=== PATIENT | male | born 1995 | race Two or more races ===

== ENCOUNTER 2023-12-25 21:32 | Emergency (ER) | payer MEDICAID, SELFPAY ==
[2023-12-25 22:05] VITALS: BP 124/81; PULSE 62; RESP 16; TEMP 36.6; O2SAT 99
[2023-12-25] MEDS: LORazepam 0.5 MG TABLET 2 MG PO (22:20)
[2023-12-25 22:42] LABS: Basophils # (Auto) 0.1 Thou/mm3 (0.0-0.2); Basophils % (Auto) 2 % (0-2.5); Eosinophils # (Auto) 0.1 Thou/mm3 (0.0-0.5); Eosinophils % (Auto) 3 % (0-10); Hemoglobin 14.3 g/dL (13.5-16.0); Immature Granulocytes % (Auto) 0 % (0-0); Immature Granulocytes Auto 0.01 Thou/mm3 (0.00-0.00); Lymphocytes # (Auto) 2.9 Thou/mm3 (1.0-4.8); Lymphocytes % (Auto) 65 % (10-50); Mean Corpuscular HGB Conc 35.8 g/dl (31.0-37.0); Mean Corpuscular Hemoglobin 35.6 pg (25.0-35.0); Mean Corpuscular Volume 100 fL (80-100); Monocytes # (Auto) 0.4 Thou/mm3 (0.0-0.8); Monocytes % (Auto) 8 % (0-12); Neutrophils % (Auto) 22 % (37-80); Nucleated Red Blood Cell % 0 /100 WBC (0); Platelet Count 366 Thou/mm3 (140-440); RDW Standard Deviation 49.8 fL (35.1-43.9); Red Blood Count 4.02 Miln/mm3 (4.50-5.90); White Blood Count 4.5 Thou/mm3 (3.8-10.6)
[2023-12-25 23:00] LABS: Alanine Aminotransferase 47 U/L (10-49); Albumin, Serum 5.2 gm/dL (3.5-5.0); Albumin/Globulin Ratio 1.6 (1.2-2.2); Alkaline Phosphatase 152 U/L (46-116); Anion Gap 11 (7-16); Aspartate Amino Transferase 91 U/L (0-34); BUN/Creatinine Ratio 6 Ratio (12-20); Bilirubin,Total 0.5 mg/dL (0.3-1.2); Blood Urea Nitrogen 5 mg/dL (9-23); Calcium 9.3 mg/dL (8.3-10.6); Calcium (Corrected) 9.3 mg/dL (8.5-10.1); Chloride 103 mMol/L (98-107); Creatinine (Component) 0.8 mg/dL (0.6-1.3); Globulin 3.2 gm/dL (2.3-3.5); Glucose 92 mg/dL (74-106); Magnesium 2.3 mg/dL (1.6-2.6); Osmolality,Calculated 274 (275-295); Phosphorous 4.1 mg/dL (2.4-5.1); Potassium 3.6 mMol/L (3.4-5.1); Sodium 139 mMol/L (136-145); Total Protein 8.4 gm/dL (5.7-8.2); eGFR > 60 See Note
--- NOTE | 2023-12-25 23:48 | XR_ITS ---
Examination: PA lateral chest 2 views Technique: Upright PA lateral chest 2 views Exam date and time: December 25, 2023 11:56 PM Indications: Onset chest pain today Findings: Normal heart size Lungs are clear. The osseous structures are intact Impression: No active disease
--- NOTE | 2023-12-25 23:49 | PD.EDRME ---
Rapid Medical Screening Exam RME Arrival date/time: 12/25/23 21:32 Chief Complaint: Seizure Time Seen by Provider: 12/25/23 22:04 Vital signs: Vital Signs Temperature 97.8 F 12/25/23 22:05 Pulse Rate 62 12/25/23 22:05 Respiratory Rate 16 12/25/23 22:05 Blood Pressure 124/81 12/25/23 22:05 Pulse Oximetry (%) 99 12/25/23 22:05 Oxygen Delivery Method Room Air 12/25/23 22:05 Vital signs reviewed by provider: Yes RME Narrative: 28-year-old male with history of alcohol withdrawal and alcohol withdrawal seizures, currently still drinking, cirrhosis, coming in because he is not feeling well. He states that he is feeling shaky. He last had beers today. This is similar to his previous presentations. Today it is not as worse. No syncope, or hallucinations.
[2023-12-26 00:25] VITALS: BP 116/76; PULSE 65; RESP 16; TEMP 36.4; O2SAT 97
--- NOTE | 2023-12-26 03:46 | PC.NURSE ---
PT SLEEPING IN ER LOBBY ON CHAIRS, PT IN ACUTE DISTRESS. PT WALKED TO TRIAGE DESK ASKING FOR WATER AND WATER WAS GIVEN.
--- NOTE | 2023-12-26 05:05 | PC.NURSE ---
PT AWAKE AND WALKING AROUND ED LOBBY. PT WALKING WITH A STEADY GAIT. PT STATES HE IS READY TO GO HOME. PT A/OX3 GCS 15. ALL DISCHARGE INSTRUCTIONS REVIEWED WITH PT. ALL QUESTIONS ANSWERED. PT VERBALLY STATES HE UNDERSTANDS.
[2023-12-26 05:29] VITALS: BP 142/67; PULSE 87; RESP 19; TEMP 36.7; O2SAT 99
--- NOTE | 2024-01-14 05:31 | PD.EDADULT ---
ED General RME/HPI General Chief complaint: Seizure Stated complaint: Seizures/Hx ETOH Time Seen by Provider: 12/25/23 22:04 Arrival date/time: 12/25/23 21:32 Limitations: no limitations RME / HPI RME / HPI narrative: 28-year-old male with history of alcohol withdrawal and alcohol withdrawal seizures, currently still drinking, cirrhosis, coming in because he is not feeling well. He states that he is feeling shaky. He last had beers today. This is similar to his previous presentations. Today it is not as worse. No syncope, or hallucinations. Related Data Previous Rx's ?Medication ?Instructions ?Recorded pantoprazole 40 mg tablet,delayed 40 mg PO QDAY 40 days #40 tabs 12/12/23 release thiamine mononitrate (vit B1) 100 100 mg PO QDAY #30 tabs 12/12/23 mg tablet (Vitamin B-1 (mononitrate)) ondansetron 4 mg disintegrating 4 mg PO Q8H PRN nausea and 01/04/24 tablet vomiting #10 tabs Allergies Allergy/AdvReac Type Severity Reaction Status Date / Time No Known Allergies Allergy Verified 01/03/24 17:13 Review of Systems Review of Systems Systems Reviewed: All systems reviewed, normal except as documented Past Medical History Past Medical History NEUROLOGIC: Positive Neurological Disorders and Seizures CARDIAC: Negative Cardiac Disorders or Congestive Heart Failure RESPIRATORY: Negative Chronic Obstructive Pulmonary Disease (COPD) or Asthma GASTROINTESTINAL: Positive Gastrointestinal Disorders and Cirrhosis GENITOURINARY: Negative Genitourinary Disorders or Renal Disease MUSCULOSKELETAL: Negative Musculoskeletal Disorders ENDOCRINE: Negative Diabetes Mellitus Type 1 or Diabetes Mellitus Type 2 HEMATOLOGIC: Negative Sickle Cell Disease PSYCHO/SOCIAL: Positive Depression and Anxiety OTHER HISTORY: Negative Autoimmune Disease, Blood Transfusions, Blood Transfusion Reaction, Anesthesia Reactions, MRSA or Cancer Family History FAMILY HISTORY: Positive Family Psychiatric Problems; Negative Family Respiratory Disorders, Family Cardiac Disorders, Family Gastrointestinal Problems, Family Cancer, Family Surgery or Family Anesthesia Reaction Surgical History SURGICAL: Negative Abdominal Surgery Social History SMOKING STATUS: Never smoker SECOND HAND EXPOSURE: No ED Exam General Limitations: Present no limitations General appearance: Present alert and in no apparent distress Head Head exam: Present atraumatic and other (Facial muscle wasting) Eye Eye exam: Present normal appearance, PERRL and EOMI ENT ENT exam: Present normal exam, normal oropharynx and mucous membranes moist Neck Neck exam: Present normal inspection, full ROM and trachea midline Chest Chest inspection: Present normal inspection and symmetric chest wall rise Respiratory Respiratory exam: Present normal lung sounds bilaterally Cardiovascular Cardiovascular exam: Present regular rate, normal rhythm and normal heart sounds Abdominal Exam Abdominal exam: Present soft, normal bowel sounds and other (No ascites) Extremities Exam Extremities exam: Present normal inspection and full ROM Back Exam Back exam: Present normal inspection and full ROM Neurological Exam Neurological exam: Present alert, oriented X3 and CN II-XII intact Psychiatric Psychiatric exam: Present normal affect and normal mood Skin Skin exam: Present warm, dry, intact and normal color Course Course Course Narrative: Patient given IV fluid Quality Measures none Orders Category Date Time Status EKG (ED ONLY) *Do not use* NOW Care 12/25/23 23:46 Completed IV [Insert IV] STAT Care 12/25/23 22:06 Completed Seizure precautions ONCE Care 12/25/23 22:06 Completed CXR2 [XR chest 2V] Stat Exams 12/25/23 23:48 Completed EKG (ED Only) Stat Exams 12/25/23 23:46 Ordered CBC Stat Lab 12/25/23 22:34 Completed CMP [Comprehensive Metabolic Panel] Stat Lab 12/25/23 22:34 Completed Mag [Magnesium] Stat Lab 12/25/23 22:34 Completed Phosphorous Stat Lab 12/25/23 22:34 Completed LORazepam [Ativan] Med 12/25/23 22:05 Discontinued 2 mg PO X1 ONE Vital Signs Vital signs: Vital Signs Temperature 97.8 F 12/25/23 22:05 Pulse Rate 62 12/25/23 22:05 Respiratory Rate 16 12/25/23 22:05 Blood Pressure 124/81 12/25/23 22:05 Pulse Oximetry (%) 99 12/25/23 22:05 Oxygen Delivery Method Room Air 12/25/23 22:05 [facility] Patient data External records reviewed:: Other (specify) (Seen in ED for alcohol withdrawals) Clinical information provided by:: patient Social determinants that could affect healthcare access:: alcohol use Patient has the following chronic illnesses:: Alcohol use How is presenting disease/condition affected by chronic disease/condition?: exacerbated by Evaluation data The following diagnostics were reviewed and interpreted by me:: lab results Lab and/or radiology exams considered but not ordered:: None Interpretation Summary: No hyponatremia Medications Medications considered but not ordered:: None Medication administrations:: Medication Administration History Discontinued Medications Lorazepam (Lorazepam 0.5 Mg Tablet) 2 mg PO X1 ONE Stop: 12/25/23 22:06 Last Admin: 12/25/23 22:20 Dose: 2 mg Documented By: As above Consultations Consultation(s) initiated? (list below): No Diagnosis Differential Diagnosis ED Complaint MDM: See above Most likely diagnosis given after review of the tests above:: Alcohol use Admission Indicated Admission indicated?: not indicated Explain why admission is indicated or not indicated:: Patient tolerating p.o. Not having alcohol withdrawal seizures Admission Request Was there a request for admission?: No Disposition Plan Disposition Plan: Discharge Discharge Attestation Discharge Attestation: The patient and all family members were given an opportunity to ask questions and understood the discharge instructions. Discharge instructions specifically effects, indications for sooner follow up or return to the emergency department, and the expected course of current diagnosis. Patient condition: Stable Medical Decision Making MDM Narrative MDM Narrative: Differential diagnosis includes dehydration, early withdrawals, electrolyte abnormality, intoxication Differential Diagnosis Differential Diagnosis: See above Medical Records Medical records reviewed: Yes I reviewed the patient's medical records. Medical records narrative: Patient history of alcohol withdrawals Lab Data 12/25/23 22:34 12/25/23 22:34 Labs: Lab Results 12/25/23 Range/Units 22:34 WBC 4.5 (3.8-10.6) Thou/mm3 RBC 4.02 L (4.50-5.90) Miln/mm3 Hgb 14.3 (13.5-16.0) g/dL Hct 40.0 L (41.0-53.0) % MCV 100 (80-100) fL MCH 35.6 H (25.0-35.0) pg MCHC 35.8 (31.0-37.0) g/dl RDW Std Deviation 49.8 H (35.1-43.9) fL Plt Count 366 D (140-440) Thou/mm3 Neut % (Auto) 22 L (37-80) % Lymph % (Auto) 65 H (10-50) % Eddy % (Auto) 8 (0-12) % Eos % (Auto) 3 (0-10) % Baso % (Auto) 2 (0-2.5) % Neut # (Auto) 1.0 L (1.8-7.7) Thou/mm3 Lymph # (Auto) 2.9 (1.0-4.8) Thou/mm3 Eddy # (Auto) 0.4 (0.0-0.8) Thou/mm3 Eos # (Auto) 0.1 (0.0-0.5) Thou/mm3 Baso # (Auto) 0.1 (0.0-0.2) Thou/mm3 Immature Gran # (Auto) 0.01 H (0.00-0.00) Thou/mm3 Absolute Nucleated RBC 0.00 (0.00-0.00) Thou/mm3 Immature Gran % 0 (0-0) % Nucleated RBC % 0 (0) /100 WBC Sodium 139 (136-145) mMol/L Potassium 3.6 (3.4-5.1) mMol/L Chloride 103 (98-107) mMol/L Carbon Dioxide 25.0 (20.0-31.0) mMol/L Anion Gap 11 (7-16) BUN 5 L (9-23) mg/dL Creatinine 0.8 (0.6-1.3) mg/dL Estim Creat Clear Calc Not Performed. eGFR > 60 (60 - ) See Note BUN/Creatinine Ratio 6 L (12-20) Ratio Glucose 92 (74-106) mg/dL Calculated Osmolality 274 L (275-295) Calcium 9.3 (8.3-10.6) mg/dL Corrected Calcium 9.3 (8.5-10.1) mg/dL Phosphorus 4.1 (2.4-5.1) mg/dL Magnesium 2.3 (1.6-2.6) mg/dL Total Bilirubin 0.5 (0.3-1.2) mg/dL AST 91 H (0-34) U/L ALT 47 (10-49) U/L Alkaline Phosphatase 152 H (46-116) U/L Total Protein 8.4 H (5.7-8.2) gm/dL Albumin 5.2 H (3.5-5.0) gm/dL Globulin 3.2 (2.3-3.5) gm/dL Albumin/Globulin Ratio 1.6 (1.2-2.2) Discharge Plan Plan Patient Disposition: HOME (Self Care) Patient condition on transfer: Stable Prescriptions/Referrals Prescriptions/Med Rec: No Action pantoprazole 40 mg Tablet,Delayed Release (Dr/Ec) 40 mg PO QDAY 40 Days Qty: 40 0RF thiamine mononitrate (vit B1) [Vitamin B-1 (mononitrate)] 100 mg Tablet 100 mg PO QDAY Qty: 30 0RF ondansetron 4 mg tablet,disintegrating 4 mg PO Q8H PRN (Reason: nausea and vomiting) Qty: 10 0RF Referrals: Balwinder Humphrey MD [Primary Care Provider] - In 1 week Problem List Clinical Impression: History of alcohol use Patient/Caregiver Discharge Instructions Diet Instructions: Stay hydrated with Pedialyte and Gatorade please see your primary care physician in the next few days. If you do not have a primary care physician you can call [phone] to make an appointment at the [facility]. Return to the emergency department for worsening symptoms, new concerns. Education Materials: Addiction Ask These Questions Print Language: [place] Rican Stand Alone Forms: Claire Award Info., Patient Portal Info Letter
== END 2023-12-26 05:34 | disposition home or self-care (01) ==
PROVIDERS: Emergency Provider Emergency Medicine; PCP Family Medicine
DX: F10.90 Alcohol use, unspecified, uncomplicated (principal); R56.9 Unspecified convulsions; R07.9 Chest pain, unspecified
CPT/HCPCS: 36415; 71046; 80053; 83735; 84100; 85025; 93005; 99283; A9270

== ENCOUNTER 2024-01-03 17:09 | Emergency (ER) | payer MEDICAID, SELFPAY ==
[2024-01-03 17:18] VITALS: BP 151/96; PULSE 95; RESP 18; TEMP 36.6; O2SAT 97; BMI 23.1
--- NOTE | 2024-01-03 17:38 | XR_ITS ---
Examination: Hand, right 3 views Technique: Hand AP, oblique, lateral 3 views Date and time of exam: January 03, 2024 1819 hrs. Indications: Work injury to the hand today, hand pain Findings: No acute fracture There is no true lateral view No opaque foreign body Impression: No acute fracture
--- NOTE | 2024-01-03 17:38 | XR_ITS ---
Examination: CT cervical spine without contrast 2-D sagittal reconstructions 2-D coronal reconstructions 3-D reconstructions. Exam date and time:January 03, 2024 1750 hrs. Indications: Seizure yesterday, patient fell with injury to the neck, neck pain Comparison: August 11, 2023 CTDI:vol (mGy) 8.16 DLP: (mGycm) 180 Technique: Multiple 2 mm axial sections of the cervical spine have been obtained. The coronal and sagittal reconstructions have been obtained. 3-D reconstructions have been obtained. Low dose protocols were performed. One or more of the following dose reduction techniques were used; automated exposure control, adjustment of the mA and/or KV according to patient size, use of iterative reconstruction technique. Findings: Axial sections demonstrate intact base of the skull. C1 exhibit satisfactory relationship to the odontoid. No acute cervical vertebral body fracture seen. Alignment posterior spinous processes satisfactory. Impression: No acute cervical fracture.
--- NOTE | 2024-01-03 17:38 | XR_ITS ---
Examination: Shoulder,right, 3 views Technique: Shoulder AP internal rotation, AP external rotation, Y view shoulder, 3 views Exam date and time :January 03, 2024 1619 hrs. Indications: Work injury to the shoulder today, shoulder pain. Findings: No acute fracture No shoulder dislocation Impression: No acute fracture
--- NOTE | 2024-01-03 17:38 | XR_ITS ---
Examination: CT brain head without contrast. 2-D sagittal coronal reconstructions Date and time of exam:January 03, 2024 1750 hrs. Comparison December 08, 2023 Indications: Seizure yesterday with injury to the head, head pain after falling CTDI: vol (mGy):46.2 DLP: (mGycm):965 Technique: Multiple CT axial sections of the brain have been obtained, 5 mm slice thickness. Contrast has not been administered. 2-D sagittal, coronal reconstructions have been obtained Low dose protocols were performed. One or more of the following dose reduction techniques were used; automated exposure control, adjustment of the mA and/or KV according to patient size, use of iterative reconstruction technique. Findings: Streak artifacts significantly limit this study No significant ventricular enlargement. Intra-axial or extra-axial hemorrhage density is not seen. No mass effect or midline shift Basal cisterns are not remarkable. Fourth ventricle is midline. Cranial vault intact. Impression: Streak artifacts limit this study No gross hemorrhage mass effect or midline shift
--- NOTE | 2024-01-03 17:38 | XR_ITS ---
Examination: CT chest, without intravenous contrast. CT abdomen, without intravenous contrast. CT pelvis, without intravenous contrast. 2-D sagittal and coronal reconstructions. 3-D reconstructions. Date and time of exam:January 03, 2024 1753 hrs. Indications: Seizure yesterday, patient fell with injury to the chest and abdomen, chest pain abdomen pain CTDI vol (mgy) 5.98 DLP (MGycm)435 Technique: Multiple CT images, 3.0 mm slice thickness, obtained chest, abdomen, pelvis, with the high-resolution 64 slice scanner.. Sagittal and coronal 2-D reconstructions are obtained. 3-D reconstructions Low dose protocols were performed. One or more of the following dose reduction techniques were used; automated exposure control, adjustment of the mA and/or KV according to patient size, use of iterative reconstruction technique. Findings: Lack of the intravenous contrast significantly limits assessment of body trauma Tiny air droplets adjacent to the rib sternal junctions Thoracic aorta pulmonary arteries intact No hemopericardium No pneumothorax pulmonary contusion or hemothorax Sternum thoracic vertebral bodies, ribs appear intact No liver splenic or renal laceration, no perinephric hematoma Liver is mildly irregular in contour Tiny gallstone Abdominal aorta intact No free blood in the abdomen Tiny fat-containing umbilical hernia Negative for pneumoperitoneum Urinary bladder intact Lumbar vertebral bodies bones of the pelvis and hips appear intact Impression: Thoracic aorta pulmonary arteries intact No hemopericardium pneumothorax pulmonary contusion or hemothorax No abdominal parenchymal laceration Abdominal aorta intact No free blood in the abdomen or pelvis Suspect primary hepatocellular disease
--- NOTE | 2024-01-03 17:39 | PD.EDRME ---
Rapid Medical Screening Exam RME Arrival date/time: 01/03/24 17:09 28-year-old male everyday drinker presents emergency department stating that he fell from a ladder yesterday Chief Complaint: Fall Time Seen by Provider: 01/03/24 17:31 Vital signs: Vital Signs Temperature 98 F 01/03/24 17:18 Pulse Rate 95 01/03/24 17:18 Respiratory Rate 18 01/03/24 17:18 Blood Pressure 151/96 H 01/03/24 17:18 Pulse Oximetry (%) 97 01/03/24 17:18 Oxygen Delivery Method Room Air 01/03/24 17:18
[2024-01-03 18:40] LABS: Basophils % (Auto) 1 % (0-2.5); Eosinophils % (Auto) 1 % (0-10); Hematocrit 41.6 % (41.0-53.0); Hemoglobin 14.8 g/dL (13.5-16.0); Immature Granulocytes % (Auto) 0 % (0-0); Immature Granulocytes Auto 0.01 Thou/mm3 (0.00-0.00); Lymphocytes % (Auto) 64 % (10-50); Mean Corpuscular HGB Conc 35.6 g/dl (31.0-37.0); Mean Corpuscular Hemoglobin 35.5 pg (25.0-35.0); Mean Corpuscular Volume 100 fL (80-100); Monocytes # (Auto) 0.4 Thou/mm3 (0.0-0.8); Monocytes % (Auto) 10 % (0-12); Neutrophils # (Auto) 1.2 Thou/mm3 (1.8-7.7); Neutrophils % (Auto) 25 % (37-80); Nucleated Red Blood Cell % 0 /100 WBC (0); Platelet Count 210 Thou/mm3 (140-440); RDW Standard Deviation 49.4 fL (35.1-43.9); Red Blood Count 4.17 Miln/mm3 (4.50-5.90); White Blood Count 4.7 Thou/mm3 (3.8-10.6)
[2024-01-03 18:54] LABS: Partial Thromboplastin Time 31.6 Seconds (22.0-36.0); Prothrombin Time 10.9 Seconds (9.0-12.2)
[2024-01-03 19:08] LABS: Alanine Aminotransferase 61 U/L (10-49); Albumin, Serum 5.2 gm/dL (3.5-5.0); Albumin/Globulin Ratio 1.7 (1.2-2.2); Alkaline Phosphatase 181 U/L (46-116); Anion Gap 12 (7-16); Aspartate Amino Transferase 174 U/L (0-34); BUN/Creatinine Ratio 5 Ratio (12-20); Bilirubin,Total 0.5 mg/dL (0.3-1.2); Blood Urea Nitrogen < 5 mg/dL (9-23); Calcium 9.3 mg/dL (8.3-10.6); Calcium (Corrected) 9.3 mg/dL (8.5-10.1); Carbon Dioxide 27.4 mMol/L (20.0-31.0); Chloride 99 mMol/L (98-107); Estimated Creatinine Clearance 93.7 mL/min (>60); Globulin 3.1 gm/dL (2.3-3.5); Glucose 94 mg/dL (74-106); Osmolality,Calculated 272 (275-295); Potassium 3.8 mMol/L (3.4-5.1); Sodium 138 mMol/L (136-145); Total Protein 8.3 gm/dL (5.7-8.2); eGFR > 60 See Note
[2024-01-03 19:10] LABS: Alcohol, Blood Medical 503.1 mg/dL (0-10.0)
--- NOTE | 2024-01-03 23:46 | EDNOTE_ITS ---
ED General RME/HPI General Chief complaint: Fall Stated complaint: BODY PAIN POST FALL TREE YESTERDAY; HX SEIZURE/CVA Time Seen by Provider: 01/03/24 17:31 Arrival date/time: 01/03/24 17:09 RME / HPI RME / HPI narrative: 01/03/24 17:09 28-year-old male everyday drinker presents emergency department stating that he fell from a ladder yesterday ----- Dr. Rascon?s Main ED Evaluation: 28yo male with a history of cirrhosis, alcohol abuse presents to the ED for a fall. Patient states he fell yesterday (does not specify how) and had generalized body pain, so he came in today for evaluation. Patient states he's been depressed since his left him and has not been able to work due to drinking excessively, and now states he wants to get sober. He denies any SI, HI or hallucinations. He denies any other associated symptoms. No known allergies. Related Data Previous Rx's ?Medication ?Instructions ?Recorded pantoprazole 40 mg tablet,delayed 40 mg PO QDAY 40 days #40 tabs 12/12/23 release thiamine mononitrate (vit B1) 100 100 mg PO QDAY #30 tabs 12/12/23 mg tablet (Vitamin B-1 (mononitrate)) Allergies Allergy/AdvReac Type Severity Reaction Status Date / Time No Known Allergies Allergy Verified 01/03/24 17:13 Review of Systems Review of Systems Systems Reviewed: All systems reviewed, normal except as documented Past Medical History Past Medical History NEUROLOGIC: Positive Seizures CARDIAC: Negative Cardiac Disorders or Congestive Heart Failure RESPIRATORY: Negative Chronic Obstructive Pulmonary Disease (COPD) or Asthma GASTROINTESTINAL: Positive Gastrointestinal Disorders and Cirrhosis GENITOURINARY: Negative Renal Disease ENDOCRINE: Negative Diabetes Mellitus Type 1 or Diabetes Mellitus Type 2 HEMATOLOGIC: Negative Sickle Cell Disease PSYCHO/SOCIAL: Positive Depression and Anxiety OTHER HISTORY: Negative Autoimmune Disease, Blood Transfusions, Blood Transfusion Reaction, Anesthesia Reactions, MRSA or Cancer Family History FAMILY HISTORY: Positive Family Psychiatric Problems; Negative Family Respiratory Disorders, Family Cardiac Disorders, Family Gastrointestinal Problems, Family Cancer, Family Surgery or Family Anesthesia Reaction Surgical History SURGICAL: Negative Abdominal Surgery Social History SMOKING STATUS: Never smoker SECOND HAND EXPOSURE: No ED Exam Narrative Physical exam: GENERAL APPEARANCE: alert and oriented x 4, well-developed, well-nourished, appears intoxicated, no acute distress VITALS: All vitals were reviewed and the pulse ox is 97% on room air, which is normal according to my interpretation. HEENT: Normocephalic, atraumatic; pupils equal, round, reactive to light; EOMI; mucous membranes pink, moist; oropharynx clear NECK: Supple LUNGS: CTABL; no wheezes, no rales, no rhonchi HEART: Regular rate, regular rhythm; normal S1, S2; no murmurs ABDOMEN: non distended; normal BS; soft, no tenderness, no guarding, no rebound; no masses, no organomegaly, no hernia BACK: no CVA tenderness EXTREMITIES: atraumatic; no edema NEUROLOGIC: awake; alert and oriented x4; cranial nerves II-XII grossly intact; no focal sensory or motor deficits PSYCHIATRIC: appropriate mood and affect SKIN: warm, dry, normal color; no rashes Course Quality Measures none Orders Category Date Time Status CT cervical spine wo con Stat Exams 01/03/24 17:[address] chest abdomen pelvis wo Stat Exams 01/03/24 17:[address] head/brain wo con Stat Exams 01/03/24 17:38 Completed XR hand comp RT min 3V Stat Exams 01/03/24 17:38 Completed XR shoulder RT min 2V Stat Exams 01/03/24 17:38 Completed Alcohol, Blood Medical Stat Lab 01/03/24 18:08 Completed CBC Stat Lab 01/03/24 18:08 Completed Comprehensive Metabolic Panel Stat Lab 01/03/24 18:08 Completed Partial Thromboplastin Time Stat Lab 01/03/24 18:08 Completed Prothrombin Time with INR Stat Lab 01/03/24 18:08 Completed Vital Signs Vital signs: Vital Signs Temperature 98 F 01/03/24 17:18 Pulse Rate 95 01/03/24 17:18 Respiratory Rate 18 01/03/24 17:18 Blood Pressure 151/96 H 01/03/24 17:18 Pulse Oximetry (%) 97 01/03/24 17:18 Oxygen Delivery Method Room Air 01/03/24 17:18 [facility] Patient data External records reviewed:: [facility] previous records (Per chart review, patient was admitted here on 12/08/23 for alcohol withdrawal seizures.) Clinical information provided by:: patient Social determinants that could affect healthcare access:: alcohol use Patient has the following chronic illnesses:: cirrhosis How is presenting disease/condition affected by chronic disease/condition?: u neffected by Evaluation data The following diagnostics were reviewed and interpreted by me:: lab results and radiology exam(s) Lab and/or radiology exams considered but not ordered:: none Interpretation Summary: CBC is normal, LFTs are elevated, Blood alcohol is elevated at 503.1, according to my interpretation. ---- [facility] Report Signed Patient: CASA DENTON. Record#: [id number] Birthdate: 1995 Age/Sex: 28 / M Location: [facility] Attending Dr: Ordering Physician: Luther HESS),Bonilla CLEMENT Date of Service: 01/03/24 Procedure(s): CT cervical spine wo con Accession Number(s): [id number] cc: Luther HESS),Bonilla CLEMENT; Devika Meyers MD; Saúl Barrett MD~ Examination: CT cervical spine without contrast 2-D sagittal reconstructions 2-D coronal reconstructions 3-D reconstructions. Exam date and time:January 03, 2024 1750 hrs. Indications: Seizure yesterday, patient fell with injury to the neck, neck pain Comparison: August 11, 2023 CTDI:vol (mGy) 8.16 DLP: (mGycm) 180 Technique: Multiple 2 mm axial sections of the cervical spine have been obtained. The coronal and sagittal reconstructions have been obtained. 3-D reconstructions have been obtained. Low dose protocols were performed. One or more of the following dose reduction techniques were used; automated exposure control, adjustment of the mA and/or KV according to patient size, use of iterative reconstruction technique. Findings: Axial sections demonstrate intact base of the skull. C1 exhibit satisfactory relationship to the odontoid. No acute cervical vertebral body fracture seen. Alignment posterior spinous processes satisfactory. Impression: No acute cervical fracture. Dictated By: Saúl Barrett MD Signed By: <Electronically signed by Saúl Barrett MD in OV> 01/03/241906 [facility] Report Signed Patient: CASA DENTON. Record#: [id number] Birthdate: 1995 Age/Sex: 28 / M Location: [facility] Attending Dr: Ordering Physician: Luther HESS)Bonilla NP Date of Service: 01/03/24 Procedure(s): CT chest abdomen pelvis wo Accession Number(s): [id number] cc: Luther HESS),Bonilla CLEMENT; Devika Meyers MD; Saúl Barrett MD~ Examination: CT chest, without intravenous contrast. CT abdomen, without intravenous contrast. CT pelvis, without intravenous contrast. 2-D sagittal and coronal reconstructions. 3-D reconstructions. Date and time of exam:January 03, 2024 1753 hrs. Indications: Seizure yesterday, patient fell with injury to the chest and abdomen, chest pain abdomen pain CTDI vol (mgy) 5.98 DLP (MGycm)435 Technique: Multiple CT images, 3.0 mm slice thickness, obtained chest, abdomen, pelvis, with the high-resolution 64 slice scanner.. Sagittal and coronal 2-D reconstructions are obtained. 3-D reconstructions Low dose protocols were performed. One or more of the following dose reduction techniques were used; automated exposure control, adjustment of the mA and/or KV according to patient size, use of iterative reconstruction technique. Findings: Lack of the intravenous contrast significantly limits assessment of body trauma Tiny air droplets adjacent to the rib sternal junctions Thoracic aorta pulmonary arteries intact No hemopericardium No pneumothorax pulmonary contusion or hemothorax Sternum thoracic vertebral bodies, ribs appear intact No liver splenic or renal laceration, no perinephric hematoma Liver is mildly irregular in contour Tiny gallstone Abdominal aorta intact No free blood in the abdomen Tiny fat-containing umbilical hernia Negative for pneumoperitoneum Urinary bladder intact Lumbar vertebral bodies bones of the pelvis and hips appear intact Impression: Thoracic aorta pulmonary arteries intact No hemopericardium pneumothorax pulmonary contusion or hemothorax No abdominal parenchymal laceration Abdominal aorta intact No free blood in the abdomen or pelvis Suspect primary hepatocellular disease Dictated By: Saúl Barrett MD Signed By: <Electronically signed by Saúl Barrett MD in OV> 01/03/241917 -------- [facility] Report Signed Patient: CASA DENTON. Record#: [id number] Birthdate: 1995 Age/Sex: 28 / M Location: [facility] Attending Dr: Ordering Physician: Bonilla Sloan NP, NP Date of Service: 01/03/24 Procedure(s): XR hand comp RT min 3V Accession Number(s): [id number] cc: Luther HESS)Bonilla NP; Devika Meyers MD; Saúl Barrett MD~ Examination: Hand, right 3 views Technique: Hand AP, oblique, lateral 3 views Date and time of exam: January 03, 2024 1819 hrs. Indications: Work injury to the hand today, hand pain Findings: No acute fracture There is no true lateral view No opaque foreign body Impression: No acute fracture Dictated By: Saúl Barrett MD Signed By: <Electronically signed by Saúl Barrett MD in OV> 01/03/241932 [facility] Report Signed Patient: CASA DENTON Record#: [id number] Birthdate: 1995 Age/Sex: 28 / M Location: [facility] Attending Dr: Ordering Physician: Bonilla Sloan NP, NP Date of Service: 01/03/24 Procedure(s): CT head/brain wo con Accession Number(s): [id number] cc: Luther HESS)Bonilla NP; Devika Meyers MD; Saúl Barrett MD~ Examination: CT brain head without contrast. 2-D sagittal coronal reconstructions Date and time of exam:January 03, 2024 1750 hrs. Comparison December 08, 2023 Indications: Seizure yesterday with injury to the head, head pain after falling CTDI: vol (mGy):46.2 DLP: (mGycm):965 Technique: Multiple CT axial sections of the brain have been obtained, 5 mm slice thickness. Contrast has not been administered. 2-D sagittal, coronal reconstructions have been obtained Low dose protocols were performed. One or more of the following dose reduction techniques were used; automated exposure control, adjustment of the mA and/or KV according to patient size, use of iterative reconstruction technique. Findings: Streak artifacts significantly limit this study No significant ventricular enlargement. Intra-axial or extra-axial hemorrhage density is not seen. No mass effect or midline shift Basal cisterns are not remarkable. Fourth ventricle is midline. Cranial vault intact. Impression: Streak artifacts limit this study No gross hemorrhage mass effect or midline shift Dictated By: Saúl Barrett MD Signed By: <Electronically signed by Saúl Barrett MD in OV> 01/03/240 ------ [facility] Report Signed Patient: CASA DENTON Record#: [id number] Birthdate: 1995 Age/Sex: 28 / M [facility] Dr: Ordering Physician: Luther HESS)Bonilla NP Date of Service: 01/03/24 Procedure(s): XR shoulder RT min 2V Accession Number(s): [id number] cc: Luther HESS),Bonilla CLEMENT; Devika Meyers MD; Saúl Barrett MD~ Examination: Shoulder,right, 3 views Technique: Shoulder AP internal rotation, AP external rotation, Y view shoulder, 3 views Exam date and time :January 03, 2024 1619 hrs. Indications: Work injury to the shoulder today, shoulder pain. Findings: No acute fracture No shoulder dislocation Impression: No acute fracture Dictated By: Saúl Barrett MD Signed By: <Electronically signed by Saúl Barrett MD in OV> 01/03/241933 Medications Medications considered but not ordered:: none Medication administrations:: see above, if any Consultations Consultation(s) initiated? (list below): No Diagnosis Differential Diagnosis ED Complaint MDM: alcohol intoxication, fall, fracture, dislocation, contusion, ICH Most likely diagnosis given after review of the tests above:: Patient eloped prior to final disposition. Admission Indicated Admission indicated?: not indicated Explain why admission is indicated or not indicated:: Patient eloped prior to final disposition. Admission Request Was there a request for admission?: No Disposition Plan Disposition Plan: Discharge Discharge Attestation Discharge Attestation: The patient and all family members were given an opportunity to ask questions and understood the discharge instructions. Discharge instructions specifically effects, indications for sooner follow up or return to the emergency department, and the expected course of current diagnosis. Patient condition: Stable Medical Decision Making Differential Diagnosis Differential Diagnosis: alcohol intoxication, fall, fracture, dislocation, contusion, ICH Lab Data 01/03/24 18:08 01/03/24 18:08 Labs: Lab Results 01/03/24 Range/Units 18:08 WBC 4.7 (3.8-10.6) Thou/mm3 RBC 4.17 L (4.50-5.90) Miln/mm3 Hgb 14.8 (13.5-16.0) g/dL Hct 41.6 (41.0-53.0) % MCV 100 (80-100) fL MCH 35.5 H (25.0-35.0) pg MCHC 35.6 (31.0-37.0) g/dl RDW Std Deviation 49.4 H (35.1-43.9) fL Plt Count 210 D (140-440) Thou/mm3 Neut % (Auto) 25 L (37-80) % Lymph % (Auto) 64 H (10-50) % Levy % (Auto) 10 (0-12) % Eos % (Auto) 1 (0-10) % Baso % (Auto) 1 (0-2.5) % Neut # (Auto) 1.2 L (1.8-7.7) Thou/mm3 Lymph # (Auto) 3.0 (1.0-4.8) Thou/mm3 Levy # (Auto) 0.4 (0.0-0.8) Thou/mm3 Eos # (Auto) 0.0 (0.0-0.5) Thou/mm3 Baso # (Auto) 0.0 (0.0-0.2) Thou/mm3 Immature Gran # (Auto) 0.01 H (0.00-0.00) Thou/mm3 Absolute Nucleated RBC 0.00 (0.00-0.00) Thou/mm3 Immature Gran % 0 (0-0) % Nucleated RBC % 0 (0) /100 WBC PT 10.9 (9.0-12.2) Seconds INR 1.0 (0.9-1.3) APTT 31.6 (22.0-36.0) Seconds Sodium 138 (136-145) mMol/L Potassium 3.8 (3.4-5.1) mMol/L Chloride 99 (98-107) mMol/L Carbon Dioxide 27.4 (20.0-31.0) mMol/L Anion Gap 12 (7-16) BUN < 5 L (9-23) mg/dL Creatinine 1.0 (0.6-1.3) mg/dL Estim Creat Clear Calc 93.7 (>60) mL/min eGFR > 60 (60 - ) See Note BUN/Creatinine Ratio 5 L (12-20) Ratio Glucose 94 (74-106) mg/dL Calculated Osmolality 272 L (275-295) Calcium 9.3 (8.3-10.6) mg/dL Corrected Calcium 9.3 (8.5-10.1) mg/dL Total Bilirubin 0.5 (0.3-1.2) mg/dL AST 174 H (0-34) U/L ALT 61 H (10-49) U/L Alkaline Phosphatase 181 H (46-116) U/L Total Protein 8.3 H (5.7-8.2) gm/dL Albumin 5.2 H (3.5-5.0) gm/dL Globulin 3.1 (2.3-3.5) gm/dL Albumin/Globulin Ratio 1.7 (1.2-2.2) Ethyl Alcohol 503.1 H* (0-10.0) mg/dL Discharge Plan Plan Patient Disposition: Elopement Prescriptions/Referrals Prescriptions/Med Rec: No Action pantoprazole 40 mg Tablet,Delayed Release (Dr/Ec) 40 mg PO QDAY 40 Days Qty: 40 0RF thiamine mononitrate (vit B1) [Vitamin B-1 (mononitrate)] 100 mg Tablet 100 mg PO QDAY Qty: 30 0RF Referrals: Devika Meyers MD [Primary Care Provider] - In 1 week Problem List Clinical Impression: Alcohol intoxication Patient/Caregiver Discharge Instructions Print Language: [place]an
--- NOTE | 2024-01-04 01:00 | PC.NURSE ---
NO ANSWER FOR CALL BACK TO MAIN ED
--- NOTE | 2024-01-04 01:30 | PC.NURSE ---
NO ANSWER FOR CALL BACK TO MAIN ED
== END 2024-01-04 02:52 | disposition left against medical advice (07) ==
LOC: SERX 18:19
PROVIDERS: Nurse Practitioner Primary Care; Emergency Provider Emergency Medicine
DX: F10.229 Alcohol dependence with intoxication, unspecified (principal); S69.91XA Unspecified injury of right wrist, hand and finger(s), initial encounter; S19.9XXA Unspecified injury of neck, initial encounter; S09.90XA Unspecified injury of head, initial encounter; S29.9XXA Unspecified injury of thorax, initial encounter; S39.91XA Unspecified injury of abdomen, initial encounter; S49.91XA Unspecified injury of right shoulder and upper arm, initial encounter; W11.XXXA Fall on and from ladder, initial encounter; Y90.8 Blood alcohol level of 240 mg/100 ml or more; Z53.29 Procedure and treatment not carried out because of patient's decision for other reasons
CPT/HCPCS: 36415; 70450; 71250; 72125; 73030; 73130; 74176; 80053; 80320; 85025; 85610; 85730; 99284; G0480

== ENCOUNTER 2024-01-04 05:43 | Emergency (ER) | payer MEDICAID, SELFPAY ==
[2024-01-04 05:44] VITALS: BMI 23.1
--- NOTE | 2024-01-04 05:51 | XR_ITS ---
Examination: AP chest single view TECHNIQUE: AP portable upright chest single view Exam date and time: April 05, 2023 0603 hours INDICATIONS: Coughing today. FINDINGS: Normal heart size Lungs are clear. The osseous structures are intact IMPRESSION: No active disease
[2024-01-04 05:57] VITALS: BP 125/82; PULSE 94; RESP 20; TEMP 37.3; O2SAT 96
[2024-01-04 06:11] LABS: Basophils % (Auto) 1 % (0-2.5); Eosinophils # (Auto) 0.1 Thou/mm3 (0.0-0.5); Eosinophils % (Auto) 1 % (0-10); Hematocrit 40.4 % (41.0-53.0); Hemoglobin 14.4 g/dL (13.5-16.0); Immature Granulocytes % (Auto) 0 % (0-0); Immature Granulocytes Auto 0.01 Thou/mm3 (0.00-0.00); Lymphocytes # (Auto) 3.2 Thou/mm3 (1.0-4.8); Lymphocytes % (Auto) 52 % (10-50); Mean Corpuscular HGB Conc 35.6 g/dl (31.0-37.0); Mean Corpuscular Hemoglobin 35.8 pg (25.0-35.0); Mean Corpuscular Volume 101 fL (80-100); Monocytes # (Auto) 0.5 Thou/mm3 (0.0-0.8); Monocytes % (Auto) 8 % (0-12); Neutrophils # (Auto) 2.3 Thou/mm3 (1.8-7.7); Neutrophils % (Auto) 38 % (37-80); Nucleated Red Blood Cell % 0 /100 WBC (0); Platelet Count 179 Thou/mm3 (140-440); RDW Standard Deviation 49.3 fL (35.1-43.9); Red Blood Count 4.02 Miln/mm3 (4.50-5.90); White Blood Count 6.1 Thou/mm3 (3.8-10.6)
[2024-01-04] MEDS: SODIUM CHLORIDE 0.9% 1000 ML 1,000 ML 999 ML IV (06:14)
[2024-01-04 06:23] LABS: Partial Thromboplastin Time 26.3 Seconds (22.0-36.0); Prothrombin Time 11.4 Seconds (9.0-12.2)
[2024-01-04 06:27] LABS: Anion Gap 14 (7-16); BUN/Creatinine Ratio 10 Ratio (12-20); Blood Urea Nitrogen 9 mg/dL (9-23); Carbon Dioxide 22.7 mMol/L (20.0-31.0); Chloride 103 mMol/L (98-107); Creatinine (Component) 0.9 mg/dL (0.6-1.3); Potassium 3.8 mMol/L (3.4-5.1); Sodium 140 mMol/L (136-145)
[2024-01-04 06:28] LABS: Alanine Aminotransferase 62 U/L (10-49); Albumin, Serum 5.1 gm/dL (3.5-5.0); Albumin/Globulin Ratio 1.6 (1.2-2.2); Alcohol, Blood Medical 196.7 mg/dL (0-10.0); Alkaline Phosphatase 176 U/L (46-116); Aspartate Amino Transferase 176 U/L (0-34); Bilirubin,Total 0.8 mg/dL (0.3-1.2); Calcium 9.4 mg/dL (8.3-10.6); Calcium (Corrected) 9.4 mg/dL (8.5-10.1); Estimated Creatinine Clearance 104.1 mL/min (>60); Globulin 3.2 gm/dL (2.3-3.5); Glucose 77 mg/dL (74-106); Lipase 54 U/L (12-53); Magnesium 2.4 mg/dL (1.6-2.6); Osmolality,Calculated 277 (275-295); Total Protein 8.3 gm/dL (5.7-8.2); Troponin I < 0.020 ng/mL (0.0-0.045); eGFR > 60 See Note
[2024-01-04] MEDS: LORazepam 2 MG/ML VIAL IVP (06:38)
[2024-01-04] MEDS: DiphenhydrAMINE INJ 50 MG/ML VIAL IV (06:38)
--- NOTE | 2024-01-04 06:40 | EDNOTE_ITS ---
ED Alcohol RME/HPI General Chief Complaint: Abdominal Pain Stated Complaint: ABDOMINAL PAIN, VOMITING BLOOD Time Seen by Provider: 01/04/24 05:47 Arrival date/time: 01/04/24 05:43 RME / HPI RME / HPI narrative: 28 year old male with history of alcohol withdrawal seizures, multiple admissions for alcohol withdrawals, and continued alcohol use presents to the ED for complaint of everything hurts today. Accompanied by nausea, retching, multiple episodes of vomiting, and diffuse abdominal pain. Patient evidently was evaluated here last night/early this morning for evaluation of body pain after fall occurring yesterday. Patient eloped from the ED and states he went home to sleep it off. States while trying to sleep he began to feel like I couldn't breathe and returned to the ED. Patient admits to drinking 6-7 shots of whiskey and two 40oz bottles of beer daily. States he last drank 2 days ago. Related Data Previous Rx's ?Medication ?Instructions ?Recorded pantoprazole 40 mg tablet,delayed 40 mg PO QDAY 40 days #40 tabs 12/12/23 release thiamine mononitrate (vit B1) 100 100 mg PO QDAY #30 tabs 12/12/23 mg tablet (Vitamin B-1 (mononitrate)) ondansetron 4 mg disintegrating 4 mg PO Q8H PRN nausea and 01/04/24 tablet vomiting #10 tabs Allergies Allergy/AdvReac Type Severity Reaction Status Date / Time No Known Allergies Allergy Verified 01/03/24 17:13 Review of Systems Review of Systems Narrative Review of Systems: Gen: No fever, no chills, no weight loss EYES: No discharge, no visual changes, no pain HEENT: No ear pain, no congestion, no sore throat PULM: no shortness of breath, no cough, no congestion CV: No chest pain, no dyspnea on exertion, no palpitations, no chest tightness GI: +nausea, +retching, + vomiting, no diarrhea, no pain, no constipation : No frequency, no urgency,? no dysuria Musc/skel: + everything hurts Skin: No rash, no ecchymosis, no lesions Psyc: +alcohol use. No hallucinations, no depression Heme/Lymph: No easy bleeding or bruising tendencies Neuro: No weakness, no headache Past Medical History Past Medical History NEUROLOGIC: Positive Neurological Disorders and Seizures GASTROINTESTINAL: Positive Gastrointestinal Disorders and Cirrhosis PSYCHO/SOCIAL: Positive Depression and Anxiety Family History FAMILY HISTORY: Positive Family Psychiatric Problems Surgical History SURGICAL: Negative Abdominal Surgery Social History SMOKING STATUS: Never smoker SECOND HAND EXPOSURE: No ED Exam Narrative Physical exam: GENERAL APPEARANCE: AxOx4, no obvious distress, smells of alcohol and appears intoxicated, slurred speech, mild-moderate fine full body tremors HEENT: NC, AT. MMM. EOMI, clear conjunctiva, oropharynx clear. NECK: Supple without lymphadenopathy. No stiffness or restricted ROM. HEART: Normal rate and regular rhythm, normal S1/S1, no m/r/g LUNGS: CTAB, moving air well. No crackles or wheezes are heard. ABDOMEN: Soft, nontender, nondistended with good bowel sounds heard. BACK: No midline C/T/L spine pain or deformity, No CVAT, no obvious deformity. EXTREMITIES: Without cyanosis, clubbing or edema. MUSCULOSKELETAL: FROM of all major joints, no chest tenderness NEUROLOGICAL: Mild to moderate fine full body tremors, slurred speech. Alert and oriented, moving all 4 extremities. Skin: Warm and dry without any rash. 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 STAT Care 01/04/24 05:47 Completed Continuous Pulse Oximetry STAT Care 01/04/24 05:47 Completed EKG (ED ONLY) *Do not use* NOW Care 01/04/24 05:51 Completed In and Out Catheter X1 Care 01/04/24 05:47 Completed Insert IV STAT Care 01/04/24 05:47 Completed NPO STAT Care 01/04/24 05:47 Completed Occult Blood,Stool (Nursing) NEEDED Care 01/04/24 05:47 Completed Orthostatic Vitals NOW Care 01/04/24 05:47 Completed EKG (ED Only) Stat Exams 01/04/24 05:51 Ordered XR chest 1V portable Stat Exams 01/04/24 05:51 Completed Alcohol, Blood Medical Stat Lab 01/04/24 05:56 Completed CBC Stat Lab 01/04/24 05:56 Completed Comprehensive Metabolic Panel Stat Lab 01/04/24 05:56 Completed Lipase Stat Lab 01/04/24 05:56 Completed Magnesium Stat Lab 01/04/24 05:56 Completed Partial Thromboplastin Time Stat Lab 01/04/24 05:56 Completed Prothrombin Time with INR Stat Lab 01/04/24 05:56 Completed Troponin I Stat Lab 01/04/24 05:56 Completed Type and Screen Stat Lab 01/04/24 05:56 Completed Diazepam [Valium] Med 01/04/24 06:29 Discontinued 20 mg PO X1 ONE DiphenhydrAMINE INJ [Benadryl Inj] Med 01/04/24 06:27 Discontinued 50 mg IV X1 ONE LORazepam [Ativan Inj] Med 01/04/24 06:27 Discontinued 2 mg IVP X1 ONE Ondansetron Inj [Zofran Inj] Med 01/04/24 06:27 Discontinued 4 mg IV X1 ONE Sodium Chloride 0.9% 1000 ml [Ns] 1,000 ml Med 01/04/24 05:47 Discontinued IV 999 mls/hr Reevaluation(s) Reevaluation #1: We reviewed all the results, analysis, and treatment plans. Patient is amenable to discharge. Strict return precautions were outlined. Patient was discharged in stable condition. Time: 09:00 Vital Signs Vital signs: Vital Signs Temperature 99.2 F 01/04/24 05:57 Pulse Rate 94 01/04/24 05:57 Respiratory Rate 20 01/04/24 05:57 Blood Pressure 125/82 01/04/24 05:57 Pulse Oximetry (%) 96 01/04/24 05:57 Oxygen Delivery Method Room Air 01/04/24 05:57 Pulse ox is 96% on room air which is adequate. Discharge Plan Plan Patient Disposition: HOME (Self Care) Prescriptions/Referrals Prescriptions/Med Rec: New ondansetron 4 mg tablet,disintegrating 4 mg PO Q8H PRN (Reason: nausea and vomiting) Qty: 10 0RF No Action pantoprazole 40 mg Tablet,Delayed Release (Dr/Ec) 40 mg PO QDAY 40 Days Qty: 40 0RF thiamine mononitrate (vit B1) [Vitamin B-1 (mononitrate)] 100 mg Tablet 100 mg PO QDAY Qty: 30 0RF Referrals: Balwinder Humphrey MD [Primary Care Provider] - In 1 week Problem List Clinical Impression: Alcohol abuse, Alcohol intoxication, Tata-Glynn tear Patient/Caregiver Discharge Instructions Education Materials: Tata-Glynn Tear, ED Alcohol Intoxication, ED Alcohol Abuse Print Language: Kiswahili Stand Alone Forms: Claire Award Info., Patient Portal Info Letter Alcohol MDM Narrative MDM Narrative: I Hazel Pastrana, am scribing for and in the presence of Dr. Tamayo. Patient data External records reviewed:: [facility] previous records (I reviewed ED visit from yesterday 01/03/2024 ) Clinical information provided by:: patient Social determinants that could affect healthcare access:: alcohol use Patient has the following chronic illnesses:: alcohol withdrawal seizures, multiple admissions for alcohol withdrawals, and continued alcohol use How is presenting disease/condition affected by chronic disease/condition?: exacerbated by Evaluation data The following diagnostics were reviewed and interpreted by me:: lab results, radiology exam(s) and EKG tracing(s) (Normal sinus rhythm, HR 88, normal axis, normal interval, no acute ST or T-wave changes, no STEMI. ) Lab and/or radiology exams considered but not ordered:: None Interpretation Summary: Ordering Physician: Kurtis Rascon MD Date of Service: 01/04/24 Procedure(s): XR chest 1V portable Accession Number(s): [id number] cc: Balwinder Humphrey MD; Saúl Barrett MD; Kurtis Rascon MD~ Examination: AP chest single view TECHNIQUE: AP portable upright chest single view Exam date and time: April 05, 2023 0603 hours INDICATIONS: Coughing today. FINDINGS: Normal heart size Lungs are clear. The osseous structures are intact IMPRESSION: No active disease Dictated By:Saúl Barrett MD Signed By:<Electronically signed by Saúl Barrett MD in OV>01/04/24 0904 Medications / Prescriptions Medications or Prescriptions considered but not ordered:: None Medication administrations:: Medication Administration History Discontinued Medications Diazepam (Diazepam 5 Mg Tablet) 20 mg PO X1 ONE Stop: 01/04/24 06:30 Last Admin: 01/04/24 06:41 Dose: 20 mg Documented By: TC Diphenhydramine HCl (Diphenhydramine Inj 50 Mg/Ml Vial) 50 mg IV X1 ONE Stop: 01/04/24 06:28 Last Admin: 01/04/24 06:38 Dose: 50 mg Documented By: TC Sodium Chloride (Ns) 1,000 mls @ 999 mls/hr IV .Q1H1M ONE Stop: 01/04/24 06:47 Last Infusion: 01/04/24 06:35 Dose: Infused Documented By: Admin: 01/04/24 06:14 Dose: 999 mls/hr Documented By: TC Lorazepam (Lorazepam 2 Mg/Ml Vial) 2 mg IVP X1 ONE Stop: 01/04/24 06:28 Last Admin: 01/04/24 06:38 Dose: 2 mg Documented By: TC Ondansetron HCl (Ondansetron Inj 2 Mg/Ml Inj 2 Ml) 4 mg IV X1 ONE; Protocol Stop: 01/04/24 06:28 Last Admin: 01/04/24 06:44 Dose: 4 mg Documented By: TC See above Consultations Consultation(s) initiated? (list below): No Diagnosis Differential diagnosis alcohol: alcohol withdrawal delirium, alcohol intoxication, alcohol ketoacidosis and alcohol withdrawal syndrome Most likely diagnosis given after review of the tests above:: Alcohol abuse Alcohol intoxication Tata-glynn tear Admission Indicated Admission indicated?: not indicated Admission Request Was there a request for admission?: No Disposition Plan Disposition Plan: Discharge Discharge Attestation Discharge Attestation: The patient and all family members were given an opportunity to ask questions and understood the discharge instructions. Discharge instructions specifically effects, indications for sooner follow up or return to the emergency department, and the expected course of current diagnosis. Patient condition: Stable
[2024-01-04] MEDS: DIAZEPAM 5 MG TABLET 20 MG PO (06:41)
[2024-01-04] MEDS: ONDANSETRON INJ 2 MG/ML INJ 2 ML 4 MG IV (06:44)
[2024-01-04 06:47] VITALS: BP 120/60; PULSE 75; RESP 19; O2SAT 95
[2024-01-04 08:00] VITALS: BP 108/60; PULSE 80; RESP 20; O2SAT 96
--- NOTE | 2024-01-04 10:00 | PC.NURSE ---
Pt resting w/eyes closed. Does not appear to be in pain or distress, no obvious sweating noted, VSS on tele.
--- NOTE | 2024-01-04 10:57 | PC.NURSE ---
Spoke w/pts father at this time, brother will be coming to pick pt up, as pt is drowsy from meds.
[2024-01-04 11:40] VITALS: BP 110/59; PULSE 88; RESP 20; TEMP 36.6; O2SAT 96
--- NOTE | 2024-01-04 12:02 | PC.NURSE ---
family here to pick pt up.
== END 2024-01-04 11:41 | disposition home or self-care (01) ==
PROVIDERS: Emergency Medicine; Emergency Provider Emergency Medicine; PCP Family Medicine
DX: F10.129 Alcohol abuse with intoxication, unspecified (principal); K22.6 Gastro-esophageal laceration-hemorrhage syndrome; R05.9 Cough, unspecified; Y90.6 Blood alcohol level of 120-199 mg/100 ml
CPT/HCPCS: 36415; 71045; 80053; 80320; 83690; 83735; 84484; 85025; 85610; 85730; 86850; 86900; 86901; 93005; 96374; 99284; J1200; J2060; J2405; J7030; A9270; G0480

== ENCOUNTER 2024-01-16 17:31 | Inpatient (IN) | payer MEDICAID, SELFPAY ==
[2024-01-16 17:44] VITALS: BP 124/74; PULSE 73; RESP 16; TEMP 37.2; O2SAT 93
[2024-01-16 18:00] VITALS: PULSE 70; RESP 19; O2SAT 99
[2024-01-16 18:05] VITALS: BMI 25.7
[2024-01-16 18:16] VITALS: BP 130/87; PULSE 95; RESP 23; TEMP 36.8; O2SAT 95
--- NOTE | 2024-01-16 19:11 | PD.EDSOB ---
ED SOB =RME/HPI General Chief Complaint: Shortness of Breath/Dyspnea Stated Complaint: SOB Time Seen by Provider: 01/16/24 18:32 Arrival date/time: 01/16/24 17:31 Limitations: no limitations RME / HPI RME / HPI Narrative: Dr. Avalos's Main ED Evaluation: 28yo male with a history of seizures, cirrhosis, anxiety, depression VIRGEN presents to the ED for a chief complaint of generalized body pain x 1 week. Patient states he stopped drinking for 1 month up until yesterday. He endorses not staying hydrated. He denies any illicit drug use. He denies any falls or trauma. He endorses having shortness of breath, 3 episodes of hematemesis, and the inability to sleep for the last 2 days. He denies any other associated symptoms. No known allergies. Patient states he wants to stop drinking. Related Data Previous Rx's ?Medication ?Instructions ?Recorded pantoprazole 40 mg tablet,delayed 40 mg PO QDAY 40 days #40 tabs 12/12/23 release thiamine mononitrate (vit B1) 100 100 mg PO QDAY #30 tabs 12/12/23 mg tablet (Vitamin B-1 (mononitrate)) ondansetron 4 mg disintegrating 4 mg PO Q8H PRN nausea and 01/04/24 tablet vomiting #10 tabs Allergies Allergy/AdvReac Type Severity Reaction Status Date / Time No Known Allergies Allergy Verified 01/03/24 17:13 Review of Systems Review of Systems Systems Reviewed: All systems reviewed, normal except as documented Past Medical History Past Medical History NEUROLOGIC: Positive Neurological Disorders and Seizures CARDIAC: Negative Cardiac Disorders or Congestive Heart Failure RESPIRATORY: Negative Chronic Obstructive Pulmonary Disease (COPD) or Asthma GASTROINTESTINAL: Positive Gastrointestinal Disorders and Cirrhosis GENITOURINARY: Negative Genitourinary Disorders or Renal Disease MUSCULOSKELETAL: Negative Musculoskeletal Disorders ENDOCRINE: Negative Diabetes Mellitus Type 1 or Diabetes Mellitus Type 2 HEMATOLOGIC: Negative Sickle Cell Disease PSYCHO/SOCIAL: Positive Depression and Anxiety OTHER HISTORY: Negative Autoimmune Disease, Blood Transfusions, Blood Transfusion Reaction, Anesthesia Reactions, MRSA or Cancer Family History FAMILY HISTORY: Positive Family Psychiatric Problems; Negative Family Respiratory Disorders, Family Cardiac Disorders, Family Gastrointestinal Problems, Family Cancer, Family Surgery or Family Anesthesia Reaction Surgical History SURGICAL: Negative Abdominal Surgery Social History SMOKING STATUS: Never smoker SECOND HAND EXPOSURE: No ED Exam General Limitations: Present no limitations General appearance: Present alert, in no apparent distress and other (baseline tremoring) Head Head exam: Present atraumatic Eye Eye exam: Present normal appearance, PERRL and EOMI ENT ENT exam: Present normal exam, normal oropharynx and mucous membranes moist Neck Neck exam: Present normal inspection, full ROM and trachea midline Chest Chest inspection: Present normal inspection and symmetric chest wall rise Respiratory Respiratory exam: Present normal lung sounds bilaterally Cardiovascular Cardiovascular exam: Present regular rate, normal rhythm and normal heart sounds Abdominal Exam Abdominal exam: Present soft and normal bowel sounds Extremities Exam Extremities exam: Present normal inspection and full ROM Back Exam Back exam: Present normal inspection and full ROM Neurological Exam Neurological exam: Present alert, oriented X3 and CN II-XII intact Psychiatric Psychiatric exam: Present normal affect and normal mood Skin Skin exam: Present warm, dry, intact and normal color; Absent other (ecchymosis) Course Quality Measures none Orders Category Date Time Status CT head/brain wo con Stat Exams 01/16/24 20:50 Completed XR chest 1V portable Stat Exams 01/16/24 20:53 Completed Alcohol, Blood Medical Stat Lab 01/16/24 19:26 Completed Alcohol, Urine Stat Lab 01/16/24 19:50 Completed CBC [CBC] Stat Lab 01/16/24 19:26 Completed CK [Creatine Kinase] Stat Lab 01/16/24 19:26 Completed CMP [Comprehensive Metabolic Panel] Stat Lab 01/16/24 19:26 Completed Drug Screen,Urine Stat Lab 01/16/24 19:50 Completed Mag [Magnesium] Stat Lab 01/16/24 19:26 Completed Phosphorous Stat Lab 01/16/24 19:26 Completed Urinalysis Stat Lab 01/16/24 19:50 Completed Dextrose 5%-Ns [D5-Ns] 1,000 ml Med 01/16/24 21:00 Active IV 100 mls/hr Folic Acid Med 01/16/24 21:00 Active 1 mg PO BID Folic Acid Inj Med 01/16/24 19:19 Discontinued 1 mg IVP X1 ONE LORazepam [Ativan Inj] Med 01/16/24 20:56 Active 1 mg IV X1 PRN LORazepam [Ativan Inj] Med 01/16/24 19:16 Discontinued 2 mg IVP X1 ONE LORazepam [Ativan] Med 01/16/24 20:56 Active 0.5 mg PO Q4HR PRN LORazepam [Ativan] Med 01/16/24 20:56 Active 1 mg PO Q4HR PRN LORazepam [Ativan] Med 01/16/24 20:56 Active 2 mg PO Q4HR PRN Pantoprazole Inj [Protonix Inj] Med 01/17/24 09:00 Active 40 mg IVP QDAY Sodium Chloride 0.9% 1000 ml [Ns] 1,000 ml Med 01/16/24 19:45 Discontinued Multivitamin Inj [Infuvite Inj] 10 ml IV 999 mls/hr Thiamine Inj [Vitamin B-1 Inj] Med 01/16/24 20:56 Discontinued 100 mg IM STAT STA Thiamine [Vitamin B-1] Med 01/16/24 21:00 Active 100 mg PO BID Vital Signs Vital signs: Vital Signs Temperature 98.9 F 01/16/24 17:44 Pulse Rate 73 01/16/24 17:44 Respiratory Rate 16 01/16/24 17:44 Blood Pressure 124/74 01/16/24 17:44 Pulse Oximetry (%) 93 L 01/16/24 17:44 Oxygen Delivery Method Room Air 01/16/24 17:44 Shortness of Breath / Dyspnea Patient data External records reviewed:: [facility] previous records (Per chart review, patient was seen here on 01/03/24 for alcohol abuse.) Clinical information provided by:: patient Social determinants that could affect healthcare access:: alcohol use (history of) Patient has the following chronic illnesses:: seizures, cirrhosis, anxiety, depression How is presenting disease/condition affected by chronic disease/condition?: uneffected by Evaluation data The following diagnostics were reviewed and interpreted by me:: lab results Lab and/or radiology exams considered but not ordered:: none Interpretation Summary: CBC is normal, LFTs are elevated, CK is normal, UA is unremarkable, UDS is negative, urine alcohol is positive, according to my interpretation. Medications / Prescriptions Medications or Prescriptions considered but not ordered:: none Medication administrations:: Medication Administration History Folic Acid (Folic Acid 1 Mg Tablet) 1 mg PO BID [facility] Stop: 01/21/24 20:59 Last Admin: 01/16/24 22:08 Dose: Not Given Documented By: DB Non-Admin Reason: Cancelled by Provider Heparin Sodium (Porcine) (Heparin Sod Inj 5000 Unit/Ml Vial) 5,000 unit SC Q8HR [facility] Stop: 01/30/24 21:59 Last Admin: 12/10/24 05:33 Dose: 5,000 unit Documented By: JILLIAN Co-signed By: ROMELIA Admin: 01/16/24 22:04 Dose: 5,000 unit Documented By: DIEGO Co-signed By: KAHLIL Dextrose/Sodium Chloride (D5-Ns) 1,000 mls @ 100 mls/hr IV .Q10H ONE Stop: 01/17/24 06:59 Last Admin: 01/16/24 22:56 Dose: 100 mls/hr Documented By: KAHLIL Lorazepam (Lorazepam 0.5 Mg Tablet) 0.5 mg PO Q4HR PRN PRN Reason: CIWA Score 2-6 Stop: 01/21/24 20:55 Last Admin: 01/17/24 00:29 Dose: 0.5 mg Documented By: JILLIAN Comments: Ciwa score 5 Lorazepam (Lorazepam 0.5 Mg Tablet) 1 mg PO Q4HR PRN PRN Reason: CIWA SCORE 7-11 Stop: 01/21/24 20:55 Lorazepam (Lorazepam 0.5 Mg Tablet) 2 mg PO Q4HR PRN PRN Reason: CIWA SCORE 12-15 Stop: 01/21/24 20:55 Lorazepam (Lorazepam 2 Mg/Ml Vial) 1 mg IV X1 PRN PRN Reason: Breakthrough Agitation Ondansetron HCl (Ondansetron Inj 2 Mg/Ml Inj 2 Ml) 4 mg IV Q6H PRN; Protocol PRN Reason: NAUSEA OR VOMITING Stop: 02/15/24 21:14 Pantoprazole Sodium (Pantoprazole Inj 40 Mg Vial) 40 mg IVP QDAY [facility] Stop: 02/16/24 08:59 Thiamine HCl (Thiamine 100 Mg Tablet) 100 mg PO BID [facility] Stop: 01/21/24 20:59 Last Admin: 01/16/24 22:08 Dose: Not Given Documented By: DIEGO Non-Admin Reason: Cancelled by Provider Discontinued Medications Folic Acid (Folic Acid Inj 1 Mg/0.2 Ml) 1 mg IVP X1 ONE Stop: 01/16/24 19:20 Last Admin: 01/16/24 19:57 Dose: 1 mg Documented By: KAHLIL Multivitamins/Minerals 10 ml/ (Sodium Chloride) 1,010 mls @ 999 mls/hr IV .Q1H1M ONE Stop: 01/16/24 20:45 Last Infusion: 01/16/24 22:31 Dose: Infused Documented By: Admin: 01/16/24 19:58 Dose: 999 mls/hr Documented By: CCT Lorazepam (Lorazepam 2 Mg/Ml Vial) 2 mg IVP X1 ONE Stop: 01/16/24 19:17 Last Admin: 01/16/24 19:39 Dose: 2 mg Documented By: CCT Thiamine HCl (Thiamine Inj 100 Mg/Ml Vial 2 Ml) 100 mg IM STAT STA Stop: 01/16/24 20:57 Last Admin: 01/16/24 22:04 Dose: 100 mg Documented By: DB see above, if any Consultations Consultation(s) initiated? (list below): Yes Consultation #1 (Physician, Specialty, Details): Discussed case with [Dr. Stallings] from Hospitalist service regarding admission. Discussed patients ED course, exam findings, labs, and radiology results. The Hospitalist [agrees] to accept the patient for admission. Requests a CT scan of the head. Time: 20:50 Diagnosis Shortness of Breath Differential Diagnosis: other (alcohol withdrawal, seizure, electrolyte abnormality, seizure disorder, infection) Most likely diagnosis given after review of the tests above:: see below Admission Indicated Admission indicated?: indicated Admission Request Was there a request for admission?: Yes Admission Attestation Admission request attestation: Discussed case with [] from Hospitalist service regarding admission. Discussed patients ED course, exam findings, labs, and radiology results. The Hospitalist [agrees,declines] to accept the patient for admission. Disposition Plan Disposition Plan: Admit Critical Care Time Critical Care Time Critical Care Time: Yes Total Critical Care Time (min.): 35 Attestation: The high probability of sudden, clinically significant deterioration in the patient?s condition required the highest level of my preparedness to intervene urgently. The services I provided to this patient were to treat and/or prevent clinically significant deterioration. Services included the following: chart data review, reviewing nursing notes and/or old charts, documentation time, network relations consultant collaboration regarding findings and treatment options, medication orders and management, direct patient care, vital sign assessments and ordering, interpreting and reviewing diagnostic studies and lab tests. Aggregate critical care time includes only time during which I was engaged in work directly related to the patient?s care, as described above, whether at bedside or elsewhere in the Emergency Department. It did not include time spent performing other reported procedures or the services of residents, students, nurses or physician assistants. Discharge Plan Plan Patient Disposition: Admit Acute Care w/in Hospital Patient condition on transfer: Stable Problem List Clinical Impression: Alcohol withdrawal, Alcohol abuse, Alcohol withdrawal seizure
[2024-01-16 19:38] LABS: Basophils # (Auto) 0.1 Thou/mm3 (0.0-0.2); Basophils % (Auto) 2 % (0-2.5); Eosinophils # (Auto) 0.1 Thou/mm3 (0.0-0.5); Eosinophils % (Auto) 1 % (0-10); Hematocrit 41.1 % (41.0-53.0); Hemoglobin 14.4 g/dL (13.5-16.0); Immature Granulocytes % (Auto) 0 % (0-0); Immature Granulocytes Auto 0.01 Thou/mm3 (0.00-0.00); Lymphocytes # (Auto) 1.7 Thou/mm3 (1.0-4.8); Lymphocytes % (Auto) 33 % (10-50); Mean Corpuscular Hemoglobin 35.3 pg (25.0-35.0); Mean Corpuscular Volume 101 fL (80-100); Monocytes # (Auto) 0.4 Thou/mm3 (0.0-0.8); Monocytes % (Auto) 7 % (0-12); Neutrophils # (Auto) 2.9 Thou/mm3 (1.8-7.7); Neutrophils % (Auto) 56 % (37-80); Nucleated Red Blood Cell % 0 /100 WBC (0); Platelet Count 196 Thou/mm3 (140-440); RDW Standard Deviation 49.7 fL (35.1-43.9); Red Blood Count 4.08 Miln/mm3 (4.50-5.90); White Blood Count 5.2 Thou/mm3 (3.8-10.6)
[2024-01-16] MEDS: LORazepam 2 MG/ML VIAL IVP (19:39)
[2024-01-16 19:57] LABS: Alanine Aminotransferase 78 U/L (10-49); Albumin, Serum 5.2 gm/dL (3.5-5.0); Albumin/Globulin Ratio 1.6 (1.2-2.2); Alkaline Phosphatase 220 U/L (46-116); Anion Gap 14 (7-16); Aspartate Amino Transferase 201 U/L (0-34); BUN/Creatinine Ratio 9 Ratio (12-20); Bilirubin,Total 0.4 mg/dL (0.3-1.2); Blood Urea Nitrogen 7 mg/dL (9-23); Carbon Dioxide 25.3 mMol/L (20.0-31.0); Chloride 102 mMol/L (98-107); Creatine Kinase 144 U/L (34-171); Creatinine (Component) 0.8 mg/dL (0.6-1.3); Estimated Creatinine Clearance 112.6 mL/min (>60); Globulin 3.3 gm/dL (2.3-3.5); Glucose 89 mg/dL (74-106); Osmolality,Calculated 278 (275-295); Potassium 3.8 mMol/L (3.4-5.1); Sodium 141 mMol/L (136-145); Total Protein 8.5 gm/dL (5.7-8.2); eGFR > 60 See Note
[2024-01-16] MEDS: FOLIC ACID INJ 1 MG/0.2 ML IVP (19:57)
[2024-01-16] MEDS: MULTIVITAMIN INJ 10 ML in SODIUM CHLORIDE 0.9% 1000 ML 1,000 ML 999 ML IV (19:58)
[2024-01-16 19:59] LABS: Collection Type, Urine Voided; Squamous Epithelial Cell,Urine 0 /hpf (0-5)
[2024-01-16 20:00] VITALS: BP 130/91; PULSE 72; RESP 20; TEMP 36.8; O2SAT 95
[2024-01-16 20:11] LABS: Bilirubin,Urine Negative (Negative); Blood,Urine Negative (Negative); Clarity,Urine Clear (Clear/Hazy); Color,Urine Colorless (Lt Yel-Yel); Glucose, Urine Negative (Negative); Ketones,Urine Negative (Negative); Leukocyte Esterase,Urine Negative (Negative); Nitrite,Urine Negative (Negative); PH,Urine 6.5 (5.0-7.0); Protein,Urine Negative (Neg - Trace); RBC,Urine 1 /hpf (0-3); Specific Gravity,Urine 1.004 (1.001-1.035); Urobilinogen,Urine Negative mg/dL (0.0-1.0); WBC,Urine < 1 /hpf (0-5)
[2024-01-16 20:16] LABS: Amphetamine/Methamp Scrn,U Negative (Negative); Barbiturate Screen,Urine Negative (Negative); Benzodiazepines Screen,Urine Negative (Negative); Benzoylecgonine Screen, Ur Negative (Negative); Fentanyl Screen,Urine Negative (Negative); Opiate Screen,Urine Negative (Negative); THC Screen,Urine Negative (Negative)
[2024-01-16 20:31] LABS: Alcohol, Urine Positive (Negative)
--- NOTE | 2024-01-16 20:50 | XR_ITS ---
Examination: CT brain head without contrast. 2-D sagittal coronal reconstructions Date and time of exam:January 16, 2024 at 2103 hrs. Indications: Onset seizure today, alcohol withdrawal Comparison: January 03, 2024 CTDI: vol (mGy):48.3 DLP: (mGycm):1026 Technique: Multiple CT axial sections of the brain have been obtained, 5 mm slice thickness. Contrast has not been administered. 2-D sagittal, coronal reconstructions have been obtained Low dose protocols were performed. One or more of the following dose reduction techniques were used; automated exposure control, adjustment of the mA and/or KV according to patient size, use of iterative reconstruction technique. Findings: No significant ventricular enlargement. Intra-axial or extra-axial hemorrhage density is not seen. No mass effect or midline shift Basal cisterns are not remarkable. Fourth ventricle is midline. Cranial vault intact. Impression: Negative for acute hemorrhage, mass effect or midline shift Advise clinical correlation follow-up accordingly
--- NOTE | 2024-01-16 20:53 | XR_ITS ---
Examination: AP chest single view Technique: AP portable upright chest single view Exam date and time: January 16, 2024 2115 hrs. Indications: Admission chest x-ray Findings: Normal heart size No pneumonia or pulmonary edema Intact osseous structures Impression: No pneumonia or pulmonary edema
--- NOTE | 2024-01-16 20:57 | PC.NURSE ---
Pt taken to CT via [facility]
[2024-01-16 21:17] LABS: Magnesium 2.2 mg/dL (1.6-2.6); Phosphorous 4.1 mg/dL (2.4-5.1)
[2024-01-16 21:24] LABS: Alcohol, Blood Medical 367.1 mg/dL (0-10.0)
[2024-01-16] MEDS: HEPARIN SOD INJ 5000 UNIT/ML VIAL SC (22:04)
[2024-01-16] MEDS: THIAMINE INJ 100 MG/ML VIAL 2 ML IM (22:04)
--- NOTE | 2024-01-16 22:08 | ESHP_ITS ---
Documentation for date of: 01/16/24 HPI History of Present Illness History of present illness: The patient is a 28-year-old male with a significant past medical history of alcohol use disorder and withdrawal seizures, recently diagnosed with liver cirrhosis who was Biba to the ED on 01/16/2024 with generalized body pain of 1 week duration and alcohol withdrawals. Per patient, he symptoms started about a week ago, associated with generalized weakness. He states that he stopped drinking for about a month until yesterday when he had 3 beers and hard liquor at a [employer]. Per chart review, patient was discharged a month ago after being admitted for alcohol withdrawal, he also presented to the ED 2 weeks ago and at that time admitted to drinking whiskey and beer, was drinking at the time. He states his last drink was yesterday morning. Patient endorses abdominal pain and 2 episodes of vomiting, with a second containing some amount of blood. He has been having regular bowel movements, no constipation or diarrhea, denies fever but endorses chills. He also endorses shakiness, auditory and visual hallucinations that started about a day ago. He does not currently state he wants to stop drinking and needs help. Patient was scheduled to [facility] in [facility] but has been unable to assess as he could not arrange transport to get him over there. ED course: In the ED, patient was afebrile and normotensive, saturating 95% on room air. Labs showed WBC 5.2 Hgb 14.4 PLT 196 BUN 7 CR 0.8 glucose 89 T. bili was normal AST 211 ALT 78 ALP 220 UA was negative and U tox was positive for alcohol level of 367. Head CT was negative. Patient received IV Ativan 2 mg, folic acid, thiamine, and has been admitted for management of alcohol withdrawals. Review of Systems Review of Systems Narrative Review of Systems: GENERAL: Admits fevers, denies diaphoresis HEENT: Denies headache or visual/hearing changes. Denies nasal discharge. NEURO: Denies unusual weakness or difficulty speaking. CARDIO: Denies chest pain or palpitations. PULM: Denies SOB, coughing, or wheezing. GI: Admits abdominal pain, nausea and vomiting, hematemesis. Reports having bowel movements URO: Denies burning/itching/pain/urinary changes. MSK/EXT/SKIN: Admits generalized body pain PSYCH: Endorses auditory and visual hallucinations admits to generalized body pain Exam Vital Signs Temp Pulse Resp BP Pulse Ox O2 Del Method 98.3 F 72 20 130/91 H 95 Room Air 01/16/24 20:00 01/16/24 20:00 01/16/24 20:00 01/16/24 20:00 01/16/24 20:00 01/16/24 20:00 Narrative Exam GENERAL: AAOX3. NEURO: GEOCHEMICAL LABORATORY TECHNICIAN grossly intact, moves extremities x4. HEENT: Dry mucosa, tongue fasciculations. Eyes open, symmetrical, & clear. CARDIO: No chest pain on palpation. Heart RRR, no obvious murmurs. PULM: No noted coughing/dyspnea. Lungs CTA B/L. GI: Abdomen soft, nondistended, no pain on palpation. BSx4. URO/RECLAMATION WORKER:: No further abnormalities noted. SKIN/MSK/EXT: Slight tremors on extension of bilateral upper extremities. Results: Labs 01/17/24 04:47 01/17/24 04:47 Labs: Short CBC 01/16/24 Range/Units 19:26 WBC 5.2 (3.8-10.6) Thou/mm3 Hgb 14.4 (13.5-16.0) g/dL Hct 41.1 (41.0-53.0) % Plt Count 196 (140-440) Thou/mm3 BMP 01/16/24 19:26 Sodium 141 Potassium 3.8 Chloride 102 Carbon Dioxide 25.3 BUN 7 L Creatinine 0.8 Glucose 89 Calcium 9.0 Cardiac Enzymes 01/16/24 Range/Units 19:26 Total Creatine Kinase 144 (34-171) U/L Liver Function 01/16/24 Range/Units 19:26 Total Bilirubin 0.4 (0.3-1.2) mg/dL AST 201 H (0-34) U/L ALT 78 H (10-49) U/L Alkaline Phosphatase 220 H (46-116) U/L Albumin 5.2 H (3.5-5.0) gm/dL Urine 01/16/24 Range/Units 19:50 Urine Color Colorless A (Lt Yel-Yel) Urine Clarity Clear (Clear/Hazy) Urine pH 6.5 (5.0-7.0) Ur Specific [place] 1.004 (1.001-1.035) Urine Protein Negative (Neg - Trace) Urine Glucose (UA) Negative (Negative) Quality Measures Quality Measures none Medications Home Medications and Allergies Allergies Allergy/AdvReac Type Severity Reaction Status Date / Time No Known Allergies Allergy Verified 01/03/24 17:13 Visit Medications Folic Acid (Folic Acid 1 Mg Tablet) 1 mg PO BID [facility] Stop: 01/21/24 20:59 Last Admin: 01/16/24 22:08 Dose: Not Given Heparin Sodium (Porcine) (Heparin Sod Inj 5000 Unit/Ml Vial) 5,000 unit SC Q8HR [facility] Stop: 01/30/24 21:59 Last Admin: 01/16/24 22:04 Dose: 5,000 unit Dextrose/Sodium Chloride (D5-Ns) 1,000 mls @ 100 mls/hr IV .Q10H ONE Stop: 01/17/24 06:59 Lorazepam (Lorazepam 0.5 Mg Tablet) 0.5 mg PO Q4HR PRN PRN Reason: CIWA Score 2-6 Stop: 01/21/24 20:55 Lorazepam (Lorazepam 0.5 Mg Tablet) 1 mg PO Q4HR PRN PRN Reason: CIWA SCORE 7-11 Stop: 01/21/24 20:55 Lorazepam (Lorazepam 0.5 Mg Tablet) 2 mg PO Q4HR PRN PRN Reason: CIWA SCORE 12-15 Stop: 01/21/24 20:55 Lorazepam (Lorazepam 2 Mg/Ml Vial) 1 mg IV X1 PRN PRN Reason: Breakthrough Agitation Ondansetron HCl (Ondansetron Inj 2 Mg/Ml Inj 2 Ml) 4 mg IV Q6H PRN; Protocol PRN Reason: NAUSEA OR VOMITING Stop: 02/15/24 21:14 Pantoprazole Sodium (Pantoprazole Inj 40 Mg Vial) 40 mg IVP QDAY [facility] Stop: 02/16/24 08:59 Thiamine HCl (Thiamine 100 Mg Tablet) 100 mg PO BID [facility] Stop: 01/21/24 20:59 Last Admin: 01/16/24 22:08 Dose: Not Given Discontinued Medications Folic Acid (Folic Acid Inj 1 Mg/0.2 Ml) 1 mg IVP X1 ONE Stop: 01/16/24 19:20 Last Admin: 01/16/24 19:57 Dose: 1 mg Multivitamins/Minerals 10 ml/ (Sodium Chloride) 1,010 mls @ 999 mls/hr IV .Q1H1M ONE Stop: 01/16/24 20:45 Last Admin: 01/16/24 19:58 Dose: 999 mls/hr Lorazepam (Lorazepam 2 Mg/Ml Vial) 2 mg IVP X1 ONE Stop: 01/16/24 19:17 Last Admin: 01/16/24 19:39 Dose: 2 mg Thiamine HCl (Thiamine Inj 100 Mg/Ml Vial 2 Ml) 100 mg IM STAT [facility] Stop: 01/16/24 20:57 Last Admin: 01/16/24 22:04 Dose: 100 mg Assessment & Plan Assessment Summary: The patient is a 28-year-old male with significant past medical history of alcohol use disorder and withdrawal seizures, recently diagnosed with liver cirrhosis was Biba to the ED on 01/27/2024 with generalized body pain of 1 week duration and alcohol withdrawals. #Alcohol withdrawal #Recently diagnosed cirrhosis and hepatomegaly #Hyperbilirubinemia #Transaminitis The patient has a history of chronic alcohol use and withdrawal seizures. He reports that he stopped drinking for about a month until yesterday when he had 3 beers and hard liquor at a [employer]. Note that per chart review, patient was in the ED about 2 weeks ago and at the time reported that he was still drinking but try to stop. He endorsed abdominal pain, nausea and vomiting with some bloody emesis. Patient endorsed visual and auditory hallucinations. Labs are significant for hyperbilirubinemia, transaminitis. Previous CT abdomen pelvis done 2 weeks ago showed mildly irregular liver, suspect primary hepatocellular disease. CIWA on admission-5 The patient received IV Ativan, thiamine and folic acid in the ED. Plan: -Admit to med telemetry -CIWA protocol -Thiamine 100 mg twice daily -Folic acid -Seizure precautions -Zofran for nausea and vomiting as needed -Referral to director of social work #Hematemesis #Macrocytic hyperchromic anemia CBC showed MCV of 101 and MCH 35.3. However, Hgb is normal Probably secondary to chronic alcohol consumption. Patient reported that he had some blood in his vomit. Plan: -B12 levels Health maintenance: Dispo: MedTele Diet: Regular diet GI: Pantoprazole DVT: SC Heparin Hirsch: None Lines: Peripheral Med Rec: Pending, f/u PT: Not ordered Code:Full Case was discussed with attending physician, Dr Chandrakant Moore MD PGY-1 Plan Pt was evaluated and plan formulated together with the housestaff team. I have reviewed the residents note above and agree with most of its content. Please refer to the residents note for additional details. Watch for DT.
[2024-01-16] MEDS: DEXTROSE 5%-NS 1,000 ML 100 ML IV (22:56)
[2024-01-16 22:57] VITALS: BP 107/59; PULSE 83; RESP 16; TEMP 37; O2SAT 94
[2024-01-17] VITALS (10 sets, daily range): BP systolic 93–122; BP diastolic 54–74; PULSE 62–94; RESP 16–18; TEMP 36.1–37.6; O2SAT 93–96; BMI 23.1
[2024-01-17] MEDS: LORazepam 0.5 MG TABLET PO ×3 (00:29→22:45)
[2024-01-17 00:41] LABS: Hematocrit 36.1 % (41.0-53.0); Hemoglobin 12.5 g/dL (13.5-16.0); Lactate (Lactic Acid) 2.1 mMol/L (0.4-2.0)
[2024-01-17 01:29] LABS: Vitamin B12 586 pg/mL (211-911)
[2024-01-17 03:38] LABS: Reflex Lactate? Y
--- NOTE | 2024-01-17 03:55 | PC.NURSE ---
lab will come right now to draw pt for lactic acid and send blood to lab.
[2024-01-17 05:02] LABS: Lactic Acid, 3 HR 1.2 mMol/L (0.4-2.0)
[2024-01-17 05:07] LABS: Basophils % (Auto) 1 % (0-2.5); Eosinophils # (Auto) 0.1 Thou/mm3 (0.0-0.5); Eosinophils % (Auto) 2 % (0-10); Hematocrit 34.5 % (41.0-53.0); Immature Granulocytes % (Auto) 0 % (0-0); Immature Granulocytes Auto 0.01 Thou/mm3 (0.00-0.00); Lymphocytes # (Auto) 0.9 Thou/mm3 (1.0-4.8); Lymphocytes % (Auto) 22 % (10-50); Mean Corpuscular HGB Conc 34.8 g/dl (31.0-37.0); Mean Corpuscular Hemoglobin 35.5 pg (25.0-35.0); Mean Corpuscular Volume 102 fL (80-100); Monocytes # (Auto) 0.4 Thou/mm3 (0.0-0.8); Monocytes % (Auto) 11 % (0-12); Neutrophils # (Auto) 2.7 Thou/mm3 (1.8-7.7); Neutrophils % (Auto) 64 % (37-80); Nucleated Red Blood Cell % 0 /100 WBC (0); Platelet Count 123 Thou/mm3 (140-440); RDW Standard Deviation 50.4 fL (35.1-43.9); Red Blood Count 3.38 Miln/mm3 (4.50-5.90); White Blood Count 4.2 Thou/mm3 (3.8-10.6)
[2024-01-17 05:28] LABS: Anion Gap 9 (7-16); BUN/Creatinine Ratio 7 Ratio (12-20); Blood Urea Nitrogen < 5 mg/dL (9-23); Calcium 8.4 mg/dL (8.3-10.6); Chloride 103 mMol/L (98-107); Creatinine (Component) 0.7 mg/dL (0.6-1.3); Estimated Creatinine Clearance 128.7 mL/min (>60); Glucose 84 mg/dL (74-106); Magnesium 1.8 mg/dL (1.6-2.6); Osmolality,Calculated 271 (275-295); Potassium 3.7 mMol/L (3.4-5.1); Sodium 138 mMol/L (136-145); eGFR > 60 See Note
--- NOTE | 2024-01-17 05:31 | PC.NURSE ---
PLT 126, okay to give heparin per DR. Montez.
[2024-01-17] MEDS: HEPARIN SOD INJ 5000 UNIT/ML VIAL SC ×2 (05:33→13:18)
[2024-01-17] MEDS: LORazepam 0.5 MG TABLET 2 MG PO (07:39)
[2024-01-17] MEDS: ONDANSETRON INJ 2 MG/ML INJ 2 ML 4 MG IV (07:40)
[2024-01-17] MEDS: LORazepam 2 MG/ML VIAL IVP (08:41)
[2024-01-17] MEDS: FOLIC ACID 1 MG TABLET PO ×2 (08:59→20:53)
[2024-01-17] MEDS: THIAMINE 100 MG TABLET PO ×2 (08:59→20:53)
[2024-01-17] MEDS: PANTOPRAZOLE INJ 40 MG VIAL IVP (08:59)
[2024-01-17] MEDS: LORazepam 0.5 MG TABLET 1 MG PO ×2 (12:46→16:29)
[2024-01-17] MEDS: chlordiazePOXIDE HCl 25 MG CAPSULE PO ×2 (13:18→21:00)
--- NOTE | 2024-01-17 16:43 | ESPR_ITS ---
<Statement entered by Eun Rivera MD - 01/18/24 07:55> Patient was seen and examined by me personally. I agree with most of the assessment and plan as discussed with the internet marketing intern physician, and my attending, Dr. Reza. Remains on CIWA protocol, required additional dose of ativan. CIWA score 11-12. Will add scheduled librium in addition to symptom triggered management. Eun Rivera MD, PGY-3 Documentation for date of: 01/17/24 Subjective Subjective Interval history: Patient was seen and examined bedside. This morning around 8 AM, got a call from the nurse saying the patient is agitated despite giving oral lorazepam so a single dose of IV lorazepam 2 Mg is given. When reevaluated later, patient is lying comfortably in the bed and sleeping. After waking up, claimed that all of his body is aching. Otherwise, no other complaints. When asked about the last alcohol drink, patient stated that he does not remember. Exam Vital Signs Temp Pulse Resp BP Pulse Ox O2 Del Method 98.2 F 79 18 122/69 95 Room Air 01/17/24 15:50 01/17/24 15:50 01/17/24 15:50 01/17/24 15:50 01/17/24 15:50 01/17/24 15:50 Narrative Exam General: Awake. HEENT: Normocephalic, atraumatic, mucous membranes moist. Heart: Regular rate and rhythm, no murmurs. Lungs: Clear to auscultation with no wheezing or crackles. Abdomen: Soft, nondistended, nontender, positive bowel sounds. ?No guarding or rebound tenderness. Neurologic: Alert and oriented x3, no gross neurological deficit, and patient able to move all 4 extremities. Extremities: No edema. Skin: No rash or ecchymoses. Objective Labs 01/18/24 04:25 01/18/24 04:25 Labs: Laboratory Results - last 24 hr 01/16/24 01/16/24 01/17/24 19:26 19:50 00:06 WBC 5.2 RBC 4.08 L Hgb 14.4 12.5 L Hct 41.1 36.1 L MCV 101 H MCH 35.3 H MCHC 35.0 RDW Std Deviation 49.7 H Plt Count 196 Neut % (Auto) 56 Lymph % (Auto) 33 [place] % (Auto) 7 Eos % (Auto) 1 Baso % (Auto) 2 Neut # (Auto) 2.9 Lymph # (Auto) 1.7 [place] # (Auto) 0.4 Eos # (Auto) 0.1 Baso # (Auto) 0.1 Immature Gran # (Auto) 0.01 H Absolute Nucleated RBC 0.00 Immature Gran % 0 Nucleated RBC % 0 Sodium 141 Potassium 3.8 Chloride 102 Carbon Dioxide 25.3 Anion Gap 14 BUN 7 L Creatinine 0.8 Estim Creat Clear Calc 112.6 eGFR > 60 BUN/Creatinine Ratio 9 L Glucose 89 Calculated Osmolality 278 Lactic Acid 2.1 H Calcium 9.0 Corrected Calcium 9.0 Phosphorus 4.1 Magnesium 2.2 Total Bilirubin 0.4 AST 201 H ALT 78 H Alkaline Phosphatase 220 H Total Creatine Kinase 144 Total Protein 8.5 H Albumin 5.2 H Globulin 3.3 Albumin/Globulin Ratio 1.6 Vitamin B12 586 Ur Collection Type Voided Urine Color Colorless A Urine Clarity Clear Urine pH 6.5 Ur Specific [place] 1.004 Urine Protein Negative Urine Glucose (UA) Negative Urine Ketones Negative Urine Blood Negative Urine Nitrite Negative Urine Bilirubin Negative Urine Urobilinogen (Auto) Negative Ur Leukocyte Esterase Negative Urine RBC 1 Urine WBC < 1 Ur Squamous Epith Cells 0 Urine Bacteria None Urine Opiates Screen Negative Urine Fentanyl Screen Negative Ur Barbiturates Screen Negative U Amphetamin/Meth Scrn Negative U Benzodiazepines Scrn Negative U Cocaine Metab Screen Negative U Marijuana (THC) Screen Negative Urine Alcohol Positive A Ethyl Alcohol 367.1 H 01/17/24 04:47 WBC 4.2 RBC 3.38 L Hgb 12.0 L Hct 34.5 L MCV 102 H MCH 35.5 H MCHC 34.8 RDW Std Deviation 50.4 H Plt Count 123 L D Neut % (Auto) 64 Lymph % (Auto) 22 [place] % (Auto) 11 Eos % (Auto) 2 Baso % (Auto) 1 Neut # (Auto) 2.7 Lymph # (Auto) 0.9 L [place] # (Auto) 0.4 Eos # (Auto) 0.1 Baso # (Auto) 0.0 Immature Gran # (Auto) 0.01 H Absolute Nucleated RBC 0.00 Immature Gran % 0 Nucleated RBC % 0 Sodium 138 Potassium 3.7 Chloride 103 Carbon Dioxide 26.0 Anion Gap 9 BUN < 5 L Creatinine 0.7 Estim Creat Clear Calc 128.7 eGFR > 60 BUN/Creatinine Ratio 7 L Glucose 84 Calculated Osmolality 271 L Lactic Acid 1.2 Calcium 8.4 Corrected Calcium Phosphorus 4.0 Magnesium 1.8 Total Bilirubin AST ALT Alkaline Phosphatase Total Creatine Kinase Total Protein Albumin Globulin Albumin/Globulin Ratio Vitamin B12 Ur Collection Type Urine Color Urine Clarity Urine pH Ur Specific [place] Urine Protein Urine Glucose (UA) Urine Ketones Urine Blood Urine Nitrite Urine Bilirubin Urine Urobilinogen (Auto) Ur Leukocyte Esterase Urine RBC Urine WBC Ur Squamous Epith Cells Urine Bacteria Urine Opiates Screen Urine Fentanyl Screen Ur Barbiturates Screen U Amphetamin/Meth Scrn U Benzodiazepines Scrn U Cocaine Metab Screen U Marijuana (THC) Screen Urine Alcohol Ethyl Alcohol Quality Measures Quality Measures none Assessment & Plan Assessment Current Active Medications: Generic Name Dose Route Start Last Admin Trade Name Freq PRN Reason Stop Dose Admin Chlordiazepoxide HCl 25 mg 01/17/24 14:00 01/17/24 13:18 Chlordiazepoxide Hcl 25 Mg Capsule PO 01/22/24 13:59 25 mg Q8HR APOORVA Administration Folic Acid 1 mg 01/16/24 21:00 01/17/24 08:59 Folic Acid 1 Mg Tablet PO 01/21/24 20:59 1 mg BID APOORVA Administration Heparin Sodium (Porcine) 5,000 unit 01/16/24 22:00 01/17/24 13:18 Heparin Sod Inj 5000 Unit/Ml Vial SC 01/30/24 21:59 5,000 unit Q8HR APOORVA Administration Lorazepam 0.5 mg 01/16/24 20:56 01/17/24 00:29 Lorazepam 0.5 Mg Tablet PO 01/21/24 20:55 0.5 mg Q4HR PRN Administration CIWA Score 2-6 Lorazepam 1 mg 01/16/24 20:56 01/17/24 16:29 Lorazepam 0.5 Mg Tablet PO 01/21/24 20:55 1 mg Q4HR PRN Administration CIWA SCORE 7-11 Lorazepam 2 mg 01/16/24 20:56 01/17/24 07:39 Lorazepam 0.5 Mg Tablet PO 01/21/24 20:55 2 mg Q4HR PRN Administration CIWA SCORE 12-15 Lorazepam 1 mg 01/16/24 20:56 Lorazepam 2 Mg/Ml Vial IV X1 PRN Breakthrough Agitation Ondansetron HCl 4 mg 01/16/24 21:15 01/17/24 07:40 Ondansetron Inj 2 Mg/Ml Inj 2 Ml IV 02/15/24 21:14 4 mg Q6H PRN Administration NAUSEA OR VOMITING Protocol Pantoprazole Sodium 40 mg 01/17/24 09:00 01/17/24 08:59 Pantoprazole Inj 40 Mg Vial IVP 02/16/24 08:59 40 mg QDAY APOORVA Administration Thiamine HCl 100 mg 01/16/24 21:00 01/17/24 08:59 Thiamine 100 Mg Tablet PO 01/21/24 20:59 100 mg BID APOORVA Administration Plan The patient is a 28-year-old male with significant past medical history of alcohol use disorder and withdrawal seizures, recently diagnosed with liver cirrhosis was Biba to the ED on 01/27/2024 with generalized body pain of 1 week duration and alcohol withdrawals. # Alcohol intoxication # Alcohol withdrawal # Recently diagnosed with alcoholic liver disease # Transaminitis -Patient was recently admitted in hospital for chronic alcohol abuse and withdrawal seizures. -Admitted with abdominal pain, nausea, vomiting -Also complained of visual and auditory hallucination in the ED -Labs are significant for elevated AST and ALT with ratio > 2: 1 suggesting alcohol liver disease -Urine toxicology is positive for alcohol. Ethyl alcohol level is 367.1 Mg/dl -CIWA score at the time of admission is 5, as of 01/17/2024 is 17 -Patient received at 1, thiamine and folate in the ED. Plan -Admitted to [facility] telemetry -Started on CIWA protocol and continuously monitoring CIWA score -Started on chlordiazepoxide 25 Mg 3 times daily. -Counseled on alcohol cessation -Seizure precautions. -Zofran as needed for nausea and vomitings # Macrocytic anemia Likely due to alcohol -Hemoglobin is 12.5 at the time of admission -MCV is 102, B12 levels as of 01/17/2024 is within normal limits -Folate is within normal limits as of 10/31/2023 Plan -Will continue to monitor CBC # Mild thrombocytopenia Likely due to alcoholic liver disease -Platelet count is normal at the time of admission -As of 01/17/2024, platelet count is 123 Plan Will continue to monitor CBC and look for any bleeding tendencies Health maintenance: Dispo: MedTele Diet: Regular diet GI: Pantoprazole DVT: SC Heparin Hirsch: None Lines: Peripheral Code:Full Patient plan of care was discussed with the attending physician, Dr. Reza and senior resident Dr. Nicole Varner, PGY1 Attending Provider Attestation/Addendum I reviewed labs, imaging, EKG, home medications and prior available records. Face to face evaluation was performed by me. I have personally examined the patient and discussed assessment and plan with the IM team. I reviewed the resident note and agree with the plan with exceptions as below. Alcohol withdrawal: Complicated with seizure-like activity. Started the patient on Librium. Continue CIWA protocol. Continue thiamine and folic acid. Transaminitis: With AST more than ALT. In the setting of alcohol abuse. Management as above. Trend LFTs. Thrombocytopenia: In the setting of liver disease. No signs of bleeding. Monitor platelet level.
--- NOTE | 2024-01-17 17:26 | PC.NURSE ---
Addendum entered by Cecile Izaguirre RN 01/17/24 17:40: wrong patient Original Note: I have been answering questions and assisting patient continuosly through my shift. 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 I explained to her their is a referral with wound care and she will receive all information during her discharge. I gave her all results on her labs from today. I also had to explain to her I have 4 other patients under my care. Will continue to monitor patient.
[2024-01-17] MEDS: hydrOXYzine HCL 25 MG TABLET PO (22:45)
[2024-01-18] VITALS (11 sets, daily range): BP systolic 105–130; BP diastolic 73–87; PULSE 74–111; RESP 16–20; TEMP 36.1–37.9; O2SAT 94–96
[2024-01-18] MEDS: LORazepam 0.5 MG TABLET 1 MG PO ×4 (04:25→20:38)
[2024-01-18 05:47] LABS: Basophils % (Auto) 1 % (0-2.5); Eosinophils # (Auto) 0.1 Thou/mm3 (0.0-0.5); Eosinophils % (Auto) 1 % (0-10); Hemoglobin 13.1 g/dL (13.5-16.0); Immature Granulocytes % (Auto) 0 % (0-0); Immature Granulocytes Auto 0.03 Thou/mm3 (0.00-0.00); Lymphocytes # (Auto) 0.9 Thou/mm3 (1.0-4.8); Lymphocytes % (Auto) 12 % (10-50); Mean Corpuscular HGB Conc 35.4 g/dl (31.0-37.0); Mean Corpuscular Volume 102 fL (80-100); Monocytes # (Auto) 0.6 Thou/mm3 (0.0-0.8); Monocytes % (Auto) 8 % (0-12); Neutrophils # (Auto) 5.4 Thou/mm3 (1.8-7.7); Neutrophils % (Auto) 78 % (37-80); Nucleated Red Blood Cell % 0 /100 WBC (0); Platelet Count 143 Thou/mm3 (140-440); RDW Standard Deviation 48.5 fL (35.1-43.9); Red Blood Count 3.64 Miln/mm3 (4.50-5.90); White Blood Count 6.9 Thou/mm3 (3.8-10.6)
[2024-01-18] MEDS: hydrOXYzine HCL 25 MG TABLET PO ×2 (06:00→14:52)
[2024-01-18] MEDS: chlordiazePOXIDE HCl 25 MG CAPSULE PO ×3 (06:00→21:07)
[2024-01-18 06:21] LABS: Alanine Aminotransferase 62 U/L (10-49); Albumin, Serum 4.6 gm/dL (3.5-5.0); Alkaline Phosphatase 209 U/L (46-116); Anion Gap 10 (7-16); Aspartate Amino Transferase 150 U/L (0-34); BUN/Creatinine Ratio 6 Ratio (12-20); Bilirubin,Direct 0.5 mg/dL (0.0-0.3); Bilirubin,Total 1.4 mg/dL (0.3-1.2); Blood Urea Nitrogen < 5 mg/dL (9-23); Calcium 9.6 mg/dL (8.3-10.6); Carbon Dioxide 26.4 mMol/L (20.0-31.0); Chloride 98 mMol/L (98-107); Creatinine (Component) 0.8 mg/dL (0.6-1.3); Estimated Creatinine Clearance 112.6 mL/min (>60); Glucose 95 mg/dL (74-106); Magnesium 1.7 mg/dL (1.6-2.6); Osmolality,Calculated 265 (275-295); Phosphorous 2.8 mg/dL (2.4-5.1); Potassium 3.4 mMol/L (3.4-5.1); Sodium 134 mMol/L (136-145); Total Protein 7.7 gm/dL (5.7-8.2); eGFR > 60 See Note
[2024-01-18] MEDS: FOLIC ACID 1 MG TABLET PO ×2 (08:09→20:38)
[2024-01-18] MEDS: THIAMINE 100 MG TABLET PO ×2 (08:09→20:39)
[2024-01-18] MEDS: PANTOPRAZOLE INJ 40 MG VIAL IVP (08:09)
[2024-01-18] MEDS: POTASSIUM CHLORIDE 20 mEq TABCR 40 MEQ PO (11:37)
[2024-01-18] MEDS: LORazepam 0.5 MG TABLET PO (12:24)
[2024-01-18] MEDS: HEPARIN SOD INJ 5000 UNIT/ML VIAL SC ×2 (13:44→21:07)
--- NOTE | 2024-01-18 16:34 | ESPR_ITS ---
Documentation for date of: 01/18/24 Subjective Subjective Interval history: Patient was seen and examined bedside. Still complaining of itchiness and pins and needle sensation. CIWA score assessed at bedside is 15. Will continue chlordiazepoxide and as needed lorazepam. Exam Vital Signs Temp Pulse Resp BP Pulse Ox O2 Del Method 97.9 F 93 20 115/74 96 Room Air 01/18/24 15:51 01/18/24 15:54 01/18/24 15:51 01/18/24 15:51 01/18/24 15:51 01/18/24 15:51 Narrative Exam General: Awake.lying comfortably on the bed HEENT: Normocephalic, atraumatic, mucous membranes moist. Heart: Regular rate and rhythm, no murmurs. Lungs: Clear to auscultation with no wheezing or crackles. Abdomen: Soft, nondistended, nontender, positive bowel sounds. ?No guarding or rebound tenderness. Neurologic: Alert and oriented x3, no gross neurological deficit, and patient able to move all 4 extremities. Extremities: No edema. Skin: No rash or ecchymoses. Objective Labs 01/19/24 04:38 01/19/24 04:38 Labs: Laboratory Results - last 24 hr 01/18/24 04:25 WBC 6.9 D RBC 3.64 L Hgb 13.1 L Hct 37.0 L MCV 102 H MCH 36.0 H MCHC 35.4 RDW Std Deviation 48.5 H Plt Count 143 Neut % (Auto) 78 Lymph % (Auto) 12 [place] % (Auto) 8 Eos % (Auto) 1 Baso % (Auto) 1 Neut # (Auto) 5.4 Lymph # (Auto) 0.9 L [place] # (Auto) 0.6 Eos # (Auto) 0.1 Baso # (Auto) 0.0 Immature Gran # (Auto) 0.03 H Absolute Nucleated RBC 0.00 Immature Gran % 0 Nucleated RBC % 0 Sodium 134 L Potassium 3.4 Chloride 98 Carbon Dioxide 26.4 Anion Gap 10 BUN < 5 L Creatinine 0.8 Estim Creat Clear Calc 112.6 eGFR > 60 BUN/Creatinine Ratio 6 L Glucose 95 Calculated Osmolality 265 L Calcium 9.6 Phosphorus 2.8 Magnesium 1.7 Total Bilirubin 1.4 H D Direct Bilirubin 0.5 H AST 150 H ALT 62 H Alkaline Phosphatase 209 H Total Protein 7.7 Albumin 4.6 D Quality Measures Quality Measures none Assessment & Plan Assessment Current Active Medications: Generic Name Dose Route Start Last Admin Trade Name Freq PRN Reason Stop Dose Admin Chlordiazepoxide HCl 25 mg 01/17/24 14:00 01/18/24 13:44 Chlordiazepoxide Hcl 25 Mg Capsule PO 01/22/24 13:59 25 mg Q8HR APOORVA Administration Folic Acid 1 mg 01/16/24 21:00 01/18/24 08:09 Folic Acid 1 Mg Tablet PO 01/21/24 20:59 1 mg BID APOORVA Administration Heparin Sodium (Porcine) 5,000 unit 01/16/24 22:00 01/18/24 13:44 Heparin Sod Inj 5000 Unit/Ml Vial SC 01/30/24 21:59 5,000 unit Q8HR APOORVA Administration Hydroxyzine HCl 25 mg 01/17/24 21:02 01/18/24 14:52 Hydroxyzine Hcl 25 Mg Tablet PO 02/16/24 21:01 25 mg Q6HR PRN Administration ITCHING Lorazepam 0.5 mg 01/16/24 20:56 01/18/24 12:24 Lorazepam 0.5 Mg Tablet PO 01/21/24 20:55 0.5 mg Q4HR PRN Administration CIWA Score 2-6 Lorazepam 1 mg 01/16/24 20:56 01/18/24 16:13 Lorazepam 0.5 Mg Tablet PO 01/21/24 20:55 1 mg Q4HR PRN Administration CIWA SCORE 7-11 Lorazepam 2 mg 01/16/24 20:56 01/17/24 07:39 Lorazepam 0.5 Mg Tablet PO 01/21/24 20:55 2 mg Q4HR PRN Administration CIWA SCORE 12-15 Lorazepam 1 mg 01/16/24 20:56 Lorazepam 2 Mg/Ml Vial IV X1 PRN Breakthrough Agitation Ondansetron HCl 4 mg 01/16/24 21:15 01/17/24 07:40 Ondansetron Inj 2 Mg/Ml Inj 2 Ml IV 02/15/24 21:14 4 mg Q6H PRN Administration NAUSEA OR VOMITING Protocol Pantoprazole Sodium 40 mg 01/17/24 09:00 01/18/24 08:09 Pantoprazole Inj 40 Mg Vial IVP 02/16/24 08:59 40 mg QDAY APOORVA Administration Thiamine HCl 100 mg 01/16/24 21:00 01/18/24 08:09 Thiamine 100 Mg Tablet PO 01/21/24 20:59 100 mg BID APOORVA Administration Plan The patient is a 28-year-old male with significant past medical history of alcohol use disorder and withdrawal seizures, recently diagnosed with liver cirrhosis was Biba to the ED on 01/27/2024 with generalized body pain of 1 week duration and alcohol withdrawals. # Alcohol intoxication # Alcohol withdrawal # Recently diagnosed with alcoholic liver disease # Transaminitis, resolving -Patient was recently admitted in hospital for chronic alcohol abuse and withdrawal seizures. -Admitted with abdominal pain, nausea, vomiting -Also complained of visual and auditory hallucination in the ED -Labs are significant for elevated AST and ALT with ratio > 2: 1 suggesting alcohol liver disease - downtrending -Urine toxicology is positive for alcohol. Ethyl alcohol level is 367.1 Mg/dl -CIWA score at the time of admission is 5, as of 01/17/2024 is 17 -Patient received at 1, thiamine and folate in the ED. Plan -Admitted to [facility] telemetry -Started on CIWA protocol and continuously monitoring CIWA score, 01/17 - 15 -Started on chlordiazepoxide 25 Mg 3 times daily. -Counseled on alcohol cessation -Seizure precautions. -Zofran as needed for nausea and vomitings # Macrocytic anemia Likely due to alcohol -Hemoglobin is 12.5 at the time of admission -MCV is 102, B12 levels as of 01/17/2024 is within normal limits -Folate is within normal limits as of 10/31/2023 Plan -Will continue to monitor CBC # Mild thrombocytopenia, resolved Likely due to alcoholic liver disease -Platelet count is normal at the time of admission -As of 01/17/2024, platelet count is 123 >12/11 , 143 Plan Will continue to monitor CBC and look for any bleeding tendencies Health maintenance: Dispo: MedTele Diet: Regular diet GI: Pantoprazole DVT: SC Heparin Hirsch: None Lines: Peripheral Code:Full Patient plan of care was discussed with the attending physician, Dr. Reza and senior resident Dr. Nicole Varner, PGY1 Attending Provider Attestation/Addendum I reviewed labs, imaging, EKG, home medications and prior available records. Face to face evaluation was performed by me. I have personally examined the patient and discussed assessment and plan with the IM team. I reviewed the resident note and agree with the plan with exceptions as below. Alcohol withdrawal: Complicated with seizure-like activity. Started the patient on Librium. Continue CIWA protocol. Continue thiamine and folic acid. Transaminitis: With AST more than ALT. In the setting of alcohol abuse. Management as above. Trend LFTs. Thrombocytopenia: In the setting of liver disease. No signs of bleeding. Monitor platelet level.
--- NOTE | 2024-01-18 19:27 | PC.NURSE ---
Addendum entered by Ryne Means RN 01/18/24 19:31: Dr. Jang aware of patients temp and heart rate. Dr. Jang will put an order in. Addendum entered by Ryne Means RN 01/18/24 19:29: Hospitalists did not answer. Will try again later. Original Note: Patient running an oral temp of 100.3 and a HR of 111. RN will notify hospitalists.
[2024-01-18] MEDS: ACETAMINOPHEN 325 MG TABLET 650 MG PO (19:39)
[2024-01-19] VITALS (8 sets, daily range): BP systolic 106–123; BP diastolic 61–78; PULSE 58–78; RESP 14–18; TEMP 36.2–36.9; O2SAT 95–98; BMI 23.1
[2024-01-19] MEDS: chlordiazePOXIDE HCl 25 MG CAPSULE PO ×3 (05:10→21:00)
[2024-01-19] MEDS: HEPARIN SOD INJ 5000 UNIT/ML VIAL SC ×3 (05:11→21:00)
[2024-01-19 05:33] LABS: Basophils # (Auto) 0.1 Thou/mm3 (0.0-0.2); Basophils % (Auto) 1 % (0-2.5); Eosinophils # (Auto) 0.1 Thou/mm3 (0.0-0.5); Eosinophils % (Auto) 2 % (0-10); Hemoglobin 13.9 g/dL (13.5-16.0); Immature Granulocytes % (Auto) 0 % (0-0); Immature Granulocytes Auto 0.02 Thou/mm3 (0.00-0.00); Lymphocytes # (Auto) 1.1 Thou/mm3 (1.0-4.8); Lymphocytes % (Auto) 18 % (10-50); Mean Corpuscular HGB Conc 34.8 g/dl (31.0-37.0); Mean Corpuscular Hemoglobin 35.5 pg (25.0-35.0); Mean Corpuscular Volume 102 fL (80-100); Monocytes # (Auto) 0.7 Thou/mm3 (0.0-0.8); Monocytes % (Auto) 11 % (0-12); Neutrophils # (Auto) 4.1 Thou/mm3 (1.8-7.7); Neutrophils % (Auto) 68 % (37-80); Nucleated Red Blood Cell % 0 /100 WBC (0); Platelet Count 157 Thou/mm3 (140-440); RDW Standard Deviation 48.2 fL (35.1-43.9); Red Blood Count 3.91 Miln/mm3 (4.50-5.90)
[2024-01-19 06:27] LABS: Anion Gap 9 (7-16); BUN/Creatinine Ratio 8 Ratio (12-20); Blood Urea Nitrogen 7 mg/dL (9-23); Calcium 9.9 mg/dL (8.3-10.6); Chloride 101 mMol/L (98-107); Creatinine (Component) 0.9 mg/dL (0.6-1.3); Estimated Creatinine Clearance 100.1 mL/min (>60); Glucose 94 mg/dL (74-106); Magnesium 1.9 mg/dL (1.6-2.6); Osmolality,Calculated 271 (275-295); Phosphorous 3.2 mg/dL (2.4-5.1); Potassium 3.6 mMol/L (3.4-5.1); Sodium 137 mMol/L (136-145); eGFR > 60 See Note
[2024-01-19] MEDS: FOLIC ACID 1 MG TABLET PO ×2 (09:27→20:53)
[2024-01-19] MEDS: PANTOPRAZOLE INJ 40 MG VIAL IVP (09:28)
[2024-01-19] MEDS: THIAMINE 100 MG TABLET PO ×2 (09:28→20:53)
--- NOTE | 2024-01-19 11:39 | PC.SS ---
Initial assessment: This is 28 year old male admitted for alcohol withdrawal seizure. Patient appeared alert and oriented. Patient informs he lives at home with parents. Patient confirmed demographic information. Patient's father, Abad was identified as the patient's alternate medical surrogate decision maker. Patient describes to be independent with ADL's. Patient denies use of DME at home. Patient's sees [facility] in [facility] for primary care. Pharmacy of choice is [facility]. in [place]. The discharge plan was discussed, and the patient would like to return home once medically cleared. Patient's family to assist with transportation home. Community resources provided to the patient due to substance use. Provided the patient with information to [place] [facility] to connect for services following hospital discharge as patient informed he experienced symptoms related to depression. Patient verbalized understanding referral process with services. No further questions. D/c plan: home Next of kin: Abad tena
--- NOTE | 2024-01-19 14:04 | ESPR_ITS ---
Documentation for date of: 01/19/24 Subjective Subjective Interval history: Patient is seen and examined bedside. still complaining of head and itchiness. CIWA score is 9. no acute overnight events. will continue librium TID and will continue CIWA protocol for today. planning to taper librium and discharge tomorrow. Exam Vital Signs Temp Pulse Resp BP Pulse Ox O2 Del Method 97.9 F 77 16 123/76 96 Room Air 01/19/24 12:00 01/19/24 12:00 01/19/24 12:00 01/19/24 12:00 01/19/24 12:00 01/19/24 12:00 Narrative Exam General: Awake. HEENT: Normocephalic, atraumatic, mucous membranes moist. Heart: Regular rate and rhythm, no murmurs. Lungs: Clear to auscultation with no wheezing or crackles. Abdomen: Soft, nondistended, nontender, positive bowel sounds. ?No guarding or rebound tenderness. Neurologic: Alert and oriented x3, no gross neurological deficit, and patient able to move all 4 extremities. Extremities: No edema. Tremors present. Skin: No rash or ecchymoses. Objective Labs 01/19/24 04:38 01/19/24 04:38 Labs: Laboratory Results - last 24 hr 01/19/24 04:38 WBC 6.0 RBC 3.91 L Hgb 13.9 Hct 40.0 L MCV 102 H MCH 35.5 H MCHC 34.8 RDW Std Deviation 48.2 H Plt Count 157 Neut % (Auto) 68 Lymph % (Auto) 18 [place] % (Auto) 11 Eos % (Auto) 2 Baso % (Auto) 1 Neut # (Auto) 4.1 Lymph # (Auto) 1.1 [place] # (Auto) 0.7 Eos # (Auto) 0.1 Baso # (Auto) 0.1 Immature Gran # (Auto) 0.02 H Absolute Nucleated RBC 0.00 Immature Gran % 0 Nucleated RBC % 0 Sodium 137 Potassium 3.6 Chloride 101 Carbon Dioxide 27.0 Anion Gap 9 BUN 7 L Creatinine 0.9 Estim Creat Clear Calc 100.1 eGFR > 60 BUN/Creatinine Ratio 8 L Glucose 94 Calculated Osmolality 271 L Calcium 9.9 Phosphorus 3.2 Magnesium 1.9 Quality Measures Quality Measures none Assessment & Plan Assessment Current Active Medications: Generic Name Dose Route Start Last Admin Trade Name Freq PRN Reason Stop Dose Admin Acetaminophen 650 mg 01/18/24 19:31 01/18/24 19:39 Acetaminophen 325 Mg Tablet PO 02/17/24 19:30 650 mg Q6HR PRN Administration Fever >100.1 Chlordiazepoxide HCl 25 mg 01/17/24 14:00 01/19/24 13:50 Chlordiazepoxide Hcl 25 Mg Capsule PO 01/22/24 13:59 25 mg Q8HR APOORVA Administration Folic Acid 1 mg 01/16/24 21:00 01/19/24 09:27 Folic Acid 1 Mg Tablet PO 01/21/24 20:59 1 mg BID APOORVA Administration Heparin Sodium (Porcine) 5,000 unit 01/16/24 22:00 01/19/24 13:50 Heparin Sod Inj 5000 Unit/Ml Vial SC 01/30/24 21:59 5,000 unit Q8HR APOORVA Administration Hydroxyzine HCl 25 mg 01/17/24 21:02 01/18/24 14:52 Hydroxyzine Hcl 25 Mg Tablet PO 02/16/24 21:01 25 mg Q6HR PRN Administration ITCHING Lorazepam 0.5 mg 01/16/24 20:56 01/18/24 12:24 Lorazepam 0.5 Mg Tablet PO 01/21/24 20:55 0.5 mg Q4HR PRN Administration CIWA Score 2-6 Lorazepam 1 mg 01/16/24 20:56 01/18/24 20:38 Lorazepam 0.5 Mg Tablet PO 01/21/24 20:55 1 mg Q4HR PRN Administration CIWA SCORE 7-11 Lorazepam 2 mg 01/16/24 20:56 01/17/24 07:39 Lorazepam 0.5 Mg Tablet PO 01/21/24 20:55 2 mg Q4HR PRN Administration CIWA SCORE 12-15 Lorazepam 1 mg 01/16/24 20:56 Lorazepam 2 Mg/Ml Vial IV X1 PRN Breakthrough Agitation Ondansetron HCl 4 mg 01/16/24 21:15 01/17/24 07:40 Ondansetron Inj 2 Mg/Ml Inj 2 Ml IV 02/15/24 21:14 4 mg Q6H PRN Administration NAUSEA OR VOMITING Protocol Pantoprazole Sodium 40 mg 01/17/24 09:00 12/12/24 09:28 Pantoprazole Inj 40 Mg Vial IVP 02/16/24 08:59 40 mg QDAY APOORVA Administration Thiamine HCl 100 mg 01/16/24 21:00 01/19/24 09:28 Thiamine 100 Mg Tablet PO 01/21/24 20:59 100 mg BID APOORVA Administration Plan The patient is a 28-year-old male with significant past medical history of alcohol use disorder and withdrawal seizures, recently diagnosed with liver cirrhosis was Biba to the ED on 01/27/2024 with generalized body pain of 1 week duration and alcohol withdrawals. # Alcohol intoxication # Alcohol withdrawal # Recently diagnosed with alcoholic liver disease # Transaminitis, resolving -Patient was recently admitted in hospital for chronic alcohol abuse and withdrawal seizures. -Admitted with abdominal pain, nausea, vomiting -Also complained of visual and auditory hallucination in the ED -Labs are significant for elevated AST and ALT with ratio > 2: 1 suggesting alcohol liver disease - downtrending -Urine toxicology is positive for alcohol. Ethyl alcohol level is 367.1 Mg/dl -CIWA score at the time of admission is 5, as of 01/17/2024 is 17 -Patient received at 1, thiamine and folate in the ED. Plan -Admitted to med telemetry -Started on CIWA protocol and continuously monitoring CIWA score, 01/17 - 15 > 01/18 - -Started on chlordiazepoxide 25 Mg 3 times daily. will change to BID tomorrow. -Counseled on alcohol cessation -Seizure precautions. -Zofran as needed for nausea and vomitings # Macrocytic anemia Likely due to alcohol -Hemoglobin is 12.5 at the time of admission -MCV is 102, B12 levels as of 01/17/2024 is within normal limits -Folate is within normal limits as of 10/31/2023 Plan -Will continue to monitor CBC # Mild thrombocytopenia, resolved Likely due to alcoholic liver disease -Platelet count is normal at the time of admission -As of 01/17/2024, platelet count is 123 >01/17, 143 Plan Will continue to monitor CBC and look for any bleeding tendencies Health maintenance: Dispo: MedTele Diet: Regular diet GI: Pantoprazole DVT: SC Heparin Hirsch: None Lines: Peripheral Code:Full Patient plan of care was discussed with the attending physician, Dr. Reza and senior resident Dr. Debra Varner, PGY1 L Mr Aden is a 28 year old male admitted for alcohol withdrawal, with seizure- like activity. Patient on APOORVA p.o. Librium. Continue CIWA protocol. Continue thiamine and folic acid. For the transaminitis and thrombpcytopenia, likely in the setting of alcohol abuse, also ordered hepatitis panel and HIV for completion given young age as well. Will continue to monitor labs closely. Anticipate discharge in 24 hours once CIWA maintains <5. Patient examined and case discussed with the team including attending physician. Note reviewed, I agree with the care plan as documented. - Timothy Richardson MD, PGY 2 Attending Provider Attestation/Addendum I reviewed labs, imaging, EKG, home medications and prior available records. Face to face evaluation was performed by me. I have personally examined the patient and discussed assessment and plan with the IM team. I reviewed the resident note and agree with the plan with exceptions as below. Alcohol withdrawal: Complicated with seizure-like activity. Started the patient on Librium. Continue CIWA protocol. Continue thiamine and folic acid. Librium taper upon discharge. Transaminitis: With AST more than ALT. In the setting of alcohol abuse. Management as above. Trend LFTs. Thrombocytopenia: In the setting of liver disease. No signs of bleeding. Monitor platelet level.
[2024-01-19 17:18] LABS: HIV (1&2) Antibody Rapid Non-Reactive
[2024-01-19 17:53] LABS: Hepatitis A Antibody IgM Non Reactive (Non React); Hepatitis B Core Antibody IgM Non Reactive (Non React); Hepatitis B Surface Antigen Non Reactive (Non React); Hepatitis C Antibody Non Reactive (Non React)
[2024-01-19] MEDS: LORazepam 0.5 MG TABLET PO (20:53)
[2024-01-20] VITALS: BP 118/76; PULSE 64; RESP 18; TEMP 36.4; O2SAT 97
[2024-01-20 04:00] VITALS: BP 118/79; PULSE 63; PULSE 66; RESP 16; TEMP 36.3; O2SAT 97
[2024-01-20] MEDS: chlordiazePOXIDE HCl 25 MG CAPSULE PO (05:25)
[2024-01-20] MEDS: HEPARIN SOD INJ 5000 UNIT/ML VIAL SC (05:25)
[2024-01-20 08:00] VITALS: BP 108/65; PULSE 64; RESP 16; TEMP 36.6; O2SAT 96
[2024-01-20] MEDS: FOLIC ACID 1 MG TABLET PO (08:34)
[2024-01-20] MEDS: THIAMINE 100 MG TABLET PO (08:34)
[2024-01-20] MEDS: PANTOPRAZOLE INJ 40 MG VIAL IVP (08:34)
[2024-01-20 12:00] VITALS: BP 117/71; PULSE 75; RESP 17; TEMP 36.8; O2SAT 96
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
== END 2024-01-20 13:40 | disposition home or self-care (01) | DRG 775 ==
LOC: SERX 20:03 → SERHOLD 21:40 → S3NX 23:26
PROVIDERS: Admitting Provider Internal Medicine; Emergency Provider Emergency Medicine; Visit Provider Student in an Organized Health Care Education/Training Program
DX: F10.132 Alcohol abuse with withdrawal with perceptual disturbance (principal); Y90.8 Blood alcohol level of 240 mg/100 ml or more; K70.30 Alcoholic cirrhosis of liver without ascites; K92.0 Hematemesis; D53.9 Nutritional anemia, unspecified; D69.59 Other secondary thrombocytopenia; F10.129 Alcohol abuse with intoxication, unspecified
CPT/HCPCS: 36415; 70450; 71045; 80048; 80053; 80074; 80076; 80307; 80320; 81001; 82550; 82607; 83605; 83735; 84100; 85014; 85018; 85025; 86703; 93225; 96365; 96366; 96372; 96375; 99291; J1643; J2060; J2405; J2470; J3411; J3490; J7030; J7042; A9270; G0480; J1644

== ENCOUNTER 2024-01-31 22:34 | Emergency (ER) | payer MEDICAID, SELFPAY ==
[2024-01-31 22:36] VITALS: PULSE 64; RESP 20; O2SAT 99
[2024-01-31 23:24] VITALS: BP 111/72; PULSE 92; RESP 18; TEMP 36.6; O2SAT 97
[2024-01-31] MEDS: LORazepam 0.5 MG TABLET 2 MG PO (23:51)
[2024-01-31] MEDS: THIAMINE 100 MG TABLET PO (23:52)
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
--- NOTE | 2024-02-01 00:52 | PC.NURSE ---
Pt in lobby and is noted to be awake, alert, talking. Pt tolerating PO fluids.
[2024-02-01] MEDS: NAPROXEN 250 MG TABLET 500 MG PO (01:11)
== END 2024-02-01 01:13 | disposition home or self-care (01) ==
PROVIDERS: Emergency Provider Emergency Medicine
DX: F10.939 Alcohol use, unspecified with withdrawal, unspecified (principal); K70.30 Alcoholic cirrhosis of liver without ascites; S60.512A Abrasion of left hand, initial encounter; S60.511A Abrasion of right hand, initial encounter; Y04.0XXA Assault by unarmed brawl or fight, initial encounter
CPT/HCPCS: 99283; A9270

== ENCOUNTER 2024-02-18 19:34 | Emergency (ER) | payer MEDICAID, SELFPAY ==
[2024-02-18 19:39] VITALS: PULSE 71; RESP 17; O2SAT 95; BMI 24.7
[2024-02-18 19:42] VITALS: BP 117/77; PULSE 86; RESP 16; TEMP 36.8; O2SAT 98
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
[2024-02-18 23:21] VITALS: BP 123/83; PULSE 69; RESP 16; TEMP 36.8; O2SAT 98
[2024-02-19 00:42] VITALS: RESP 18
== END 2024-02-19 00:44 | disposition home or self-care (01) ==
PROVIDERS: Emergency Provider Emergency Medicine; PCP Family Medicine
DX: F10.129 Alcohol abuse with intoxication, unspecified (principal)
CPT/HCPCS: 99282

== ENCOUNTER 2024-05-05 21:09 | Emergency (ER) | payer MEDICAID, SELFPAY ==
[2024-05-05 21:12] VITALS: BMI 24.7
--- NOTE | 2024-05-05 21:18 | EKG_ITS ---
[facility] Test Date: 2024-05-05 Pat Name: CASA DENTON Department: Room: - Gender: Male [employer]: : 1995 Requested By: Joshua Bonner Order Number: [id number] Reading MD: Joshua Bonner Measurements Intervals Watson Rate: 78 P: 48 ND: 122 QRS: 42 QRSD: 89 T: 59 QT: 358 QTc: 409 Interpretive Statements SINUS RHYTHM WITH SINUS ARRHYTHMIA POSSIBLE RIGHT VENTRICULAR CONDUCTION DELAY [RSR (QR) IN V1/V2] Compared to ECG 12/26/2023 00:19:44 Sinus bradycardia no longer present Early repolarization no longer present /store/S0/[id number]/ecg/[id number].pdf
--- NOTE | 2024-05-05 21:18 | PD.EDRME ---
Rapid Medical Screening Exam RME Arrival date/time: 05/05/24 21:09 28 yo m present to ED for c/o abd pain, hx of alcohol withdrawals I have greeted and performed a focused initial assessment of this patient. A comprehensive ED assessment and evaluation of the patient, analysis of all test results, and completion of the medical decision making process will be conducted by additional ED providers. Chief Complaint: Abdominal Pain
[2024-05-05 21:21] VITALS: BP 143/92; PULSE 97; RESP 20; TEMP 37.2; O2SAT 98
[2024-05-05 22:06] LABS: Basophils % (Auto) 0 % (0-2.5); Eosinophils % (Auto) 0 % (0-10); Hematocrit 39.3 % (41.0-53.0); Hemoglobin 13.5 g/dL (13.5-16.0); Immature Granulocytes % (Auto) 0 % (0-0); Immature Granulocytes Auto 0.01 Thou/mm3 (0.00-0.00); Lymphocytes # (Auto) 1.3 Thou/mm3 (1.0-4.8); Lymphocytes % (Auto) 28 % (10-50); Mean Corpuscular HGB Conc 34.4 g/dl (31.0-37.0); Mean Corpuscular Hemoglobin 33.5 pg (25.0-35.0); Mean Corpuscular Volume 98 fL (80-100); Monocytes # (Auto) 0.6 Thou/mm3 (0.0-0.8); Monocytes % (Auto) 12 % (0-12); Neutrophils # (Auto) 2.6 Thou/mm3 (1.8-7.7); Neutrophils % (Auto) 59 % (37-80); Nucleated Red Blood Cell % 0 /100 WBC (0); Platelet Count 237 Thou/mm3 (140-440); RDW Standard Deviation 58.5 fL (35.1-43.9); Red Blood Count 4.03 Miln/mm3 (4.50-5.90); White Blood Count 4.5 Thou/mm3 (3.8-10.6)
--- NOTE | 2024-05-05 22:15 | PD.EDABDPN ---
ED Abdominal Pain RME/HPI General Chief Complaint: Abdominal Pain Stated complaint: ABDOMINAL PAIN Time seen by provider: 05/05/24 22:12 Arrival date/time: 05/05/24 21:09 Source: patient Mode of arrival: ambulatory Limitations: no limitations RME / HPI RME / HPI narrative: 05/05/24 21:09 28 yo m present to ED for c/o abd pain, hx of alcohol withdrawals I have greeted and performed a focused initial assessment of this patient. A comprehensive ED assessment and evaluation of the patient, analysis of all test results, and completion of the medical decision making process will be conducted by additional ED providers. Dr. Walker?s Main ED Evaluation: 28-year-old male with a known history of alcohol dependence, cirrhosis, end-stage liver disease, alcohol withdrawal seizures, presents to the ED by car secondary to epigastric pain that started earlier today, rated 10/10, associated with nausea and episodes of vomiting. He reports ongoing alcohol use and a history of alcohol withdrawal symptoms. His last alcoholic intake was on 05/04/24. Related Data Previous Rx's ?Medication ?Instructions ?Recorded thiamine mononitrate (vit B1) 100 100 mg PO QDAY #30 tabs 12/12/23 mg tablet (Vitamin B-1 (mononitrate)) ondansetron 4 mg disintegrating 4 mg PO Q8H PRN nausea and 01/04/24 tablet vomiting #10 tabs chlordiazepoxide HCl 25 mg capsule 25 mg PO BID PRN agitation #6 caps 01/20/24 ondansetron 4 mg disintegrating 4 mg PO Q8H PRN nausea and 05/06/24 tablet vomiting #20 tabs Allergies Allergy/AdvReac Type Severity Reaction Status Date / Time No Known Allergies Allergy Verified 01/03/24 17:13 Review of Systems Review of Systems Systems Reviewed: All systems reviewed, normal except as documented Past Medical History Past Medical History NEUROLOGIC: Positive Neurological Disorders and Seizures CARDIAC: Negative Cardiac Disorders or Congestive Heart Failure RESPIRATORY: Negative Chronic Obstructive Pulmonary Disease (COPD) or Asthma GASTROINTESTINAL: Positive Gastrointestinal Disorders and Cirrhosis GENITOURINARY: Negative Genitourinary Disorders or Renal Disease MUSCULOSKELETAL: Negative Musculoskeletal Disorders ENDOCRINE: Negative Diabetes Mellitus Type 1 or Diabetes Mellitus Type 2 HEMATOLOGIC: Negative Sickle Cell Disease PSYCHO/SOCIAL: Positive Depression and Anxiety OTHER HISTORY: Negative Autoimmune Disease, Blood Transfusions, Blood Transfusion Reaction, Anesthesia Reactions, MRSA or Cancer Family History FAMILY HISTORY: Positive Family Psychiatric Problems; Negative Family Respiratory Disorders, Family Cardiac Disorders, Family Gastrointestinal Problems, Family Cancer, Family Surgery or Family Anesthesia Reaction Surgical History SURGICAL: Negative Abdominal Surgery Social History SMOKING STATUS: Never smoker SECOND HAND EXPOSURE: No ED Exam General Limitations: Present no limitations General appearance: Present alert and in no apparent distress Head Head exam: Present atraumatic Eye Eye exam: Present normal appearance, PERRL and EOMI ENT ENT exam: Present normal exam, normal oropharynx and mucous membranes moist Neck Neck exam: Present normal inspection, full ROM and trachea midline Chest Chest inspection: Present normal inspection and symmetric chest wall rise Respiratory Respiratory exam: Present normal lung sounds bilaterally Cardiovascular Cardiovascular exam: Present regular rate, normal rhythm and normal heart sounds Abdominal Exam Abdominal exam: Present soft and normal bowel sounds Extremities Exam Extremities exam: Present normal inspection and full ROM Back Exam Back exam: Present normal inspection and full ROM Neurological Exam Neurological exam: Present alert, oriented X3 and CN II-XII intact Psychiatric Psychiatric exam: Present normal affect and normal mood Skin Skin exam: Present warm, dry, intact and normal color Course Quality Measures none Orders Category Date Time Status CT Screening NOW Care 05/05/24 22:47 Active EKG (ED ONLY) *Do not use* NOW Care 05/05/24 21:19 Completed IV [Insert IV] STAT Care 05/05/24 21:[address] abdomen pelvis w con Stat Exams 05/05/24 22:47 Completed EKG (ED Only) Stat Exams 05/05/24 21:18 Draft US gall bladder Stat Exams 05/06/24 01:30 Taken Alcohol, Blood Medical Stat Lab 05/05/24 21:50 Completed Amylase Stat Lab 05/05/24 21:50 Completed CBC Stat Lab 05/05/24 21:50 Completed CMP [Comprehensive Metabolic Panel] Stat Lab 05/05/24 21:50 Completed Drug Screen,Urine Stat Lab 05/05/24 21:19 Completed Lipase Stat Lab 05/05/24 21:50 Completed Troponin I Stat Lab 05/05/24 21:50 Completed Folic Acid Inj Med 05/05/24 21:20 Discontinued 1 mg IVP X1 ONE Ketorolac Inj [Toradol Inj] Med 05/06/24 02:55 Discontinued 30 mg IVP X1 ONE LORazepam [Ativan Inj] Med 05/05/24 21:18 Discontinued 2 mg IVP X1 ONE Ondansetron Inj [Zofran Inj] Med 05/05/24 21:18 Discontinued 4 mg IV X1 ONE Pantoprazole Inj [Protonix Inj] Med 05/05/24 22:47 Discontinued 40 mg IVP X1 ONE Sodium Chloride 0.9% 1000 ml [Ns] 1,000 ml Med 05/05/24 21:19 Discontinued IV 999 mls/hr Thiamine [Vitamin B-1] Med 05/05/24 21:20 Discontinued 100 mg PO X1 ONE Vital Signs Vital signs: Vital Signs Temperature 98.9 F 05/05/24 21:21 Pulse Rate 97 05/05/24 21:21 Respiratory Rate 20 05/05/24 21:21 Blood Pressure 143/92 H 05/05/24 21:21 Pulse Oximetry (%) 98 05/05/24 21:21 Oxygen Delivery Method Room Air 05/05/24 21:21 Abdominal Pain MDM MDM Narrative MDM Narrative:: EKG, according to my interpretation, sinus rhythm with sinus arrhythmia, heart rate 78 bpm, QTc: 409 ms, no acute ischemic changes noted. 28-year-old male coming in with chronic elevated LFTs and some epigastric pain here to emergency department. The gallbladder ultrasound does not show gallbladder stones or pericholecystic fluid. Common bile duct is normal at 3.5 mm. No pericholecystic fluid. Patient is amphetamine positive although otherwise alcohol less than 3.0. CT scan shows no evidence of diverticulitis or appendicitis. Patient is not in alcohol withdrawal at this time. I have spoken with the patient and discussed today?s findings, in addition to providing specific details for the plan of care. Questions are answered and there is an agreement with the plan. Re-assessment at the time of disposition demonstrates that the patient is in no acute distress. The patient has remained stable throughout the entire ED visit and is without objective evidence for acute process requiring urgent intervention or hospitalization. The patient is stable for discharge; counseling is provided and documented as above, discussed symptomatic treatment and specific conditions for return. Scribe Attestation: I, Ariela Baig, am scribing for and in the presence of Dr. Walker. Provider Notation: Although this document has been carefully reviewed, there may still be some phonetic and other typographical errors. These errors are purely grammatical due to imperfections in the software program and should not be construed in any way to compromise the substance of the patient's medical care during this visit. Patient data External records reviewed:: [facility] previous records Clinical information provided by:: patient Social determinants that could affect healthcare access:: alcohol use Patient has the following chronic illnesses:: seizures, anxiety, depression, cirrhosis How is presenting disease/condition affected by chronic disease/condition?: uneffected by Evaluation data The following diagnostics were reviewed and interpreted by me:: lab results, radiology exam(s) and EKG tracing(s) Lab and/or radiology exams considered but not ordered:: na Interpretation Summary: Examination: CT abdomen with intravenous contrast CT pelvis with intravenous contrast Date and time of exam:May 05, 2024 1112 hours INDICATIONS: Nausea and epigastric pain today Findings: Small esophageal hernia Liver is mildly irregular in contour, no focal liver lesions Gallbladder wall appears mildly thickened No pancreatic or adrenal mass No renal or ureteral calculi, no hydronephrosis Aorta normal size No pericecal inflammatory change No bowel obstruction No diverticulitis Distended urinary bladder No significant prostatomegaly Tiny fat-containing right inguinal hernia IMPRESSION: Recommend hepatobiliary sonography to exclude gallbladder wall thickening No renal or ureteral calculi, no hydronephrosis No CT findings of appendicitis bowel obstruction or diverticulitis Distended urinary bladder Dictated By: Saúl Barrett MD Medications / Prescriptions Medications or Prescriptions considered but not ordered:: n/a Medication administrations:: Medication Administration History Discontinued Medications Folic Acid (Folic Acid Inj 1 Mg/0.2 Ml) 1 mg IVP X1 ONE Stop: 05/05/24 21:21 Last Admin: 05/05/24 22:22 Dose: 1 mg Documented By: BALJIT Sodium Chloride (Ns) 1,000 mls @ 999 mls/hr IV .Q1H1M ONE Stop: 05/05/24 22:19 Last Infusion: 05/05/24 23:31 Dose: Infused Documented By: Admin: 05/05/24 22:26 Dose: 999 mls/hr Documented By: ZORAN Ketorolac Tromethamine (Ketorolac Inj 30 Mg/Ml Vial) 30 mg IVP X1 ONE Stop: 05/06/24 02:56 Last Admin: 05/06/24 03:29 Dose: 30 mg Documented By: JE Lorazepam (Lorazepam 2 Mg/Ml Vial) 2 mg IVP X1 ONE Stop: 05/05/24 21:19 Last Admin: 05/05/24 22:19 Dose: 2 mg Documented By: BALJIT Ondansetron HCl (Ondansetron Inj 2 Mg/Ml Inj 2 Ml) 4 mg IV X1 ONE; Protocol Stop: 05/05/24 21:19 Last Admin: 05/05/24 22:20 Dose: 4 mg Documented By: BALJIT Pantoprazole Sodium (Pantoprazole Inj 40 Mg Vial) 40 mg IVP X1 ONE Stop: 05/05/24 22:48 Last Admin: 05/05/24 23:12 Dose: 40 mg Documented By: ZORAN Thiamine HCl (Thiamine 100 Mg Tablet) 100 mg PO X1 ONE Stop: 05/05/24 21:21 Last Admin: 05/05/24 22:31 Dose: 100 mg Documented By: ZORAN as above, if any Consultations Consultation(s) initiated? (list below): No Diagnosis Differential diagnosis abdominal pain: abdominal pain and other (liver cirrhosis, ascites) Most likely diagnosis given after review of the tests above:: see clinical impression Admission Indicated Admission indicated?: not indicated Admission Request Was there a request for admission?: No Disposition Plan Disposition Plan: Discharge Discharge Attestation Discharge Attestation: The patient and all family members were given an opportunity to ask questions and understood the discharge instructions. Discharge instructions specifically effects, indications for sooner follow up or return to the emergency department, and the expected course of current diagnosis. Patient condition: Stable Discharge Plan Plan Patient Disposition: HOME (Self Care) Patient condition on transfer: Stable Prescriptions/Referrals Prescriptions/Med Rec: New ondansetron 4 mg tablet,disintegrating 4 mg PO Q8H PRN (Reason: nausea and vomiting) Qty: 20 0RF No Action chlordiazepoxide HCl 25 mg capsule 25 mg PO BID MDD 2 PRN (Reason: agitation) Qty: 6 0RF Rx Instructions: Take 1 tab every 12 hrs for first 2 days, followed by one tablet daily for following two days thiamine mononitrate (vit B1) [Vitamin B-1 (mononitrate)] 100 mg Tablet 100 mg PO QDAY Qty: 30 0RF ondansetron 4 mg tablet,disintegrating 4 mg PO Q8H PRN (Reason: nausea and vomiting) Qty: 10 0RF Referrals: Balwinder Humphrey MD [Primary Care Provider] - In 1 week Problem List Clinical Impression: Epigastric abdominal pain Patient/Caregiver Discharge Instructions Diet Instructions: Stay hydrated Pedialyte and Gatorade. Education Materials: ED Epigastric Pain (Uncertain Cause) Additional Instructions: Return to the emergency department for worsening symptoms, or any other concerns. Print Language: Kazakh Stand Alone Forms: Claire Award Info., Patient Portal Info Letter
[2024-05-05] MEDS: LORazepam 2 MG/ML VIAL IVP (22:19)
[2024-05-05] MEDS: ONDANSETRON INJ 2 MG/ML INJ 2 ML 4 MG IV (22:20)
[2024-05-05] MEDS: FOLIC ACID INJ 1 MG/0.2 ML IVP (22:22)
[2024-05-05] MEDS: SODIUM CHLORIDE 0.9% 1000 ML 1,000 ML 999 ML IV (22:26)
[2024-05-05] MEDS: THIAMINE 100 MG TABLET PO (22:31)
[2024-05-05 22:40] LABS: Alanine Aminotransferase 35 U/L (10-49); Albumin, Serum 4.7 gm/dL (3.5-5.0); Albumin/Globulin Ratio 1.5 (1.2-2.2); Alcohol, Blood Medical < 3.0 mg/dL (0-10.0); Alkaline Phosphatase 158 U/L (46-116); Amylase 74 U/L (30-118); Anion Gap 10 (7-16); Aspartate Amino Transferase 66 U/L (0-34); BUN/Creatinine Ratio 9 Ratio (12-20); Bilirubin,Total 0.9 mg/dL (0.3-1.2); Blood Urea Nitrogen 8 mg/dL (9-23); Calcium 9.6 mg/dL (8.3-10.6); Calcium (Corrected) 9.6 mg/dL (8.5-10.1); Carbon Dioxide 26.8 mMol/L (20.0-31.0); Chloride 98 mMol/L (98-107); Creatinine (Component) 0.9 mg/dL (0.6-1.3); Estimated Creatinine Clearance 100.1 mL/min (>60); Globulin 3.1 gm/dL (2.3-3.5); Glucose 101 mg/dL (74-106); Lipase 41 U/L (12-53); Osmolality,Calculated 268 (275-295); Potassium 3.5 mMol/L (3.4-5.1); Sodium 135 mMol/L (136-145); Total Protein 7.8 gm/dL (5.7-8.2); Troponin I < 0.002 ng/mL (0.0-0.045); eGFR > 60 See Note
[2024-05-05 22:42] VITALS: PULSE 57; RESP 15; O2SAT 99
--- NOTE | 2024-05-05 22:47 | XR_ITS ---
Examination: CT abdomen with intravenous contrast CT pelvis with intravenous contrast 2-D coronal reconstructions 2-D sagittal reconstructions Date and time of exam:May 05, 2024 1112 hours INDICATIONS: Nausea and epigastric pain today COMPARISON: January 03, 2024. CTDI: vol (mGy) 6.1 DLP: (mGycm) 332 Technique: Multiple axial sections of the abdomen and pelvis have been obtained. 64 slice high-resolution scanner used. 3 mm axial sections have been obtained, post intravenous injection 60 cc [id number] 2-D sagittal, coronal reconstructions obtained. Low dose protocols were performed. One or more of the following dose reduction techniques were used; automated exposure control, adjustment of the mA and/or KV according to patient size, use of iterative reconstruction technique. Findings: Small esophageal hernia Liver is mildly irregular in contour, no focal liver lesions Gallbladder wall appears mildly thickened No pancreatic or adrenal mass No renal or ureteral calculi, no hydronephrosis Aorta normal size No pericecal inflammatory change No bowel obstruction No diverticulitis Distended urinary bladder No significant prostatomegaly Tiny fat-containing right inguinal hernia IMPRESSION: Recommend hepatobiliary sonography to exclude gallbladder wall thickening No renal or ureteral calculi, no hydronephrosis No CT findings of appendicitis bowel obstruction or diverticulitis Distended urinary bladder
[2024-05-05 23:00] VITALS: PULSE 65; RESP 14; O2SAT 98
[2024-05-05] MEDS: PANTOPRAZOLE INJ 40 MG VIAL IVP (23:12)
[2024-05-06] VITALS (10 sets, daily range): BP systolic 104–128; BP diastolic 55–80; PULSE 55–72; RESP 13–21; TEMP 36.6–36.8; O2SAT 93–98
[2024-05-06 00:23] LABS: Amphetamine/Methamp Scrn,U Positive (Negative); Barbiturate Screen,Urine Negative (Negative); Benzodiazepines Screen,Urine Negative (Negative); Benzoylecgonine Screen, Ur Negative (Negative); Fentanyl Screen,Urine Negative (Negative); Opiate Screen,Urine Negative (Negative); THC Screen,Urine Negative (Negative)
--- NOTE | 2024-05-06 01:30 | XR_ITS ---
Examination: Abdomen sonogram, Limited Date and time of exam: May 06, 2024, 1344 hours INDICATIONS: Epigastric pain beginning today Technique: Real-time hearn scale transabdominal sonographic images of the upper abdomen obtained. Findings: Negative for gallstones Gallbladder is contracted Gallbladder wall 0.52 cm no edema Common bile ducts are 0.3 cm Pancreatic head 3.0 cm Liver 15.1 cm fatty infiltration Normal hepatopedal portal venous flow Patent IVC IMPRESSION: Gallbladder wall is thickened which may relate to contracted gallbladder, recommend repeating the gallbladder portion of the study with fasting and consider MRCP follow-up as clinically warranted
[2024-05-06] MEDS: KETOROLAC INJ 30 MG/ML VIAL IVP (03:29)
== END 2024-05-06 06:53 | disposition home or self-care (01) ==
PROVIDERS: Physician Assistant; Emergency Provider Emergency Medicine; PCP Family Medicine
DX: R10.13 Epigastric pain (principal); K70.30 Alcoholic cirrhosis of liver without ascites
CPT/HCPCS: 36415; 74177; 76705; 80053; 80307; 80320; 82150; 83690; 84484; 85025; 93005; 96374; 96375; 96376; 99285; A4649; J1885; J2060; J2405; J2470; J3490; J7030; Q9967; A9270; G0480

== ENCOUNTER 2024-05-07 14:20 | Emergency (ER) | payer MEDICAID, SELFPAY ==
[2024-05-07 14:22] VITALS: BMI 23.9
[2024-05-07 14:27] VITALS: BP 125/90; PULSE 108; RESP 20; TEMP 36.8; O2SAT 98
--- NOTE | 2024-05-07 14:29 | PD.EDRME ---
Rapid Medical Screening Exam E Arrival date/time: 05/07/24 14:20 28-year-old male with medical history significant for methamphetamine abuse as well as alcohol abuse presents for complaint of left lower abdominal pain patient was seen 2 days ago for the same Chief Complaint: Back Pain/Injury Time Seen by Provider: 05/07/24 14:24 Vital signs: Vital Signs Temperature 98.2 F 05/07/24 14:27 Pulse Rate 108 H 05/07/24 14:27 Respiratory Rate 20 05/07/24 14:27 Blood Pressure 125/90 H 05/07/24 14:27 Pulse Oximetry (%) 98 05/07/24 14:27 Oxygen Delivery Method Room Air 05/07/24 14:27
[2024-05-07] MEDS: MG HYD/AL HYD/SIME (Maalox Reg) SUSP 30 ML UDC PO (14:48)
[2024-05-07] MEDS: FAMOTIDINE 20 MG TABLET PO (14:48)
[2024-05-07] MEDS: LIDOCAINE VISCOUS 2% 15 ML UDC PO (14:48)
[2024-05-07 15:10] LABS: Basophils % (Auto) 0 % (0-2.5); Eosinophils # (Auto) 0.1 Thou/mm3 (0.0-0.5); Eosinophils % (Auto) 1 % (0-10); Hematocrit 41.6 % (41.0-53.0); Hemoglobin 14.4 g/dL (13.5-16.0); Immature Granulocytes % (Auto) 0 % (0-0); Immature Granulocytes Auto 0.01 Thou/mm3 (0.00-0.00); Lymphocytes # (Auto) 1.4 Thou/mm3 (1.0-4.8); Lymphocytes % (Auto) 32 % (10-50); Mean Corpuscular HGB Conc 34.6 g/dl (31.0-37.0); Mean Corpuscular Hemoglobin 33.7 pg (25.0-35.0); Mean Corpuscular Volume 97 fL (80-100); Monocytes # (Auto) 0.6 Thou/mm3 (0.0-0.8); Monocytes % (Auto) 13 % (0-12); Neutrophils # (Auto) 2.4 Thou/mm3 (1.8-7.7); Neutrophils % (Auto) 54 % (37-80); Nucleated Red Blood Cell % 0 /100 WBC (0); Platelet Count 223 Thou/mm3 (140-440); RDW Standard Deviation 55.8 fL (35.1-43.9); Red Blood Count 4.27 Miln/mm3 (4.50-5.90); White Blood Count 4.5 Thou/mm3 (3.8-10.6)
[2024-05-07 15:28] LABS: Alanine Aminotransferase 37 U/L (10-49); Albumin, Serum 4.7 gm/dL (3.5-5.0); Albumin/Globulin Ratio 1.5 (1.2-2.2); Alcohol, Blood Medical < 3.0 mg/dL (0-10.0); Alkaline Phosphatase 145 U/L (46-116); Anion Gap 9 (7-16); Aspartate Amino Transferase 65 U/L (0-34); BUN/Creatinine Ratio 5 Ratio (12-20); Bilirubin,Total 1.5 mg/dL (0.3-1.2); Blood Urea Nitrogen 5 mg/dL (9-23); Calcium 9.6 mg/dL (8.3-10.6); Calcium (Corrected) 9.6 mg/dL (8.5-10.1); Carbon Dioxide 28.7 mMol/L (20.0-31.0); Chloride 98 mMol/L (98-107); Estimated Creatinine Clearance 90.1 mL/min (>60); Globulin 3.2 gm/dL (2.3-3.5); Glucose 109 mg/dL (74-106); Lipase 43 U/L (12-53); Osmolality,Calculated 270 (275-295); Potassium 3.8 mMol/L (3.4-5.1); Sodium 136 mMol/L (136-145); Total Protein 7.9 gm/dL (5.7-8.2); eGFR > 60 See Note
[2024-05-07 16:14] VITALS: BP 158/79; PULSE 84; RESP 18; TEMP 36.9; O2SAT 98
[2024-05-07 20:29] LABS: Collection Type, Urine Clean Catch; Squamous Epithelial Cell,Urine 0 /hpf (0-5)
[2024-05-07 20:35] VITALS: BP 128/86; PULSE 60; RESP 16; TEMP 36.9; O2SAT 99
--- NOTE | 2024-05-07 20:40 | PD.EDADULT ---
ED General RME/HPI General Chief complaint: Back Pain/Injury Stated complaint: BACK/NECK PAIN WORSENED THIS AM X 2D Time Seen by Provider: 05/07/24 14:24 Arrival date/time: 05/07/24 14:20 CC: Left upper quadrant abdominal pain HPI progressive increase in severity, was seen here 2 days ago for the same thing was discharged. Per patient last alcohol intake was , 4 days ago. Patient states pain is now 8 on a 10 scale radiating to the back. Patient denies nausea or vomiting. Patient states he does shaking. Patient is known to us for multiple visits for alcohol intoxication. RME / HPI RME / HPI narrative: 05/07/24 14:20 28-year-old male with medical history significant for methamphetamine abuse as well as alcohol abuse presents for complaint of left lower abdominal pain patient was seen 2 days ago for the same Related Data Previous Rx's ?Medication ?Instructions ?Recorded thiamine mononitrate (vit B1) 100 100 mg PO QDAY #30 tabs 12/12/23 mg tablet (Vitamin B-1 (mononitrate)) ondansetron 4 mg disintegrating 4 mg PO Q8H PRN nausea and 01/04/24 tablet vomiting #10 tabs chlordiazepoxide HCl 25 mg capsule 25 mg PO BID PRN agitation #6 caps 01/20/24 ondansetron 4 mg disintegrating 4 mg PO Q8H PRN nausea and 05/06/24 tablet vomiting #20 tabs Allergies Allergy/AdvReac Type Severity Reaction Status Date / Time No Known Allergies Allergy Verified 05/07/24 14:24 Review of Systems Review of Systems Narrative Review of Systems: GEN: No fever, no chills, no weight loss EYES: No discharge, no visual changes, no pain HEENT: No ear pain, no congestion, no sore throat PULM: No shortness of breath, no cough, no congestion CV: No chest pain, no dyspnea on exertion, no palpitations GI: No nausea, no vomiting, no diarrhea, + pain, no constipation : No frequency, no urgency, no dysuria MUSC/SKEL: No joint pain, no back pain SKIN: No rash PSYCH: No hallucinations, no depression HEME/LYMPH: No easy bleeding or bruising tendencies NEURO: No weakness, no headache Past Medical History Past Medical History NEUROLOGIC: Positive Neurological Disorders and Seizures CARDIAC: Negative Cardiac Disorders or Congestive Heart Failure RESPIRATORY: Negative Chronic Obstructive Pulmonary Disease (COPD) or Asthma GASTROINTESTINAL: Positive Gastrointestinal Disorders and Cirrhosis GENITOURINARY: Negative Genitourinary Disorders or Renal Disease MUSCULOSKELETAL: Negative Musculoskeletal Disorders ENDOCRINE: Negative Diabetes Mellitus Type 1 or Diabetes Mellitus Type 2 HEMATOLOGIC: Negative Sickle Cell Disease PSYCHO/SOCIAL: Positive Depression and Anxiety OTHER HISTORY: Negative Autoimmune Disease, Blood Transfusions, Blood Transfusion Reaction, Anesthesia Reactions, MRSA or Cancer Family History FAMILY HISTORY: Positive Family Psychiatric Problems; Negative Family Respiratory Disorders, Family Cardiac Disorders, Family Gastrointestinal Problems, Family Cancer, Family Surgery or Family Anesthesia Reaction Surgical History SURGICAL: Negative Abdominal Surgery Social History SMOKING STATUS: Never smoker SECOND HAND EXPOSURE: No ED Exam Narrative Physical exam: [General: Moderate discomfort but not in any acute distress Head normocephalic HEENT: Within acceptable limits Neck is supple nontender Chest equal chest rise nontender to palpation Respiratory: Clear to auscultation no wheezes crackles or rubs CV: Rate rhythm is regular no murmurs rubs or clicks Abdomen epigastric and left upper quadrant abdominal pain with reflexive guarding no rebound tenderness no right upper quadrant abdominal pain no lower abdomen pain. Back: No CVA tenderness no spinous process tenderness from cervical spine thoracic and lumbar spine Skin: Intact no petechiae rash induration ulceration or crepitus Extremities: Moving all extremity against resistance cap refill less than 2 seconds neurosensory intact patient is noted to have fine hand tremens. Neuro: Awake alert oriented x3 Glascow coma 15 no focal deficits] Course Quality Measures none Orders Category Date Time Status MRI Screening NOW Care 05/07/24 20:45 Completed Miscellaneous Nursing Order NOW Care 05/08/24 08:50 Completed Saline [Insert IV] NOW Care 05/07/24 20:39 Completed MR MRCP Stat Exams 05/08/24 Completed Alcohol, Blood Medical Stat Lab 05/07/24 14:55 Completed CBC Stat Lab 05/07/24 14:55 Completed Comprehensive Metabolic Panel Stat Lab 05/07/24 14:55 Completed Lipase Stat Lab 05/07/24 14:55 Completed UA, C/S IF [Urinalysis, C/S if Indicated] Stat Lab 05/07/24 20:13 Completed Acetaminophen Tab [Tylenol ES Tab] Med 05/08/24 11:08 Discontinued 1,000 mg PO X1 ONE Famotidine [Pepcid] Med 05/07/24 14:29 Discontinued 20 mg PO X1 ONE Folic Acid Med 05/08/24 08:50 Discontinued 2 mg PO X1 ONE LORazepam [Ativan Inj] Med 05/07/24 20:39 Discontinued 2 mg IVP X1 ONE Lidocaine 2% Viscous [Xylocaine 2% Viscous] Med 05/07/24 14:29 Discontinued 15 ml PO X1 ONE Morphine Inj Med 05/07/24 20:39 Discontinued 4 mg IVP X1 ONE Morphine Inj Med 05/08/24 08:33 Discontinued 4 mg IVP X1 ONE Multivitamin. Med 05/08/24 08:50 Discontinued 1 tab PO X1 ONE Ondansetron Inj [Zofran Inj] Med 05/07/24 20:39 Discontinued 4 mg IV X1 ONE Ondansetron Inj [Zofran Inj] Med 05/08/24 08:33 Discontinued 4 mg IV X1 ONE Sodium Chloride 0.9% 1000 ml [Ns] 1,000 ml Med 05/07/24 20:39 Discontinued IV 125 mls/hr Sodium Chloride 0.9% 1000 ml [Ns] 1,000 ml Med 05/07/24 20:39 Discontinued IV 999 mls/hr Sodium Chloride 0.9% 1000 ml [Ns] 1,000 ml Med 05/08/24 08:50 Discontinued IV 999 mls/hr Thiamine Inj [Vitamin B-1 Inj] Med 05/08/24 09:00 Discontinued 100 mg IVP X1 ONE Thiamine Inj [Vitamin B-1 Inj] 100 mg Med 05/08/24 08:51 Discontinued Sodium Chloride 0.9% [Ns] 100 ml IV X1 mg Hyd/Al Hyd/Julian Susp [Maalox Susp] Med 05/07/24 14:29 Discontinued 30 ml PO X1 ONE Vital Signs Vital signs: Vital Signs Temperature 98.2 F 05/07/24 14:27 Pulse Rate 108 H 05/07/24 14:27 Respiratory Rate 20 05/07/24 14:27 Blood Pressure 125/90 H 05/07/24 14:27 Pulse Oximetry (%) 98 05/07/24 14:27 Oxygen Delivery Method Room Air 05/07/24 14:27 [facility] Patient data External records reviewed:: [facility] [place] previous records Clinical information provided by:: patient Social determinants that could affect healthcare access:: alcohol use Patient has the following chronic illnesses:: Back pain How is presenting disease/condition affected by chronic disease/condition?: exacerbated by Evaluation data The following diagnostics were reviewed and interpreted by me:: lab results and radiology exam(s) Lab and/or radiology exams considered but not ordered:: CBC shows no leukocytosis anemia thrombocytopenia CMP shows no significant electrolyte imbalances no renal impairment T. bili of 1.5 AST of 65 alk phos of 145 ALT of 37. Lipase is within acceptable limits at 43. Alcohol level is less than 3. Interpretation Summary: Based on the 2-day old gallbladder ultrasound and the rapid rise in the T. bili from normal to 1.5 patient is getting need an MRCP. Will hold the patient throughout the night until tomorrow morning for MRCP. Patient is in agreement with this plan. Medications Medications considered but not ordered:: None Medication administrations:: Medication Administration History Discontinued Medications Acetaminophen (Acetaminophen 500 Mg Tablet) 1,000 mg PO X1 ONE Stop: 05/08/24 11:09 Last Admin: 05/08/24 11:12 Dose: 1,000 mg Documented By: RICKIE Al Hydrox/Mg Hydrox/Simethicone (Mg Hyd/Al Hyd/Julian (Maalox Reg) Susp 30 Ml Udc) 30 ml PO X1 ONE Stop: 05/07/24 14:30 Last Admin: 05/07/24 14:48 Dose: 30 ml Documented By: SOLITARIO Famotidine (Famotidine 20 Mg Tablet) 20 mg PO X1 ONE Stop: 05/07/24 14:30 Last Admin: 05/07/24 14:48 Dose: 20 mg Documented By: SOLITARIO Folic Acid (Folic Acid 1 Mg Tablet) 2 mg PO X1 ONE Stop: 05/08/24 08:51 Last Admin: 05/08/24 09:32 Dose: 2 mg Documented By: RICKIE Sodium Chloride (Ns) 1,000 mls @ 999 mls/hr IV .Q1H1M ONE Stop: 05/07/24 21:39 Last Infusion: 05/07/24 22:03 Dose: Infused Documented By: Admin: 05/07/24 21:03 Dose: 999 mls/hr Documented By: AMARILYS Sodium Chloride (Ns) 1,000 mls @ 125 mls/hr IV .Q8H APOORVA Stop: 06/06/24 20:38 Last Infusion: 05/08/24 07:15 Dose: Infused Documented By: Admin: 05/07/24 22:04 Dose: 125 mls/hr Documented By: AMARILYS Sodium Chloride (Ns) 1,000 mls @ 999 mls/hr IV .Q1H1M ONE Stop: 05/08/24 09:50 Last Infusion: 05/08/24 10:40 Dose: Infused Documented By: Admin: 05/08/24 09:31 Dose: 999 mls/hr Documented By: RICKIE Thiamine HCl 100 mg/ Sodium (Chloride) 101 mls @ 202 mls/hr IV X1 ONE Stop: 05/08/24 09:20 Last Admin: 05/08/24 09:37 Dose: Not Given Documented By: RICKIE Non-Admin Reason: Cancelled by Provider Lidocaine HCl (Lidocaine Viscous 2% 15 Ml Udc) 15 ml PO X1 ONE Stop: 05/07/24 14:30 Last Admin: 05/07/24 14:48 Dose: 15 ml Documented By: SOLITARIO Lorazepam (Lorazepam 2 Mg/Ml Vial) 2 mg IVP X1 ONE Stop: 05/07/24 20:40 Last Admin: 05/07/24 21:03 Dose: 2 mg Documented By: BD Morphine Sulfate (Morphine Sulf Inj 10 Mg/Ml Vial) 4 mg IVP X1 ONE Stop: 05/07/24 20:40 Last Admin: 05/07/24 21:04 Dose: 4 mg Documented By: BD Morphine Sulfate (Morphine Sulf Inj 10 Mg/Ml Vial) 4 mg IVP X1 ONE Stop: 05/08/24 08:34 Last Admin: 05/08/24 08:40 Dose: Not Given Documented By: RICKIE Non-Admin Reason: Cancelled by Provider Multivitamins (Multivitamins Tablet) 1 tab PO X1 ONE Stop: 05/08/24 08:51 Last Admin: 05/08/24 09:37 Dose: 1 tab Documented By: RICKIE Ondansetron HCl (Ondansetron Inj 2 Mg/Ml Inj 2 Ml) 4 mg IV X1 ONE; Protocol Stop: 05/07/24 20:40 Last Admin: 05/07/24 21:03 Dose: 4 mg Documented By: BD Ondansetron HCl (Ondansetron Inj 2 Mg/Ml Inj 2 Ml) 4 mg IV X1 ONE; Protocol Stop: 05/08/24 08:34 Last Admin: 05/08/24 08:40 Dose: Not Given Documented By: RICKIE Non-Admin Reason: Cancelled by Provider Thiamine HCl (Thiamine Inj 100 Mg/Ml Vial 2 Ml) 100 mg IVP X1 ONE Stop: 05/08/24 09:01 Last Admin: 05/08/24 09:31 Dose: 100 mg Documented By: RICKIE None Consultations Consultation(s) initiated? (list below): No Diagnosis Differential Diagnosis ED Complaint MDM: Alcohol withdrawal, choledocholithiasis cholelithiasis pancreatitis Most likely diagnosis given after review of the tests above:: Choledocholithiasis Admission Indicated Admission indicated?: not indicated Explain why admission is indicated or not indicated:: Stable for outpatient follow-up Admission Request Was there a request for admission?: No Disposition Plan Disposition Plan: Discharge Discharge Attestation Discharge Attestation: The patient and all family members were given an opportunity to ask questions and understood the discharge instructions. Discharge instructions specifically effects, indications for sooner follow up or return to the emergency department, and the expected course of current diagnosis. Patient condition: Stable Medical Decision Making Differential Diagnosis Differential Diagnosis: Alcohol withdrawal, choledocholithiasis cholelithiasis pancreatitis Lab Data 05/07/24 14:55 05/07/24 14:55 Labs: Lab Results 05/07/24 05/07/24 Range/Units 14:55 20:13 WBC 4.5 (3.8-10.6) Thou/mm3 RBC 4.27 L (4.50-5.90) Miln/mm3 Hgb 14.4 (13.5-16.0) g/dL Hct 41.6 (41.0-53.0) % MCV 97 (80-100) fL MCH 33.7 (25.0-35.0) pg MCHC 34.6 (31.0-37.0) g/dl RDW Std Deviation 55.8 H (35.1-43.9) fL Plt Count 223 (140-440) Thou/mm3 Neut % (Auto) 54 (37-80) % Lymph % (Auto) 32 (10-50) % [place] % (Auto) 13 H (0-12) % Eos % (Auto) 1 (0-10) % Baso % (Auto) 0 (0-2.5) % Neut # (Auto) 2.4 (1.8-7.7) Thou/mm3 Lymph # (Auto) 1.4 (1.0-4.8) Thou/mm3 [place] # (Auto) 0.6 (0.0-0.8) Thou/mm3 Eos # (Auto) 0.1 (0.0-0.5) Thou/mm3 Baso # (Auto) 0.0 (0.0-0.2) Thou/mm3 Immature Gran # (Auto) 0.01 H (0.00-0.00) Thou/mm3 Absolute Nucleated RBC 0.00 (0.00-0.00) Thou/mm3 Immature Gran % 0 (0-0) % Nucleated RBC % 0 (0) /100 WBC Sodium 136 (136-145) mMol/L Potassium 3.8 (3.4-5.1) mMol/L Chloride 98 (98-107) mMol/L Carbon Dioxide 28.7 (20.0-31.0) mMol/L Anion Gap 9 (7-16) BUN 5 L (9-23) mg/dL Creatinine 1.0 (0.6-1.3) mg/dL Estim Creat Clear Calc 90.1 (>60) mL/min eGFR > 60 (60 - ) See Note BUN/Creatinine Ratio 5 L (12-20) Ratio Glucose 109 H (74-106) mg/dL Calculated Osmolality 270 L (275-295) Calcium 9.6 (8.3-10.6) mg/dL Corrected Calcium 9.6 (8.5-10.1) mg/dL Total Bilirubin 1.5 H D (0.3-1.2) mg/dL AST 65 H (0-34) U/L ALT 37 (10-49) U/L Alkaline Phosphatase 145 H (46-116) U/L Total Protein 7.9 (5.7-8.2) gm/dL Albumin 4.7 (3.5-5.0) gm/dL Globulin 3.2 (2.3-3.5) gm/dL Albumin/Globulin Ratio 1.5 (1.2-2.2) Lipase 43 (12-53) U/L Ur Collection Type Clean Catch Urine Color Yellow (Lt Yel-Yel) Urine Clarity Clear (Clear/Hazy) Urine pH 7.0 (5.0-7.0) Ur Specific [place] 1.016 (1.001-1.035) Urine Protein Negative (Neg - Trace) Urine Glucose (UA) Negative (Negative) Urine Ketones 2+ A (Negative) Urine Blood Negative (Negative) Urine Nitrite Negative (Negative) Urine Bilirubin Negative (Negative) Urine Urobilinogen (Auto) 2.0 (0.0-1.0) mg/dL Ur Leukocyte Esterase Negative (Negative) Urine RBC < 1 (0-3) /hpf Urine WBC 1 (0-5) /hpf Ur Squamous Epith Cells 0 (0-5) /hpf Amorphous Crystals Present A (Absent) Urine Bacteria Rare (None) Ur Culture Indicated? Not Indicated Ethyl Alcohol < 3.0 (0-10.0) mg/dL Discharge Plan Plan Patient Disposition: HOME (Self Care) Patient condition on transfer: Stable Prescriptions/Referrals Prescriptions/Med Rec: No Action chlordiazepoxide HCl 25 mg capsule 25 mg PO BID MDD 2 PRN (Reason: agitation) Qty: 6 0RF Rx Instructions: Take 1 tab every 12 hrs for first 2 days, followed by one tablet daily for following two days thiamine mononitrate (vit B1) [Vitamin B-1 (mononitrate)] 100 mg Tablet 100 mg PO QDAY Qty: 30 0RF ondansetron 4 mg tablet,disintegrating 4 mg PO Q8H PRN (Reason: nausea and vomiting) Qty: 10 0RF ondansetron 4 mg tablet,disintegrating 4 mg PO Q8H PRN (Reason: nausea and vomiting) Qty: 20 0RF Referrals: No Primary/Family,Physician [Primary Care Provider] - In 1 week Problem List Clinical Impression: Alcohol abuse, Alcohol withdrawal, Abdominal cramps Patient/Caregiver Discharge Instructions Education Materials: Abdominal Pain, Alcohol Withdrawal: What to Expect, ED Alcohol Abuse Additional Instructions: As we discussed your shakiness appear to be alcohol withdrawal related. Your medical workup has not negative MRCP and do not think there is anything more serious going on we do not believe there is a surgical problem at this time. Please drink plenty of fluids and a balanced diet. Because is always difficult to diagnose early surgical problem we asked that she return in 6 to 8 hours if you are still hurting or if in the next 6 to 8 hours you are getting worse with increased pain vomiting or sicker please return for reevaluation to exclude any other etiology of your symptoms. Print Language: [place] Stand Alone Forms: Patient Portal Info Letter
[2024-05-07 20:49] LABS: Amorphous Crystals,Urine Present (Absent); Bacteria,Urine Rare; Bilirubin,Urine Negative (Negative); Blood,Urine Negative (Negative); Clarity,Urine Clear (Clear/Hazy); Color,Urine Yellow (Lt Yel-Yel); Culture Indicated,Urine Not Indicated; Glucose, Urine Negative (Negative); Ketones,Urine 2+ (Negative); Leukocyte Esterase,Urine Negative (Negative); Nitrite,Urine Negative (Negative); Protein,Urine Negative (Neg - Trace); RBC,Urine < 1 /hpf (0-3); Specific Gravity,Urine 1.016 (1.001-1.035); WBC,Urine 1 /hpf (0-5)
--- NOTE | 2024-05-07 20:51 | PC.NURSE ---
PT HERE FOR ABD PAIN STATES HE WAS HERE 05/05/24 FOR SAME PAIN BUT HAS NOT RESOLVED HE STATED HE WENT TO PRIMARY TODAY BUT ADVISED TO COME BACK TO ER. PT STATES PAIN 1010 ALL OVER ABD THAT RADIATES TO BACK.
[2024-05-07] MEDS: LORazepam 2 MG/ML VIAL IVP (21:03)
[2024-05-07] MEDS: SODIUM CHLORIDE 0.9% 1000 ML 1,000 ML 999 ML IV (21:03)
[2024-05-07] MEDS: ONDANSETRON INJ 2 MG/ML INJ 2 ML 4 MG IV (21:03)
[2024-05-07] MEDS: MORPHINE SULF INJ 10 MG/ML VIAL 4 MG IVP (21:04)
[2024-05-07] MEDS: SODIUM CHLORIDE 0.9% 1000 ML 1,000 ML 125 ML IV (22:04)
--- NOTE | 2024-05-07 23:04 | PD.EDADDENDU ---
Emergency Room Addendum Addendum Narrative: 2300: Care assumed from Alan Altamirano NP. Past medical, surgical, social and family history reviewed. Vitals and home medications reviewed. Results and treatment plan discussed. I will assume the care of the patient at this time and will follow the patient, pending MRCP Please refer to the emergency department record for history and examination from initial visit. The patient was placed in ED observation care at 05/07/24 at 2300 hours. The patient was placed in ED observation care because of pending MRCP. The patients past medical history, social history, and family history were reviewed. Patient remained stable while under my observation. 0600: Care signed out to Dr. Hays (emergency physician). Past medical, surgical, social and family history reviewed. Vitals and home medications reviewed. Results and treatment plan discussed. They will assume the care of the patient at this time and will follow the patient, pending MRCP. At this time, observation has ended.
[2024-05-07 23:32] VITALS: BP 113/81; PULSE 51; RESP 16; TEMP 36.6; O2SAT 96
--- NOTE | 2024-05-08 | XR_ITS ---
MRI abdomen, without contrast. MRCP Date and time of exam: May 08, 2024, 0651 hours INDICATIONS: Abdominal pain beginning 2 days ago, alcohol abuse history, elevated total bilirubin on laboratory examination yesterday Technique: Multiple axial and coronal images of the abdomen have been obtained with the Siemens 1.5T MRI scanner. Images obtained included T1 weighted transverse images, T2-weighted transverse images, T2-weighted transverse images fat-suppressed, T2 weighted haste fat suppressed transverse images, T1 weighted images, in and out of phase images, T2-weighted coronal images, breath hold, T2 weighted haze coronal images as well as T2 weighted coronal thick slab images, MRCP. Findings: Liver is mildly irregular in contour No focal liver lesions No intrahepatic biliary tract dilatation No gallstones Normal gallbladder wall Normal common hepatic common bile duct 2 to 3 mm in dimension, no common hepatic or common bile duct stones Negative for pancreatitis Spleen not enlarged No ascites Aorta normal size No hydronephrosis IMPRESSION: Normal gallbladder Normal common hepatic common bile duct
[2024-05-08 01:00] VITALS: BP 119/87; PULSE 48; RESP 13; O2SAT 96
[2024-05-08 03:00] VITALS: BP 117/83; PULSE 48; RESP 14; O2SAT 97
[2024-05-08 05:00] VITALS: BP 124/91; PULSE 49; RESP 10; O2SAT 97
--- NOTE | 2024-05-08 06:20 | EDNOTE_ITS ---
Emergency Room Addendum <Hazel Pastrana - Last Filed: 05/08/24 08:28> Addendum Narrative: 0600: Care assumed from Dr. Rascon, the previous shift emergency physician. Past medical, surgical, social and family history reviewed. Vitals and home medications reviewed. I will assume the care of the patient at this time pending MRCP and final disposition. Please refer to the emergency department record for history and examination from initial visit.?The following addendum documentation note is intended to reflect any pending information, findings, or radiology results not included in the patient?s initial chart. RADIOLOGY Ordering Physician: Alan Altamirano NP Date of Service: 05/08/24 Procedure(s): MR MRCP Accession Number(s): [id number] cc: Alan Altamirano NP; Saúl Barrett MD; NO PRIMARY/FAMILY,PHYSICIAN~ MRI abdomen, without contrast. MRCP Date and time of exam: May 08, 2024, 0651 hours INDICATIONS: Abdominal pain beginning 2 days ago, alcohol abuse history, elevated total bilirubin on laboratory examination yesterday Technique: Multiple axial and coronal images of the abdomen have been obtained with the Siemens 1.5T MRI scanner. Images obtained included T1 weighted transverse images, T2-weighted transverse images, T2-weighted transverse images fat-suppressed, T2 weighted haste fat suppressed transverse images, T1 weighted images, in and out of phase images, T2-weighted coronal images, breath hold, T2 weighted haze coronal images as well as T2 weighted coronal thick slab images, MRCP. Findings: Liver is mildly irregular in contour No focal liver lesions No intrahepatic biliary tract dilatation No gallstones Normal gallbladder wall Normal common hepatic common bile duct 2 to 3 mm in dimension, no common hepatic or common bile duct stones Negative for pancreatitis Spleen not enlarged No ascites Aorta normal size No hydronephrosis IMPRESSION: Normal gallbladder Normal common hepatic common bile duct Dictated By: Saúl Barrett MD Signed By: <Electronically signed by Saúl Barrett MD in [place]>05/08/24 0816 <Asael Hays MD - Last Filed: 05/08/24 17:25> Addendum Narrative: 0600: Care assumed from Dr. Rascon, the previous shift emergency physician. Past medical, surgical, social and family history reviewed. Vitals and home medications reviewed. I will assume the care of the patient at this time pending MRCP and final disposition. Please refer to the emergency department record for history and examination from initial visit.?The following addendum documentation note is intended to reflect any pending information, findings, or radiology results not included in the p atient?s initial chart. Patient was signed out 0600 hrs. because he is having back pain abdominal pain evidently drinks regularly and the initial medical workup revealed an elevated bilirubin relative to baseline of normal but further review of the chart by myself reveals he is has several bilirubins that are above the normal range with normal is intermittently. Because of this that MRCP was done and the result came back entirely negative. I went back in the room at 0830 hrs. and did a full reevaluation patient reports to me that he drinks at least 3 40 ounce beers in the last couple weeks daily and previous to this he is drank heavily for many years. He evidently states he went to his sikh and made a decision to stop drinking 4 days ago. Today he is jittery bilaterally complains of his whole body feels horrible specifically his back of his abdomen with intermittent cramps and some nausea and vomiting. There was no blood. Nurse approached me about an hour ago stating he was complaining more pain but I think in reality he is actually having withdrawals. Note he is not tachycardic he is not hallucinating he does have tremors. This time give another liter of fluid given some vitamins see if he can hold down fluids and reevaluate him clinically and make a decision whether he can go home or be admitted. Reevaluation at patient sleeping at 1240 hrs. heart rates in the 60s blood pressure is good he gets up and stands and jumps up and down has no obvious peritoneal signs. He still feels he is got some generalized malaise body aches and maybe some cramping. At this point I believe this is most likely alcohol withdrawal as does not drink for 4 days. He is tremulous but not hallucinating not tachycardic and I think he will be fine as an outpatient. He was given very clear instructions to return if getting worse in any way that 6 or 8 hours. However he is uncertain he returns for reevaluation of his belly and 8 hours. MRCP came back negative. He does have a significant alcohol history white count was 4.5 hemoglobin 14.4 platelet count is 223,000. Osmolality is little low at 270. Total bilirubin is slightly elevated 1.5. AST was 65 ALT was 37 lipase came back negative. Urinalysis came back with 2+ ketones got some amorphous crystals present alcohol level was negative. MRCP came back negative we can review the report. I believe the patient safe to go home at 1245 hrs. he is able to ambulate. His vital signs are adequate. He is probably having alcohol withdrawal with the tremulousness and he knows and not start drinking again he is getting help with your discharge. RADIOLOGY Ordering Physician: Alan Altamirano NP Date of Service: 05/08/24 Procedure(s): MR MRCP Accession Number(s): [id number] cc: Alan Altamirano HISTOTECHNOLOGIST SUPERVISOR; Saúl Barrett MD; NO PRIMARY/FAMILY,PHYSICIAN~ MRI abdomen, without contrast. MRCP Date and time of exam: May 08, 2024, 0651 hours INDICATIONS: Abdominal pain beginning 2 days ago, alcohol abuse history, elevated total bilirubin on laboratory examination yesterday Technique: Multiple axial and coronal images of the abdomen have been obtained with the Siemens 1.5T MRI scanner. Images obtained included T1 weighted transverse images, T2-weighted transverse images, T2-weighted transverse images fat-suppressed, T2 weighted haste fat suppressed transverse images, T1 weighted images, in and out of phase images, T2-weighted coronal images, breath hold, T2 weighted haze coronal images as well as T2 weighted coronal thick slab images, MRCP. Findings: Liver is mildly irregular in contour No focal liver lesions No intrahepatic biliary tract dilatation No gallstones Normal gallbladder wall Normal common hepatic common bile duct 2 to 3 mm in dimension, no common hepatic or common bile duct stones Negative for pancreatitis Spleen not enlarged No ascites Aorta normal size No hydronephrosis
--- NOTE | 2024-05-08 07:12 | PC.NURSE ---
Received report and assumed care of patient.
--- NOTE | 2024-05-08 07:48 | PC.NURSE ---
PATIENT RETURNED FROM [facility]. PATIENT REQUESTED PAIN MEDICATION AND RECEIVED VERBAL ORDER FOR ER PROVIDER FOR 4MG MORPHINE IV AND 4MG ZOFRAN IV.
[2024-05-08] MEDS: THIAMINE INJ 100 MG/ML VIAL 2 ML IVP (09:31)
[2024-05-08] MEDS: SODIUM CHLORIDE 0.9% 1000 ML 1,000 ML 999 ML IV (09:31)
[2024-05-08] MEDS: FOLIC ACID 1 MG TABLET 2 MG PO (09:32)
[2024-05-08] MEDS: MULTIVITAMINS TABLET 1 TAB PO (09:37)
[2024-05-08] MEDS: ACETAMINOPHEN 500 MG TABLET 1000 MG PO (11:12)
[2024-05-08 11:13] VITALS: BP 139/92; PULSE 60; RESP 15; TEMP 37.1; O2SAT 96
[2024-05-08 11:15] VITALS: BP 138/91; PULSE 58; RESP 17; TEMP 37.2; O2SAT 95
[2024-05-08 13:24] VITALS: BP 126/79; PULSE 79; RESP 18; TEMP 36.9; O2SAT 98
== END 2024-05-08 13:55 | disposition home or self-care (01) ==
PROVIDERS: Nurse Practitioner Primary Care; Emergency Provider Emergency Medicine
DX: F10.139 Alcohol abuse with withdrawal, unspecified (principal); Y90.0 Blood alcohol level of less than 20 mg/100 ml; R10.12 Left upper quadrant pain; R10.32 Left lower quadrant pain
CPT/HCPCS: 36415; 80053; 80307; 80320; 81001; 83690; 85025; 96361; 96374; 96375; 99285; J2060; J2270; J2405; J3411; J3490; J7030; S8037; 74181; A9270; G0480

== ENCOUNTER 2024-06-15 21:46 | Emergency (ER) | payer MEDICAID, SELFPAY ==
[2024-06-15 21:48] VITALS: BMI 24.7
[2024-06-15 21:54] VITALS: BP 109/34; PULSE 109; RESP 15; TEMP 36.4; O2SAT 99
--- NOTE | 2024-06-15 22:17 | XR_ITS ---
Examination: CT abdomen and pelvis without contrast. Coronal 3-D reconstructions. Sagittal 2-D reconstructions. Date and time of exam:June 15, 2024 1057 hours Comparison May 05, 2024 INDICATIONS: Abdominal pain beginning 2 days ago CTDI: vol (mGy): 12 DLP: (mGycm): 636 Technique: Axial images of the abdomen have been obtained, 3 mm slice thickness Intravenous contrast material has not been administered. Low dose protocols were performed. One or more of the following dose reduction techniques were used; automated exposure control, adjustment of the mA and/or KV according to patient size, use of iterative reconstruction technique. Findings: Fatty infiltration throughout the liver with irregular contour Cholelithiasis Spleen not enlarged No pancreatic or adrenal mass No renal or ureteral calculi Aorta normal size No bowel obstruction No pericecal inflammatory change No prostatomegaly Bilateral intact Osseous structures intact IMPRESSION: Primary hepatocellular disease with fatty infiltration throughout the liver Cholelithiasis No renal or ureteral calculi, no hydronephrosis No CT findings of bowel obstruction or diverticulitis
--- NOTE | 2024-06-15 22:17 | PD.EDRME ---
Rapid Medical Screening Exam RME Arrival date/time: 06/15/24 21:46 This is a case of 28-year-old male who came into the emergency room due to generalized abdominal pain cramping and doctor with nausea vomiting patient states that the pain makes him feeling to pass out denies any constipation diarrhea or blood in stool denies any fever or chills Chief Complaint: Abdominal Pain Time Seen by Provider: 06/15/24 22:15 Vital signs: Vital Signs Temperature 97.6 F 06/15/24 21:54 Pulse Rate 109 H 06/15/24 21:54 Respiratory Rate 15 06/15/24 21:54 Blood Pressure 109/34 L 06/15/24 21:54 Pulse Oximetry (%) 99 06/15/24 21:54 Oxygen Delivery Method Room Air 06/15/24 21:54
[2024-06-15 22:45] LABS: Basophils % (Auto) 1 % (0-2.5); Eosinophils % (Auto) 1 % (0-10); Hematocrit 40.3 % (41.0-53.0); Hemoglobin 14.3 g/dL (13.5-16.0); Immature Granulocytes % (Auto) 0 % (0-0); Immature Granulocytes Auto 0.01 Thou/mm3 (0.00-0.00); Lymphocytes % (Auto) 27 % (10-50); Mean Corpuscular HGB Conc 35.5 g/dl (31.0-37.0); Mean Corpuscular Hemoglobin 34.9 pg (25.0-35.0); Mean Corpuscular Volume 98 fL (80-100); Monocytes # (Auto) 0.6 Thou/mm3 (0.0-0.8); Monocytes % (Auto) 17 % (0-12); Neutrophils # (Auto) 1.9 Thou/mm3 (1.8-7.7); Neutrophils % (Auto) 54 % (37-80); Nucleated Red Blood Cell % 0 /100 WBC (0); Platelet Count 103 Thou/mm3 (140-440); RDW Standard Deviation 55.1 fL (35.1-43.9); White Blood Count 3.5 Thou/mm3 (3.8-10.6)
[2024-06-15 22:54] LABS: Alanine Aminotransferase 118 U/L (10-49); Albumin, Serum 5.2 gm/dL (3.5-5.0); Albumin/Globulin Ratio 1.5 (1.2-2.2); Alkaline Phosphatase 274 U/L (46-116); Anion Gap 12 (7-16); Aspartate Amino Transferase 274 U/L (0-34); BUN/Creatinine Ratio 6 Ratio (12-20); Bilirubin,Total 1.6 mg/dL (0.3-1.2); Blood Urea Nitrogen 5 mg/dL (9-23); Calcium 9.9 mg/dL (8.3-10.6); Calcium (Corrected) 9.9 mg/dL (8.5-10.1); Carbon Dioxide 22.9 mMol/L (20.0-31.0); Chloride 95 mMol/L (98-107); Creatinine (Component) 0.8 mg/dL (0.6-1.3); Estimated Creatinine Clearance 112.6 mL/min (>60); Globulin 3.5 gm/dL (2.3-3.5); Glucose 87 mg/dL (74-106); Lipase 43 U/L (12-53); Osmolality,Calculated 257 (275-295); Potassium 3.9 mMol/L (3.4-5.1); Sodium 130 mMol/L (136-145); Total Protein 8.7 gm/dL (5.7-8.2); eGFR > 60 See Note
[2024-06-15 23:09] LABS: Collection Type, Urine Clean Catch; Squamous Epithelial Cell,Urine 0 /hpf (0-5)
[2024-06-15 23:25] LABS: Bilirubin,Urine Negative (Negative); Blood,Urine Negative (Negative); Clarity,Urine Clear (Clear/Hazy); Color,Urine Yellow (Lt Yel-Yel); Glucose, Urine Negative (Negative); Ketones,Urine 3+ (Negative); Leukocyte Esterase,Urine Negative (Negative); Nitrite,Urine Negative (Negative); Protein,Urine 1+ (Neg - Trace); RBC,Urine 1 /hpf (0-3); Urobilinogen,Urine Negative mg/dL (0.0-1.0); WBC,Urine 1 /hpf (0-5)
[2024-06-16 03:49] VITALS: BP 126/73; PULSE 87; RESP 18; TEMP 36.9; O2SAT 96
--- NOTE | 2024-06-16 03:53 | PD.EDABDPN ---
ED Abdominal Pain RME/HPI General Chief Complaint: Abdominal Pain Stated complaint: ABD PAIN RADIATING TO CHEST Time seen by provider: 06/15/24 22:15 Arrival date/time: 06/15/24 21:46 RME / HPI RME / HPI narrative: 06/15/24 21:46 This is a case of 28-year-old male who came into the emergency room due to generalized abdominal pain cramping and doctor with nausea vomiting patient states that the pain makes him feeling to pass out denies any constipation diarrhea or blood in stool denies any fever or chills ------- Dr. Tamayo?s Main ED Evaluation: 28yo male presents to the ED for complaints of generalized abdominal and back pain. Patient states he drinks a lot of alcohol every day and I have for a long time . Patient states he stopped drinking 2 days ago due to having abdominal and back pain. Patient reports associated nausea and vomiting. He denies any diarrhea, fever, chills or any other associated symptoms. NKA. Related Data Previous Rx's ?Medication ?Instructions ?Recorded thiamine mononitrate (vit B1) 100 100 mg PO QDAY #30 tabs 12/12/23 mg tablet (Vitamin B-1 (mononitrate)) ondansetron 4 mg disintegrating 4 mg PO Q8H PRN nausea and 01/04/24 tablet vomiting #10 tabs chlordiazepoxide HCl 25 mg capsule 25 mg PO BID PRN agitation #6 caps 01/20/24 ondansetron 4 mg disintegrating 4 mg PO Q8H PRN nausea and 05/06/24 tablet vomiting #20 tabs Allergies Allergy/AdvReac Type Severity Reaction Status Date / Time No Known Allergies Allergy Verified 05/07/24 14:24 Review of Systems Review of Systems Systems Reviewed: All systems reviewed, normal except as documented Past Medical History Past Medical History NEUROLOGIC: Positive Neurological Disorders and Seizures CARDIAC: Negative Cardiac Disorders or Congestive Heart Failure RESPIRATORY: Negative Chronic Obstructive Pulmonary Disease (COPD) or Asthma GASTROINTESTINAL: Positive Gastrointestinal Disorders and Cirrhosis GENITOURINARY: Negative Genitourinary Disorders or Renal Disease MUSCULOSKELETAL: Negative Musculoskeletal Disorders ENDOCRINE: Negative Diabetes Mellitus Type 1 or Diabetes Mellitus Type 2 HEMATOLOGIC: Negative Sickle Cell Disease PSYCHO/SOCIAL: Positive Depression and Anxiety OTHER HISTORY: Negative Autoimmune Disease, Blood Transfusions, Blood Transfusion Reaction, Anesthesia Reactions, MRSA or Cancer Family History FAMILY HISTORY: Positive Family Psychiatric Problems; Negative Family Respiratory Disorders, Family Cardiac Disorders, Family Gastrointestinal Problems, Family Cancer, Family Surgery or Family Anesthesia Reaction Surgical History SURGICAL: Negative Abdominal Surgery Social History SMOKING STATUS: Never smoker SECOND HAND EXPOSURE: No ED Exam Narrative Physical exam: GENERAL APPEARANCE: AxOx4, generally well-appearing, tremulous, hyperactive, no acute distress. HEENT: NC, AT. MMM. EOMI, clear conjunctiva, oropharynx clear. NECK: Supple without lymphadenopathy. No stiffness or restricted ROM. HEART: Normal rate and regular rhythm, normal S1/S1, no m/r/g LUNGS: CTAB, moving air well. No crackles or wheezes are heard. ABDOMEN: Soft, nontender, nondistended with good bowel sounds heard. BACK: No midline C/T/L spine pain or deformity, No CVAT, no obvious deformity. EXTREMITIES: Without cyanosis, clubbing or edema. MUSCULOSKELETAL: FROM of all major joints, no chest tenderness NEUROLOGICAL: Grossly nonfocal. Alert and oriented, moving all 4 extremities. CN not formally tested but appear grossly intact. Observed to ambulate with normal gait. Skin: Warm and dry without any rash. Course Quality Measures none Orders Category Date Time Status CT abdomen pelvis wo con Stat Exams 06/15/24 22:17 Completed CBC Stat Lab 06/15/24 22:24 Completed Comprehensive Metabolic Panel Stat Lab 06/15/24 22:24 Completed Lipase Stat Lab 06/15/24 22:24 Completed Urinalysis Stat Lab 06/15/24 22:58 Completed Diazepam [Valium] Med 06/16/24 05:53 Once 10 mg PO X1 ONE Diazepam [Valium] Med 06/16/24 03:58 Discontinued 20 mg PO X1 ONE Diazepam [Valium] Med 06/16/24 05:32 Discontinued 20 mg PO X1 ONE Reevaluation(s) Reevaluation #1: Patient continues to have tremors. Additional Valium 20mg. Time: 05:32 Vital Signs Vital signs: Vital Signs Temperature 97.6 F 06/15/24 21:54 Pulse Rate 109 H 06/15/24 21:54 Respiratory Rate 15 06/15/24 21:54 Blood Pressure 109/34 L 06/15/24 21:54 Pulse Oximetry (%) 99 06/15/24 21:54 Oxygen Delivery Method Room Air 06/15/24 21:54 Abdominal Pain MDM MDM Narrative MDM Narrative:: Scribe Attestation: 06/16/24 Celina Emery am scribing for and in the presence of Dr. Tamayo. Patient data External records reviewed:: [facility] previous records (Per chart review, patient was seen here on 05/07/24 for abdominal cramps.) Clinical information provided by:: patient Social determinants that could affect healthcare access:: alcohol use Patient has the following chronic illnesses:: none How is presenting disease/condition affected by chronic disease/condition?: no chronic disease Evaluation data The following diagnostics were reviewed and interpreted by me:: lab results and radiology exam(s) Lab and/or radiology exams considered but not ordered:: none Interpretation Summary: CBC is normal, Total Bilirubin is 1.6, LFTs are elevated, Lipase is normal, UA is unremarkable. --------- [place] [facility] Report Signed Patient: CASA DENTON Record#: [id number] Birthdate: 1995 Age/Sex: 28 / M Location: [facility] Attending Dr: Ordering Physician: Elena Ross Date of Service: 06/15/24 Procedure(s): CT abdomen pelvis wo con Accession Number(s): [id number] cc: Saúl Barrett MD; NO PRIMARY/FAMILY,PHYSICIAN; Elena Ross~ Examination: CT abdomen and pelvis without contrast. Coronal 3-D reconstructions. Sagittal 2-D reconstructions. Date and time of exam:June 15, 2024 1057 hours Comparison May 05, 2024 INDICATIONS: Abdominal pain beginning 2 days ago CTDI: vol (mGy): 12 DLP: (mGycm): 636 Technique: Axial images of the abdomen have been obtained, 3 mm slice thickness Intravenous contrast material has not been administered. Low dose protocols were performed. One or more of the following dose reduction techniques were used; automated exposure control, adjustment of the mA and/or KV according to patient size, use of iterative reconstruction technique. Findings: Fatty infiltration throughout the liver with irregular contour Cholelithiasis Spleen not enlarged No pancreatic or adrenal mass No renal or ureteral calculi Aorta normal size No bowel obstruction No pericecal inflammatory change No prostatomegaly Bilateral intact Osseous structures intact IMPRESSION: Primary hepatocellular disease with fatty infiltration throughout the liver Cholelithiasis No renal or ureteral calculi, no hydronephrosis No CT findings of bowel obstruction or diverticulitis Dictated By: Saúl Barrett MD Signed By: <Electronically signed by Saúl Barrett MD in OV> 06/15/24 2221 Medications / Prescriptions Medications or Prescriptions considered but not ordered:: none Medication administrations:: Medication Administration History Diazepam (Diazepam 5 Mg Tablet) 10 mg PO X1 ONE Stop: 06/16/24 05:54 Discontinued Medications Diazepam (Diazepam 5 Mg Tablet) 20 mg PO X1 ONE Stop: 06/16/24 03:59 Last Admin: 06/16/24 04:32 Dose: 20 mg Documented By: ТАТЬЯНА Diazepam (Diazepam 5 Mg Tablet) 20 mg PO X1 ONE Stop: 06/16/24 05:33 Last Admin: 06/16/24 05:52 Dose: 20 mg Documented By: ТАТЬЯНА see above Consultations Consultation(s) initiated? (list below): No Diagnosis Differential diagnosis abdominal pain: other (alcohol withdrawal, alcohol ketoacidosis, dehydration, electrolyte abnormality, cirrhosis) Most likely diagnosis given after review of the tests above:: see clinical impression below Admission Indicated Admission indicated?: not indicated Admission Request Was there a request for admission?: No Disposition Plan Disposition Plan: Discharge Discharge Attestation Discharge Attestation: The patient and all family members were given an opportunity to ask questions and understood the discharge instructions. Discharge instructions specifically effects, indications for sooner follow up or return to the emergency department, and the expected course of current diagnosis. Patient condition: Stable Discharge Plan Plan Patient Disposition: HOME (Self Care) Prescriptions/Referrals Prescriptions/Med Rec: No Action chlordiazepoxide HCl 25 mg capsule 25 mg PO BID MDD 2 PRN (Reason: agitation) Qty: 6 0RF Rx Instructions: Take 1 tab every 12 hrs for first 2 days, followed by one tablet daily for following two days thiamine mononitrate (vit B1) [Vitamin B-1 (mononitrate)] 100 mg Tablet 100 mg PO QDAY Qty: 30 0RF ondansetron 4 mg tablet,disintegrating 4 mg PO Q8H PRN (Reason: nausea and vomiting) Qty: 10 0RF ondansetron 4 mg tablet,disintegrating 4 mg PO Q8H PRN (Reason: nausea and vomiting) Qty: 20 0RF Referrals: No Primary/Family,Physician [Primary Care Provider] - In 1 week Problem List Clinical Impression: Alcohol withdrawal, Alcohol abuse, Transaminitis Patient/Caregiver Discharge Instructions Education Materials: Alcohol Addiction, Alcohol Withdrawal: What to Expect, ED Alcohol Abuse Additional Instructions: Stop drinking alcohol, you are already beginning to show signs of permanent damage to your liver. Follow-up with your primary care doctor and or [facility] if you feel ready for alcohol rehabilitation/support. Print Language: Greenlandic Stand Alone Forms: Claire Award Info., Patient Portal Info Letter
[2024-06-16] MEDS: DIAZEPAM 5 MG TABLET 20 MG PO ×2 (04:32→05:52)
[2024-06-16] MEDS: DIAZEPAM 5 MG TABLET 10 MG PO (06:39)
[2024-06-16 06:40] VITALS: BP 123/83; PULSE 67; RESP 18; TEMP 36.8; O2SAT 96
== END 2024-06-16 06:41 | disposition home or self-care (01) ==
PROVIDERS: Nurse Practitioner Family; Emergency Provider Emergency Medicine
DX: F10.139 Alcohol abuse with withdrawal, unspecified (principal); Y90.9 Presence of alcohol in blood, level not specified
CPT/HCPCS: 36415; 74176; 80053; 81001; 83690; 85025; 99284; A9270

== ENCOUNTER 2024-08-10 22:18 | Inpatient (IN) | payer MEDICAID, SELFPAY ==
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
[2024-08-10 22:25] VITALS: BMI 25.0
[2024-08-10 22:26] VITALS: BP 125/88; PULSE 90; RESP 19; TEMP 36.6; O2SAT 96
[2024-08-10] MEDS: ONDANSETRON INJ 2 MG/ML INJ 2 ML 4 MG IVP (22:39)
[2024-08-10] MEDS: SODIUM CHLORIDE 0.9% 250 ML 250 ML 999 ML IV (22:40)
[2024-08-10 22:49] LABS: Basophils # (Auto) 0.0 Thou/mm3 (0.0-0.2); Basophils % (Auto) 1 % (0-2.5); Eosinophils # (Auto) 0.0 Thou/mm3 (0.0-0.5); Eosinophils % (Auto) 1 % (0-10); Hematocrit 43.9 % (41.0-53.0); Hemoglobin 16.1 g/dL (13.5-16.0); Immature Granulocytes Auto 0.00 Thou/mm3 (0.00-0.00); Lymphocytes # (Auto) 4.7 Thou/mm3 (1.0-4.8); Lymphocytes % (Auto) 79 % (10-50); Mean Corpuscular HGB Conc 36.7 g/dl (31.0-37.0); Mean Corpuscular Hemoglobin 34.2 pg (25.0-35.0); Mean Corpuscular Volume 93 fL (80-100); Monocytes # (Auto) 0.3 Thou/mm3 (0.0-0.8); Monocytes % (Auto) 5 % (0-12); Neutrophils # (Auto) 0.9 Thou/mm3 (1.8-7.7); Neutrophils % (Auto) 14 % (37-80); Nucleated Red Blood Cell # 0.00 Thou/mm3 (0.00-0.00); Nucleated Red Blood Cell % 0 /100 WBC (0); Platelet Count 239 Thou/mm3 (140-440); RDW Standard Deviation 43.3 fL (35.1-43.9); Red Blood Count 4.71 Miln/mm3 (4.50-5.90); White Blood Count 6.0 Thou/mm3 (3.8-10.6)
[2024-08-10 23:00] VITALS: BP 127/81; PULSE 88; RESP 16; TEMP 36.8; O2SAT 98
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
[2024-08-10] MEDS: LORazepam 2 MG/ML VIAL IVP (23:26)
[2024-08-10 23:51] LABS: Alanine Aminotransferase 43 U/L (10-49); Albumin, Serum 5.1 gm/dL (3.5-5.0); Albumin/Globulin Ratio 1.5 (1.2-2.2); Alkaline Phosphatase 189 U/L (46-116); Anion Gap 21 (7-16); Aspartate Amino Transferase 106 U/L (0-34); BUN/Creatinine Ratio 6 Ratio (12-20); Bilirubin,Total 0.5 mg/dL (0.3-1.2); Blood Urea Nitrogen < 5 mg/dL (9-23); Calcium 9.0 mg/dL (8.3-10.6); Calcium (Corrected) 9.0 mg/dL (8.5-10.1); Carbon Dioxide 20.7 mMol/L (20.0-31.0); Chloride 103 mMol/L (98-107); Creatinine (Component) 0.9 mg/dL (0.6-1.3); Estimated Creatinine Clearance 111.3 mL/min (>60); Globulin 3.3 gm/dL (2.3-3.5); Glucose 125 mg/dL (74-106); Lipase 42 U/L (12-53); Osmolality,Calculated 286 (275-295); Potassium 3.7 mMol/L (3.4-5.1); Sodium 145 mMol/L (136-145); Total Protein 8.4 gm/dL (5.7-8.2); eGFR > 60 See Note
[2024-08-10 23:58] LABS: Alcohol, Blood Medical 512.9 mg/dL (0-10.0)
[2024-08-11] VITALS (20 sets, daily range): BP systolic 95–134; BP diastolic 62–91; PULSE 39–75; RESP 9–22; TEMP 35.9–36.8; O2SAT 88–100
[2024-08-11] MEDS: LORazepam 2 MG/ML VIAL IVP ×2 (00:11→01:30)
[2024-08-11] MEDS: OCTREOTIDE ACET INJ 1,000 MCG in SODIUM CHLORIDE 0.9% 100 ML 5.1 MCG IV (01:43)
--- NOTE | 2024-08-11 02:10 | PC.NURSE ---
Dispite multiple doses of ativan, Pt continues to try and get out of bed, ask for somthing to eat. pt had small BM that was light brown loose. no obvious blood in stool.
[2024-08-11] MEDS: HALOPERIDOL LACT INJ 5 MG/ML VIAL IV (02:51)
--- NOTE | 2024-08-11 03:36 | ESHP_ITS ---
<Statement entered by Priscila Prasad MD - 08/11/24 06:45> I Priscila Prasad MD reviewed the note and agree with the resident's assessment & plan with exceptions as below. I have personally reviewed labs, imaging, home meds/prior records, examined the patient, formulated and discussed management plan with the IM team. A 29-year-old male with heavy EtOH use presented to ED and noted to have alcohol intoxication with severely elevated EtOH levels. He also reported having episodes of hematemesis and black tarry stools. Admitted for alcohol intoxication with impending withdrawal along with dehydration. Started on IV fluid resuscitation with NS at 125 mL an hour, placed on CIWA protocol with lorazepam. Started on octreotide drip and continue Protonix IV twice daily. GI consult and plan for EGD once withdrawal symptoms improve. Documentation for date of: 08/11/24 HPI History of Present Illness History of present illness: Garcia Liu is a 29-year-old male with no PMH being admitted from the ED after EMS found him lying on the sidewalk with apparent alcohol intoxication. He has been admitted with a similar presentation multiple times prior with the most recent being on 06/16/24. Patient complains that he is puking and pooping blood beginning 2 days ago and says that the last time he vomited was yesterday. Patient was difficult to communicate with at the time of interview due to being seemingly confused and only somewhat understanding of questions posed to him. In the ED, patient had similar complaints of vomiting blood and having bloody diarrhea as well as having generalized pain all over his body. He stated that he drinks alcohol every day and that he had drank today. Per ED note, patient reported hearing and seeing things that were not there as well as feeling that things were crawling around his skin. A CTAP was ordered but due to patient's altered state and agitation it was unable to be taken. GI was consulted and admission of the patient was recommended with octreotide drip and PPI twice daily and for the patient to be placed on NPO. He received 6 mg Ativan to manage his alcohol withdrawal symptoms as well as to pacify him but ended up also receiving 5 mg Haldol due to continued belligerence and agitation s/p Ativan administration per nursing. Patient was admitted for management of his alcohol withdrawal symptoms and possible management and workup for hematemesis and hematochezia. Review of Systems Review of Systems Narrative Review of Systems: General: Denies fevers or chills HEENT: Denies congestion or sore throat Heart: Endorses chest pain. Denies palpitations Lungs: Endorses shortness of breath. Denies cough Abdomen: Endorses abdominal pain and N/V/D. Denies constipation. Genitourinary: Denies frequency, urgency, dysuria, or hematuria Neurology: Denies any changes in vision, weakness or difficulty speaking Review of systems otherwise negative except what is mentioned above. Past Medical History Past Medical History Comments PMH COMMENT: PMH: none PSH: none Medications: none Allergies: none Family Hx: none Social Hx: lives at home with mom, dad, and siblings, works in [employer], does not use any drugs recreationally, drinks everyday but could not say how much Exam Vital Signs Temp Pulse Resp BP Pulse Ox O2 Del Method 97.8 F 90 19 125/88 H 96 Room Air 08/10/24 22:26 08/10/24 22:26 08/10/24 22:26 08/10/24 22:26 08/10/24 22:26 08/10/24 22:26 Narrative Exam Physical Exam: General: Slightly somnolent, in no acute distress. Skin: Warm, dry, intact, no obvious rash. Head: Normocephalic, atraumatic. Eye: Normal conjunctiva, PERRL. Throat: Oral mucosa moist. No obvious lesions in oropharynx. Cardiovascular: Regular rate and rhythm, no murmur, +S1/S2. Respiratory: Lungs are clear to auscultation, respirations unlabored, no crackles, no wheezing. Gastrointestinal: LUQ tenderness to palpation. Soft and non-distended. No guarding or rebound tenderness. Extremities: No edema, no cyanosis, no clubbing. 2+ radial pulse bilaterally, 2+ posterior tibial pulse bilaterally. Neuro: No focal deficits observed. Conversant, moving all extremities. No overt cerebellar signs/incoordination. Psychiatric: Confused, rambling, at times uncooperative. Results: Labs 08/10/24 22:20 08/10/24 22:20 Labs: Short CBC 08/10/24 Range/Units 22:20 WBC 6.0 (3.8-10.6) Thou/mm3 Hgb 16.1 H (13.5-16.0) g/dL Hct 43.9 (41.0-53.0) % Plt Count 239 (140-440) Thou/mm3 [facility] 08/10/24 22:20 Sodium 145 Potassium 3.7 Chloride 103 Carbon Dioxide 20.7 BUN < 5 L Creatinine 0.9 Glucose 125 H Calcium 9.0 Liver Function 08/10/24 Range/Units 22:20 Total Bilirubin 0.5 (0.3-1.2) mg/dL AST 106 H (0-34) U/L ALT 43 (10-49) U/L Alkaline Phosphatase 189 H (46-116) U/L Albumin 5.1 H (3.5-5.0) gm/dL Quality Measures Quality Measures none Medications Home Medications and Allergies Allergies Allergy/AdvReac Type Severity Reaction Status Date / Time No Known Allergies Allergy Verified 08/10/24 22:50 Visit Medications Acetaminophen (Acetaminophen 325 Mg Tablet) 650 mg PO Q6H PRN PRN Reason: PAIN SCALE 1-3 (mild Stop: 09/10/24 02:43 Hydrocodone Bitart/Acetaminophen (Hydrocodone/Apap 5/325 Tablet) 1 tab PO Q6HR PRN PRN Reason: PAIN SCALE 4-10(Mod-Sev Stop: 08/16/24 02:48 Chlordiazepoxide HCl (Chlordiazepoxide Hcl 25 Mg Capsule) 25 mg PO Q6HR APOORVA Stop: 08/12/24 05:59 Folic Acid (Folic Acid 1 Mg Tablet) 1 mg PO BID APOORVA Stop: 08/16/24 08:59 Octreotide Acetate 1,000 mcg/ (Sodium Chloride) 102 mls @ 5.1 mls/hr IV .Q20H ONE; Protocol Stop: 08/11/24 19:52 Last Admin: 08/11/24 01:43 Dose: 50 mcg/hr, 5.1 mls/hr Lactated Ringer's (Lactated Ringers) 1,000 mls @ 75 mls/hr IV .[id number] APOORVA Stop: 09/10/24 02:44 Lorazepam (Lorazepam 2 Mg/Ml Vial) 0.5 mg IV Q2HR PRN PRN Reason: CIWA SCORE 8-13 Stop: 08/16/24 03:16 Lorazepam (Lorazepam 2 Mg/Ml Vial) 1 mg IV Q2HR PRN PRN Reason: CIWA SCORE 14-19 Stop: 08/16/24 03:16 Lorazepam (Lorazepam 2 Mg/Ml Vial) 2 mg IV Q2HR PRN PRN Reason: CIWA SCORE 20-25 Stop: 08/16/24 03:16 Lorazepam (Lorazepam 2 Mg/Ml Vial) 2 mg IVP X1 PRN PRN Reason: Breakthrough Agitation Ondansetron HCl (Ondansetron Inj 2 Mg/Ml Inj 2 Ml) 4 mg IVP Q6H PRN; Protocol PRN Reason: NAUSEA OR VOMITING Stop: 09/10/24 02:43 Pantoprazole Sodium (Pantoprazole Inj 40 Mg Vial) 40 mg IVP BID APOORVA Stop: 09/09/24 23:44 Last Admin: 08/11/24 01:32 Dose: 40 mg Sennosides (Senna Tablet) 1 tab PO QDAY PRN; Protocol PRN Reason: constipation Stop: 09/10/24 02:43 Thiamine HCl (Thiamine 100 Mg Tablet) 100 mg PO BID APOORVA Stop: 08/16/24 08:59 Discontinued Medications Haloperidol Lactate (Haloperidol Lact Inj 5 Mg/Ml Vial) 5 mg IV X1 ONE Stop: 08/11/24 02:18 Last Admin: 08/11/24 02:51 Dose: 5 mg Sodium Chloride (Ns) 250 mls @ 999 mls/hr IV .Q16M ONE Stop: 08/10/24 22:38 Last Infusion: 08/10/24 23:00 Dose: Infused Lorazepam (Lorazepam 2 Mg/Ml Vial) 2 mg IVP X1 ONE Stop: 08/10/24 23:20 Last Admin: 08/10/24 23:26 Dose: 2 mg Lorazepam (Lorazepam 2 Mg/Ml Vial) 2 mg IVP X1 ONE Stop: 08/10/24 23:29 Last Admin: 08/11/24 00:11 Dose: 2 mg Lorazepam (Lorazepam 2 Mg/Ml Vial) 2 mg IVP X1 ONE Stop: 08/11/24 01:11 Last Admin: 08/11/24 01:30 Dose: 2 mg Ondansetron HCl (Ondansetron Inj 2 Mg/Ml Inj 2 Ml) 4 mg IVP X1 ONE; Protocol Stop: 08/10/24 22:22 Last Admin: 08/10/24 22:39 Dose: 4 mg Assessment & Plan Assessment Garcia Liu is a 29-year-old male with no PMH being admitted from the ED after EMS found him lying on the sidewalk with apparent alcohol intoxication. Patient was admitted for management of his alcohol withdrawal symptoms and possible management and workup for hematemesis and hematochezia. #Alcohol withdrawal symptoms and acute alcohol intoxication Upon admission to the ED, patient's blood alcohol level was found to be significantly elevated at 512.9 with symptoms of agitation and possible delirium Lab results reveal an elevated anion gap of 21 (possibly 2/2 lactic acidosis from excessive alcohol consumption) as well as a mixed pattern of liver injury with elevated AST (106), normal ALT (43), and elevated alkaline phosphatase (189) characteristic of alcohol-induced transaminitis Patient has previously been admitted repeatedly with a similar presentation, further strengthening the idea that this presentation is likely to be the major concern during this current visit -Patient has been placed on CIWA protocol for management of alcohol withdrawal symptoms should they arise -Follow up on urine drug screen to check for other substances that may be contributing to patient's altered mental status #Upper GI and lower GI bleed Self-reported by patient but not formally confirmed from observation by any hospital staff Hemoglobin was actually slightly elevated at 16.1, suggesting that patient's possible bleeding, if indeed present, may not be a major concern -Per GI recommendations, patient has been started on octreotide drip as well as PPI BID -Per GI recommendations, patient has been made NPO #Low neutrophil % Lab results showed neutrophil % to be low at 14 (normal: 37-80) while lymphocyte % was high at 79 (normal: 10-50) but overall WBC was normal at 6.0 Currently not an issue of major concern but it is not known at this time why the neutrophil % is low -Continue to monitor lab values #Nausea -Patient is currently NPO -Zofran prn is in place Hospital Management: Disposition: management of alcohol withdrawal symptoms and possible hematemesis and hematochezia Fluids: NS 100 mL/hr Diet: NPO DVT Prophylaxis: SCD CODE STATUS: Full Code I have examined the patient and conferred with my attending, Dr. Prasad, and my senior resident, Dr. Giacomo Juarez, regarding them. -Jose L Yun, PGY-1
[2024-08-11] MEDS: SODIUM CHLORIDE 0.9% 1000 ML 1,000 ML 100 ML IV ×2 (04:45→14:52)
[2024-08-11 04:57] LABS: Basophils # (Auto) 0.0 Thou/mm3 (0.0-0.2); Basophils % (Auto) 1 % (0-2.5); Eosinophils # (Auto) 0.0 Thou/mm3 (0.0-0.5); Eosinophils % (Auto) 1 % (0-10); Hematocrit 41.8 % (41.0-53.0); Hemoglobin 15.0 g/dL (13.5-16.0); Immature Granulocytes Auto 0.00 Thou/mm3 (0.00-0.00); Lymphocytes # (Auto) 1.8 Thou/mm3 (1.0-4.8); Lymphocytes % (Auto) 59 % (10-50); Mean Corpuscular HGB Conc 35.9 g/dl (31.0-37.0); Mean Corpuscular Hemoglobin 34.5 pg (25.0-35.0); Mean Corpuscular Volume 96 fL (80-100); Monocytes # (Auto) 0.3 Thou/mm3 (0.0-0.8); Monocytes % (Auto) 8 % (0-12); Neutrophils # (Auto) 1.0 Thou/mm3 (1.8-7.7); Neutrophils % (Auto) 31 % (37-80); Nucleated Red Blood Cell # 0.00 Thou/mm3 (0.00-0.00); Nucleated Red Blood Cell % 0 /100 WBC (0); Platelet Count 156 Thou/mm3 (140-440); RDW Standard Deviation 45.8 fL (35.1-43.9); Red Blood Count 4.35 Miln/mm3 (4.50-5.90); White Blood Count 3.1 Thou/mm3 (3.8-10.6)
--- NOTE | 2024-08-11 05:08 | PC.NURSE ---
pt is asleep. VS WNL.
--- NOTE | 2024-08-11 05:27 | PC.NURSE ---
since haldol given, pt has been asleep. VS WNL.
[2024-08-11 05:31] LABS: Alanine Aminotransferase 39 U/L (10-49); Albumin, Serum 4.6 gm/dL (3.5-5.0); Albumin/Globulin Ratio 1.5 (1.2-2.2); Alkaline Phosphatase 169 U/L (46-116); Anion Gap 15 (7-16); Aspartate Amino Transferase 101 U/L (0-34); BUN/Creatinine Ratio 6 Ratio (12-20); Bilirubin,Total 0.5 mg/dL (0.3-1.2); Blood Urea Nitrogen < 5 mg/dL (9-23); Calcium 8.3 mg/dL (8.3-10.6); Calcium (Corrected) 8.3 mg/dL (8.5-10.1); Carbon Dioxide 25.7 mMol/L (20.0-31.0); Chloride 107 mMol/L (98-107); Creatinine (Component) 0.8 mg/dL (0.6-1.3); Estimated Creatinine Clearance 125.2 mL/min (>60); Globulin 3.1 gm/dL (2.3-3.5); Glucose 107 mg/dL (74-106); Magnesium 2.1 mg/dL (1.6-2.6); Osmolality,Calculated 291 (275-295); Phosphorous 5.6 mg/dL (2.4-5.1); Potassium 4.1 mMol/L (3.4-5.1); Sodium 148 mMol/L (136-145); Total Protein 7.7 gm/dL (5.7-8.2); eGFR > 60 See Note
--- NOTE | 2024-08-11 08:07 | PC.NURSE ---
report given to Lucero in Tele floor. pt to go to room 278
--- NOTE | 2024-08-11 09:00 | PC.NURSE ---
Patient came to his room, Lethargic, arousable to sternal rub, unable to communicate with staff. [employer] called at 0900 due to bradycardia in the low 40's and failure to awaken. Md at bedside.
--- NOTE | 2024-08-11 09:07 | EKG_ITS ---
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
--- NOTE | 2024-08-11 09:19 | PD.RESEVENT ---
Documentation for date of: 08/11/24 Event Note Event Note: 9:05AM This is a 29-year-old male with pmh pf alcohol abuse admitted from the ED after EMS found him lying on the sidewalk with apparent alcohol intoxication. A rapid response was called for this patient at 9:05am as patient was found to have sinus bradycardia with HR of 38 bpm. Patient was found to be very lethargic and minimally responsive responding to sternal rub only with a GCS of 8. An EKG was done showing sinus bradycardia with HR of 42. Additionally, Troponin, CMP and an ABG were ordered. The ABG and troponin were WNL while the CMP showed hypernatremia (147), elevated AST (116)and hypocalcemia (8.4). A decision was made to hold the patients octreotide drip and he has since stablized. This event note was discussed and revised by my attending Dr. Allen
[2024-08-11 09:43] LABS: Basophils # (Auto) 0.0 Thou/mm3 (0.0-0.2); Basophils % (Auto) 1 % (0-2.5); Eosinophils # (Auto) 0.0 Thou/mm3 (0.0-0.5); Eosinophils % (Auto) 1 % (0-10); Hematocrit 42.7 % (41.0-53.0); Hemoglobin 15.3 g/dL (13.5-16.0); Immature Granulocytes Auto 0.00 Thou/mm3 (0.00-0.00); Lymphocytes # (Auto) 1.7 Thou/mm3 (1.0-4.8); Lymphocytes % (Auto) 57 % (10-50); Mean Corpuscular HGB Conc 35.8 g/dl (31.0-37.0); Mean Corpuscular Hemoglobin 34.7 pg (25.0-35.0); Mean Corpuscular Volume 97 fL (80-100); Monocytes # (Auto) 0.3 Thou/mm3 (0.0-0.8); Monocytes % (Auto) 10 % (0-12); Neutrophils # (Auto) 1.0 Thou/mm3 (1.8-7.7); Neutrophils % (Auto) 32 % (37-80); Nucleated Red Blood Cell # 0.00 Thou/mm3 (0.00-0.00); Nucleated Red Blood Cell % 0 /100 WBC (0); Platelet Count 188 Thou/mm3 (140-440); RDW Standard Deviation 46.5 fL (35.1-43.9); Red Blood Count 4.41 Miln/mm3 (4.50-5.90); White Blood Count 3.0 Thou/mm3 (3.8-10.6)
[2024-08-11 10:12] LABS: Alanine Aminotransferase 42 U/L (10-49); Albumin, Serum 4.6 gm/dL (3.5-5.0); Albumin/Globulin Ratio 1.5 (1.2-2.2); Alkaline Phosphatase 166 U/L (46-116); Anion Gap 14 (7-16); Aspartate Amino Transferase 116 U/L (0-34); BUN/Creatinine Ratio 6 Ratio (12-20); Bilirubin,Total 0.5 mg/dL (0.3-1.2); Blood Urea Nitrogen < 5 mg/dL (9-23); Calcium 8.4 mg/dL (8.3-10.6); Calcium (Corrected) 8.4 mg/dL (8.5-10.1); Carbon Dioxide 26.7 mMol/L (20.0-31.0); Chloride 106 mMol/L (98-107); Creatinine (Component) 0.9 mg/dL (0.6-1.3); Estimated Creatinine Clearance 111.3 mL/min (>60); Globulin 3.1 gm/dL (2.3-3.5); Glucose 130 mg/dL (74-106); Osmolality,Calculated 291 (275-295); Potassium 4.4 mMol/L (3.4-5.1); Sodium 147 mMol/L (136-145); Total Protein 7.7 gm/dL (5.7-8.2); Troponin I < 0.020 ng/mL (0.0-0.045); eGFR > 60 See Note
--- NOTE | 2024-08-11 11:18 | PC.NURSE ---
Admission is limited, pt is not communication at this time, I am unable to verify if patient wants next of kin notified of his admission. Willl continue to monitor patient and speak to him when he is able.
[2024-08-11 13:12] LABS: Base Excess 0 (-3-3); HCO3 26 mEq/L (20-26); Inspired Oxygen, FIO2 21 %; PCO2 45 mmHg (32.0-48.0); PO2 86 mmHg (83-108); pH, Arterial 7.36 (7.35-7.45)
[2024-08-11 13:13] LABS: Allen Test Performed/OK; O2 Saturation 98 % (91-98); Puncture Site Left Radial
--- NOTE | 2024-08-11 14:29 | PD.RESPRO ---
Documentation for date of: 08/11/24 Subjective Subjective Interval history: CC: Alcohol intoxication/withdrawal symptoms Patient is a poor historian Impression:29-year-old male with no PMH being admitted from the ED after EMS found him lying on the sidewalk with apparent alcohol intoxication. He has been admitted with a similar presentation multiple times prior with the most recent being on 06/16/24. Patient complains that he is puking and pooping blood beginning 2 days ago and says that the last time he vomited was yesterday. Patient was difficult to communicate with at the time of interview due to being seemingly confused and only somewhat understanding of questions posed to him. Overnight events: patient had multiple readings of bradycardia with lowest reading being 40 bpm. He also had episodes of bradypnea. Exam Vital Signs Temp Pulse Resp BP Pulse Ox O2 Del Method O2 Flow Rate 98.2 F 40 L 12 114/67 98 Room Air 2 08/11/24 13:18 08/11/24 13:18 08/11/24 13:18 08/11/24 13:18 08/11/24 13:18 08/11/24 12:15 08/11/24 06:58 Narrative Exam General: Patient is extremely lethargic, and only arousable to sternal rub. HEENT: normocephalic atraumatic, sclera are anicteric Cardio: normal S1, and S2 with no abnormal rubs murmurs or gallops. Bradycardia is noted on exam. Peripheral pulses are 2+ with no edema. Pulm: Lungs are clear to auscultation bilaterally with no wheezing, or crackles Abdominal: Bowel sounds auscultated, abdomen is soft with no rigidity or guarding MSK: Unable to assess due to patients lethargy Neuro: Unable to assess due to patients lethargy Objective Labs 08/12/24 05:15 08/12/24 05:15 Labs: Laboratory Results - last 24 hr 08/10/24 08/11/24 08/11/24 22:20 04:36 09:20 WBC 6.0 3.1 L D 3.0 L RBC 4.71 4.35 L 4.41 L Hgb 16.1 H 15.0 15.3 Hct 43.9 41.8 42.7 MCV 93 96 97 MCH 34.2 34.5 34.7 MCHC 36.7 35.9 35.8 RDW Std Deviation 43.3 45.8 H 46.5 H Plt Count 239 156 D 188 D Neut % (Auto) 14 L 31 L 32 L Lymph % (Auto) 79 H 59 H 57 H [place] % (Auto) 5 8 10 Eos % (Auto) 1 1 1 Baso % (Auto) 1 1 1 Neut # (Auto) 0.9 L 1.0 L 1.0 L Lymph # (Auto) 4.7 1.8 1.7 [place] # (Auto) 0.3 0.3 0.3 Eos # (Auto) 0.0 0.0 0.0 Baso # (Auto) 0.0 0.0 0.0 Immature Gran # (Auto) 0.00 0.00 0.00 Absolute Nucleated RBC 0.00 0.00 0.00 Immature Gran % 0 0 0 Nucleated RBC % 0 0 0 Puncture Site ABG pH ABG pCO2 ABG pO2 ABG HCO3 ABG O2 Saturation ABG Base Excess FiO2 Sodium 145 148 H 147 H Potassium 3.7 4.1 4.4 Chloride 103 107 106 Carbon Dioxide 20.7 25.7 26.7 Anion Gap 21 H 15 14 BUN < 5 L < 5 L < 5 L Creatinine 0.9 0.8 0.9 Estim Creat Clear Calc 111.3 125.2 111.3 eGFR > 60 > 60 > 60 BUN/Creatinine Ratio 6 L 6 L 6 L Glucose 125 H 107 H 130 H Calculated Osmolality 286 291 291 Calcium 9.0 8.3 8.4 Corrected Calcium 9.0 8.3 L 8.4 L Phosphorus 5.6 H Magnesium 2.1 Total Bilirubin 0.5 0.5 0.5 AST 106 H 101 H 116 H ALT 43 39 42 Alkaline Phosphatase 189 H 169 H D 166 H Troponin I < 0.020 Total Protein 8.4 H 7.7 7.7 Albumin 5.1 H 4.6 D 4.6 Globulin 3.3 3.1 3.1 Albumin/Globulin Ratio 1.5 1.5 1.5 Lipase 42 Ethyl Alcohol 512.9 H* 08/11/24 11:26 WBC RBC Hgb Hct MCV MCH MCHC RDW Std Deviation Plt Count Neut % (Auto) Lymph % (Auto) [place] % (Auto) Eos % (Auto) Baso % (Auto) Neut # (Auto) Lymph # (Auto) [place] # (Auto) Eos # (Auto) Baso # (Auto) Immature Gran # (Auto) Absolute Nucleated RBC Immature Gran % Nucleated RBC % Puncture Site Left Radial ABG pH 7.36 ABG pCO2 45 ABG pO2 86 ABG HCO3 26 ABG O2 Saturation 98 ABG Base Excess 0 FiO2 21 Sodium Potassium Chloride Carbon Dioxide Anion Gap BUN Creatinine Estim Creat Clear Calc eGFR BUN/Creatinine Ratio Glucose Calculated Osmolality Calcium Corrected Calcium Phosphorus Magnesium Total Bilirubin AST ALT Alkaline Phosphatase Troponin I Total Protein Albumin Globulin Albumin/Globulin Ratio Lipase Ethyl Alcohol ABG Interpretation ABG results: 08/11/24 11:26 ABG pH 7.36 ABG pCO2 45 ABG pO2 86 ABG HCO3 26 ABG O2 Saturation 98 ABG Base Excess 0 Quality Measures Quality Measures none Assessment & Plan Assessment Current Active Medications: Generic Name Dose Route Start Last Admin Trade Name Freq PRN Reason Stop Dose Admin Acetaminophen 650 mg 08/11/24 02:44 Acetaminophen 325 Mg Tablet PO 09/10/24 02:43 Q6H PRN PAIN SCALE 1-3 (mild Hydrocodone Bitart/Acetaminophen 1 tab 08/11/24 02:49 Hydrocodone/Apap 5/325 Tablet PO 08/16/24 02:48 Q6HR PRN PAIN SCALE 4-10(Mod-Sev Folic Acid 1 mg 08/11/24 09:00 08/11/24 11:23 Folic Acid 1 Mg Tablet PO 08/16/24 08:59 Not Given BID APOORVA Sodium Chloride 1,000 mls @ 100 mls/hr 08/11/24 04:19 08/11/24 04:45 Ns IV 09/10/24 04:18 100 mls/hr .Q10H APOORVA Administration Octreotide Acetate 1,000 mcg/ 102 mls @ 5.1 mls/hr 08/11/24 09:30 Sodium Chloride IV 08/12/24 05:29 .Q20H ONE Protocol 50 MCG/HR Lorazepam 0.5 mg 08/11/24 03:17 Lorazepam 2 Mg/Ml Vial IV 08/16/24 03:16 Q2HR PRN CIWA SCORE 8-13 Lorazepam 1 mg 08/11/24 03:17 Lorazepam 2 Mg/Ml Vial IV 08/16/24 03:16 Q2HR PRN CIWA SCORE 14-19 Lorazepam 2 mg 08/11/24 03:17 Lorazepam 2 Mg/Ml Vial IV 08/16/24 03:16 Q2HR PRN CIWA SCORE 20-25 Lorazepam 2 mg 08/11/24 03:17 Lorazepam 2 Mg/Ml Vial IVP X1 PRN Breakthrough Agitation Ondansetron HCl 4 mg 08/11/24 02:44 Ondansetron Inj 2 Mg/Ml Inj 2 Ml IVP 09/10/24 02:43 Q6H PRN NAUSEA OR VOMITING Protocol Pantoprazole Sodium 40 mg 08/10/24 23:45 08/11/24 11:25 Pantoprazole Inj 40 Mg Vial IVP 09/09/24 23:44 40 mg BID APOORVA Administration Sennosides 1 tab 08/11/24 02:44 Senna Tablet PO 09/10/24 02:43 QDAY PRN constipation Protocol Thiamine HCl 100 mg 08/11/24 09:00 08/11/24 11:23 Thiamine 100 Mg Tablet PO 08/16/24 08:59 Not Given BID APOORVA Plan Assessment Garcia Liu is a 29-year-old male with no PMH being admitted from the ED after EMS found him lying on the sidewalk with apparent alcohol intoxication. Patient was admitted for management of his alcohol withdrawal symptoms and possible management and workup for hematemesis and hematochezia. Since admission he has had multiple episodes of bradycardia, and was found to have mild neutropenia, hypernatremia, hypocalcemia, alcoholic transaminitis. #Alcohol withdrawal symptoms and acute alcohol intoxication Upon admission to the ED, patient's blood alcohol level was found to be significantly elevated at 512.9 with symptoms of agitation and possible delirium Lab results reveal an elevated anion gap of 21 (possibly due to lactic acidosis from excessive alcohol consumption) as well as an elevated AST (106), normal ALT (43), and elevated alkaline phosphatase (189) characteristic of alcohol-induced transaminitis AST/ALT > 2 (2.4) Patient has previously been admitted repeatedly with a similar presentation, further strengthening the idea that this presentation is likely to be the major concern during this current visit -CIWA score per my assessment was 13, but limited due to lack of patient engagement. plan: -Patient has been placed on CIWA protocol for management of alcohol withdrawal symptoms should they arise -Patient is being treated with Ativan 0.5mg prn with a symptom driven therapy utilizing ciwa asessment -D5 NS 75ml/hr IV -Folic acid 1mg PO BID, Thiamine 100mg PO BID -Follow up on urine drug screen to check for other substances that may be contributing to patient's altered mental status as patient has hx of positive substances on urine tox #Bradycardia -Patient was lethargic and arousable to sternal rub only this morning -patient had multiple readings of bradycardia overnight -Patient was found to have HR 38 this morning inciting a rapid response team to be called. Plan: -hold Octreotide drip -patient has been stable since discontinuing -continue to monitor patients heart rate and respiratory rates closely #Upper GI and lower GI bleed #Primary hepatocellular disease with fatty infiltration -Self-reported by patient but not formally confirmed from observation by any hospital staff -Hemoglobin was actually slightly elevated at 16.1, suggesting that patient's possible bleeding, if indeed present, may not be a major concern -CT abdomen pelvis 06/15/2024: Primary hepatocellular disease with fatty infiltration throughout the liver Plan: -Per GI recommendations, patient had been started on octreotide drip as well as PPI BID -We are currently holding octreotide drip as patient has had multiple episodes of bradycardia with tele readings showing a low of 38bpm. -Per GI recommendations, patient can have clear liquid diet till 12 midnight Serial CBC -Per GI Consent obtained for fiberoptic esophagogastroduodenoscopy with possible biopsy possible therapeutic intervention under intravenous moderate sedation for tomorrow morning #Mild Neutropenia Patient has WBC count of 3.0, Neutrophil count of 1.0 L indicating mild neutropenia Patient is afebrile Plan: -Continue to monitor lab values #Nausea -Patient is currently NPO Plan: -Zofran prn is in place Health Maintenance: Disposition: Telemetry Unit DVT Prophylaxis: Sequential compression Device GI Prophylaxis: Pantoprazole 40mg BID Diet:Clear liquid diet till midnight CODE STATUS: DNR Case and Plan discussed with my attending physician, Dr Allen. Zach Verdin, OMS-IV Attending Provider Attestation/Addendum Patient seen and examined. He was admitted for alcohol intoxication. Patient developed bradycardia. Octreotide drip stopped, will continue to monitor. Patient's hemoglobin and hematocrit are stable. The patient is normotensive. He has no hypoxia. I discussed with and supervised the resident physician who took care of this patient. I agree with the assessment and plan as above.
[2024-08-11] MEDS: DEXTROSE 5%-0.45% NS 1,000 ML 75 ML IV (17:59)
--- NOTE | 2024-08-11 18:15 | PD.IMCONS ---
HPI Data of Consult Requesting Physician: Priscila Prasad MD Primary Care Provider: Balwinder Humphrey MD Consult Narrative Reason for consult: Hematemesis History of present illness: 29-year-old male who has a history of EtOH abuse admitted with hematemesis after call from the emergency room team He had also few symptoms of alcohol withdrawal as seeing things which were not there Presenting hemoglobin hematocrit was excellent at 16.0 and 43.9 which has gone down to 15.3 and 42.7 I am not sure how much she is really bleeding He also complained of hematochezia Total bilirubin 0.5 AST ALT 116 and 42 and alk phos 166 05/08/2024 patient had an MRCP which showed normal gallbladder normal common hepatic duct and common bile duct 06/15/[address] scan of the abdomen pelvis without contrast which showed fatty liver versus hepatocellular disease Cholelithiasis cc:: cc: Priscila Prasad MD Review of Systems Review of Systems Narrative Review of Systems: Patient is a poor historian review of system is not reliable Past Medical History Surgical History OTHER SURGICAL HX: As in the history of present illness Meds Home Medications and Allergies Allergies Allergy/AdvReac Type Severity Reaction Status Date / Time No Known Allergies Allergy Verified 08/10/24 22:50 Exam Vital Signs Temp Pulse Resp BP Pulse Ox O2 Del Method O2 Flow Rate 97.7 F 55 L 13 111/65 99 Room Air 2 08/11/24 16:00 08/11/24 16:00 08/11/24 16:00 08/11/24 16:00 08/11/24 16:00 08/11/24 16:00 08/11/24 06:58 Routine Respiratory Exam Comments: Normal to auscultation Routine Abdominal Exam Comments: Soft nontender Results Labs 08/11/24 09:20 08/11/24 09:20 Labs: Short CBC 08/10/24 08/11/24 08/11/24 Range/Units 22:20 04:36 09:20 WBC 6.0 3.1 L D 3.0 L (3.8-10.6) Thou/mm3 Hgb 16.1 H 15.0 15.3 (13.5-16.0) g/dL Hct 43.9 41.8 42.7 (41.0-53.0) % Plt Count 239 156 D 188 D (140-440) Thou/mm3 BMP 08/10/24 08/11/24 08/11/24 22:20 04:36 09:20 Sodium 145 148 H 147 H Potassium 3.7 4.1 4.4 Chloride 103 107 106 Carbon Dioxide 20.7 25.7 26.7 BUN < 5 L < 5 L < 5 L Creatinine 0.9 0.8 0.9 Glucose 125 H 107 H 130 H Calcium 9.0 8.3 8.4 Cardiac Enzymes 08/11/24 Range/Units 09:20 Troponin I < 0.020 (0.0-0.045) ng/mL Liver Function 08/10/24 08/11/24 08/11/24 Range/Units 22:20 04:36 09:20 Total Bilirubin 0.5 0.5 0.5 (0.3-1.2) mg/dL AST 106 H 101 H 116 H (0-34) U/L ALT 43 39 42 (10-49) U/L Alkaline Phosphatase 189 H 169 H D 166 H (46-116) U/L Albumin 5.1 H 4.6 D 4.6 (3.5-5.0) gm/dL ABG Interpretation ABG results: 08/11/24 11:26 ABG pH 7.36 ABG pCO2 45 ABG pO2 86 ABG HCO3 26 ABG O2 Saturation 98 ABG Base Excess 0 Assessment and Plan Additional Assessment & Plan Additional Plan: # Hematemesis in the setting of alcohol abuse and alcoholic liver disease Plan Continue octreotide infusion and IV Protonix Serial CBC Consent obtained for fiberoptic esophagogastroduodenoscopy with possible biopsy possible therapeutic intervention under intravenous moderate sedation for tomorrow morning Patient can have clear liquid diet till 12 midnight Advised complete abstinence from alcohol Monitor alcohol withdrawal Thank you once again for the opportunity to participate in care of this patient
[2024-08-11 20:57] LABS: Collection Type, Urine Voided; Squamous Epithelial Cell,Urine 0 /hpf (0-5)
[2024-08-11 21:01] LABS: Bilirubin,Urine Negative (Negative); Blood,Urine Negative (Negative); Clarity,Urine Clear (Clear/Hazy); Color,Urine Lt-Yellow (Lt Yel-Yel); Glucose, Urine Negative (Negative); Hyaline Casts,Urine < 1 /hpf (0-1); Ketones,Urine Negative (Negative); Leukocyte Esterase,Urine Negative (Negative); Nitrite,Urine Negative (Negative); PH,Urine 5.0 (5.0-7.0); Protein,Urine Negative (Neg - Trace); RBC,Urine < 1 /hpf (0-3); Specific Gravity,Urine 1.013 (1.001-1.035); Urobilinogen,Urine Negative mg/dL (0.0-1.0); WBC,Urine 1 /hpf (0-5)
[2024-08-11] MEDS: THIAMINE 100 MG TABLET PO (21:22)
[2024-08-11] MEDS: FOLIC ACID 1 MG TABLET PO (21:22)
[2024-08-12] VITALS (13 sets, daily range): BP systolic 114–149; BP diastolic 67–95; PULSE 43–67; RESP 12–28; TEMP 35.9–36.4; O2SAT 95–100
[2024-08-12] MEDS: ONDANSETRON INJ 2 MG/ML INJ 2 ML 4 MG IVP (04:47)
[2024-08-12 06:12] LABS: Basophils # (Auto) 0.0 Thou/mm3 (0.0-0.2); Basophils % (Auto) 1 % (0-2.5); Eosinophils # (Auto) 0.0 Thou/mm3 (0.0-0.5); Eosinophils % (Auto) 1 % (0-10); Hematocrit 41.4 % (41.0-53.0); Hemoglobin 14.6 g/dL (13.5-16.0); Immature Granulocytes Auto 0.01 Thou/mm3 (0.00-0.00); Lymphocytes # (Auto) 1.1 Thou/mm3 (1.0-4.8); Lymphocytes % (Auto) 24 % (10-50); Mean Corpuscular HGB Conc 35.3 g/dl (31.0-37.0); Mean Corpuscular Hemoglobin 35.0 pg (25.0-35.0); Mean Corpuscular Volume 99 fL (80-100); Monocytes # (Auto) 0.5 Thou/mm3 (0.0-0.8); Monocytes % (Auto) 10 % (0-12); Neutrophils # (Auto) 2.9 Thou/mm3 (1.8-7.7); Neutrophils % (Auto) 65 % (37-80); Nucleated Red Blood Cell # 0.00 Thou/mm3 (0.00-0.00); Nucleated Red Blood Cell % 0 /100 WBC (0); Platelet Count 124 Thou/mm3 (140-440); RDW Standard Deviation 46.1 fL (35.1-43.9); Red Blood Count 4.17 Miln/mm3 (4.50-5.90); White Blood Count 4.5 Thou/mm3 (3.8-10.6)
[2024-08-12 06:36] LABS: INR 1.0 (0.9-1.3); Partial Thromboplastin Time 32.5 Seconds (22.0-36.0); Prothrombin Time 11.4 Seconds (9.0-12.2)
[2024-08-12 07:29] LABS: Alanine Aminotransferase 34 U/L (10-49); Albumin, Serum 4.0 gm/dL (3.5-5.0); Albumin/Globulin Ratio 1.4 (1.2-2.2); Alkaline Phosphatase 148 U/L (46-116); Anion Gap 15 (7-16); Aspartate Amino Transferase 74 U/L (0-34); BUN/Creatinine Ratio 6 Ratio (12-20); Bilirubin,Total 1.6 mg/dL (0.3-1.2); Blood Urea Nitrogen < 5 mg/dL (9-23); Calcium 8.8 mg/dL (8.3-10.6); Calcium (Corrected) 8.8 mg/dL (8.5-10.1); Carbon Dioxide 22.3 mMol/L (20.0-31.0); Chloride 103 mMol/L (98-107); Creatinine (Component) 0.8 mg/dL (0.6-1.3); Estimated Creatinine Clearance 110.3 mL/min (>60); Globulin 2.9 gm/dL (2.3-3.5); Glucose 112 mg/dL (74-106); Magnesium 1.8 mg/dL (1.6-2.6); Osmolality,Calculated 277 (275-295); Phosphorous 3.3 mg/dL (2.4-5.1); Potassium 3.9 mMol/L (3.4-5.1); Sodium 140 mMol/L (136-145); Total Protein 6.9 gm/dL (5.7-8.2); eGFR > 60 See Note
--- NOTE | 2024-08-12 07:38 | ESPR_ITS ---
<Statement entered by Diana Mendoza MD - 08/13/24 20:41> Summary, 29-year-old male with PMHx alcohol use disorder, admitted for alcohol withdrawal, abdominal pain, hemoptysis and hematochezia. Hemoglobin remained within normal limits. PPI and OCTREOTIDE were initiated. EGD showed grade 1 esophageal varices, and significant hemorrhagic gastritis. GI recommended continuing endocrine chart, which was discontinued overnight secondary to bradycardia, which appears sinus on EKG. His symptoms, including abdominal pain overall improved. Labs significant for TB 1.6, mild transaminitis. The abdomen showed primary hepatocellular disease with fatty infiltrate of the liver, cholelithiasis, no findings of obstruction or diverticulitis. CIWA remain elevated, around 12. Will discharge one CIWA improved. Case was discussed with attending physician. Diana Mendoza DO PGY II This document was transcribed using voice recognition technology. Minor inaccuracies may be present. Documentation for date of: 08/13/24 Subjective Subjective Interval history: Interval history: CC: Alcohol intoxication/withdrawal symptoms Patient seen and examined at bedside today. Patient is a poor historian. No acute events overnight. Pt feels mildly anxious. Admits to mild nausea, denies vomiting. Admits to moderate agitation, difficulty sitting still or going to sleep as well as presence of moderate headache. Denies blood in stool or vomitus. Admits to itching all over his body. Denies paroxysmal sweats. Denies tactile, auditory, or visual disturbance. Does admit to noises sounding harsh to his ears. Verbalizes self, the month, and place he is at. Relative to yesterday, pt is more aware of his surroundings and can maintain a focused conversation with the provider in the room. Overnight events: patient had multiple readings of bradycardia with lowest reading being 47 bpm and his octreotide was held for known side effect of low HR. CIWA =11. Exam Vital Signs Temp Pulse Resp BP Pulse Ox O2 Del Method O2 Flow Rate 96.7 F L 53 L 12 114/76 98 Room Air 2 08/12/24 04:00 08/12/24 04:00 08/12/24 04:00 08/12/24 04:00 08/12/24 04:00 08/12/24 04:00 08/11/24 06:58 Narrative Exam General: Patient is somnolent, yet arousable to verbal command. HEENT: normocephalic atraumatic, sclera are anicteric Cardio: RRR. normal S1, and S2 with no abnormal rubs murmurs or gallops. Peripheral pulses are 2+ with no edema. Pulm: Lungs are clear to auscultation bilaterally with no wheezing, or crackles Abdominal: Bowel sounds auscultated, abdomen is soft with no rigidity or guarding MSK: Unable to assess due to patients lethargy Neuro: Unable to assess due to patients lethargy Objective Labs 08/13/24 05:19 08/13/24 05:19 Labs: Laboratory Results - last 24 hr 08/10/24 08/11/24 08/11/24 20:25 09:20 11:26 WBC 3.0 L RBC 4.41 L Hgb 15.3 Hct 42.7 MCV 97 MCH 34.7 MCHC 35.8 RDW Std Deviation 46.5 H Plt Count 188 D Neut % (Auto) 32 L Lymph % (Auto) 57 H [place] % (Auto) 10 Eos % (Auto) 1 Baso % (Auto) 1 Neut # (Auto) 1.0 L Lymph # (Auto) 1.7 [place] # (Auto) 0.3 Eos # (Auto) 0.0 Baso # (Auto) 0.0 Immature Gran # (Auto) 0.00 Absolute Nucleated RBC 0.00 Immature Gran % 0 Nucleated RBC % 0 PT INR APTT Puncture Site Left Radial ABG pH 7.36 ABG pCO2 45 ABG pO2 86 ABG HCO3 26 ABG O2 Saturation 98 ABG Base Excess 0 FiO2 21 Sodium 147 H Potassium 4.4 Chloride 106 Carbon Dioxide 26.7 Anion Gap 14 BUN < 5 L Creatinine 0.9 Estim Creat Clear Calc 111.3 eGFR > 60 BUN/Creatinine Ratio 6 L Glucose 130 H Calculated Osmolality 291 Calcium 8.4 Corrected Calcium 8.4 L Phosphorus Magnesium Total Bilirubin 0.5 AST 116 H ALT 42 Alkaline Phosphatase 166 H Troponin I < 0.020 Total Protein 7.7 Albumin 4.6 Globulin 3.1 Albumin/Globulin Ratio 1.5 Ur Collection Type Voided Urine Color Lt-Yellow Urine Clarity Clear Urine pH 5.0 Ur Specific [place] 1.013 Urine Protein Negative Urine Glucose (UA) Negative Urine Ketones Negative Urine Blood Negative Urine Nitrite Negative Urine Bilirubin Negative Urine Urobilinogen (Auto) Negative Ur Leukocyte Esterase Negative Urine RBC < 1 Urine WBC 1 Ur Squamous Epith Cells 0 Urine Bacteria None Hyaline Casts < 1 08/12/24 05:15 WBC 4.5 D RBC 4.17 L Hgb 14.6 Hct 41.4 MCV 99 MCH 35.0 MCHC 35.3 RDW Std Deviation 46.1 H Plt Count 124 L D Neut % (Auto) 65 Lymph % (Auto) 24 [place] % (Auto) 10 Eos % (Auto) 1 Baso % (Auto) 1 Neut # (Auto) 2.9 Lymph # (Auto) 1.1 [place] # (Auto) 0.5 Eos # (Auto) 0.0 Baso # (Auto) 0.0 Immature Gran # (Auto) 0.01 H Absolute Nucleated RBC 0.00 Immature Gran % 0 Nucleated RBC % 0 PT 11.4 INR 1.0 APTT 32.5 Puncture Site ABG pH ABG pCO2 ABG pO2 ABG HCO3 ABG O2 Saturation ABG Base Excess FiO2 Sodium 140 Potassium 3.9 D Chloride 103 Carbon Dioxide 22.3 Anion Gap 15 BUN < 5 L Creatinine 0.8 Estim Creat Clear Calc 110.3 eGFR > 60 BUN/Creatinine Ratio 6 L Glucose 112 H Calculated Osmolality 277 Calcium 8.8 Corrected Calcium 8.8 Phosphorus 3.3 Magnesium 1.8 Total Bilirubin 1.6 H D AST 74 H ALT 34 Alkaline Phosphatase 148 H Troponin I Total Protein 6.9 Albumin 4.0 D Globulin 2.9 Albumin/Globulin Ratio 1.4 Ur Collection Type Urine Color Urine Clarity Urine pH Ur Specific [place] Urine Protein Urine Glucose (UA) Urine Ketones Urine Blood Urine Nitrite Urine Bilirubin Urine Urobilinogen (Auto) Ur Leukocyte Esterase Urine RBC Urine WBC Ur Squamous Epith Cells Urine Bacteria Hyaline Casts ABG Interpretation ABG results: 08/11/24 11:26 ABG pH 7.36 ABG pCO2 45 ABG pO2 86 ABG HCO3 26 ABG O2 Saturation 98 ABG Base Excess 0 Quality Measures Quality Measures none Assessment & Plan Assessment Current Active Medications: Generic Name Dose Route Start Last Admin Trade Name Freq PRN Reason Stop Dose Admin Acetaminophen 650 mg 08/11/24 02:44 Acetaminophen 325 Mg Tablet PO 09/10/24 02:43 Q6H PRN PAIN SCALE 1-3 (mild Hydrocodone Bitart/Acetaminophen 1 tab 08/11/24 02:49 Hydrocodone/Apap 5/325 Tablet PO 08/16/24 02:48 Q6HR PRN PAIN SCALE 4-10(Mod-Sev Al Hydrox/Mg Hydrox/Simethicone 30 ml 08/11/24 17:30 Mg Hyd/Al Hyd/Julian (Maalox Reg) Susp 30 Ml Udc PO 09/10/24 17:29 Q4HR PRN UPSET STOMACH/INDIGESTION Folic Acid 1 mg 08/11/24 09:00 08/11/24 21:22 Folic Acid 1 Mg Tablet PO 08/16/24 08:59 1 mg BID APOORVA Administration Dextrose/Sodium Chloride 1,000 mls @ 75 mls/hr 08/11/24 18:00 08/11/24 17:59 D5-1/2ns IV 09/10/24 17:59 75 mls/hr .[id number] APOORVA Administration Lorazepam 0.5 mg 08/11/24 03:17 Lorazepam 2 Mg/Ml Vial IV 08/16/24 03:16 Q2HR PRN CIWA SCORE 8-13 Lorazepam 1 mg 08/11/24 03:17 Lorazepam 2 Mg/Ml Vial IV 08/16/24 03:16 Q2HR PRN CIWA SCORE 14-19 Lorazepam 2 mg 08/11/24 03:17 Lorazepam 2 Mg/Ml Vial IV 08/16/24 03:16 Q2HR PRN CIWA SCORE 20-25 Lorazepam 2 mg 08/11/24 03:17 Lorazepam 2 Mg/Ml Vial IVP X1 PRN Breakthrough Agitation Ondansetron HCl 4 mg 08/11/24 02:44 08/12/24 04:47 Ondansetron Inj 2 Mg/Ml Inj 2 Ml IVP 09/10/24 02:43 4 mg Q6H PRN Administration NAUSEA OR VOMITING Protocol Pantoprazole Sodium 40 mg 08/10/24 23:45 08/11/24 21:23 Pantoprazole Inj 40 Mg Vial IVP 09/09/24 23:44 40 mg BID APOORVA Administration Sennosides 1 tab 08/11/24 02:44 Senna Tablet PO 09/10/24 02:43 QDAY PRN constipation Protocol Thiamine HCl 100 mg 08/11/24 09:00 08/11/24 21:22 Thiamine 100 Mg Tablet PO 08/16/24 08:59 100 mg BID APOORVA Administration Plan Plan Assessment Garcia Adenalfonzo Liu is a 29-year-old male with no PMH being admitted from the ED after EMS found him lying on the sidewalk with apparent alcohol intoxication. Patient was admitted for management of his alcohol withdrawal symptoms and possible management and workup for hematemesis and hematochezia. Since admission he has had multiple episodes of bradycardia, and was found to have mild neutropenia, hypernatremia, hypocalcemia, alcoholic transaminitis. #Alcohol withdrawal symptoms and acute alcohol intoxication Upon admission to the ED, patient's blood alcohol level was found to be significantly elevated at 512.9 with symptoms of agitation and possible delirium (08/10 Admission). Initial Lab results reveal an elevated anion gap of 21 (possibly due to lactic acidosis from excessive alcohol consumption) as well as an elevated AST (106), normal ALT (43), and elevated alkaline phosphatase (189) characteristic of alcohol-induced transaminitis. AST 101, 74, 93, ALT 42, 34, 35, ALP 166, 148, 142, TB 1.5 downtrending. AST/ALT > 2 (2.4) Patient has previously been admitted repeatedly with a similar presentation, further strengthening the idea that this presentation is likely to be the major concern during this current visit -CIWA score per my assessment was 13, but limited due to lack of patient engagement (08/11). CIWA score 12 on 08/12, 11 on 08/13 -Patient received lorazepam 1mg in AM 08/12 for control of agitation. -Patient continues to experience agitation, headaches, nausea, and auditory heightening. plan: -Patient has been placed on CIWA protocol for management of alcohol withdrawal symptoms should they arise -Patient is being treated with Ativan 0.5mg prn with a symptom driven therapy utilizing ciwa asessment. -D5 NS 75ml/hr IV -Folic acid 1mg PO BID, Thiamine 100mg PO BID -Follow up on urine drug screen to check for other substances that may be contributing to patient's altered mental status as patient has hx of positive substances on urine tox. -start PO gabapentin 100mg for control of withdrawal symptom -PO Tylenol 650mg PRN headache -PO Percoset 5/325 PRN headache -PO Dania 10/325 PRN headache #Bradycardia -patient had multiple readings of bradycardia overnight with a low of 42 -EKG showed sinus rhythem. Plan: -hold Octreotide drip -patient has been stable since discontinuing -continue to monitor patients heart rate and respiratory rates closely #Upper GI and lower GI bleed #Primary hepatocellular disease with fatty infiltration -Self-reported by patient but not formally confirmed from observation by any hospital staff -Hemoglobin was actually slightly elevated at 16.1, suggesting that patient's possible bleeding, if indeed present, may not be a major concern -CT abdomen pelvis 06/15/2024: Primary hepatocellular disease with fatty infiltration throughout the liver -GI Dr Tello was consulted for evaluation of previous complaint of hematemesis 2/2 alcohol abuse and alcholic liver disease. Planned to undergo EGD with possible biopsy and therapeutic intervention under moderate sedation. Pt on clear liquid diet in preparation for the procedure. -EGD (08/12) revealed: Grade 1 esophageal varices. Gastritis, characterized by erythema. Normal examined duodenum. No specimens collected. Plan: -Per GI recommendations, patient had been started on octreotide drip as well as PPI BID -We are currently holding octreotide drip as patient has had multiple episodes of bradycardia with tele readings showing a low of 38bpm. -Serial CBC #Mild Neutropenia (resolved) Patient had neutrophil count of 1.0 and WBC 3.9 on 08/11 which normalized on subsequent labs. Patient afebrile Plan: -Zofran prn is in place Health Maintanance: PPx GI: IVP Protonix 40mg bid PPx DVT: Diet: Low Sodium code status: Full Case was discussed with attending physician, Dr. Allen, and senior resident Dr Mendoza. Zak Abebe, PGY I Attending Provider Attestation/Addendum 29-year-old male patient with alcoholism admitted for EtOH intoxication patient had EGD showing grade 1 esophageal varices and gastritis.. Continue to monitor hemoglobin and hematocrit. Discussed with housestaff
[2024-08-12] MEDS: MG HYD/AL HYD/SIME (Maalox Reg) SUSP 30 ML UDC PO (08:10)
[2024-08-12] MEDS: THIAMINE 100 MG TABLET PO ×2 (08:11→20:18)
[2024-08-12] MEDS: HYDROcodone/APAP 5/325 TABLET 1 TAB PO ×2 (08:11→22:08)
[2024-08-12] MEDS: DEXTROSE 5%-0.45% NS 1,000 ML 75 ML IV ×2 (08:11→21:20)
[2024-08-12] MEDS: FOLIC ACID 1 MG TABLET PO ×2 (08:11→20:18)
[2024-08-12] MEDS: LORazepam 2 MG/ML VIAL 1 MG IV (08:23)
--- NOTE | 2024-08-12 11:21 | PC.SS ---
Outbound Sales Advisor (ANJUM) Karen attempted to complete assessment. Patient was deeply asleep.
[2024-08-12] MEDS: OCTREOTIDE ACET INJ 1,000 MCG in SODIUM CHLORIDE 0.9% 100 ML 5.1 MCG IV (19:45)
--- NOTE | 2024-08-12 20:00 | PC.NURSE ---
Called hospitalist, spoke to Resident Dr Beasley. Made aware CIWA 10 and HR in the 30s, current HR 35 fluctuates between 35-40s; BP 125/76. Also informed , sandostatin drip was restarted [address] Beasley stop sandostatin IV infusion due to low rate and may administer Ativan as ordered per CIWA protocol. Per Dr. Beasley Ativan should not affect HR.
[2024-08-12] MEDS: LORazepam 2 MG/ML VIAL 0.5 MG IV (20:18)
[2024-08-13] VITALS (7 sets, daily range): BP systolic 114–121; BP diastolic 69–78; PULSE 42–83; RESP 15–20; TEMP 36.1–36.7; O2SAT 96–99
[2024-08-13] MEDS: LORazepam 2 MG/ML VIAL 0.5 MG IV ×2 (01:03→20:43)
[2024-08-13] MEDS: HYDROcodone/APAP 5/325 TABLET 1 TAB PO ×2 (05:23→15:30)
[2024-08-13 06:15] LABS: Basophils # (Auto) 0.0 Thou/mm3 (0.0-0.2); Basophils % (Auto) 1 % (0-2.5); Eosinophils # (Auto) 0.1 Thou/mm3 (0.0-0.5); Eosinophils % (Auto) 2 % (0-10); Hematocrit 41.5 % (41.0-53.0); Hemoglobin 14.2 g/dL (13.5-16.0); Immature Granulocytes Auto 0.01 Thou/mm3 (0.00-0.00); Lymphocytes # (Auto) 1.2 Thou/mm3 (1.0-4.8); Lymphocytes % (Auto) 32 % (10-50); Mean Corpuscular HGB Conc 34.2 g/dl (31.0-37.0); Mean Corpuscular Hemoglobin 34.1 pg (25.0-35.0); Mean Corpuscular Volume 100 fL (80-100); Monocytes # (Auto) 0.4 Thou/mm3 (0.0-0.8); Monocytes % (Auto) 9 % (0-12); Neutrophils # (Auto) 2.2 Thou/mm3 (1.8-7.7); Neutrophils % (Auto) 56 % (37-80); Nucleated Red Blood Cell # 0.00 Thou/mm3 (0.00-0.00); Nucleated Red Blood Cell % 0 /100 WBC (0); Platelet Count 117 Thou/mm3 (140-440); RDW Standard Deviation 45.0 fL (35.1-43.9); Red Blood Count 4.16 Miln/mm3 (4.50-5.90); White Blood Count 3.9 Thou/mm3 (3.8-10.6)
[2024-08-13 06:31] LABS: INR 1.0 (0.9-1.3); Prothrombin Time 11.3 Seconds (9.0-12.2)
[2024-08-13 06:54] LABS: Alanine Aminotransferase 35 U/L (10-49); Albumin, Serum 4.1 gm/dL (3.5-5.0); Albumin/Globulin Ratio 1.5 (1.2-2.2); Alkaline Phosphatase 142 U/L (46-116); Anion Gap 11 (7-16); Aspartate Amino Transferase 93 U/L (0-34); BUN/Creatinine Ratio 6 Ratio (12-20); Bilirubin,Total 1.5 mg/dL (0.3-1.2); Blood Urea Nitrogen < 5 mg/dL (9-23); Calcium 8.9 mg/dL (8.3-10.6); Calcium (Corrected) 8.9 mg/dL (8.5-10.1); Carbon Dioxide 26.9 mMol/L (20.0-31.0); Chloride 104 mMol/L (98-107); Creatinine (Component) 0.9 mg/dL (0.6-1.3); Estimated Creatinine Clearance 98.1 mL/min (>60); Globulin 2.8 gm/dL (2.3-3.5); Glucose 103 mg/dL (74-106); Magnesium 1.8 mg/dL (1.6-2.6); Osmolality,Calculated 280 (275-295); Phosphorous 3.7 mg/dL (2.4-5.1); Potassium 3.7 mMol/L (3.4-5.1); Sodium 142 mMol/L (136-145); Total Protein 6.9 gm/dL (5.7-8.2); eGFR > 60 See Note
[2024-08-13] MEDS: THIAMINE 100 MG TABLET PO ×2 (09:29→20:44)
[2024-08-13] MEDS: LORazepam 2 MG/ML VIAL IVP (09:29)
[2024-08-13] MEDS: FOLIC ACID 1 MG TABLET PO ×2 (09:29→20:44)
[2024-08-13] MEDS: GABAPENTIN 100 MG CAPSULE PO (11:52)
[2024-08-13] MEDS: DEXTROSE 5%-0.45% NS 1,000 ML 75 ML IV (11:52)
--- NOTE | 2024-08-13 15:44 | PC.SS ---
Rounding: Pt receiving Octreriotide, poss DC 08/14 Home
--- NOTE | 2024-08-13 19:04 | ESPR_ITS ---
Documentation for date of: 08/13/24 Subjective Subjective Interval history: Hemoglobin hematocrit 14.2 and 41.5 Exam Vital Signs Temp Pulse Resp BP Pulse Ox O2 Del Method O2 Flow Rate 97.6 F 76 20 115/77 98 Room Air 3 08/13/24 16:00 08/13/24 16:00 08/13/24 16:00 08/13/24 16:00 08/13/24 16:00 08/13/24 16:00 08/12/24 16:55 Objective Labs 08/13/24 05:19 08/13/24 05:19 Labs: Laboratory Results - last 24 hr 08/13/24 05:19 WBC 3.9 RBC 4.16 L Hgb 14.2 Hct 41.5 MCV 100 MCH 34.1 MCHC 34.2 RDW Std Deviation 45.0 H Plt Count 117 L Neut % (Auto) 56 Lymph % (Auto) 32 Wallace % (Auto) 9 Eos % (Auto) 2 Baso % (Auto) 1 Neut # (Auto) 2.2 Lymph # (Auto) 1.2 Wallace # (Auto) 0.4 Eos # (Auto) 0.1 Baso # (Auto) 0.0 Immature Gran # (Auto) 0.01 H Absolute Nucleated RBC 0.00 Immature Gran % 0 Nucleated RBC % 0 PT 11.3 INR 1.0 Sodium 142 Potassium 3.7 Chloride 104 Carbon Dioxide 26.9 Anion Gap 11 BUN < 5 L Creatinine 0.9 Estim Creat Clear Calc 98.1 eGFR > 60 BUN/Creatinine Ratio 6 L Glucose 103 Calculated Osmolality 280 Calcium 8.9 Corrected Calcium 8.9 Phosphorus 3.7 Magnesium 1.8 Total Bilirubin 1.5 H AST 93 H ALT 35 Alkaline Phosphatase 142 H Total Protein 6.9 Albumin 4.1 Globulin 2.8 Albumin/Globulin Ratio 1.5 Impressions Impression: Gastritis 1+ esophageal varices continue current management ABG Interpretation ABG results: 08/11/24 11:26 ABG pH 7.36 ABG pCO2 45 ABG pO2 86 ABG HCO3 26 ABG O2 Saturation 98 ABG Base Excess 0 Assessment & Plan A&P Narrative # Hematemesis in the setting of alcohol abuse and alcoholic liver disease Plan Continue octreotide infusion and IV Protonix Serial CBC Consent obtained for fiberoptic esophagogastroduodenoscopy with possible biopsy possible therapeutic intervention under intravenous moderate sedation for tomorrow morning Patient can have clear liquid diet till 12 midnight Advised complete abstinence from alcohol Monitor alcohol withdrawal Thank you once again for the opportunity to participate in care of this patient Time Spent With Patient Time: Total time spent is greater than 50% in coordination of care (as documented) at patient's floor/unit and/or counseling patient:
[2024-08-14] VITALS: PULSE 61
[2024-08-14] MEDS: LORazepam 2 MG/ML VIAL 1 MG IV ×3 (00:21→13:22)
[2024-08-14 04:00] VITALS: BP 121/75; PULSE 57; PULSE 63; RESP 16; TEMP 36.4; O2SAT 98
[2024-08-14] MEDS: DEXTROSE 5%-0.45% NS 1,000 ML 75 ML IV (05:18)
[2024-08-14 06:18] LABS: Basophils # (Auto) 0.0 Thou/mm3 (0.0-0.2); Basophils % (Auto) 1 % (0-2.5); Eosinophils # (Auto) 0.1 Thou/mm3 (0.0-0.5); Eosinophils % (Auto) 1 % (0-10); Hematocrit 40.1 % (41.0-53.0); Hemoglobin 14.3 g/dL (13.5-16.0); Immature Granulocytes Auto 0.00 Thou/mm3 (0.00-0.00); Lymphocytes # (Auto) 1.1 Thou/mm3 (1.0-4.8); Lymphocytes % (Auto) 25 % (10-50); Mean Corpuscular HGB Conc 35.7 g/dl (31.0-37.0); Mean Corpuscular Hemoglobin 35.0 pg (25.0-35.0); Mean Corpuscular Volume 98 fL (80-100); Monocytes # (Auto) 0.4 Thou/mm3 (0.0-0.8); Monocytes % (Auto) 9 % (0-12); Neutrophils # (Auto) 2.8 Thou/mm3 (1.8-7.7); Neutrophils % (Auto) 64 % (37-80); Nucleated Red Blood Cell # 0.00 Thou/mm3 (0.00-0.00); Nucleated Red Blood Cell % 0 /100 WBC (0); Platelet Count 124 Thou/mm3 (140-440); RDW Standard Deviation 43.8 fL (35.1-43.9); Red Blood Count 4.09 Miln/mm3 (4.50-5.90); White Blood Count 4.4 Thou/mm3 (3.8-10.6)
[2024-08-14 06:29] LABS: INR 1.0 (0.9-1.3); Prothrombin Time 11.3 Seconds (9.0-12.2)
[2024-08-14 06:52] LABS: Alanine Aminotransferase 51 U/L (10-49); Albumin, Serum 4.3 gm/dL (3.5-5.0); Albumin/Globulin Ratio 1.5 (1.2-2.2); Alkaline Phosphatase 149 U/L (46-116); Anion Gap 12 (7-16); Aspartate Amino Transferase 111 U/L (0-34); BUN/Creatinine Ratio 6 Ratio (12-20); Bilirubin,Total 1.0 mg/dL (0.3-1.2); Blood Urea Nitrogen < 5 mg/dL (9-23); Calcium 9.1 mg/dL (8.3-10.6); Calcium (Corrected) 9.1 mg/dL (8.5-10.1); Carbon Dioxide 26.8 mMol/L (20.0-31.0); Chloride 101 mMol/L (98-107); Creatinine (Component) 0.8 mg/dL (0.6-1.3); Estimated Creatinine Clearance 110.3 mL/min (>60); Globulin 2.9 gm/dL (2.3-3.5); Glucose 101 mg/dL (74-106); Magnesium 1.5 mg/dL (1.6-2.6); Osmolality,Calculated 276 (275-295); Phosphorous 4.5 mg/dL (2.4-5.1); Potassium 3.4 mMol/L (3.4-5.1); Sodium 140 mMol/L (136-145); Total Protein 7.2 gm/dL (5.7-8.2); eGFR > 60 See Note
[2024-08-14 08:00] VITALS: BP 132/95; PULSE 49; PULSE 54; RESP 12; TEMP 36.3; O2SAT 98
[2024-08-14] MEDS: GABAPENTIN 100 MG CAPSULE PO (08:03)
[2024-08-14] MEDS: THIAMINE 100 MG TABLET PO (08:03)
[2024-08-14] MEDS: FOLIC ACID 1 MG TABLET PO (08:03)
[2024-08-14] MEDS: Magnesium Sulfate 4 GM Ivpb 4 GM/50 ML BAG IV (09:13)
[2024-08-14 12:00] VITALS: BP 122/83; PULSE 57; RESP 14; TEMP 36.2; O2SAT 99
[2024-08-14 13:11] LABS: Lipase 44 U/L (12-53)
--- NOTE | 2024-08-14 14:48 | PC.NURSE ---
Cierra Rollins called by [facility] due to patient wanting to leave hospital and becoming verbally aggressive towards staff regarding going home. Dr. Meyers at bedside, speaking with pt about risk and consequences that may happen if pt chooses to leave AMA. Pt is alert and oriented verbalized understanding risks and rrelease of liability from [facility] if he chose to leave. Pt agreed that he will sign AMA form and go home. AMA form signed and pt ambulated with staff downstairs.
--- NOTE | 2024-08-14 21:30 | ESDS_ITS ---
Planned Discharge Date 08/14/24 DS: Providers Provider Date of admission: 08/11/24 02:35 Primary care physician: Balwinder Humphrey MD Admitting Provider: Priscila Prasad MD Attending Provider on Admission: No Shea MD Consults: 08/10/24 23:28 Consult to Gastroenterology Stat Comment: Consulting Provider: Virgilio Tello Attending Provider on DC: No Shea MD Discharging Provider: Zak Abebe DO PGY 1 DS: Diagnosis Problem List Completed Was Problem List Reviewed/Reconciled?: Yes Hospital Course Hospital Course Hospital course: Garcia Liu is a 29-year-old male with no PMH being admitted from the ED after EMS found him lying on the sidewalk with apparent alcohol intoxication. Patient was admitted for management of his alcohol withdrawal symptoms and possible management and workup for hematemesis and hematochezia. Since admission he has had multiple episodes of bradycardia, and was found to have mild neutropenia, electrolyte abnormalities, and alcoholic transaminitis. During his stay at the hospital, patient's original tremers improved, he regained much of his cognitive ability and awareness, yet at the time of discharge the patient was still experiencing headaches, nausea, heightened tactile/visual sense. His CIWA score had been improving day by day and was down to 14 on the day of his leave, yet not low enough for him to be safely discharged from hospital. We provided the patient with several treatment options, including continued management for alcohol withdrawal and possible transfer to a facility for more intensive alcohol use disorder treatment. We also discussed the risks of leaving AMA, which include but are not limited to: Recurrent alcohol withdrawal symptoms, potentially leading to delirium tremens (DTs), seizures, or even , electrolyte imbalances that could lead to arrhythmias or other life- threatening complications, increased risk of further alcohol-related health complications in the absence of continued treatment.or even . The patient was fully informed of these risks and the potential consequences of discontinuing care, ANOX4. However, after discussing his options, he chose to leave the hospital AMA, declining further treatment. Instructions: The patient was discharged AMA with instructions for follow-up care, including outpatient alcohol treatment, monitoring for withdrawal symptoms, and seeking immediate medical attention should his symptoms worsen. We emphasized the importance of seeking help for alcohol use disorder and managing his medical condition appropriately. Imaging: CT abdomen pelvis 06/15/2024: Primary hepatocellular disease with fatty infiltration throughout the liver -EGD (08/12) revealed: Grade 1 esophageal varices. Gastritis, characterized by erythema. Normal examined duodenum. No specimens collected. Admission Diagnoses: #Alcohol withdrawal symptoms and acute alcohol intoxication #Bradycardia #Upper GI and lower GI bleed #Primary hepatocellular disease with fatty infiltration #Mild Neutropenia Case was discussed with attending physician, Dr. Shea, and senior resident Dr Mendoza. Zak Abebe DO PGY I Time Spent with Patient Time attestation: Total time spent providing and/or coordinating discharge services: Time spent: Less than 30 minutes Exam Vital Signs Temp Pulse Resp BP Pulse Ox O2 Del Method O2 Flow Rate 97.2 F 57 L 14 122/83 99 Room Air 3 08/14/24 12:00 08/14/24 12:00 08/14/24 12:00 08/14/24 12:00 08/14/24 12:00 08/14/24 12:00 08/12/24 16:55 Narrative Exam General: WDWN male. A&Ox4 HEENT: normocephalic atraumatic, sclera are anicteric Cardio: RRR. normal S1, and S2 with no abnormal rubs murmurs or gallops. Peripheral pulses are 2+ with no edema. Pulm: Lungs are clear to auscultation bilaterally with no wheezing, or crackles Abdominal: Bowel sounds auscultated, abdomen is soft with no rigidity or guarding Musculoskeletal: No swelling, moving all 4 extremities with FROM Discharge Plan Plan Patient Disposition: Left Against Medical Advice Prescriptions/Referrals Prescriptions/Med Rec: No Action No Known Home Medications Referrals: Balwinder Humphrey MD [Primary Care Provider] - Patient/Caregiver Discharge Instructions Education Materials: Addiction Ask These Questions, Addiction: Getting Help, Addiction: Your Treatment Options, Addiction Recovery Counseling Print Language: Citizen Of [place] Quality Discharge Quality Measures VTE prophylaxis MD Attestestation MD Attestation I attest that I was physically present for the evaluation, physical examination, lab and imaging review of the patient with the residents. I discussed the case with the residents and agree with the findings and plans of care as documented above. No Shea MD
--- NOTE | 2024-08-15 00:01 | ESPR_ITS ---
Documentation for date of: 08/15/24 Subjective Subjective Interval history: Late entry for the note Case discussed with internal medicine team okay to discharge patient home Hemoglobin hematocrit stable upper endoscopy has shown 1+ esophageal varices and gastritis Exam Vital Signs Temp Pulse Resp BP Pulse Ox O2 Del Method O2 Flow Rate 97.2 F 57 L 14 122/83 99 Room Air 3 08/14/24 12:00 08/14/24 12:00 08/14/24 12:00 08/14/24 12:00 08/14/24 12:00 08/14/24 12:00 08/12/24 16:55 Objective Labs 08/14/24 05:06 08/14/24 05:06 Labs: Laboratory Results - last 24 hr 08/14/24 05:06 WBC 4.4 RBC 4.09 L Hgb 14.3 Hct 40.1 L MCV 98 MCH 35.0 MCHC 35.7 RDW Std Deviation 43.8 Plt Count 124 L Neut % (Auto) 64 Lymph % (Auto) 25 [place] % (Auto) 9 Eos % (Auto) 1 Baso % (Auto) 1 Neut # (Auto) 2.8 Lymph # (Auto) 1.1 [place] # (Auto) 0.4 Eos # (Auto) 0.1 Baso # (Auto) 0.0 Immature Gran # (Auto) 0.00 Absolute Nucleated RBC 0.00 Immature Gran % 0 Nucleated RBC % 0 PT 11.3 INR 1.0 Sodium 140 Potassium 3.4 Chloride 101 Carbon Dioxide 26.8 Anion Gap 12 BUN < 5 L Creatinine 0.8 Estim Creat Clear Calc 110.3 eGFR > 60 BUN/Creatinine Ratio 6 L Glucose 101 Calculated Osmolality 276 Calcium 9.1 Corrected Calcium 9.1 Phosphorus 4.5 Magnesium 1.5 L Total Bilirubin 1.0 D AST 111 H ALT 51 H Alkaline Phosphatase 149 H Total Protein 7.2 Albumin 4.3 Globulin 2.9 Albumin/Globulin Ratio 1.5 Lipase 44 Impressions Impression: Gastritis 1+ esophageal varices Okay to discharge patient home with with PPI for 30 days ABG Interpretation ABG results: 08/11/24 11:26 ABG pH 7.36 ABG pCO2 45 ABG pO2 86 ABG HCO3 26 ABG O2 Saturation 98 ABG Base Excess 0 Assessment & Plan A&P Narrative # Hematemesis in the setting of alcohol abuse and alcoholic liver disease Plan Continue octreotide infusion and IV Protonix Serial CBC Consent obtained for fiberoptic esophagogastroduodenoscopy with possible biopsy possible therapeutic intervention under intravenous moderate sedation for tomorrow morning Patient can have clear liquid diet till 12 midnight Advised complete abstinence from alcohol Monitor alcohol withdrawal Thank you once again for the opportunity to participate in care of this patient Time Spent With Patient Time: Total time spent is greater than 50% in coordination of care (as documented) at patient's floor/unit and/or counseling patient:
--- NOTE | 2024-08-20 18:31 | PD.RESPRO ---
Documentation for date of: 08/20/24 Subjective Subjective Interval history: Patient seen and examined at bedside today. Patient is a poor historian. No acute events overnight. Pt feels mildly anxious. Admits to mild nausea, denies vomiting. Admits to moderate agitation, difficulty sitting still or going to sleep as well as presence of moderate headache. Denies blood in stool or vomitus. Admits to itching all over his body. Denies paroxysmal sweats. Denies tactile, auditory, or visual disturbance. Does admit to noises sounding harsh to his ears. Verbalizes self, the month, and place he is at. Relative to yesterday, pt is more aware of his surroundings and can maintain a focused conversation with the provider in the room. Exam Vital Signs Temp Pulse Resp BP Pulse Ox O2 Del Method O2 Flow Rate 97.2 F 57 L 14 122/83 99 Room Air 3 08/14/24 12:00 08/14/24 12:00 08/14/24 12:00 08/14/24 12:00 08/14/24 12:00 08/14/24 12:00 08/12/24 16:55 Narrative Exam General: Patient is somnolent, yet arousable to verbal command. HEENT: normocephalic atraumatic, sclera are anicteric Cardio: RRR. normal S1, and S2 with no abnormal rubs murmurs or gallops. Peripheral pulses are 2+ with no edema. Pulm: Lungs are clear to auscultation bilaterally with no wheezing, or crackles Abdominal: Bowel sounds auscultated, abdomen is soft with no rigidity or guarding MSK: Unable to assess due to patients lethargy Neuro: Unable to assess due to patients lethargy Objective Labs 08/14/24 05:06 08/14/24 05:06 ABG Interpretation ABG results: 08/11/24 11:26 ABG pH 7.36 ABG pCO2 45 ABG pO2 86 ABG HCO3 26 ABG O2 Saturation 98 ABG Base Excess 0 Quality Measures Quality Measures VTE prophylaxis Assessment & Plan Assessment Current Active Medications: Generic Name Dose Route Start Last Admin Trade Name Freq PRN Reason Stop Dose Admin Acetaminophen 650 mg 08/11/24 02:44 Acetaminophen 325 Mg Tablet PO 09/10/24 02:43 Q6H PRN PAIN SCALE 1-3 (mild Hydrocodone Bitart/Acetaminophen 1 tab 08/11/24 02:49 Hydrocodone/Apap 5/325 Tablet PO 08/16/24 02:48 Q6HR PRN PAIN SCALE 4-10(Mod-Sev Al Hydrox/Mg Hydrox/Simethicone 30 ml 08/11/24 17:30 Mg Hyd/Al Hyd/Julian (Maalox Reg) Susp 30 Ml Udc PO 09/10/24 17:29 Q4HR PRN UPSET STOMACH/INDIGESTION Folic Acid 1 mg 08/11/24 09:00 08/11/24 21:22 Folic Acid 1 Mg Tablet PO 08/16/24 08:59 1 mg BID APOORVA Administration Dextrose/Sodium Chloride 1,000 mls @ 75 mls/hr 08/11/24 18:00 08/11/24 17:59 D5-1/2ns IV 09/10/24 17:59 75 mls/hr .[id number] APOORVA Administration Lorazepam 0.5 mg 08/11/24 03:17 Lorazepam 2 Mg/Ml Vial IV 08/16/24 03:16 Q2HR PRN CIWA SCORE 8-13 Lorazepam 1 mg 08/11/24 03:17 Lorazepam 2 Mg/Ml Vial IV 08/16/24 03:16 Q2HR PRN CIWA SCORE 14-19 Lorazepam 2 mg 08/11/24 03:17 Lorazepam 2 Mg/Ml Vial IV 08/16/24 03:16 Q2HR PRN CIWA SCORE 20-25 Lorazepam 2 mg 08/11/24 03:17 Lorazepam 2 Mg/Ml Vial IVP X1 PRN Breakthrough Agitation Ondansetron HCl 4 mg 08/11/24 02:44 08/12/24 04:47 Ondansetron Inj 2 Mg/Ml Inj 2 Ml IVP 09/10/24 02:43 4 mg Q6H PRN Administration NAUSEA OR VOMITING Protocol Pantoprazole Sodium 40 mg 08/10/24 23:45 08/11/24 21:23 Pantoprazole Inj 40 Mg Vial IVP 09/09/24 23:44 40 mg BID APOORVA Administration Sennosides 1 tab 08/11/24 02:44 Senna Tablet PO 09/10/24 02:43 QDAY PRN constipation Protocol Thiamine HCl 100 mg 08/11/24 09:00 08/11/24 21:22 Thiamine 100 Mg Tablet PO 08/16/24 08:59 100 mg BID APOORVA Administration Plan Plan Assessment Garcia Liu is a 29-year-old male with no PMH being admitted from the ED after EMS found him lying on the sidewalk with apparent alcohol intoxication. Patient was admitted for management of his alcohol withdrawal symptoms and possible management and workup for hematemesis and hematochezia. Since admission he has had multiple episodes of bradycardia, and was found to have mild neutropenia, hypernatremia, hypocalcemia, alcoholic transaminitis. #Alcohol withdrawal symptoms and acute alcohol intoxication Upon admission to the ED, patient's blood alcohol level was found to be significantly elevated at 512.9 with symptoms of agitation and possible delirium (08/10 Admission). Initial Lab results reveal an elevated anion gap of 21 (possibly due to lactic acidosis from excessive alcohol consumption) as well as an elevated AST (106), normal ALT (43), and elevated alkaline phosphatase (189) characteristic of alcohol-induced transaminitis. AST 101, 74, 93, ALT 42, 34, 35, ALP 166, 148, 142, TB 1.5 downtrending. AST/ALT > 2 (2.4) Patient has previously been admitted repeatedly with a similar presentation, further strengthening the idea that this presentation is likely to be the major concern during this current visit -CIWA score per my assessment was 13, but limited due to lack of patient engagement (08/11). CIWA score 12 on 08/12, 11 on 08/13 -Patient received lorazepam 1mg in AM 08/12 for control of agitation. -Patient continues to experience agitation, headaches, nausea, and auditory heightening. plan: -Patient has been placed on CIWA protocol for management of alcohol withdrawal symptoms should they arise -Patient is being treated with Ativan 0.5mg prn with a symptom driven therapy utilizing ciwa asessment. -D5 NS 75ml/hr IV -Folic acid 1mg PO BID, Thiamine 100mg PO BID -Follow up on urine drug screen to check for other substances that may be contributing to patient's altered mental status as patient has hx of positive substances on urine tox. -start PO gabapentin 100mg for control of withdrawal symptom -PO Tylenol 650mg PRN headache -PO Percoset 5/325 PRN headache -PO [place] 10/325 PRN headache #Bradycardia -patient had multiple readings of bradycardia overnight with a low of 42 -EKG showed sinus rhythem. Plan: -hold Octreotide drip -patient has been stable since discontinuing -continue to monitor patients heart rate and respiratory rates closely #Upper GI and lower GI bleed #Primary hepatocellular disease with fatty infiltration -Self-reported by patient but not formally confirmed from observation by any hospital staff -Hemoglobin was actually slightly elevated at 16.1, suggesting that patient's possible bleeding, if indeed present, may not be a major concern -CT abdomen pelvis 06/15/2024: Primary hepatocellular disease with fatty infiltration throughout the liver -GI Dr Tello was consulted for evaluation of previous complaint of hematemesis 2/2 alcohol abuse and alcholic liver disease. Planned to undergo EGD with possible biopsy and therapeutic intervention under moderate sedation. Pt on clear liquid diet in preparation for the procedure. -EGD (08/12) revealed: Grade 1 esophageal varices. Gastritis, characterized by erythema. Normal examined duodenum. No specimens collected. Plan: -Per GI recommendations, patient had been started on octreotide drip as well as PPI BID -We are currently holding octreotide drip as patient has had multiple episodes of bradycardia with tele readings showing a low of 38bpm. -Serial CBC #Mild Neutropenia (resolved) Patient had neutrophil count of 1.0 and WBC 3.9 on 08/11 which normalized on subsequent labs. Patient afebrile Plan: -Zofran prn is in place Health Maintanance: PPx GI: IVP Protonix 40mg bid PPx DVT: Diet: Low Sodium code status: Full Case was discussed with attending physician, Dr. Allen, and senior resident Dr Mendoza. Zak Abebe, PGY I Attending Provider Attestation/Addendum 29-year-old male patient with alcoholism admitted for EtOH intoxication patient had EGD showing grade 1 esophageal varices and gastritis.. Continue to monitor hemoglobin and hematocrit. Discussed with housestaff
== END 2024-08-14 14:00 | disposition left against medical advice (07) | DRG 770 ==
LOC: SERX 08-11 01:38 → SERHOLD 08-11 05:56 → S2NX 08-12 09:17 → SERHOLD 08-12 19:26
PROVIDERS: Physician Assistant Medical; Specialist; Admitting Provider Student in an Organized Health Care Education/Training Program; Emergency Provider Emergency Medicine; PCP Family Medicine; Visit Provider Student in an Organized Health Care Education/Training Program
PROC: 0DJ08ZZ Inspection of Upper Intestinal Tract, Via Natural or Artificial Opening Endoscopic (ICD-10-PCS; CPT 43239; principal; 2024-08-12 16:15)
DX: F10.139 Alcohol abuse with withdrawal, unspecified (principal); F10.129 Alcohol abuse with intoxication, unspecified; K92.0 Hematemesis; E86.0 Dehydration; D70.9 Neutropenia, unspecified; E83.51 Hypocalcemia; I85.10 Secondary esophageal varices without bleeding; K29.71 Gastritis, unspecified, with bleeding; K70.9 Alcoholic liver disease, unspecified; K80.20 Calculus of gallbladder without cholecystitis without obstruction; E87.0 Hyperosmolality and hypernatremia; K76.0 Fatty (change of) liver, not elsewhere classified; Z53.29 Procedure and treatment not carried out because of patient's decision for other reasons; Z66 Do not resuscitate
CPT/HCPCS: 36415; 36600; 80053; 80307; 80320; 81001; 82803; 83690; 83735; 84100; 84484; 85025; 85610; 85730; 87081; 93005; 96374; 96375; 96376; 99285; J1200; J1630; J2060; J2250; J2354; J2405; J2470; J3010; J3475; J7030; J7042; J7050; A9270; G0480

== ENCOUNTER 2024-08-15 00:49 | Inpatient (IN) | payer MEDICAID, SELFPAY ==
[2024-08-15 00:57] VITALS: BP 112/64; PULSE 108; RESP 20; TEMP 37; O2SAT 96
--- NOTE | 2024-08-15 01:12 | EDNOTE_ITS ---
ED Alcohol RME/HPI General Chief Complaint: Abdominal Pain Stated Complaint: ALCOHOL WITHDRAWAL Time Seen by Provider: 08/15/24 01:12 Arrival date/time: 08/15/24 00:49 RME / HPI RME / HPI narrative: This section includes all my notes and documentations, including HPI, PE, and ED course. Jonathan Blackmon MD HPI: 29-year-old male here with possible alcohol withdrawal. History of heavy alcohol daily for years. For about 5 days when he was admitted here on 08/10/24 with possible GI bleeding and alcohol withdrawal. Upper endoscopy showed grade 1 esophageal varices and gastritis. He left AGAINST MEDICAL ADVICE yesterday. Currently, he reports severe shaking and tactile and visual hallucinations. With severe nausea and abdominal pain. No other complaints. ROS: All negative except as documented in HPI. Physical Exam: General: No acute distress. Tremors noted. Eyes: Conjunctivae and lids clear. EOMI. PERRL. ENT: No nasal congestion. Neck: Supple. Heart: Sinus tachycardia noted. Lungs: No respiratory distress. Good air movement. No rhonchi, wheezing, rales. Abdomen: Soft , obvious tenderness. Normal bowel sounds. No distension. No rebound or guarding. Back: No CVA tenderness. Legs: No clubbing, cyanosis, edema. Skin: Warm and dry. Neuro: Cranial Nerves II-XII grossly intact. No peripheral motor deficits. I reviewed EMS notes. I reviewed all diagnostic test results: Blood tests and urine tests remarkable for AST 125, ALT 64, ammonia 41. Covid/Influenza: Negative. At this point, diagnoses include: Alcohol withdrawal. Treatment here included: IVF, Ativan 2 mg, Zofran 4 mg, Pepcid 20 mg, Protonix 80 mg. Slow improvement noted. 0237: I discussed the case with our hospitalist. About the presentation and exam and diagnostics and treatments here. And need of further care in the hospital. Will accept the patient. Jonathan Blackmon MD Last drink: Unknown Chronic alcohol use: Yes Previous visits for alcohol intoxication: Yes Related Data Home Medications ?Medication ?Instructions ?Recorded ?Confirmed No Known Home Medications 08/12/24 0708/01 Allergies Allergy/AdvReac Type Severity Reaction Status Date / Time No Known Allergies Allergy Verified 08/10/24 22:50 Review of Systems Review of Systems ROS Unobtainable: unobtainable due to mental status Past Medical History Social History ALCOHOL: Current ALCOHOL FREQUENCY: 3 or More Drinks per Day ALCOHOL LAST INTAKE: Unknown ED Exam Narrative Physical exam: Refer to HPI Course Quality Measures none Orders Category Date Time Status Admit to Inpatient Status Routine Admission 08/15/24 02:53 Active Patient Condition Routine Admission 08/15/24 02:53 Ordered Activity as Tolerated Routine Care 08/15/24 02:55 Ordered Bedside COVID-19 Antigen Test NOW Care 08/15/24 01:15 Active Bedside Influenza A&B Antigen Test NOW Care 08/15/24 01:15 Completed COVID-19 Screening Questionnaire NOW Care 08/15/24 02:49 Active Continuous Pulse Oximetry NOW Care 08/15/24 02:53 Active Decision to Admit X1 Care 08/15/24 02:49 Active Neuro Check Q4H Care 08/15/24 02:53 Active Notify provider NEEDED Care 08/15/24 02:53 Active Obtain weight daily Care 08/15/24 02:55 Active Saline [Insert IV] NOW Care 08/15/24 01:15 Active Sequential Compression Device QSHIFT Care 08/15/24 02:53 Active Consult to Gastroenterology Stat Cons 08/15/24 02:57 Ordered Diet Clear Liquid Diet 08/15/24 Breakfast Active Acetaminophen Stat Lab 08/15/24 01:25 Completed Alcohol, Blood Medical Stat Lab 08/15/24 01:25 Completed Ammonia Stat Lab 08/15/24 01:25 Completed Amylase Stat Lab 08/15/24 01:25 Completed Bilirubin,Direct Stat Lab 08/15/24 01:25 Completed Blood Culture (Lab) Stat Lab 08/15/24 01:33 Received CBC AM DRAW Lab 08/15/24 05:00 Ordered CBC AM DRAW Lab 08/16/24 05:00 Ordered CBC AM DRAW Lab 08/17/24 05:00 Ordered CBC Stat Lab 08/15/24 01:25 Completed CMP [Comprehensive Metabolic Panel] Stat Lab 08/15/24 01:25 Completed CRP [C-Reactive Protein] Stat Lab 08/15/24 01:25 Completed Comprehensive Metabolic Panel AM DRAW Lab 08/15/24 05:00 Ordered Comprehensive Metabolic Panel AM DRAW Lab 08/16/24 05:00 Ordered Comprehensive Metabolic Panel AM DRAW Lab 08/17/24 05:00 Ordered Drug Screen,Urine Stat Lab 08/15/24 02:14 Completed ESR [Sed Rate (ESR)] Stat Lab 08/15/24 01:25 Completed Free T4 (Free Thyroxine) Stat Lab 08/15/24 01:25 Completed Lactate (Lactic Acid) Stat Lab 08/15/24 01:25 Completed Lipase Stat Lab 08/15/24 01:25 Completed Magnesium Stat Lab 08/15/24 01:25 Completed PT [Prothrombin Time with INR] Stat Lab 08/15/24 01:25 Completed PTT [Partial Thromboplastin Time] Stat Lab 08/15/24 01:25 Completed Procalcitonin Stat Lab 08/15/24 01:25 Completed Salicylate Stat Lab 08/15/24 01:25 Completed TSH [Thyroid Stimulating Hormone] Stat Lab 08/15/24 01:25 Completed Acetaminophen Tab [Tylenol Tab] Med 08/15/24 02:53 Active 650 mg PO Q6H PRN Famotidine Inj [Pepcid Inj] Med 08/15/24 01:15 Discontinued 20 mg IVP X1 ONE Folic Acid Med 08/15/24 09:00 Active 1 mg PO BID LORazepam [Ativan Inj] Med 08/15/24 02:53 Active 1 mg IV Q2HR PRN LORazepam [Ativan Inj] Med 08/15/24 02:53 Active 2 mg IV Q2HR PRN LORazepam [Ativan Inj] Med 08/15/24 01:15 Discontinued 2 mg IVP X1 ONE LORazepam [Ativan] Med 08/15/24 02:53 Active 0.5 mg PO Q4HR PRN LORazepam [Ativan] Med 08/15/24 02:53 Active 1 mg PO Q4HR PRN LORazepam [Ativan] Med 08/15/24 02:53 Active 2 mg PO Q4HR PRN Ondansetron Inj [Zofran Inj] Med 08/15/24 02:53 Active 4 mg IVP Q6H PRN Ondansetron Inj [Zofran Inj] Med 08/15/24 01:15 Discontinued 4 mg IVP X1 ONE Pantoprazole Inj [Protonix Inj] Med 08/15/24 09:00 Active 40 mg IVP Q12HR Pantoprazole Inj [Protonix Inj] Med 08/15/24 01:15 Discontinued 80 mg IVP X1 ONE Sodium Chloride 0.9% 1000 ml [Ns] 1,000 ml Med 08/15/24 01:15 Discontinued IV 999 mls/hr Thiamine [Vitamin B-1] Med 08/15/24 09:00 Active 100 mg PO BID Code Status Routine Oth 08/15/24 02:53 Ordered Referral Linen Manager NOW SS 08/15/24 03:16 Active Vital Signs Vital signs: Vital Signs Temperature 98.6 F 08/15/24 00:57 Pulse Rate 108 H 08/15/24 00:57 Respiratory Rate 20 08/15/24 00:57 Blood Pressure 112/64 08/15/24 00:57 Pulse Oximetry (%) 96 08/15/24 00:57 Oxygen Delivery Method Room Air 08/15/24 00:57 Discharge Plan Plan Patient Disposition: Admit Acute Care w/in Hospital Prescriptions/Referrals Prescriptions/Med Rec: No Action No Known Home Medications Referrals: Balwinder Humphrey MD [Primary Care Provider] - In 1 week Problem List Clinical Impression: Alcohol withdrawal Patient/Caregiver Discharge Instructions Print Language: Turkmen Stand Alone Forms: Claire Award Info., Patient Portal Info Letter Alcohol MDM Narrative MDM Narrative: Scribe Attestation: Marialuisa Bowen, kathy scribing for and in the presence of Dr. Blackmon. Provider Notation: Although this document has been carefully reviewed, there may still be some phonetic and other typographical errors.? These errors are purely grammatical due to imperfections in the software program and should not be construed in any way to? compromise the substance of the patient's medical care during this visit. 29-year-old male here with possible alcohol withdrawal. History of heavy alcohol daily for years. For about 5 days when he was admitted here on 08/10/24 with possible GI bleeding and alcohol withdrawal. Upper endoscopy showed grade 1 esophageal varices and gastritis. He left AGAINST MEDICAL ADVICE yesterday. Currently, he reports severe shaking and tactile and visual hallucinations. With severe nausea and abdominal pain. No other complaints. Patient data External records reviewed:: [facility] previous records (Reviewed prior ED records from 06/16/24. Patient was seen for Alcohol abuse.) and EMS form Clinical information provided by:: EMS Social determinants that could affect healthcare access:: alcohol use Patient has the following chronic illnesses:: Alcohol abuse How is presenting disease/condition affected by chronic disease/condition?: exacerbated by Evaluation data The following diagnostics were reviewed and interpreted by me:: lab results Lab and/or radiology exams considered but not ordered:: None Interpretation Summary: I reviewed all diagnostic test results: Blood tests and urine tests remarkable for AST 125, ALT 64, ammonia 41. Covid/Influenza: Negative. Medications / Prescriptions Medications or Prescriptions considered but not ordered:: None Medication administrations:: Medication Administration History Acetaminophen (Acetaminophen 325 Mg Tablet) 650 mg PO Q6H PRN PRN Reason: Pain 1-3 and/or Fever >100.1 Stop: 09/14/24 02:52 Folic Acid (Folic Acid 1 Mg Tablet) 1 mg PO BID REPLACED BY [facility] Stop: 08/20/24 08:59 Lorazepam (Lorazepam 0.5 Mg Tablet) 0.5 mg PO Q4HR PRN PRN Reason: CIWA Score 2-6 Stop: 08/20/24 02:52 Lorazepam (Lorazepam 0.5 Mg Tablet) 1 mg PO Q4HR PRN PRN Reason: CIWA SCORE 7-11 Stop: 08/20/24 02:52 Lorazepam (Lorazepam 0.5 Mg Tablet) 2 mg PO Q4HR PRN PRN Reason: CIWA SCORE 12-15 Stop: 08/20/24 02:52 Lorazepam (Lorazepam 2 Mg/Ml Vial) 1 mg IV Q2HR PRN PRN Reason: CIWA SCORE 16-19 Stop: 08/20/24 02:52 Lorazepam (Lorazepam 2 Mg/Ml Vial) 2 mg IV Q2HR PRN PRN Reason: CIWA SCORE 20-25 Stop: 08/20/24 02:52 Ondansetron HCl (Ondansetron Inj 2 Mg/Ml Inj 2 Ml) 4 mg IVP Q6H PRN; Protocol PRN Reason: NAUSEA OR VOMITING Stop: 09/14/24 02:52 Pantoprazole Sodium (Pantoprazole Inj 40 Mg Vial) 40 mg IVP Q12HR APOORVA Stop: 09/14/24 08:59 Thiamine HCl (Thiamine 100 Mg Tablet) 100 mg PO BID REPLACED BY [facility] Stop: 08/20/24 08:59 Discontinued Medications Famotidine (Famotidine Inj 10 Mg/Ml Vial 2 Ml) 20 mg IVP X1 ONE Stop: 08/15/24 01:16 Last Admin: 08/15/24 02:06 Dose: 20 mg Documented By: DT Sodium Chloride (Ns) 1,000 mls @ 999 mls/hr IV .Q1H1M ONE Stop: 08/15/24 02:15 Last Admin: 08/15/24 02:04 Dose: 999 mls/hr Documented By: DT Lorazepam (Lorazepam 2 Mg/Ml Vial) 2 mg IVP X1 ONE Stop: 08/15/24 01:16 Last Admin: 08/15/24 02:05 Dose: 2 mg Documented By: DT Ondansetron HCl (Ondansetron Inj 2 Mg/Ml Inj 2 Ml) 4 mg IVP X1 ONE; Protocol Stop: 08/15/24 01:16 Last Admin: 08/15/24 02:04 Dose: 4 mg Documented By: DT Pantoprazole Sodium (Pantoprazole Inj 40 Mg Vial) 80 mg IVP X1 ONE Stop: 08/15/24 01:16 Last Admin: 08/15/24 02:07 Dose: 80 mg Documented By: DT From ut, patient received IVF, Ativan 2 mg, Zofran 4 mg, Pepcid 20 mg, Protonix 80 mg. Consultations Consultation(s) initiated? (list below): Yes Consultation #1 (Physician, Specialty, Details): I discussed the case with our hospitalist.? About the presentation and exam and diagnostics and treatments here.? And need of further care in the hospital.? W ill accept the patient. Diagnosis Differential diagnosis alcohol: alcohol withdrawal delirium, hypomagnesemia, alcohol intoxication, alcohol ketoacidosis, alcohol withdrawal syndrome and alcohol withdrawal seizure Most likely diagnosis given after review of the tests above:: Alcohol withdrawal Admission Indicated Admission indicated?: indicated Explain why admission is indicated or not indicated:: Alcohol withdrawal Admission Request Was there a request for admission?: Yes Admission Attestation Admission request attestation: Discussed case with [] from Hospitalist service regarding admission. Discussed patients ED course, exam findings, labs, and radiology results. The Hospitalist [agrees,declines] to accept the patient for admission. Disposition Plan Disposition Plan: Admit
[2024-08-15 01:18] VITALS: BP 128/80; PULSE 89; RESP 14; TEMP 37.4; O2SAT 96
[2024-08-15 01:20] VITALS: PULSE 88; RESP 14; O2SAT 95
[2024-08-15 01:41] LABS: Lactate (Lactic Acid) 2.0 mMol/L (0.4-2.0)
[2024-08-15 01:44] LABS: Basophils # (Auto) 0.0 Thou/mm3 (0.0-0.2); Basophils % (Auto) 0 % (0-2.5); Eosinophils # (Auto) 0.0 Thou/mm3 (0.0-0.5); Eosinophils % (Auto) 0 % (0-10); Hematocrit 39.4 % (41.0-53.0); Hemoglobin 13.9 g/dL (13.5-16.0); Immature Granulocytes Auto 0.03 Thou/mm3 (0.00-0.00); Lymphocytes # (Auto) 0.9 Thou/mm3 (1.0-4.8); Lymphocytes % (Auto) 10 % (10-50); Mean Corpuscular HGB Conc 35.3 g/dl (31.0-37.0); Mean Corpuscular Hemoglobin 34.3 pg (25.0-35.0); Mean Corpuscular Volume 97 fL (80-100); Monocytes # (Auto) 0.7 Thou/mm3 (0.0-0.8); Monocytes % (Auto) 8 % (0-12); Neutrophils # (Auto) 7.1 Thou/mm3 (1.8-7.7); Neutrophils % (Auto) 81 % (37-80); Nucleated Red Blood Cell # 0.00 Thou/mm3 (0.00-0.00); Nucleated Red Blood Cell % 0 /100 WBC (0); Platelet Count 132 Thou/mm3 (140-440); RDW Standard Deviation 43.6 fL (35.1-43.9); Red Blood Count 4.05 Miln/mm3 (4.50-5.90); White Blood Count 8.8 Thou/mm3 (3.8-10.6)
[2024-08-15 01:50] LABS: Sed Rate (ESR) 20 mm/hr (0-15)
[2024-08-15 01:55] LABS: INR 1.0 (0.9-1.3); Partial Thromboplastin Time 29.1 Seconds (22.0-36.0); Prothrombin Time 11.2 Seconds (9.0-12.2)
[2024-08-15 01:57] LABS: Ammonia 41 uMol/L (11-32)
[2024-08-15] MEDS: SODIUM CHLORIDE 0.9% 1000 ML 1,000 ML 999 ML IV (02:04)
[2024-08-15] MEDS: ONDANSETRON INJ 2 MG/ML INJ 2 ML 4 MG IVP (02:04)
[2024-08-15] MEDS: LORazepam 2 MG/ML VIAL IVP (02:05)
[2024-08-15] MEDS: FAMOTIDINE INJ 10 MG/ML VIAL 2 ML 20 MG IVP (02:06)
[2024-08-15 02:14] LABS: Acetaminophen < 2.0 mcg/mL (10.0-20.0); Alanine Aminotransferase 64 U/L (10-49); Albumin, Serum 5.0 gm/dL (3.5-5.0); Albumin/Globulin Ratio 1.8 (1.2-2.2); Alcohol, Blood Medical < 3.0 mg/dL (0-10.0); Alkaline Phosphatase 164 U/L (46-116); Amylase 145 U/L (30-118); Anion Gap 11 (7-16); Aspartate Amino Transferase 125 U/L (0-34); BUN/Creatinine Ratio 6 Ratio (12-20); Bilirubin,Direct 0.4 mg/dL (0.0-0.3); Bilirubin,Total 1.1 mg/dL (0.3-1.2); Blood Urea Nitrogen < 5 mg/dL (9-23); C-Reactive Protein < 0.5 mg/dL (0.0-0.9); Calcium 9.6 mg/dL (8.3-10.6); Calcium (Corrected) 9.6 mg/dL (8.5-10.1); Carbon Dioxide 25.4 mMol/L (20.0-31.0); Chloride 101 mMol/L (98-107); Creatinine (Component) 0.9 mg/dL (0.6-1.3); Free T4 (Free Thyroxine) 1.39 ng/dL (0.89-1.76); Globulin 2.8 gm/dL (2.3-3.5); Glucose 112 mg/dL (74-106); Lipase 46 U/L (12-53); Magnesium 1.8 mg/dL (1.6-2.6); Osmolality,Calculated 272 (275-295); Potassium 4.0 mMol/L (3.4-5.1); Procalcitonin 0.10 ng/ml (0.0-0.49); Salicylate < 3.0 mg/dL; Sodium 137 mMol/L (136-145); Thyroid Stimulating Hormone 1.86 uIU/mL (0.55-4.78); Total Protein 7.8 gm/dL (5.7-8.2); eGFR > 60 See Note
--- NOTE | 2024-08-15 02:58 | ESHP_ITS ---
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 Of note, patient left AMA on 08/14 after he was admitted for alcohol intoxication and hematemesis. Patient had an EGD completed on 08/12 which showed grade 1 varices in the lower third of the esophagus and some gastritis. Patient states that he left AMA because he felt anxious while in the hospital. Patient returns and states that he did not have any alcoholic drinks but did have an episode of bright red bloody vomiting. Patient also feels more anxious currently and would like to be readmitted. He states that he is seeing scary figures and feels jittery at this time. Medical history: As stated above Surgical history: Denies Allergies: NKDA Medications: Pending med rec Family history: Noncontributory Social history: Patient has significant alcohol use disorder, drinks multiple beers and mixed drinks daily, denies any tobacco or illicit drug use ROS: All 12 systems assessed and the patient denies unless otherwise stated in HPI In the ED, Patient presented with some foaming in the mouth but was awake and alert, normotensive with tachycardia heart rate 108, respiratory of 20, afebrile satting 96 on room air. Pertinent lab findings included WBC 8.8, hemoglobin 13.9, platelet 132, ammonia 41, lipase 46. Urine tox showed ethyl alcohol less than 3.0. CIWA score was not calculated in ED, he was given IV lorazepam 2 mg along with IV fluids and antiemetics. Patient will be admitted for upper GI bleed with GI consultation and CISD protocol for alcohol withdrawal symptoms Exam Vital Signs Temp Pulse Resp BP Pulse Ox O2 Del Method 99.3 F 89 14 128/80 96 Room Air 08/15/24 01:18 08/15/24 01:18 08/15/24 01:18 08/15/24 01:18 08/15/24 01:18 08/15/24 01:18 Narrative Exam Physical Exam: GENERAL: Awake, answering questions appropriately, appears listless HEENT: NC/AT. Moist mucosa. PERRLA/EOMI. CARDIO: Heart RRR, no obvious murmurs, no JVD. PULM: No coughing or visible SOB. Lungs CTA B/L. GI: Abdomen soft, tender to palpation diffusely, guarding noted but no rebound tenderness or rigidity. [place] apparent SKIN/MSK/EXT: No wounds/discoloration/rashes/edema/amputations. +Pedal pulses present B/L. NEURO: Oriented x3, Moves extremities x4, no focal neurologic deficits noted Results: Labs 08/15/24 01:25 08/15/24 01:25 Labs: Short CBC 08/15/24 Range/Units 01:25 WBC 8.8 D (3.8-10.6) Thou/mm3 Hgb 13.9 (13.5-16.0) g/dL Hct 39.4 L (41.0-53.0) % Plt Count 132 L (140-440) Thou/mm3 BMP 08/15/24 01:25 Sodium 137 Potassium 4.0 D Chloride 101 Carbon Dioxide 25.4 BUN < 5 L Creatinine 0.9 Glucose 112 H Calcium 9.6 Liver Function 08/15/24 Range/Units 01:25 Total Bilirubin 1.1 (0.3-1.2) mg/dL Direct Bilirubin 0.4 H (0.0-0.3) mg/dL AST 125 H (0-34) U/L ALT 64 H (10-49) U/L Alkaline Phosphatase 164 H (46-116) U/L Albumin 5.0 D (3.5-5.0) gm/dL Quality Measures Quality Measures none Medications Home Medications and Allergies Home Medications ?Medication ?Instructions ?Recorded ?Confirmed ?Type No Known Home Medications 08/12/24 0708/01 History Allergies Allergy/AdvReac Type Severity Reaction Status Date / Time No Known Allergies Allergy Verified 08/10/24 22:50 Visit Medications Discontinued Medications Famotidine (Famotidine Inj 10 Mg/Ml Vial 2 Ml) 20 mg IVP X1 ONE Stop: 08/15/24 01:16 Last Admin: 08/15/24 02:06 Dose: 20 mg Sodium Chloride (Ns) 1,000 mls @ 999 mls/hr IV .Q1H1M ONE Stop: 08/15/24 02:15 Last Admin: 08/15/24 02:04 Dose: 999 mls/hr Lorazepam (Lorazepam 2 Mg/Ml Vial) 2 mg IVP X1 ONE Stop: 08/15/24 01:16 Last Admin: 08/15/24 02:05 Dose: 2 mg Ondansetron HCl (Ondansetron Inj 2 Mg/Ml Inj 2 Ml) 4 mg IVP X1 ONE; Protocol Stop: 08/15/24 01:16 Last Admin: 08/15/24 02:04 Dose: 4 mg Pantoprazole Sodium (Pantoprazole Inj 40 Mg Vial) 80 mg IVP X1 ONE Stop: 08/15/24 01:16 Last Admin: 08/15/24 02:07 Dose: 80 mg Assessment & Plan Plan 29-year-old male with past medical history of alcohol use disorder, 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, gastritis presenting to the ED on 08/15 with episode of hematemesis and anxiety will be admitted for upper GI bleed with GI consultation and CISD protocol for alcohol withdrawal symptoms #Likely upper GI bleed #Alcohol induced liver injury #Decompensated liver disease with esophageal varices #Gastritis Was recently admitted for similar presentation, found to have grade 1 esophageal varices and gastritis on EGD As stated above, patient has severe alcohol use disorder which is most likely cause of upper GI bleed 5?points Child Class A Life Expectancy : 15-20 years Maddrey's Discriminant Function for Alcoholic Hepatitis: 2.0?points Good prognosis Current hemoglobin of 13.9 Plan: Clear liquid diet GI consultation, appreciate recommendations IV Protonix 40 twice daily Trend hemoglobin If hemoglobin less than 7 or dropping drastically, transfuse #Alcohol withdrawal #Alcohol use disorder Patient states that he did not have any drink since leaving [place] On examination, patient has listlessness and audiovisual hallucinations; no asterixis Plan: CISD protocol Zofran as needed Thiamine and folate supplementation Social service consultation Cyber Systems Administrator on complete alcohol cessation Health Maintenance: Lines: PIV Diet: Clear liquid diet Bowel: Not needed GI prophylaxis: IV Protonix 40 twice daily DVT prophylaxis: SCD Dispo: GI consultation for hematemesis and CIWA protocol for alcohol withdrawal Code: Full Patient seen and assessed with attending Dr. Jeff Beasley, DO PGY-2 Internal Medicine - [facility] Attending Provider Attestation/Addendum After examination of the patient and review of the clinical data I feel that this patient needs admission to the hospital for further treatment/evaluation. I have discussed and was present for the essential components of the history, physical examination, diagnosis, and treatment plan with the resident. I agree with the patient's care as documented by the resident and amended herein by me. Deni Aguilar DO. Although this document has been carefully reviewed, there may still be some phonetic and other typographical errors. These errors are purely grammatical due to imperfections in the software program and should not be construed in any way to compromise the substance of the patient's medical care during this visit. Patient seen and evaluated in the ED. Patient is a 29-year-old male with significant past medical history of alcohol withdrawal and seizure, alcohol abuse and liver cirrhosis, grade 1 esophageal varices, and gastritis, presented to the ED for acute alcohol withdrawal. Patient was initially admitted on 08/11 for alcohol intoxication and hematemesis however left AMA on 08/14. He did have an EGD on last admission demonstrated grade 1 esophageal varices, and gastritis. It was recommended at that time the patient adhere to a 2 g sodium diet, complete abstinence from alcohol. Patient denied having any drinks since he left AMA yesterday however he feels very anxious, he also appears to be hallucinating and states he has the jitters of note, on his last admission, patient was noted to be bradycardic however pulse has been fine here fact he was tachycardic on arrival. In the ED, vital signs stable, patient afebrile, significant labs include a platelet count of 132, ESR 20, alcohol level less than 3. Liver enzymes elevated, AST 125, ALT 64, alk phos 164 and T. bili 1.1. Ammonia level 41. No imaging performed in ED. Patient admitted to telemetry for acute GI bleed in setting of acute decompensated liver cirrhosis and acute alcohol withdrawal. At this time CIWA protocol will be ordered, patient will be started on Librium, will start Protonix 40 mg IV twice daily in setting of hematemesis and grade 1 esophageal varices. Gastroenterology will also be consulted, will start the patient on prophylactic ceftriaxone for SBP prophylaxis. Due to bradycardia on last admission, will hold propranolol for now as well as octreotide drip. Discussed with the patient importance of alcohol cessation and expectations moving forward.
[2024-08-15 03:13] LABS: Amphetamine/Methamp Scrn,U Negative (Negative); Barbiturate Screen,Urine Negative (Negative); Benzodiazepines Screen,Urine Negative (Negative); Benzoylecgonine Screen, Ur Negative (Negative); Fentanyl Screen,Urine Negative (Negative); Opiate Screen,Urine Positive (Negative); THC Screen,Urine Negative (Negative)
[2024-08-15 04:10] VITALS: BP 122/82; PULSE 74; RESP 17; TEMP 36.6; O2SAT 97
--- NOTE | 2024-08-15 04:30 | PC.NURSE ---
Pt reports intermittent abd pain, pt states pain is sharp but comes and goes
--- NOTE | 2024-08-15 04:40 | PC.NURSE ---
Pt reported bleeding from IV Right AC, pt noted to accidently pulled out IV while turning over in bed, site cleaned, 2 x 2 gauze applied to site and secured with tape, pressure applied to site for 5 minutes
[2024-08-15 04:53] LABS: Basophils # (Auto) 0.0 Thou/mm3 (0.0-0.2); Basophils % (Auto) 0 % (0-2.5); Eosinophils # (Auto) 0.0 Thou/mm3 (0.0-0.5); Eosinophils % (Auto) 0 % (0-10); Hematocrit 37.4 % (41.0-53.0); Hemoglobin 13.5 g/dL (13.5-16.0); Immature Granulocytes Auto 0.02 Thou/mm3 (0.00-0.00); Lymphocytes # (Auto) 1.3 Thou/mm3 (1.0-4.8); Lymphocytes % (Auto) 17 % (10-50); Mean Corpuscular HGB Conc 36.1 g/dl (31.0-37.0); Mean Corpuscular Hemoglobin 34.6 pg (25.0-35.0); Mean Corpuscular Volume 96 fL (80-100); Monocytes # (Auto) 0.6 Thou/mm3 (0.0-0.8); Monocytes % (Auto) 8 % (0-12); Neutrophils # (Auto) 5.7 Thou/mm3 (1.8-7.7); Neutrophils % (Auto) 75 % (37-80); Nucleated Red Blood Cell # 0.00 Thou/mm3 (0.00-0.00); Nucleated Red Blood Cell % 0 /100 WBC (0); Platelet Count 104 Thou/mm3 (140-440); RDW Standard Deviation 43.7 fL (35.1-43.9); Red Blood Count 3.90 Miln/mm3 (4.50-5.90); White Blood Count 7.7 Thou/mm3 (3.8-10.6)
[2024-08-15 04:55] VITALS: BMI 23.9
[2024-08-15 05:03] LABS: Alanine Aminotransferase 63 U/L (10-49); Albumin, Serum 4.8 gm/dL (3.5-5.0); Albumin/Globulin Ratio 1.7 (1.2-2.2); Alkaline Phosphatase 160 U/L (46-116); Anion Gap 10 (7-16); Aspartate Amino Transferase 121 U/L (0-34); BUN/Creatinine Ratio 6 Ratio (12-20); Bilirubin,Total 1.2 mg/dL (0.3-1.2); Blood Urea Nitrogen 5 mg/dL (9-23); Calcium 9.8 mg/dL (8.3-10.6); Calcium (Corrected) 9.8 mg/dL (8.5-10.1); Carbon Dioxide 26.3 mMol/L (20.0-31.0); Chloride 107 mMol/L (98-107); Creatinine (Component) 0.8 mg/dL (0.6-1.3); Estimated Creatinine Clearance 111.6 mL/min (>60); Globulin 2.8 gm/dL (2.3-3.5); Glucose 103 mg/dL (74-106); Osmolality,Calculated 282 (275-295); Potassium 4.0 mMol/L (3.4-5.1); Sodium 143 mMol/L (136-145); Total Protein 7.6 gm/dL (5.7-8.2); eGFR > 60 See Note
--- NOTE | 2024-08-15 05:30 | PC.NURSE ---
Teodora Og notified that patient eloped from ER while awaiting for room into hospital
--- NOTE | 2024-08-15 05:30 | PC.NURSE ---
Pt eloped at this time, pt allowed science writer to remove IV, cath of IV noted to be intact, site cover with gauze and secured with tape, no bleeding noted from site. Pt noted to be A/O x 3 with steady gait and no s/s of breathing distress or pain reported. animal treatment investigator notified at this time as well as security.
--- NOTE | 2024-08-15 05:44 | PD.RESEVENT ---
Documentation for date of: 08/15/24 Event Note Event Note: 08/15/2024: Recieved a call around 5:36AM from ED that the patient had eloped. The nurses attempted to stop him from leaving but were unsuccessful. I was notified after the fact that the patient had eloped. Attending made aware. Wilber Beasley, DO PGY-2 Internal Medicine - [facility]
== END 2024-08-15 05:30 | disposition left against medical advice (07) | DRG 253 ==
LOC: SERX 02:49 → SERHOLD 03:19
PROVIDERS: Admitting Provider Student in an Organized Health Care Education/Training Program; Emergency Provider Emergency Medicine; PCP Family Medicine; Visit Provider Student in an Organized Health Care Education/Training Program
DX: K92.0 Hematemesis (principal); F10.939 Alcohol use, unspecified with withdrawal, unspecified; Y90.0 Blood alcohol level of less than 20 mg/100 ml; K70.10 Alcoholic hepatitis without ascites; I85.10 Secondary esophageal varices without bleeding; K29.70 Gastritis, unspecified, without bleeding; K74.60 Unspecified cirrhosis of liver
CPT/HCPCS: 36415; 80053; 80307; 80320; 80329; 82140; 82150; 82248; 83605; 83690; 83735; 84145; 84439; 84443; 85025; 85610; 85652; 85730; 86140; 87040; 87400; 87811; 96361; 96372; 96374; 96375; 99285; J2060; J2405; J2470; J3490; J7030; G0480

== ENCOUNTER 2024-08-20 14:28 | Outpatient (AMB) | payer MEDICAID, SELFPAY ==
[2024-08-20 14:38] VITALS: BP 117/66; PULSE 127; RESP 22; TEMP 36.7; O2SAT 95; BMI 25.0
--- NOTE | 2024-08-20 14:38 | ACNOTE_ITS ---
Vital Signs 08/20/24 14:38 Height 1.6 m Height Method Stated Weight 64.013 kg Weight Measurement Method Standing Scale BMI 25.0 BP 117/66 Blood Pressure Source Automatic Cuff Blood Pressure Location Right Upper Arm Position Sitting Respiration 22 H Pulse 127 H Pulse Source Monitor Temp 98.1 F Temp Source Temporal Artery Scan Pulse Oximetry (%) 95 Oxygen Delivery Method Room Air Allergies/Meds Allergies & Medications Allergies No Known Allergies Allergy (Verified 08/10/24 22:50) MA Intake Visit Data Collection New Patient or Established: Established Patient (seen at [facility] within 3 years) Seen by Clinical Staff ONLY (RN/MA): No Reason for Visit:: HOSPITAL FOLLOW UP Mangle Press Catcher Required: No PCP or OBGYN visit in last 3 months: No Do You Feel Safe at Home: Yes Authorities Contacted: N/A Smoking Status Smoking Status: Never smoker Immunization / Flu Flu Vaccine in the Last 12 Months: No Flu Vaccine Exclusion Criteria: No Exclusion Criteria Past Medical History Past Medical History NEUROLOGIC: Positive Neurological Disorders; Negative Seizures (Alcohol withdrawal precautions implemented) CARDIAC: Negative Cardiac Disorders or Congestive Heart Failure RESPIRATORY: Negative Chronic Obstructive Pulmonary Disease (COPD) or Asthma GASTROINTESTINAL: Positive Gastrointestinal Disorders and Cirrhosis GENITOURINARY: Negative Genitourinary Disorders or Renal Disease ENDOCRINE: Negative Diabetes Mellitus Type 1 or Diabetes Mellitus Type 2 HEMATOLOGIC: Negative Sickle Cell Disease PSYCHO/SOCIAL: Positive Depression and Anxiety OTHER HISTORY: Negative Autoimmune Disease, Blood Transfusions, Blood Transfusion Reaction (NA), Anesthesia Reactions, MRSA or Cancer Family History FAMILY HISTORY: Positive Family Psychiatric Problems; Negative Family Respiratory Disorders, Family Cardiac Disorders, Family Gastrointestinal Problems, Family Cancer, Family Surgery or Family Anesthesia Reaction Surgical History SURGICAL: Negative Abdominal Surgery Social History SMOKING STATUS: Smoking status: Never smoker SECOND HAND EXPOSURE: second hand exposure: No ALCOHOL: Alcohol Intake: Current ALCOHOL FREQUENCY: Alcohol Intake Frequency: 3 or More Drinks per Day HOUSING: Housing: House LIVES WITH: Lives With: Family Patient [employer] Social History Living Situation History Housing: House Housing Other:: Lives with father Abad Aden Tobacco History Smoking Status: Never smoker Packs per Day: 0.5 Second Hand Smoke Exposure: No Alcohol History Alcohol Intake: Current Alcohol Intake Frequency: 3 or More Drinks per Day Alcohol Intake Frequency Other:: beer and whisky daily Domestic Abuse History Do You Feel Safe at Home: Yes Review of Systems Report any current symptoms Only answer those that you have currently: Past Medical History Past Medical History Have you ever been diagnosed with any of the following: Neurological Problems Seizures: No (Alcohol withdrawal precautions implemented) Cardiology Problems Congestive Heart Failure: No Respiratory Problems Chronic Obstructive Pulmonary Disease (COPD): No Asthma: No Stomache/Intestinal Problems Cirrhosis: Yes Genital/Urinary Problems Renal Disease: No Endocrine Problems Diabetes Mellitus Type 1: No Diabetes Mellitus Type 2: No Blood Problems Sickle Cell Disease: No Psychologic Problems Depression: Yes Anxiety: Yes Other Problems Autoimmune Disease: No Blood Transfusions: No Blood Transfusion Reaction: No (NA) Anesthesia Reactions: No MRSA: No Cancer: No History of Present Illness HPI Narrative Patient examined at bedside today. Patient reports that he wants to quit alcohol. 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 He is requesting a work note. He says that he wants to quit alcohol and get back on track. He says that he has been noticing dark stools as well ever since he left the hospital. He says he will take a medicine to help them. He also has abdominal pain. He has no other complaints this time Review of Systems Review of Systems Narrative Review of Systems: Constitutional: No fever, chills, fatigue, weakness, weight loss, +hands shaking HEENT: No eye pain, vision loss, ear pain, hearing loss, dysphagia, Cardiovascular: No chest pain, palpitations, edema, pain with walking Respiratory: No cough, shortness of breath, wheezing GI: No NVD, + abdominal pain, no constipation, blood in stool, loss of appetite, heartburn, +Melena Extremities: No presence of pitting edema MSK: No back pain, joint pain, joint swelling Neuro: No dizziness, numbness, weakness, headaches, seizures, tremors Psych: No anxiety, depression Objective/Exam Narrative Physical exam: General: AAOx3, in mild distress, actively withdrawing from alcohol HEENT: Moist mucous membranes, conjunctiva clear, EOMI, PERRLA, Cardiovascular: S1, S2, radial pulses +2 bilat, tachycardic Pulmonary: CTAB bilat no cough, no wheezing GI: Tenderness to palpitation of abdomen, no guarding, rigidity, rebound tenderness or distension Extremities: No presence of trace or pitting edema in lower extremities bilaterally, dorsalis pedis pulses +2 bilaterally Neuro: AAOx3, no focal motor or sensory deficits in the UE or LE bilat Psych: Cooperative, no visual or auditory hallucinations, shaking hands at baseline as patient is withdrawing currently Assessment & Plan Diagnosis / Problem List (1) Melena: Status: Acute Assessment & Plan: Patient was admitted into the hospital about a week ago, showed esophageal varices that were not actively bleeding and did not get banded Patient does not want to go to the ER at this time, however is having active dark stools Patient wants to take medicine at this time before going to the ER Plan: Protonix 40 mg by mouth twice daily Repeat CBC in a week ER precautions (2) Gastritis: Status: Acute Assessment & Plan: Patient will need to complete urea breath test before starting Protonix Plan: Urea breath test Protonix 40 mg by mouth twice daily Dicyclomine 10 mg 3 times daily as needed (3) Cirrhosis: Status: Acute Qualifiers: Hepatic cirrhosis type: alcoholic cirrhosis Plan: Librium 25 mg 4 times daily Strict follow-up within a week CBC in a week (4) Alcohol withdrawal: Status: Acute Qualifiers: Complication of substance-induced condition: with perceptual disturbance Qualified Code(s): F10.932 - Alcohol use, unspecified with withdrawal with perceptual disturbance Assessment & Plan: Patient is tachycardic at this time Patient is having abdominal pain, however no auditory or visual hallucinations Plan: Librium 25 mg 4 times daily Strict follow-up within a week Orders: Orders Urea Breath Test Today K29.70 - Gastritis, unspecified, without bleeding CBC Today K74.60 - Unspecified cirrhosis of liver Office Procedures [facility] Level of Care Nursing/Assessment Patient Status: Established Patient Nursing Assessment/Reassessment: BP Monitoring, Medication Reconciliation, Update PMH in EMR and Vital Signs Coordination of Care: Complex Care and Chronic Disease 1-5, Consent,records obtained, informed consent, Lab and Imaging orders and Results/Orders obtained Established Patient Charge Established Patient Point Assignment: 95 Established Patient Point Charge: Level 3 (80-115)
== END 2024-08-20 15:53 | disposition home or self-care (01) ==
LOC: HODAHC 14:28
PROVIDERS: PCP Family Medicine; Referring Provider Family Medicine
DX: K29.70 Gastritis, unspecified, without bleeding (principal); K70.30 Alcoholic cirrhosis of liver without ascites; I85.00 Esophageal varices without bleeding; F10.139 Alcohol abuse with withdrawal, unspecified
CPT/HCPCS: 99213; G0463

== ENCOUNTER 2024-08-27 14:18 | Outpatient (AMB) | payer MEDICAID, SELFPAY ==
--- NOTE | 2024-08-27 14:18 | PD.RESCLINIC ---
Vital Signs 08/27/24 14:19 Height 1.6 m Height Method Stated BP 106/70 Blood Pressure Source Automatic Cuff Blood Pressure Location Right Upper Arm Position Sitting Respiration 18 Pulse 102 H Pulse Source Monitor Temp 97.6 F Temp Source Temporal Artery Scan Pulse Oximetry (%) 95 Oxygen Delivery Method Room Air Allergies/Meds Allergies & Medications Allergies No Known Allergies Allergy (Verified 08/31/24 10:12) Medication Reconciliation dicyclomine 10 mg capsule 10 mg PO QID PRN abdominal pain 1 month #90 caps 08/20/24 [Rx Confirmed 08/28/24] pantoprazole 40 mg tablet,delayed release (Protonix) 40 mg PO BID 1 month #60 tabs 08/20/24 [Rx Confirmed 08/28/24] MA Intake Visit Data Collection New Patient or Established: Established Patient (seen at [facility] within 3 years) Seen by Clinical Staff ONLY (RN/JILLIAN): No Pain Present Currently: No Pain scale:: 0 Pain Scale Used: [place]/Numerical Geospatial Technician Required: No PCP or OBGYN visit in last 3 months: No Hx Now: No Do You Feel Safe at Home: Yes Authorities Contacted: N/A Smoking Status Smoking Status: Never smoker Immunization / Flu Flu Vaccine in the Last 12 Months: No Flu Vaccine Exclusion Criteria: No Exclusion Criteria Past Medical History Past Medical History NEUROLOGIC: Positive Neurological Disorders; Negative Seizures (Alcohol withdrawal precautions implemented) CARDIAC: Negative Cardiac Disorders or Congestive Heart Failure RESPIRATORY: Negative Chronic Obstructive Pulmonary Disease (COPD) or Asthma GASTROINTESTINAL: Positive Gastrointestinal Disorders and Cirrhosis GENITOURINARY: Negative Genitourinary Disorders or Renal Disease ENDOCRINE: Negative Diabetes Mellitus Type 1 or Diabetes Mellitus Type 2 HEMATOLOGIC: Negative Sickle Cell Disease PSYCHO/SOCIAL: Positive Depression and Anxiety OTHER HISTORY: Negative Autoimmune Disease, Blood Transfusions, Blood Transfusion Reaction (NA), Anesthesia Reactions, MRSA or Cancer Family History FAMILY HISTORY: Positive Family Psychiatric Problems; Negative Family Respiratory Disorders, Family Cardiac Disorders, Family Gastrointestinal Problems, Family Cancer, Family Surgery or Family Anesthesia Reaction Surgical History SURGICAL: Negative Abdominal Surgery Social History SMOKING STATUS: Smoking status: Never smoker SECOND HAND EXPOSURE: second hand exposure: No ALCOHOL: Alcohol Intake: Current ALCOHOL FREQUENCY: Alcohol Intake Frequency: 3 or More Drinks per Day HOUSING: Housing: House LIVES WITH: Lives With: Family Patient Pepe Ceja Social History Living Situation History Housing: House Housing Other:: Lives with father Abad Aden Tobacco History Smoking Status: Never smoker Packs per Day: 0.5 Second Hand Smoke Exposure: No Alcohol History Alcohol Intake: Current Alcohol Intake Frequency: 3 or More Drinks per Day Alcohol Intake Frequency Other:: beer and whisky daily Domestic Abuse History Do You Feel Safe at Home: Yes Review of Systems Report any current symptoms Only answer those that you have currently: Past Medical History Past Medical History Have you ever been diagnosed with any of the following: Neurological Problems Seizures: No (Alcohol withdrawal precautions implemented) Cardiology Problems Congestive Heart Failure: No Respiratory Problems Chronic Obstructive Pulmonary Disease (COPD): No Asthma: No Stomache/Intestinal Problems Cirrhosis: Yes Genital/Urinary Problems Renal Disease: No Endocrine Problems Diabetes Mellitus Type 1: No Diabetes Mellitus Type 2: No Blood Problems Sickle Cell Disease: No Psychologic Problems Depression: Yes Anxiety: Yes Other Problems Autoimmune Disease: No Blood Transfusions: No Blood Transfusion Reaction: No (NA) Anesthesia Reactions: No MRSA: No Cancer: No History of Present Illness HPI Narrative Garcia is a 29 y/o male here for a follow up. Pt seen by bedside today and is actively withdrawing from EtOH. When asked about if he has been taking his medicines, pt says that he does not know where they are at this time. He said his last drink was yesterday. Pt is not able to full communicate at this time as he is actively withdrawing. Review of Systems Review of Systems Narrative Review of Systems: Limited ROS at this time as pt is unable to fully communicate at this time as he is actively withdrawing from EtOH Objective/Exam Narrative Physical exam: Limited Physical exam at this time General: In acute distress, Cardiovascular: Tachycardic GI: Actively vomiting, diffuse abdominal pain at rest Psych: Actively withdrawing from EtOH with tremors Assessment & Plan Diagnosis / Problem List (1) Alcohol withdrawal: Status: Acute Qualifiers: Complication of substance-induced condition: with perceptual disturbance Qualified Code(s): F10.932 - Alcohol use, unspecified with withdrawal with perceptual disturbance Assessment & Plan: Pt is actively withdrawing from EtOH with pain in abdomen at rest, tachycardia, and actively vomiting. He denies having any hallunications at this point Pt will need to go to ER for further management of EtOH He will likely need further medical stabilization in the ER with benzodiazepines, antiemetics and IV fluid hydration Plan: Strict NPO Strict instructions to go to ER at this time Office Procedures [facility] Level of Care Nursing/Assessment Patient Status: Established Patient Nursing Assessment/Reassessment: Medication Reconciliation, Update PMH in EMR and Vital Signs Coordination of Care: Complex Care and Chronic Disease 1-5, Consent,records obtained, informed consent, Education Simp Pt/Fam and Staff clarify orders Established Patient Charge Established Patient Point Assignment: 85 Established Patient Point Charge: EP Level 3 (80-115)
[2024-08-27 14:19] VITALS: BP 106/70; PULSE 102; RESP 18; TEMP 36.4; O2SAT 95
== END 2024-08-27 15:46 | disposition home or self-care (01) ==
LOC: HODAHC 14:18
PROVIDERS: PCP Family Medicine; Referring Provider Family Medicine
DX: F10.232 Alcohol dependence with withdrawal with perceptual disturbance (principal)
CPT/HCPCS: 99213; G0463

== ENCOUNTER 2024-08-27 16:00 | Inpatient (IN) | payer MEDICAID, SELFPAY ==
[2024-08-27] VITALS (25 sets, daily range): BP systolic 89–129; BP diastolic 53–84; PULSE 39–106; RESP 8–24; TEMP 36.6–36.9; O2SAT 95–100; BMI 20.8
--- NOTE | 2024-08-27 16:09 | EKG_ITS ---
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
[2024-08-27 16:41] LABS: Lactate (Lactic Acid) 1.7 mMol/L (0.4-2.0)
[2024-08-27] MEDS: DIAZEPAM INJ 5 MG/ML VIAL 2 ML 10 MG IVP ×2 (16:49→22:08)
[2024-08-27] MEDS: ONDANSETRON INJ 2 MG/ML INJ 2 ML 4 MG IVP (16:50)
--- NOTE | 2024-08-27 17:05 | PD.EDALCOH ---
ED Alcohol RME/HPI General Chief Complaint: Alcohol Stated Complaint: WITHDRAW Time Seen by Provider: 08/27/24 16:06 Arrival date/time: 08/27/24 16:00 RME / HPI RME / HPI narrative: 29-year-old male who arrived by EMS. He was at his doctor's office, was suspected to be in alcohol withdrawal, and sent here. He is having active tremors without seizures. He states he is having hallucinations. When asked to describe this, he states he is seeing scary things . He does not elaborate further. He denies any falls or injuries. He does endorse nausea and vomiting. Denies any chronic medical condition. Denies any substance abuse other than alcohol. He states he drinks daily. I was unable to qualify this further. Related Data Previous Rx's ?Medication ?Instructions ?Recorded dicyclomine 10 mg capsule 10 mg PO QID PRN abdominal pain 1 08/20/24 month #90 caps pantoprazole 40 mg tablet,delayed 40 mg PO BID 1 month #60 tabs 08/20/24 release (Protonix) Allergies Allergy/AdvReac Type Severity Reaction Status Date / Time No Known Allergies Allergy Verified 08/27/24 16:19 Review of Systems Review of Systems Systems Reviewed: All systems reviewed, normal except as documented ED Exam General General appearance: Present alert, anxious and in distress Head Head exam: Present atraumatic Eye Eye exam: Present normal appearance, PERRL and EOMI ENT ENT exam: Present normal exam, normal oropharynx and mucous membranes moist Neck Neck exam: Present normal inspection, full ROM and trachea midline Chest Chest inspection: Present normal inspection and symmetric chest wall rise Respiratory Respiratory exam: Present normal lung sounds bilaterally Cardiovascular Cardiovascular exam: Present regular rate, normal rhythm and normal heart sounds Abdominal Exam Abdominal exam: Present soft and normal bowel sounds Extremities Exam Extremities exam: Present normal inspection and full ROM Back Exam Back exam: Present normal inspection and full ROM Neurological Exam Neurological exam: Present alert, oriented X3 and other (He has resting tremors) Psychiatric Psychiatric exam: Present anxious Skin Skin exam: Present warm, dry, intact and normal color Course Quality Measures none Orders Category Date Time Status Bedside COVID-19 Antigen Test NOW Care 08/27/24 19:43 Active COVID-19 Screening Questionnaire NOW Care 08/27/24 19:26 Active COVID-19 Screening Questionnaire NOW Care 08/27/24 19:[address] Screening NOW Care 08/27/24 20:33 Active Decision to Admit X1 Care 08/27/24 19:26 Completed Decision to Admit X1 Care 08/27/24 19:46 Completed EKG (ED ONLY) *Do not use* NOW Care 08/27/24 16:09 Completed Occult Blood,Stool (Nursing) ONCE Care 08/27/24 20:34 Active Consult to Gastroenterology Stat Cons 08/27/24 20:[address] abdomen pelvis w con Stat Exams 08/27/24 20:[address] head/brain wo con Stat Exams 08/27/24 17:09 Completed EKG (ED Only) Stat Exams 08/27/24 16:09 Draft Alcohol, Blood Medical Stat Lab 08/27/24 16:20 Completed CBC Stat Lab 08/27/24 16:20 Completed CMP [Comprehensive Metabolic Panel] Stat Lab 08/27/24 16:20 Completed Drug Screen,Urine Stat Lab 08/27/24 16:09 Ordered Lactic Acid [Lactate (Lactic Acid)] Stat Lab 08/27/24 16:20 Completed Lipase Stat Lab 08/27/24 16:20 Completed Magnesium Stat Lab 08/27/24 16:20 Completed UA, C/S IF [Urinalysis, C/S if Indicated] Stat Lab 08/27/24 16:07 Ordered Diazepam Inj [Valium Inj] Med 08/27/24 16:41 Discontinued 10 mg IVP X1 ONE Diazepam Inj [Valium Inj] Med 08/27/24 20:36 Discontinued 10 mg IVP X1 ONE Diazepam Inj [Valium Inj] Med 08/27/24 16:07 Discontinued 5 mg IVP X1 ONE Diazepam Inj [Valium Inj] Med 08/27/24 19:28 Discontinued 5 mg IVP X1 ONE Magnesium Sulfate 1 gm Ivpb [Magnesium Sulfate Ivpb] Med 08/27/24 17:22 Discontinued 1 gm in 100 ml IV X1 Morphine Inj Med 08/27/24 17:36 Discontinued 4 mg IVP X1 ONE Octreotide Acet Inj [SandoSTATIN Inj] Med 08/27/24 20:47 Discontinued 50 mcg IV X1 ONE Ondansetron Inj [Zofran Inj] Med 08/27/24 16:42 Discontinued 4 mg IVP X1 ONE PHENobarbital Inj 260 mg Med 08/27/24 20:43 Discontinued Sodium Chloride 0.9% Flush [NS Flush] 24 ml IVP X1 Pantoprazole Inj [Protonix Inj] Med 08/27/24 19:28 Discontinued 40 mg IVP X1 ONE Sodium Chloride 0.9% 1000 ml [Ns] 1,000 ml Med 08/27/24 17:23 Discontinued IV 120 mls/hr Sodium Chloride 0.9% [Ns] 100 ml Med 08/27/24 20:49 Active Octreotide Acet Inj [SandoSTATIN Inj] 1,000 mcg IV 50 mcg/hr Vital Signs Vital signs: Vital Signs Temperature 98.4 F 08/27/24 16:02 Pulse Rate 99 08/27/24 16:02 Respiratory Rate 24 H 08/27/24 16:02 Blood Pressure 123/68 08/27/24 16:02 Pulse Oximetry (%) 96 08/27/24 16:02 Oxygen Delivery Method Room Air 08/27/24 16:02 Critical Care Time Critical Care Time Total Critical Care Time (min.): 45 Attestation: The high probability of sudden, clinically significant deterioration in the patient's condition required the highest level of my preparedness to intervene urgently. The services I provided to this patient were to treat and/or prevent clinically significant deterioration. Services included the following: chart data review, reviewing nursing notes and/or old charts, documentation time, ada accommodation consultant collaboration regarding findings and treatment options, medication orders and management, direct patient care, vital sign assessments and ordering, interpreting and reviewing diagnostic studies and lab tests. Aggregate critical care time includes only time during which I was engaged in work directly related to the patient's care, as described above, whether at bedside or elsewhere in the Emergency Department. It did not include time spent performing other reported procedures or the services of residents, students, nurses or physician assistants. Discharge Plan Plan Patient Disposition: Admit Acute Care w/in Hospital Patient condition on transfer: Stable Problem List Clinical Impression: Alcohol withdrawal Alcohol MDM Narrative MDM Narrative: 29-year-old male who arrived by EMS. He was at his doctor's office, was suspected to be in alcohol withdrawal, and sent here. He is having active tremors without seizures. He states he is having hallucinations. When asked to describe this, he states he is seeing scary things . He does not elaborate further. He denies any falls or injuries. He does endorse nausea and vomiting. Denies any chronic medical condition. Denies any substance abuse other than alcohol. He states he drinks daily. I was unable to qualify this further. On exam, patient is anxious appearing. Vital signs are stable. He has resting tremors. He is endorsing visual hallucinations but is not responding to internal stimuli. His CBC reveals no leukocytosis. He has a very mild anemia with a hemoglobin 11.1 hematocrit of 31.4. Glucose is 65. Our hospitalist team and ICU team was contacted regarding patient's status. Dr. Serrano, our school guidance counselor will evaluate the patient. He did request more Valium to be used in the interim initially. We later opted to discontinue this and provide phenobarbital to [address] Serrano requested GI consult and CT of the abdomen pelvis as the patient reported dark stools to him. Dr. Tello with gastroenterology was contacted and sees the patient in the ER. Patient data External records reviewed:: EMS form Clinical information provided by:: patient and EMS Social determinants that could affect healthcare access:: alcohol use Patient has the following chronic illnesses:: Alcohol abuse How is presenting disease/condition affected by chronic disease/condition?: exacerbated by Evaluation data The following diagnostics were reviewed and interpreted by me:: lab results (No leukocytosis. Mild anemia is present. No significant metabolic derangement. Magnesium is 1.4.), radiology exam(s) (CT of the head is unremarked for any acute intercranial pathology) and EKG tracing(s) (EKG reveals normal sinus rhythm at [address] changes or dynamic T waves.) Lab and/or radiology exams considered but not ordered:: n/a Interpretation Summary: Mild hypomagnesia Medications / Prescriptions Medications or Prescriptions considered but not ordered:: n/a Medication administrations:: Medication Administration History Phenobarbital Sodium 130 mg/ (Sodium Chloride 12 ml) 0 mg IVP Q30MIN PRN PRN Reason: ALCOHOL WITHDRAWAL CIWA >25 Stop: 09/10/24 21:05 Octreotide Acetate 1,000 mcg/ (Sodium Chloride) 102 mls @ 5.1 mls/hr IV .Q20H [facility]; Protocol Stop: 08/28/24 16:48 Last Admin: 08/27/24 22:18 Dose: 50 mcg/hr, 5.1 mls/hr Documented By: Ceftriaxone Sodium/Dextrose (Rocephin/D5w 1gm Iv Premix) 1 gm in 50 mls @ 100 mls/hr IV QDAY [facility] Stop: 09/03/24 21:00 Morphine Sulfate (Morphine Sulf Inj 10 Mg/Ml Vial) 2 mg IVP Q2H PRN PRN Reason: PAIN SCALE 7-10 (Severe Stop: 09/01/24 20:56 Pantoprazole Sodium (Pantoprazole 40 Mg Tablet) 80 mg PO Q12HR [facility] Stop: 09/27/24 08:59 Discontinued Medications Phenobarbital Sodium 260 mg/ (Sodium Chloride 24 ml) 0 mg IVP X1 ONE Stop: 08/27/24 20:44 Last Admin: 08/27/24 22:00 Dose: 260 mg Documented By: BALJIT Comments: double verified dose with Margie ferreira Diazepam (Diazepam Inj 5 Mg/Ml Vial 2 Ml) 5 mg IVP X1 ONE Stop: 08/27/24 16:08 Last Admin: 08/27/24 16:50 Dose: Not Given Documented By: BALJIT Non-Admin Reason: Cancelled by Provider Diazepam (Diazepam Inj 5 Mg/Ml Vial 2 Ml) 10 mg IVP X1 ONE Stop: 08/27/24 16:42 Last Admin: 08/27/24 16:49 Dose: 10 mg Documented By: BALJIT Diazepam (Diazepam Inj 5 Mg/Ml Vial 2 Ml) 5 mg IVP X1 ONE Stop: 08/27/24 19:29 Last Admin: 08/27/24 19:52 Dose: 5 mg Documented By: BALJIT Diazepam (Diazepam Inj 5 Mg/Ml Vial 2 Ml) 10 mg IVP X1 ONE Stop: 08/27/24 20:37 Last Admin: 08/27/24 22:08 Dose: 10 mg Documented By: BALJIT Magnesium Sulfate/Dextrose (Magnesium Sulfate Ivpb) 1 gm in 100 mls @ 100 mls/hr IV X1 ONE Stop: 08/27/24 18:21 Last Infusion: 08/27/24 18:47 Dose: Infused Documented By: Admin: 08/27/24 17:31 Dose: 100 mls/hr Documented By: BALJIT Sodium Chloride (Ns) 1,000 mls @ 120 mls/hr IV .Q8H20M [facility] Stop: 09/26/24 17:22 Last Admin: 08/27/24 17:31 Dose: 120 mls/hr Documented By: BALJIT Ceftriaxone Sodium/Dextrose (Rocephin/D5w 1gm Iv Premix) 1 gm in 50 mls @ 100 mls/hr IV X1 ONE Stop: 08/27/24 21:44 Last Admin: 08/27/24 22:36 Dose: 100 mls/hr Documented By: BALJIT Morphine Sulfate (Morphine Sulf Inj 10 Mg/Ml Vial) 4 mg IVP X1 ONE Stop: 08/27/24 17:37 Last Admin: 08/27/24 17:41 Dose: 4 mg Documented By: BALJIT Octreotide Acetate (Octreotide Acet Inj 50 Mcg/Ml Vial) 50 mcg IV X1 ONE Stop: 08/27/24 20:48 Last Admin: 08/27/24 22:18 Dose: 50 mcg Documented By: BALJIT Ondansetron HCl (Ondansetron Inj 2 Mg/Ml Inj 2 Ml) 4 mg IVP X1 ONE; Protocol Stop: 08/27/24 16:43 Last Admin: 08/27/24 16:50 Dose: 4 mg Documented By: BALJIT Pantoprazole Sodium (Pantoprazole Inj 40 Mg Vial) 40 mg IVP X1 ONE Stop: 08/27/24 19:29 Last Admin: 08/27/24 19:52 Dose: 40 mg Documented By: BALJIT Pantoprazole Sodium (Pantoprazole Inj 40 Mg Vial) 40 mg IVP X1 ONE Stop: 08/27/24 21:00 Last Admin: 08/27/24 22:12 Dose: 40 mg Documented By: BALJIT See above Consultations Consultation(s) initiated? (list below): No Diagnosis Differential diagnosis alcohol: hypomagnesemia, alcohol intoxication, alcohol withdrawal syndrome and alcohol withdrawal seizure Most likely diagnosis given after review of the tests above:: Alcohol withdrawal Admission Indicated Admission indicated?: indicated Admission Request Was there a request for admission?: Yes Admission Attestation Admission request attestation: Discussed case with [] from Hospitalist service regarding admission. Discussed patients ED course, exam findings, labs, and radiology results. The Hospitalist [agrees,declines] to accept the patient for admission. Disposition Plan Disposition Plan: Admit
[2024-08-27 17:08] LABS: Alanine Aminotransferase 46 U/L (10-49); Albumin, Serum 4.7 gm/dL (3.5-5.0); Albumin/Globulin Ratio 1.6 (1.2-2.2); Alcohol, Blood Medical < 10.0 mg/dL (0-10.0); Alkaline Phosphatase 176 U/L (46-116); Anion Gap 18 (7-16); Aspartate Amino Transferase 80 U/L (0-34); BUN/Creatinine Ratio 9 Ratio (12-20); Bilirubin,Total 1.0 mg/dL (0.3-1.2); Blood Urea Nitrogen 8 mg/dL (9-23); Calcium 9.0 mg/dL (8.3-10.6); Calcium (Corrected) 9.0 mg/dL (8.5-10.1); Carbon Dioxide 21.8 mMol/L (20.0-31.0); Chloride 102 mMol/L (98-107); Creatinine (Component) 0.9 mg/dL (0.6-1.3); Globulin 3.0 gm/dL (2.3-3.5); Glucose 65 mg/dL (74-106); Lipase 31 U/L (12-53); Magnesium 1.4 mg/dL (1.6-2.6); Osmolality,Calculated 279 (275-295); Potassium 3.6 mMol/L (3.4-5.1); Sodium 142 mMol/L (136-145); Total Protein 7.7 gm/dL (5.7-8.2); eGFR > 60 See Note
--- NOTE | 2024-08-27 17:09 | XR_ITS ---
Examination: CT brain head without contrast. 2-D sagittal coronal reconstructions Date and time of exam:August 27, 2024, 1911 hours CTDI: vol (mGy):48.3 DLP: (mGycm):960 INDICATIONS: Altered mental status after falling today Technique: Multiple CT axial sections of the brain have been obtained, 5 mm slice thickness. Contrast has not been administered. 2-D sagittal, coronal reconstructions have been obtained Low dose protocols were performed. One or more of the following dose reduction techniques were used; automated exposure control, adjustment of the mA and/or KV according to patient size, use of iterative reconstruction technique. Findings: No significant ventricular enlargement. Intra-axial or extra-axial hemorrhage density is not seen. No mass effect or midline shift Basal cisterns are not remarkable. Fourth ventricle is midline. Cranial vault intact. Impression: Negative for acute hemorrhage, mass effect or midline shift
[2024-08-27 17:16] LABS: Basophils # (Auto) 0.1 Thou/mm3 (0.0-0.2); Basophils % (Auto) 1 % (0-2.5); Eosinophils # (Auto) 0.0 Thou/mm3 (0.0-0.5); Eosinophils % (Auto) 0 % (0-10); Hematocrit 31.4 % (41.0-53.0); Hemoglobin 11.1 g/dL (13.5-16.0); Immature Granulocytes Auto 0.02 Thou/mm3 (0.00-0.00); Lymphocytes # (Auto) 0.4 Thou/mm3 (1.0-4.8); Lymphocytes % (Auto) 4 % (10-50); Mean Corpuscular HGB Conc 35.4 g/dl (31.0-37.0); Mean Corpuscular Hemoglobin 34.3 pg (25.0-35.0); Mean Corpuscular Volume 97 fL (80-100); Monocytes # (Auto) 0.5 Thou/mm3 (0.0-0.8); Monocytes % (Auto) 5 % (0-12); Neutrophils # (Auto) 9.5 Thou/mm3 (1.8-7.7); Neutrophils % (Auto) 91 % (37-80); Nucleated Red Blood Cell # 0.00 Thou/mm3 (0.00-0.00); Nucleated Red Blood Cell % 0 /100 WBC (0); Platelet Count 321 Thou/mm3 (140-440); RDW Standard Deviation 48.1 fL (35.1-43.9); Red Blood Count 3.24 Miln/mm3 (4.50-5.90); White Blood Count 10.4 Thou/mm3 (3.8-10.6)
[2024-08-27] MEDS: SODIUM CHLORIDE 0.9% 1000 ML 1,000 ML 120 ML IV (17:31)
[2024-08-27] MEDS: MORPHINE SULF INJ 10 MG/ML VIAL 4 MG IVP (17:41)
[2024-08-27] MEDS: DIAZEPAM INJ 5 MG/ML VIAL 2 ML IVP (19:52)
--- NOTE | 2024-08-27 20:33 | XR_ITS ---
Examination: CT abdomen with intravenous contrast CT pelvis with intravenous contrast 2-D coronal reconstructions 2-D sagittal reconstructions Date and time of exam:August 27, 2024 2258 hours Comparison June 15, 2024 INDICATIONS: Alcohol withdrawal today with abdominal pain. CTDI: vol (mGy) 5.67 DLP: (mGycm) 300 Technique: Multiple axial sections of the abdomen and pelvis have been obtained. 64 slice high-resolution scanner used. 3 mm axial sections have been obtained, post intravenous injection ECC Isovue 370 2-D sagittal, coronal reconstructions obtained. Low dose protocols were performed. One or more of the following dose reduction techniques were used; automated exposure control, adjustment of the mA and/or KV according to patient size, use of iterative reconstruction technique. Findings: Spleen is not enlarged Cholelithiasis No pancreatic mass No renal or ureteral calculi, no hydronephrosis Aorta normal size No bowel obstruction No pericecal inflammatory change Scattered colonic diverticulosis No diverticulitis Bladder intact No prostatomegaly. IMPRESSION: Cirrhosis, no focal liver lesions Cholelithiasis, negative for cholecystitis No renal or ureteral calculi, no hydronephrosis No CT findings of appendicitis, bowel obstruction or diverticulitis
--- NOTE | 2024-08-27 21:00 | XR_ITS ---
Examination: AP chest single view TECHNIQUE: AP portable semiupright chest single view. Date and time: August 27, 2024, 2118 hours INDICATIONS: Shortness of breath weakness today. FINDINGS: The film is rotated LPO. Normal heart size. The lungs are clear. Intact osseous structures. IMPRESSION: No active disease.
--- NOTE | 2024-08-27 21:09 | ESHP_ITS ---
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 Earlier today he was seen by resident physician and [facility] and was urgently referred to the emergency room due to severe alcohol withdrawal. Patient reports he is having visual and auditory hallucinations, and severe anxiety and tremor. He also complains of severe abdominal pain mostly localized in his right upper quadrant and black tarry stool for the last several days. He reports that he drank 3 bottles of beer yesterday and 2 bottles of beer the day before yesterday. He is trying to cut down on alcohol and was in rehab 1 months ago. Patient was admitted twice within the last months for alcohol withdrawal symptoms however left AMA both times. He denies any fever, chills, chest pain, shortness of breath, bloody stool. In the ED on admission his blood pressure 123/68, pulse 99, respirations 24, temperature 98.4 ?F, oxygen saturation 96% on room air. Labs showed hemoglobin 11.1, hematocrit 31.4%, magnesium 1.4, AST 80, alk phos 176. EKG showed sinus rhythm. Head CT was negative for mass effect or hemorrhage. Chest x-ray was negative. CTAP showed cirrhosis, no focal liver lesions, cholelithiasis, negative for cholecystitis. Patient was given total 15 mg of Valium in the ED, CIWA score at the bedside 35. Patient was given loading dose of phenobarbital to 60 mg and was admitted to ICU for further management. 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 PSH: none. SH: Denies smoking tobacco or using illicit drugs. FH: unknown. Allergies: NKA. Medications: pantoprazole. Review of Systems Review of Systems Systems Reviewed: All systems reviewed, normal except as documented Exam Vital Signs Temp Pulse Resp BP Pulse Ox O2 Del Method 98.1 F 73 18 114/66 98 Room Air 08/27/24 16:58 08/27/24 19:42 08/27/24 19:42 08/27/24 19:42 08/27/24 19:42 08/27/24 19:42 Narrative Exam Gen: Well-developed and well-nourished male in severe distress. HEENT: NCAT, PERRLA, EOMI, MMM, anicteric conjunctivae. CVS: normal S1 and S2. RRR. No M/R/G. Resp: CTA B/L. No rhonchi, rales, crackles or wheezing. Abd: tender throughout, most pronounced in RUQ, voluntary guarding noted, non- distended. BS+ in all 4 quadrants. MSK: Good ROM in BUE & BLE. No edema or rash. Neuro: CN II-XII grossly intact. Strength 5/5 in BUE & BLE. Alert and oriented x3. Results: Labs 08/28/24 04:35 08/28/24 04:35 Labs: Short CBC 08/27/24 Range/Units 16:20 WBC 10.4 (3.8-10.6) Thou/mm3 Hgb 11.1 L (13.5-16.0) g/dL Hct 31.4 L (41.0-53.0) % Plt Count 321 D (140-440) Thou/mm3 BMP 08/27/24 16:20 Sodium 142 Potassium 3.6 Chloride 102 Carbon Dioxide 21.8 BUN 8 L Creatinine 0.9 Glucose 65 L Calcium 9.0 Liver Function 08/27/24 Range/Units 16:20 Total Bilirubin 1.0 (0.3-1.2) mg/dL AST 80 H (0-34) U/L ALT 46 (10-49) U/L Alkaline Phosphatase 176 H (46-116) U/L Albumin 4.7 (3.5-5.0) gm/dL Quality Measures Quality Measures VTE prophylaxis Medications Home Medications and Allergies Allergies Allergy/AdvReac Type Severity Reaction Status Date / Time No Known Allergies Allergy Verified 08/27/24 16:19 Visit Medications Phenobarbital Sodium 130 mg/ (Sodium Chloride 12 ml) 0 mg IVP Q30MIN PRN PRN Reason: ALCOHOL WITHDRAWAL CIWA >25 Stop: 09/10/24 21:05 Octreotide Acetate 1,000 mcg/ (Sodium Chloride) 102 mls @ 5.1 mls/hr IV .Q20H [facility]; Protocol Stop: 08/28/24 16:48 Ceftriaxone Sodium/Dextrose (Rocephin/D5w 1gm Iv Premix) 1 gm in 50 mls @ 100 mls/hr IV QDAY [facility] Stop: 09/03/24 21:00 Ceftriaxone Sodium/Dextrose (Rocephin/D5w 1gm Iv Premix) 1 gm in 50 mls @ 100 mls/hr IV X1 ONE Stop: 08/27/24 21:44 Morphine Sulfate (Morphine Sulf Inj 10 Mg/Ml Vial) 2 mg IVP Q2H PRN PRN Reason: PAIN SCALE 7-10 (Severe Stop: 09/01/24 20:56 Pantoprazole Sodium (Pantoprazole 40 Mg Tablet) 80 mg PO Q12HR [facility] Stop: 09/27/24 08:59 Discontinued Medications Phenobarbital Sodium 260 mg/ (Sodium Chloride 24 ml) 0 mg IVP X1 ONE Stop: 08/27/24 20:44 Diazepam (Diazepam Inj 5 Mg/Ml Vial 2 Ml) 5 mg IVP X1 ONE Stop: 08/27/24 16:08 Last Admin: 08/27/24 16:50 Dose: Not Given Diazepam (Diazepam Inj 5 Mg/Ml Vial 2 Ml) 10 mg IVP X1 ONE Stop: 08/27/24 16:42 Last Admin: 08/27/24 16:49 Dose: 10 mg Diazepam (Diazepam Inj 5 Mg/Ml Vial 2 Ml) 5 mg IVP X1 ONE Stop: 08/27/24 19:29 Last Admin: 08/27/24 19:52 Dose: 5 mg Diazepam (Diazepam Inj 5 Mg/Ml Vial 2 Ml) 10 mg IVP X1 ONE Stop: 08/27/24 20:37 Magnesium Sulfate/Dextrose (Magnesium Sulfate Ivpb) 1 gm in 100 mls @ 100 mls/hr IV X1 ONE Stop: 08/27/24 18:21 Last Infusion: 08/27/24 18:47 Dose: Infused Sodium Chloride (Ns) 1,000 mls @ 120 mls/hr IV .Q8H20M [facility] Stop: 09/26/24 17:22 Last Admin: 08/27/24 17:31 Dose: 120 mls/hr Morphine Sulfate (Morphine Sulf Inj 10 Mg/Ml Vial) 4 mg IVP X1 ONE Stop: 08/27/24 17:37 Last Admin: 08/27/24 17:41 Dose: 4 mg Octreotide Acetate (Octreotide Acet Inj 50 Mcg/Ml Vial) 50 mcg IV X1 ONE Stop: 08/27/24 20:48 Ondansetron HCl (Ondansetron Inj 2 Mg/Ml Inj 2 Ml) 4 mg IVP X1 ONE; Protocol Stop: 08/27/24 16:43 Last Admin: 08/27/24 16:50 Dose: 4 mg Pantoprazole Sodium (Pantoprazole Inj 40 Mg Vial) 40 mg IVP X1 ONE Stop: 08/27/24 19:29 Last Admin: 08/27/24 19:52 Dose: 40 mg Pantoprazole Sodium (Pantoprazole Inj 40 Mg Vial) 40 mg IVP X1 ONE Stop: 08/27/24 21:00 Assessment & Plan Plan Patient is a 29 years old male with past medical history of alcohol use disorder, 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 Neuro: #Alcohol withdrawal. #Alcohol use disorder. Patient's CIWA score was 35 after 15 mg of Valium in the ED. He was given loading dose of phenobarbital 260 mg IV. Plan: - continue ICU monitoring with frequent CIWA assessments. - phenobarbital 130 mg IV Q30MIN for CIWA > 20. Cardiovascular: No active problem. Respiratory: No active problem. Gastrointestinal: #Acute alcoholic hepatitis. #Cirrhosis with esophageal varices. #Upper GI bleeding. Patient reported black tarry stool over the last several days, hgb dropped from 13.5 10 days ago to 11.1 today. Patient reports severe abdominal pain mostly localized in RUQ. CTAP showed cirrhosis, no focal liver lesions, cholelithiasis, negative for cholecystitis. Labs showed AST 80, ALT 46, ALP 176. Initial glucose was 65, improved to 101. Child-Jacobson class A, MELD 3.0 8 points. Plan: - GI consulted. - continue octreotide drip. - protonix 80 mg BID IV. - NPO. Renal: No active problem. Endocrine: No active problem. Infectious Disease: No active problem. Hematology/Oncology: #Acute blood loss anemia. Patient presented complaining of black tarry stools, labs showed hemoglobin 11.1, RBCs 3.24, hematocrit 31.4%. 10 days ago his hemoglobin was 13.5. Plan: - Repeat CBC, type and screen. - Transfuse if hemoglobin < 7. - GI is on board, pending EGD. Diet: NPO. DVT prophylaxis: SCDs. GI prophylaxis: Protonix. Code status: FULL CODE. Disposition: ICU. Plan of care discussed with ICU attending Dr. Allen. Chris Serrano MD, PGY 3. Disclaimer: This note was dictated by speech recognition. Minor errors in household worker may be present due to voice recognition software. Attending Provider Attestation/Addendum Patient is being admitted for alcohol withdrawal. The patient is awake and alert follows commands. He has tremulousness. He denies seizure. I discussed with and supervised the resident physician who took care of this patient. I agree with the assessment and plan as above. Critical care time 30 minutes
[2024-08-27] MEDS: PHENOBARBITAL IVP (22:00)
[2024-08-27] MEDS: SODIUM CHLORIDE 0.9% IVP (22:00)
[2024-08-27] MEDS: [UNRECOGNIZED DRUG - OTHER] IVP (22:00)
--- NOTE | 2024-08-27 22:00 | PD.IMCONS ---
HPI Data of Consult Requesting Physician: Jony Allen MD Primary Care Provider: Daren Lockwood MD Consult Narrative Reason for consult: ALOC, melena History of present illness: 29 years old male being evaluated the request of the emergency room physician therapist's assistant for altered mental status as well as melanotic stools with a dropping hemoglobin hematocrit to 11.1 and 31.4 No history obtained from the patient as patient is in alcohol withdrawal cc:: cc: Jony Allen MD Review of Systems Review of Systems ROS Unobtainable: unobtainable due to medical condition Meds Home Medications and Allergies Allergies Allergy/AdvReac Type Severity Reaction Status Date / Time No Known Allergies Allergy Verified 08/27/24 16:19 Exam Vital Signs Temp Pulse Resp BP Pulse Ox O2 Del Method 98.1 F 73 18 114/66 98 Room Air 08/27/24 16:58 08/27/24 19:42 08/27/24 19:42 08/27/24 19:42 08/27/24 19:42 08/27/24 19:42 Constitutional Comments: Chronically ill-appearing and and in alcohol withdrawal Routine Respiratory Exam Comments: Normal to auscultation Routine Abdominal Exam Comments: Tender positive bowel sounds Results Labs 08/27/24 16:20 08/27/24 16:20 Labs: Short CBC 08/27/24 Range/Units 16:20 WBC 10.4 (3.8-10.6) Thou/mm3 Hgb 11.1 L (13.5-16.0) g/dL Hct 31.4 L (41.0-53.0) % Plt Count 321 D (140-440) Thou/mm3 BMP 08/27/24 16:20 Sodium 142 Potassium 3.6 Chloride 102 Carbon Dioxide 21.8 BUN 8 L Creatinine 0.9 Glucose 65 L Calcium 9.0 Liver Function 08/27/24 Range/Units 16:20 Total Bilirubin 1.0 (0.3-1.2) mg/dL AST 80 H (0-34) U/L ALT 46 (10-49) U/L Alkaline Phosphatase 176 H (46-116) U/L Albumin 4.7 (3.5-5.0) gm/dL Assessment and Plan Additional Assessment & Plan Additional Plan: # Altered mental status due to acute alcohol withdrawal # Acute GI bleed most likely upper either due to mucosal oozing of blood due to chronic liver disease or esophageal variceal bleeding Plan Aggressive treatment for alcohol withdrawal Serial CBC IV Protonix 80 mg IV push every 12 Octreotide 50 mics IV push and then 50 mcg/h infusion N.p.o. Consent will be obtained from the family members for fiberoptic esophagogastroduodenoscopy with possible biopsy possible therapeutic intervention under intravenous moderate sedation Prognosis guarded Thank you very much for the opportunity to participate in the care of this patient
[2024-08-27 22:02] LABS: Beta Hydroxybutyrate 0.4 mmol/L (<0.6)
[2024-08-27] MEDS: OCTREOTIDE ACET INJ 1,000 MCG in SODIUM CHLORIDE 0.9% 100 ML 5.1 MCG IV (22:18)
[2024-08-27] MEDS: OCTREOTIDE ACET INJ 50 mCg/ML VIAL IV (22:18)
[2024-08-27] MEDS: cefTRIAXone/D5w 1gm IV premix 1 GM/50 ML BAG IV (22:36)
[2024-08-27] MEDS: MORPHINE SULF INJ 10 MG/ML VIAL 2 MG IVP (23:40)
[2024-08-28] VITALS (114 sets, daily range): BP systolic 104–128; BP diastolic 64–90; PULSE 30–71; RESP 6–99; TEMP 36.2–36.6; O2SAT 85–100; BMI 20.8
[2024-08-28] MEDS: PHENobarbital Inj 130 MG, SODIUM CHLORIDE 0.9% FLUSH 12 ML IVP (00:02)
[2024-08-28 00:03] LABS: Collection Type, Urine Voided; Squamous Epithelial Cell,Urine 0 /hpf (0-5)
[2024-08-28 00:06] LABS: Basophils # (Auto) 0.0 Thou/mm3 (0.0-0.2); Basophils % (Auto) 1 % (0-2.5); Eosinophils # (Auto) 0.0 Thou/mm3 (0.0-0.5); Eosinophils % (Auto) 0 % (0-10); Hematocrit 29.2 % (41.0-53.0); Hemoglobin 10.4 g/dL (13.5-16.0); Immature Granulocytes Auto 0.01 Thou/mm3 (0.00-0.00); Lymphocytes # (Auto) 1.5 Thou/mm3 (1.0-4.8); Lymphocytes % (Auto) 22 % (10-50); Mean Corpuscular HGB Conc 35.6 g/dl (31.0-37.0); Mean Corpuscular Hemoglobin 34.7 pg (25.0-35.0); Mean Corpuscular Volume 97 fL (80-100); Monocytes # (Auto) 0.5 Thou/mm3 (0.0-0.8); Monocytes % (Auto) 7 % (0-12); Neutrophils # (Auto) 4.8 Thou/mm3 (1.8-7.7); Neutrophils % (Auto) 70 % (37-80); Nucleated Red Blood Cell # 0.00 Thou/mm3 (0.00-0.00); Nucleated Red Blood Cell % 0 /100 WBC (0); Platelet Count 272 Thou/mm3 (140-440); RDW Standard Deviation 49.6 fL (35.1-43.9); Red Blood Count 3.00 Miln/mm3 (4.50-5.90); White Blood Count 6.8 Thou/mm3 (3.8-10.6)
[2024-08-28 00:13] LABS: INR 1.0 (0.9-1.3); Partial Thromboplastin Time 28.4 Seconds (22.0-36.0); Prothrombin Time 11.4 Seconds (9.0-12.2)
[2024-08-28 00:20] LABS: Amorphous Crystals,Urine Present (Absent); Bilirubin,Urine Negative (Negative); Blood,Urine Negative (Negative); Clarity,Urine Clear (Clear/Hazy); Color,Urine Yellow (Lt Yel-Yel); Culture Indicated,Urine Not Indicated; Glucose, Urine Negative (Negative); Ketones,Urine 3+ (Negative); Leukocyte Esterase,Urine Negative (Negative); Nitrite,Urine Negative (Negative); PH,Urine 6.0 (5.0-7.0); Protein,Urine Negative (Neg - Trace); RBC,Urine 1 /hpf (0-3); Specific Gravity,Urine 1.038 (1.001-1.035); Urobilinogen,Urine Negative mg/dL (0.0-1.0); WBC,Urine < 1 /hpf (0-5)
[2024-08-28 00:33] LABS: Amphetamine/Methamp Scrn,U Negative (Negative); Barbiturate Screen,Urine Positive (Negative); Benzodiazepines Screen,Urine Positive (Negative); Benzoylecgonine Screen, Ur Negative (Negative); Fentanyl Screen,Urine Negative (Negative); Opiate Screen,Urine Positive (Negative); THC Screen,Urine Negative (Negative)
[2024-08-28 00:59] LABS: Ammonia 38 uMol/L (11-32)
[2024-08-28] MEDS: DEXTROSE 5%-NS 500 ML 125 ML IV (01:00)
[2024-08-28] MEDS: SODIUM CHLORIDE 0.9% 1000 ML 1,000 ML 100 ML IV ×2 (02:45→12:08)
[2024-08-28] MEDS: Magnesium Sulfate 2 GM Ivpb 2 GM/50 ML BAG IV (02:51)
[2024-08-28] MEDS: MORPHINE SULF INJ 10 MG/ML VIAL 2 MG IVP (04:41)
[2024-08-28 05:59] LABS: Basophils # (Auto) 0.0 Thou/mm3 (0.0-0.2); Basophils % (Auto) 1 % (0-2.5); Eosinophils # (Auto) 0.1 Thou/mm3 (0.0-0.5); Eosinophils % (Auto) 2 % (0-10); Hematocrit 29.9 % (41.0-53.0); Hemoglobin 10.4 g/dL (13.5-16.0); Immature Granulocytes Auto 0.01 Thou/mm3 (0.00-0.00); Lymphocytes # (Auto) 1.5 Thou/mm3 (1.0-4.8); Lymphocytes % (Auto) 37 % (10-50); Mean Corpuscular HGB Conc 34.8 g/dl (31.0-37.0); Mean Corpuscular Hemoglobin 34.8 pg (25.0-35.0); Mean Corpuscular Volume 100 fL (80-100); Monocytes # (Auto) 0.4 Thou/mm3 (0.0-0.8); Monocytes % (Auto) 9 % (0-12); Neutrophils # (Auto) 2.0 Thou/mm3 (1.8-7.7); Neutrophils % (Auto) 51 % (37-80); Nucleated Red Blood Cell # 0.00 Thou/mm3 (0.00-0.00); Nucleated Red Blood Cell % 0 /100 WBC (0); Platelet Count 292 Thou/mm3 (140-440); RDW Standard Deviation 50.4 fL (35.1-43.9); Red Blood Count 2.99 Miln/mm3 (4.50-5.90); White Blood Count 4.0 Thou/mm3 (3.8-10.6)
[2024-08-28 06:11] LABS: INR 1.0 (0.9-1.3); Partial Thromboplastin Time 29.6 Seconds (22.0-36.0); Prothrombin Time 11.4 Seconds (9.0-12.2)
[2024-08-28 06:27] LABS: Alanine Aminotransferase 33 U/L (10-49); Albumin, Serum 3.8 gm/dL (3.5-5.0); Albumin/Globulin Ratio 1.5 (1.2-2.2); Alkaline Phosphatase 145 U/L (46-116); Anion Gap 11 (7-16); Aspartate Amino Transferase 47 U/L (0-34); BUN/Creatinine Ratio 6 Ratio (12-20); Bilirubin,Total 1.4 mg/dL (0.3-1.2); Blood Urea Nitrogen < 5 mg/dL (9-23); Calcium 8.2 mg/dL (8.3-10.6); Calcium (Corrected) 8.4 mg/dL (8.5-10.1); Carbon Dioxide 25.5 mMol/L (20.0-31.0); Cardiac Risk Estimate 1.8 RATIO (4.0-6.7); Chloride 102 mMol/L (98-107); Cholesterol 162 mg/dL (132-200); Creatinine (Component) 0.8 mg/dL (0.6-1.3); Estimated Creatinine Clearance 104.6 mL/min (>60); Globulin 2.6 gm/dL (2.3-3.5); Glucose 165 mg/dL (74-106); HDL Cholesterol 89 mg/dL (40-60); LDL Cholesterol,Calculated 51 mg/dL (0-130); Magnesium 2.4 mg/dL (1.6-2.6); Osmolality,Calculated 276 (275-295); Phosphorous 2.7 mg/dL (2.4-5.1); Potassium 4.0 mMol/L (3.4-5.1); Sodium 138 mMol/L (136-145); Total Protein 6.4 gm/dL (5.7-8.2); Triglycerides 109 mg/dL (30-150); eGFR > 60 See Note
[2024-08-28] MEDS: DIAZEPAM INJ 5 MG/ML VIAL 2 ML IVP ×2 (08:15→12:07)
[2024-08-28] MEDS: FOLIC ACID INJ 1 MG/0.2 ML IVP (08:15)
[2024-08-28] MEDS: THIAMINE INJ 100 MG/ML VIAL 2 ML IVP ×2 (08:16→20:46)
[2024-08-28 09:35] LABS: Glucose Estimated Average 105 mg/dL (80-131); Hemoglobin A1C 5.3 % Hgb (4.8-6.0)
[2024-08-28 09:44] LABS: Ferritin 54 ng/mL (10.5-307.3); Iron 276 mcg/dL (65-175); Percent Iron Saturation 82 % (20-55); Total Iron Binding Capacity 336 mcg/dL (250-425); Unsaturated Iron Binding 60 (225-295)
--- NOTE | 2024-08-28 10:05 | EKG_ITS ---
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
[2024-08-28] MEDS: MORPHINE SULF INJ 10 MG/ML VIAL IVP ×3 (11:03→23:20)
--- NOTE | 2024-08-28 11:15 | PD.RESPRO ---
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 Earlier today he was seen by resident physician and [facility] and was urgently referred to the emergency room due to severe alcohol withdrawal. Patient reports he is having visual and auditory hallucinations, and severe anxiety and tremor. He also complains of severe abdominal pain mostly localized in his right upper quadrant and black tarry stool for the last several days. He reports that he drank 3 bottles of beer yesterday and 2 bottles of beer the day before yesterday. He is trying to cut down on alcohol and was in rehab 1 months ago. Patient was admitted twice within the last months for alcohol withdrawal symptoms however left AMA both times. He denies any fever, chills, chest pain, shortness of breath, bloody stool. In the ED on admission his blood pressure 123/68, pulse 99, respirations 24, temperature 98.4 ?F, oxygen saturation 96% on room air. Labs showed hemoglobin 11.1, hematocrit 31.4%, magnesium 1.4, AST 80, alk phos 176. EKG showed sinus rhythm. Head CT was negative for mass effect or hemorrhage. Chest x-ray was negative. CTAP showed cirrhosis, no focal liver lesions, cholelithiasis, negative for cholecystitis. Patient was given total 15 mg of Valium in the ED, CIWA score at the bedside 35. Patient was given loading dose of phenobarbital to 60 mg and was admitted to ICU for further management. 08/28/2024: Patient seen and examined at bedside, CIWA has improved remarkably, patient did receive phenobarbital 260 x1 and 130 x 1 overnight since admission, this morning we started patient on CIWA protocol with IV diazepam and started patient on Librium 50 mg twice daily. Patient otherwise complains of abdominal epigastric pain for which patient is receiving morphine as needed, will give Tylenol x 1, increase standing dose 200 twice daily for Wernicke's encephalopathy prevention IV daily 2 doses drug abuse social worker. Repeat EKG shows sinus bradycardia, per chart review patient has been bradycardic at times during previous admissions will benefit from outpatient cardiology workup. Patient does not seem to have acute alcoholic hepatitis, has minimal transaminitis bilirubin less than 2 INR within normal limits, otherwise patient cirrhosis child Jacobson class A, MELD sodium score of 9, has good prognosis educated on bedside on discontinuing alcohol use outpatient. Does have underlying cholelithiasis, no active acute cholecystitis, ammonia is mildly elevated, low suspicion of hepatic encephalopathy. Mild hypocalcemia noted on labs, will monitor. Discussed with table operator, considering patient's alcohol withdrawal and bradycardia patient's EGD postponed to tomorrow, increase Protonix dose to 80 mg IV twice daily. Will continue to monitor today in ICU with CIWA protocol and phenobarbital/management of alcohol withdrawal as needed. Exam Vital Signs Temp Pulse Resp BP Pulse Ox O2 Del Method O2 Flow Rate 97.1 F 41 L 12 107/71 98 Room Air 2 08/28/24 08:01 08/28/24 09:30 08/28/24 09:30 08/28/24 09:30 08/28/24 09:30 08/28/24 08:01 08/27/24 21:30 Narrative Exam Gen: Well-developed and well-nourished male in moderate distress. HEENT: NCAT, PERRLA, EOMI, MMM, anicteric conjunctivae. CVS: normal S1 and S2. RRR. No M/R/G. Resp: CTA B/L. No rhonchi, rales, crackles or wheezing. Abd: tender throughout, most pronounced in RUQ and epigastrium, voluntary guarding noted, non-distended. BS+ in all 4 quadrants. MSK: Good ROM in BUE & BLE. No edema or rash. Neuro: CN II-XII grossly intact. Strength 5/5 in BUE & BLE. Alert and oriented x3. CIWA 16. Objective Labs 08/31/24 05:49 08/31/24 05:49 Labs: Laboratory Results - last 24 hr 08/27/24 08/27/24 08/27/24 16:09 16:20 21:35 WBC 10.4 RBC 3.24 L Hgb 11.1 L Hct 31.4 L MCV 97 MCH 34.3 MCHC 35.4 RDW Std Deviation 48.1 H Plt Count 321 D Neut % (Auto) 91 H Lymph % (Auto) 4 L [place] % (Auto) 5 Eos % (Auto) 0 Baso % (Auto) 1 Neut # (Auto) 9.5 H Lymph # (Auto) 0.4 L [place] # (Auto) 0.5 Eos # (Auto) 0.0 Baso # (Auto) 0.1 Immature Gran # (Auto) 0.02 H Absolute Nucleated RBC 0.00 Immature Gran % 0 Nucleated RBC % 0 PT 11.4 INR 1.0 APTT 28.4 Sodium 142 Potassium 3.6 Chloride 102 Carbon Dioxide 21.8 Anion Gap 18 H BUN 8 L Creatinine 0.9 Estim Creat Clear Calc Not Performed. eGFR > 60 BUN/Creatinine Ratio 9 L Glucose [address] Glu mg/dL Hemoglobin A1c Calculated Osmolality 279 Lactic Acid 1.7 Calcium 9.0 Corrected Calcium 9.0 Phosphorus Magnesium 1.4 L Iron TIBC Iron Saturation Unsat Iron Binding Ferritin Total Bilirubin 1.0 AST 80 H ALT 46 Alkaline Phosphatase 176 H Ammonia Total Protein 7.7 Albumin 4.7 Globulin 3.0 Albumin/Globulin Ratio 1.6 Triglycerides Cholesterol LDL Cholesterol, Calc HDL Cholesterol Cholesterol/HDL Ratio Lipase 31 Beta-Hydroxybutyrate/Acetoacetate 0.4 Ur Collection Type Urine Color Urine Clarity Urine pH Ur Specific [place] Urine Protein Urine Glucose (UA) Urine Ketones Urine Blood Urine Nitrite Urine Bilirubin Urine Urobilinogen (Auto) Ur Leukocyte Esterase Urine RBC Urine WBC Ur Squamous Epith Cells Amorphous Crystals Urine Bacteria Ur Culture Indicated? Urine Opiates Screen Positive A Urine Fentanyl Screen Negative Ur Barbiturates Screen Positive A U Amphetamin/Meth Scrn Negative U Benzodiazepines Scrn Positive A U Cocaine Metab Screen Negative U Marijuana (THC) Screen Negative Ethyl Alcohol < 10.0 Blood Type Antibody Screen Blood Bank Wristband ID 08/27/24 08/27/24 08/28/24 23:10 23:55 00:28 WBC 6.8 RBC 3.00 L Hgb 10.4 L Hct 29.2 L MCV 97 MCH 34.7 MCHC 35.6 RDW Std Deviation 49.6 H Plt Count 272 D Neut % (Auto) 70 Lymph % (Auto) 22 [place] % (Auto) 7 Eos % (Auto) 0 Baso % (Auto) 1 Neut # (Auto) 4.8 Lymph # (Auto) 1.5 [place] # (Auto) 0.5 Eos # (Auto) 0.0 Baso # (Auto) 0.0 Immature Gran # (Auto) 0.01 H Absolute Nucleated RBC 0.00 Immature Gran % 0 Nucleated RBC % 0 PT INR APTT Sodium Potassium Chloride Carbon Dioxide Anion Gap BUN Creatinine Estim Creat Clear Calc eGFR BUN/Creatinine Ratio Glucose Estimated Ave Glu mg/dL Hemoglobin A1c Calculated Osmolality Lactic Acid Calcium Corrected Calcium Phosphorus Magnesium Iron TIBC Iron Saturation Unsat Iron Binding Ferritin Total Bilirubin AST ALT Alkaline Phosphatase Ammonia 38 H Total Protein Albumin Globulin Albumin/Globulin Ratio Triglycerides Cholesterol LDL Cholesterol, Calc HDL Cholesterol Cholesterol/HDL Ratio Lipase Beta-Hydroxybutyrate/Acetoacetate Ur Collection Type Voided Urine Color Yellow Urine Clarity Clear Urine pH 6.0 Ur Specific [place] 1.038 H Urine Protein Negative Urine Glucose (UA) Negative Urine Ketones 3+ A Urine Blood Negative Urine Nitrite Negative Urine Bilirubin Negative Urine Urobilinogen (Auto) Negative Ur Leukocyte Esterase Negative Urine RBC 1 Urine WBC < 1 Ur Squamous Epith Cells 0 Amorphous Crystals Present A Urine Bacteria None Ur Culture Indicated? Not Indicated Urine Opiates Screen Urine Fentanyl Screen Ur Barbiturates Screen U Amphetamin/Meth Scrn U Benzodiazepines Scrn U Cocaine Metab Screen U Marijuana (THC) Screen Ethyl Alcohol Blood Type O Positive Antibody Screen NEGATIVE Blood Bank Wristband ID Yes 08/28/24 04:35 WBC 4.0 D RBC 2.99 L Hgb 10.4 L Hct 29.9 L MCV 100 MCH 34.8 MCHC 34.8 RDW Std Deviation 50.4 H Plt Count 292 Neut % (Auto) 51 Lymph % (Auto) 37 [place] % (Auto) 9 Eos % (Auto) 2 Baso % (Auto) 1 Neut # (Auto) 2.0 Lymph # (Auto) 1.5 [place] # (Auto) 0.4 Eos # (Auto) 0.1 Baso # (Auto) 0.0 Immature Gran # (Auto) 0.01 H Absolute Nucleated RBC 0.00 Immature Gran % 0 Nucleated RBC % 0 PT 11.4 INR 1.0 APTT 29.6 Sodium 138 Potassium 4.0 Chloride 102 Carbon Dioxide 25.5 Anion Gap 11 BUN < 5 L Creatinine 0.8 Estim Creat Clear Calc 104.6 eGFR > 60 BUN/Creatinine Ratio 6 L Glucose [address] Glu mg/dL 105 Hemoglobin A1c 5.3 Calculated Osmolality 276 Lactic Acid Calcium 8.2 L Corrected Calcium 8.4 L Phosphorus 2.7 Magnesium 2.4 Iron 276 H TIBC 336 Iron Saturation 82 H Unsat Iron Binding 60 L Ferritin 54 Total Bilirubin 1.4 H AST 47 H ALT 33 Alkaline Phosphatase 145 H D Ammonia Total Protein 6.4 Albumin 3.8 D Globulin 2.6 Albumin/Globulin Ratio 1.5 Triglycerides 109 Cholesterol 162 LDL Cholesterol, Calc 51 HDL Cholesterol 89 H Cholesterol/HDL Ratio 1.8 L Lipase Beta-Hydroxybutyrate/Acetoacetate Ur Collection Type Urine Color Urine Clarity Urine pH Ur Specific [place] Urine Protein Urine Glucose (UA) Urine Ketones Urine Blood Urine Nitrite Urine Bilirubin Urine Urobilinogen (Auto) Ur Leukocyte Esterase Urine RBC Urine WBC Ur Squamous Epith Cells Amorphous Crystals Urine Bacteria Ur Culture Indicated? Urine Opiates Screen Urine Fentanyl Screen Ur Barbiturates Screen U Amphetamin/Meth Scrn U Benzodiazepines Scrn U Cocaine Metab Screen U Marijuana (THC) Screen Ethyl Alcohol Blood Type Antibody Screen Blood Bank Wristband ID Quality Measures Quality Measures VTE prophylaxis Assessment & Plan Assessment Current Active Medications: Generic Name Dose Route Start Last Admin Trade Name Freq PRN Reason Stop Dose Admin Chlordiazepoxide HCl 50 mg 08/28/24 21:00 Chlordiazepoxide Hcl 25 Mg Capsule PO 09/02/24 20:59 BID APOORVA Phenobarbital Sodium 130 mg/ 0 mg 08/27/24 23:09 08/28/24 00:02 Sodium Chloride 12 ml IVP 09/10/24 21:05 130 mg Q30MIN PRN Administration ALCOHOL WITHDRAWAL CIWA >20 Diazepam 2.5 mg 08/28/24 06:58 Diazepam Inj 5 Mg/Ml Vial 2 Ml IVP 09/02/24 06:57 Q2HR PRN CIWA SCORE 8-13 Diazepam 5 mg 08/28/24 06:58 Diazepam Inj 5 Mg/Ml Vial 2 Ml IVP 09/02/24 06:57 Q2HR PRN CIWA SCORE 14-19 Diazepam 10 mg 08/28/24 06:58 Diazepam Inj 5 Mg/Ml Vial 2 Ml IVP 09/02/24 06:57 Q2HR PRN CIWA SCORE 20-25 Diazepam 10 mg 08/28/24 06:58 Diazepam Inj 5 Mg/Ml Vial 2 Ml IVP X1 PRN Breakthrough Agitation Folic Acid 1 mg 08/28/24 09:00 08/28/24 08:15 Folic Acid Inj 1 Mg/0.2 Ml IVP 08/30/24 08:59 1 mg QDAY APOORVA Administration Octreotide Acetate 1,000 mcg/ 102 mls @ 5.1 mls/hr 08/27/24 20:49 08/27/24 22:18 Sodium Chloride IV 07/22/25 16:48 50 mcg/hr .Q20H APOORVA 5.1 mls/hr Administration Protocol 50 MCG/HR Ceftriaxone Sodium/Dextrose 1 gm in 50 mls @ 100 mls/hr 08/28/24 21:00 Rocephin/D5w 1gm Iv Premix IV 09/04/24 20:59 QDAY APOORVA Sodium Chloride 1,000 mls @ 100 mls/hr 08/28/24 06:33 08/28/24 02:45 Ns IV 08/28/24 12:44 100 mls/hr .Q10H ONE Administration Morphine Sulfate 1 mg 08/28/24 08:04 08/28/24 11:03 Morphine Sulf Inj 10 Mg/Ml Vial IVP 09/01/24 20:56 1 mg Q6HR PRN Administration PAIN SCALE 7-10 (Severe Pantoprazole Sodium 40 mg 08/28/24 21:00 Pantoprazole Inj 40 Mg Vial IVP 09/27/24 20:59 BID APOORVA Thiamine HCl 100 mg 08/28/24 09:00 08/28/24 08:16 Thiamine Inj 100 Mg/Ml Vial 2 Ml IVP 09/27/24 08:59 100 mg BID APOORVA Administration Plan Patient is a 29 years old male with past medical history of alcohol use disorder, 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 Neuro: #Alcohol dependence with withdrawal. #Alcohol use disorder Patient's CIWA score was 35 after 15 mg of Valium in the ED. He was given loading dose of phenobarbital 260 mg IV. Patient has history of multiple admissions to the facility for alcohol withdrawal, was seen outpatient at [facility] for severe alcohol withdrawal, presented to ED for evaluation. Patient was prescribed Librium outpatient for management of alcohol withdrawal, patient denies taking any medication, reports that it got lost. Plan: - continue ICU monitoring with frequent CIWA assessments. - CIWA monitoring with Valium per CIWA protocol - Chlordiazepoxide 50mg twice daily - Will consider phenobarbital pushes as needed - IV thiamine twice daily, IV folate daily Cardiovascular: #Sinus bradycardia Patient has asymptomatic sinus bradycardia, repeat EKG today shows sinus bradycardia as well. Patient is significantly bradycardic when sleeping. No history of any cardiac disease, has never seen a publications manager outpatient. - Consider cardiac workup outpatient Respiratory: No active problem. Gastrointestinal: #Alcohol-related liver disease #Cirrhosis with esophageal varices. #Upper GI bleeding. #Cholelithiasis Patient reported black tarry stool over the last several days, hgb dropped from 13.5 10 days ago to 11.1 today. Patient reports severe abdominal pain mostly localized in RUQ/epigastrium. CTAP showed cirrhosis, no focal liver lesions, cholelithiasis, negative for cholecystitis. Labs showed AST 80, ALT 46, ALP 176. Initial glucose was 65, improved to 101. Child-Jacobson class A, MELD Na 9 points EGD 08/12: Grade 1 EV Minimally elevated Ammonia, no concern of hepatic encephalopathy Per review of records patient's alpha-1 antitrypsin negative, copper low/normal, LENA negative Patient had elevation of iron levels in the past. Iron levels elevated noted again, ferritin within normal limits. Plan: - GI consulted, EGD scheduled for a.m. - Continue octreotide drip. - Protonix 80 mg BID IV. - NPO. - Ordered HFE gene mutation testing, follow-up out-patient Renal: #Mild hypocalcemia Corrected calcium 8.4 - Follow calcium in a.m. Endocrine: No active problem. Infectious Disease: No active problem. Hematology/Oncology: #Acute blood loss anemia. Patient presented complaining of black tarry stools, labs showed hemoglobin 11.1, RBCs 3.24, hematocrit 31.4%. 10 days ago his hemoglobin was 13.5. Plan: - Repeat CBC, type and screen. - Transfuse if hemoglobin < 7. - GI is on board, pending EGD. Diet: NPO. DVT prophylaxis: SCDs. GI prophylaxis: Protonix. Code status: FULL CODE. Disposition: ICU. Case discussed with Attending pad extractor tender Dr. Enrico Farah MD. Landen Fernandez MD Internal medicine PGY 2 Disclaimer: This note was dictated by speech recognition. Minor errors in bereavement counselor may be present due to voice recognition software. Attending Provider Attestation/Addendum Patient seen and examined with the above resident, Landen Fernandez MD. I agree with the findings, assessment, and plan of care as documented except for any differences below. Patient admitted with recurrent alcohol withdrawal syndrome, course complicated by presence of delirium tremens. Patient was at appropriately loaded with phenobarbital and now placed on Librium taper with breakthrough diazepam as needed. Patient's respiratory status remained stable. He continues to have hallucinations at this point warranting close monitoring care only available in the ICU in case requirement for escalation. Patient counseled on importance of cessation of alcohol/abstinence in the long run though this will be due to be recounseled on multiple occasions during this hospital course to optimize his status in the future. Patient also having significant abdominal pain and though he does not have evidence of significant severe alcoholic hepatitis, capsular irritation may be the presentation versus biliary source given imaging findings. No intervention at this point for lithiasis. Adequate pain control cautiously with use of opiates in the setting of combined benzodiazepine use. Patient remains NPO. No evidence of significant pancreatitis at this point. Patient also with significant GI bleed placed on octreotide and PPI. Once he has been optimized from alcohol withdrawal syndrome, EGD should be performed by GI is amenable to this. Patient remains on telemetry with evidence of bradycardia. EKG confirms that this is sinus bradycardia and is may be related to sedation effect or medications. No plan for intervention at this point. Total critical care time: I personally spent 35 minutes for review of physiologic parameters, directing plan of care throughout the day, coordination of care with other subspecialists, and counseling patient at bedside. This is exclusive of time spent teaching of staff performing separate billable procedures. Patient required critical care services for alcohol withdrawal syndrome/delirium tremens, upper GI bleeding, sinus bradycardia, and acute blood loss anemia.
[2024-08-28] MEDS: ACETAMINOPHEN IVPB 1,000 MG/100 ML VIAL 250 MG IV (13:58)
[2024-08-28] MEDS: OCTREOTIDE ACET INJ 1,000 MCG in SODIUM CHLORIDE 0.9% 100 ML 5.1 MCG IV (16:19)
--- NOTE | 2024-08-28 17:00 | PC.NURSE ---
1600 CIWA score 17, I reported to Dr. Fernandez that I am going to give diazepam IV as indicated for CIWA, Per Dr. Fernandez to hold off on the diazepam since patient;s heart rate is 37 and respirations are 10. I notified him that patient is c/o feeling very anxious and hallucinating, he is fully awake, but DR. fernandez wants to hold diazepam at this time.
--- NOTE | 2024-08-28 17:04 | PC.SS ---
Update: Patient on room air. NPO. Patient receiving IV antibiotics. Dr. Tello consulting. Patient on CIWA protocal.
[2024-08-28] MEDS: DIAZEPAM INJ 5 MG/ML VIAL 2 ML 2.5 MG IVP ×2 (18:15→23:14)
[2024-08-28] MEDS: cefTRIAXone/D5w 1gm IV premix 1 GM/50 ML BAG IV (20:49)
--- NOTE | 2024-08-28 21:33 | PD.IMPROG ---
Documentation for date of: 08/28/24 Subjective Subjective Interval history: the patient evaluated . EGD canceled for today because of bradycardia possibly tomorrow we will reevaluate before scheduling it Exam Vital Signs Temp Pulse Resp BP Pulse Ox O2 Del Method O2 Flow Rate 97.8 F 55 L 14 110/65 99 Room Air 2 08/28/24 16:00 08/28/24 19:15 08/28/24 19:15 08/28/24 19:15 08/28/24 19:15 08/28/24 16:00 08/27/24 21:30 Objective Labs 08/28/24 04:35 08/28/24 04:35 Labs: Laboratory Results - last 24 hr 08/27/24 08/27/24 08/27/24 16:09 21:35 23:10 WBC RBC Hgb Hct MCV MCH MCHC RDW Std Deviation Plt Count Neut % (Auto) Lymph % (Auto) [place] % (Auto) Eos % (Auto) Baso % (Auto) Neut # (Auto) Lymph # (Auto) [place] # (Auto) Eos # (Auto) Baso # (Auto) Immature Gran # (Auto) Absolute Nucleated RBC Immature Gran % Nucleated RBC % PT 11.4 INR 1.0 APTT 28.4 Sodium Potassium Chloride Carbon Dioxide Anion Gap BUN Creatinine Estim Creat Clear Calc eGFR BUN/Creatinine Ratio Glucose Estimated Ave Glu mg/dL Hemoglobin A1c Calculated Osmolality Calcium Corrected Calcium Phosphorus Magnesium Iron TIBC Iron Saturation Unsat Iron Binding Ferritin Total Bilirubin AST ALT Alkaline Phosphatase Ammonia Total Protein Albumin Globulin Albumin/Globulin Ratio Triglycerides Cholesterol LDL Cholesterol, Calc HDL Cholesterol Cholesterol/HDL Ratio Beta-Hydroxybutyrate/Acetoacetate 0.4 Ur Collection Type Voided Urine Color Yellow Urine Clarity Clear Urine pH 6.0 Ur Specific [place] 1.038 H Urine Protein Negative Urine Glucose (UA) Negative Urine Ketones 3+ A Urine Blood Negative Urine Nitrite Negative Urine Bilirubin Negative Urine Urobilinogen (Auto) Negative Ur Leukocyte Esterase Negative Urine RBC 1 Urine WBC < 1 Ur Squamous Epith Cells 0 Amorphous Crystals Present A Urine Bacteria None Ur Culture Indicated? Not Indicated Urine Opiates Screen Positive A Urine Fentanyl Screen Negative Ur Barbiturates Screen Positive A U Amphetamin/Meth Scrn Negative U Benzodiazepines Scrn Positive A U Cocaine Metab Screen Negative U Marijuana (THC) Screen Negative Blood Type Antibody Screen Blood Bank Wristband ID 08/27/24 08/28/2408/28/25 23:55 00:28 04:35 WBC 6.8 4.0 D RBC 3.00 L 2.99 L Hgb 10.4 L 10.4 L Hct 29.2 L 29.9 L MCV 97 100 MCH 34.7 34.8 MCHC 35.6 34.8 RDW Std Deviation 49.6 H 50.4 H Plt Count 272 D 292 Neut % (Auto) 70 51 Lymph % (Auto) 22 37 [place] % (Auto) 7 9 Eos % (Auto) 0 2 Baso % (Auto) 1 1 Neut # (Auto) 4.8 2.0 Lymph # (Auto) 1.5 1.5 [place] # (Auto) 0.5 0.4 Eos # (Auto) 0.0 0.1 Baso # (Auto) 0.0 0.0 Immature Gran # (Auto) 0.01 H 0.01 H Absolute Nucleated RBC 0.00 0.00 Immature Gran % 0 0 Nucleated RBC % 0 0 PT 11.4 INR 1.0 APTT 29.6 Sodium 138 Potassium 4.0 Chloride 102 Carbon Dioxide 25.5 Anion Gap 11 BUN < 5 L Creatinine 0.8 Estim Creat Clear Calc 104.6 eGFR > 60 BUN/Creatinine Ratio 6 L Glucose [address] Glu mg/dL 105 Hemoglobin A1c 5.3 Calculated Osmolality 276 Calcium 8.2 L Corrected Calcium 8.4 L Phosphorus 2.7 Magnesium 2.4 Iron 276 H TIBC 336 Iron Saturation 82 H Unsat Iron Binding 60 L Ferritin 54 Total Bilirubin 1.4 H AST 47 H ALT 33 Alkaline Phosphatase 145 H D Ammonia 38 H Total Protein 6.4 Albumin 3.8 D Globulin 2.6 Albumin/Globulin Ratio 1.5 Triglycerides 109 Cholesterol 162 LDL Cholesterol, Calc 51 HDL Cholesterol 89 H Cholesterol/HDL Ratio 1.8 L Beta-Hydroxybutyrate/Acetoacetate Ur Collection Type Urine Color Urine Clarity Urine pH Ur Specific [place] Urine Protein Urine Glucose (UA) Urine Ketones Urine Blood Urine Nitrite Urine Bilirubin Urine Urobilinogen (Auto) Ur Leukocyte Esterase Urine RBC Urine WBC Ur Squamous Epith Cells Amorphous Crystals Urine Bacteria Ur Culture Indicated? 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 Consent will be obtained from the family members for fiberoptic esophagogastroduodenoscopy with possible biopsy possible therapeutic intervention under intravenous moderate sedation Prognosis guarded Thank you very much for the opportunity to participate in the care of this patient Time Spent With Patient Time: Total time spent is greater than 50% in coordination of care (as documented) at patient's floor/unit and/or counseling patient:
[2024-08-29] VITALS (109 sets, daily range): BP systolic 96–142; BP diastolic 62–98; PULSE 36–82; RESP 9–99; TEMP 36.6–36.9; O2SAT 92–100; BMI 21.2
[2024-08-29] MEDS: DIAZEPAM INJ 5 MG/ML VIAL 2 ML IVP (03:07)
[2024-08-29 05:30] LABS: Misc Send Out* See Sep Rpt
[2024-08-29 05:32] LABS: Basophils # (Auto) 0.0 Thou/mm3 (0.0-0.2); Basophils % (Auto) 1 % (0-2.5); Eosinophils # (Auto) 0.1 Thou/mm3 (0.0-0.5); Eosinophils % (Auto) 4 % (0-10); Hematocrit 34.0 % (41.0-53.0); Hemoglobin 11.7 g/dL (13.5-16.0); Immature Granulocytes Auto 0.00 Thou/mm3 (0.00-0.00); Lymphocytes # (Auto) 1.3 Thou/mm3 (1.0-4.8); Lymphocytes % (Auto) 38 % (10-50); Mean Corpuscular HGB Conc 34.4 g/dl (31.0-37.0); Mean Corpuscular Hemoglobin 34.6 pg (25.0-35.0); Mean Corpuscular Volume 101 fL (80-100); Monocytes # (Auto) 0.3 Thou/mm3 (0.0-0.8); Monocytes % (Auto) 10 % (0-12); Neutrophils # (Auto) 1.5 Thou/mm3 (1.8-7.7); Neutrophils % (Auto) 46 % (37-80); Nucleated Red Blood Cell # 0.00 Thou/mm3 (0.00-0.00); Nucleated Red Blood Cell % 0 /100 WBC (0); Platelet Count 301 Thou/mm3 (140-440); RDW Standard Deviation 50.0 fL (35.1-43.9); Red Blood Count 3.38 Miln/mm3 (4.50-5.90); White Blood Count 3.3 Thou/mm3 (3.8-10.6)
[2024-08-29] MEDS: MORPHINE SULF INJ 10 MG/ML VIAL IVP ×2 (06:21→14:42)
[2024-08-29 06:32] LABS: Alanine Aminotransferase 27 U/L (10-49); Albumin, Serum 3.9 gm/dL (3.5-5.0); Albumin/Globulin Ratio 1.5 (1.2-2.2); Alkaline Phosphatase 151 U/L (46-116); Anion Gap 12 (7-16); Aspartate Amino Transferase 40 U/L (0-34); BUN/Creatinine Ratio 6 Ratio (12-20); Bilirubin,Total 0.6 mg/dL (0.3-1.2); Blood Urea Nitrogen < 5 mg/dL (9-23); Calcium 8.6 mg/dL (8.3-10.6); Calcium (Corrected) 8.7 mg/dL (8.5-10.1); Carbon Dioxide 26.5 mMol/L (20.0-31.0); Chloride 101 mMol/L (98-107); Creatinine (Component) 0.8 mg/dL (0.6-1.3); Estimated Creatinine Clearance 104.6 mL/min (>60); Globulin 2.6 gm/dL (2.3-3.5); Glucose 121 mg/dL (74-106); Magnesium 1.3 mg/dL (1.6-2.6); Osmolality,Calculated 275 (275-295); Phosphorous 3.0 mg/dL (2.4-5.1); Potassium 4.1 mMol/L (3.4-5.1); Sodium 139 mMol/L (136-145); Total Protein 6.5 gm/dL (5.7-8.2); eGFR > 60 See Note
[2024-08-29] MEDS: Magnesium Sulfate 4 GM Ivpb 4 GM/50 ML BAG IV (08:02)
[2024-08-29] MEDS: DIAZEPAM INJ 5 MG/ML VIAL 2 ML 2.5 MG IVP ×2 (08:02→16:46)
[2024-08-29] MEDS: FOLIC ACID INJ 1 MG/0.2 ML IVP (08:38)
[2024-08-29] MEDS: THIAMINE INJ 100 MG/ML VIAL 2 ML IVP ×2 (08:40→20:21)
--- NOTE | 2024-08-29 10:18 | PD.RESPRO ---
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 Earlier today he was seen by resident physician and [facility] and was urgently referred to the emergency room due to severe alcohol withdrawal. Patient reports he is having visual and auditory hallucinations, and severe anxiety and tremor. He also complains of severe abdominal pain mostly localized in his right upper quadrant and black tarry stool for the last several days. He reports that he drank 3 bottles of beer yesterday and 2 bottles of beer the day before yesterday. He is trying to cut down on alcohol and was in rehab 1 months ago. Patient was admitted twice within the last months for alcohol withdrawal symptoms however left AMA both times. He denies any fever, chills, chest pain, shortness of breath, bloody stool. In the ED on admission his blood pressure 123/68, pulse 99, respirations 24, temperature 98.4 ?F, oxygen saturation 96% on room air. Labs showed hemoglobin 11.1, hematocrit 31.4%, magnesium 1.4, AST 80, alk phos 176. EKG showed sinus rhythm. Head CT was negative for mass effect or hemorrhage. Chest x-ray was negative. CTAP showed cirrhosis, no focal liver lesions, cholelithiasis, negative for cholecystitis. Patient was given total 15 mg of Valium in the ED, CIWA score at the bedside 35. Patient was given loading dose of phenobarbital to 60 mg and was admitted to ICU for further management. 08/28/2024: Patient seen and examined at bedside, CIWA has improved remarkably, patient did receive phenobarbital 260 x1 and 130 x 1 overnight since admission, this morning we started patient on CIWA protocol with IV diazepam and started patient on Librium 50 mg twice daily. Patient otherwise complains of abdominal epigastric pain for which patient is receiving morphine as needed, will give Tylenol x 1, increase standing dose 200 twice daily for Wernicke's encephalopathy prevention IV daily 2 doses licensed clinical social worker. Repeat EKG shows sinus bradycardia, per chart review patient has been bradycardic at times during previous admissions will benefit from outpatient cardiology workup. Patient does not seem to have acute alcoholic hepatitis, has minimal transaminitis bilirubin less than 2 INR within normal limits, otherwise patient cirrhosis child Jacobson class A, MELD sodium score of 9, has good prognosis educated on bedside on discontinuing alcohol use outpatient. Does have underlying cholelithiasis, no active acute cholecystitis, ammonia is mildly elevated, low suspicion of hepatic encephalopathy. Mild hypocalcemia noted on labs, will monitor. Discussed with digital print operator, considering patient's alcohol withdrawal and bradycardia patient's EGD postponed to tomorrow, increase Protonix dose to 80 mg IV twice daily. Will continue to monitor today in ICU with CIWA protocol and phenobarbital/management of alcohol withdrawal as needed. 08/29/2024: Patient seen examined at bedside, on Librium 50 mg twice daily along with CIWA protocol. Patient symptoms of alcohol withdrawal have improved significantly, scheduled for EGD today, n.p.o. after 11 AM. Patient was given [place] x 1, continues to have abdominal pain, we will discontinue morphine, consider Tylenol as needed for pain, keep daily Tylenol dose less than 2 g otherwise patient's bilirubin has improved, we will continue octreotide GGT and Protonix 80 mg IV twice daily per GI recommendations. Magnesium repleted today. Plan will be to taper Librium off over the course of hospitalization, patient should undergo depression screening, licensed clinical social worker referral, referral to Alcoholics Anonymous. Consider discharging patient on acamprosate or naltrexone with close outpatient follow-up. For underlying bradycardia, patient will need outpatient workup. Patient otherwise stable to be downgraded to telemetry, hospitalist team C to resume care of the patient. Exam Vital Signs Temp Pulse Resp BP Pulse Ox O2 Del Method O2 Flow Rate 97.8 F 43 L 13 104/73 98 Room Air 2 08/29/24 04:00 08/29/24 06:30 08/29/24 06:30 08/29/24 06:30 08/29/24 06:30 08/28/24 16:00 08/27/24 21:30 Narrative Exam Gen: Well-developed and well-nourished male in moderate distress. HEENT: NCAT, PERRLA, EOMI, MMM, anicteric conjunctivae. CVS: normal S1 and S2. RRR. No M/R/G. Resp: CTA B/L. No rhonchi, rales, crackles or wheezing. Abd: tender throughout, most pronounced in RUQ and epigastrium, voluntary guarding noted, non-distended. BS+ in all 4 quadrants. MSK: Good ROM in BUE & BLE. No edema or rash. Neuro: CN II-XII grossly intact. Strength 5/5 in BUE & BLE. Alert and oriented x3. CIWA 14. Objective Labs 08/31/24 05:49 08/31/24 05:49 Labs: Laboratory Results - last 24 hr 08/29/24 04:37 WBC 3.3 L RBC 3.38 L Hgb 11.7 L Hct 34.0 L MCV 101 H MCH 34.6 MCHC 34.4 RDW Std Deviation 50.0 H Plt Count 301 Neut % (Auto) 46 Lymph % (Auto) 38 [place] % (Auto) 10 Eos % (Auto) 4 Baso % (Auto) 1 Neut # (Auto) 1.5 L Lymph # (Auto) 1.3 [place] # (Auto) 0.3 Eos # (Auto) 0.1 Baso # (Auto) 0.0 Immature Gran # (Auto) 0.00 Absolute Nucleated RBC 0.00 Immature Gran % 0 Nucleated RBC % 0 Sodium 139 Potassium 4.1 Chloride 101 Carbon Dioxide 26.5 Anion Gap 12 BUN < 5 L Creatinine 0.8 Estim Creat Clear Calc 104.6 eGFR > 60 BUN/Creatinine Ratio 6 L Glucose 121 H Calculated Osmolality 275 Calcium 8.6 Corrected Calcium 8.7 Phosphorus 3.0 Magnesium 1.3 L Total Bilirubin 0.6 D AST 40 H ALT 27 Alkaline Phosphatase 151 H Total Protein 6.5 Albumin 3.9 Globulin 2.6 Albumin/Globulin Ratio 1.5 Quality Measures Quality Measures VTE prophylaxis Assessment & Plan Assessment Current Active Medications: Generic Name Dose Route Start Last Admin Trade Name Freq PRN Reason Stop Dose Admin Hydrocodone Bitart/Acetaminophen 1 tab 08/29/24 10:55 Hydrocodone/Apap 5/325 Tablet PO 08/29/24 10:56 X1 ONE Chlordiazepoxide HCl 50 mg 08/28/24 21:00 08/29/24 08:39 Chlordiazepoxide Hcl 25 Mg Capsule PO 09/02/24 20:59 50 mg BID APOORVA Administration Phenobarbital Sodium 130 mg/ 0 mg 08/27/24 23:09 08/28/24 00:02 Sodium Chloride 12 ml IVP 09/10/24 21:05 130 mg Q30MIN PRN Administration ALCOHOL WITHDRAWAL CIWA >20 Diazepam 5 mg 07/22/25 15:28 08/29/24 03:07 Diazepam Inj 5 Mg/Ml Vial 2 Ml IVP 09/02/24 06:57 5 mg Q4H PRN Administration CIWA SCORE 20-25 Diazepam 1 mg 08/28/24 15:27 Diazepam Inj 5 Mg/Ml Vial 2 Ml IVP 09/02/24 06:57 Q4H PRN CIWA SCORE 8-13 Diazepam 2.5 mg 08/28/24 15:28 08/29/24 08:02 Diazepam Inj 5 Mg/Ml Vial 2 Ml IVP 09/02/24 06:57 2.5 mg Q4H PRN Administration CIWA SCORE 14-19 Folic Acid 1 mg 08/28/24 09:00 08/29/24 08:38 Folic Acid Inj 1 Mg/0.2 Ml IVP 08/30/24 08:59 1 mg QDAY APOORVA Administration Octreotide Acetate 1,000 mcg/ 102 mls @ 5.1 mls/hr 08/27/24 20:49 08/28/24 16:19 Sodium Chloride IV 09/01/24 20:48 50 mcg/hr .Q20H APOORVA 5.1 mls/hr Administration Protocol 50 MCG/HR Ceftriaxone Sodium/Dextrose 1 gm in 50 mls @ 100 mls/hr 08/28/24 21:00 08/28/24 20:49 Rocephin/D5w 1gm Iv Premix IV 09/04/24 20:59 100 mls/hr QDAY APOORVA Administration Magnesium Sulfate 4 gm in 50 mls @ 12.5 mls/hr 08/29/24 07:32 08/29/24 08:02 Magnesium Sulfate Ivpb IV 08/29/24 11:31 12.5 mls/hr X1 ONE Administration Acetaminophen 1,000 mg in 100 mls @ 250 mls/hr 08/29/24 10:12 Ofirmev Inj IV 08/30/24 10:11 Q6HR PRN Pain (4-10) Pantoprazole Sodium 80 mg 08/28/24 21:00 08/29/24 08:39 Pantoprazole Inj 40 Mg Vial IVP 09/27/24 20:59 80 mg BID APOORVA Administration Thiamine HCl 100 mg 08/28/24 09:00 08/29/24 08:40 Thiamine Inj 100 Mg/Ml Vial 2 Ml IVP 09/27/24 08:59 100 mg BID APOORVA Administration Plan Patient is a 29 years old male with past medical history of alcohol use disorder, 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 Neuro: #Alcohol dependence with withdrawal. #Alcohol use disorder Patient's CIWA score was 35 after 15 mg of Valium in the ED. He was given loading dose of phenobarbital 260 mg IV. Patient has history of multiple admissions to the facility for alcohol withdrawal, was seen outpatient at [facility] for severe alcohol withdrawal, presented to ED for evaluation. Patient was prescribed Librium outpatient for management of alcohol withdrawal, patient denies taking any medication, reports that it got lost. Plan: - CIWA monitoring with Valium per CIFL protocol - Chlordiazepoxide 50mg twice daily -> taper in a.m. - IV thiamine twice daily, IV folate daily -> transition to p.o. post EGD Cardiovascular: #Sinus bradycardia Patient has asymptomatic sinus bradycardia, repeat EKG today shows sinus bradycardia as well. Patient is significantly bradycardic when sleeping. No history of any cardiac disease, has never seen a dumpster operator outpatient. - Consider cardiac workup outpatient Respiratory: No active problem. Gastrointestinal: #Alcohol-related liver disease #Cirrhosis with esophageal varices. #Upper GI bleeding. #Cholelithiasis Patient reported black tarry stool over the last several days, hgb dropped from 13.5 10 days ago to 11.1 today. Patient reports severe abdominal pain mostly localized in RUQ/epigastrium. CTAP showed cirrhosis, no focal liver lesions, cholelithiasis, negative for cholecystitis. Labs showed AST 80, ALT 46, ALP 176. Initial glucose was 65, improved to 101. Child-Jacobson class A, MELD Na 9 points EGD 08/12: Grade 1 EV Minimally elevated Ammonia, no concern of hepatic encephalopathy Per review of records patient's alpha-1 antitrypsin negative, copper low/normal, LENA negative Patient had elevation of iron levels in the past. Iron levels elevated noted again, ferritin within normal limits. Plan: - GI consulted, EGD scheduled for today - Continue octreotide drip. - Protonix 80 mg BID IV. - NPO. -> Low-sodium diet post EGD. - Ordered HFE gene mutation testing, follow-up out-patient Renal: #Mild hypocalcemia, resolved #Hypomagnesemia - Correct and replace electrolytes as needed Endocrine: No active problem. Infectious Disease: No active problem. Hematology/Oncology: #Acute blood loss anemia. Patient presented complaining of black tarry stools, labs showed hemoglobin 11.1, RBCs 3.24, hematocrit 31.4%. 10 days ago his hemoglobin was 13.5. Plan: - Repeat CBC, type and screen. - Transfuse if hemoglobin < 7. - GI is on board, pending EGD. Diet: NPO. DVT prophylaxis: SCDs. GI prophylaxis: Protonix. Code status: FULL CODE. Disposition: Downgraded to telemetry, hospitalist team to resume care. Case discussed with Attending mechanical tech Dr. Enrico Farah MD. Landen Fernandez MD Internal Medicine PGY 2 Disclaimer: This note was dictated by speech recognition. Minor errors in merchandise carrier may be present due to voice recognition software. Attending Provider Attestation/Addendum Patient seen and examined with the above resident, Landen Fernandez MD. I agree with the findings, assessment, and plan of care as documented except for any differences below. Patient significantly improved the last 24 hours with ongoing management of his alcohol withdrawal syndrome/delirium tremens. Patient without report of ongoing hallucinations at this point. Hemodynamics also improved with reduction in agitation. Patient with improvement in abdominal pain as well and suspected this is likely due to capsular irritation in setting of his alcohol use no significant hepatocellular injury as evidenced biochemically. Advance diet as tolerated throughout the day today. Patient will continue to finish course of Librium taper given benefit. Would likely benefit from medical side psychiatric treatment for abstinence from alcohol given that this is recurrent admission and without intervention is likely to bounce back with similar scenario given return to the environment/situation that predisposes his resumption of alcohol abuse. In regards to potential upper GI bleeding, plan for EGD today and will leave on octreotide and Protonix until cleared by gastroenterology. Hemoglobin remained stable and tarry stools seem to have resolved now. In interim, patient can be transferred to medicine for ongoing monitoring and management prior to discharge in coming days. Total critical care time: I personally spent 35 minutes for review of physiologic parameters, directing plan of care throughout the day, coordination of care with her subspecialist, and counseling patient at bedside. This is exclusive of time spent teaching on staff or performing any separate billable procedures. Patient remains at significant risk for further morbidity and mortality warranting close monitoring of care and available in the ICU. Critical care services required for her alcohol withdrawal syndrome, upper GI bleed, sinus bradycardia.
[2024-08-29] MEDS: HYDROcodone/APAP 5/325 TABLET 1 TAB PO (10:41)
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
[2024-08-29] MEDS: DIAZEPAM INJ 5 MG/ML VIAL 2 ML 1 MG IVP (11:59)
[2024-08-29] MEDS: ACETAMINOPHEN IVPB 1,000 MG/100 ML VIAL 250 MG IV (12:57)
[2024-08-29] MEDS: OCTREOTIDE ACET INJ 1,000 MCG in SODIUM CHLORIDE 0.9% 100 ML 5.1 MCG IV (12:58)
--- NOTE | 2024-08-29 13:26 | ESPR_ITS ---
<Statement entered by Devika Meyers MD - 08/30/24 06:56> I have reviewed the note and agree with the resident's assessment & plan with exceptions as below. I have personally reviewed labs, imaging, home meds/prior records, examined the patient, formulated and discussed management plan with the IM team. Pt examined at bedside today. Patient being downgraded from the ICU today for severe alcohol withdrawal in which she was managed with benzodiazepines including diazepam and Librium. He had repeat EGD with Dr. Tello while in the ICU and showed grade 1 varices and gastritis. Will continue with Reglan 5 mg IV scheduled, additional pain control with as needed morphine. Will continue with CIWA protocol for alcohol withdrawal. Repeat hematology and chemistry in the a.m. Devika Meyers, PGY-2 Internal Medicine Documentation for date of: 08/29/24 Subjective Subjective Interval history: 29-year-old patient was admitted to the ICU due to severe alcohol withdrawal, presenting with a high CIWA score, hallucinations, and tremors, which necessitated aggressive phenobarbital and Valium administration to prevent serious complications. His admission was further supported by concerns for gastrointestinal bleeding from his esophageal varices, given his severe abdominal pain and black tarry stools, alongside a complex history of alcohol- induced liver injury and repeated AMA discharges. He has now been downgraded to telemetry as his alcohol withdrawal symptoms have significantly improved with treatment. He still needs ongoing management for residual pain, cholelithiasis, and a scheduled EGD on medical floor. Exam Vital Signs Temp Pulse Resp BP Pulse Ox O2 Del Method O2 Flow Rate 97.8 F 45 L 12 128/87 H 97 Room Air 2 08/29/24 12:00 08/29/24 13:11 08/29/24 13:11 08/29/24 12:00 08/29/24 12:00 08/29/24 12:00 08/27/24 21:30 Narrative Exam Gen: Well-developed and well-nourished male in moderate distress. HEENT: NCAT, PERRLA, EOMI, MMM, anicteric conjunctivae. CVS: normal S1 and S2. RRR. No M/R/G. Resp: CTA B/L. No rhonchi, rales, crackles or wheezing. Abd: tender throughout, most pronounced in RUQ and epigastrium, voluntary guarding noted, non-distended. BS+ in all 4 quadrants. MSK: Good ROM in BUE & BLE. No edema or rash. Neuro: CN II-XII grossly intact. Strength 5/5 in BUE & BLE. Alert and oriented x3. CIWA 18 Objective Labs 08/30/24 04:25 08/30/24 04:25 Labs: Laboratory Results - last 24 hr 08/29/24 04:37 WBC 3.3 L RBC 3.38 L Hgb 11.7 L Hct 34.0 L MCV 101 H MCH 34.6 MCHC 34.4 RDW Std Deviation 50.0 H Plt Count 301 Neut % (Auto) 46 Lymph % (Auto) 38 [place] % (Auto) 10 Eos % (Auto) 4 Baso % (Auto) 1 Neut # (Auto) 1.5 L Lymph # (Auto) 1.3 [place] # (Auto) 0.3 Eos # (Auto) 0.1 Baso # (Auto) 0.0 Immature Gran # (Auto) 0.00 Absolute Nucleated RBC 0.00 Immature Gran % 0 Nucleated RBC % 0 Sodium 139 Potassium 4.1 Chloride 101 Carbon Dioxide 26.5 Anion Gap 12 BUN < 5 L Creatinine 0.8 Estim Creat Clear Calc 104.6 eGFR > 60 BUN/Creatinine Ratio 6 L Glucose 121 H Calculated Osmolality 275 Calcium 8.6 Corrected Calcium 8.7 Phosphorus 3.0 Magnesium 1.3 L Total Bilirubin 0.6 D AST 40 H ALT 27 Alkaline Phosphatase 151 H Total Protein 6.5 Albumin 3.9 Globulin 2.6 Albumin/Globulin Ratio 1.5 Quality Measures Quality Measures VTE prophylaxis Assessment & Plan Assessment Current Active Medications: Generic Name Dose Route Start Last Admin Trade Name Freq PRN Reason Stop Dose Admin Chlordiazepoxide HCl 50 mg 08/28/24 21:00 08/29/24 08:39 Chlordiazepoxide Hcl 25 Mg Capsule PO 09/02/24 20:59 50 mg BID APOORVA Administration Cholestyramine Resin 1 pkt 08/29/24 21:00 Cholestyramine/Sucrose 1 Pkt Ea PO 09/28/24 20:59 BID APOORVA Diazepam 5 mg 08/28/24 15:28 08/29/24 03:07 Diazepam Inj 5 Mg/Ml Vial 2 Ml IVP 09/02/24 06:57 5 mg Q4H PRN Administration CIWA SCORE 20-25 Diazepam 1 mg 08/28/24 15:27 08/29/24 11:59 Diazepam Inj 5 Mg/Ml Vial 2 Ml IVP 09/02/24 06:57 1 mg Q4H PRN Administration CIWA SCORE 8-13 Diazepam 2.5 mg 08/28/24 15:28 08/29/24 08:02 Diazepam Inj 5 Mg/Ml Vial 2 Ml IVP 09/02/24 06:57 2.5 mg Q4H PRN Administration CIWA SCORE 14-19 Folic Acid 1 mg 08/28/24 09:00 08/29/24 08:38 Folic Acid Inj 1 Mg/0.2 Ml IVP 08/30/24 08:59 1 mg QDAY APOORVA Administration Ceftriaxone Sodium/Dextrose 1 gm in 50 mls @ 100 mls/hr 08/28/24 21:00 08/28/24 20:49 Rocephin/D5w 1gm Iv Premix IV 09/04/24 20:59 100 mls/hr QDAY APOORVA Administration Acetaminophen 1,000 mg in 100 mls @ 250 mls/hr 08/29/24 10:12 08/29/24 12:57 Ofirmev Inj IV 08/30/24 10:11 250 mls/hr Q6HR PRN Administration Pain (4-10) Octreotide Acetate 1,000 mcg/ 102 mls @ 5.1 mls/hr 08/29/24 11:30 08/29/24 12:58 Sodium Chloride IV 09/01/24 20:48 50 mcg/hr .Q20H APOORVA 5.1 mls/hr Administration Protocol 50 MCG/HR Pantoprazole Sodium 80 mg 08/28/24 21:00 08/29/24 08:39 Pantoprazole Inj 40 Mg Vial IVP 09/27/24 20:59 80 mg BID APOORVA Administration Thiamine HCl 100 mg 08/28/24 09:00 08/29/24 08:40 Thiamine Inj 100 Mg/Ml Vial 2 Ml IVP 09/27/24 08:59 100 mg BID APOORVA Administration Plan Assessment: 29 years old male with past medical history of alcohol use disorder, 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, gastritis presented to the ED from [facility] due to alcohol withdrawal and was admitted to ICU for further management. #Alcohol-related liver disease #Cirrhosis with esophageal varices. #Upper GI bleeding. #Cholelithiasis Patient reported black tarry stool over the last several days, hgb dropped from 13.5 10 days ago to 11.1 today. Patient reports severe abdominal pain mostly localized in RUQ/epigastrium. CTAP showed cirrhosis, no focal liver lesions, cholelithiasis, negative for cholecystitis. Labs showed AST 80, ALT 46, ALP 176. Initial glucose was 65, improved to 101. Child-Jacobson class A, MELD Na 9 points EGD 08/12: Grade 1 EV Minimally elevated Ammonia, no concern of hepatic encephalopathy Per review of records patient's alpha-1 antitrypsin negative, copper low/normal, LENA negative Patient had elevation of iron levels in the past. Iron levels elevated noted again, ferritin within normal limits. Plan: - GI consulted, EGD scheduled for today - Continue octreotide drip. - Protonix 80 mg BID IV. - NPO. -> Low-sodium diet post EGD. - Ordered HFE gene mutation testing, follow-up out-patient #Acute blood loss anemia. Patient presented complaining of black tarry stools, labs showed hemoglobin 11.1, RBCs 3.24, hematocrit 31.4%. 10 days ago his hemoglobin was 13.5. Plan: - Repeat CBC, type and screen. - Transfuse if hemoglobin < 7. - GI is on board, pending EGD. #Alcohol dependence with withdrawal. #Alcohol use disorder Patient's CIWA score was 35 after 15 mg of Valium in the ED. He was given loading dose of phenobarbital 260 mg IV. Patient has history of multiple admissions to the facility for alcohol withdrawal, was seen outpatient at [facility] for severe alcohol withdrawal, presented to ED for evaluation. Patient was prescribed Librium outpatient for management of alcohol withdrawal, patient denies taking any medication, reports that it got lost. Plan: - CIWA monitoring with Valium per CIWA protocol - Chlordiazepoxide 50mg twice daily -> taper in a.m. - IV thiamine twice daily, IV folate daily -> transition to p.o. post EGD #Sinus bradycardia Patient has asymptomatic sinus bradycardia, repeat EKG today shows sinus bradycardia as well. Patient is significantly bradycardic when sleeping. 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 - Consider cardiac workup outpatient #Hypomagnesemia - Correct and replace electrolytes as needed Health Maintenance: Diet: NPO. DVT prophylaxis: SCDs. GI prophylaxis: Protonix. Code status: FULL CODE. Disposition: Telemetry Case discussed with my attending Dr. Aguilar, and senior resident, Dr. Haris Purdy MD PGY-1 Attending Provider Attestation/Addendum I have discussed and was present for the essential components of the history, physical examination, diagnosis, and treatment plan with the resident. I agree with the patient's care as documented by the resident and amended herein by me. Deni Aguilar DO. Although this document has been carefully reviewed, there may still be some phonetic and other typographical errors. These errors are purely grammatical due to imperfections in the software program and should not be construed in any way to compromise the substance of the patient's medical care during this visit.
--- NOTE | 2024-08-29 19:19 | PC.NURSE ---
Hand off report given to Maeve RAMIREZ. All belongings gathered and sent with patient. VSS.
[2024-08-29] MEDS: MORPHINE SULF INJ 10 MG/ML VIAL 2 MG IVP (19:50)
[2024-08-29] MEDS: cefTRIAXone/D5w 1gm IV premix 1 GM/50 ML BAG IV (20:22)
--- NOTE | 2024-08-29 22:30 | SUR.PHASEI ---
received pt and report from ASHLEY Liu. Pt is sedated, vss, no distress noted. Removed IV to left AC w/ cath intact, no s/s infiltration or redness noted to site. IV intact to rt wrist, no s/s of infltration or redness to site.
--- NOTE | 2024-08-29 23:03 | SUR.PHASEI ---
pt awake, A&ox3, no distress noted. i offer him ice chips, he stated he's tire of ice chips. Pt ready to transfer back to his room
--- NOTE | 2024-08-29 23:10 | SUR.PHASEI ---
report given to RN Maeve, pt awake but drowsy, vss, no distress noted.
[2024-08-30] VITALS (9 sets, daily range): BP systolic 101–146; BP diastolic 64–84; PULSE 40–99; RESP 12–97; TEMP 36.1–36.2; O2SAT 95–100
[2024-08-30] MEDS: METOCLOPRAMIDE INJ 5 MG/ML VIAL 2 ML IVP ×5 (00:27→23:35)
[2024-08-30] MEDS: HYDROcodone/APAP 5/325 TABLET 1 TAB PO (00:41)
[2024-08-30] MEDS: MORPHINE SULF INJ 10 MG/ML VIAL 2 MG IVP ×4 (05:20→21:33)
[2024-08-30 06:28] LABS: Basophils # (Auto) 0.0 Thou/mm3 (0.0-0.2); Basophils % (Auto) 1 % (0-2.5); Eosinophils # (Auto) 0.1 Thou/mm3 (0.0-0.5); Eosinophils % (Auto) 4 % (0-10); Hematocrit 36.1 % (41.0-53.0); Hemoglobin 12.4 g/dL (13.5-16.0); Immature Granulocytes Auto 0.00 Thou/mm3 (0.00-0.00); Lymphocytes # (Auto) 1.1 Thou/mm3 (1.0-4.8); Lymphocytes % (Auto) 28 % (10-50); Mean Corpuscular HGB Conc 34.3 g/dl (31.0-37.0); Mean Corpuscular Hemoglobin 35.1 pg (25.0-35.0); Mean Corpuscular Volume 102 fL (80-100); Monocytes # (Auto) 0.3 Thou/mm3 (0.0-0.8); Monocytes % (Auto) 8 % (0-12); Neutrophils # (Auto) 2.4 Thou/mm3 (1.8-7.7); Neutrophils % (Auto) 60 % (37-80); Nucleated Red Blood Cell # 0.00 Thou/mm3 (0.00-0.00); Nucleated Red Blood Cell % 0 /100 WBC (0); Platelet Count 327 Thou/mm3 (140-440); RDW Standard Deviation 51.1 fL (35.1-43.9); Red Blood Count 3.53 Miln/mm3 (4.50-5.90); White Blood Count 4.0 Thou/mm3 (3.8-10.6)
[2024-08-30 06:49] LABS: Alanine Aminotransferase 23 U/L (10-49); Albumin, Serum 4.3 gm/dL (3.5-5.0); Albumin/Globulin Ratio 1.6 (1.2-2.2); Alkaline Phosphatase 144 U/L (46-116); Anion Gap 13 (7-16); Aspartate Amino Transferase 35 U/L (0-34); BUN/Creatinine Ratio 6 Ratio (12-20); Bilirubin,Total 0.4 mg/dL (0.3-1.2); Blood Urea Nitrogen < 5 mg/dL (9-23); Calcium 9.1 mg/dL (8.3-10.6); Calcium (Corrected) 9.1 mg/dL (8.5-10.1); Carbon Dioxide 27.2 mMol/L (20.0-31.0); Chloride 100 mMol/L (98-107); Creatinine (Component) 0.9 mg/dL (0.6-1.3); Estimated Creatinine Clearance 95.2 mL/min (>60); Globulin 2.7 gm/dL (2.3-3.5); Glucose 92 mg/dL (74-106); Magnesium 1.4 mg/dL (1.6-2.6); Osmolality,Calculated 276 (275-295); Phosphorous 4.0 mg/dL (2.4-5.1); Potassium 3.4 mMol/L (3.4-5.1); Sodium 140 mMol/L (136-145); Total Protein 7.0 gm/dL (5.7-8.2); eGFR > 60 See Note
[2024-08-30] MEDS: THIAMINE INJ 100 MG/ML VIAL 2 ML IVP ×2 (09:15→20:53)
[2024-08-30] MEDS: CHOLESTYRAMINE/SUCROSE 1 PKT EA PO ×2 (09:16→12:00)
[2024-08-30] MEDS: cefTRIAXone/D5w 1gm IV premix 1 GM/50 ML BAG IV (09:17)
[2024-08-30] MEDS: Magnesium Sulfate 4 GM Ivpb 4 GM/50 ML BAG IV (10:06)
--- NOTE | 2024-08-30 10:33 | XR_ITS ---
Examination: Abdomen sonogram, complete Date and time of exam: August 30, 2024 1219 hours INDICATIONS: Abdominal pain over 3 days, alcohol withdrawal. Technique: Multiple real-time grayscale transabdominal sonographic images of the abdomen have been obtained. Findings: Negative for gallstones Gallbladder wall 0.5 cm with edema Common bile duct 0.3 cm Pancreatic head 2.7 cm Aorta obscured by bowel gas Liver 15.6 cm fatty infiltration Normal hepatopedal portal venous flow Patent IVC Right kidney 9.3 cm cortex 1.0 cm Left kidney 9.8 cm cortex 1.4 cm Spleen 9.6 cm IMPRESSION: Suspicious for acute acalculous cholecystitis, recommend HIDA scan or repeat MRCP follow-up
--- NOTE | 2024-08-30 11:41 | PC.NURSE ---
Dr. Meyers made aware pt. complaining of pain to esophagus that radiates to right chest and around the back. Dr. Meyers coming to bedside.
--- NOTE | 2024-08-30 11:42 | EKG_ITS ---
[facility] Test Date: 2024-08-30 Pat Name: CASA DENTON [facility] Gender: Male [employer]ush [employer] Machine: XENIA : 1995 Requested By: Devika Meyers Order Number: [id number] Reading MD: Devika Meyers Measurements Intervals Christine Rate: 66 P: 23 MO: 134 QRS: 12 QRSD: 91 T: 17 QT: 380 QTc: 401 Interpretive Statements SINUS RHYTHM MODERATE VOLTAGE CRITERIA FOR LVH, CONSIDER NORMAL VARIANT Compared to ECG 08/28/2024 10:30:07 Sinus bradycardia no longer present ST (T wave) deviation no longer present Early repolarization no longer present /store/S0/[id number]/ecg/[id number].pdf
--- NOTE | 2024-08-30 11:46 | PC.NURSE ---
RT Harden aware of Stat EKG order
--- NOTE | 2024-08-30 11:56 | ESPR_ITS ---
<Statement entered by Devika Meyers MD - 08/30/24 17:30> I have reviewed the note and agree with the resident's assessment & plan with exceptions as below. I have personally reviewed labs, imaging, home meds/prior records, examined the patient, formulated and discussed management plan with the IM team. Patient examined at bedside today. Patient reports he still experiencing some abdominal pain and also chest pain. Ordered lipase, EKG and troponin which were all unremarkable. Will add Maalox for patient, give additional morphine. Will also order HIDA scan due to concern for acalculous cholecystitis seen on abdominal ultrasound. Will consider surgical consult after HIDA scan. Will continue with CIWA protocol at this time in addition to scheduled benzodiazepines. Also increase dose of cholestyramine to 2 packets twice a day due to pruritus. Patient continues to have bradycardia that is asymptomatic at this time, and this has been a chronic problem for him. Will continue to monitor with telemetry. N.p.o. midnight, repeat electrolytes, hematology and chemistry in AM. Devika Meyers, PGY-2 Internal Medicine Documentation for date of: 08/30/24 Subjective Subjective Interval history: Patient seen at bedside. No acute overnight events. Heart rate was in the low 40s overnight. Patient's abdominal pain unchanged from yesterday, still rated at 10 out of 10 throughout the whole abdomen. Patient has ongoing itchiness. Patient felt nauseous, but no vomiting. Exam Vital Signs Temp Pulse Resp BP Pulse Ox O2 Del Method O2 Flow Rate 97.2 F 54 L 14 121/64 95 Nasal Cannula 1 08/30/24 08:00 08/30/24 08:00 08/30/24 08:00 08/30/24 08:00 08/30/24 08:00 08/30/24 08:00 08/30/24 08:00 Narrative Exam Gen: Well-developed and well-nourished male in moderate distress. HEENT: NCAT, PERRLA, EOMI, MMM, anicteric conjunctivae. CVS: normal S1 and S2. RRR. No M/R/G. Resp: CTA B/L. No rhonchi, rales, crackles or wheezing. Abd: tender throughout, most pronounced in RUQ and epigastrium, voluntary guarding noted, non-distended. BS+ in all 4 quadrants. MSK: Good ROM in BUE & BLE. No edema or rash. Neuro: CN II-XII grossly intact. Strength 5/5 in BUE & BLE. Alert and oriented x3. CIWA 18 Objective Labs 08/30/24 04:25 08/30/24 04:25 Labs: Laboratory Results - last 24 hr 08/30/24 04:25 WBC 4.0 RBC 3.53 L Hgb 12.4 L Hct 36.1 L MCV 102 H MCH 35.1 H MCHC 34.3 RDW Std Deviation 51.1 H Plt Count 327 Neut % (Auto) 60 Lymph % (Auto) 28 [place] % (Auto) 8 Eos % (Auto) 4 Baso % (Auto) 1 Neut # (Auto) 2.4 Lymph # (Auto) 1.1 [place] # (Auto) 0.3 Eos # (Auto) 0.1 Baso # (Auto) 0.0 Immature Gran # (Auto) 0.00 Absolute Nucleated RBC 0.00 Immature Gran % 0 Nucleated RBC % 0 Sodium 140 Potassium 3.4 D Chloride 100 Carbon Dioxide 27.2 Anion Gap 13 BUN < 5 L Creatinine 0.9 Estim Creat Clear Calc 95.2 eGFR > 60 BUN/Creatinine Ratio 6 L Glucose 92 Calculated Osmolality 276 Calcium 9.1 Corrected Calcium 9.1 Phosphorus 4.0 Magnesium 1.4 L Total Bilirubin 0.4 AST 35 H ALT 23 Alkaline Phosphatase 144 H Total Protein 7.0 Albumin 4.3 Globulin 2.7 Albumin/Globulin Ratio 1.6 Quality Measures Quality Measures VTE prophylaxis Assessment & Plan Assessment Current Active Medications: Generic Name Dose Route Start Last Admin Trade Name Freq PRN Reason Stop Dose Admin Hydrocodone Bitart/Acetaminophen 1 tab 08/29/24 19:12 08/30/24 00:41 Hydrocodone/Apap 5/325 Tablet PO 09/03/24 19:11 1 tab Q6HR PRN Administration Pain 4-6 Al Hydrox/Mg Hydrox/Simethicone 30 ml 08/30/24 11:48 Mg Hyd/Al Hyd/Julian (Maalox Reg) Susp 30 Ml Udc PO 09/29/24 11:47 Q4HR PRN UPSET STOMACH/INDIGESTION Chlordiazepoxide HCl 50 mg 08/28/24 21:00 08/30/24 09:16 Chlordiazepoxide Hcl 25 Mg Capsule PO 09/02/24 20:59 50 mg BID APOORVA Administration Cholestyramine Resin 2 pkt 08/30/24 21:00 Cholestyramine/Sucrose 1 Pkt Ea PO 09/29/24 20:59 BID APOORVA Protocol Diazepam 5 mg 08/28/24 15:28 08/29/24 03:07 Diazepam Inj 5 Mg/Ml Vial 2 Ml IVP 09/02/24 06:57 5 mg Q4H PRN Administration CIWA SCORE 20-25 Diazepam 1 mg 08/28/24 15:27 08/29/24 11:59 Diazepam Inj 5 Mg/Ml Vial 2 Ml IVP 09/02/24 06:57 1 mg Q4H PRN Administration CIWA SCORE 8-13 Diazepam 2.5 mg 08/28/24 15:28 08/29/24 16:46 Diazepam Inj 5 Mg/Ml Vial 2 Ml IVP 09/02/24 06:57 2.5 mg Q4H PRN Administration CIWA SCORE 14-19 Ceftriaxone Sodium/Dextrose 1 gm in 50 mls @ 100 mls/hr 08/28/24 21:00 08/30/24 09:17 Rocephin/D5w 1gm Iv Premix IV 09/04/24 20:59 100 mls/hr QDAY APOORVA Administration Metoclopramide HCl 5 mg 08/30/24 00:00 08/30/24 05:08 Metoclopramide Inj 5 Mg/Ml Vial 2 Ml IVP 09/29/24 00:00 5 mg Q6HR APOORVA Administration Protocol Morphine Sulfate 2 mg 08/29/24 19:12 08/30/24 09:17 Morphine Sulf Inj 10 Mg/Ml Vial IVP 09/03/24 19:11 2 mg Q4HR PRN Administration Pain 7-10 or breakthrough Pantoprazole Sodium 40 mg 08/30/24 09:00 08/30/24 09:15 Pantoprazole Inj 40 Mg Vial IVP 09/29/24 08:59 40 mg BID APOORVA Administration Thiamine HCl 100 mg 08/28/24 09:00 08/30/24 09:15 Thiamine Inj 100 Mg/Ml Vial 2 Ml IVP 09/27/24 08:59 100 mg BID APOORVA Administration Plan Assessment: 29 years old male with past medical history of alcohol use disorder, 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, gastritis presented to the ED from [facility] due to alcohol withdrawal and was admitted to ICU for further management. #Alcohol-related liver disease #Cirrhosis with esophageal varices. #Upper GI bleeding. #Acute acalculous cholecystitis Patient reported black tarry stool over the last several days, hgb dropped from 13.5 10 days ago to 11.1 today. Patient reports severe abdominal pain mostly localized in RUQ/epigastrium. CTAP showed cirrhosis, no focal liver lesions, cholelithiasis, negative for cholecystitis. Labs showed AST 80, ALT 46, ALP 176. Initial glucose was 65, improved to 101. Child-Jacobson class A, MELD Na 9 points EGD 08/12: Grade 1 EV Minimally elevated Ammonia, no concern of hepatic encephalopathy Per review of records patient's alpha-1 antitrypsin negative, copper low/normal, LENA negative Patient had elevation of iron levels in the past. Iron levels elevated noted again, ferritin within normal limits. EGD 08/29/24: Showed grade 1 esophageal varices. Gastritis, characterized by erythema. Gastric motility disorder. Abdo US 08/30/24: showed acute acalculous cholecystititis Plan: - NPO from midnight - HIDA scan ordered for tomorrow AM - Changed Protonix to 40 mg IV twice daily - Increased Cholestyramine to 2 pkt BID for puritis - Reglan 5mg IV push - 2 g sodium diet - Ordered HFE gene mutation testing, follow-up out-patient #Acute blood loss anemia. Patient presented complaining of black tarry stools, labs showed hemoglobin 11.1, RBCs 3.24, hematocrit 31.4%. 10 days ago his hemoglobin was 13.5. Plan: - Transfuse if hemoglobin < 7 #Alcohol dependence with withdrawal. #Alcohol use disorder Patient's CIWA score was 35 after 15 mg of Valium in the ED. He was given loading dose of phenobarbital 260 mg IV. Patient has history of multiple admissions to the facility for alcohol withdrawal, was seen outpatient at [facility] for severe alcohol withdrawal, presented to ED for evaluation. Patient was prescribed Librium outpatient for management of alcohol withdrawal, patient denies taking any medication, reports that it got lost. Plan: - CIWA monitoring with Valium per CIWA protocol - Chlordiazepoxide 50mg twice daily -> taper in a.m. - IV thiamine twice daily, IV folate daily need to transition to p.o. #Sinus bradycardia Patient has asymptomatic sinus bradycardia, repeat EKG today shows sinus bradycardia as well. Patient is significantly bradycardic when sleeping. No history of any cardiac disease, has never seen a carpenter repair outpatient. - Consider cardiac workup outpatient #Hypomagnesemia - Correct and replace electrolytes as needed Health Maintenance: Diet: NPO. DVT prophylaxis: SCDs. GI prophylaxis: Protonix. Code status: FULL CODE. Disposition: Telemetry Case discussed with my attending Dr. Aguilar, and senior resident, Dr. Haris Purdy MD PGY-1 Attending Provider Attestation/Addendum I have discussed and was present for the essential components of the history, physical examination, diagnosis, and treatment plan with the resident. I agree with the patient's care as documented by the resident and amended herein by me. Deni Aguilar, DO. Although this document has been carefully reviewed, there may still be some phonetic and other typographical errors. These errors are purely grammatical due to imperfections in the software program and should not be construed in any way to compromise the substance of the patient's medical care during this visit. Patient seen and evaluated this AM. No acute events overnight, vital signs stable, patient afebrile, I/O8 11/1999 150. Labs largely unremarkable today. Endoscopy significant for grade 1 varices and gastritis. Considering the patient is having continued severe abdominal pain, an abdominal ultrasound was ordered which was suspicious for acute acalculous cholecystitis, we did order a HIDA scan and is pending. In the meantime, patient was started on ceftriaxone and Flagyl. We will consider consulting general surgery once results of HIDA scan are back. Will continue CIWA protocol and Librium for now and continue to monitor closely. Protonix also on board as well as Reglan and low-sodium diet.
[2024-08-30] MEDS: MORPHINE SULF INJ 10 MG/ML VIAL IVP (11:58)
[2024-08-30] MEDS: MG HYD/AL HYD/SIME (Maalox Reg) SUSP 30 ML UDC PO ×2 (11:59→23:35)
[2024-08-30] MEDS: DIAZEPAM INJ 5 MG/ML VIAL 2 ML 1 MG IVP ×2 (12:29→16:59)
[2024-08-30 13:17] LABS: Lipase 40 U/L (12-53); Troponin I < 0.002 ng/mL (0.0-0.045)
[2024-08-30] MEDS: HYDROmorphone INJ 2 MG/ML VIAL 0.5 MG IVP ×2 (18:40→23:35)
[2024-08-30] MEDS: CHOLESTYRAMINE/SUCROSE 1 PKT EA 2 PKT PO (20:55)
--- NOTE | 2024-08-30 22:49 | PD.IMPROG ---
Documentation for date of: 08/30/24 Subjective Subjective Interval history: Patient evaluated Hemoglobin hematocrit 12.4 and 36.1 Upper endoscopy showed gastric motility disorder as evidenced by the presence of food gastritis and 1 per esophageal varices Exam Vital Signs Temp Pulse Resp BP Pulse Ox O2 Del Method O2 Flow Rate 97.1 F 96 17 120/84 98 Room Air 1 08/30/24 20:00 08/30/24 20:00 08/30/24 20:00 08/30/24 20:00 08/30/24 20:00 08/30/24 20:00 08/30/24 12:00 Objective Labs 08/30/24 04:25 08/30/24 04:25 Labs: Laboratory Results - last 24 hr 08/30/24 08/30/24 04:25 12:29 WBC 4.0 RBC 3.53 L Hgb 12.4 L Hct 36.1 L MCV 102 H MCH 35.1 H MCHC 34.3 RDW Std Deviation 51.1 H Plt Count 327 Neut % (Auto) 60 Lymph % (Auto) 28 [place] % (Auto) 8 Eos % (Auto) 4 Baso % (Auto) 1 Neut # (Auto) 2.4 Lymph # (Auto) 1.1 [place] # (Auto) 0.3 Eos # (Auto) 0.1 Baso # (Auto) 0.0 Immature Gran # (Auto) 0.00 Absolute Nucleated RBC 0.00 Immature Gran % 0 Nucleated RBC % 0 Sodium 140 Potassium 3.4 D Chloride 100 Carbon Dioxide 27.2 Anion Gap 13 BUN < 5 L Creatinine 0.9 Estim Creat Clear Calc 95.2 eGFR > 60 BUN/Creatinine Ratio 6 L Glucose 92 Calculated Osmolality 276 Calcium 9.1 Corrected Calcium 9.1 Phosphorus 4.0 Magnesium 1.4 L Total Bilirubin 0.4 AST 35 H ALT 23 Alkaline Phosphatase 144 H Troponin I < 0.002 Total Protein 7.0 Albumin 4.3 Globulin 2.7 Albumin/Globulin Ratio 1.6 Lipase 40 D Impressions Impression: Gastric motility disorder patient on IV Reglan Gastritis 1+ esophageal varices not large enough for band ligation Advance diet to 2 g sodium diet Assessment & Plan A&P Narrative # Altered mental status due to acute alcohol withdrawal # Acute GI bleed most likely upper either due to mucosal oozing of blood due to chronic liver disease or esophageal variceal bleeding Plan Aggressive treatment for alcohol withdrawal Serial CBC IV Protonix 80 mg IV push every 12 Octreotide 50 mics IV push and then 50 mcg/h infusion N.p.o. Consent will be obtained from the family members for fiberoptic esophagogastroduodenoscopy with possible biopsy possible therapeutic intervention under intravenous moderate sedation Prognosis guarded Thank you very much for the opportunity to participate in the care of this patient Time Spent With Patient Time: Total time spent is greater than 50% in coordination of care (as documented) at patient's floor/unit and/or counseling patient:
[2024-08-31] VITALS (7 sets, daily range): BP systolic 106–138; BP diastolic 62–90; PULSE 50–81; RESP 9–16; TEMP 36.2–36.6; O2SAT 95–100; BMI 24.4
[2024-08-31] MEDS: MORPHINE SULF INJ 10 MG/ML VIAL 2 MG IVP ×4 (03:04→23:07)
[2024-08-31] MEDS: METOCLOPRAMIDE INJ 5 MG/ML VIAL 2 ML IVP ×3 (06:01→23:07)
[2024-08-31] MEDS: HYDROmorphone INJ 2 MG/ML VIAL 0.5 MG IVP ×3 (06:02→20:42)
[2024-08-31 06:30] LABS: Basophils # (Auto) 0.0 Thou/mm3 (0.0-0.2); Basophils % (Auto) 1 % (0-2.5); Eosinophils # (Auto) 0.2 Thou/mm3 (0.0-0.5); Eosinophils % (Auto) 4 % (0-10); Hematocrit 33.2 % (41.0-53.0); Hemoglobin 11.1 g/dL (13.5-16.0); Immature Granulocytes Auto 0.01 Thou/mm3 (0.00-0.00); Lymphocytes # (Auto) 1.3 Thou/mm3 (1.0-4.8); Lymphocytes % (Auto) 36 % (10-50); Mean Corpuscular HGB Conc 33.4 g/dl (31.0-37.0); Mean Corpuscular Hemoglobin 35.1 pg (25.0-35.0); Mean Corpuscular Volume 105 fL (80-100); Monocytes # (Auto) 0.4 Thou/mm3 (0.0-0.8); Monocytes % (Auto) 11 % (0-12); Neutrophils # (Auto) 1.8 Thou/mm3 (1.8-7.7); Neutrophils % (Auto) 48 % (37-80); Nucleated Red Blood Cell # 0.00 Thou/mm3 (0.00-0.00); Nucleated Red Blood Cell % 0 /100 WBC (0); Platelet Count 233 Thou/mm3 (140-440); RDW Standard Deviation 51.2 fL (35.1-43.9); Red Blood Count 3.16 Miln/mm3 (4.50-5.90); White Blood Count 3.8 Thou/mm3 (3.8-10.6)
[2024-08-31 07:03] LABS: INR 1.0 (0.9-1.3); Partial Thromboplastin Time 23.9 Seconds (22.0-36.0); Prothrombin Time 10.9 Seconds (9.0-12.2)
[2024-08-31 07:28] LABS: Alanine Aminotransferase 22 U/L (10-49); Albumin, Serum 3.7 gm/dL (3.5-5.0); Albumin/Globulin Ratio 1.5 (1.2-2.2); Alkaline Phosphatase 150 U/L (46-116); Anion Gap 12 (7-16); Aspartate Amino Transferase 44 U/L (0-34); BUN/Creatinine Ratio 6 Ratio (12-20); Bilirubin,Total 0.2 mg/dL (0.3-1.2); Blood Urea Nitrogen 6 mg/dL (9-23); Calcium 8.5 mg/dL (8.3-10.6); Calcium (Corrected) 8.7 mg/dL (8.5-10.1); Carbon Dioxide 23.7 mMol/L (20.0-31.0); Chloride 104 mMol/L (98-107); Creatinine (Component) 1.0 mg/dL (0.6-1.3); Estimated Creatinine Clearance 85.7 mL/min (>60); Globulin 2.5 gm/dL (2.3-3.5); Glucose 87 mg/dL (74-106); Magnesium 1.5 mg/dL (1.6-2.6); Osmolality,Calculated 276 (275-295); Phosphorous 4.3 mg/dL (2.4-5.1); Potassium 4.3 mMol/L (3.4-5.1); Sodium 140 mMol/L (136-145); Total Protein 6.2 gm/dL (5.7-8.2); eGFR > 60 See Note
--- NOTE | 2024-08-31 08:00 | XR_ITS ---
Examination: HIDA, hepatobiliary radioisotope scan . Date and time of exam: August 31, 2024 1421 hours INDICATIONS: Alcohol withdrawal, ultrasound August 30, 2024 thickened gallbladder wall Technique: 6.0 mCi of 99M Hepatolite administered. Serial imaging then obtained from immediate through 60 minutes. Findings: Radioisotope activity within the liver is reasonably homogenous. Gallbladder, no significant isotope accumulation in the common bile duct or small bowel Impression: Gallbladder activity is present, negative for cystic duct obstruction No significant common bile duct or small bowel activity, as clinically warranted, consider MRCP follow-up to assess the extrahepatic biliary system
[2024-08-31] MEDS: SODIUM CHLORIDE 0.9% 1000 ML 1,000 ML 75 ML IV (09:24)
[2024-08-31] MEDS: Magnesium Sulfate 2 GM Ivpb 2 GM/50 ML BAG IV (09:24)
[2024-08-31] MEDS: THIAMINE INJ 100 MG/ML VIAL 2 ML IVP ×2 (09:25→20:38)
[2024-08-31] MEDS: HYDROcodone/APAP 5/325 TABLET 1 TAB PO ×2 (10:50→19:46)
--- NOTE | 2024-08-31 10:50 | ESPR_ITS ---
Documentation for date of: 08/31/24 Subjective Subjective Interval history: Pt examined at bedside today. No acute overnight events. Pt is wondering if he is going to be able to drink something right now before his HIDA scan. He also says his abdominal pain is slightly there at this time. No other complaints at this time. Exam Vital Signs Temp Pulse Resp BP Pulse Ox O2 Del Method O2 Flow Rate 97.5 F 68 12 121/78 100 Room Air 1 08/31/24 08:00 08/31/24 08:00 08/31/24 08:00 08/31/24 08:00 08/31/24 08:00 08/31/24 08:00 08/31/24 08:00 Narrative Exam Gen: Well-developed and well-nourished male in moderate distress. HEENT: NCAT, PERRLA, EOMI, MMM, anicteric conjunctivae. CVS: normal S1 and S2. RRR. No M/R/G. Resp: CTA B/L. No rhonchi, rales, crackles or wheezing. Abd: Some tenderness to palpitation in abdomen, non-distended. BS+ in all 4 quadrants. MSK: Good ROM in BUE & BLE. No edema or rash. Neuro: CN II-XII grossly intact. Strength 5/5 in BUE & BLE. Alert and oriented x3. CIWA 18 Objective Labs 08/31/24 05:49 08/31/24 05:49 Labs: Laboratory Results - last 24 hr 08/30/24 08/31/24 12:29 05:49 WBC 3.8 RBC 3.16 L Hgb 11.1 L Hct 33.2 L MCV 105 H MCH 35.1 H MCHC 33.4 RDW Std Deviation 51.2 H Plt Count 233 D Neut % (Auto) 48 Lymph % (Auto) 36 [place] % (Auto) 11 Eos % (Auto) 4 Baso % (Auto) 1 Neut # (Auto) 1.8 Lymph # (Auto) 1.3 [place] # (Auto) 0.4 Eos # (Auto) 0.2 Baso # (Auto) 0.0 Immature Gran # (Auto) 0.01 H Absolute Nucleated RBC 0.00 Immature Gran % 0 Nucleated RBC % 0 PT 10.9 INR 1.0 APTT 23.9 Sodium 140 Potassium 4.3 D Chloride 104 Carbon Dioxide 23.7 Anion Gap 12 BUN 6 L Creatinine 1.0 Estim Creat Clear Calc 85.7 eGFR > 60 BUN/Creatinine Ratio 6 L Glucose 87 Calculated Osmolality 276 Calcium 8.5 Corrected Calcium 8.7 Phosphorus 4.3 Magnesium 1.5 L Total Bilirubin 0.2 L AST 44 H ALT 22 Alkaline Phosphatase 150 H Troponin I < 0.002 Total Protein 6.2 Albumin 3.7 D Globulin 2.5 Albumin/Globulin Ratio 1.5 Lipase 40 D Quality Measures Quality Measures VTE prophylaxis Assessment & Plan Assessment Current Active Medications: Generic Name Dose Route Start Last Admin Trade Name Freq PRN Reason Stop Dose Admin Hydrocodone Bitart/Acetaminophen 1 tab 08/29/24 19:12 08/30/24 00:41 Hydrocodone/Apap 5/325 Tablet PO 09/03/24 19:11 1 tab Q6HR PRN Administration Pain 4-6 Al Hydrox/Mg Hydrox/Simethicone 30 ml 08/30/24 11:48 08/30/24 23:35 Mg Hyd/Al Hyd/Julian (Maalox Reg) Susp 30 Ml Udc PO 09/29/24 11:47 30 ml Q4HR PRN Administration UPSET STOMACH/INDIGESTION Chlordiazepoxide HCl 50 mg 08/28/24 21:00 08/30/24 20:53 Chlordiazepoxide Hcl 25 Mg Capsule PO 09/02/24 20:59 50 mg BID APOORVA Administration Cholestyramine Resin 2 pkt 08/30/24 21:00 08/30/24 20:55 Cholestyramine/Sucrose 1 Pkt Ea PO 09/29/24 20:59 2 pkt BID APOORVA Administration Protocol Diazepam 5 mg 08/28/24 15:28 08/29/24 03:07 Diazepam Inj 5 Mg/Ml Vial 2 Ml IVP 09/02/24 06:57 5 mg Q4H PRN Administration CIWA SCORE 20-25 Diazepam 1 mg 08/28/24 15:27 08/30/24 16:59 Diazepam Inj 5 Mg/Ml Vial 2 Ml IVP 09/02/24 06:57 1 mg Q4H PRN Administration CIWA SCORE 8-13 Diazepam 2.5 mg 08/28/24 15:28 08/29/24 16:46 Diazepam Inj 5 Mg/Ml Vial 2 Ml IVP 09/02/24 06:57 2.5 mg Q4H PRN Administration CIWA SCORE 14-19 Hydromorphone HCl 0.5 mg 08/31/24 08:01 Hydromorphone Inj 2 Mg/Ml Vial IVP 09/04/24 18:30 Q4HR PRN BREAKTHROUGH PAIN 7-10 Ceftriaxone Sodium/Dextrose 1 gm in 50 mls @ 100 mls/hr 08/28/24 21:00 08/30/24 09:17 Rocephin/D5w 1gm Iv Premix IV 09/04/24 20:59 100 mls/hr QDAY APOORVA Administration Sodium Chloride 1,000 mls @ 75 mls/hr 08/31/24 07:58 08/31/24 09:24 Ns IV 08/31/24 21:17 75 mls/hr .[id number] APOORVA Administration Metronidazole 500 mg in 100 mls @ 200 mls/hr 08/31/24 08:12 Flagyl 500 Mg Iv IV 09/07/24 08:11 Q8HR APOORVA Melatonin 3 mg 08/31/24 21:00 Melatonin 3 Mg Tablet PO 09/30/24 20:59 HS APOORVA Metoclopramide HCl 5 mg 08/30/24 00:00 08/31/24 06:01 Metoclopramide Inj 5 Mg/Ml Vial 2 Ml IVP 09/29/24 00:00 5 mg Q6HR APOORVA Administration Protocol Morphine Sulfate 2 mg 08/31/24 07:59 08/31/24 08:04 Morphine Sulf Inj 10 Mg/Ml Vial IVP 09/03/24 19:11 2 mg Q4HR PRN Administration Pain 7-10 or breakthrough Protocol Pantoprazole Sodium 40 mg 08/30/24 09:00 08/31/24 09:24 Pantoprazole Inj 40 Mg Vial IVP 09/29/24 08:59 40 mg BID APOORVA Administration Thiamine HCl 100 mg 08/28/24 09:00 08/31/24 09:25 Thiamine Inj 100 Mg/Ml Vial 2 Ml IVP 09/27/24 08:59 100 mg BID APOORVA Administration Plan Assessment: 29 years old male with past medical history of alcohol use disorder, 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, gastritis presented to the ED from [facility] due to alcohol withdrawal and was admitted to ICU for further management. #Alcohol-related liver disease #Cirrhosis with esophageal varices. #Upper GI bleeding. #Acute acalculous cholecystitis Patient reported black tarry stool over the last several days, hgb dropped from 13.5 10 days ago to 11.1 today. Patient reports severe abdominal pain mostly localized in RUQ/epigastrium. CTAP showed cirrhosis, no focal liver lesions, cholelithiasis, negative for cholecystitis. Labs showed AST 80, ALT 46, ALP 176. Initial glucose was 65, improved to 101. Child-Jacobson class A, MELD Na 9 points EGD 08/12: Grade 1 EV Minimally elevated Ammonia, no concern of hepatic encephalopathy Per review of records patient's alpha-1 antitrypsin negative, copper low/normal, LENA negative Patient had elevation of iron levels in the past. Iron levels elevated noted again, ferritin within normal limits. EGD 08/29/24: Showed grade 1 esophageal varices. Gastritis, characterized by erythema. Gastric motility disorder. Abdo US 08/30/24: showed acute acalculous cholecystititis Plan: - HIDA scan today - Continuing Rocephin and Flagyl IV - Protonix to 40 mg IV twice daily - Continue Cholestyramine to 2 pkt BID - Reglan 5mg IV push - 2 g sodium diet - Ordered HFE gene mutation testing, follow-up out-patient #Acute blood loss anemia. Patient presented complaining of black tarry stools, labs showed hemoglobin 11.1, RBCs 3.24, hematocrit 31.4%. 10 days ago his hemoglobin was 13.5. Plan: - Transfuse if hemoglobin < 7 #Alcohol dependence with withdrawal. #Alcohol use disorder Patient's CIWA score was 35 after 15 mg of Valium in the ED. He was given loading dose of phenobarbital 260 mg IV. Patient has history of multiple admissions to the facility for alcohol withdrawal, was seen outpatient at [facility] for severe alcohol withdrawal, presented to ED for evaluation. Patient was prescribed Librium outpatient for management of alcohol withdrawal, patient denies taking any medication, reports that it got lost. Plan: - CIWA monitoring with Valium per CIWA protocol - Chlordiazepoxide 50mg twice daily -> taper in a.m. - IV thiamine twice daily, IV folate daily need to transition to p.o. #Sinus asymptomatic bradycardia Patient has asymptomatic sinus bradycardia, repeat EKG today shows sinus bradycardia as well. Patient is significantly bradycardic when sleeping. No history of any cardiac disease, has never seen a nurse informatics educator outpatient Plan: - Consider cardiac workup outpatient #Hypomagnesemia, resolved #Health Maintenance Disposition: Telemetry DVT prophylaxis: SCDs GI prophylaxis: Protonix Diet: NPO, will resume diet after HIDA CODE STATUS: Full code Patient seen and care discussed with my attending physician, Dr. Jeff Meyers, PGY-2 Attending Provider Attestation/Addendum I have discussed and was present for the essential components of the history, physical examination, diagnosis, and treatment plan with the resident. I agree with the patient's care as documented by the resident and amended herein by me. Deni Aguilar, DO. Although this document has been carefully reviewed, there may still be some phonetic and other typographical errors. These errors are purely grammatical due to imperfections in the software program and should not be construed in any way to compromise the substance of the patient's medical care during this visit. Patient seen and evaluated this AM. No acute events overnight, vital signs stable, patient afebrile. Labs largely unremarkable, HIDA scan pending in the afternoon today, urine culture still pending, will follow-up with results, may need surgical consult for cholecystectomy depending on HIDA scan results. Will continue to monitor closely, patient is doing well otherwise.
[2024-08-31] MEDS: metroNIDAZOLE/NS 500 MG IVPB 500 MG/100 ML BAG 200 MG IV ×3 (11:13→21:26)
[2024-08-31] MEDS: cefTRIAXone/D5w 1gm IV premix 1 GM/50 ML BAG IV (11:13)
[2024-08-31] MEDS: DIAZEPAM INJ 5 MG/ML VIAL 2 ML 1 MG IVP ×2 (12:23→22:07)
--- NOTE | 2024-08-31 18:29 | PD.IMPROG ---
Documentation for date of: 08/31/24 Subjective Subjective Interval history: Patient evaluated hemoglobin hematocrit to 11.1 and 33.2 Upper endoscopy showed 1 per esophageal varices gastric motility disorder as well as gastritis Exam Vital Signs Temp Pulse Resp BP Pulse Ox O2 Del Method O2 Flow Rate 97.6 F 54 L 12 116/74 95 Room Air 1 08/31/24 16:00 08/31/24 16:00 08/31/24 16:00 08/31/24 16:00 08/31/24 16:00 08/31/24 16:00 08/31/24 12:00 Objective Labs 08/31/24 05:49 08/31/24 05:49 Labs: Laboratory Results - last 24 hr 08/31/24 05:49 WBC 3.8 RBC 3.16 L Hgb 11.1 L Hct 33.2 L MCV 105 H MCH 35.1 H MCHC 33.4 RDW Std Deviation 51.2 H Plt Count 233 D Neut % (Auto) 48 Lymph % (Auto) 36 [place] % (Auto) 11 Eos % (Auto) 4 Baso % (Auto) 1 Neut # (Auto) 1.8 Lymph # (Auto) 1.3 [place] # (Auto) 0.4 Eos # (Auto) 0.2 Baso # (Auto) 0.0 Immature Gran # (Auto) 0.01 H Absolute Nucleated RBC 0.00 Immature Gran % 0 Nucleated RBC % 0 PT 10.9 INR 1.0 APTT 23.9 Sodium 140 Potassium 4.3 D Chloride 104 Carbon Dioxide 23.7 Anion Gap 12 BUN 6 L Creatinine 1.0 Estim Creat Clear Calc 85.7 eGFR > 60 BUN/Creatinine Ratio 6 L Glucose 87 Calculated Osmolality 276 Calcium 8.5 Corrected Calcium 8.7 Phosphorus 4.3 Magnesium 1.5 L Total Bilirubin 0.2 L AST 44 H ALT 22 Alkaline Phosphatase 150 H Total Protein 6.2 Albumin 3.7 D Globulin 2.5 Albumin/Globulin Ratio 1.5 Impressions Impression: Gastric motility disorder Multiple esophageal varices Gastritis advance diet Assessment & Plan A&P Narrative # Altered mental status due to acute alcohol withdrawal # Acute GI bleed most likely upper either due to mucosal oozing of blood due to chronic liver disease or esophageal variceal bleeding Plan Aggressive treatment for alcohol withdrawal Serial CBC IV Protonix 80 mg IV push every 12 Octreotide 50 mics IV push and then 50 mcg/h infusion N.p.o. Consent will be obtained from the family members for fiberoptic esophagogastroduodenoscopy with possible biopsy possible therapeutic intervention under intravenous moderate sedation Prognosis guarded Thank you very much for the opportunity to participate in the care of this patient Time Spent With Patient Time: Total time spent is greater than 50% in coordination of care (as documented) at patient's floor/unit and/or counseling patient:
[2024-08-31] MEDS: CHOLESTYRAMINE/SUCROSE 1 PKT EA 2 PKT PO (20:38)
[2024-08-31] MEDS: MELATONIN 3 MG TABLET PO (21:26)
[2024-09-01] VITALS (8 sets, daily range): BP systolic 100–133; BP diastolic 60–95; PULSE 51–75; RESP 15–18; TEMP 36–36.4; O2SAT 95–99; BMI 21.9
[2024-09-01] MEDS: MORPHINE SULF INJ 10 MG/ML VIAL 2 MG IVP (04:09)
[2024-09-01] MEDS: DIAZEPAM INJ 5 MG/ML VIAL 2 ML 1 MG IVP ×3 (04:34→19:59)
[2024-09-01] MEDS: METOCLOPRAMIDE INJ 5 MG/ML VIAL 2 ML IVP ×4 (05:17→23:29)
[2024-09-01] MEDS: metroNIDAZOLE/NS 500 MG IVPB 500 MG/100 ML BAG 200 MG IV ×3 (05:18→22:01)
[2024-09-01] MEDS: HYDROcodone/APAP 5/325 TABLET 1 TAB PO ×2 (05:33→16:48)
[2024-09-01 05:38] LABS: Basophils # (Auto) 0.0 Thou/mm3 (0.0-0.2); Basophils % (Auto) 1 % (0-2.5); Eosinophils # (Auto) 0.1 Thou/mm3 (0.0-0.5); Eosinophils % (Auto) 4 % (0-10); Hematocrit 34.3 % (41.0-53.0); Hemoglobin 11.3 g/dL (13.5-16.0); Immature Granulocytes Auto 0.01 Thou/mm3 (0.00-0.00); Lymphocytes # (Auto) 1.1 Thou/mm3 (1.0-4.8); Lymphocytes % (Auto) 39 % (10-50); Mean Corpuscular HGB Conc 32.9 g/dl (31.0-37.0); Mean Corpuscular Hemoglobin 34.6 pg (25.0-35.0); Mean Corpuscular Volume 105 fL (80-100); Monocytes # (Auto) 0.3 Thou/mm3 (0.0-0.8); Monocytes % (Auto) 11 % (0-12); Neutrophils # (Auto) 1.3 Thou/mm3 (1.8-7.7); Neutrophils % (Auto) 46 % (37-80); Nucleated Red Blood Cell # 0.00 Thou/mm3 (0.00-0.00); Nucleated Red Blood Cell % 0 /100 WBC (0); Platelet Count 276 Thou/mm3 (140-440); RDW Standard Deviation 52.0 fL (35.1-43.9); Red Blood Count 3.27 Miln/mm3 (4.50-5.90); White Blood Count 3.0 Thou/mm3 (3.8-10.6)
[2024-09-01 06:16] LABS: Alanine Aminotransferase 29 U/L (10-49); Albumin, Serum 4.0 gm/dL (3.5-5.0); Albumin/Globulin Ratio 1.6 (1.2-2.2); Alkaline Phosphatase 176 U/L (46-116); Anion Gap 11 (7-16); Aspartate Amino Transferase 52 U/L (0-34); BUN/Creatinine Ratio 6 Ratio (12-20); Bilirubin,Total 0.3 mg/dL (0.3-1.2); Blood Urea Nitrogen 6 mg/dL (9-23); Calcium 8.9 mg/dL (8.3-10.6); Calcium (Corrected) 8.9 mg/dL (8.5-10.1); Carbon Dioxide 28.4 mMol/L (20.0-31.0); Chloride 104 mMol/L (98-107); Creatinine (Component) 1.0 mg/dL (0.6-1.3); Estimated Creatinine Clearance 99.8 mL/min (>60); Globulin 2.5 gm/dL (2.3-3.5); Glucose 83 mg/dL (74-106); Magnesium 1.7 mg/dL (1.6-2.6); Osmolality,Calculated 281 (275-295); Phosphorous 4.8 mg/dL (2.4-5.1); Potassium 4.1 mMol/L (3.4-5.1); Sodium 143 mMol/L (136-145); Total Protein 6.5 gm/dL (5.7-8.2); eGFR > 60 See Note
[2024-09-01] MEDS: HYDROmorphone INJ 2 MG/ML VIAL 0.5 MG IVP (07:54)
[2024-09-01] MEDS: THIAMINE INJ 100 MG/ML VIAL 2 ML IVP ×2 (08:31→20:15)
[2024-09-01] MEDS: CHOLESTYRAMINE/SUCROSE 1 PKT EA 2 PKT PO ×2 (08:33→20:16)
[2024-09-01] MEDS: cefTRIAXone/D5w 1gm IV premix 1 GM/50 ML BAG IV (08:34)
[2024-09-01] MEDS: HYDROmorphone INJ 2 MG/ML VIAL 1 MG IVP ×4 (09:09→22:03)
--- NOTE | 2024-09-01 11:15 | ESPR_ITS ---
Documentation for date of: 09/01/24 Subjective Subjective Interval history: Patient seen at bedside. No acute overnight events. Patient still having abdominal pain rated at 10 out of 10, generalized to the whole abdomen. Pain settles with Dilaudid and morphine but comes back again. Ongoing itchiness. Patient mentions not being able to sleep at night. Last bowel movement 2 days ago. Exam Vital Signs Temp Pulse Resp BP Pulse Ox O2 Del Method O2 Flow Rate 97.1 F 53 L 15 113/78 99 Room Air 1 09/01/24 08:00 09/01/24 08:00 09/01/24 08:00 09/01/24 08:00 09/01/24 08:00 09/01/24 08:00 08/31/24 12:00 Narrative Exam Gen: Well-developed and well-nourished male in moderate distress. HEENT: NCAT, PERRLA, EOMI, MMM, anicteric conjunctivae. CVS: normal S1 and S2. RRR. No M/R/G. Resp: CTA B/L. No rhonchi, rales, crackles or wheezing. Abd: Some tenderness to palpitation in abdomen, non-distended. BS+ in all 4 quadrants. MSK: Good ROM in BUE & BLE. No edema or rash. Neuro: CN II-XII grossly intact. Strength 5/5 in BUE & BLE. Alert and oriented x3. Latest CIWA 10. Objective Labs 09/01/24 04:25 09/01/24 04:25 Labs: Laboratory Results - last 24 hr 09/01/24 04:25 WBC 3.0 L RBC 3.27 L Hgb 11.3 L Hct 34.3 L MCV 105 H MCH 34.6 MCHC 32.9 RDW Std Deviation 52.0 H Plt Count 276 D Neut % (Auto) 46 Lymph % (Auto) 39 [place] % (Auto) 11 Eos % (Auto) 4 Baso % (Auto) 1 Neut # (Auto) 1.3 L Lymph # (Auto) 1.1 [place] # (Auto) 0.3 Eos # (Auto) 0.1 Baso # (Auto) 0.0 Immature Gran # (Auto) 0.01 H Absolute Nucleated RBC 0.00 Immature Gran % 0 Nucleated RBC % 0 Sodium 143 Potassium 4.1 Chloride 104 Carbon Dioxide 28.4 Anion Gap 11 BUN 6 L Creatinine 1.0 Estim Creat Clear Calc 99.8 eGFR > 60 BUN/Creatinine Ratio 6 L Glucose 83 Calculated Osmolality 281 Calcium 8.9 Corrected Calcium 8.9 Phosphorus 4.8 Magnesium 1.7 Total Bilirubin 0.3 AST 52 H ALT 29 Alkaline Phosphatase 176 H D Total Protein 6.5 Albumin 4.0 Globulin 2.5 Albumin/Globulin Ratio 1.6 Quality Measures Quality Measures VTE prophylaxis Assessment & Plan Assessment Current Active Medications: Generic Name Dose Route Start Last Admin Trade Name Freq PRN Reason Stop Dose Admin Acetaminophen 325 mg 09/01/24 08:25 Acetaminophen 325 Mg Tablet PO 10/01/24 08:24 Q6HR PRN Fever >100.4 OR pain 1-3 Hydrocodone Bitart/Acetaminophen 1 tab 08/29/24 19:12 09/01/24 05:33 Hydrocodone/Apap 5/325 Tablet PO 09/03/24 19:11 1 tab Q6HR PRN Administration Pain 4-6 Al Hydrox/Mg Hydrox/Simethicone 30 ml 08/30/24 11:48 08/30/24 23:35 Mg Hyd/Al Hyd/Julian (Maalox Reg) Susp 30 Ml Udc PO 09/29/24 11:47 30 ml Q4HR PRN Administration UPSET STOMACH/INDIGESTION Bisacodyl 5 mg 09/01/24 09:30 Bisacodyl 5 Mg Tabec PO 10/01/24 09:29 QDAY APOORVA Protocol Chlordiazepoxide HCl 50 mg 08/28/24 21:00 09/01/24 08:32 Chlordiazepoxide Hcl 25 Mg Capsule PO 09/02/24 20:59 50 mg BID APOORVA Administration Cholestyramine Resin 2 pkt 08/30/24 21:00 09/01/24 08:33 Cholestyramine/Sucrose 1 Pkt Ea PO 09/29/24 20:59 2 pkt BID APOORVA Administration Protocol Diazepam 5 mg 08/28/24 15:28 08/29/24 03:07 Diazepam Inj 5 Mg/Ml Vial 2 Ml IVP 09/02/24 06:57 5 mg Q4H PRN Administration CIWA SCORE 20-25 Diazepam 1 mg 08/28/24 15:27 09/01/24 04:34 Diazepam Inj 5 Mg/Ml Vial 2 Ml IVP 09/02/24 06:57 1 mg Q4H PRN Administration CIWA SCORE 8-13 Diazepam 2.5 mg 08/28/24 15:28 08/29/24 16:46 Diazepam Inj 5 Mg/Ml Vial 2 Ml IVP 09/02/24 06:57 2.5 mg Q4H PRN Administration CIWA SCORE 14-19 Hydromorphone HCl 1 mg 09/01/24 08:25 09/01/24 09:09 Hydromorphone Inj 2 Mg/Ml Vial IVP 09/04/24 18:30 1 mg Q4HR PRN Administration BREAKTHROUGH PAIN 7-10 Ceftriaxone Sodium/Dextrose 1 gm in 50 mls @ 100 mls/hr 08/28/24 21:00 09/01/24 08:34 Rocephin/D5w 1gm Iv Premix IV 09/04/24 20:59 100 mls/hr QDAY APOORVA Administration Metronidazole 500 mg in 100 mls @ 200 mls/hr 08/31/24 08:12 09/01/24 05:18 Flagyl 500 Mg Iv IV 09/07/24 08:11 200 mls/hr Q8HR APOORVA Administration Melatonin 6 mg 09/01/24 21:00 Melatonin 3 Mg Tablet PO 10/01/24 20:59 HS APOORVA Metoclopramide HCl 5 mg 08/30/24 00:00 09/01/24 05:17 Metoclopramide Inj 5 Mg/Ml Vial 2 Ml IVP 09/29/24 00:00 5 mg Q6HR APOORVA Administration Protocol Pantoprazole Sodium 40 mg 08/30/24 09:00 09/01/24 08:30 Pantoprazole Inj 40 Mg Vial IVP 09/29/24 08:59 40 mg BID APOORVA Administration Polyethylene Glycol 17 gm 09/01/24 09:30 Polyethylene Glycol 17 Gm Packet PO 10/01/24 09:29 QDAY APOORVA Thiamine HCl 100 mg 08/28/24 09:00 09/01/24 08:31 Thiamine Inj 100 Mg/Ml Vial 2 Ml IVP 09/27/24 08:59 100 mg BID APOORVA Administration Plan Assessment: 29 years old male with past medical history of alcohol use disorder, 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, gastritis presented to the ED from [facility] due to alcohol withdrawal and was admitted to ICU for further management. N ow downgraded to medical floor to manage ongoing issues. #Alcohol-related liver disease #Cirrhosis with esophageal varices. #Upper GI bleeding. #Acute acalculous cholecystitis Patient reported black tarry stool over the last several days, hgb dropped from 13.5 10 days ago to 11.1 today. Patient reports severe abdominal pain mostly localized in RUQ/epigastrium. CTAP showed cirrhosis, no focal liver lesions, cholelithiasis, negative for cholecystitis. Labs showed AST 80, ALT 46, ALP 176. Initial glucose was 65, improved to 101. Child-Jacobson class A, MELD Na 9 points EGD 08/12: Grade 1 EV Minimally elevated Ammonia, no concern of hepatic encephalopathy Per review of records patient's alpha-1 antitrypsin negative, copper low/normal, LENA negative Patient had elevation of iron levels in the past. Iron levels elevated noted again, ferritin within normal limits. EGD 08/29/24: Showed grade 1 esophageal varices. Gastritis, characterized by erythema. Gastric motility disorder. Abdo US 08/30/24: showed acute acalculous cholecystititis HIDA scan 08/31/2024: Showed gallbladder working, no cystic duct obstruction, recommended MRCP to assess x-ray of biliary system Plan: ?Dr. Tello was made aware that patient's abdominal pain is still not improving, he will see patient later this afternoon ?Repeating lipase?follow result ? Procalcitonin?follow result ? CRP?follow results ? Increased Dilaudid to 1 mg IV as needed - Continuing Rocephin and Flagyl IV - Protonix to 40 mg IV twice daily - Continue Cholestyramine to 2 pkt BID - Reglan 5mg IV push - 2 g sodium diet - Ordered HFE gene mutation testing, follow-up out-patient #Alcohol dependence with withdrawal?CIWA currently 10 #Alcohol use disorder Patient's CIWA score was 35 after 15 mg of Valium in the ED. He was given loading dose of phenobarbital 260 mg IV. Patient has history of multiple admissions to the facility for alcohol withdrawal, was seen outpatient at [facility] for severe alcohol withdrawal, presented to ED for evaluation. Patient was prescribed Librium outpatient for management of alcohol withdrawal, patient denies taking any medication, reports that it got lost. Plan: - CIWA monitoring with Valium per CIWA protocol - Chlordiazepoxide 50mg twice daily -> taper in a.m. - IV thiamine twice daily, IV folate daily need to transition to p.o. #Insomnia - Increased melatonin to 6mg qHS - Added Trazadone 50mg qHS #Acute blood loss anemia. Patient presented complaining of black tarry stools, labs showed hemoglobin 11.1, RBCs 3.24, hematocrit 31.4%. 10 days ago his hemoglobin was 13.5. Plan: - Transfuse if hemoglobin < 7 #Sinus asymptomatic bradycardia Patient has asymptomatic sinus bradycardia, repeat EKG today shows sinus bradycardia as well. Patient is significantly bradycardic when sleeping. No history of any cardiac disease, has never seen a semiconductor testing group leader outpatient Plan: - Consider cardiac workup outpatient #Hypomagnesemia, resolved #Health Maintenance DVT prophylaxis: SCDs GI prophylaxis: Protonix Diet: PUD diet CODE STATUS: Full code Case discussed with my attending Dr. Jeff Purdy MD PGY-1 Attending Provider Attestation/Addendum I have discussed and was present for the essential components of the history, physical examination, diagnosis, and treatment plan with the resident. I agree with the patient's care as documented by the resident and amended herein by me. Deni Aguilar DO. Although this document has been carefully reviewed, there may still be some phonetic and other typographical errors. These errors are purely grammatical due to imperfections in the software program and should not be construed in any way to compromise the substance of the patient's medical care during this visit. Patient seen and evaluated this AM. No acute events overnight, vital signs stable, patient afebrile. Patient still has complaints of severe right upper quadrant and epigastric pain which radiates to his bilateral flanks. HIDA scan does demonstrate normal gallbladder function, cause of pain may just be the distended liver capsule however will wait for further GI recommendations. Hepatitis panel pending. Will add on trazodone for sleep and continue with Dilaudid for pain management.
[2024-09-01 12:29] LABS: C-Reactive Protein < 0.5 mg/dL (0.0-0.9); Lipase 30 U/L (12-53); Procalcitonin 0.07 ng/ml (0.0-0.49)
--- NOTE | 2024-09-01 18:23 | PD.IMPROG ---
Documentation for date of: 09/01/24 Subjective Subjective Interval history: Patient evaluated hemoglobin hematocrit 11.3 and 34.3 Exam Vital Signs Temp Pulse Resp BP Pulse Ox O2 Del Method O2 Flow Rate 97.6 F 75 18 131/68 H 95 Room Air 1 09/01/24 16:00 09/01/24 16:08 09/01/24 16:00 09/01/24 16:00 09/01/24 16:00 09/01/24 16:00 09/01/24 16:00 Objective Labs 09/01/24 04:25 09/01/24 04:25 Labs: Laboratory Results - last 24 hr 09/01/24 09/01/24 04:25 11:32 WBC 3.0 L RBC 3.27 L Hgb 11.3 L Hct 34.3 L MCV 105 H MCH 34.6 MCHC 32.9 RDW Std Deviation 52.0 H Plt Count 276 D Neut % (Auto) 46 Lymph % (Auto) 39 [place] % (Auto) 11 Eos % (Auto) 4 Baso % (Auto) 1 Neut # (Auto) 1.3 L Lymph # (Auto) 1.1 [place] # (Auto) 0.3 Eos # (Auto) 0.1 Baso # (Auto) 0.0 Immature Gran # (Auto) 0.01 H Absolute Nucleated RBC 0.00 Immature Gran % 0 Nucleated RBC % 0 Sodium 143 Potassium 4.1 Chloride 104 Carbon Dioxide 28.4 Anion Gap 11 BUN 6 L Creatinine 1.0 Estim Creat Clear Calc 99.8 eGFR > 60 BUN/Creatinine Ratio 6 L Glucose 83 Calculated Osmolality 281 Calcium 8.9 Corrected Calcium 8.9 Phosphorus 4.8 Magnesium 1.7 Total Bilirubin 0.3 AST 52 H ALT 29 Alkaline Phosphatase 176 H D C-Reactive Prot, Quant < 0.5 Total Protein 6.5 Albumin 4.0 Globulin 2.5 Albumin/Globulin Ratio 1.6 Lipase 30 D Procalcitonin 0.07 Impressions Impression: Gastritis Gastric motility disorder 1+ esophageal varices Continue current management Assessment & Plan A&P Narrative # Altered mental status due to acute alcohol withdrawal # Acute GI bleed most likely upper either due to mucosal oozing of blood due to chronic liver disease or esophageal variceal bleeding Plan Aggressive treatment for alcohol withdrawal Serial CBC IV Protonix 80 mg IV push every 12 Octreotide 50 mics IV push and then 50 mcg/h infusion N.p.o. Consent will be obtained from the family members for fiberoptic esophagogastroduodenoscopy with possible biopsy possible therapeutic intervention under intravenous moderate sedation Prognosis guarded Thank you very much for the opportunity to participate in the care of this patient Time Spent With Patient Time: Total time spent is greater than 50% in coordination of care (as documented) at patient's floor/unit and/or counseling patient:
[2024-09-01] MEDS: ACETAMINOPHEN 325 MG TABLET PO (19:09)
[2024-09-01] MEDS: MELATONIN 3 MG TABLET 6 MG PO (20:14)
[2024-09-02] VITALS (7 sets, daily range): BP systolic 103–142; BP diastolic 59–77; PULSE 56–88; RESP 16–19; TEMP 36.1–36.8; O2SAT 94–99; BMI 21.9
[2024-09-02] MEDS: METOCLOPRAMIDE INJ 5 MG/ML VIAL 2 ML IVP ×3 (05:11→17:52)
[2024-09-02] MEDS: metroNIDAZOLE/NS 500 MG IVPB 500 MG/100 ML BAG 200 MG IV ×3 (05:12→21:44)
[2024-09-02] MEDS: HYDROmorphone INJ 2 MG/ML VIAL 1 MG IVP ×3 (05:43→10:37)
[2024-09-02 06:14] LABS: Basophils # (Auto) 0.0 Thou/mm3 (0.0-0.2); Basophils % (Auto) 1 % (0-2.5); Eosinophils # (Auto) 0.2 Thou/mm3 (0.0-0.5); Eosinophils % (Auto) 4 % (0-10); Hematocrit 34.0 % (41.0-53.0); Hemoglobin 11.3 g/dL (13.5-16.0); Immature Granulocytes Auto 0.01 Thou/mm3 (0.00-0.00); Lymphocytes # (Auto) 1.1 Thou/mm3 (1.0-4.8); Lymphocytes % (Auto) 31 % (10-50); Mean Corpuscular HGB Conc 33.2 g/dl (31.0-37.0); Mean Corpuscular Hemoglobin 34.6 pg (25.0-35.0); Mean Corpuscular Volume 104 fL (80-100); Monocytes # (Auto) 0.5 Thou/mm3 (0.0-0.8); Monocytes % (Auto) 14 % (0-12); Neutrophils # (Auto) 1.7 Thou/mm3 (1.8-7.7); Neutrophils % (Auto) 50 % (37-80); Nucleated Red Blood Cell # 0.00 Thou/mm3 (0.00-0.00); Nucleated Red Blood Cell % 0 /100 WBC (0); Platelet Count 239 Thou/mm3 (140-440); RDW Standard Deviation 50.6 fL (35.1-43.9); Red Blood Count 3.27 Miln/mm3 (4.50-5.90); White Blood Count 3.5 Thou/mm3 (3.8-10.6)
[2024-09-02 06:47] LABS: Alanine Aminotransferase 29 U/L (10-49); Albumin, Serum 4.1 gm/dL (3.5-5.0); Albumin/Globulin Ratio 1.6 (1.2-2.2); Alkaline Phosphatase 157 U/L (46-116); Anion Gap 9 (7-16); Aspartate Amino Transferase 53 U/L (0-34); BUN/Creatinine Ratio 6 Ratio (12-20); Bilirubin,Total 0.4 mg/dL (0.3-1.2); Blood Urea Nitrogen 6 mg/dL (9-23); Calcium 9.0 mg/dL (8.3-10.6); Calcium (Corrected) 9.0 mg/dL (8.5-10.1); Carbon Dioxide 27.9 mMol/L (20.0-31.0); Chloride 103 mMol/L (98-107); Creatinine (Component) 1.0 mg/dL (0.6-1.3); Estimated Creatinine Clearance 99.8 mL/min (>60); Globulin 2.5 gm/dL (2.3-3.5); Glucose 99 mg/dL (74-106); Magnesium 1.2 mg/dL (1.6-2.6); Osmolality,Calculated 277 (275-295); Phosphorous 4.8 mg/dL (2.4-5.1); Potassium 4.0 mMol/L (3.4-5.1); Sodium 140 mMol/L (136-145); Total Protein 6.6 gm/dL (5.7-8.2); eGFR > 60 See Note
[2024-09-02] MEDS: HYDROcodone/APAP 5/325 TABLET 1 TAB PO ×2 (06:48→13:16)
[2024-09-02] MEDS: POLYETHYLENE GLYCOL 17 GM PACKET PO (08:07)
[2024-09-02] MEDS: CHOLESTYRAMINE/SUCROSE 1 PKT EA 2 PKT PO ×2 (08:07→20:26)
[2024-09-02] MEDS: cefTRIAXone/D5w 1gm IV premix 1 GM/50 ML BAG IV (08:08)
[2024-09-02] MEDS: THIAMINE INJ 100 MG/ML VIAL 2 ML IVP ×2 (08:15→20:26)
--- NOTE | 2024-09-02 09:27 | ESPR_ITS ---
Documentation for date of: 09/02/24 Subjective Subjective Interval history: Patient seen at bedside. No acute overnight events patient is in a lot of pain today, worse from yesterday, rates abdominal pain 10 out of 10 that goes up to his chest and to the back. Pain does not change with position or with eating. Pain settles with Dilaudid which helps for about an hour before returning. Patient required around 6.5 mg of hydromorphone IV over the 24-hour. Last bowel movement was 2 days ago, passing gas. Exam Vital Signs Temp Pulse Resp BP Pulse Ox O2 Del Method O2 Flow Rate 97.0 F 64 18 107/77 96 Room Air 1 09/02/24 08:00 09/02/24 08:00 09/02/24 08:00 09/02/24 08:00 09/02/24 08:00 09/02/24 08:00 09/01/24 16:00 Narrative Exam Gen: Well-developed and well-nourished male in moderate distress. HEENT: NCAT, PERRLA, EOMI, MMM, anicteric conjunctivae. CVS: normal S1 and S2. RRR. No M/R/G. Resp: CTA B/L. No rhonchi, rales, crackles or wheezing. Abd: Non-distended. Voluntary + Involuntary guarding present. Abdo feels firm. Tenderness with minimal palpation. BS+ in all 4 quadrants. MSK: Good ROM in BUE & BLE. No edema or rash. Neuro: CN II-XII grossly intact. Strength 5/5 in BUE & BLE. Alert and oriented x3. Latest CIWA 0. Objective Labs 09/02/24 05:50 09/02/24 05:50 Labs: Laboratory Results - last 24 hr 09/01/24 09/02/24 11:32 05:50 WBC 3.5 L RBC 3.27 L Hgb 11.3 L Hct 34.0 L MCV 104 H MCH 34.6 MCHC 33.2 RDW Std Deviation 50.6 H Plt Count 239 D Neut % (Auto) 50 Lymph % (Auto) 31 [place] % (Auto) 14 H Eos % (Auto) 4 Baso % (Auto) 1 Neut # (Auto) 1.7 L Lymph # (Auto) 1.1 [place] # (Auto) 0.5 Eos # (Auto) 0.2 Baso # (Auto) 0.0 Immature Gran # (Auto) 0.01 H Absolute Nucleated RBC 0.00 Immature Gran % 0 Nucleated RBC % 0 Sodium 140 Potassium 4.0 Chloride 103 Carbon Dioxide 27.9 Anion Gap 9 BUN 6 L Creatinine 1.0 Estim Creat Clear Calc 99.8 eGFR > 60 BUN/Creatinine Ratio 6 L Glucose 99 Calculated Osmolality 277 Calcium 9.0 Corrected Calcium 9.0 Phosphorus 4.8 Magnesium 1.2 L Total Bilirubin 0.4 AST 53 H ALT 29 Alkaline Phosphatase 157 H C-Reactive Prot, Quant < 0.5 Total Protein 6.6 Albumin 4.1 Globulin 2.5 Albumin/Globulin Ratio 1.6 Lipase 30 D Procalcitonin 0.07 Quality Measures Quality Measures VTE prophylaxis Assessment & Plan Assessment Current Active Medications: Generic Name Dose Route Start Last Admin Trade Name Freq PRN Reason Stop Dose Admin Acetaminophen 325 mg 09/01/24 08:25 09/01/24 19:09 Acetaminophen 325 Mg Tablet PO 10/01/24 08:24 325 mg Q6HR PRN Administration Fever >100.4 OR pain 1-3 Hydrocodone Bitart/Acetaminophen 1 tab 08/29/24 19:12 09/02/24 06:48 Hydrocodone/Apap 5/325 Tablet PO 09/03/24 19:11 1 tab Q6HR PRN Administration Pain 4-6 Al Hydrox/Mg Hydrox/Simethicone 30 ml 08/30/24 11:48 08/30/24 23:35 Mg Hyd/Al Hyd/Julian (Maalox Reg) Susp 30 Ml Udc PO 09/29/24 11:47 30 ml Q4HR PRN Administration UPSET STOMACH/INDIGESTION Bisacodyl 5 mg 09/01/24 09:30 09/02/24 08:07 Bisacodyl 5 Mg Tabec PO 10/01/24 09:29 5 mg QDAY APOORVA Administration Protocol Chlordiazepoxide HCl 50 mg 08/28/24 21:00 09/02/24 08:07 Chlordiazepoxide Hcl 25 Mg Capsule PO 09/02/24 20:59 50 mg BID APOORVA Administration Cholestyramine Resin 2 pkt 08/30/24 21:00 09/02/24 08:07 Cholestyramine/Sucrose 1 Pkt Ea PO 09/29/24 20:59 2 pkt BID APOORVA Administration Protocol Hydromorphone HCl 1 mg 09/02/24 08:25 Hydromorphone Inj 2 Mg/Ml Vial IVP 09/07/24 08:24 Q4HR PRN BREAKTHROUGH PAIN 7-10 Ceftriaxone Sodium/Dextrose 1 gm in 50 mls @ 100 mls/hr 08/28/24 21:00 09/02/24 08:08 Rocephin/D5w 1gm Iv Premix IV 09/04/24 20:59 100 mls/hr QDAY APOORVA Administration Metronidazole 500 mg in 100 mls @ 200 mls/hr 08/31/24 08:12 09/02/24 05:12 Flagyl 500 Mg Iv IV 09/07/24 08:11 200 mls/hr Q8HR APOORVA Administration Magnesium Sulfate 4 gm in 50 mls @ 12.5 mls/hr 09/02/24 07:03 Magnesium Sulfate Ivpb IV 09/02/24 11:02 X1 ONE Melatonin 6 mg 09/01/24 21:00 09/01/24 20:14 Melatonin 3 Mg Tablet PO 10/01/24 20:59 6 mg HS APOORVA Administration Metoclopramide HCl 5 mg 08/30/24 00:00 09/02/24 05:11 Metoclopramide Inj 5 Mg/Ml Vial 2 Ml IVP 09/29/24 00:00 5 mg Q6HR APOORVA Administration Protocol Pantoprazole Sodium 40 mg 08/30/24 09:00 09/02/24 08:07 Pantoprazole Inj 40 Mg Vial IVP 09/29/24 08:59 40 mg BID APOORVA Administration Polyethylene Glycol 17 gm 09/01/24 09:30 09/02/24 08:07 Polyethylene Glycol 17 Gm Packet PO 10/01/24 09:29 17 gm QDAY APOORVA Administration Thiamine HCl 100 mg 08/28/24 09:00 09/02/24 08:15 Thiamine Inj 100 Mg/Ml Vial 2 Ml IVP 09/27/24 08:59 100 mg BID APOORVA Administration Trazodone HCl 50 mg 09/01/24 21:00 09/01/24 20:15 Trazodone Hcl 50 Mg Tablet PO 10/01/24 20:59 50 mg HS APOORVA Administration Plan Assessment: 29 years old male with past medical history of alcohol use disorder, 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 N ow downgraded to medical floor to manage ongoing issues. #Alcohol-related liver disease #Cirrhosis with esophageal varices. #Upper GI bleeding. #Acute acalculous cholecystitis Patient reported black tarry stool over the last several days, hgb dropped from 13.5 10 days ago to 11.1 today. Patient reports severe abdominal pain mostly localized in RUQ/epigastrium. CTAP showed cirrhosis, no focal liver lesions, cholelithiasis, negative for cholecystitis. Labs showed AST 80, ALT 46, ALP 176. Initial glucose was 65, improved to 101. Child-Jacobson class A, MELD Na 9 points EGD 08/12: Grade 1 EV Minimally elevated Ammonia, no concern of hepatic encephalopathy Per review of records patient's alpha-1 antitrypsin negative, copper low/normal, LENA negative Patient had elevation of iron levels in the past. Iron levels elevated noted again, ferritin within normal limits. EGD 08/29/24: Showed grade 1 esophageal varices. Gastritis, characterized by erythema. Gastric motility disorder. Abdo US 08/30/24: showed acute acalculous cholecystititis HIDA scan 08/31/2024: Showed gallbladder working, no cystic duct obstruction, recommended MRCP to assess x-ray of biliary system Plan: ? CT abdomen to rule out pancreatitis ? MRCP tomorrow ? Dr. Tello was made aware that patient's abdominal pain is still not improving, he will see patient later this afternoon - Continuing Rocephin and Flagyl IV - Protonix to 40 mg IV twice daily - Continue Cholestyramine to 2 pkt BID - Reglan 5mg IV push - 2 g sodium diet - Ordered HFE gene mutation testing, follow-up out-patient #Pain management Patient required Dilaudid approximately 6.5 mg IV over the past 24 hours ? Increased Dilaudid to 1.5 mg IV q4h PRN ? Added Toradol 30mg IV q6h PRN #Alcohol dependence with withdrawal?CIWA - currently 0 #Alcohol use disorder Patient's CIWA score was 35 after 15 mg of Valium in the ED. He was given loading dose of phenobarbital 260 mg IV. Patient has history of multiple admissions to the facility for alcohol withdrawal, was seen outpatient at [facility] for severe alcohol withdrawal, presented to ED for evaluation. Patient was prescribed Librium outpatient for management of alcohol withdrawal, patient denies taking any medication, reports that it got lost. Plan: - CIWA monitoring with Valium per CIWA protocol - Chlordiazepoxide 50mg twice daily -> taper in a.m. - IV thiamine twice daily, IV folate daily need to transition to p.o. #Insomnia Slept well after increase in Melatonin and addition of Trazadone Plan: - Continue Melatonin 6mg qHS - Continue Trazadone 50mg qHS #Acute blood loss anemia. Patient presented complaining of black tarry stools, labs showed hemoglobin 11.1, RBCs 3.24, hematocrit 31.4%. 10 days ago his hemoglobin was 13.5. Plan: - Transfuse if hemoglobin < 7 #Sinus asymptomatic bradycardia Patient has asymptomatic sinus bradycardia, repeat EKG today shows sinus bradycardia as well. Patient is significantly bradycardic when sleeping. No history of any cardiac disease, has never seen a assistant facility manager outpatient Plan: - Consider cardiac workup outpatient #Hypomagnesemia, resolved #Health Maintenance DVT prophylaxis: SCDs GI prophylaxis: Protonix Diet: PUD diet CODE STATUS: Full code Case discussed with my attending Dr. Jeff Purdy MD PGY-1 Attending Provider Attestation/Addendum Patient seen and evaluated this AM. In Short, I have discussed and was present for the essential components of the history, physical examination, diagnosis, and treatment plan with the resident. I agree with the patient's care as documented by the resident and amended herein by me. Deni Aguilar DO. Although this document has been carefully reviewed, there may still be some phonetic and other typographical errors. These errors are purely grammatical due to imperfections in the software program and should not be construed in any way to compromise the substance of the patient's medical care during this visit. Patient seen and evaluated this AM. In short, 29-year-old male with significant past medical history of alcohol abuse, liver cirrhosis, esophageal varices and gastritis, presented to ED for alcohol withdrawal. Patient endorses drinking hard liquor, especially in the last year since his left him however was hesitant to comment on specific amount. Patient initially admitted to the ICU for severe withdrawal symptoms, downgraded several days ago to the medicine team. Withdrawal symptoms are under control pretty much resolved at this point however the patient is still having severe abdominal pain which is in the epigastric region and radiates to his bilateral flanks and the back. Pancreatitis initially ruled out, initial abdominal x-ray was suspicious for acute acalculous cholecystitis, we did get a HIDA scan on 08/31 which demonstrated gallbladder activity and was negative for any duct obstructions however considering the patient's continued severe abdominal pain, we got a repeat CT abdomen and pelvis today which is only significant for abundant stool throughout the entire colon. We will order an MRCP for tomorrow, GI is already on the case, appreciate recommendations. Etiology unknown for the patient's severe pain at this time, possible liver cirrhosis for a large liver pushing on the Zen's capsule but unclear. I am continuing the patient on ceftriaxone and Flagyl at this time for any potential cholecystitis at least until MRCP is done.
[2024-09-02] MEDS: Magnesium Sulfate 4 GM Ivpb 4 GM/50 ML BAG IV (10:19)
--- NOTE | 2024-09-02 11:26 | XR_ITS ---
Examination: CT abdomen with intravenous contrast CT pelvis with intravenous contrast 2-D coronal reconstructions 2-D sagittal reconstructions Date and time of exam:September 02, 2024, 1237 hrs., Comparison August 27, 2024 Indications: Intermittent abdominal pain beginning 3 days ago. CTDI: vol (mGy) 5.71. DLP: (mGycm) 339. Technique: Multiple axial sections of the abdomen and pelvis have been obtained. 64 slice high-resolution scanner used. 3 mm axial sections have been obtained, post intravenous injection 60 cc [id number]. 2-D sagittal, coronal reconstructions obtained. Low dose protocols were performed. One or more of the following dose reduction techniques were used; automated exposure control, adjustment of the mA and/or KV according to patient size, use of iterative reconstruction technique. Findings: Liver is irregular in contour, no focal liver or splenic lesions Tiny gallstone No pancreatic edema No hydronephrosis or renal calculi Aorta normal size Abundant stool throughout the entire colon No pericecal inflammatory change No diverticulitis Mildly distended urinary bladder Normal prostate Impression: Primary hepatocellular disease versus cirrhosis Cholelithiasis Negative for pancreatitis Normal appendix Abundant stool throughout the entire colon
[2024-09-02] MEDS: KETOROLAC INJ 30 MG/ML VIAL IVP (13:17)
[2024-09-02] MEDS: HYDROmorphone INJ 2 MG/ML VIAL 1.5 MG IVP ×2 (15:35→19:40)
[2024-09-02] MEDS: LACTULOSE SYRUP 20 GM/30 ML UDC PO ×2 (15:36→21:44)
[2024-09-02] MEDS: ACETAMINOPHEN 325 MG TABLET PO (18:27)
--- NOTE | 2024-09-02 19:26 | PD.IMPROG ---
Documentation for date of: 09/02/24 Subjective Subjective Interval history: Patient evaluated Hemoglobin adequate 11.3 and 34.0 No signs of any active bleeding Exam Vital Signs Temp Pulse Resp BP Pulse Ox O2 Del Method O2 Flow Rate 97.1 F 74 18 142/77 H 96 Room Air 1 09/02/24 16:00 09/02/24 16:00 09/02/24 16:00 09/02/24 16:00 09/02/24 16:00 09/02/24 16:00 09/01/24 16:00 Objective Labs 09/02/24 05:50 09/02/24 05:50 Labs: Laboratory Results - last 24 hr 09/02/24 05:50 WBC 3.5 L RBC 3.27 L Hgb 11.3 L Hct 34.0 L MCV 104 H MCH 34.6 MCHC 33.2 RDW Std Deviation 50.6 H Plt Count 239 D Neut % (Auto) 50 Lymph % (Auto) 31 [place] % (Auto) 14 H Eos % (Auto) 4 Baso % (Auto) 1 Neut # (Auto) 1.7 L Lymph # (Auto) 1.1 [place] # (Auto) 0.5 Eos # (Auto) 0.2 Baso # (Auto) 0.0 Immature Gran # (Auto) 0.01 H Absolute Nucleated RBC 0.00 Immature Gran % 0 Nucleated RBC % 0 Sodium 140 Potassium 4.0 Chloride 103 Carbon Dioxide 27.9 Anion Gap 9 BUN 6 L Creatinine 1.0 Estim Creat Clear Calc 99.8 eGFR > 60 BUN/Creatinine Ratio 6 L Glucose 99 Calculated Osmolality 277 Calcium 9.0 Corrected Calcium 9.0 Phosphorus 4.8 Magnesium 1.2 L Total Bilirubin 0.4 AST 53 H ALT 29 Alkaline Phosphatase 157 H Total Protein 6.6 Albumin 4.1 Globulin 2.5 Albumin/Globulin Ratio 1.6 Impressions Impression: 1+ esophageal varices not large enough for band ligation Gastritis Gastric motility disorder Continue current management Assessment & Plan A&P Narrative # Altered mental status due to acute alcohol withdrawal # Acute GI bleed most likely upper either due to mucosal oozing of blood due to chronic liver disease or esophageal variceal bleeding Plan Aggressive treatment for alcohol withdrawal Serial CBC IV Protonix 80 mg IV push every 12 Octreotide 50 mics IV push and then 50 mcg/h infusion N.p.o. Consent will be obtained from the family members for fiberoptic esophagogastroduodenoscopy with possible biopsy possible therapeutic intervention under intravenous moderate sedation Prognosis guarded Thank you very much for the opportunity to participate in the care of this patient Time Spent With Patient Time: Total time spent is greater than 50% in coordination of care (as documented) at patient's floor/unit and/or counseling patient:
[2024-09-02] MEDS: MELATONIN 3 MG TABLET 6 MG PO (20:25)
[2024-09-02 22:20] LABS: Hepatitis A Antibody IgM Non Reactive (Non React); Hepatitis B Core Antibody IgM Non Reactive (Non React); Hepatitis B Surface Antigen Non Reactive (Non React); Hepatitis C Antibody Non Reactive (Non React)
[2024-09-03] VITALS (10 sets, daily range): BP systolic 110–147; BP diastolic 66–89; PULSE 48–97; RESP 13–18; TEMP 36.2–36.8; O2SAT 95–100; BMI 21.9
--- NOTE | 2024-09-03 | XR_ITS ---
MRI abdomen, without contrast. MRCP Date and time of exam: September 03, 2024 1106 hours Comparison May 08, 2024 INDICATIONS: Right upper abdominal pain beginning one week ago, CT examination September 02, 2024 cholelithiasis Technique: Multiple axial and coronal images of the abdomen have been obtained with the Siemens 1.5T MRI scanner. Images obtained included T1 weighted transverse images, T2-weighted transverse images, T2-weighted transverse images fat-suppressed, T2 weighted haste fat suppressed transverse images, T1 weighted images, in and out of phase images, T2-weighted coronal images, breath hold, T2 weighted haze coronal images as well as T2 weighted coronal thick slab images, MRCP. Findings: No focal liver lesions or intrahepatic biliary tract dilatation Liver is not enlarged Normal appearing spleen No gallstones identified Normal gallbladder wall Normal common hepatic common bile duct no stones Negative for pancreatitis No hydronephrosis No ascites Aorta normal size IMPRESSION: No intra or extra hepatic biliary tract dilatation Normal gallbladder No common hepatic common bile duct stones
[2024-09-03] MEDS: METOCLOPRAMIDE INJ 5 MG/ML VIAL 2 ML IVP ×5 (00:24→23:36)
[2024-09-03] MEDS: metroNIDAZOLE/NS 500 MG IVPB 500 MG/100 ML BAG 200 MG IV ×3 (05:24→21:13)
[2024-09-03] MEDS: LACTULOSE SYRUP 20 GM/30 ML UDC PO ×3 (05:24→21:13)
[2024-09-03] MEDS: HYDROmorphone INJ 2 MG/ML VIAL 1.5 MG IVP ×2 (05:41→09:44)
[2024-09-03 06:17] LABS: Basophils # (Auto) 0.0 Thou/mm3 (0.0-0.2); Basophils % (Auto) 1 % (0-2.5); Eosinophils # (Auto) 0.1 Thou/mm3 (0.0-0.5); Eosinophils % (Auto) 4 % (0-10); Hematocrit 34.0 % (41.0-53.0); Hemoglobin 11.3 g/dL (13.5-16.0); Immature Granulocytes Auto 0.01 Thou/mm3 (0.00-0.00); Lymphocytes # (Auto) 0.6 Thou/mm3 (1.0-4.8); Lymphocytes % (Auto) 20 % (10-50); Mean Corpuscular HGB Conc 33.2 g/dl (31.0-37.0); Mean Corpuscular Hemoglobin 34.6 pg (25.0-35.0); Mean Corpuscular Volume 104 fL (80-100); Monocytes # (Auto) 0.4 Thou/mm3 (0.0-0.8); Monocytes % (Auto) 14 % (0-12); Neutrophils # (Auto) 1.7 Thou/mm3 (1.8-7.7); Neutrophils % (Auto) 62 % (37-80); Nucleated Red Blood Cell # 0.00 Thou/mm3 (0.00-0.00); Nucleated Red Blood Cell % 0 /100 WBC (0); Platelet Count 229 Thou/mm3 (140-440); RDW Standard Deviation 50.6 fL (35.1-43.9); Red Blood Count 3.27 Miln/mm3 (4.50-5.90)
[2024-09-03 06:28] LABS: Alanine Aminotransferase 39 U/L (10-49); Albumin, Serum 4.3 gm/dL (3.5-5.0); Albumin/Globulin Ratio 1.7 (1.2-2.2); Alkaline Phosphatase 176 U/L (46-116); Anion Gap 10 (7-16); Aspartate Amino Transferase 78 U/L (0-34); BUN/Creatinine Ratio 5 Ratio (12-20); Bilirubin,Total 0.3 mg/dL (0.3-1.2); Blood Urea Nitrogen 5 mg/dL (9-23); Calcium 9.8 mg/dL (8.3-10.6); Calcium (Corrected) 9.8 mg/dL (8.5-10.1); Carbon Dioxide 29.9 mMol/L (20.0-31.0); Chloride 103 mMol/L (98-107); Creatinine (Component) 1.0 mg/dL (0.6-1.3); Estimated Creatinine Clearance 99.8 mL/min (>60); Globulin 2.5 gm/dL (2.3-3.5); Glucose 98 mg/dL (74-106); Magnesium 1.6 mg/dL (1.6-2.6); Osmolality,Calculated 282 (275-295); Phosphorous 4.4 mg/dL (2.4-5.1); Potassium 4.4 mMol/L (3.4-5.1); Sodium 143 mMol/L (136-145); Total Protein 6.8 gm/dL (5.7-8.2); eGFR > 60 See Note
[2024-09-03] MEDS: KETOROLAC INJ 30 MG/ML VIAL IVP ×3 (06:35→19:37)
[2024-09-03 06:39] LABS: White Blood Count 2.8 Thou/mm3 (3.8-10.6)
[2024-09-03] MEDS: HYDROcodone/APAP 5/325 TABLET 1 TAB PO ×2 (07:23→18:47)
--- NOTE | 2024-09-03 07:55 | PC.NURSE ---
Called Dr. Purdy of critical lab WBC 2.8.
--- NOTE | 2024-09-03 08:16 | PC.NURSE ---
Called Dr. Purdy regarding patient requesting for pain medication, next due Daleaudid at 0941, patient then requesting medication for anxiety. Per Dr. Purdy no new orders patient to get pain medication at next due time.
[2024-09-03] MEDS: cefTRIAXone/D5w 1gm IV premix 1 GM/50 ML BAG IV (08:18)
[2024-09-03] MEDS: THIAMINE INJ 100 MG/ML VIAL 2 ML IVP ×2 (08:18→20:07)
[2024-09-03] MEDS: ONDANSETRON INJ 2 MG/ML INJ 2 ML 4 MG IVP (09:45)
[2024-09-03] MEDS: HYDROmorphone INJ 2 MG/ML VIAL 0.25 MG IVP (11:09)
--- NOTE | 2024-09-03 11:54 | ESPR_ITS ---
<Statement entered by Devika Meyers MD - 09/03/24 13:34> I have reviewed the note and agree with the resident's assessment & plan with exceptions as below. I have personally reviewed labs, imaging, home meds/prior records, examined the patient, formulated and discussed management plan with the IM team. Pt examined at bedside today. Pt reports he is doing well and is still having some abdominal pain. He reports that he was able to have a bowel movement this morning, however it was small. Will continue with Lactulose 20 gm TID at this time and will follow up with patient's MRCP today as there was concern for cholecysitits and recommended after HIDA was negative. Will decrease patient's pain medicines from Dilaudid 1.5 mg Q4H PRN to 1.0 mg Q4H PRN. Will consult surgery if needed after MRCP. Last CIWA for patient was 0. Repeat hematology, and chemistry in AM and continue w/ CIWA protocol. Devika Meyers, PGY-2 Internal Medicine Documentation for date of: 09/03/24 Subjective Subjective Interval history: Patient seen at bedside. No acute overnight events patient has same pain today of abdomen. Pain does not change with position or with eating. Pain settles with Dilaudid which helps for about an hour before returning. Last proper bowel movement was 3 days ago, little bit today, passing gas. Exam Vital Signs Temp Pulse Resp BP Pulse Ox O2 Del Method O2 Flow Rate 97.4 F 48 L 18 147/81 H 98 Room Air 1 09/03/24 08:00 09/03/24 10:01 09/03/24 08:00 09/03/24 08:00 09/03/24 08:00 09/03/24 08:00 09/01/24 16:00 Narrative Exam Gen: Well-developed and well-nourished male in moderate distress. HEENT: NCAT, PERRLA, EOMI, MMM, anicteric conjunctivae. CVS: normal S1 and S2. RRR. No M/R/G. Resp: CTA B/L. No rhonchi, rales, crackles or wheezing. Abd: Non-distended. Voluntary + Involuntary guarding present. Abdo feels firm. Tenderness with minimal palpation. BS+ in all 4 quadrants. MSK: Good ROM in BUE & BLE. No edema or rash. Neuro: CN II-XII grossly intact. Strength 5/5 in BUE & BLE. Alert and oriented x3. Latest CIWA 0. Objective Labs 09/04/24 04:34 09/04/24 04:34 Labs: Laboratory Results - last 24 hr 09/01/24 09/03/24 04:25 05:33 WBC 2.8 L RBC 3.27 L Hgb 11.3 L Hct 34.0 L MCV 104 H MCH 34.6 MCHC 33.2 RDW Std Deviation 50.6 H Plt Count 229 Neut % (Auto) 62 Lymph % (Auto) 20 [place] % (Auto) 14 H Eos % (Auto) 4 Baso % (Auto) 1 Neut # (Auto) 1.7 L Lymph # (Auto) 0.[address] [place] # (Auto) 0.4 Eos # (Auto) 0.1 Baso # (Auto) 0.0 Immature Gran # (Auto) 0.01 H Absolute Nucleated RBC 0.00 Immature Gran % 0 Nucleated RBC % 0 Sodium 143 Potassium 4.4 Chloride 103 Carbon Dioxide 29.9 Anion Gap 10 BUN 5 L Creatinine 1.0 Estim Creat Clear Calc 99.8 eGFR > 60 BUN/Creatinine Ratio 5 L Glucose 98 Calculated Osmolality 282 Calcium 9.8 Corrected Calcium 9.8 Phosphorus 4.4 Magnesium 1.6 Total Bilirubin 0.3 AST 78 H ALT 39 Alkaline Phosphatase 176 H Total Protein 6.8 Albumin 4.3 Globulin 2.5 Albumin/Globulin Ratio 1.7 Hepatitis A IgM Ab Non Reactive Hep Bs Antigen Non Reactive Hep B Core IgM Ab Non Reactive Hepatitis C Antibody Non Reactive Quality Measures Quality Measures VTE prophylaxis Assessment & Plan Assessment Current Active Medications: Generic Name Dose Route Start Last Admin Trade Name Freq PRN Reason Stop Dose Admin Acetaminophen 325 mg 09/01/24 08:25 09/02/24 18:27 Acetaminophen 325 Mg Tablet PO 10/01/24 08:24 325 mg Q6HR PRN Administration Fever >100.4 OR pain 1-3 Hydrocodone Bitart/Acetaminophen 1 tab 08/29/24 19:12 09/03/24 07:23 Hydrocodone/Apap 5/325 Tablet PO 09/03/24 19:11 1 tab Q6HR PRN Administration Pain 4-6 Al Hydrox/Mg Hydrox/Simethicone 30 ml 08/30/24 11:48 08/30/24 23:35 Mg Hyd/Al Hyd/Julian (Maalox Reg) Susp 30 Ml Udc PO 09/29/24 11:47 30 ml Q4HR PRN Administration UPSET STOMACH/INDIGESTION Bisacodyl 5 mg 09/01/24 09:30 09/03/24 10:37 Bisacodyl 5 Mg Tabec PO 10/01/24 09:29 Not Given QDAY APOORVA Protocol Cholestyramine Resin 2 pkt 08/30/24 21:00 09/03/24 10:37 Cholestyramine/Sucrose 1 Pkt Ea PO 09/29/24 20:59 Not Given BID APOORVA Protocol Hydromorphone HCl 1 mg 09/03/24 10:48 Hydromorphone Inj 2 Mg/Ml Vial IVP 09/07/24 08:24 Q4HR PRN PAIN 7-10 Ceftriaxone Sodium/Dextrose 1 gm in 50 mls @ 100 mls/hr 08/28/24 21:00 09/03/24 08:18 Rocephin/D5w 1gm Iv Premix IV 09/04/24 20:59 100 mls/hr QDAY APOORVA Administration Metronidazole 500 mg in 100 mls @ 200 mls/hr 08/31/24 08:12 09/03/24 05:24 Flagyl 500 Mg Iv IV 09/07/24 08:11 200 mls/hr Q8HR APOORVA Administration Ketorolac Tromethamine 30 mg 09/02/24 11:26 09/03/24 06:35 Ketorolac Inj 30 Mg/Ml Vial IVP 09/07/24 11:25 30 mg Q6HR PRN Administration Pain breakthru Lactulose 20 gm 09/02/24 14:30 09/03/24 05:24 Lactulose Syrup 20 Gm/30 Ml Udc PO 10/02/24 14:29 20 gm TID APOORVA Administration Protocol Melatonin 6 mg 09/01/24 21:00 09/02/24 20:25 Melatonin 3 Mg Tablet PO 10/01/24 20:59 6 mg HS APOORVA Administration Metoclopramide HCl 5 mg 08/30/24 00:00 09/03/24 11:10 Metoclopramide Inj 5 Mg/Ml Vial 2 Ml IVP 09/29/24 00:00 5 mg Q6HR APOORVA Administration Protocol Ondansetron HCl 4 mg 09/02/24 11:26 09/03/24 09:45 Ondansetron Inj 2 Mg/Ml Inj 2 Ml IVP 10/02/24 11:25 4 mg Q6HR PRN Administration NAUSEA OR VOMITING Protocol Pantoprazole Sodium 40 mg 08/30/24 09:00 09/03/24 08:17 Pantoprazole Inj 40 Mg Vial IVP 09/29/24 08:59 40 mg BID APOORVA Administration Polyethylene Glycol 17 gm 09/01/24 09:30 09/03/24 10:37 Polyethylene Glycol 17 Gm Packet PO 10/01/24 09:29 Not Given QDAY APOORVA Thiamine HCl 100 mg 08/28/24 09:00 09/03/24 08:18 Thiamine Inj 100 Mg/Ml Vial 2 Ml IVP 09/27/24 08:59 100 mg BID APOORVA Administration Trazodone HCl 50 mg 09/01/24 21:00 09/02/24 20:25 Trazodone Hcl 50 Mg Tablet PO 10/01/24 20:59 50 mg HS APOORVA Administration Plan Assessment: 29 years old male with past medical history of alcohol use disorder, 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, gastritis presented to the ED from [facility] due to alcohol withdrawal and was admitted to ICU for further management. N ow downgraded to medical floor to manage ongoing issues. #Alcohol-related liver disease #Cirrhosis with esophageal varices. #Upper GI bleeding. #Acute acalculous cholecystitis HIDA scan 08/31/2024: Showed gallbladder working, no cystic duct obstruction, recommended CT abdomen: Abundant stool throughout the entire colon, no pancreatitis MRCP: normal gallblader, no intra or extra hepatic tract dilatation Plan: ? Dr. Tello following, see rec - Continuing Rocephin and Flagyl IV - Protonix to 40 mg IV twice daily - Continue Cholestyramine to 2 pkt BID - Reglan 5mg IV push - 2 g sodium diet - Ordered HFE gene mutation testing, follow-up out-patient #Constipation - Added Fleet enema MS - Lactulose 20 mg TID - Dulcolax 5mg daily - MiraLax 17g daily #Pain management Patient required Dilaudid approximately 6.5 mg IV over the past 24 hours ? Decreased Dilaudid to 1.0 mg IV q4h PRN ? Continue Toradol 30mg IV q6h PRN #Alcohol dependence with withdrawal?CIWA - currently 0 #Alcohol use disorder Patient's CIWA score was 35 after 15 mg of Valium in the ED. He was given loading dose of phenobarbital 260 mg IV. Patient has history of multiple admissions to the facility for alcohol withdrawal, was seen outpatient at [facility] for severe alcohol withdrawal, presented to ED for evaluation. Patient was prescribed Librium outpatient for management of alcohol withdrawal, patient denies taking any medication, reports that it got lost. Plan: - CIWA monitoring with Valium per [facility] protocol - Chlordiazepoxide 50mg twice daily -> taper in a.m. - IV thiamine twice daily, IV folate daily need to transition to p.o. #Insomnia Slept well after increase in Melatonin and addition of Trazadone Plan: - Continue Melatonin 6mg qHS - Continue Trazadone 50mg qHS #Acute blood loss anemia. Patient presented complaining of black tarry stools, labs showed hemoglobin 11.1, RBCs 3.24, hematocrit 31.4%. 10 days ago his hemoglobin was 13.5. Plan: - Transfuse if hemoglobin < 7 #Sinus asymptomatic bradycardia Patient has asymptomatic sinus bradycardia, repeat EKG today shows sinus bradycardia as well. Patient is significantly bradycardic when sleeping. No history of any cardiac disease, has never seen a roller picker outpatient Plan: - Consider cardiac workup outpatient #Hypomagnesemia, resolved #Health Maintenance DVT prophylaxis: SCDs GI prophylaxis: Protonix Diet: PUD diet CODE STATUS: Full code Case discussed with my attending Dr. Allen, and senior resident, Dr. Luigi Purdy MD PGY-1 Attending Provider Attestation/Addendum 29-year-old male patient with alcohol use disorder admitted for abdominal pain. he has cirrhosis of the liver, GI bleed, possible acalculous cholecystitis. The patient is being followed by GI Dr. Tello. MRCP pending. He is on IV antibiotic IV Rocephin. The patient has bradycardia but asymptomatic he has anemia continue to monitor hemoglobin and hematocrit. Patient is requiring IV Dilaudid for pain control. Discussed with housestaff.
--- NOTE | 2024-09-03 14:13 | PC.NURSE ---
Patient refusing enema at this time wants to wait until later.
--- NOTE | 2024-09-03 16:18 | PC.SS ---
rounding note: Patient still experiencing abdominal pain. Followup with MRCP. D/c pending for home.
[2024-09-03] MEDS: HYDROmorphone INJ 2 MG/ML VIAL 1 MG IVP ×2 (17:33→21:33)
[2024-09-03] MEDS: MELATONIN 3 MG TABLET 6 MG PO (20:06)
[2024-09-03] MEDS: CHOLESTYRAMINE/SUCROSE 1 PKT EA 2 PKT PO (20:07)
--- NOTE | 2024-09-03 20:13 | ESPR_ITS ---
Documentation for date of: 09/03/24 Subjective Subjective Interval history: Hemoglobin hematocrit 11.3 and 34.0 No signs of any active bleeding Exam Vital Signs Temp Pulse Resp BP Pulse Ox O2 Del Method O2 Flow Rate 97.3 F 60 18 118/89 H 97 Room Air 1 09/03/24 16:00 09/03/24 16:56 09/03/24 16:00 09/03/24 16:00 09/03/24 16:00 09/03/24 16:00 09/01/24 16:00 Objective Labs 09/03/24 05:33 09/03/24 05:33 Labs: Laboratory Results - last 24 hr 09/01/24 09/03/24 04:25 05:33 WBC 2.8 L RBC 3.27 L Hgb 11.3 L Hct 34.0 L MCV 104 H MCH 34.6 MCHC 33.2 RDW Std Deviation 50.6 H Plt Count 229 Neut % (Auto) 62 Lymph % (Auto) 20 [place] % (Auto) 14 H Eos % (Auto) 4 Baso % (Auto) 1 Neut # (Auto) 1.7 L Lymph # (Auto) 0.6 L [place] # (Auto) 0.4 Eos # (Auto) 0.1 Baso # (Auto) 0.0 Immature Gran # (Auto) 0.01 H Absolute Nucleated RBC 0.00 Immature Gran % 0 Nucleated RBC % 0 Sodium 143 Potassium 4.4 Chloride 103 Carbon Dioxide 29.9 Anion Gap 10 BUN 5 L Creatinine 1.0 Estim Creat Clear Calc 99.8 eGFR > 60 BUN/Creatinine Ratio 5 L Glucose 98 Calculated Osmolality 282 Calcium 9.8 Corrected Calcium 9.8 Phosphorus 4.4 Magnesium 1.6 Total Bilirubin 0.3 AST 78 H ALT 39 Alkaline Phosphatase 176 H Total Protein 6.8 Albumin 4.3 Globulin 2.5 Albumin/Globulin Ratio 1.7 Hepatitis A IgM Ab Non Reactive Hep Bs Antigen Non Reactive Hep B Core IgM Ab Non Reactive Hepatitis C Antibody Non Reactive Impressions Impression: 1 per esophageal varices Gastric motility disorder Hemorrhagic gastritis Continue current management and follow CBC Assessment & Plan A&P Narrative # Altered mental status due to acute alcohol withdrawal # Acute GI bleed most likely upper either due to mucosal oozing of blood due to chronic liver disease or esophageal variceal bleeding Plan Aggressive treatment for alcohol withdrawal Serial CBC IV Protonix 80 mg IV push every 12 Octreotide 50 mics IV push and then 50 mcg/h infusion N.p.o. Consent will be obtained from the family members for fiberoptic esophagogastroduodenoscopy with possible biopsy possible therapeutic intervention under intravenous moderate sedation Prognosis guarded Thank you very much for the opportunity to participate in the care of this patient Time Spent With Patient Time: Total time spent is greater than 50% in coordination of care (as documented) at patient's floor/unit and/or counseling patient:
[2024-09-03] MEDS: ACETAMINOPHEN 325 MG TABLET PO (23:36)
[2024-09-04] VITALS (10 sets, daily range): BP systolic 107–120; BP diastolic 56–73; PULSE 52–88; RESP 16–18; TEMP 36.2–36.7; O2SAT 63–98; BMI 21.9
[2024-09-04] MEDS: HYDROmorphone INJ 2 MG/ML VIAL 1 MG IVP (03:50)
[2024-09-04] MEDS: METOCLOPRAMIDE INJ 5 MG/ML VIAL 2 ML IVP ×4 (05:10→23:33)
[2024-09-04] MEDS: metroNIDAZOLE/NS 500 MG IVPB 500 MG/100 ML BAG 200 MG IV ×3 (05:13→21:05)
[2024-09-04] MEDS: KETOROLAC INJ 30 MG/ML VIAL IVP ×4 (05:13→23:29)
[2024-09-04] MEDS: ACETAMINOPHEN 325 MG TABLET PO ×2 (05:22→16:03)
[2024-09-04 05:57] LABS: Basophils # (Auto) 0.0 Thou/mm3 (0.0-0.2); Basophils % (Auto) 1 % (0-2.5); Eosinophils # (Auto) 0.2 Thou/mm3 (0.0-0.5); Eosinophils % (Auto) 6 % (0-10); Hematocrit 31.3 % (41.0-53.0); Hemoglobin 10.3 g/dL (13.5-16.0); Immature Granulocytes Auto 0.01 Thou/mm3 (0.00-0.00); Lymphocytes # (Auto) 0.9 Thou/mm3 (1.0-4.8); Lymphocytes % (Auto) 21 % (10-50); Mean Corpuscular HGB Conc 32.9 g/dl (31.0-37.0); Mean Corpuscular Hemoglobin 34.8 pg (25.0-35.0); Mean Corpuscular Volume 106 fL (80-100); Monocytes # (Auto) 0.8 Thou/mm3 (0.0-0.8); Monocytes % (Auto) 19 % (0-12); Neutrophils # (Auto) 2.2 Thou/mm3 (1.8-7.7); Neutrophils % (Auto) 53 % (37-80); Nucleated Red Blood Cell # 0.00 Thou/mm3 (0.00-0.00); Nucleated Red Blood Cell % 0 /100 WBC (0); Platelet Count 213 Thou/mm3 (140-440); RDW Standard Deviation 52.3 fL (35.1-43.9); Red Blood Count 2.96 Miln/mm3 (4.50-5.90); White Blood Count 4.1 Thou/mm3 (3.8-10.6)
[2024-09-04 06:12] LABS: Alanine Aminotransferase 37 U/L (10-49); Albumin, Serum 3.6 gm/dL (3.5-5.0); Albumin/Globulin Ratio 1.5 (1.2-2.2); Alkaline Phosphatase 164 U/L (46-116); Anion Gap 10 (7-16); Aspartate Amino Transferase 63 U/L (0-34); BUN/Creatinine Ratio 6 Ratio (12-20); Bilirubin,Total 0.3 mg/dL (0.3-1.2); Blood Urea Nitrogen < 5 mg/dL (9-23); Calcium 8.8 mg/dL (8.3-10.6); Calcium (Corrected) 9.1 mg/dL (8.5-10.1); Carbon Dioxide 25.3 mMol/L (20.0-31.0); Chloride 106 mMol/L (98-107); Creatinine (Component) 0.9 mg/dL (0.6-1.3); Estimated Creatinine Clearance 110.9 mL/min (>60); Globulin 2.4 gm/dL (2.3-3.5); Glucose 94 mg/dL (74-106); Magnesium 1.4 mg/dL (1.6-2.6); Osmolality,Calculated 278 (275-295); Phosphorous 5.1 mg/dL (2.4-5.1); Potassium 4.4 mMol/L (3.4-5.1); Sodium 141 mMol/L (136-145); Total Protein 6.0 gm/dL (5.7-8.2); eGFR > 60 See Note
[2024-09-04] MEDS: PANTOPRAZOLE 40 MG TABLET PO ×2 (08:21→20:06)
[2024-09-04] MEDS: THIAMINE 100 MG TABLET PO ×2 (08:21→20:05)
[2024-09-04] MEDS: CHOLESTYRAMINE/SUCROSE 1 PKT EA 2 PKT PO ×2 (08:21→20:08)
[2024-09-04] MEDS: cefTRIAXone/D5w 1gm IV premix 1 GM/50 ML BAG IV (08:22)
--- NOTE | 2024-09-04 09:01 | XR_ITS ---
Examination: Abdomen AP single view Technique: AP portable supine abdomen, single view Exam date and time: September 04, 2024, 0909 hours INDICATIONS: Abdominal pain and tenderness today. FINDINGS: Mildly air distended stomach Nonobstructive bowel gas pattern. No free air IMPRESSION: Mildly air distended stomach
[2024-09-04] MEDS: MORPHINE SULF INJ 10 MG/ML VIAL IVP ×2 (09:22→16:54)
[2024-09-04] MEDS: Magnesium Sulfate 4 GM Ivpb 4 GM/50 ML BAG IV (09:23)
--- NOTE | 2024-09-04 13:37 | ESPR_ITS ---
Documentation for date of: 09/04/24 Subjective Subjective Interval history: Pt examined at bedside today. No acute overnight events. Pt reports he is still having abdominal pain. He is requesting dilaudid at this time. He reports that he has had about 3 bowel movements as well. He is requesting additional pain medicine at this time. He said he vomited recently as well. Exam Vital Signs Temp Pulse Resp BP Pulse Ox O2 Del Method O2 Flow Rate 97.6 F 61 18 120/72 96 Room Air 1 09/04/24 12:00 09/04/24 12:00 09/04/24 12:00 09/04/24 12:00 09/04/24 12:00 09/04/24 12:00 09/01/24 16:00 Narrative Exam Gen: Well-developed and well-nourished male in moderate distress. HEENT: NCAT, PERRLA, EOMI, MMM, anicteric conjunctivae. CVS: normal S1 and S2. RRR. No M/R/G. Resp: CTA B/L. No rhonchi, rales, crackles or wheezing. Abd: Some tenderness to palpitation in abdomen, non-distended. BS+ in all 4 quadrants. MSK: Good ROM in BUE & BLE. No edema or rash. Neuro: CN II-XII grossly intact. Strength 5/5 in BUE & BLE. Alert and oriented x3. Objective Labs 09/05/24 04:02 09/05/24 04:02 Labs: Laboratory Results - last 24 hr 09/04/24 04:34 WBC 4.1 D RBC 2.96 L Hgb 10.3 L Hct 31.3 L MCV 106 H MCH 34.8 MCHC 32.9 RDW Std Deviation 52.3 H Plt Count 213 Neut % (Auto) 53 Lymph % (Auto) 21 [place] % (Auto) 19 H Eos % (Auto) 6 Baso % (Auto) 1 Neut # (Auto) 2.2 Lymph # (Auto) 0.9 L [place] # (Auto) 0.8 Eos # (Auto) 0.2 Baso # (Auto) 0.0 Immature Gran # (Auto) 0.01 H Absolute Nucleated RBC 0.00 Immature Gran % 0 Nucleated RBC % 0 Sodium 141 Potassium 4.4 Chloride 106 Carbon Dioxide 25.3 Anion Gap 10 BUN < 5 L Creatinine 0.9 Estim Creat Clear Calc 110.9 eGFR > 60 BUN/Creatinine Ratio 6 L Glucose 94 Calculated Osmolality 278 Calcium 8.8 Corrected Calcium 9.1 Phosphorus 5.1 Magnesium 1.4 L Total Bilirubin 0.3 AST 63 H ALT 37 Alkaline Phosphatase 164 H Total Protein 6.0 Albumin 3.6 D Globulin 2.4 Albumin/Globulin Ratio 1.5 Quality Measures Quality Measures VTE prophylaxis Assessment & Plan Assessment Current Active Medications: Generic Name Dose Route Start Last Admin Trade Name Freq PRN Reason Stop Dose Admin Acetaminophen 325 mg 09/01/24 08:25 09/04/24 05:22 Acetaminophen 325 Mg Tablet PO 10/01/24 08:24 325 mg Q6HR PRN Administration Fever >100.4 OR pain 1-3 Hydrocodone Bitart/Acetaminophen 1 tab 09/04/24 09:05 Hydrocodone/Apap 5/325 Tablet PO 09/09/24 09:01 Q4HR PRN PAIN SCALE 4-10(Mod-Sev Al Hydrox/Mg Hydrox/Simethicone 30 ml 08/30/24 11:48 08/30/24 23:35 Mg Hyd/Al Hyd/Julian (Maalox Reg) Susp 30 Ml Udc PO 09/29/24 11:47 30 ml Q4HR PRN Administration UPSET STOMACH/INDIGESTION Bisacodyl 5 mg 09/01/24 09:30 09/04/24 08:22 Bisacodyl 5 Mg Tabec PO 10/01/24 09:29 Not Given QDAY APOORVA Protocol Cholestyramine Resin 2 pkt 08/30/24 21:00 09/04/24 08:21 Cholestyramine/Sucrose 1 Pkt Ea PO 09/29/24 20:59 2 pkt BID APOORVA Administration Protocol Ceftriaxone Sodium/Dextrose 1 gm in 50 mls @ 100 mls/hr 08/28/24 21:00 09/04/24 08:22 Rocephin/D5w 1gm Iv Premix IV 09/04/24 20:59 100 mls/hr QDAY APOORVA Administration Metronidazole 500 mg in 100 mls @ 200 mls/hr 08/31/24 08:12 09/04/24 05:13 Flagyl 500 Mg Iv IV 09/07/24 08:11 200 mls/hr Q8HR APOORVA Administration Ketorolac Tromethamine 30 mg 09/02/24 11:26 09/04/24 11:28 Ketorolac Inj 30 Mg/Ml Vial IVP 09/07/24 11:25 30 mg Q6HR PRN Administration Pain breakthru Lactulose 20 gm 09/02/24 14:30 09/04/24 05:08 Lactulose Syrup 20 Gm/30 Ml Udc PO 10/02/24 14:29 Not Given TID APOORVA Protocol Melatonin 6 mg 09/01/24 21:00 09/03/24 20:06 Melatonin 3 Mg Tablet PO 10/01/24 20:59 6 mg HS APOORVA Administration Metoclopramide HCl 5 mg 08/30/24 00:00 09/04/24 11:27 Metoclopramide Inj 5 Mg/Ml Vial 2 Ml IVP 09/29/24 00:00 5 mg Q6HR APOORVA Administration Protocol Ondansetron HCl 4 mg 09/02/24 11:26 09/03/24 09:45 Ondansetron Inj 2 Mg/Ml Inj 2 Ml IVP 10/02/24 11:25 4 mg Q6HR PRN Administration NAUSEA OR VOMITING Protocol Pantoprazole Sodium 40 mg 09/04/24 09:00 09/04/24 08:21 Pantoprazole 40 Mg Tablet PO 10/04/24 08:59 40 mg BID APOORVA Administration Protocol Polyethylene Glycol 17 gm 09/01/24 09:30 09/04/24 08:22 Polyethylene Glycol 17 Gm Packet PO 10/01/24 09:29 Not Given QDAY APOORVA Thiamine HCl 100 mg 09/04/24 09:00 09/04/24 08:21 Thiamine 100 Mg Tablet PO 10/04/24 08:59 100 mg BID APOORVA Administration Protocol Trazodone HCl 50 mg 09/01/24 21:00 09/03/24 20:06 Trazodone Hcl 50 Mg Tablet PO 10/01/24 20:59 50 mg HS APOORVA Administration Plan Assessment: 29 years old male with past medical history of alcohol use disorder, 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 N ow downgraded to medical floor to manage ongoing issues. #Alcohol-related liver disease #Cirrhosis with esophageal varices. #Upper GI bleeding. #Acute acalculous cholecystitis HIDA scan 08/31/2024: Showed gallbladder working, no cystic duct obstruction, recommended CT abdomen: Abundant stool throughout the entire colon, no pancreatitis MRCP: normal gallblader, no intra or extra hepatic tract dilatation Plan: ? Dr. Tello following, see rec - Continuing Rocephin and Flagyl IV - Protonix to 40 mg IV twice daily - Continue Cholestyramine to 2 pkt BID - Reglan 5mg IV push - 2 g sodium diet - Ordered HFE gene mutation testing, follow-up out-patient - Multimodal pain management including [place], Tylenol and Toradol 30 mg q6h IV #Constipation - Lactulose 20 mg TID - Dulcolax 5mg daily - MiraLax 17g daily #Alcohol dependence with withdrawal?CIWA - currently 0 #Alcohol use disorder Patient's CIWA score was 35 after 15 mg of Valium in the ED. He was given loading dose of phenobarbital 260 mg IV. Patient has history of multiple admissions to the facility for alcohol withdrawal, was seen outpatient at [facility] for severe alcohol withdrawal, presented to ED for evaluation. Patient was prescribed Librium outpatient for management of alcohol withdrawal, patient denies taking any medication, reports that it got lost. Plan: - CIWA monitoring with Valium per CIWA protocol - Chlordiazepoxide 50mg twice daily -> taper in a.m. - IV thiamine twice daily, IV folate daily need to transition to p.o. #Insomnia Slept well after increase in Melatonin and addition of Trazadone Plan: - Continue Melatonin 6mg qHS - Continue Trazadone 50mg qHS #Acute blood loss anemia. Patient presented complaining of black tarry stools, labs showed hemoglobin 11.1, RBCs 3.24, hematocrit 31.4%. 10 days ago his hemoglobin was 13.5. Plan: - Transfuse if hemoglobin < 7 #Sinus asymptomatic bradycardia Patient has asymptomatic sinus bradycardia, repeat EKG today shows sinus bradycardia as well. Patient is significantly bradycardic when sleeping. No history of any cardiac disease, has never seen a videogame tester outpatient Plan: - Consider cardiac workup outpatient #Hypomagnesemia, resolved #Health Maintenance Disposition: [facility] DVT prophylaxis: SCDs GI prophylaxis: Protonix Diet: PUD CODE STATUS: Full Patient seen and care discussed with my attending physician, Dr. Tiffany Meyers, PGY-2 Attending Provider Attestation/Addendum 29-year-old male patient with alcohol use disorder still complains of abdominal pain. Hepatobiliary imaging so far and workup not revealing any significant pathology. GI evaluation to continue. I discussed with and supervised the resident physician who took care of this patient. I agree with the assessment and plan as above.
[2024-09-04] MEDS: HYDROcodone/APAP 5/325 TABLET 1 TAB PO ×2 (14:01→19:34)
[2024-09-04] MEDS: MELATONIN 3 MG TABLET 6 MG PO (20:05)
--- NOTE | 2024-09-04 20:55 | ESPR_ITS ---
Documentation for date of: 09/04/24 Subjective Subjective Interval history: Patient evaluated complains of a lot of abdominal pain and discomfort primarily on examination in the midepigastric right upper quadrant area CT scan of the abdomen pelvis does show cholelithiasis but nuclear medicine HIDA scan shows visualization of the gallbladder MRCP is negative for CBD or common hepatic duct stone Abdominal x-ray reviewed shows a lot of stool burden Patient currently on [place] and Toradol Exam Vital Signs Temp Pulse Resp BP Pulse Ox O2 Del Method O2 Flow Rate 98.0 F 87 18 111/71 96 Room Air 1 09/04/24 20:00 09/04/24 20:00 09/04/24 20:00 09/04/24 20:00 09/04/24 20:00 09/04/24 20:00 09/01/24 16:00 Objective Labs 09/04/24 04:34 09/04/24 04:34 Labs: Laboratory Results - last 24 hr 09/04/24 04:34 WBC 4.1 D RBC 2.96 L Hgb 10.3 L Hct 31.3 L MCV 106 H MCH 34.8 MCHC 32.9 RDW Std Deviation 52.3 H Plt Count 213 Neut % (Auto) 53 Lymph % (Auto) 21 [place] % (Auto) 19 H Eos % (Auto) 6 Baso % (Auto) 1 Neut # (Auto) 2.2 Lymph # (Auto) 0.9 L [place] # (Auto) 0.8 Eos # (Auto) 0.2 Baso # (Auto) 0.0 Immature Gran # (Auto) 0.01 H Absolute Nucleated RBC 0.00 Immature Gran % 0 Nucleated RBC % 0 Sodium 141 Potassium 4.4 Chloride 106 Carbon Dioxide 25.3 Anion Gap 10 BUN < 5 L Creatinine 0.9 Estim Creat Clear Calc 110.9 eGFR > 60 BUN/Creatinine Ratio 6 L Glucose 94 Calculated Osmolality 278 Calcium 8.8 Corrected Calcium 9.1 Phosphorus 5.1 Magnesium 1.4 L Total Bilirubin 0.3 AST 63 H ALT 37 Alkaline Phosphatase 164 H Total Protein 6.0 Albumin 3.6 D Globulin 2.4 Albumin/Globulin Ratio 1.5 Impressions Impression: Severity of the abdominal pain is not fully explained by the imaging studies however Abdominal x-ray is quite telling with the stool burden which is also visualized on the CT scan of the abdomen pelvis Plan GoLyt[place] Clear liquid diet Assessment & Plan A&P Narrative # Altered mental status due to acute alcohol withdrawal # Acute GI bleed most likely upper either due to mucosal oozing of blood due to chronic liver disease or esophageal variceal bleeding Plan Aggressive treatment for alcohol withdrawal Serial CBC IV Protonix 80 mg IV push every 12 Octreotide 50 mics IV push and then 50 mcg/h infusion N.p.o. Consent will be obtained from the family members for fiberoptic esophagogastroduodenoscopy with possible biopsy possible therapeutic intervention under intravenous moderate sedation Prognosis guarded Thank you very much for the opportunity to participate in the care of this patient Time Spent With Patient Time: Total time spent is greater than 50% in coordination of care (as documented) at patient's floor/unit and/or counseling patient:
--- NOTE | 2024-09-04 20:58 | XR_ITS ---
Examination: Abdomen AP single view Technique: AP portable supine abdomen, single view Exam date and time: September 04, 2024 2143 hours INDICATIONS: Abdominal pain today. FINDINGS: Mildly air distended stomach Mild air and stool throughout the colon. No obstruction No abnormal free air IMPRESSION: Nonobstructive bowel gas pattern
--- NOTE | 2024-09-04 21:00 | PC.NURSE ---
DR. GATES SEEN AND EXAMINED PATIENT WITH NEW ORDERS CARRIED OUT.
[2024-09-04] MEDS: LACTULOSE SYRUP 20 GM/30 ML UDC PO (21:10)
[2024-09-04] MEDS: MORPHINE SULF INJ 10 MG/ML VIAL 2 MG IVP (21:52)
[2024-09-04 22:06] LABS: Lactate (Lactic Acid) 2.4 mMol/L (0.4-2.0)
[2024-09-04] MEDS: NA SU/NAHCO3/KC/PEG (Golytely) 4,000 ML BTL 4000 ML PO (22:36)
[2024-09-04] MEDS: RINGERS LACTATED 500 ML 500 ML 999 ML IV (23:59)
[2024-09-05] VITALS (19 sets, daily range): BP systolic 84–143; BP diastolic 46–97; PULSE 40–83; RESP 12–20; TEMP 36.1–36.7; O2SAT 93–100; BMI 21.6
[2024-09-05 00:47] LABS: Lactate (Lactic Acid) 0.9 mMol/L (0.4-2.0)
[2024-09-05 01:05] LABS: Reflex Lactate? Y
[2024-09-05] MEDS: HYDROcodone/APAP 5/325 TABLET 1 TAB PO ×4 (02:45→19:58)
[2024-09-05] MEDS: DIAZEPAM INJ 5 MG/ML VIAL 2 ML 2.5 MG IVP ×2 (03:24→12:02)
[2024-09-05 04:41] LABS: Basophils # (Auto) 0.0 Thou/mm3 (0.0-0.2); Basophils % (Auto) 1 % (0-2.5); Eosinophils # (Auto) 0.2 Thou/mm3 (0.0-0.5); Eosinophils % (Auto) 6 % (0-10); Hematocrit 32.6 % (41.0-53.0); Hemoglobin 10.7 g/dL (13.5-16.0); Immature Granulocytes Auto 0.01 Thou/mm3 (0.00-0.00); Lymphocytes # (Auto) 1.2 Thou/mm3 (1.0-4.8); Lymphocytes % (Auto) 38 % (10-50); Mean Corpuscular HGB Conc 32.8 g/dl (31.0-37.0); Mean Corpuscular Hemoglobin 34.4 pg (25.0-35.0); Mean Corpuscular Volume 105 fL (80-100); Monocytes # (Auto) 0.7 Thou/mm3 (0.0-0.8); Monocytes % (Auto) 22 % (0-12); Neutrophils # (Auto) 1.0 Thou/mm3 (1.8-7.7); Neutrophils % (Auto) 32 % (37-80); Nucleated Red Blood Cell # 0.00 Thou/mm3 (0.00-0.00); Nucleated Red Blood Cell % 0 /100 WBC (0); Platelet Count 184 Thou/mm3 (140-440); RDW Standard Deviation 51.5 fL (35.1-43.9); Red Blood Count 3.11 Miln/mm3 (4.50-5.90); White Blood Count 3.1 Thou/mm3 (3.8-10.6)
[2024-09-05 05:01] LABS: Alanine Aminotransferase 32 U/L (10-49); Albumin, Serum 3.8 gm/dL (3.5-5.0); Albumin/Globulin Ratio 1.5 (1.2-2.2); Alkaline Phosphatase 149 U/L (46-116); Anion Gap 10 (7-16); Aspartate Amino Transferase 46 U/L (0-34); BUN/Creatinine Ratio 6 Ratio (12-20); Bilirubin,Total 0.2 mg/dL (0.3-1.2); Blood Urea Nitrogen < 5 mg/dL (9-23); Calcium 8.9 mg/dL (8.3-10.6); Calcium (Corrected) 9.1 mg/dL (8.5-10.1); Carbon Dioxide 27.1 mMol/L (20.0-31.0); Chloride 106 mMol/L (98-107); Creatinine (Component) 0.9 mg/dL (0.6-1.3); Estimated Creatinine Clearance 110.9 mL/min (>60); Globulin 2.5 gm/dL (2.3-3.5); Glucose 98 mg/dL (74-106); Magnesium 1.4 mg/dL (1.6-2.6); Osmolality,Calculated 282 (275-295); Phosphorous 4.4 mg/dL (2.4-5.1); Potassium 4.0 mMol/L (3.4-5.1); Sodium 143 mMol/L (136-145); Total Protein 6.3 gm/dL (5.7-8.2); eGFR > 60 See Note
[2024-09-05] MEDS: MORPHINE SULF INJ 10 MG/ML VIAL IVP ×2 (05:29→10:48)
[2024-09-05] MEDS: METOCLOPRAMIDE INJ 5 MG/ML VIAL 2 ML IVP ×3 (05:30→17:39)
[2024-09-05] MEDS: LACTULOSE SYRUP 20 GM/30 ML UDC PO ×2 (05:30→13:23)
[2024-09-05] MEDS: metroNIDAZOLE/NS 500 MG IVPB 500 MG/100 ML BAG 200 MG IV ×2 (05:30→13:24)
[2024-09-05] MEDS: PANTOPRAZOLE 40 MG TABLET PO ×2 (08:17→20:00)
[2024-09-05] MEDS: THIAMINE 100 MG TABLET PO ×2 (08:17→20:00)
[2024-09-05] MEDS: KETOROLAC INJ 30 MG/ML VIAL IVP (08:17)
[2024-09-05] MEDS: FOLIC ACID 1 MG TABLET PO (08:17)
[2024-09-05] MEDS: CHOLESTYRAMINE/SUCROSE 1 PKT EA 2 PKT PO ×2 (08:18→20:03)
[2024-09-05] MEDS: POLYETHYLENE GLYCOL 17 GM PACKET PO (08:18)
[2024-09-05] MEDS: Magnesium Sulfate 4 GM Ivpb 4 GM/50 ML BAG IV (08:18)
--- NOTE | 2024-09-05 08:56 | PC.SS ---
rounding note: Patient pending colonoscopy
[2024-09-05] MEDS: NA SU/NAHCO3/KC/PEG (Golytely) 4,000 ML BTL 4000 ML PO ×2 (10:47→20:09)
[2024-09-05 11:23] LABS: Lipase 29 U/L (12-53)
[2024-09-05] MEDS: MORPHINE SULF INJ 10 MG/ML VIAL 2 MG IVP ×2 (13:23→17:39)
[2024-09-05] MEDS: MELATONIN 3 MG TABLET 6 MG PO (20:00)
--- NOTE | 2024-09-05 22:33 | PC.NURSE ---
pt in endo for colonoscopy.
--- NOTE | 2024-09-05 23:36 | PC.NURSE ---
Dr. lawrence was made aware that pt does no pee/produce urine anymore per pt's 's report. ordered a bladder scan.
[2024-09-06] VITALS: BP 140/86; PULSE 54; RESP 16; TEMP 36.6; O2SAT 94
[2024-09-06 04:00] VITALS: BP 138/94; PULSE 51; PULSE 53; RESP 16; TEMP 36.7; O2SAT 97
[2024-09-06] MEDS: MORPHINE SULF INJ 10 MG/ML VIAL 2 MG IVP (04:04)
--- NOTE | 2024-09-06 04:07 | PC.NURSE ---
pt's HR 35, DrDavid Pt asymptomatic, Dr. Beasley was made aware. No new orders for pt at this time.
[2024-09-06] MEDS: METOCLOPRAMIDE INJ 5 MG/ML VIAL 2 ML IVP ×2 (05:33→11:04)
[2024-09-06] MEDS: metroNIDAZOLE/NS 500 MG IVPB 500 MG/100 ML BAG 200 MG IV (05:34)
[2024-09-06] MEDS: HYDROcodone/APAP 5/325 TABLET 1 TAB PO (05:39)
[2024-09-06 06:00] VITALS: BMI 21.5
[2024-09-06] MEDS: ACETAMINOPHEN 325 MG TABLET PO (07:48)
[2024-09-06] MEDS: Magnesium Sulfate 4 GM Ivpb 4 GM/50 ML BAG IV (07:49)
[2024-09-06 08:00] VITALS: BP 110/66; PULSE 60; PULSE 68; RESP 17; TEMP 36.5; O2SAT 97
[2024-09-06] MEDS: PANTOPRAZOLE 40 MG TABLET PO (08:08)
[2024-09-06] MEDS: CHOLESTYRAMINE/SUCROSE 1 PKT EA 2 PKT PO (08:08)
[2024-09-06] MEDS: FOLIC ACID 1 MG TABLET PO (08:08)
[2024-09-06] MEDS: THIAMINE 100 MG TABLET PO (08:09)
[2024-09-06] MEDS: KETOROLAC INJ 30 MG/ML VIAL IVP (10:57)
[2024-09-06 12:00] VITALS: BP 110/88; PULSE 77; RESP 18; TEMP 36.6; O2SAT 94
--- NOTE | 2024-09-06 16:28 | PD.RESDS ---
Planned Discharge Date 09/06/24 DS: Providers Provider Date of admission: 08/27/24 20:57 Primary care physician: Daren Lockwood MD Admitting Provider: Jony Allen MD Attending Provider on Admission: Jony Allen MD Consults: 08/27/24 20:43 Consult to Gastroenterology Stat Comment: Consulting Provider: Virgilio Tello Attending Provider on DC: Jony Allen MD Discharging Provider: Jony Allen MD DS: Diagnosis Problem List Completed Was Problem List Reviewed/Reconciled?: Yes Hospital Course Hospital Course Hospital course: Garcia is a 29 years old male with past medical history of alcohol use disorder, 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, gastritis who was admitted for alcohol withdrawal requiring ICU admission. Pt arrived to the ED with a blood pressure of 123/68, pulse 99, respirations 24, temperature 98.4 ?F, oxygen saturation 96% on room air. He was worked up and was found to have a hemoglobin 11.1, hematocrit 31.4%, magnesium 1.4, AST 80, alk phos 176. EKG showed sinus rhythm. Head CT was negative for mass effect or hemorrhage. Chest x-ray was negative. CTAP showed cirrhosis, no focal liver lesions, cholelithiasis, negative for cholecystitis. Patient was given total 15 mg of Valium in the ED, CIWA score at the bedside 35. Patient was given loading dose of phenobarbital to 60 mg and was admitted to ICU for further management. While admitted into the ICU, pt was given scheduled Librium, and diazepam and was also put on phenobarbital. Patient continued to improve and was downgraded from the ICU. While patient was on the floors, patient continued to have withdrawal symptoms that were improving, however he began to have abdominal pain that required narcotic pain to control. He was worked up with imaging which showed significant stool burden. Patient was then cleared out with GoLytely and had a colonoscopy by GI, Dr. Tello. Patient's abdominal pain had improved after GoLytely prep. Colonoscopy had showed hemorrhoids. Patient was then discharged with Librium for alcohol withdrawal symptoms and was told to abstain from alcohol in addition to laxatives. Patient was then discharged with the following instructions. Discharge Instructions: Follow up with PCP within one week I am prescribing you librium, this is for alcohol withdrawal. Take as prescribed and do not drink on this medicine I am prescribing you laxatives for your constipation, take as prescribed Avoid drinking at all costs Take a high fiber diet for your hemorrhoids Return to ER if your symptoms worsen or return Problem List: #Alcohol-related liver disease #Cirrhosis with esophageal varices. #Upper GI bleeding. #Acute acalculous cholecystitis #Constipation #Alcohol dependence with withdrawal?CIWA - currently 0 #Alcohol use disorder #Insomnia #Acute blood loss anemia. #Sinus asymptomatic bradycardia #Hypomagnesemia, resolved #Hemorrhoids Discharge summary was reviewed with my attending Dr. Tiffany Meyers, PGY-2 Time Spent with Patient Time attestation: Total time spent providing and/or coordinating discharge services: Time spent: Greater than 30 minutes Exam Vital Signs Temp Pulse Resp BP Pulse Ox O2 Del Method O2 Flow Rate 97.9 F 77 18 110/88 H 94 L Room Air 3 09/06/24 12:00 09/06/24 12:00 09/06/24 12:00 09/06/24 12:00 09/06/24 12:00 09/06/24 12:00 09/05/24 23:08 Narrative Exam Gen: Well-developed and well-nourished male in moderate distress. HEENT: NCAT, PERRLA, EOMI, MMM, anicteric conjunctivae. CVS: normal S1 and S2. RRR. No M/R/G. Resp: CTA B/L. No rhonchi, rales, crackles or wheezing. Abd: Some tenderness to palpitation in abdomen, non-distended. BS+ in all 4 quadrants. MSK: Good ROM in BUE & BLE. No edema or rash. Neuro: CN II-XII grossly intact. Strength 5/5 in BUE & BLE. Alert and oriented x3. Discharge Plan Plan Patient Disposition: HOME (Self Care) Patient condition on transfer: Stable Care Plan Goals: Discharge Instructions: Follow up with PCP within one week I am prescribing you librium, this is for alcohol withdrawal. Take as prescribed and do not drink on this medicine I am prescribing you laxatives for your constipation, take as prescribed Avoid drinking at all costs Take a high fiber diet for your hemorrhoids Return to ER if your symptoms worsen or return Prescriptions/Referrals Prescriptions/Med Rec: New polyethylene glycol 3350 [Miralax] 17 gram powder in packet 17 g PO QDAY 30 Days Qty: 30 0RF Rx Instructions: Take one packet by mouth every day sennosides [Senokot] 8.6 mg tablet 8.6 mg PO BID 30 Days Qty: 60 0RF Rx Instructions: Take one tablet by mouth twice a day No Action pantoprazole [Protonix] 40 mg tablet,delayed release (DR/EC) 40 mg PO BID 30 Days Qty: 60 3RF Rx Instructions: Take one tablet by mouth twice a day magnesium oxide 400 mg (241.3 mg magnesium) tablet 400 mg PO QDAY Qty: 4 0RF Referrals: Daren Lockwood MD [Primary Care Provider] - Devika Meyers MD [Resident] - Patient/Caregiver Discharge Instructions Discharge Activity: activity as tolerated Education Materials: Treating Cirrhosis, Understanding Cirrhosis, Understanding Gastritis, Eating a High-Fiber Diet, The Impact of Alcoholism, ED Cirrhosis, ED Constipation (Adult), ED Hemorrhoids Print Language: Tunisian Stand Alone Forms: Claire Award Info., Patient Portal Info Letter Discharge Order Discharge Orders: Discharge (Routine); Ordered 09/06/24 Ordered By: Devika Meyers Quality Discharge Quality Measures VTE prophylaxis MD Attestestation MD Attestation I agree with assessment and discharge plan as above. Patient should follow up with PCPas scheduled. Retur to ED for recurrent symptoms.
== END 2024-09-06 11:51 | disposition home or self-care (01) | DRG 775 ==
LOC: SERX 17:02 → SERHOLD 21:13 → S2SX 23:17 → S2NX 08-29 19:18 → S3NX 08-31 21:15
PROVIDERS: Physician Assistant Medical; Specialist; Student in an Organized Health Care Education/Training Program; Admitting Provider Internal Medicine; Emergency Provider Emergency Medicine; PCP Student in an Organized Health Care Education/Training Program; Visit Provider Internal Medicine
PROC: 0DJ08ZZ Inspection of Upper Intestinal Tract, Via Natural or Artificial Opening Endoscopic (ICD-10-PCS; CPT 43239; principal; 2024-08-29 19:30)
PROC: 0DJD8ZZ Inspection of Lower Intestinal Tract, Via Natural or Artificial Opening Endoscopic (ICD-10-PCS; CPT 45378; principal; 2024-09-05 13:00)
DX: F10.231 Alcohol dependence with withdrawal delirium (principal); K70.10 Alcoholic hepatitis without ascites; D62 Acute posthemorrhagic anemia; E83.42 Hypomagnesemia; E83.51 Hypocalcemia; G47.00 Insomnia, unspecified; K70.30 Alcoholic cirrhosis of liver without ascites; K29.71 Gastritis, unspecified, with bleeding; K59.00 Constipation, unspecified; K64.9 Unspecified hemorrhoids; K80.00 Calculus of gallbladder with acute cholecystitis without obstruction; L29.9 Pruritus, unspecified; I85.11 Secondary esophageal varices with bleeding; Z79.899 Other long term (current) drug therapy
CPT/HCPCS: 36415; 70450; 71045; 74018; 74177; 74181; 76700; 78227; 80053; 80061; 80074; 80307; 80320; 81001; 81256; 82010; 82140; 82728; 83036; 83540; 83550; 83605; 83690; 83735; 84100; 84145; 84484; 85025; 85610; 85730; 86140; 86850; 86900; 86901; 87081; 87811; 93005; 93225; 94762; 96365; 96366; 96375; 96376; 99284; A4216; A4649; A9537; J0131; J0696; J1171; J1200; J1885; J2250; J2270; J2354; J2405; J2470; J2560; J2765; J3010; J3360; J3411; J3475; J3490; J7030; J7042; J7050; J7120; Q9967; A9270; G0480; J1836

== ENCOUNTER 2024-09-10 13:13 | Inpatient (IN) | payer MEDICAID, SELFPAY ==
[2024-09-10] VITALS (20 sets, daily range): BP systolic 92–125; BP diastolic 58–85; PULSE 49–128; RESP 9–24; TEMP 36.5–37.1; O2SAT 93–99; BMI 23.8
--- NOTE | 2024-09-10 13:20 | EKG_ITS ---
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
--- NOTE | 2024-09-10 13:34 | EDNOTE_ITS ---
ED GI Bleed RME/HPI General Chief complaint: Abdominal Pain Stated complaint: VOMITING BLOOD Time Seen by Provider: 09/10/24 13:19 Arrival date/time: 09/10/24 13:13 RME / HPI RME / HPI Narrative: 29 year old male with history of alcohol use disorder, liver cirrhosis, esophageal varices, gastritis, recent admission 08/15/2024 through 09/06/2024 for alcohol withdrawal presents to the ED BIBA from home for evaluation of blood in vomit and stool beginning at 03:00 AM today. Accompanied by vague abdominal discomfort. Additionally reports falling back this morning and striking the back of his head and lower back on the floor. While in the ED, complains of pain to his lower back. Patient admits to drinking half a beer today. Related Data Previous Rx's ?Medication ?Instructions ?Recorded dicyclomine 10 mg capsule 10 mg PO QID PRN abdominal p ain 1 08/20/24 month #90 caps pantoprazole 40 mg tablet,delayed 40 mg PO BID 1 month #60 tabs 08/20/24 release (Protonix) chlordiazepoxide HCl 25 mg capsule 25 mg PO QID alcoho l withdrawal 1 09/06/24 month #120 caps polyethylene glycol 3350 17 gram 17 g PO QDAY 1 month #30 ea 09/06/24 oral powder packet (Miralax) sennosides 8.6 mg tablet (Senokot) 8.6 mg PO BID 1 tue #60 tabs 09/06/24 Allergies Allergy/AdvReac Type Severity Reaction Status Date / Time No Known Allergies Allergy Verified 09/10/24 13:24 Review of Systems Review of Systems Systems Reviewed: All systems reviewed, normal except as documented Past Medical History Past Medical History NEUROLOGIC: Positive Neurological Disorders GASTROINTESTINAL: Positive Gastrointestinal Disorders and Cirrhosis PSYCHO/SOCIAL: Positive Anxiety Family History FAMILY HISTORY: Positive Family Psychiatric Problems Surgical History SURGICAL: Negative Abdominal Surgery Social History SMOKING STATUS: Never smoker SECOND HAND EXPOSURE: No ED Exam Narrative Physical exam: GENERAL APPEARANCE: Appears intoxicated, well-developed, well-nourished HEENT: Normocephalic, atraumatic; pupils equal, round, reactive to light; EOMI; mucous membranes pink, moist; oropharynx clear NECK: Supple LUNGS: CTABL; no wheezes, no rales, no rhonchi HEART: Regular rate, regular rhythm; normal S1, S2; no murmurs ABDOMEN: non distended; normal BS; soft, no tenderness, no guarding, no rebound; no masses, no organomegaly, no hernia BACK: no CVA tenderness EXTREMITIES: atraumatic; no edema NEUROLOGIC: oriented x4; cranial nerves II-XII grossly intact; no focal sensory or motor deficits PSYCHIATRIC: appropriate mood and affect SKIN: warm, mildly diaphoretic, normal color; no rashes Course Quality Measures none Orders Category Date Time Status Field Care Manager NOW Care 09/10/24 13:20 Active EKG (ED ONLY) *Do not use* NOW Care 09/10/24 13:[address] head/brain wo con Stat Exams 09/10/24 17:03 Ordered EKG (ED Only) Stat Exams 09/10/24 13:20 Draft XR lumbar spine min 4V Stat Exams 09/10/24 14:53 Completed XR pelvis 1-2V Stat Exams 09/10/24 14:53 Completed Alcohol, Blood Medical Stat Lab 09/10/24 13:30 Completed B-Type Natriuretic Peptide Stat Lab 09/10/24 13:30 Completed CBC Stat Lab 09/10/24 13:30 Completed Comprehensive Metabolic Panel Stat Lab 09/10/24 13:30 Completed Drug Screen,Urine Stat Lab 09/10/24 14:35 Completed Lipase Stat Lab 09/10/24 13:30 Completed Magnesium Stat Lab 09/10/24 13:30 Completed Partial Thromboplastin Time Stat Lab 09/10/24 13:30 Completed Prothrombin Time with INR Stat Lab 09/10/24 13:30 Completed Troponin I Stat Lab 09/10/24 13:30 Completed Magnesium Sulfate 2 GM Ivpb [Magnesium Sulfate Ivpb] Med 09/10/24 14:40 Discontinued 2 gm in 50 ml IV X1 Morphine Inj Med 09/10/24 14:52 Discontinued 3 mg IVP X1 ONE Octreotide Acet Inj [SandoSTATIN Inj] Med 09/10/24 13:25 Discontinued 50 mcg IV X1 ONE Ondansetron Inj [Zofran Inj] Med 09/10/24 14:15 Discontinued 4 mg IVP X1 ONE Ondansetron Inj [Zofran Inj] Med 09/10/24 14:52 Discontinued 4 mg IVP X1 ONE Pantoprazole Inj [Protonix Inj] Med 09/10/24 13:25 Discontinued 80 mg IVP X1 ONE Pantoprazole/Ns 80Mg IV Premix [Protonix/NS 80mg IV Med 09/10/24 13:26 Active Premix] 80 mg in 100 ml IV X1 Sodium Chloride 0.9% 1000 ml [Ns] 1,000 ml Med 09/10/24 17:51 Active IV 999 mls/hr Sodium Chloride 0.9% [Ns] 100 ml Med 09/10/24 13:30 Active Octreotide Acet Inj [SandoSTATIN Inj] 1,000 mcg IV 50 mcg/hr Vital Signs Vital signs: Vital Signs Temperature 98.1 F 09/10/24 13:44 Pulse Rate 121 H 09/10/24 13:44 Respiratory Rate 19 09/10/24 13:44 Blood Pressure 99/59 L 09/10/24 13:44 Pulse Oximetry (%) 96 09/10/24 13:44 Oxygen Delivery Method Nasal Cannula 09/10/24 13:44 Oxygen Flow Rate 6 09/10/24 13:44 GI Bleed MDM Narrative MDM Narrative:: Hazel Bowen am scribing for and in the presence of Dr. Reyes. Patient data External records reviewed:: [facility] previous records (I reviewed admission from 08/15/2024 through 09/06/2024 for alcohol withdrawal ) and EMS form Clinical information provided by:: patient and EMS Social determinants that could affect healthcare access:: alcohol use Patient has the following chronic illnesses:: alcohol use disorder, liver cirrhosis, esophageal varices, gastritis, recent admission 08/15/2024 through 09/06/2024 for alcohol withdrawal How is presenting disease/condition affected by chronic disease/condition?: exacerbated by Evaluation data The following diagnostics were reviewed and interpreted by me:: lab results and EKG tracing(s) (09/10/2024 @ 13:51. Sinus rhythm, rate 82, no acute ischemic changes, no STEMI ) Lab and/or radiology exams considered but not ordered:: None Interpretation Summary: Ordering Physician: Edwina Reyes MD Date of Service: 09/10/24 Procedure(s): XR lumbar spine min 4V Accession Number(s): [id number] cc: Saúl Barrett MD; Edwina Reyes MD; Kojo Barajas MD~ Examination: Lumbar spine, 5 views Technique: Lumbar spine AP, lateral, coned lateral lower lumbar spine, bilateral obliques 5 views Exam date and time: September 10, 2024 1532 hours INDICATIONS: Patient fell today with into the lower back, lower back pain. FINDINGS: Satisfactory alignment lumbar vertebral bodies No lumbar fracture No spondylolisthesis IMPRESSION: No lumbar fracture Dictated By: Saúl Barrett MD Signed By: <Electronically signed by Saúl Barrett MD in OV> 09/10/24 1600 Ordering Physician: Edwina Reyes MD Date of Service: 09/10/24 Procedure(s): XR pelvis 1-2V Accession Number(s): [id number] cc: Saúl Barrett MD; Edwina Reyes MD; Kojo Barajas MD~ Examination: AP pelvis single view TECHNIQUE: AP pelvis portable single view INDICATIONS: Patient fell today with into the pelvis, pelvic pain. FINDINGS: No acute hip or pelvic fracture No foreign body IMPRESSION: No acute hip or pelvic fracture Dictated By: Saúl Barrett MD Signed By: <Electronically signed by Saúl Barrett MD in OV> 09/10/24 1600 Medications / Prescriptions Medications or Prescriptions considered but not ordered:: None Medication administrations:: Medication Administration History Octreotide Acetate 1,000 mcg/ (Sodium Chloride) 102 mls @ 5.1 mls/hr IV .Q20H ONE; Protocol Stop: 09/11/24 09:29 Last Admin: 09/10/24 14:40 Dose: 50 mcg/hr, 5.1 mls/hr Documented By: RICKIE Pantoprazole Sodium (Protonix/Ns 80mg Iv Premix) 80 mg in 100 mls @ 10 mls/hr IV X1 ONE Stop: 09/10/24 23:25 Last Admin: 09/10/24 17:24 Dose: 10 mls/hr Documented By: RD Sodium Chloride (Ns) 1,000 mls @ 999 mls/hr IV .Q1H1M ONE Stop: 09/10/24 18:51 Discontinued Medications Magnesium Sulfate (Magnesium Sulfate Ivpb) 2 gm in 50 mls @ 25 mls/hr IV X1 ONE Stop: 09/10/24 16:39 Last Infusion: 09/10/24 17:28 Dose: Infused Documented By: Admin: 09/10/24 15:25 Dose: 25 mls/hr Documented By: GM Morphine Sulfate (Morphine Sulf Inj 10 Mg/Ml Vial) 3 mg IVP X1 ONE Stop: 09/10/24 14:53 Last Admin: 09/10/24 15:56 Dose: 3 mg Documented By: RICKIE Octreotide Acetate (Octreotide Acet Inj 50 Mcg/Ml Vial) 50 mcg IV X1 ONE Stop: 09/10/24 13:26 Last Admin: 09/10/24 14:28 Dose: 50 mcg Documented By: RICKIE Ondansetron HCl (Ondansetron Inj 2 Mg/Ml Inj 2 Ml) 4 mg IVP X1 ONE; Protocol Stop: 09/10/24 14:16 Last Admin: 09/10/24 15:22 Dose: 4 mg Documented By: GM Ondansetron HCl (Ondansetron Inj 2 Mg/Ml Inj 2 Ml) 4 mg IVP X1 ONE Stop: 09/10/24 14:53 Pantoprazole Sodium (Pantoprazole Inj 40 Mg Vial) 80 mg IVP X1 ONE Stop: 09/10/24 13:26 Last Admin: 09/10/24 14:27 Dose: 80 mg Documented By: RICKIE See above Consultations Consultation(s) initiated? (list below): Yes Consultation #1 (Physician, Specialty, Details): I spoke with residents regarding admission. Discussed patients PMHx, HPI, ED cou rse, exam findings, labs, and radiology results. They are requesting head CT prior to admission. Time: 17:00 Diagnosis GI bleed differential diagnosis: esophageal varices, gastritis, Tata-Everett syndrome, Upper gastrointestinal hemorrhage, Lower gastrointestinal hemorrhage, hematochezia and melena Most likely diagnosis given after review of the tests above:: GI bleed Alcohol intoxication Admission Indicated Admission indicated?: indicated Admission Request Was there a request for admission?: Yes Admission Attestation Admission request attestation: Discussed case with [] from Hospitalist service regarding admission. Discussed patients ED course, exam findings, labs, and radiology results. The Hospitalist [agrees,declines] to accept the patient for admission. Disposition Plan Disposition Plan: Admit Discharge Plan Plan Patient Disposition: Admit Acute Care w/in Hospital Prescriptions/Referrals Prescriptions/Med Rec: No Action pantoprazole [Protonix] 40 mg tablet,delayed release (DR/EC) 40 mg PO BID 30 Days Qty: 60 3RF Rx Instructions: Take one tablet by mouth twice a day dicyclomine 10 mg capsule 10 mg PO QID PRN (Reason: abdominal pain) 30 Days Qty: 90 2RF Rx Instructions: Take one tablet as needed up to four times a day polyethylene glycol 3350 [Miralax] 17 gram powder in packet 17 g PO QDAY 30 Days Qty: 30 0RF Rx Instructions: Take one packet by mouth every day sennosides [Senokot] 8.6 mg tablet 8.6 mg PO BID 30 Days Qty: 60 0RF Rx Instructions: Take one tablet by mouth twice a day chlordiazepoxide HCl 25 mg capsule 25 mg PO QID MDD 4 tablets 30 Days Qty: 120 0RF Rx Instructions: Take one tablet by mouth four times a day Referrals: Kojo Barajas MD [Primary Care Provider] - In 1 week Problem List Clinical Impression: GI bleed, Alcohol intoxication Patient/Caregiver Discharge Instructions Print Language: Pashto Stand Alone Forms: Claire Award Info., Patient Portal Info Letter
[2024-09-10 13:49] LABS: Basophils # (Auto) 0.1 Thou/mm3 (0.0-0.2); Basophils % (Auto) 1 % (0-2.5); Eosinophils # (Auto) 0.0 Thou/mm3 (0.0-0.5); Eosinophils % (Auto) 1 % (0-10); Hematocrit 33.6 % (41.0-53.0); Hemoglobin 11.5 g/dL (13.5-16.0); Immature Granulocytes Auto 0.01 Thou/mm3 (0.00-0.00); Lymphocytes # (Auto) 2.0 Thou/mm3 (1.0-4.8); Lymphocytes % (Auto) 46 % (10-50); Mean Corpuscular HGB Conc 34.2 g/dl (31.0-37.0); Mean Corpuscular Hemoglobin 33.9 pg (25.0-35.0); Mean Corpuscular Volume 99 fL (80-100); Monocytes # (Auto) 0.5 Thou/mm3 (0.0-0.8); Monocytes % (Auto) 13 % (0-12); Neutrophils # (Auto) 1.7 Thou/mm3 (1.8-7.7); Neutrophils % (Auto) 39 % (37-80); Nucleated Red Blood Cell # 0.00 Thou/mm3 (0.00-0.00); Nucleated Red Blood Cell % 0 /100 WBC (0); Platelet Count 263 Thou/mm3 (140-440); RDW Standard Deviation 51.1 fL (35.1-43.9); Red Blood Count 3.39 Miln/mm3 (4.50-5.90); White Blood Count 4.3 Thou/mm3 (3.8-10.6)
[2024-09-10 14:02] LABS: INR 1.1 (0.9-1.3); Partial Thromboplastin Time 31.4 Seconds (22.0-36.0); Prothrombin Time 12.1 Seconds (9.0-12.2)
[2024-09-10 14:10] LABS: B-Type Natriuretic Peptide < 20 pg/mL (0-100)
--- NOTE | 2024-09-10 14:11 | PC.NURSE ---
PATIENT BIBA FROM HOME FOR BLOOD IN STOOL AND VOMIT. PATIENT STATES THAT HE IS ALSO HAVING ABD AND BACK PAIN WELL COMPLAINT OF HEAD PAIN DUE TO FALL. PATIENTR STATES THAT HE HAS END STAGE LIVER DISEASE AND WAS ON HIS WAY TO SEE PRIMARY PRIOR TO CALLING EMS.
[2024-09-10 14:20] LABS: Alanine Aminotransferase 42 U/L (10-49); Albumin, Serum 4.4 gm/dL (3.5-5.0); Albumin/Globulin Ratio 1.9 (1.2-2.2); Alcohol, Blood Medical 330.2 mg/dL (0-10.0); Alkaline Phosphatase 144 U/L (46-116); Anion Gap 14 (7-16); Aspartate Amino Transferase 61 U/L (0-34); BUN/Creatinine Ratio 8 Ratio (12-20); Bilirubin,Total 0.3 mg/dL (0.3-1.2); Blood Urea Nitrogen 7 mg/dL (9-23); Calcium 8.5 mg/dL (8.3-10.6); Calcium (Corrected) 8.5 mg/dL (8.5-10.1); Carbon Dioxide 19.0 mMol/L (20.0-31.0); Chloride 105 mMol/L (98-107); Creatinine (Component) 0.9 mg/dL (0.6-1.3); Estimated Creatinine Clearance 95.2 mL/min (>60); Globulin 2.3 gm/dL (2.3-3.5); Glucose 113 mg/dL (74-106); Lipase 29 U/L (12-53); Magnesium 1.5 mg/dL (1.6-2.6); Osmolality,Calculated 274 (275-295); Potassium 3.7 mMol/L (3.4-5.1); Sodium 138 mMol/L (136-145); Total Protein 6.7 gm/dL (5.7-8.2); Troponin I < 0.002 ng/mL (0.0-0.045); eGFR > 60 See Note
[2024-09-10] MEDS: OCTREOTIDE ACET INJ 50 mCg/ML VIAL IV (14:28)
[2024-09-10] MEDS: OCTREOTIDE ACET INJ 1,000 MCG in SODIUM CHLORIDE 0.9% 100 ML 5.1 MCG IV (14:40)
--- NOTE | 2024-09-10 14:53 | XR_ITS ---
Examination: Lumbar spine, 5 views Technique: Lumbar spine AP, lateral, coned lateral lower lumbar spine, bilateral obliques 5 views Exam date and time: September 10, 2024 1532 hours INDICATIONS: Patient fell today with into the lower back, lower back pain. FINDINGS: Satisfactory alignment lumbar vertebral bodies No lumbar fracture No spondylolisthesis IMPRESSION: No lumbar fracture
--- NOTE | 2024-09-10 14:53 | XR_ITS ---
Examination: AP pelvis single view TECHNIQUE: AP pelvis portable single view INDICATIONS: Patient fell today with into the pelvis, pelvic pain. FINDINGS: No acute hip or pelvic fracture No foreign body IMPRESSION: No acute hip or pelvic fracture
[2024-09-10] MEDS: ONDANSETRON INJ 2 MG/ML INJ 2 ML 4 MG IVP (15:22)
[2024-09-10] MEDS: Magnesium Sulfate 2 GM Ivpb 2 GM/50 ML BAG IV (15:25)
[2024-09-10 15:40] LABS: Amphetamine/Methamp Scrn,U Negative (Negative); Barbiturate Screen,Urine Negative (Negative); Benzodiazepines Screen,Urine Positive (Negative); Benzoylecgonine Screen, Ur Negative (Negative); Fentanyl Screen,Urine Negative (Negative); Opiate Screen,Urine Negative (Negative); THC Screen,Urine Negative (Negative)
[2024-09-10] MEDS: MORPHINE SULF INJ 10 MG/ML VIAL 3 MG IVP (15:56)
--- NOTE | 2024-09-10 17:03 | XR_ITS ---
Examination: CT brain head without contrast. 2-D sagittal coronal reconstructions Date and time of exam:September 10, 2024 1750 hours INDICATIONS: Ground-level fall today with image of the head, head pain CTDI: vol (mGy):47.2 DLP: (mGycm):957 Technique: Multiple CT axial sections of the brain have been obtained, 5 mm slice thickness. Contrast has not been administered. 2-D sagittal, coronal reconstructions have been obtained Low dose protocols were performed. One or more of the following dose reduction techniques were used; automated exposure control, adjustment of the mA and/or KV according to patient size, use of iterative reconstruction technique. Findings: No significant ventricular enlargement. Intra-axial or extra-axial hemorrhage density is not seen. No mass effect or midline shift Basal cisterns are not remarkable. Fourth ventricle is midline. Cranial vault intact. Impression: Negative for acute hemorrhage, mass effect or midline shift
[2024-09-10] MEDS: PANTOPRAZOLE/NS 80MG IV PREMIX 80 MG/100 ML BAG 10 MG IV (17:24)
--- NOTE | 2024-09-10 18:22 | PD.RESEVENT ---
Documentation for date of: 09/10/24 Event Note Event Note: Received a call from the ED for admission of Mr. Ybarra, who is a 29-year-old male with past medical history significant for alcohol use disorder and esophageal varices presented to the ED due to hematemesis and hematochezia. Patient had been drinking alcohol all day and is acutely intoxicated and had a ground-level fall striking his head on the floor. Requested the ED for a CT of the head to rule out any hemorrhage secondary to the fall before admission orders are placed. Will sign out to the night team for admission.
[2024-09-10] MEDS: SODIUM CHLORIDE 0.9% 1000 ML 1,000 ML 999 ML IV (18:34)
--- NOTE | 2024-09-10 18:35 | PD.RESEVENT ---
Documentation for date of: 09/10/24 Event Note Event Note: Patient plan of care was discussed with the senior resident [...]? and attending physician [...]? Avtar Harp, PGY1
--- NOTE | 2024-09-10 20:24 | XR_ITS ---
Examination: CT cervical spine without contrast 2-D sagittal reconstructions 2-D coronal reconstructions 3-D reconstructions. Exam date and time:September 10, 2024 10:39 PM INDICATIONS: Patient fell today with image of the neck, neck pain CTDI:vol (mGy) 13.3 DLP: (mGycm) 311 Technique: Multiple 2 mm axial sections of the cervical spine have been obtained. The coronal and sagittal reconstructions have been obtained. 3-D reconstructions have been obtained. Low dose protocols were performed. One or more of the following dose reduction techniques were used; automated exposure control, adjustment of the mA and/or KV according to patient size, use of iterative reconstruction technique. Findings: Axial sections demonstrate intact base of the skull. C1 exhibit satisfactory relationship to the odontoid. No acute cervical vertebral body fracture seen. Alignment posterior spinous processes satisfactory. Impression: No acute cervical fracture.
[2024-09-10] MEDS: MORPHINE SULF INJ 10 MG/ML VIAL IVP (20:48)
[2024-09-10] MEDS: DIAZEPAM INJ 5 MG/ML VIAL 2 ML IVP (20:51)
[2024-09-10 22:20] LABS: Basophils # (Auto) 0.1 Thou/mm3 (0.0-0.2); Basophils % (Auto) 1 % (0-2.5); Eosinophils # (Auto) 0.0 Thou/mm3 (0.0-0.5); Eosinophils % (Auto) 1 % (0-10); Hematocrit 35.4 % (41.0-53.0); Hemoglobin 12.2 g/dL (13.5-16.0); Immature Granulocytes Auto 0.00 Thou/mm3 (0.00-0.00); Lymphocytes # (Auto) 1.9 Thou/mm3 (1.0-4.8); Lymphocytes % (Auto) 51 % (10-50); Mean Corpuscular HGB Conc 34.5 g/dl (31.0-37.0); Mean Corpuscular Hemoglobin 33.8 pg (25.0-35.0); Mean Corpuscular Volume 98 fL (80-100); Monocytes # (Auto) 0.3 Thou/mm3 (0.0-0.8); Monocytes % (Auto) 9 % (0-12); Neutrophils # (Auto) 1.4 Thou/mm3 (1.8-7.7); Neutrophils % (Auto) 37 % (37-80); Nucleated Red Blood Cell # 0.00 Thou/mm3 (0.00-0.00); Nucleated Red Blood Cell % 0 /100 WBC (0); Platelet Count 253 Thou/mm3 (140-440); RDW Standard Deviation 49.8 fL (35.1-43.9); Red Blood Count 3.61 Miln/mm3 (4.50-5.90); White Blood Count 3.7 Thou/mm3 (3.8-10.6)
[2024-09-10] MEDS: KETOROLAC INJ 30 MG/ML VIAL IVP (22:27)
[2024-09-10] MEDS: cefTRIAXone/D5w 1gm IV premix 1 GM/50 ML BAG IV (23:07)
[2024-09-11] VITALS (9 sets, daily range): BP systolic 97–167; BP diastolic 53–93; PULSE 33–531; RESP 14–18; TEMP 35.9–36.9; O2SAT 94–98
--- NOTE | 2024-09-11 | PD.RESHP ---
Documentation for date of: 09/11/24 HPI History of Present Illness Chief complaint: Hematemesis History of present illness: 29 y/o M with PMHx significant for alcohol abuse with previous alcohol withdrawl, cirrhosis with varices, previous GI bleed presented with chief complaint of an episode of hematemesis and ground-level fall. Of note patient was recently discharged less than 1 week ago after being mated for GI bleed and alcohol withdrawal. Patient reports that he began drinking shortly after discharge, although reported drinking only half a beer daily. Patient reports that he had an episode of hematemesis, after which he fell to the ground hitting the sidewalk. Patient also reports that for several days he has had melena. Complains of pain in his back and abdomen. Denies fever, chills, chest pain, shortness of breath. ED COURSE: Labs significant for: Hemoglobin stable 12.2. Bicarb 19. Magnesium 1.5. Troponin negative. U tox positive for benzos, alcohol level 330.2. Imaging significant for: Head CT negative, C-spine CT negative, lumbar spine and pelvic x-rays negative. EKG unremarkable. Patient started octreotide drip, Protonix drip in the ED. Received 1 L bolus normal saline. PMH: Alcohol abuse with previous alcohol withdrawal, cirrhosis with varices, previous GI bleed PSH: None SH: Patient denies tobacco or illicit drug use. Reports long history of alcohol abuse, but states he is currently drinking half beer daily. Allergies:?NKDA Medications: Patient unsure of his medications. Review of Systems Review of Systems Systems Reviewed: All systems reviewed, normal except as documented Past Medical History Past Medical History Comments PMH COMMENT: PMH: Alcohol abuse with previous alcohol withdrawal, cirrhosis with varices, previous GI bleed PSH: None SH: Patient denies tobacco or illicit drug use. Reports long history of alcohol abuse, but states he is currently drinking half beer daily. Allergies:?NKDA Medications: Patient unsure of his medications. Exam Vital Signs Temp Pulse Resp BP Pulse Ox O2 Del Method O2 Flow Rate 98.8 F 56 L 16 107/74 96 Room Air 6 09/10/24 23:01 09/10/24 23:01 09/10/24 23:01 09/10/24 23:01 09/10/24 23:01 09/10/24 20:45 09/10/24 13:44 Narrative Exam PE: Gen: Well-developed and well-nourished. Distressed, diaphoretic. HEENT: NCAT, PERRLA, EOMI, MMM, anicteric conjunctivae. CVS: normal S1 and S2. RRR. No M/R/G. Resp: CTA B/L. No rhonchi, rales, crackles or wheezing. Abd: soft, non-distended. Diffuse abdominal tenderness. MSK: Good ROM in BUE & BLE. No edema or rash. Neuro: CN II-XII grossly intact. Strength 5/5 in BUE & BLE. Alert and oriented x3. Reports visual hallucinations. Moderate tremors. Results: Labs 09/10/24 22:14 09/10/24 13:30 Labs: Short CBC 09/10/24 09/10/24 Range/Units 13:30 22:14 WBC 4.3 3.7 L (3.8-10.6) Thou/mm3 Hgb 11.5 L 12.2 L (13.5-16.0) g/dL Hct 33.6 L 35.4 L (41.0-53.0) % Plt Count 263 D 253 (140-440) Thou/mm3 BMP 09/10/24 13:30 Sodium 138 Potassium 3.7 Chloride 105 Carbon Dioxide 19.0 L BUN 7 L Creatinine 0.9 Glucose 113 H Calcium 8.5 Cardiac Enzymes 09/10/24 Range/Units 13:30 Troponin I < 0.002 (0.0-0.045) ng/mL Liver Function 09/10/24 Range/Units 13:30 Total Bilirubin 0.3 (0.3-1.2) mg/dL AST 61 H (0-34) U/L ALT 42 (10-49) U/L Alkaline Phosphatase 144 H (46-116) U/L Albumin 4.4 (3.5-5.0) gm/dL Quality Measures Quality Measures VTE prophylaxis Medications Home Medications and Allergies Allergies Allergy/AdvReac Type Severity Reaction Status Date / Time No Known Allergies Allergy Verified 09/10/24 13:24 Visit Medications Acetaminophen (Acetaminophen 325 Mg Tablet) 650 mg PO Q6H PRN PRN Reason: Fever >100.4 or pain 1-3 Stop: 10/10/24 23:40 Hydrocodone Bitart/Acetaminophen (Hydrocodone/Apap 5/325 Tablet) 1 tab PO Q4HR PRN PRN Reason: PAIN SCALE 4-10(Mod-Sev Stop: 09/15/24 23:40 Chlordiazepoxide HCl (Chlordiazepoxide Hcl 25 Mg Capsule) 25 mg PO Q8HR APOORVA Stop: 09/15/24 21:59 Last Admin: 09/10/24 22:27 Dose: 25 mg Diazepam (Diazepam Inj 5 Mg/Ml Vial 2 Ml) 5 mg IVP X1 PRN; Protocol PRN Reason: Breakthrough Agitation Diazepam (Diazepam Inj 5 Mg/Ml Vial 2 Ml) 10 mg IVP X1 PRN PRN Reason: Breakthrough Agitation Diazepam (Diazepam Inj 5 Mg/Ml Vial 2 Ml) 10 mg IVP Q2HR PRN PRN Reason: CIWA SCORE 20-25 Stop: 09/15/24 20:44 Diazepam (Diazepam Inj 5 Mg/Ml Vial 2 Ml) 5 mg IVP Q2HR PRN PRN Reason: CIWA SCORE 14-19 Stop: 09/15/24 20:44 Octreotide Acetate 1,000 mcg/ (Sodium Chloride) 102 mls @ 5.1 mls/hr IV .Q20H ONE; Protocol Stop: 09/11/24 09:29 Last Admin: 09/10/24 14:40 Dose: 50 mcg/hr, 5.1 mls/hr Lorazepam (Lorazepam 0.5 Mg Tablet) 1 mg PO Q4HR PRN PRN Reason: CIWA SCORE 7-11 Stop: 09/15/24 20:44 Ondansetron HCl (Ondansetron Inj 2 Mg/Ml Inj 2 Ml) 4 mg IVP Q6H PRN; Protocol PRN Reason: NAUSEA OR VOMITING Stop: 10/10/24 23:40 Discontinued Medications Diazepam (Diazepam Inj 5 Mg/Ml Vial 2 Ml) 5 mg IVP X1 ONE Stop: 09/10/24 20:26 Last Admin: 09/10/24 20:51 Dose: 5 mg Pantoprazole Sodium (Protonix/Ns 80mg Iv Premix) 80 mg in 100 mls @ 10 mls/hr IV X1 ONE Stop: 09/10/24 23:25 Last Admin: 09/10/24 17:24 Dose: 10 mls/hr Magnesium Sulfate (Magnesium Sulfate Ivpb) 2 gm in 50 mls @ 25 mls/hr IV X1 ONE Stop: 09/10/24 16:39 Last Infusion: 09/10/24 17:28 Dose: Infused Sodium Chloride (Ns) 1,000 mls @ 999 mls/hr IV .Q1H1M ONE Stop: 09/10/24 18:51 Last Infusion: 09/10/24 19:38 Dose: Infused Ceftriaxone Sodium/Dextrose (Rocephin/D5w 1gm Iv Premix) 1 gm in 50 mls @ 100 mls/hr IV X1 ONE Stop: 09/10/24 21:35 Last Infusion: 09/10/24 23:37 Dose: Infused Ketorolac Tromethamine (Ketorolac Inj 30 Mg/Ml Vial) 30 mg IVP X1 ONE Stop: 09/10/24 22:01 Last Admin: 09/10/24 22:27 Dose: 30 mg Lorazepam (Lorazepam 0.5 Mg Tablet) 1 mg PO X1 ONE Stop: 09/10/24 20:39 Last Admin: 09/10/24 20:50 Dose: 1 mg Morphine Sulfate (Morphine Sulf Inj 10 Mg/Ml Vial) 3 mg IVP X1 ONE Stop: 09/10/24 14:53 Last Admin: 09/10/24 15:56 Dose: 3 mg Morphine Sulfate (Morphine Sulf Inj 10 Mg/Ml Vial) 1 mg IVP X1 ONE Stop: 09/10/24 20:25 Last Admin: 09/10/24 20:48 Dose: 1 mg Octreotide Acetate (Octreotide Acet Inj 50 Mcg/Ml Vial) 50 mcg IV X1 ONE Stop: 09/10/24 13:26 Last Admin: 09/10/24 14:28 Dose: 50 mcg Ondansetron HCl (Ondansetron Inj 2 Mg/Ml Inj 2 Ml) 4 mg IVP X1 ONE; Protocol Stop: 09/10/24 14:16 Last Admin: 09/10/24 15:22 Dose: 4 mg Ondansetron HCl (Ondansetron Inj 2 Mg/Ml Inj 2 Ml) 4 mg IVP X1 ONE Stop: 09/10/24 14:53 Pantoprazole Sodium (Pantoprazole Inj 40 Mg Vial) 80 mg IVP X1 ONE Stop: 09/10/24 13:26 Last Admin: 09/10/24 14:27 Dose: 80 mg Assessment & Plan Plan 29 y/o M with PMHx significant for alcohol abuse with previous alcohol withdrawl, cirrhosis with varices, previous GI bleed presented with chief complaint of an episode of hematemesis and ground-level fall, admitted for upper GI bleed and alcohol withdrawal. #Upper GI bleed #Esophageal varices #Liver cirrhosis Patient presented with complaint of hematemesis and melena. Patient has history of cirrhosis with varices resulting in previous severe GI bleeding. Hemoglobin currently stable, patient denies shortness of breath, chest pain, lightheadedness. Patient on octreotide drip Protonix drip in the ED, given 1 L normal saline bolus. - Octreotide drip - Protonix 80 mg IV twice daily - GI consulted, appreciate recommendations - Monitor hemoglobin, transfuse as needed - Avoid NSAIDs - Avoid hepatically cleared medications - Rocephin 1 g IV daily for SBP prophylaxis #Alcohol withdrawal #Alcohol abuse Patient has history of alcohol withdrawal and alcohol abuse. Currently appears to be in withdrawal, with diaphoresis, visual hallucinations, anxiety, moderate tremors. - CIWA protocol - Librium 25 mg p.o. every 8 hour - Thiamine 100 mg p.o. daily - Folic acid 1 mg p.o. daily - Seizure precautions #Ground-level fall Patient reports having ground-level fall, Cervical spine point tenderness reported, noted to have diffuse body pain. Head CT negative, C-spine CT negative, lumbar and pelvic x-rays negative. - [place] 5 p.o. every 4 hours as needed DVT prophylaxis: SCDs GI prophylaxis: Protonix Diet: N.p.o. Lines: Peripheral IV Code status: Full code Plan of care discussed with Dr. Lizzie Wade MD PGY-2 Attending Provider Attestation/Addendum Attending Provider Attestation/Addendum After examination of the patient and review of the clinical data I feel that this patient needs admission to the hospital for further treatment/evaluation. I Ally Samuel MD, attest that I was physically present for louise portions of evaluation, and examined patient, labs and imagings and plan of care were discussed with IM residents team, and I agree with the findings and plans documented above.
--- NOTE | 2024-09-11 00:47 | PC.NURSE ---
Report called to floor nurse ASHLEY Stauffer
[2024-09-11] MEDS: HYDROcodone/APAP 5/325 TABLET 1 TAB PO ×3 (01:23→13:46)
[2024-09-11] MEDS: FOLIC ACID 1 MG TABLET PO ×2 (01:24→08:45)
[2024-09-11] MEDS: THIAMINE INJ 100 MG in SODIUM CHLORIDE 0.9% 100 ML 202 MG IV (01:45)
[2024-09-11] MEDS: Magnesium Sulfate 4 GM Ivpb 4 GM/50 ML BAG IV (02:35)
[2024-09-11 06:10] LABS: Basophils # (Auto) 0.1 Thou/mm3 (0.0-0.2); Basophils % (Auto) 3 % (0-2.5); Eosinophils # (Auto) 0.1 Thou/mm3 (0.0-0.5); Eosinophils % (Auto) 3 % (0-10); Hematocrit 32.3 % (41.0-53.0); Hemoglobin 11.1 g/dL (13.5-16.0); Immature Granulocytes Auto 0.00 Thou/mm3 (0.00-0.00); Lymphocytes # (Auto) 1.8 Thou/mm3 (1.0-4.8); Lymphocytes % (Auto) 50 % (10-50); Mean Corpuscular HGB Conc 34.4 g/dl (31.0-37.0); Mean Corpuscular Hemoglobin 34.4 pg (25.0-35.0); Mean Corpuscular Volume 100 fL (80-100); Monocytes # (Auto) 0.6 Thou/mm3 (0.0-0.8); Monocytes % (Auto) 16 % (0-12); Neutrophils # (Auto) 1.0 Thou/mm3 (1.8-7.7); Neutrophils % (Auto) 29 % (37-80); Nucleated Red Blood Cell # 0.00 Thou/mm3 (0.00-0.00); Nucleated Red Blood Cell % 0 /100 WBC (0); Platelet Count 247 Thou/mm3 (140-440); RDW Standard Deviation 50.4 fL (35.1-43.9); Red Blood Count 3.23 Miln/mm3 (4.50-5.90); White Blood Count 3.7 Thou/mm3 (3.8-10.6)
[2024-09-11 06:25] LABS: INR 1.1 (0.9-1.3); Partial Thromboplastin Time 30.3 Seconds (22.0-36.0); Prothrombin Time 11.7 Seconds (9.0-12.2)
[2024-09-11 06:48] LABS: Alanine Aminotransferase 51 U/L (10-49); Albumin, Serum 4.0 gm/dL (3.5-5.0); Albumin/Globulin Ratio 1.8 (1.2-2.2); Alkaline Phosphatase 141 U/L (46-116); Anion Gap 15 (7-16); Aspartate Amino Transferase 114 U/L (0-34); BUN/Creatinine Ratio 6 Ratio (12-20); Bilirubin,Total 0.4 mg/dL (0.3-1.2); Blood Urea Nitrogen 6 mg/dL (9-23); Calcium 8.5 mg/dL (8.3-10.6); Calcium (Corrected) 8.5 mg/dL (8.5-10.1); Carbon Dioxide 19.0 mMol/L (20.0-31.0); Chloride 110 mMol/L (98-107); Creatinine (Component) 1.0 mg/dL (0.6-1.3); Estimated Creatinine Clearance 85.7 mL/min (>60); Globulin 2.2 gm/dL (2.3-3.5); Glucose 118 mg/dL (74-106); Magnesium 3.1 mg/dL (1.6-2.6); Osmolality,Calculated 285 (275-295); Phosphorous 6.2 mg/dL (2.4-5.1); Potassium 4.3 mMol/L (3.4-5.1); Sodium 144 mMol/L (136-145); Total Protein 6.2 gm/dL (5.7-8.2); eGFR > 60 See Note
--- NOTE | 2024-09-11 07:22 | PC.NURSE ---
Unable to do med rec with patient due to patient not being able to remember what mediation he is taking at home. per pattient, dad will bring medication to the hospital.
[2024-09-11] MEDS: THIAMINE 100 MG TABLET PO (08:45)
--- NOTE | 2024-09-11 09:44 | ESPR_ITS ---
<Statement entered by Ann-Marie Prasad MD - 09/11/24 15:19> Patient is seen at bedside, currently saturating on room air. Patient is complaining of abdominal pain that is not subsiding with [place] KUB is ordered which showed gas pattern. Will order simethicone. Patient also had episodes of bradycardia with heart rate in 30s to 40s without any symptoms. Will order EKG and consult cardiology for further recommendations. Patient's CIWA is still above 10 currently receiving Valium as per CIWA protocol due to shortage of Ativan currently. Will continue to monitor patient's symptoms and CIWA score. Pending GI recommendations. Patient was seen and examined by me personally. I have directly supervised and reviewed documentation by the team resident and agree with its findings with the above exceptions/and additional findings. ------- Plan of care was discussed with the attending, Dr. Shabbir Prasad, PGY-2 Documentation for date of: 09/11/24 Subjective Subjective Interval history: Overnight events: No acute events overnight. Patient was seen and examined at bedside. AM vitals and labs reviewed. Visibly anxious and slight tremors at hands. Patient complains of acute abdominal pain that is tender to light touch. Patient also states that he is feeling very anxious, requests additional medication, and notes how he is seeing bad people who are saying bad things to him, but when asked to clarify, the patient was not able to. According to the patient, the patient was not drinking except for maybe a day or 2 ago, and at that point it was only half a bottle of beer. Patient denies drinking other than that since he was discharged on 09/06. CIWA score 13. Review of systems otherwise negative except for what is mentioned above. Exam Vital Signs Temp Pulse Resp BP Pulse Ox O2 Del Method O2 Flow Rate 97.0 F 57 L 18 97/61 94 L Room Air 6 09/11/24 08:00 09/11/24 08:00 09/11/24 08:00 09/11/24 08:00 09/11/24 08:00 09/11/24 08:00 09/10/24 13:44 Narrative Exam Physical Exam: General: Alert, no acute distress. Anxious appearing. Skin: Warm, dry, intact, no obvious rash. Head: Normocephalic, atraumatic. Eye: Normal conjunctiva, PERRL. Cardiovascular: Regular rate and rhythm, no murmur, +S1/S2. Patient tender to auscultation of heart. Respiratory: Lungs are clear to auscultation, respirations unlabored, no crackles, no wheezing. Abnormal breathing pattern upon auscultation, but not observed patient is speaking. Gastrointestinal: Soft, tender, non-distended. Guarding present to light percussion and light touch. Extremities: No edema, no cyanosis, no clubbing. 2+ radial pulse bilaterally, 2+ pedal pulse bilaterally. Neuro: No focal deficits observed. Conversant, moving all extremities. Low amplitude, high frequency tremors. Poor coordination with moving hands from pronation to supination. Psychiatric: Anxious, appropriate affect. Objective Labs 09/11/24 04:53 09/11/24 04:53 Labs: Laboratory Results - last 24 hr 09/10/24 09/10/24 09/10/24 13:30 14:35 22:14 WBC 4.3 3.7 L RBC 3.39 L 3.61 L Hgb 11.5 L 12.2 L Hct 33.6 L 35.4 L MCV 99 98 MCH 33.9 33.8 MCHC 34.2 34.5 RDW Std Deviation 51.1 H 49.8 H Plt Count 263 D 253 Neut % (Auto) 39 37 Lymph % (Auto) 46 51 H Cascade % (Auto) 13 H 9 Eos % (Auto) 1 1 Baso % (Auto) 1 1 Neut # (Auto) 1.7 L 1.4 L Lymph # (Auto) 2.0 1.9 Cascade # (Auto) 0.5 0.3 Eos # (Auto) 0.0 0.0 Baso # (Auto) 0.1 0.1 Immature Gran # (Auto) 0.01 H 0.00 Absolute Nucleated RBC 0.00 0.00 Immature Gran % 0 0 Nucleated RBC % 0 0 PT 12.1 INR 1.1 APTT 31.4 Sodium 138 Potassium 3.7 Chloride 105 Carbon Dioxide 19.0 L Anion Gap 14 BUN 7 L Creatinine 0.9 Estim Creat Clear Calc 95.2 eGFR > 60 BUN/Creatinine Ratio 8 L Glucose 113 H Calculated Osmolality 274 L Calcium 8.5 Corrected Calcium 8.5 Phosphorus Magnesium 1.5 L Total Bilirubin 0.3 AST 61 H ALT 42 Alkaline Phosphatase 144 H Troponin I < 0.002 B-Natriuretic Peptide < 20 Total Protein 6.7 Albumin 4.4 Globulin 2.3 Albumin/Globulin Ratio 1.9 Lipase 29 Urine Opiates Screen Negative Urine Fentanyl Screen Negative Ur Barbiturates Screen Negative U Amphetamin/Meth Scrn Negative U Benzodiazepines Scrn Positive A U Cocaine Metab Screen Negative U Marijuana (THC) Screen Negative Ethyl Alcohol 330.2 H 09/11/24 04:53 WBC 3.7 L RBC 3.23 L Hgb 11.1 L Hct 32.3 L MCV 100 MCH 34.4 MCHC 34.4 RDW Std Deviation 50.4 H Plt Count 247 Neut % (Auto) 29 L Lymph % (Auto) 50 [place] % (Auto) 16 H Eos % (Auto) 3 Baso % (Auto) 3 H Neut # (Auto) 1.0 L Lymph # (Auto) 1.8 [place]ascade # (Auto) 0.6 Eos # (Auto) 0.1 Baso # (Auto) 0.1 Immature Gran # (Auto) 0.00 Absolute Nucleated RBC 0.00 Immature Gran % 0 Nucleated RBC % 0 PT 11.7 INR 1.1 APTT 30.3 Sodium 144 Potassium 4.3 D Chloride 110 H Carbon Dioxide 19.0 L Anion Gap 15 BUN 6 L Creatinine 1.0 Estim Creat Clear Calc 85.7 eGFR > 60 BUN/Creatinine Ratio 6 L Glucose 118 H Calculated Osmolality 285 Calcium 8.5 Corrected Calcium 8.5 Phosphorus 6.2 H Magnesium 3.1 H Total Bilirubin 0.4 AST 114 H ALT 51 H Alkaline Phosphatase 141 H Troponin I B-Natriuretic Peptide Total Protein 6.2 Albumin 4.0 Globulin 2.2 L Albumin/Globulin Ratio 1.8 Lipase Urine Opiates Screen Urine Fentanyl Screen Ur Barbiturates Screen U Amphetamin/Meth Scrn U Benzodiazepines Scrn U Cocaine Metab Screen U Marijuana (THC) Screen Ethyl Alcohol Quality Measures Quality Measures VTE prophylaxis Assessment & Plan Assessment Current Active Medications: Generic Name Dose Route Start Last Admin Trade Name Freq PRN Reason Stop Dose Admin Acetaminophen 650 mg 09/10/24 23:41 Acetaminophen 325 Mg Tablet PO 10/10/24 23:40 Q6H PRN Fever >100.4 or pain 1-3 Hydrocodone Bitart/Acetaminophen 1 tab 09/10/24 23:41 09/11/24 01:23 Hydrocodone/Apap 5/325 Tablet PO 09/15/24 23:40 1 tab Q4HR PRN Administration PAIN SCALE 4-10(Mod-Sev Chlordiazepoxide HCl 25 mg 09/10/24 22:00 09/11/24 05:39 Chlordiazepoxide Hcl 25 Mg Capsule PO 09/15/24 21:59 25 mg Q8HR APOORVA Administration Diazepam 5 mg 09/10/24 20:45 Diazepam Inj 5 Mg/Ml Vial 2 Ml IVP X1 PRN Breakthrough Agitation Protocol Diazepam 10 mg 09/10/24 20:45 Diazepam Inj 5 Mg/Ml Vial 2 Ml IVP X1 PRN Breakthrough Agitation Diazepam 10 mg 09/10/24 20:45 Diazepam Inj 5 Mg/Ml Vial 2 Ml IVP 09/15/24 20:44 Q2HR PRN CIWA SCORE 20-25 Diazepam 5 mg 09/10/24 20:45 Diazepam Inj 5 Mg/Ml Vial 2 Ml IVP 09/15/24 20:44 Q2HR PRN CIWA SCORE 14-19 Folic Acid 1 mg 09/11/24 09:00 09/11/24 08:45 Folic Acid 1 Mg Tablet PO 10/11/24 08:59 1 mg QDAY APOORVA Administration Ceftriaxone Sodium/Dextrose 1 gm in 50 mls @ 100 mls/hr 09/11/24 21:00 Rocephin/D5w 1gm Iv Premix IV 09/18/24 20:59 QPM APOORVA Lorazepam 1 mg 09/10/24 20:45 09/11/24 08:45 Lorazepam 0.5 Mg Tablet PO 09/15/24 20:44 1 mg Q4HR PRN Administration CIWA SCORE 7-11 Ondansetron HCl 4 mg 09/10/24 23:41 Ondansetron Inj 2 Mg/Ml Inj 2 Ml IVP 10/10/24 23:40 Q6H PRN NAUSEA OR VOMITING Protocol Pantoprazole Sodium 40 mg 09/11/24 09:00 09/11/24 08:45 Pantoprazole Inj 40 Mg Vial IVP 10/11/24 08:59 40 mg BID APOORVA Administration Thiamine HCl 100 mg 09/11/24 09:00 09/11/24 08:45 Thiamine 100 Mg Tablet PO 10/11/24 08:59 100 mg QDAY APOORVA Administration Plan Mr. Ybarra is a 29 year old male with a history of alcohol abuse with previous alcohol withdrawal, cirrhosis with varices, hemorrhoids, and previous GI bleed who presented to the ED on 09/10 for an episode of hematemsis and ground-level fall with LOC. Patient was admitted for upper/lower GI bleed and alcohol withdrawal. #Upper and lower GI bleed #Esophageal varices #Liver cirrhosis #History of hemorrhoids Patient has extensive history of esophageal varices and liver cirrhosis with previous concerns for upper GI bleed. Patient presented with complaints of hematemesis and melena. Patient stated that he only had 2 episodes of vomiting blood. Patient also stated that he had an episode of diarrhea where he saw bright red blood. On admission, hemoglobin was stable and no episode of hematemesis was observed in ED. Maddery's Score -1.9 which indicates good prognosis for alcoholic hepatitis ? Continue Protonix 80 mg IV twice daily ? Continue octreotide drip ? Continue Rocephin 1 g IV daily for SBP prophylaxis ? GI consulted, appreciate recommendations ? Avoid NSAIDs and hepatically cleared medications ? Will monitor H&H with daily CBC, transfuse if hemoglobin less than 7.0 per protocol ? Ordered D5 normal saline for fluid hydration until GI examines patient #Alcohol withdrawal #Alcohol abuse Patient has extensive history of alcohol abuse and subsequent alcohol withdrawal. During previous admission, the patient was admitted to ICU for management of alcohol withdrawal. In ED, the patient had blood alcohol level of 330.2. Patient has active signs of alcohol withdrawal, including increased anxiety, tremulousness, and auditory/visual hallucinations. ? CIWA protocol ? Librium 25 mg every 6 hours ? Thiamine 100 mg daily ? Folic acid 1 mg daily ? Seizure precautions in place #Ground level fall Patient had a ground-level fall with loss of consciousness reported. Patient had received CT head, CT cervical spine, pelvis x-ray, lumbar x-ray, all of which were negative. ? Will continue to monitor for possible symptoms secondary to fall #Abdominal pain #Constipation Patient reported significant abdominal pain on 09/11. Patient significantly tender to light palpation and light percussion. ? KUB ordered, which showed multiple air distended small bowel loops and no free air. ? Maalox suspension 30 mL one-time dose ordered ? Maalox suspension 15 mL 4 times daily as needed ordered ? [place] 06/3250 tablet every 4 hours as needed ordered #Asymptomatic bradycardia Patient noted to have bradycardia with a heart rate of 33-57 and 09/11. Patient noted to have bradycardia as well during previous hospitalization. Patient has no complaints of fatigue or shortness of breath at this time. Considering patient's alcohol withdrawal, this is an unexpected finding. ? Cardiology consulted, appreciate recommendations #Hyperphosphatemia #Hypermagnesemia Patient noted to have a phosphorus of 6.2 and magnesium of 3.1 on 09/11. Most likely due to patient not yet having bowel movements as renal function appears to be within normal limits. ? Repeat renal panel, phosphorus, magnesium in the afternoon ? Will continue to trend with daily labs DVT Prophylaxis: SCDs GI Prophylaxis: IV Protonix Bowel: N/A Diet: NPO Hirsch: N/A Lines: IV Peripheral Antibiotics: Ceftriaxone (09/11--) Code Status: FULL Reason for Hospitalization: Alcohol withdrawal & upper/lower GI bleed Other Barriers to Discharge: N/A Patient plan of care was discussed with the senior resident Dr. Prasad (PGY-2) and attending physician Dr. Shea. Avtar Harp, PGY1 Attending Provider Attestation/Addendum I attest that I was physically present for the evaluation, physical examination, lab and imaging review of the patient with the residents. I discussed the case with the residents and agree with the findings and plans of care as documented above. At bedside today, patient was complaining of abdominal pain. He also complained of pain around his back shoulder. X-ray KUB was ordered, showed gas pattern, we will start him on simethicone. CIWA score was noted to be 13 in the morning. Patient developed bradycardia with heart rate around 30s. He denied any complaints including chest pain, palpitations, shortness of breath or dizziness. EKG was obtained, showed sinus bradycardia. We will also obtain cardiology recommendation and hold his benzodiazepines. Hemoglobin stable this morning, continues to be on Protonix, octreotide and Rocephin. Awaiting EGD with GI. Continues to be on Librium, thiamine, folic acid for alcohol withdrawal, also started D5 NS. Noted to have hyperphosphatemia and hypermagnesemia, likely secondary to dehydration, we will obtain follow-up labs with IV fluids on board. No Shea MD
[2024-09-11] MEDS: DEXTROSE 5%-NS 1,000 ML 100 ML IV ×2 (11:07→22:36)
--- NOTE | 2024-09-11 11:08 | XR_ITS ---
Examination: Abdomen AP single view Technique: AP portable supine abdomen, single view Exam date and time: September 11, 2024, 1150 hours INDICATIONS: Abdominal pain today FINDINGS: Multiple air distended small bowel loops No free air Intact osseous structures IMPRESSION: Consider CT scan abdomen pelvis post intravenous contrast follow-up to exclude early small bowel obstruction
--- NOTE | 2024-09-11 14:33 | EKG_ITS ---
[facility] Test Date: 2024-09-11 Pat Name: CASA DENTON Department: [facility] Gender: Male Feeder/Folder: RTSJC : 1995 Requested By: Avtar Harp Order Number: [id number] Reading MD: Avtar Harp Measurements Intervals [place] Rate: 38 P: 39 ND: 133 QRS: 44 QRSD: 89 T: 39 QT: 468 QTc: 374 Interpretive Statements SINUS BRADYCARDIA WITH OCCASIONAL SUPRAVENTRICULAR PREMATURE COMPLEXES Compared to ECG 09/10/2024 13:51:45 Sinus rhythm no longer present /store/S0/[id number]
[2024-09-11] MEDS: MG HYD/AL HYD/SIME (Maalox Reg) SUSP 30 ML UDC PO (14:52)
--- NOTE | 2024-09-11 15:15 | PC.NURSE ---
Patient sustaining heart rate in the 30's, per hospital monitor. Dr. Fernandez at bedside. Pt will be transferred to 2nd floor due to on going sinus bradycardia. Patient continues to be asymptomatic. will continue to monitor.
--- NOTE | 2024-09-11 17:00 | PD.IMCONS ---
HPI Data of Consult Requesting Physician: No Shea MD Primary Care Provider: Kojo Barajas MD Consult Narrative Reason for consult: Hematemesis History of present illness: 29 years old male presented to the hospital with hematemesis He has history of chronic liver disease secondary to alcohol Presenting hemoglobin hematocrit was 12.2 and 35.4 which is subsequently gone down to 11.1 and 30.3 Patient also has bradycardia with heart rate ranging between 35 and 45 and he recently moved to the telemetry floor Patient underwent on 08/29/2024 upper endoscopy showed 1+ esophageal varices diffuse gastritis and gastric motility disorder On 09/06/2024 colonoscopy showed internal hemorrhoids erythematous mucosa of sigmoid colon otherwise normal colon Skippy to cecum Sigmoid colon biopsies are negative for any evidence of inflammatory bowel disease or microscopic colitis Patient has not drank since discharge from the hospital according to him cc:: cc: No Shea MD Review of Systems Review of Systems Systems Reviewed: All systems reviewed, normal except as documented Meds Home Medications and Allergies Allergies Allergy/AdvReac Type Severity Reaction Status Date / Time No Known Allergies Allergy Verified 09/10/24 13:24 Exam Vital Signs Temp Pulse Resp BP Pulse Ox O2 Del Method O2 Flow Rate 96.6 F L 43 L 18 167/93 H 97 Room Air 6 09/11/24 16:00 09/11/24 16:00 09/11/24 16:00 09/11/24 16:00 09/11/24 16:00 09/11/24 16:00 09/10/24 13:44 Constitutional Comments: Chronically ill-appearing and has a pain pain medicine seeking behavior Routine Respiratory Exam Comments: Normal to auscultation Routine Abdominal Exam Comments: Soft nontender Results Labs 09/11/24 04:53 09/11/24 15:53 Labs: Short CBC 09/10/24 09/11/24 Range/Units 22:14 04:53 WBC 3.7 L 3.7 L (3.8-10.6) Thou/mm3 Hgb 12.2 L 11.1 L (13.5-16.0) g/dL Hct 35.4 L 32.3 L (41.0-53.0) % Plt Count 253 247 (140-440) Thou/mm3 BMP 09/11/24 04:53 Sodium 144 Potassium 4.3 D Chloride 110 H Carbon Dioxide 19.0 L BUN 6 L Creatinine 1.0 Glucose 118 H Calcium 8.5 Liver Function 09/11/24 Range/Units 04:53 Total Bilirubin 0.4 (0.3-1.2) mg/dL AST 114 H (0-34) U/L ALT 51 H (10-49) U/L Alkaline Phosphatase 141 H (46-116) U/L Albumin 4.0 (3.5-5.0) gm/dL Assessment and Plan Additional Assessment & Plan Additional Plan: # Hematemesis # Posthemorrhagic anemia # Pain abdomen # Bradycardia Plan Clear liquid diet today n.p.o. midnight tonight except p.o. meds Consent obtained for fiberoptic esophagogastroduodenoscopy with possible therapeutic intervention possible under intravenous moderate sedation scheduled for tomorrow TELMA as he had history of stool impaction with the previous hospital visit Will follow the patient Thank you very much for the opportunity to participate in the care of this patient
--- NOTE | 2024-09-11 17:04 | PC.NURSE ---
Pt transferred to 278. Report given to ASHLEY Quick.
--- NOTE | 2024-09-11 17:05 | PC.NURSE ---
Dr. Tello at [facility]. Per Dr. Tello, clear liquids diet now, and NPO after midnoc for EGD.
[2024-09-11 17:22] LABS: Albumin, Serum 4.1 gm/dL (3.5-5.0); Anion Gap 11 (7-16); BUN/Creatinine Ratio 5 Ratio (12-20); Blood Urea Nitrogen 6 mg/dL (9-23); Calcium 8.7 mg/dL (8.3-10.6); Calcium (Corrected) 8.7 mg/dL (8.5-10.1); Carbon Dioxide 23.3 mMol/L (20.0-31.0); Chloride 108 mMol/L (98-107); Creatinine (Component) 1.1 mg/dL (0.6-1.3); Estimated Creatinine Clearance 77.9 mL/min (>60); Glucose 113 mg/dL (74-106); Magnesium 1.8 mg/dL (1.6-2.6); Osmolality,Calculated 281 (275-295); Phosphorous 5.4 mg/dL (2.4-5.1); Potassium 4.3 mMol/L (3.4-5.1); Sodium 142 mMol/L (136-145); eGFR > 60 See Note
--- NOTE | 2024-09-11 17:36 | ESCONSULT_ITS ---
HPI Data of Consult Requesting Physician: No Shea MD Admitting Provider: Ally Samuel MD Attending Provider: No Shea MD Primary Care Provider: Kojo Barajas MD Consult Narrative History of present illness: History of present illness: 29 y/o M with PMHx significant for alcohol abuse with previous alcohol withdrawl, cirrhosis with varices, previous GI bleed presented with chief complaint of an episode of hematemesis and ground-level fall. The patient was recently discharged less than one week ago following admission for gastrointestinal (GI) bleeding and alcohol withdrawal. He reports resuming alcohol use shortly after discharge, though claims intake has been limited to approximately half a beer daily. He describes a recent episode of hematemesis, after which he fell and struck the sidewalk. Since that time, he has experienced melena for several days. He also reports ongoing abdominal and back pain. He denies fever, chills, chest pain, or shortness of breath. in-house cardiology is being consulted for bradycardia. ED COURSE: Labs significant for: Hemoglobin stable 12.2. Bicarb 19. Magnesium 1.5. Troponin negative. U tox positive for benzos, alcohol level 330.2. Imaging significant for: Head CT negative, C-spine CT negative, lumbar spine and pelvic x-rays negative. EKG unremarkable. Patient started octreotide drip, Protonix drip in the ED. Received 1 L bolus normal saline. PMH: Alcohol abuse with previous alcohol withdrawal, cirrhosis with varices, previous GI bleed PSH: None SH: Patient denies tobacco or illicit drug use. Reports long history of alcohol abuse, but states he is currently drinking half beer daily. Allergies:?NKDA Medications: Patient unsure of his medications. cc:: cc: No Shea MD Exam Vital Signs Temp Pulse Resp BP Pulse Ox O2 Del Method O2 Flow Rate 96.6 F L 43 L 18 167/93 H 97 Room Air 6 09/11/24 16:09/11/24 16:09/11/24 16:00 09/11/24 16:00 09/11/24 16:00 09/11/24 16:09/10/24 13:44 Narrative Exam Physical Exam: General: Alert and oriented x3, anxious Skin: Intact, Warm, no rashes. HEENT: Normocephalic, Atraumatic. Normal neck range of motion, Supple. Trachea midline. Respiratory: Lungs are clear to auscultation, Breath sounds are equal bilaterally with equal chest expansion. Cardiovascular: RRR, normal S1, S2, No murmurs. Distal pulses 2+ Abdomen: Abdomen soft, non-distended, tender, without erythema, or lesions. Normotensive bowel sounds x4. No organomagely. Musculoskeletal/Extremities: No erythema, swelling, tenderness of any joints. No edema of BLE. DP pulses +2/3 b/l. Full active ROM of all four extremities. Neurologic: NEURO: Oriented x3, cranial nerves II to XII grossly intact. Cerebellar exam ([id number], [id number]) intact. Sensation intact to gross touch along C6-T1 and L2-S1 dermatomes. No focal neurologic deficits noted. Positive tremors. Psych: Thoughts linear and responses appropriate. Results Labs 09/12/24 04:53 09/12/24 07:15 Labs: Short CBC 09/10/24 09/11/24 Range/Units 22:14 04:53 WBC 3.7 L 3.7 L (3.8-10.6) Thou/mm3 Hgb 12.2 L 11.1 L (13.5-16.0) g/dL Hct 35.4 L 32.3 L (41.0-53.0) % Plt Count 253 247 (140-440) Thou/mm3 BMP 09/11/24 09/11/24 04:53 15:53 Sodium 144 142 Potassium 4.3 D 4.3 Chloride 110 H 108 H Carbon Dioxide 19.0 L 23.3 BUN 6 L 6 L Creatinine 1.0 1.1 Glucose 118 H 113 H Calcium 8.5 8.7 Liver Function 09/11/24 09/11/24 Range/Units 04:53 15:53 Total Bilirubin 0.4 (0.3-1.2) mg/dL AST 114 H (0-34) U/L ALT 51 H (10-49) U/L Alkaline Phosphatase 141 H (46-116) U/L Albumin 4.0 4.1 (3.5-5.0) gm/dL Quality Measures Quality Measures VTE prophylaxis Medications Home Medications and Allergies Allergies Allergy/AdvReac Type Severity Reaction Status Date / Time No Known Allergies Allergy Verified 09/10/24 13:24 Visit Medications Acetaminophen (Acetaminophen 325 Mg Tablet) 650 mg PO Q6H PRN PRN Reason: Fever >100.4 or pain 1-3 Stop: 10/10/24 23:40 Hydrocodone Bitart/Acetaminophen (Hydrocodone/Apap 5/325 Tablet) 1 tab PO Q4HR PRN PRN Reason: PAIN SCALE 4-10(Mod-Sev Stop: 09/15/24 23:40 Last Admin: 09/11/24 13:46 Dose: 1 tab Al Hydrox/Mg Hydrox/Simethicone (Mg Hyd/Al Hyd/Julian (Maalox Reg) Susp 30 Ml Udc) 15 ml PO QID PRN PRN Reason: UPSET STOMACH/INDIGESTION Stop: 10/11/24 14:17 Chlordiazepoxide HCl (Chlordiazepoxide Hcl 25 Mg Capsule) 25 mg PO Q6HR [facility] Stop: 09/16/24 11:59 Last Admin: 09/11/24 11:11 Dose: 25 mg Diazepam (Diazepam Inj 5 Mg/Ml Vial 2 Ml) 5 mg IVP X1 PRN; Protocol PRN Reason: Breakthrough Agitation Diazepam (Diazepam Inj 5 Mg/Ml Vial 2 Ml) 10 mg IVP X1 PRN PRN Reason: Breakthrough Agitation Diazepam (Diazepam Inj 5 Mg/Ml Vial 2 Ml) 10 mg IVP Q2HR PRN PRN Reason: CIWA SCORE 20-25 Stop: 09/15/24 20:44 Diazepam (Diazepam Inj 5 Mg/Ml Vial 2 Ml) 5 mg IVP Q2HR PRN PRN Reason: CIWA SCORE 14-19 Stop: 09/15/24 20:44 Folic Acid (Folic Acid 1 Mg Tablet) 1 mg PO QDAY [facility] Stop: 10/11/24 08:59 Last Admin: 09/11/24 08:45 Dose: 1 mg Ceftriaxone Sodium/Dextrose (Rocephin/D5w 1gm Iv Premix) 1 gm in 50 mls @ 100 mls/hr IV QPM [facility] Stop: 09/18/24 20:59 Dextrose/Sodium Chloride (D5-Ns) 1,000 mls @ 100 mls/hr IV .Q10H [facility] Stop: 10/11/24 10:29 Last Admin: 09/11/24 11:07 Dose: 100 mls/hr Lorazepam (Lorazepam 0.5 Mg Tablet) 1 mg PO Q4HR PRN PRN Reason: CIWA SCORE 7-11 Stop: 09/15/24 20:44 Last Admin: 09/11/24 12:07 Dose: 1 mg Ondansetron HCl (Ondansetron Inj 2 Mg/Ml Inj 2 Ml) 4 mg IVP Q6H PRN; Protocol PRN Reason: NAUSEA OR VOMITING Stop: 10/10/24 23:40 Pantoprazole Sodium (Pantoprazole Inj 40 Mg Vial) 40 mg IVP BID APOORVA Stop: 10/11/24 08:59 Last Admin: 09/11/24 08:45 Dose: 40 mg Thiamine HCl (Thiamine 100 Mg Tablet) 100 mg PO QDAY [facility] Stop: 10/11/24 08:59 Last Admin: 09/11/24 08:45 Dose: 100 mg Discontinued Medications Al Hydrox/Mg Hydrox/Simethicone (Mg Hyd/Al Hyd/Julian (Maalox Reg) Susp 30 Ml Udc) 30 ml PO X1 ONE Stop: 09/11/24 14:20 Last Admin: 09/11/24 14:52 Dose: 30 ml Chlordiazepoxide HCl (Chlordiazepoxide Hcl 25 Mg Capsule) 25 mg PO Q8HR [facility] Stop: 09/15/24 21:59 Last Admin: 09/11/24 05:39 Dose: 25 mg Diazepam (Diazepam Inj 5 Mg/Ml Vial 2 Ml) 5 mg IVP X1 ONE Stop: 09/10/24 20:26 Last Admin: 09/10/24 20:51 Dose: 5 mg Folic Acid (Folic Acid 1 Mg Tablet) 1 mg PO X1 ONE Stop: 09/11/24 00:25 Last Admin: 09/11/24 01:24 Dose: 1 mg Octreotide Acetate 1,000 mcg/ (Sodium Chloride) 102 mls @ 5.1 mls/hr IV .Q20H ONE; Protocol Stop: 09/11/24 09:29 Last Admin: 09/10/24 14:40 Dose: 50 mcg/hr, 5.1 mls/hr Pantoprazole Sodium (Protonix/Ns 80mg Iv Premix) 80 mg in 100 mls @ 10 mls/hr IV X1 ONE Stop: 09/10/24 23:25 Last Admin: 09/10/24 17:24 Dose: 10 mls/hr Magnesium Sulfate (Magnesium Sulfate Ivpb) 2 gm in 50 mls @ 25 mls/hr IV X1 ONE Stop: 09/10/24 16:39 Last Infusion: 09/10/24 17:28 Dose: Infused Sodium Chloride (Ns) 1,000 mls @ 999 mls/hr IV .Q1H1M ONE Stop: 09/10/24 18:51 Last Infusion: 09/10/24 19:38 Dose: Infused Ceftriaxone Sodium/Dextrose (Rocephin/D5w 1gm Iv Premix) 1 gm in 50 mls @ 100 mls/hr IV X1 ONE Stop: 09/10/24 21:35 Last Infusion: 09/10/24 23:37 Dose: Infused Thiamine HCl 100 mg/ Sodium (Chloride) 101 mls @ 202 mls/hr IV X1 ONE Stop: 09/11/24 00:54 Last Admin: 09/11/24 01:45 Dose: 202 mls/hr Magnesium Sulfate (Magnesium Sulfate Ivpb) 4 gm in 50 mls @ 12.5 mls/hr IV X1 ONE Stop: 09/11/24 04:26 Last Admin: 09/11/24 02:35 Dose: 12.5 mls/hr Ketorolac Tromethamine (Ketorolac Inj 30 Mg/Ml Vial) 30 mg IVP X1 ONE Stop: 09/10/24 22:01 Last Admin: 09/10/24 22:27 Dose: 30 mg Lorazepam (Lorazepam 0.5 Mg Tablet) 1 mg PO X1 ONE Stop: 09/10/24 20:39 Last Admin: 09/10/24 20:50 Dose: 1 mg Morphine Sulfate (Morphine Sulf Inj 10 Mg/Ml Vial) 3 mg IVP X1 ONE Stop: 09/10/24 14:53 Last Admin: 09/10/24 15:56 Dose: 3 mg Morphine Sulfate (Morphine Sulf Inj 10 Mg/Ml Vial) 1 mg IVP X1 ONE Stop: 09/10/24 20:25 Last Admin: 09/10/24 20:48 Dose: 1 mg Octreotide Acetate (Octreotide Acet Inj 50 Mcg/Ml Vial) 50 mcg IV X1 ONE Stop: 09/10/24 13:26 Last Admin: 09/10/24 14:28 Dose: 50 mcg Ondansetron HCl (Ondansetron Inj 2 Mg/Ml Inj 2 Ml) 4 mg IVP X1 ONE; Protocol Stop: 09/10/24 14:16 Last Admin: 09/10/24 15:22 Dose: 4 mg Ondansetron HCl (Ondansetron Inj 2 Mg/Ml Inj 2 Ml) 4 mg IVP X1 ONE Stop: 09/10/24 14:53 Pantoprazole Sodium (Pantoprazole Inj 40 Mg Vial) 80 mg IVP X1 ONE Stop: 09/10/24 13:26 Last Admin: 09/10/24 14:27 Dose: 80 mg Assessment & Plan Plan 29 y/o M with PMHx significant for alcohol abuse with previous alcohol withdrawl, cirrhosis with varices, previous GI bleed presented with chief complaint of an episode of hematemesis and ground-level fall, admitted for upper GI bleed and alcohol withdrawal. Problems: #Bradycardia #Upper GI bleed #Esophageal varices #Liver cirrhosis with esophageal varices #Alcohol withdrawal #Alcohol abuse #Ground-level fall The patient presents with complaints of hematemesis and melena. He has a known history of cirrhosis with esophageal varices, previously resulting in significant GI bleeding. The primary team consulted GI (Dr. Tello), and the patient was started on octreotide and Rocephin 1g IV daily for spontaneous bacterial peritonitis (SBP) prophylaxis. Octreotide has the side effect of low heart rate and patient was noted to be bradycardic during previous hospitalizations when patient had been placed on octreotide. He also has a history of alcohol use disorder and alcohol withdrawal. At present, he appears to be in active withdrawal, exhibiting diaphoresis, visual hallucinations, anxiety, and moderate tremors. He is being managed on the CIWA protocol and is receiving Librium 25 mg daily. BP 167/93, HR 43 The patient denies shortness of breath, chest pain, or lightheadedness. EKG demonstrates NSR with occasional premature supraventricular complexes. He is not hypotensive, feel dizzy, or complain of fatigue/weakness. His bradycardia is chronic; he states that he has always had low heart rate. - We recommend having IVP 1mg atropine available to administer emergnetly if the patient should become acutely symptomatic with hypotension, altered mental status, develop signs of shock or ischemic chest discomfort, to be repeated every 3-5min for a maximum dose of 3mg, per ACLS guidelines. Treatment is indicated only if the pt is symptomatic. - Patient already taken off octreotide drip as of the morning of 09/11/2024. We recommend watching for the effect of the medicine on cardiac signs/rate as the medication is being cleared away from his body. - Keep potassium greater than 4 and magnesium greater than 2.0 times Thank you for cardiology consultation. We appreciate the opportunity to participate in this patient's care. Will continue to follow-up on this patient This case was discussed with my attending physician, Dr. Roca, tipple repairer. Zak Abebe, PGY I Attending Provider Attestation/Addendum I have personally seen and examined the patient separately on the above date of service and discussed the plan of care with the resident. I reviewed the resident Dr. Crespo consultation progress note and agree with the resident findings and plan in the note above and have also edited the documentation to reflect my findings and plan. Nish Roca M.D. Interventional Cardiology
[2024-09-11] MEDS: ACETAMINOPHEN 325 MG TABLET 650 MG PO (17:56)
[2024-09-11] MEDS: cefTRIAXone/D5w 1gm IV premix 1 GM/50 ML BAG IV (20:22)
--- NOTE | 2024-09-11 23:02 | PC.NURSE ---
spoke to MD Wade of sandostatin medication that was ordered to start, confirmed with them if they wanted to start medication even if patient heart rate was 34, stated to hold medication.
[2024-09-12] VITALS (18 sets, daily range): BP systolic 106–157; BP diastolic 65–104; PULSE 31–59; RESP 10–18; TEMP 36.1–37.4; O2SAT 93–100
[2024-09-12] MEDS: ACETAMINOPHEN 325 MG TABLET 650 MG PO ×3 (03:03→23:04)
[2024-09-12 06:02] LABS: Basophils # (Auto) 0.1 Thou/mm3 (0.0-0.2); Basophils % (Auto) 2 % (0-2.5); Eosinophils # (Auto) 0.1 Thou/mm3 (0.0-0.5); Eosinophils % (Auto) 5 % (0-10); Hematocrit 29.1 % (41.0-53.0); Hemoglobin 9.7 g/dL (13.5-16.0); Immature Granulocytes Auto 0.00 Thou/mm3 (0.00-0.00); Lymphocytes # (Auto) 1.1 Thou/mm3 (1.0-4.8); Lymphocytes % (Auto) 48 % (10-50); Mean Corpuscular HGB Conc 33.3 g/dl (31.0-37.0); Mean Corpuscular Hemoglobin 33.6 pg (25.0-35.0); Mean Corpuscular Volume 101 fL (80-100); Monocytes # (Auto) 0.4 Thou/mm3 (0.0-0.8); Monocytes % (Auto) 18 % (0-12); Neutrophils # (Auto) 0.6 Thou/mm3 (1.8-7.7); Neutrophils % (Auto) 26 % (37-80); Nucleated Red Blood Cell # 0.00 Thou/mm3 (0.00-0.00); Nucleated Red Blood Cell % 0 /100 WBC (0); Platelet Count 207 Thou/mm3 (140-440); RDW Standard Deviation 50.4 fL (35.1-43.9); Red Blood Count 2.89 Miln/mm3 (4.50-5.90)
[2024-09-12 06:14] LABS: White Blood Count 2.4 Thou/mm3 (3.8-10.6)
[2024-09-12 07:54] LABS: Alanine Aminotransferase 54 U/L (10-49); Albumin, Serum 4.1 gm/dL (3.5-5.0); Albumin/Globulin Ratio 1.8 (1.2-2.2); Alkaline Phosphatase 143 U/L (46-116); Anion Gap 8 (7-16); Aspartate Amino Transferase 69 U/L (0-34); BUN/Creatinine Ratio 5 Ratio (12-20); Bilirubin,Total 0.9 mg/dL (0.3-1.2); Blood Urea Nitrogen < 5 mg/dL (9-23); Calcium 9.4 mg/dL (8.3-10.6); Calcium (Corrected) 9.4 mg/dL (8.5-10.1); Carbon Dioxide 27.6 mMol/L (20.0-31.0); Chloride 107 mMol/L (98-107); Creatinine (Component) 1.0 mg/dL (0.6-1.3); Estimated Creatinine Clearance 93.0 mL/min (>60); Globulin 2.3 gm/dL (2.3-3.5); Glucose 98 mg/dL (74-106); Magnesium 1.8 mg/dL (1.6-2.6); Osmolality,Calculated 282 (275-295); Phosphorous 4.8 mg/dL (2.4-5.1); Potassium 3.8 mMol/L (3.4-5.1); Sodium 143 mMol/L (136-145); Total Protein 6.4 gm/dL (5.7-8.2); eGFR > 60 See Note
[2024-09-12] MEDS: FOLIC ACID 1 MG TABLET PO (08:16)
[2024-09-12] MEDS: THIAMINE 100 MG TABLET PO (08:16)
[2024-09-12] MEDS: DEXTROSE 5%-NS 1,000 ML 100 ML IV (08:17)
[2024-09-12] MEDS: Magnesium Sulfate 4 GM Ivpb 4 GM/50 ML BAG IV (09:00)
[2024-09-12] MEDS: POTASSIUM CHL 10 mEq IVPB 10 MEQ/100 ML BAG 100 MEQ IV ×2 (09:01→10:04)
[2024-09-12] MEDS: OCTREOTIDE ACET INJ 1,000 MCG in SODIUM CHLORIDE 0.9% 100 ML 5.1 MCG IV (09:25)
--- NOTE | 2024-09-12 09:47 | PC.SS ---
Late note 09-11-24: SS met with patient regarding his d/c plan. Pt is alert/oriented. Pt was admitted for Hematemesis. Pt confirmed demographic and contact information is correct on facesheet. Pt resides with both parents. Pt ambulates independently without assistance or DME. Pt is ok with all ADLs. Patient?s pharmacy of choice is [facility] on [address] Pt named his father, Abad Aden medical decision maker if he is unable. Patient?s choice is to return home upon d/c. Pt states he has attended alcohol programs in [place] and was sober for 2 months. Pt states he consumes 2 40oz beers daily for years and last time he drank was 2 days ago. SS offered pt community resources for alcohol use and pt refused stating he does not need it and can stop drinking on his own. Pt follows up at [facility]. D/C plan: Return home Next of Kin: Abad Aden, father, phone# [phone] PCP: [facility] Address: Correct on facesheet
--- NOTE | 2024-09-12 10:08 | ESPR_ITS ---
<Statement entered by Ann-Marie Prasad MD - 09/12/24 20:48> Pt is seen at bed side this morning, pt is saturating on room air. Currently continues to complain of abdominal pain. CIWA protocol is on hold due to pt's CIWA being around 3 today. Will give vallium as needed if pt exhibits signs of alcohol withdrawal. Will continue to monitor and pending further GI recs. Pt will likely needed endoscopy in the setting of acute blood loss anemia and pt's history of alcohol abuse and previous hx of esophageal varices. Patient was seen and examined by me personally. I have directly supervised and reviewed documentation by the team resident and agree with its findings with the above exceptions/and additional findings. ------- Plan of care was discussed with the attending, Dr.Bishwakarma Dr. Prasad, PGY-2 Documentation for date of: 09/12/24 Subjective Subjective Interval history: Overnight events: No acute events overnight. Patient was seen and examined at bedside. AM vitals and labs reviewed. Patient complains of pain all over his body, especially bad in his abdomen and right ankle. No swelling or erythema noted on right ankle. Patient slightly tender to passive motion of right ankle. Patient still endorses auditory hallucinations that tell him bad things but denies visual hallucinations today. Upper extremity tremors improved compared to yesterday. Patient requested Benadryl as that helped him sleep last night. CIWA score this morning 5. Replenished potassium to maintain potassium >4 and replenished magnesium to maintain >2. Octreotide fell off overnight, restarted this morning. Patient NPO, GI planning EGD today. Will continue to hold lorazepam Q4h. Will decrease Librium frequency from Q6h to Q8h. Review of systems otherwise negative except for what is mentioned above. Exam Vital Signs Temp Pulse Resp BP Pulse Ox O2 Del Method O2 Flow Rate 97.0 F 40 L 15 106/71 98 Room Air 6 09/12/24 07:57 09/12/24 07:57 09/12/24 07:57 09/12/24 07:57 09/12/24 07:57 09/12/24 07:57 09/10/24 13:44 Narrative Exam Physical Exam: General: Alert, no acute distress. Anxious appearing. Skin: Warm, dry, intact, no obvious rash. Head: Normocephalic, atraumatic. Eye: Normal conjunctiva, PERRL. Cardiovascular: Regular rate and rhythm, no murmur, +S1/S2. Patient tender to auscultation of heart. Respiratory: Lungs are clear to auscultation, respirations unlabored, no crackles, no wheezing. Gastrointestinal: Soft, tender, non-distended. Guarding present to light percussion and light touch. Extremities: No edema, no cyanosis, no clubbing. 2+ radial pulse bilaterally, 2+ pedal pulse bilaterally. Neuro: No focal deficits observed. Conversant, moving all extremities. Low amplitude, high frequency tremors. Poor coordination with moving hands from pronation to supination. Psychiatric: Anxious, appropriate affect. Objective Labs 09/12/24 04:53 09/12/24 07:15 Labs: Laboratory Results - last 24 hr 09/11/24 09/12/24 09/12/24 15:53 04:53 07:15 WBC 2.4 L RBC 2.89 L Hgb 9.7 L Hct 29.1 L MCV 101 H MCH 33.6 MCHC 33.3 RDW Std Deviation 50.4 H Plt Count 207 D Neut % (Auto) 26 L Lymph % (Auto) 48 [place] % (Auto) 18 H Eos % (Auto) 5 Baso % (Auto) 2 Neut # (Auto) 0.6 L Lymph # (Auto) 1.1 [place] # (Auto) 0.4 Eos # (Auto) 0.1 Baso # (Auto) 0.1 Immature Gran # (Auto) 0.00 Absolute Nucleated RBC 0.00 Immature Gran % 0 Nucleated RBC % 0 Sodium 142 143 Potassium 4.3 3.8 D Chloride 108 H 107 Carbon Dioxide 23.3 27.6 Anion Gap 11 8 BUN 6 L < 5 L Creatinine 1.1 1.0 Estim Creat Clear Calc 77.9 93.0 eGFR > 60 > 60 BUN/Creatinine Ratio 5 L 5 L Glucose 113 H 98 Calculated Osmolality 281 282 Calcium 8.7 9.4 Corrected Calcium 8.7 9.4 Phosphorus 5.4 H 4.8 Magnesium 1.8 1.8 Total Bilirubin 0.9 D AST 69 H ALT 54 H Alkaline Phosphatase 143 H Total Protein 6.4 Albumin 4.1 4.1 Globulin 2.3 Albumin/Globulin Ratio 1.8 Quality Measures Quality Measures VTE prophylaxis Assessment & Plan Assessment Current Active Medications: Generic Name Dose Route Start Last Admin Trade Name Freq PRN Reason Stop Dose Admin Acetaminophen 650 mg 09/11/24 17:49 09/12/24 09:13 Acetaminophen 325 Mg Tablet PO 10/10/24 23:40 650 mg Q6H PRN Administration Fever >100.4 or pain 1-8 Hydrocodone Bitart/Acetaminophen 1 tab 09/10/24 23:41 09/11/24 13:46 Hydrocodone/Apap 5/325 Tablet PO 09/15/24 23:40 1 tab Q4HR PRN Administration PAIN SCALE 4-10(Mod-Sev Al Hydrox/Mg Hydrox/Simethicone 15 ml 09/11/24 14:18 Mg Hyd/Al Hyd/Julian (Maalox Reg) Susp 30 Ml Udc PO 10/11/24 14:17 QID PRN UPSET STOMACH/INDIGESTION Chlordiazepoxide HCl 25 mg 09/11/24 12:00 09/12/24 05:16 Chlordiazepoxide Hcl 25 Mg Capsule PO 09/16/24 11:59 25 mg Q6HR APOORVA Administration Diazepam 5 mg 09/10/24 20:45 Diazepam Inj 5 Mg/Ml Vial 2 Ml IVP X1 PRN Breakthrough Agitation Protocol Diazepam 10 mg 09/10/24 20:45 Diazepam Inj 5 Mg/Ml Vial 2 Ml IVP X1 PRN Breakthrough Agitation Diazepam 10 mg 09/10/24 20:45 Diazepam Inj 5 Mg/Ml Vial 2 Ml IVP 09/15/24 20:44 Q2HR PRN CIWA SCORE 20-25 Diazepam 5 mg 09/10/24 20:45 Diazepam Inj 5 Mg/Ml Vial 2 Ml IVP 09/15/24 20:44 Q2HR PRN CIWA SCORE 14-19 Folic Acid 1 mg 09/11/24 09:00 09/12/24 08:16 Folic Acid 1 Mg Tablet PO 10/11/24 08:59 1 mg QDAY APOORVA Administration Ceftriaxone Sodium/Dextrose 1 gm in 50 mls @ 100 mls/hr 09/11/24 21:00 09/11/24 20:22 Rocephin/D5w 1gm Iv Premix IV 09/18/24 20:59 100 mls/hr QPM APOORVA Administration Dextrose/Sodium Chloride 1,000 mls @ 100 mls/hr 09/11/24 10:30 09/12/24 08:17 D5-Ns IV 10/11/24 10:29 100 mls/hr .Q10H APOORVA Administration Octreotide Acetate 1,000 mcg/ 102 mls @ 5.1 mls/hr 09/11/24 22:30 09/12/24 09:25 Sodium Chloride IV 09/16/24 22:29 50 mcg/hr .Q20H APOORVA 5.1 mls/hr Administration Protocol 50 MCG/HR Potassium Chloride 10 meq in 100 mls @ 100 mls/hr 09/12/24 08:37 09/12/24 10:04 Kcl Ivpb IV 09/12/24 10:36 100 mls/hr Q1H APOORVA Administration Magnesium Sulfate 4 gm in 50 mls @ 12.5 mls/hr 09/12/24 08:50 09/12/24 09:00 Magnesium Sulfate Ivpb IV 09/12/24 12:49 12.5 mls/hr X1 ONE Administration Lorazepam 1 mg 09/10/24 20:45 09/11/24 12:07 Lorazepam 0.5 Mg Tablet PO 09/15/24 20:44 1 mg Q4HR PRN Administration CIWA SCORE 7-11 Ondansetron HCl 4 mg 09/10/24 23:41 Ondansetron Inj 2 Mg/Ml Inj 2 Ml IVP 10/10/24 23:40 Q6H PRN NAUSEA OR VOMITING Protocol Pantoprazole Sodium 40 mg 09/11/24 09:00 09/12/24 08:16 Pantoprazole Inj 40 Mg Vial IVP 10/11/24 08:59 40 mg BID APOORVA Administration Thiamine HCl 100 mg 09/11/24 09:00 09/12/24 08:16 Thiamine 100 Mg Tablet PO 10/11/24 08:59 100 mg QDAY APOORVA Administration Plan Mr. Ybarra is a 29 year old male with a history of alcohol abuse with previous alcohol withdrawal, cirrhosis with varices, hemorrhoids, and previous GI bleed who presented to the ED on 09/10 for an episode of hematemsis and ground-level fall with LOC. Patient was admitted for upper/lower GI bleed and alcohol withdrawal. #Acute blood loss anemia, Upper vs. lower GI bleed #Esophageal varices 2/2 alcohol abuse #Liver cirrhosis #History of hemorrhoids Patient has extensive history of esophageal varices and liver cirrhosis with previous concerns for upper GI bleed. Patient presented with complaints of hematemesis and melena. Patient stated that he only had 2 episodes of vomiting blood. Patient also stated that he had an episode of diarrhea where he saw bright red blood. On admission, hemoglobin was stable and no episode of hematemesis was observed in ED. Maddery's Score -1.9 which indicates good prognosis for alcoholic hepatitis ? Continue Protonix 40 mg IV twice daily ? Continue octreotide drip ? Continue Rocephin 1 g IV daily for SBP prophylaxis ? GI consulted, appreciate recommendations ? Avoid NSAIDs ? Will monitor H&H with daily CBC, transfuse if hemoglobin less than 7.0 per protocol ? Ordered D5 normal saline for fluid hydration until GI examines patient #Alcohol withdrawal #Alcohol use disorder Patient has extensive history of alcohol abuse and subsequent alcohol withdrawal. During previous admission, the patient was admitted to ICU for management of alcohol withdrawal. In ED, the patient had blood alcohol level of 330.2. Patient has active signs of alcohol withdrawal, including increased anxiety, tremulousness, and auditory/visual hallucinations. ? CIWA protocol on hold, will give vallium as needed ? Librium 25 mg every 6 hours ? Thiamine 100 mg daily ? Folic acid 1 mg daily ? Seizure precautions in place #Ground level fall Patient had a ground-level fall with loss of consciousness reported. Patient had received CT head, CT cervical spine, pelvis x-ray, lumbar x-ray, all of which were negative. ? Will continue to monitor for possible symptoms secondary to fall #Abdominal pain #Constipation Patient reported significant abdominal pain on 09/11. Patient significantly tender to light palpation and light percussion. ? KUB ordered, which showed multiple air distended small bowel loops and no free air. ? Maalox suspension 30 mL one-time dose ordered ? Maalox suspension 15 mL 4 times daily as needed ordered ? [place] 5/325 1 tablet every 4 hours as needed ordered #Asymptomatic bradycardia Patient noted to have bradycardia with a heart rate of 33-57 and 09/11. Patient noted to have bradycardia as well during previous hospitalization. Patient has no complaints of fatigue or shortness of breath at this time. Considering patient's alcohol withdrawal, this is an unexpected finding. ? Cardiology consulted, appreciate recommendations #Hyperphosphatemia (resolved) #Hypermagnesemia Patient noted to have a phosphorus of 6.2 and magnesium of 3.1 on 09/11. Most likely due to patient not yet having bowel movements as renal function appears to be within normal limits. ? Replenished magnesium with magnesium sulfate 4g one time dose 09/12 ? Will continue to trend with daily labs DVT Prophylaxis: SCDs GI Prophylaxis: IV Protonix Bowel: N/A Diet: NPO Hirsch: N/A Lines: IV Peripheral Antibiotics: Ceftriaxone (09/11--) Code Status: FULL Reason for Hospitalization: Alcohol withdrawal & upper/lower GI bleed Other Barriers to Discharge: EGD & 5-day course of octreotide Patient plan of care was discussed with the senior resident Dr. Prasad (PGY-2) and attending physician Dr. Shea. Avtar Harp, PGY1 Attending Provider Attestation/Addendum I attest that I was physically present for the evaluation, physical examination, lab and imaging review of the patient with the residents. I discussed the case with the residents and agree with the findings and plans of care as documented above. At bedside today, patient continues to complain of pain around his abdomen and back. Heart rate is still around 40s but denies any chest pain, palpitation, lightheadedness. CIWA score this morning was 5. Continues to be on Protonix, octreotide drip and Rocephin. Plan for EGD with gastroenterology today. Continues to be on thiamine for alcohol withdrawal, holding diazepam with concern of bradycardia. Cardiology following closely, appreciate recommendations. No Shea MD
[2024-09-12] MEDS: LIDOCAINE 5% 1 PATCH TOP (10:49)
--- NOTE | 2024-09-12 11:07 | CHAP ---
Patient was depressed. I gave some words of encouragement and prayer for the upcoming procedure.
--- NOTE | 2024-09-12 11:07 | PC.SS ---
Follow up note: Pt is Octreotide dip. EGD is pending. Pt will return home upon dc.
[2024-09-12] MEDS: DIAZEPAM INJ 5 MG/ML VIAL 2 ML 2.5 MG IVP (12:41)
[2024-09-12 17:52] LABS: Path Review Blood Smear Sent to Pathologist
--- NOTE | 2024-09-12 20:30 | SUR.PHASEI ---
pt received to [facility]. report from nurse jose. denies pain and nausea. awake and alert. vss. breathing even and unlabored.
--- NOTE | 2024-09-12 20:36 | ESPR_ITS ---
Documentation for date of: 09/12/24 Subjective Subjective Interval history: 29 y/o M with PMHx significant for alcohol abuse with previous alcohol withdrawl, cirrhosis with varices, previous GI bleed presented with chief complaint of an episode of hematemesis and ground-level fall. The patient was recently discharged less than one week ago following admission for gastrointestinal bleeding and alcohol withdrawal. He reports resuming alcohol use shortly after discharge, half a beer daily. He describes a recent episode of hematemesis, after which he fell and struck the sidewalk. Since that time, he has experienced melena for several days. He also reports ongoing abdominal and back pain. He denies fever, chills, chest pain, or shortness of breath. in-house cardiology is being consulted for bradycardia. 09/12/2024 -HR was low overnight and patient was avoided further opioid pain relief for fear of dropping his HR too low. Given Benedryl and Tylenol. Restarted octreotide. Blood pressure 157/104, pulse 37, WBC 2.4, hemoglobin 9.7 (baseline of around 11), AST 69 ALT 54 and alk phos 140. Patient endorses auditory hallucinations and demonstrates upper extremity tremors. He patient. Completed EGD study today with the finding of esophageal varices, erythematous mucosa in the stomach, normal duodenum Exam Vital Signs Temp Pulse Resp BP Pulse Ox O2 Del Method O2 Flow Rate 97.2 F 37 L 12 157/104 H 100 Room Air 3 09/12/24 20:08 09/12/24 20:20 09/12/24 20:20 09/12/24 20:20 09/12/24 20:20 09/12/24 16:00 09/12/24 20:20 Narrative Exam General: Alert and oriented x3, anxious Skin: Intact, Warm, no rashes. HEENT: Normocephalic, Atraumatic. Normal neck range of motion, Supple. Trachea midline. Respiratory: Lungs are clear to auscultation, Breath sounds are equal bilaterally with equal chest expansion. Cardiovascular: RRR, normal S1, S2, No murmurs. Distal pulses 2+ Abdomen: Abdomen soft, non-distended, tender, without erythema, or lesions. Normotensive bowel sounds x4. No organomagely. Musculoskeletal/Extremities: No erythema, swelling, tenderness of any joints. No edema of BLE. DP pulses +2/3 b/l. Full active ROM of all four extremities. Neurologic: NEURO: Oriented x3, cranial nerves II to XII grossly intact. Cerebellar exam ([id number], [id number]) intact. Sensation intact to gross touch along C6-T1 and L2-S1 dermatomes. No focal neurologic deficits noted. Positive tremors. Psych: Thoughts linear and responses appropriate. Objective Labs 09/12/24 04:53 09/12/24 07:15 Labs: Laboratory Results - last 24 hr 09/12/24 09/12/24 04:53 07:15 WBC 2.4 L RBC 2.89 L Hgb 9.7 L Hct 29.1 L MCV 101 H MCH 33.6 MCHC 33.3 RDW Std Deviation 50.4 H Plt Count 207 D Neut % (Auto) 26 L Lymph % (Auto) 48 [place] % (Auto) 18 H Eos % (Auto) 5 Baso % (Auto) 2 Neut # (Auto) 0.6 L Lymph # (Auto) 1.1 [place] # (Auto) 0.4 Eos # (Auto) 0.1 Baso # (Auto) 0.1 Immature Gran # (Auto) 0.00 Absolute Nucleated RBC 0.00 Immature Gran % 0 Nucleated RBC % 0 Smear Path Review Sent to Pathologist Sodium 143 Potassium 3.8 D Chloride 107 Carbon Dioxide 27.6 Anion Gap 8 BUN < 5 L Creatinine 1.0 Estim Creat Clear Calc 93.0 eGFR > 60 BUN/Creatinine Ratio 5 L Glucose 98 Calculated Osmolality 282 Calcium 9.4 Corrected Calcium 9.4 Phosphorus 4.8 Magnesium 1.8 Total Bilirubin 0.9 D AST 69 H ALT 54 H Alkaline Phosphatase 143 H Total Protein 6.4 Albumin 4.1 Globulin 2.3 Albumin/Globulin Ratio 1.8 Quality Measures Quality Measures VTE prophylaxis Assessment & Plan Assessment Current Active Medications: Generic Name Dose Route Start Last Admin Trade Name Freq PRN Reason Stop Dose Admin Acetaminophen 650 mg 09/11/24 17:49 09/12/24 09:13 Acetaminophen 325 Mg Tablet PO 10/10/24 23:40 650 mg Q6H PRN Administration Fever >100.4 or pain 1-8 Al Hydrox/Mg Hydrox/Simethicone 15 ml 09/11/24 14:18 Mg Hyd/Al Hyd/Julian (Maalox Reg) Susp 30 Ml Udc PO 10/11/24 14:17 QID PRN UPSET STOMACH/INDIGESTION Chlordiazepoxide HCl 25 mg 09/12/24 14:00 09/12/24 13:29 Chlordiazepoxide Hcl 25 Mg Capsule PO 09/17/24 13:59 25 mg Q8HR APOORVA Administration Diazepam 5 mg 09/10/24 20:45 Diazepam Inj 5 Mg/Ml Vial 2 Ml IVP X1 PRN Breakthrough Agitation Protocol Diazepam 10 mg 09/10/24 20:45 Diazepam Inj 5 Mg/Ml Vial 2 Ml IVP X1 PRN Breakthrough Agitation Diazepam 10 mg 09/10/24 20:45 Diazepam Inj 5 Mg/Ml Vial 2 Ml IVP 09/15/24 20:44 Q2HR PRN CIWA SCORE 20-25 Diazepam 5 mg 09/10/24 20:45 Diazepam Inj 5 Mg/Ml Vial 2 Ml IVP 09/15/24 20:44 Q2HR PRN CIWA SCORE 14-19 Diphenhydramine HCl 25 mg 09/12/24 19:55 Diphenhydramine Inj 50 Mg/Ml Vial IVP 09/12/24 21:55 [id number] PRN MODERATE SEDATION Fentanyl Citrate 50 mcg 09/12/24 19:55 Fentanyl Cit Inj 50 Mcg/Ml Amp 2ml IVP 09/12/24 21:55 Q2M PRN MODERATE SEDATION Folic Acid 1 mg 09/11/24 09:00 09/12/24 08:16 Folic Acid 1 Mg Tablet PO 10/11/24 08:59 1 mg QDAY APOORVA Administration Ceftriaxone Sodium/Dextrose 1 gm in 50 mls @ 100 mls/hr 09/11/24 21:00 09/11/24 20:22 Rocephin/D5w 1gm Iv Premix IV 09/18/24 20:59 100 mls/hr QPM APOORVA Administration Octreotide Acetate 1,000 mcg/ 102 mls @ 5.1 mls/hr 09/11/24 22:30 09/12/24 09:25 Sodium Chloride IV 09/16/24 22:29 50 mcg/hr .Q20H APOORVA 5.1 mls/hr Administration Protocol 50 MCG/HR Sodium Chloride 500 mls @ 20 mls/hr 09/12/24 19:55 Ns IV 09/13/24 19:54 .Q24H ONE Lidocaine 1 patch 09/12/24 10:33 09/12/24 10:49 Lidocaine 5% 1 Patch TOP 10/12/24 10:32 1 patch UD PRN Administration Back Pain Protocol Lorazepam 1 mg 09/10/24 20:45 09/11/24 12:07 Lorazepam 0.5 Mg Tablet PO 09/15/24 20:44 1 mg Q4HR PRN Administration CIWA SCORE 7-11 Midazolam HCl 2 mg 09/12/24 19:55 Midazolam Inj 1 Mg/Ml Vial 2 Ml IVP 09/12/24 21:55 Q2M PRN Moderate Sedation Ondansetron HCl 4 mg 09/10/24 23:41 Ondansetron Inj 2 Mg/Ml Inj 2 Ml IVP 10/10/24 23:40 Q6H PRN NAUSEA OR VOMITING Protocol Pantoprazole Sodium 40 mg 09/11/24 09:00 09/12/24 08:16 Pantoprazole Inj 40 Mg Vial IVP 10/11/24 08:59 40 mg BID APOORVA Administration Thiamine HCl 100 mg 09/11/24 09:00 09/12/24 08:16 Thiamine 100 Mg Tablet PO 10/11/24 08:59 100 mg QDAY APOORVA Administration Plan 29 y/o M with PMHx significant for alcohol abuse with previous alcohol withdrawl, cirrhosis with varices, previous GI bleed presented with chief complaint of an episode of hematemesis and ground-level fall, admitted for upper GI bleed and alcohol withdrawal. Problems: #Bradycardia #Upper GI bleed #Esophageal varices #Liver cirrhosis #Alcohol withdrawal #Alcohol abuse #Ground-level fall The patient presented with complaints of hematemesis and melena. He has a known history of cirrhosis with esophageal varices, previously resulting in significant GI bleeding. The primary team consulted GI (Dr. Tello), and the patient was started on octreotide and Rocephin 1g IV daily for spontaneous bacterial peritonitis (SBP) prophylaxis. Octreotide has the side effect of low heart rate and patient was noted to be bradycardic during previous hospitalizations when patient had been placed on octreotide. He also has a history of alcohol use disorder and alcohol withdrawal. At present, he appears to be in active withdrawal, exhibiting diaphoresis, hallucinations, anxiety, and moderate tremors. He is being managed on the CIWA protocol and is receiving Librium 25 mg Q8h. Blood pressure 157/104, pulse 37, WBC 2.4, hemoglobin 9.7 (baseline of around 11), AST 69 ALT 54 and alk phos 140. EKG demonstrates NSR with occasional premature supraventricular complexes. He is not hypotensive, feel dizzy, or complain of fatigue/weakness. His bradycardia is chronic; he states that he has always had low heart rate. Recommendations: - We recommend having IVP 1mg atropine available to administer emergnetly if the patient should become acutely symptomatic with hypotension, altered mental status, develop signs of shock or ischemic chest discomfort, to be repeated every 3-5min for a maximum dose of 3mg, per ACLS guidelines. Treatment is indicated only if the pt is symptomatic. -Patient restarted on octreotide drip from last night. We recommend watching for the effect of the medicine on cardiac signs/rate as the medication can worsen bradycardia. Keep potassium greater than 4 and magnesium greater than 2.0 at all times. Heart rate is slowly improving and now in the 50s today after stopping octreotide drip which is the possible reason for the bradycardia. Keep potassium greater than 4 magnesium greater than 2.0 or problems. Thank you for cardiology consultation. We appreciate the opportunity to participate in this patient's care. Will continue to follow-up on this patient This case was discussed with my attending physician, Dr. Roca, automatic shirring machine operator. Zak Abebe, PGY I Attending Provider Attestation/Addendum I have personally seen and examined the patient separately on the above date of service and discussed the plan of care with the resident. I reviewed the resident Dr. Crespo consultation progress note and agree with the resident findings and plan in the note above and have also edited the documentation to reflect my findings and plan. Nish Roca M.D. Interventional Cardiology
--- NOTE | 2024-09-12 20:50 | SUR.PHASEI ---
report called to carlos on tele. pt tolerated ice chips. vss. breathing even and unlabored. no co pain or nausea. transported to room via rney.
[2024-09-12] MEDS: cefTRIAXone/D5w 1gm IV premix 1 GM/50 ML BAG IV (21:01)
[2024-09-13] VITALS: BP 124/78; PULSE 32; PULSE 43; RESP 13; TEMP 36.2; O2SAT 98
--- NOTE | 2024-09-13 00:04 | PC.NURSE ---
confirmed with Dr pyle of benadryl ordered even if patient HR was sustaining low 30's, lowest being HR of 31 and the concern to give medication. Dr pyle stated it is ok to give and ordered atropine PRN.
[2024-09-13] MEDS: DiphenhydrAMINE ELIX 25 MG/10 ML UDC 50 MG PO (01:10)
[2024-09-13] MEDS: ATROPINE SULF INJ 0.1 MG/ML SYR 10 ML 0.5 MG IVP (01:20)
[2024-09-13 04:00] VITALS: BP 103/65; PULSE 52; RESP 18; TEMP 36.1; O2SAT 97
[2024-09-13] MEDS: ACETAMINOPHEN 325 MG TABLET 650 MG PO ×2 (05:10→11:45)
[2024-09-13 06:25] LABS: Basophils # (Auto) 0.1 Thou/mm3 (0.0-0.2); Basophils % (Auto) 3 % (0-2.5); Eosinophils # (Auto) 0.2 Thou/mm3 (0.0-0.5); Eosinophils % (Auto) 6 % (0-10); Hematocrit 36.1 % (41.0-53.0); Hemoglobin 12.2 g/dL (13.5-16.0); Immature Granulocytes Auto 0.00 Thou/mm3 (0.00-0.00); Lymphocytes # (Auto) 1.4 Thou/mm3 (1.0-4.8); Lymphocytes % (Auto) 48 % (10-50); Mean Corpuscular HGB Conc 33.8 g/dl (31.0-37.0); Mean Corpuscular Hemoglobin 34.2 pg (25.0-35.0); Mean Corpuscular Volume 101 fL (80-100); Monocytes # (Auto) 0.5 Thou/mm3 (0.0-0.8); Monocytes % (Auto) 17 % (0-12); Neutrophils # (Auto) 0.8 Thou/mm3 (1.8-7.7); Neutrophils % (Auto) 27 % (37-80); Nucleated Red Blood Cell # 0.00 Thou/mm3 (0.00-0.00); Nucleated Red Blood Cell % 0 /100 WBC (0); Platelet Count 201 Thou/mm3 (140-440); RDW Standard Deviation 49.1 fL (35.1-43.9); Red Blood Count 3.57 Miln/mm3 (4.50-5.90)
[2024-09-13 06:26] LABS: White Blood Count 2.8 Thou/mm3 (3.8-10.6)
[2024-09-13 07:03] LABS: Alanine Aminotransferase 49 U/L (10-49); Albumin, Serum 4.3 gm/dL (3.5-5.0); Albumin/Globulin Ratio 1.7 (1.2-2.2); Alkaline Phosphatase 158 U/L (46-116); Anion Gap 12 (7-16); Aspartate Amino Transferase 73 U/L (0-34); BUN/Creatinine Ratio 4 Ratio (12-20); Bilirubin,Total 0.5 mg/dL (0.3-1.2); Blood Urea Nitrogen < 5 mg/dL (9-23); Calcium 9.2 mg/dL (8.3-10.6); Calcium (Corrected) 9.2 mg/dL (8.5-10.1); Carbon Dioxide 26.2 mMol/L (20.0-31.0); Chloride 102 mMol/L (98-107); Creatinine (Component) 1.2 mg/dL (0.6-1.3); Estimated Creatinine Clearance 71.4 mL/min (>60); Globulin 2.5 gm/dL (2.3-3.5); Glucose 136 mg/dL (74-106); Magnesium 1.3 mg/dL (1.6-2.6); Osmolality,Calculated 278 (275-295); Phosphorous 5.4 mg/dL (2.4-5.1); Potassium 4.0 mMol/L (3.4-5.1); Sodium 140 mMol/L (136-145); Total Protein 6.8 gm/dL (5.7-8.2); eGFR > 60 See Note
[2024-09-13 08:00] VITALS: BP 94/67; PULSE 45; PULSE 54; RESP 15; TEMP 36.5; O2SAT 96
[2024-09-13] MEDS: OCTREOTIDE ACET INJ 1,000 MCG in SODIUM CHLORIDE 0.9% 100 ML 5.1 MCG IV (08:36)
[2024-09-13] MEDS: Magnesium Sulfate 4 GM Ivpb 4 GM/50 ML BAG IV (08:40)
[2024-09-13] MEDS: THIAMINE 100 MG TABLET PO (08:40)
[2024-09-13] MEDS: FOLIC ACID 1 MG TABLET PO (08:41)
--- NOTE | 2024-09-13 09:22 | PD.RESPRO ---
Documentation for date of: 09/13/24 Exam Vital Signs Temp Pulse Resp BP Pulse Ox O2 Del Method O2 Flow Rate 97.7 F 54 L 15 94/67 96 Room Air 3 09/13/24 08:00 09/13/24 08:00 09/13/24 08:00 09/13/24 08:00 09/13/24 08:00 09/13/24 08:00 09/12/24 20:20 Objective Labs 09/13/24 05:22 09/13/24 05:22 Labs: Laboratory Results - last 24 hr 09/12/24 09/13/24 04:53 05:22 WBC 2.8 L RBC 3.57 L Hgb 12.2 L D Hct 36.1 L MCV 101 H MCH 34.2 MCHC 33.8 RDW Std Deviation 49.1 H Plt Count 201 Neut % (Auto) 27 L Lymph % (Auto) 48 [place] % (Auto) 17 H Eos % (Auto) 6 Baso % (Auto) 3 H Neut # (Auto) 0.8 L Lymph # (Auto) 1.4 [place] # (Auto) 0.5 Eos # (Auto) 0.2 Baso # (Auto) 0.1 Immature Gran # (Auto) 0.00 Absolute Nucleated RBC 0.00 Immature Gran % 0 Nucleated RBC % 0 Smear Path Review Sent to Pathologist Sodium 140 Potassium 4.0 Chloride 102 Carbon Dioxide 26.2 Anion Gap 12 BUN < 5 L Creatinine 1.2 Estim Creat Clear Calc 71.4 eGFR > 60 BUN/Creatinine Ratio 4 L Glucose 136 H Calculated Osmolality 278 Calcium 9.2 Corrected Calcium 9.2 Phosphorus 5.4 H Magnesium 1.3 L Total Bilirubin 0.5 AST 73 H ALT 49 Alkaline Phosphatase 158 H Total Protein 6.8 Albumin 4.3 Globulin 2.5 Albumin/Globulin Ratio 1.7 Quality Measures Quality Measures VTE prophylaxis Assessment & Plan Assessment Current Active Medications: Generic Name Dose Route Start Last Admin Trade Name Freq PRN Reason Stop Dose Admin Acetaminophen 650 mg 09/11/24 17:49 09/13/24 05:10 Acetaminophen 325 Mg Tablet PO 10/10/24 23:40 650 mg Q6H PRN Administration Fever >100.4 or pain 1-8 Al Hydrox/Mg Hydrox/Simethicone 15 ml 09/11/24 14:18 Mg Hyd/Al Hyd/Julian (Maalox Reg) Susp 30 Ml Udc PO 10/11/24 14:17 QID PRN UPSET STOMACH/INDIGESTION Atropine Sulfate 0.5 mg 09/13/24 01:02 09/13/24 01:20 Atropine Sulf Inj 0.1 Mg/Ml Syr 10 Ml IVP 0.5 mg Q1H PRN Administration BRADYCARDIA Chlordiazepoxide HCl 25 mg 09/12/24 14:00 09/13/24 05:09 Chlordiazepoxide Hcl 25 Mg Capsule PO 09/17/24 13:59 25 mg Q8HR APOORVA Administration Diazepam 5 mg 09/10/24 20:45 Diazepam Inj 5 Mg/Ml Vial 2 Ml IVP X1 PRN Breakthrough Agitation Protocol Diazepam 10 mg 09/10/24 20:45 Diazepam Inj 5 Mg/Ml Vial 2 Ml IVP X1 PRN Breakthrough Agitation Diazepam 10 mg 09/10/24 20:45 Diazepam Inj 5 Mg/Ml Vial 2 Ml IVP 09/15/24 20:44 Q2HR PRN CIWA SCORE 20-25 Diazepam 5 mg 09/10/24 20:45 Diazepam Inj 5 Mg/Ml Vial 2 Ml IVP 09/15/24 20:44 Q2HR PRN CIWA SCORE 14-19 Folic Acid 1 mg 09/11/24 09:00 09/13/24 08:41 Folic Acid 1 Mg Tablet PO 10/11/24 08:59 1 mg QDAY APOORVA Administration Ceftriaxone Sodium/Dextrose 1 gm in 50 mls @ 100 mls/hr 09/11/24 21:00 09/12/24 21:01 Rocephin/D5w 1gm Iv Premix IV 09/18/24 20:59 100 mls/hr QPM APOORVA Administration Octreotide Acetate 1,000 mcg/ 102 mls @ 5.1 mls/hr 09/11/24 22:30 09/13/24 08:36 Sodium Chloride IV 09/15/24 22:29 50 mcg/hr .Q20H APOORVA 5.1 mls/hr Administration Protocol 50 MCG/HR Magnesium Sulfate 4 gm in 50 mls @ 12.5 mls/hr 09/13/24 07:43 09/13/24 08:40 Magnesium Sulfate Ivpb IV 09/13/24 11:42 12.5 mls/hr X1 ONE Administration Magnesium Sulfate 4 gm in 50 mls @ 12.5 mls/hr 09/13/24 15:30 Magnesium Sulfate Ivpb IV 09/13/24 19:29 X1 ONE Lidocaine 1 patch 09/12/24 10:33 09/12/24 10:49 Lidocaine 5% 1 Patch TOP 10/12/24 10:32 1 patch UD PRN Administration Back Pain Protocol Lorazepam 1 mg 09/10/24 20:45 09/11/24 12:07 Lorazepam 0.5 Mg Tablet PO 09/15/24 20:44 1 mg Q4HR PRN Administration CIWA SCORE 7-11 Ondansetron HCl 4 mg 09/10/24 23:41 Ondansetron Inj 2 Mg/Ml Inj 2 Ml IVP 10/10/24 23:40 Q6H PRN NAUSEA OR VOMITING Protocol Pantoprazole Sodium 40 mg 09/11/24 09:00 09/13/24 08:41 Pantoprazole Inj 40 Mg Vial IVP 10/11/24 08:59 40 mg BID APOORVA Administration Thiamine HCl 100 mg 09/11/24 09:00 09/13/24 08:40 Thiamine 100 Mg Tablet PO 10/11/24 08:59 100 mg QDAY APOORVA Administration
--- NOTE | 2024-09-13 10:41 | ESDS_ITS ---
<Statement entered by Julianna Galaviz DO - 09/13/24 17:46> I, Julianna Galaviz DO, attest that I was physically present for the louise portions of the service and evaluated the patient with the resident and I reviewed and discussed the case with the resident and agree with the resident's findings and plans of care as documented above <Statement entered by Ann-Marie Prasad MD - 09/13/24 17:20> Patient was seen and examined by me personally. I have directly supervised and reviewed documentation by the team resident and agree with its findings. ------- Plan of care was discussed with the attending, Dr. Guillaume Prasad, PGY-2 Planned Discharge Date 09/13/24 DS: Providers Provider Date of admission: 09/10/24 23:11 Primary care physician: Kojo Barajas MD Admitting Provider: Ally Samuel MD Attending Provider on Admission: No Shea MD Consults: 09/10/24 23:45 Consult to Gastroenterology Routine Comment: Hematemesis, hx of varices Consulting Provider: Virgilio Tello 09/11/24 15:20 Consult to Cardiology Urgent Comment: Bradycardia Consulting Provider: Nish Roca Attending Provider on DC: RESIDENT Ervin Discharging Provider: RESIDENT Ervin Anticipated date of discharge: 09/13/24 DS: Diagnosis Problem List Completed Was Problem List Reviewed/Reconciled?: Yes Hospital Course Hospital Course Hospital course: Reason for hospitalization:?Upper GI bleed and alcohol withdrawal Summary: Patient is a 29-year-old male with a past medical history significant for alcohol abuse, liver cirrhosis with esophageal varices and repeat hospitalizations due to alcohol withdrawal, presented to [facility] ED on 09/10 after an episode of hematemesis and ground-level fall. The patient was admitted for alcohol withdrawal and further management of GI bleed. The patient was recently discharged from [facility] on 09/06 for alcohol withdrawal that required ICU level care. On admission Pt's CIWA was above 10 and pt was started CIWA protocol. Pt underwent EGD and findings were consistent with esophageal varices without active bleeding, patient was started on an octreotide drip and Protonix drip and transitioned to PO pantropazole BID. Pt's alcohol withdrawal symptoms continued to improve, imgaing was negative for acute fractures. During hospitalization, Pt was bradycardic without symptoms, cardiology was consulted for asymptomatic bradycardia, Per cardio recs pt's bradycardia is likely secondary to polypharmacy therefore he was cleared to be discharged from cardiology. Patient is hemodynamically cleared, CIWA protocol has been discontinued for 24 hours, pt is able to tolerate oral diet and ambulate. Pt is cleared to be discharged home to self care from GI and Cardiology. Pt is strongly counseled repeatedly to on abstain from alcohol and provided resources. Discharge Recommendations: - Follow up with PCP within 1 week of discharge - Continue rest of medications as previously prescribed - Return to the ED or call EMS if symptoms return and/or worsen - We highly recommend cessation of alcohol use - Avoid NSAID use due to gastritis - Please take pantopralzole twice daily and magnesium tablets If you don't have a PCP, you can make an appointment at the [facility]: [address] [employer], [place] [id number] Hospital Diagnoses: #Upper and lower GI bleed #Esophageal varices #Liver cirrhosis #History of hemorrhoids #Alcohol withdrawal #Alcohol abuse #Ground level fall #Abdominal pain #Constipation #Asymptomatic bradycardia #Hyperphosphotemia #Hypermagnesemia Avtar Harp, PGY-1 Status at Discharge Overall status at discharge: patient is back to baseline Time Spent with Patient Time attestation: Total time spent providing and/or coordinating discharge services: Time spent: Greater than 30 minutes Exam Vital Signs Temp Pulse Resp BP Pulse Ox O2 Del Method O2 Flow Rate 97.7 F 54 L 15 94/67 96 Room Air 3 09/13/24 08:00 09/13/24 08:00 09/13/24 08:00 09/13/24 08:00 09/13/24 08:00 09/13/24 08:00 09/12/24 20:20 Narrative Exam Physical Exam: General: Alert, no acute distress. Anxious appearing. Skin: Warm, dry, intact, no obvious rash. Head: Normocephalic, atraumatic. Eye: Normal conjunctiva, PERRL. Cardiovascular: Bradycardic rate and rhythm, no murmur, +S1/S2. Patient tender to auscultation of heart. Respiratory: Lungs are clear to auscultation, respirations unlabored, no crackles, no wheezing. Gastrointestinal: Soft, tender to light touch diffusely, non-distended. No guarding or rebound tenderness. Extremities: No edema, no cyanosis, no clubbing. 2+ radial pulse bilaterally, 2+ pedal pulse bilaterally. Neuro: No focal deficits observed. Conversant, moving all extremities. Low amplitude, high frequency tremors. Poor coordination with moving hands from pronation to supination. Psychiatric: Anxious, appropriate affect. Discharge Plan Plan Patient Disposition: HOME (Self Care) Patient condition on transfer: Stable Care Plan Goals: -Follow up with PCP within 1 week of discharge, if you do not have a primary care physician you can come see us at the [facility] by calling [phone] -Please take pantoprazole twice daily -Please avoid taking NSAID as they can cause gastritis -Continue rest of medications as previously prescribed -Return to the ED or call EMS if symptoms return and/or worsen Prescriptions/Referrals Prescriptions/Med Rec: New lidocaine 5 % Adhesive Patch,Medicated 1 patch top UD PRN (Reason: Back Pain) 5 Days Qty: 5 0RF magnesium oxide 400 mg (241.3 mg magnesium) tablet 400 mg PO QDAY Qty: 4 0RF Continued polyethylene glycol 3350 [Miralax] 17 gram powder in packet 17 g PO QDAY 30 Days Qty: 30 0RF Rx Instructions: Take one packet by mouth every day sennosides [Senokot] 8.6 mg tablet 8.6 mg PO BID 30 Days Qty: 60 0RF Rx Instructions: Take one tablet by mouth twice a day pantoprazole [Protonix] 40 mg tablet,delayed release (DR/EC) 40 mg PO BID 30 Days Qty: 60 3RF Rx Instructions: Take one tablet by mouth twice a day Discontinued dicyclomine 10 mg capsule 10 mg PO QID PRN (Reason: abdominal pain) 30 Days Qty: 90 2RF Rx Instructions: Take one tablet as needed up to four times a day chlordiazepoxide HCl 25 mg capsule 25 mg PO QID MDD 4 tablets 30 Days Qty: 120 0RF Rx Instructions: Take one tablet by mouth four times a day Referrals: Kojo Barajas MD [Primary Care Provider] - Patient/Caregiver Discharge Instructions Education Materials: Tests for Liver Disease, Upper GI Endoscopy, Understanding Gastritis, Signs of Alcohol Addiction ..., The Impact of Alcoholism, Alcoholism: Getting Help, Alcohol Withdrawal: What to Expect, Addiction Ask These Questions, Addiction: Getting Help, Addiction: Your Treatment Options, ED Cirrhosis Print Language: Romanian Stand Alone Forms: Claire Award Info., Patient Portal Info Letter Discharge Order Discharge Orders: Discharge (Routine); Ordered 09/13/24 Ordered By: Ann-Marie Prasad Quality Discharge Quality Measures none
[2024-09-13 12:00] VITALS: BP 106/65; PULSE 54; PULSE 55; RESP 16; TEMP 36.2; O2SAT 97
[2024-09-13 14:59] VITALS: BP 121/82; PULSE 60; RESP 16; TEMP 36.5; O2SAT 96
--- NOTE | 2024-09-13 17:41 | ESPR_ITS ---
Documentation for date of: 09/13/24 Subjective Subjective Interval history: 29 y/o M with PMHx significant for alcohol abuse with previous alcohol withdrawl, cirrhosis with varices, previous GI bleed presented with chief complaint of an episode of hematemesis and ground-level fall. The patient was recently discharged less than one week ago following admission for gastrointestinal bleeding and alcohol withdrawal. He reports resuming alcohol use shortly after discharge, half a beer daily. He describes a recent episode of hematemesis, after which he fell and struck the sidewalk. Since that time, he has experienced melena for several days. He also reports ongoing abdominal and back pain. He denies fever, chills, chest pain, or shortness of breath. in-house cardiology is being consulted for bradycardia. 09/12/2024 -HR was low overnight and patient was avoided further opioid pain relief for fear of dropping his HR too low. Given Benedryl and Tylenol. Restarted octreotide. Blood pressure 157/104, pulse 37, WBC 2.4, hemoglobin 9.7 (baseline of around 11), AST 69 ALT 54 and alk phos 140. Patient endorses auditory hallucinations and demonstrates upper extremity tremors. He patient. Completed EGD study today with the finding of esophageal varices, erythematous mucosa in the stomach, normal duodenum 09/13/2024 -Patient complains of generalized body aches, focus of pain in epigastric area. Due to low HR, patient is contraindicated for opoid pain relief. So far, his pain has been ameliorated with acetaminophen and benedryl last night which patient reported to have aided him sleep. At midnight, pt's heart rate was recorded to be 31 and 32 and patient was given 0.5mg of atropine per ACLS protocol for bradycardia. Patient continued on octreotide drip. BP now 121/82, pulse 60, WBC 2.8, Hgb 12.2, and Mg 1.3, pt was given 4g Mg IV x2. Exam Vital Signs Temp Pulse Resp BP Pulse Ox O2 Del Method O2 Flow Rate 97.7 F 60 16 121/82 96 Room Air 3 09/13/24 14:59 09/13/24 14:59 09/13/24 14:59 09/13/24 14:59 09/13/24 14:59 09/13/24 14:59 09/12/24 20:20 Narrative Exam General: Alert and oriented x3, anxious Skin: Intact, Warm, no rashes. HEENT: Normocephalic, Atraumatic. Normal neck range of motion, Supple. Trachea midline. Respiratory: Lungs are clear to auscultation, Breath sounds are equal bilaterally with equal chest expansion. Cardiovascular: RRR, normal S1, S2, No murmurs. Distal pulses 2+ Abdomen: Abdomen soft, non-distended, tender, without erythema, or lesions. Normotensive bowel sounds x4. No organomagely. Musculoskeletal/Extremities: No erythema, swelling, tenderness of any joints. No edema of BLE. DP pulses +2/3 b/l. Full active ROM of all four extremities. Neurologic: NEURO: Oriented x3, cranial nerves II to XII grossly intact. Cerebellar exam ([id number], [id number]) intact. Sensation intact to gross touch along C6-T1 and L2-S1 dermatomes. No focal neurologic deficits noted. Positive tremors. Psych: Thoughts linear and responses appropriate. Objective Labs 09/13/24 05:22 09/13/24 05:22 Labs: Laboratory Results - last 24 hr 09/12/24 09/13/24 04:53 05:22 WBC 2.8 L RBC 3.57 L Hgb 12.2 L D Hct 36.1 L MCV 101 H MCH 34.2 MCHC 33.8 RDW Std Deviation 49.1 H Plt Count 201 Neut % (Auto) 27 L Lymph % (Auto) 48 [place] % (Auto) 17 H Eos % (Auto) 6 Baso % (Auto) 3 H Neut # (Auto) 0.8 L Lymph # (Auto) 1.4 [place] # (Auto) 0.5 Eos # (Auto) 0.2 Baso # (Auto) 0.1 Immature Gran # (Auto) 0.00 Absolute Nucleated RBC 0.00 Immature Gran % 0 Nucleated RBC % 0 Smear Path Review Sent to Pathologist Sodium 140 Potassium 4.0 Chloride 102 Carbon Dioxide 26.2 Anion Gap 12 BUN < 5 L Creatinine 1.2 Estim Creat Clear Calc 71.4 eGFR > 60 BUN/Creatinine Ratio 4 L Glucose 136 H Calculated Osmolality 278 Calcium 9.2 Corrected Calcium 9.2 Phosphorus 5.4 H Magnesium 1.3 L Total Bilirubin 0.5 AST 73 H ALT 49 Alkaline Phosphatase 158 H Total Protein 6.8 Albumin 4.3 Globulin 2.5 Albumin/Globulin Ratio 1.7 Quality Measures Quality Measures none Assessment & Plan Assessment Current Active Medications: Generic Name Dose Route Start Last Admin Trade Name Freq PRN Reason Stop Dose Admin Acetaminophen 650 mg 09/11/24 17:49 09/12/24 09:13 Acetaminophen 325 Mg Tablet PO 10/10/24 23:40 650 mg Q6H PRN Administration Fever >100.4 or pain 1-8 Al Hydrox/Mg Hydrox/Simethicone 15 ml 09/11/24 14:18 Mg Hyd/Al Hyd/Julian (Maalox Reg) Susp 30 Ml Udc PO 10/11/24 14:17 QID PRN UPSET STOMACH/INDIGESTION Chlordiazepoxide HCl 25 mg 09/12/24 14:00 09/12/24 13:29 Chlordiazepoxide Hcl 25 Mg Capsule PO 09/17/24 13:59 25 mg Q8HR APOORVA Administration Diazepam 5 mg 09/10/24 20:45 Diazepam Inj 5 Mg/Ml Vial 2 Ml IVP X1 PRN Breakthrough Agitation Protocol Diazepam 10 mg 09/10/24 20:45 Diazepam Inj 5 Mg/Ml Vial 2 Ml IVP X1 PRN Breakthrough Agitation Diazepam 10 mg 09/10/24 20:45 Diazepam Inj 5 Mg/Ml Vial 2 Ml IVP 09/15/24 20:44 Q2HR PRN CIWA SCORE 20-25 Diazepam 5 mg 09/10/24 20:45 Diazepam Inj 5 Mg/Ml Vial 2 Ml IVP 09/15/24 20:44 Q2HR PRN CIWA SCORE 14-19 Diphenhydramine HCl 25 mg 09/12/24 19:55 Diphenhydramine Inj 50 Mg/Ml Vial IVP 09/12/24 21:55 [id number] PRN MODERATE SEDATION Fentanyl Citrate 50 mcg 09/12/24 19:55 Fentanyl Cit Inj 50 Mcg/Ml Amp 2ml IVP 09/12/24 21:55 Q2M PRN MODERATE SEDATION Folic Acid 1 mg 09/11/24 09:00 09/12/24 08:16 Folic Acid 1 Mg Tablet PO 10/11/24 08:59 1 mg QDAY APOORVA Administration Ceftriaxone Sodium/Dextrose 1 gm in 50 mls @ 100 mls/hr 09/11/24 21:00 09/11/24 20:22 Rocephin/D5w 1gm Iv Premix IV 09/18/24 20:59 100 mls/hr QPM APOORVA Administration Octreotide Acetate 1,000 mcg/ 102 mls @ 5.1 mls/hr 09/11/24 22:30 09/12/24 09:25 Sodium Chloride IV 09/16/24 22:29 50 mcg/hr .Q20H APOORVA 5.1 mls/hr Administration Protocol 50 MCG/HR Sodium Chloride 500 mls @ 20 mls/hr 09/12/24 19:55 Ns IV 09/13/24 19:54 .Q24H ONE Lidocaine 1 patch 09/12/24 10:33 09/12/24 10:49 Lidocaine 5% 1 Patch TOP 10/12/24 10:32 1 patch UD PRN Administration Back Pain Protocol Lorazepam 1 mg 09/10/24 20:45 09/11/24 12:07 Lorazepam 0.5 Mg Tablet PO 09/15/24 20:44 1 mg Q4HR PRN Administration CIWA SCORE 7-11 Midazolam HCl 2 mg 09/12/24 19:55 Midazolam Inj 1 Mg/Ml Vial 2 Ml IVP 09/12/24 21:55 Q2M PRN Moderate Sedation Ondansetron HCl 4 mg 09/10/24 23:41 Ondansetron Inj 2 Mg/Ml Inj 2 Ml IVP 10/10/24 23:40 Q6H PRN NAUSEA OR VOMITING Protocol Pantoprazole Sodium 40 mg 09/11/24 09:00 09/12/24 08:16 Pantoprazole Inj 40 Mg Vial IVP 10/11/24 08:59 40 mg BID APOORVA Administration Thiamine HCl 100 mg 09/11/24 09:00 09/12/24 08:16 Thiamine 100 Mg Tablet PO 10/11/24 08:59 100 mg QDAY APOORVA Administration Plan 29 y/o M with PMHx significant for alcohol abuse with previous alcohol withdrawl, cirrhosis with varices, previous GI bleed presented with chief complaint of an episode of hematemesis and ground-level fall, admitted for upper GI bleed and alcohol withdrawal. Problems: #Bradycardia #Upper GI bleed #Esophageal varices #Liver cirrhosis #Alcohol withdrawal #Alcohol abuse #Ground-level fall The patient presented with complaints of hematemesis and melena. He has a known history of cirrhosis with esophageal varices, previously resulting in significant GI bleeding. The primary team consulted GI (Dr. Tello), and the patient was started on octreotide and Rocephin 1g IV daily for spontaneous bacterial peritonitis (SBP) prophylaxis. Octreotide has the side effect of low heart rate and patient was noted to be bradycardic during previous hospitalizations when patient had been placed on octreotide. He also has a history of alcohol use disorder and alcohol withdrawal. At present, he appears to be in active withdrawal, exhibiting diaphoresis, hallucinations, anxiety, and moderate tremors. He is being managed on the CIWA protocol and is receiving Librium 25 mg Q8h. Blood pressure 121/82, pulse 60, WBC 2.8, hemoglobin 12.2 (baseline of around 11), AST 73 ALT 49 and alk phos 158. EKG demonstrates NSR with occasional premature supraventricular complexes. He is not hypotensive, feel dizzy, or complain of fatigue/weakness. His bradycardia is chronic; he states that he has always had low heart rate. Recommendations: - We recommend having IVP 1mg atropine available to administer emergnetly if the patient should become acutely symptomatic with hypotension, altered mental status, develop signs of shock or ischemic chest discomfort, to be repeated every 3-5min for a maximum dose of 3mg, per ACLS guidelines. Treatment is indicated only if the pt is symptomatic. -Patient on continuous infusion of octreotide since the morning of September 12.. We recommend watching for the effect of the medicine on cardiac signs/rate as the medication can worsen bradycardia. Keep potassium greater than 4 and magnesium greater than 2.0 at all times. Keep potassium greater than 4 magnesium greater than 2.0 or problems. Thank you for cardiology consultation. We appreciate the opportunity to participate in this patient's care. Will continue to follow-up on this patient This case was discussed with my attending physician, Dr. Roca, measuring machine tender. Zak Abebe, DO PGY I
--- NOTE | 2024-09-13 21:02 | ESPR_ITS ---
Documentation for date of: 09/13/24 Subjective Subjective Interval history: Late entry for the note Case discussed with the internal medicine team No need for octreotide for 5 days as we did not do any banding of the varices Okay to discharge patient home Exam Vital Signs Temp Pulse Resp BP Pulse Ox O2 Del Method O2 Flow Rate 97.7 F 60 16 121/82 96 Room Air 3 09/13/24 14:59 09/13/24 14:59 09/13/24 14:59 09/13/24 14:59 09/13/24 14:59 09/13/24 14:59 09/12/24 20:20 Objective Labs 09/13/24 05:22 09/13/24 05:22 Labs: Laboratory Results - last 24 hr 09/13/24 05:22 WBC 2.8 L RBC 3.57 L Hgb 12.2 L D Hct 36.1 L MCV 101 H MCH 34.2 MCHC 33.8 RDW Std Deviation 49.1 H Plt Count 201 Neut % (Auto) 27 L Lymph % (Auto) 48 [place] % (Auto) 17 H Eos % (Auto) 6 Baso % (Auto) 3 H Neut # (Auto) 0.8 L Lymph # (Auto) 1.4 [place] # (Auto) 0.5 Eos # (Auto) 0.2 Baso # (Auto) 0.1 Immature Gran # (Auto) 0.00 Absolute Nucleated RBC 0.00 Immature Gran % 0 Nucleated RBC % 0 Sodium 140 Potassium 4.0 Chloride 102 Carbon Dioxide 26.2 Anion Gap 12 BUN < 5 L Creatinine 1.2 Estim Creat Clear Calc 71.4 eGFR > 60 BUN/Creatinine Ratio 4 L Glucose 136 H Calculated Osmolality 278 Calcium 9.2 Corrected Calcium 9.2 Phosphorus 5.4 H Magnesium 1.3 L Total Bilirubin 0.5 AST 73 H ALT 49 Alkaline Phosphatase 158 H Total Protein 6.8 Albumin 4.3 Globulin 2.5 Albumin/Globulin Ratio 1.7 Impressions Impression: 1+ esophageal varices not large for band ligation Diffuse gastritis Okay to send the patient home on a PPI To be followed by the PCP Assessment & Plan A&P Narrative # Hematemesis # Posthemorrhagic anemia # Pain abdomen # Bradycardia Plan Clear liquid diet today n.p.o. midnight tonight except p.o. meds Consent obtained for fiberoptic esophagogastroduodenoscopy with possible therapeutic intervention possible under intravenous moderate sedation scheduled for tomorrow KUB as he had history of stool impaction with the previous hospital visit Will follow the patient Thank you very much for the opportunity to participate in the care of this patient Time Spent With Patient Time: Total time spent is greater than 50% in coordination of care (as documented) at patient's floor/unit and/or counseling patient:
== END 2024-09-13 15:00 | disposition home or self-care (01) | DRG 280 ==
LOC: SERX 17:57 → SERHOLD 23:43 → S3SX 09-11 00:58 → S2NX 09-11 16:57
PROVIDERS: Specialist; Admitting Provider Student in an Organized Health Care Education/Training Program; Emergency Provider Emergency Medicine; PCP Family Medicine; Visit Provider Internal Medicine
PROC: 0DJ08ZZ Inspection of Upper Intestinal Tract, Via Natural or Artificial Opening Endoscopic (ICD-10-PCS; CPT 43239; principal; 2024-09-12 15:00)
DX: K70.30 Alcoholic cirrhosis of liver without ascites (principal); F10.129 Alcohol abuse with intoxication, unspecified; F10.139 Alcohol abuse with withdrawal, unspecified; D62 Acute posthemorrhagic anemia; E83.39 Other disorders of phosphorus metabolism; E83.41 Hypermagnesemia; E86.0 Dehydration; I49.1 Atrial premature depolarization; I85.11 Secondary esophageal varices with bleeding; K64.8 Other hemorrhoids; K70.10 Alcoholic hepatitis without ascites; K59.00 Constipation, unspecified; Y90.8 Blood alcohol level of 240 mg/100 ml or more; R00.1 Bradycardia, unspecified; W18.30XA Fall on same level, unspecified, initial encounter; K29.71 Gastritis, unspecified, with bleeding
CPT/HCPCS: 36415; 70450; 72110; 72125; 72170; 74018; 80053; 80069; 80307; 80320; 83690; 83735; 83880; 84100; 84484; 85025; 85610; 85730; 87081; 93005; 96361; 96365; 96366; 96375; 96376; 99284; A4649; J0461; J0696; J1200; J1885; J2250; J2270; J2354; J2405; J2470; J3010; J3360; J3411; J3475; J3480; J3490; J7030; J7042; J7050; A9270; G0480

== ENCOUNTER 2024-09-24 02:43 | Emergency (ER) | payer MEDICAID, SELFPAY ==
[2024-09-24 02:52] VITALS: PULSE 106; RESP 18; O2SAT 98; BMI 27.4
[2024-09-24 03:12] VITALS: BP 116/78; PULSE 110; RESP 16; TEMP 36.6; O2SAT 96
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
--- NOTE | 2024-09-24 03:22 | XR_ITS ---
Examination: PA chest single view TECHNIQUE: Upright PA chest single view Date and time: September 24, 2024 0326 hours INDICATIONS: Shortness of breath today. FINDINGS: Normal heart size. Lungs are clear. The osseous structures are intact IMPRESSION: No active disease.
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
[2024-09-24 03:53] LABS: Basophils # (Auto) 0.0 Thou/mm3 (0.0-0.2); Basophils % (Auto) 1 % (0-2.5); Eosinophils # (Auto) 0.1 Thou/mm3 (0.0-0.5); Eosinophils % (Auto) 1 % (0-10); Hematocrit 32.8 % (41.0-53.0); Hemoglobin 11.1 g/dL (13.5-16.0); Immature Granulocytes Auto 0.02 Thou/mm3 (0.00-0.00); Lymphocytes # (Auto) 1.6 Thou/mm3 (1.0-4.8); Lymphocytes % (Auto) 25 % (10-50); Mean Corpuscular HGB Conc 33.8 g/dl (31.0-37.0); Mean Corpuscular Hemoglobin 33.3 pg (25.0-35.0); Mean Corpuscular Volume 99 fL (80-100); Monocytes # (Auto) 0.6 Thou/mm3 (0.0-0.8); Monocytes % (Auto) 9 % (0-12); Neutrophils # (Auto) 4.2 Thou/mm3 (1.8-7.7); Neutrophils % (Auto) 64 % (37-80); Nucleated Red Blood Cell # 0.00 Thou/mm3 (0.00-0.00); Nucleated Red Blood Cell % 0 /100 WBC (0); Platelet Count 307 Thou/mm3 (140-440); RDW Standard Deviation 50.8 fL (35.1-43.9); Red Blood Count 3.33 Miln/mm3 (4.50-5.90); White Blood Count 6.5 Thou/mm3 (3.8-10.6)
[2024-09-24 04:06] LABS: INR 1.1 (0.9-1.3); Partial Thromboplastin Time 24.7 Seconds (22.0-36.0); Prothrombin Time 11.9 Seconds (9.0-12.2)
[2024-09-24 04:08] LABS: Ammonia 51 uMol/L (11-32)
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
[2024-09-24 04:53] LABS: Acetaminophen < 2.0 mcg/mL (10.0-20.0); Alanine Aminotransferase 38 U/L (10-49); Albumin, Serum 4.5 gm/dL (3.5-5.0); Albumin/Globulin Ratio 1.8 (1.2-2.2); Alcohol, Blood Medical 332.2 mg/dL (0-10.0); Alkaline Phosphatase 171 U/L (46-116); Amylase 110 U/L (30-118); Anion Gap 14 (7-16); Aspartate Amino Transferase 87 U/L (0-34); BUN/Creatinine Ratio 6 Ratio (12-20); Bilirubin,Direct 0.1 mg/dL (0.0-0.3); Bilirubin,Total 0.3 mg/dL (0.3-1.2); Blood Urea Nitrogen 6 mg/dL (9-23); Calcium 9.0 mg/dL (8.3-10.6); Calcium (Corrected) 9.0 mg/dL (8.5-10.1); Carbon Dioxide 19.8 mMol/L (20.0-31.0); Chloride 114 mMol/L (98-107); Creatine Kinase 1242 U/L (34-171); Creatinine (Component) 1.0 mg/dL (0.6-1.3); Estimated Creatinine Clearance 101.3 mL/min (>60); Globulin 2.5 gm/dL (2.3-3.5); Glucose 103 mg/dL (74-106); Lipase 44 U/L (12-53); Magnesium 1.8 mg/dL (1.6-2.6); Osmolality,Calculated 291 (275-295); Potassium 3.8 mMol/L (3.4-5.1); Sodium 148 mMol/L (136-145); Total Protein 7.0 gm/dL (5.7-8.2); eGFR > 60 See Note
[2024-09-24] MEDS: SODIUM CHLORIDE 0.9% 1000 ML 1,000 ML 999 ML IV ×2 (04:56→05:41)
[2024-09-24] MEDS: ONDANSETRON INJ 2 MG/ML INJ 2 ML 4 MG IVP (04:57)
[2024-09-24 05:03] VITALS: BP 107/74; PULSE 65; RESP 19; TEMP 37; O2SAT 98
--- NOTE | 2024-09-24 05:23 | PRELIM_ITS ---
CT scan of the chest, abdomen and pelvis without intravenous contrast (axial sections with sagittal and coronal reformats) September 24, 2024 at 0408 hours Clinical History: Trauma. Comparison: No prior study is available for comparison. Findings: The lungs are clear. There is no pleural effusion or pneumothorax. The aorta is unremarkable on this noncontrast study. There is no mediastinal collection. There is no pericardial effusion. The spleen, pancreas, adrenals and kidneys are unremarkable on this noncontrast study. Mild irregular liver margins. Gallstones without evidence of acute cholecystitis. The bowel is unremarkable. The urinary bladder is unremarkable. There is no free fluid or free air. No fracture is identified. Impression: No visceral or bony injury to the chest, abdomen or pelvis. Possible cirrhosis. Report Electronically Signed By: Damaso Canseco 09/24/2024 5:22:32 AM [EST]
[2024-09-24] MEDS: DIAZEPAM INJ 5 MG/ML VIAL 2 ML 10 MG IVP (05:40)
[2024-09-24 05:50] VITALS: BP 106/75; PULSE 68; RESP 19; TEMP 37.2; O2SAT 98
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
--- NOTE | 2024-09-24 09:32 | PC.NURSE ---
called PD for officer to come out.
--- NOTE | 2024-09-24 09:40 | CHAP ---
Patient expressed gratitude for visit and prayer.
[2024-09-24 10:03] VITALS: BP 108/74; PULSE 60; RESP 18; TEMP 36.9; O2SAT 99
[2024-09-24] MEDS: MORPHINE SULF INJ 10 MG/ML VIAL 2 MG IVP (10:18)
--- NOTE | 2024-09-24 10:19 | PC.NURSE ---
officer monie here speaking with
[2024-09-24 11:41] LABS: Amphetamine/Methamp Scrn,U Negative (Negative); Barbiturate Screen,Urine Negative (Negative); Benzodiazepines Screen,Urine Positive (Negative); Benzoylecgonine Screen, Ur Negative (Negative); Fentanyl Screen,Urine Negative (Negative); Opiate Screen,Urine Negative (Negative); THC Screen,Urine Negative (Negative)
[2024-09-24] MEDS: KETOROLAC INJ 30 MG/ML VIAL IVP (12:21)
[2024-09-24] MEDS: ACETAMINOPHEN 325 MG TABLET 650 MG PO (13:29)
== END 2024-09-24 13:30 | disposition home or self-care (01) ==
PROVIDERS: Emergency Provider Emergency Medicine; PCP Specialist
DX: F10.129 Alcohol abuse with intoxication, unspecified (principal); S00.81XA Abrasion of other part of head, initial encounter; S00.83XA Contusion of other part of head, initial encounter; Y90.9 Presence of alcohol in blood, level not specified; S02.2XXA Fracture of nasal bones, initial encounter for closed fracture; Y09 Assault by unspecified means; R06.02 Shortness of breath
CPT/HCPCS: 36415; 70450; 70486; 71045; 71250; 72125; 74176; 80053; 80307; 80320; 80329; 81001; 82140; 82150; 82248; 82550; 83605; 83615; 83690; 83735; 85025; 85610; 85730; 96374; 96375; 99284; J1885; J2270; J2405; J3360; J7030; A9270; G0480

== ENCOUNTER 2024-09-24 14:35 | Outpatient (AMB) | payer MEDICAID, SELFPAY ==
[2024-09-24 15:27] VITALS: BP 116/73; PULSE 81; RESP 21; TEMP 36.8; O2SAT 95
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
== END 2024-09-24 16:16 | disposition home or self-care (01) ==
LOC: HODAHC 14:35
DX: F10.232 Alcohol dependence with withdrawal with perceptual disturbance (principal)
CPT/HCPCS: 99213; G0463

== ENCOUNTER 2024-10-11 22:59 | Emergency (ER) | payer MEDICAID, SELFPAY ==
[2024-10-11 23:05] VITALS: BP 133/96; PULSE 113; PULSE 79; RESP 15; RESP 18; TEMP 37.1; O2SAT 100; BMI 24.4
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
--- NOTE | 2024-10-11 23:29 | XR_ITS ---
Examination: CT cervical spine without contrast 2-D sagittal reconstructions 2-D coronal reconstructions 3-D reconstructions. Exam date and time:October 11, 2024 1152 hrs. Indications: Patient fell today with injury to the neck, neck pain CTDI:vol (mGy) 13.6 DLP: (mGycm) 300 Technique: Multiple 2 mm axial sections of the cervical spine have been obtained. The coronal and sagittal reconstructions have been obtained. 3-D reconstructions have been obtained. Low dose protocols were performed. One or more of the following dose reduction techniques were used; automated exposure control, adjustment of the mA and/or KV according to patient size, use of iterative reconstruction technique. Findings: Axial sections demonstrate intact base of the skull. C1 exhibit satisfactory relationship to the odontoid. No acute cervical vertebral body fracture seen. Alignment posterior spinous processes satisfactory. Impression: No acute cervical fracture.
--- NOTE | 2024-10-11 23:29 | XR_ITS ---
Examination: CT brain head without contrast. 2-D sagittal coronal reconstructions Date and time of exam:October 12, 1999 2550 hours Indications: Patient fell today with into the head, followed by head pain altered mental status CTDI: vol (mGy):40.9 DLP: (mGycm):1030 Technique: Multiple CT axial sections of the brain have been obtained, 5 mm slice thickness. Contrast has not been administered. 2-D sagittal, coronal reconstructions have been obtained Low dose protocols were performed. One or more of the following dose reduction techniques were used; automated exposure control, adjustment of the mA and/or KV according to patient size, use of iterative reconstruction technique. Findings: No significant ventricular enlargement. Intra-axial or extra-axial hemorrhage density is not seen. No mass effect or midline shift Basal cisterns are not remarkable. Fourth ventricle is midline. Cranial vault intact. Impression: Negative for acute hemorrhage, mass effect or midline shift
--- NOTE | 2024-10-11 23:29 | XR_ITS ---
Examination: AP chest single view Technique one AP portable upright chest single view Date and time: October 12, 2024, 0017 hrs. Indications: Shortness of breath today. Findings: Normal heart size. Mild vascular congestion. No lobar pneumonia or pulmonary edema. Intact osseous structures Impression: No pneumonia or pulmonary edema.
--- NOTE | 2024-10-11 23:29 | XR_ITS ---
Examination: CT chest, without intravenous contrast. CT abdomen, without intravenous contrast. CT pelvis, without intravenous contrast. 2-D sagittal and coronal reconstructions. 3-D reconstructions. Date and time of exam:October 11, 2024 1147 hrs. Indications: Patient fell today with into the chest, chest pain CTDI vol (mgy) 9.17 DLP (MGycm)707 Technique: Multiple CT images, 3.0 mm slice thickness, obtained chest, abdomen, pelvis, with the high-resolution 64 slice scanner.. Sagittal and coronal 2-D reconstructions are obtained. 3-D reconstructions Low dose protocols were performed. One or more of the following dose reduction techniques were used; automated exposure control, adjustment of the mA and/or KV according to patient size, use of iterative reconstruction technique. Findings: Thoracic aorta pulmonary arteries intact. No hemopericardium. No pneumothorax. Pneumonia versus mild pulmonary contusion at the lung bases, clinical correlation advised Sternal segments thoracic and lumbar vertebral bodies sacral segments intact Patient motion obscures rib detail, no displaced rib fractures No liver splenic or renal laceration, no perinephric hematoma Abdominal aorta intact Cholelithiasis Negative for pneumoperitoneum No free blood in the abdomen or pelvis Small fat-containing umbilical hernia Bones of the pelvis hips appear intact Urinary bladder intact, air in the urinary bladder with urinary Hirsch catheter Impression: Study is limited secondary to patient motion especially rib detail Thoracic aorta pulmonary arteries intact No pneumothorax. Pneumonia versus mild pulmonary contusion at the lung bases, clinical correlation advised No abdominal parenchymal laceration Abdominal aorta intact, no free blood in the abdomen or pelvis
[2024-10-11 23:58] LABS: Lactate (Lactic Acid) 2.4 mMol/L (0.4-2.0)
[2024-10-12] VITALS (7 sets, daily range): BP systolic 93–116; BP diastolic 55–82; PULSE 44–76; RESP 12–22; TEMP 36.5–37.2; O2SAT 95–99
[2024-10-12 00:03] LABS: Beta Hydroxybutyrate 0.0 mmol/L (<0.6)
[2024-10-12] MEDS: ONDANSETRON INJ 2 MG/ML INJ 2 ML 4 MG IVP (00:06)
[2024-10-12] MEDS: SODIUM CHLORIDE 0.9% 1000 ML 1,000 ML 999 ML IV (00:07)
[2024-10-12 00:13] LABS: Sed Rate (ESR) 11 mm/hr (0-15)
[2024-10-12 00:15] LABS: Basophils # (Auto) 0.0 Thou/mm3 (0.0-0.2); Basophils % (Auto) 1 % (0-2.5); Eosinophils # (Auto) 0.1 Thou/mm3 (0.0-0.5); Eosinophils % (Auto) 1 % (0-10); Hematocrit 34.2 % (41.0-53.0); Hemoglobin 11.5 g/dL (13.5-16.0); Immature Granulocytes Auto 0.00 Thou/mm3 (0.00-0.00); Lymphocytes # (Auto) 2.6 Thou/mm3 (1.0-4.8); Lymphocytes % (Auto) 72 % (10-50); Mean Corpuscular HGB Conc 33.6 g/dl (31.0-37.0); Mean Corpuscular Hemoglobin 32.4 pg (25.0-35.0); Mean Corpuscular Volume 96 fL (80-100); Monocytes # (Auto) 0.4 Thou/mm3 (0.0-0.8); Monocytes % (Auto) 11 % (0-12); Neutrophils # (Auto) 0.5 Thou/mm3 (1.8-7.7); Neutrophils % (Auto) 15 % (37-80); Nucleated Red Blood Cell # 0.00 Thou/mm3 (0.00-0.00); Nucleated Red Blood Cell % 0 /100 WBC (0); Platelet Count 261 Thou/mm3 (140-440); RDW Standard Deviation 53.3 fL (35.1-43.9); Red Blood Count 3.55 Miln/mm3 (4.50-5.90); White Blood Count 3.7 Thou/mm3 (3.8-10.6)
[2024-10-12 00:22] LABS: Amphetamine/Methamp Scrn,U Negative (Negative); Barbiturate Screen,Urine Negative (Negative); Benzodiazepines Screen,Urine Negative (Negative); Benzoylecgonine Screen, Ur Negative (Negative); Fentanyl Screen,Urine Negative (Negative); Opiate Screen,Urine Negative (Negative); THC Screen,Urine Negative (Negative)
[2024-10-12 00:33] LABS: Ammonia 43 uMol/L (11-32)
[2024-10-12 00:36] LABS: B-Type Natriuretic Peptide < 20 pg/mL (0-100)
[2024-10-12 00:38] LABS: Procalcitonin < 0.04 ng/ml (0.0-0.49)
[2024-10-12 00:51] LABS: Allen Test Performed/OK; Base Excess -3 (-3-3); HCO3 23 mEq/L (20-26); Inspired Oxygen, FIO2 21 %; O2 Saturation 95 % (91-98); PCO2 43 mmHg (32.0-48.0); PO2 84 mmHg (83-108); Puncture Site Right Radial; pH, Arterial 7.34 (7.35-7.45)
[2024-10-12 00:56] LABS: Acetaminophen < 2.0 mcg/mL (10.0-20.0); Alanine Aminotransferase 31 U/L (10-49); Albumin, Serum 4.8 gm/dL (3.5-5.0); Albumin/Globulin Ratio 1.6 (1.2-2.2); Alkaline Phosphatase 173 U/L (46-116); Anion Gap 17 (7-16); Aspartate Amino Transferase 65 U/L (0-34); BUN/Creatinine Ratio 6 Ratio (12-20); Bilirubin,Direct 0.1 mg/dL (0.0-0.3); Bilirubin,Total 0.3 mg/dL (0.3-1.2); Blood Urea Nitrogen < 5 mg/dL (9-23); Calcium 8.8 mg/dL (8.3-10.6); Calcium (Corrected) 8.8 mg/dL (8.5-10.1); Carbon Dioxide 21.5 mMol/L (20.0-31.0); Chloride 110 mMol/L (98-107); Creatine Kinase 142 U/L (34-171); Creatinine (Component) 0.9 mg/dL (0.6-1.3); Estimated Creatinine Clearance 99.2 mL/min (>60); Globulin 3.0 gm/dL (2.3-3.5); Glucose 98 mg/dL (74-106); Magnesium 2.2 mg/dL (1.6-2.6); Osmolality,Calculated 291 (275-295); Potassium 3.8 mMol/L (3.4-5.1); Sodium 148 mMol/L (136-145); Thyroid Stimulating Hormone 0.50 uIU/mL (0.55-4.78); Total Protein 7.8 gm/dL (5.7-8.2); Troponin I < 0.002 ng/mL (0.0-0.045); eGFR > 60 See Note
[2024-10-12 01:20] LABS: Amylase 91 U/L (30-118); C-Reactive Protein < 0.5 mg/dL (0.0-0.9); Lipase 42 U/L (12-53)
[2024-10-12 01:28] LABS: Alcohol, Blood Medical 381.2 mg/dL (0-10.0)
[2024-10-12] MEDS: RINGERS LACTATED 1000 ML 1,000 ML IV (02:29)
[2024-10-12 02:49] LABS: Reflex Lactate? Y
[2024-10-12 03:33] LABS: Lactic Acid, 3 HR 2.6 mMol/L (0.4-2.0)
[2024-10-12] MEDS: SODIUM CHLORIDE 0.9% 1000 ML 1,000 ML 250 ML IV (04:51)
--- NOTE | 2024-10-12 05:50 | PC.NURSE ---
Dr. Blackmon notified of HR 45-50, no new orders gcs 15 and currently sleeping.
[2024-10-12] MEDS: KETOROLAC INJ 30 MG/ML VIAL 15 MG IVP (07:38)
[2024-10-12 08:03] LABS: Alcohol, Blood Medical 306.2 mg/dL (0-10.0)
[2024-10-12 09:04] LABS: Lactate (Lactic Acid) 2.4 mMol/L (0.4-2.0)
--- NOTE | 2024-10-12 09:52 | PD.EDADDENDU ---
Emergency Room Addendum Addendum Narrative: 0600: Care assumed from Dr. Blackmon, the previous shift emergency physician. Past medical, surgical, social and family history reviewed. Vitals and home medications reviewed. I will assume the care of the patient at this time, pending repeat alcohol level, reassessment, and final disposition. Please refer to the emergency department record for history and examination from initial visit.?The following addendum documentation note is intended to reflect any pending information, findings, or radiology results not included in the patient?s initial chart. Patient has remained stable through ED course. Will DC home.
[2024-10-12 12:03] LABS: Reflex Lactate? Y
[2024-10-12 12:36] LABS: Lactic Acid, 3 HR 2.6 mMol/L (0.4-2.0)
--- NOTE | 2024-10-12 13:44 | PC.SS ---
Bedside nurse Jorge stated that patient will need transportation home at address on facesheet. [employer]ODUCT [employer]ESSIONAL coordinated transportation with EMILY RODRIGES 13:48, PRODUCT S[employer] PROFESSIONAL notified bedside nurse of ETA.
[2024-10-12] MEDS: MIDAZOLAM INJ 1 MG/ML VIAL 2 ML 2 MG IVP (13:46)
== END 2024-10-12 14:12 | disposition home or self-care (01) ==
PROVIDERS: Emergency Medicine; Emergency Provider Family Medicine
DX: F10.129 Alcohol abuse with intoxication, unspecified (principal); Y90.9 Presence of alcohol in blood, level not specified
CPT/HCPCS: 51702; 36415; 36600; 70450; 71045; 71250; 72125; 74176; 80053; 80307; 80320; 80329; 81001; 82010; 82140; 82150; 82248; 82550; 82803; 83605; 83690; 83735; 83880; 84145; 84443; 84484; 85025; 85652; 86140; 87040; 87400; 87811; 93005; 96361; 96374; 96375; 99284; A4314; J1885; J2250; J2405; J7030; J7120; G0480

== ENCOUNTER 2024-11-01 00:39 | Inpatient (IN) | payer MEDICAID, SELFPAY ==
[2024-11-01] VITALS (11 sets, daily range): BP systolic 109–141; BP diastolic 62–96; PULSE 31–75; RESP 12–18; TEMP 36.1–36.7; O2SAT 96–100; BMI 24.4; BMI 23.6
--- NOTE | 2024-11-01 01:05 | EDNOTE_ITS ---
ED Alcohol RME/HPI General Chief Complaint: Alcohol Stated Complaint: ALCOHOL WITHDRAWL GENERALIZED PAIN Time Seen by Provider: 11/01/24 01:02 Arrival date/time: 11/01/24 00:39 RME / HPI RME / HPI narrative: DR. GOLDBERG MAIN ED EVALUATION: 29 y/o male with Hx of Alcohol Abuse and Alcohol Withdrawal presents to ED c/o nausea, vomiting, and shaking x 1 day. Patient last consumed alcohol yesterday. Denies any illicit drug use. MD complaint: alcohol withdrawal Chronic alcohol use: Yes Previous visits for alcohol intoxication: Yes Recent trauma: No Associated symptoms: nausea and vomiting Treatments prior to arrival: none Related Data Previous Rx's ?Medication ?Instructions ?Recorded magnesium oxide 400 mg (241.3 mg 400 mg PO QDAY #4 tab s 09/13/24 magnesium) tablet pantoprazole 40 mg tablet,delayed 40 mg PO BID 1 month #60 tabs 09/13/24 release (Protonix) chlordiazepoxide HCl 25 mg capsule 25 mg PO Q6H PRN al cohol 10/12/24 withdrawal #30 caps famotidine 20 mg tablet (Pepcid) 20 mg PO BID allergic reaction #20 10/12/24 tabs Allergies Allergy/AdvReac Type Severity Reaction Status Date / Time No Known Allergies Allergy Verified 11/01/24 00:46 Review of Systems Review of Systems Systems Reviewed: All systems reviewed, normal except as documented Past Medical History Past Medical History NEUROLOGIC: Positive Neurological Disorders GASTROINTESTINAL: Positive Gastrointestinal Disorders and Cirrhosis PSYCHO/SOCIAL: Positive Depression and Anxiety Family History FAMILY HISTORY: Positive Family Psychiatric Problems Social History SMOKING STATUS: Current every day smoker ALCOHOL: Current ALCOHOL FREQUENCY: 3 or More Drinks per Day ED Exam Narrative Physical exam: Generally patient is tremulous arouses to verbal stimuli, head is normocephalic atraumatic, pupils equal round reactive to light, Neurologic exam patient arouses to verbal stimuli. No focal motor deficits. Patient is excessively tremulous, heart regular rate and rhythm, lungs clear to auscultation equal bilaterally, skin is warm pale and dry Course Quality Measures none Orders Category Date Time Status Seizure precautions NOW Care 11/01/24 01:17 Active Alcohol, Blood Medical Stat Lab 11/01/24 01:15 Completed CBC Stat Lab 11/01/24 01:15 Completed CMP [Comprehensive Metabolic Panel] Stat Lab 11/01/24 01:15 Completed Drug Screen,Urine Stat Lab 11/01/24 01:04 Ordered Lipase Stat Lab 11/01/24 01:15 Completed Diazepam Inj [Valium Inj] Med 11/01/24 01:00 Discontinued 10 mg IVP X1 ONE Diazepam Inj [Valium Inj] Med 11/01/24 01:03 Discontinued 10 mg IVP X1 ONE Diazepam Inj [Valium Inj] Med 11/01/24 01:57 Discontinued 10 mg IVP X1 ONE Diazepam Inj [Valium Inj] Med 11/01/24 02:52 Once 10 mg IVP X1 ONE Ondansetron Inj [Zofran Inj] Med 11/01/24 01:01 Discontinued 4 mg IVP X1 ONE Ondansetron Inj [Zofran Inj] Med 11/01/24 01:03 Discontinued 4 mg IVP X1 ONE Vital Signs Vital signs: Vital Signs Pulse Rate 75 11/01/24 00:53 Respiratory Rate 17 11/01/24 00:53 Blood Pressure 141/62 H 11/01/24 00:53 Pulse Oximetry (%) 98 11/01/24 00:53 Oxygen Delivery Method Room Air 11/01/24 00:53 Critical Care Time Critical Care Time Critical Care Time: Yes Total Critical Care Time (min.): 35 Attestation: Excluding other billable procedures Discharge Plan Plan Patient Disposition: Admit Acute Care w/in Hospital Prescriptions/Referrals Prescriptions/Med Rec: No Action pantoprazole [Protonix] 40 mg tablet,delayed release (DR/EC) 40 mg PO BID 30 Days Qty: 60 3RF Rx Instructions: Take one tablet by mouth twice a day magnesium oxide 400 mg (241.3 mg magnesium) tablet 400 mg PO QDAY Qty: 4 0RF chlordiazepoxide HCl 25 mg capsule 25 mg PO Q6H MDD 4 PRN (Reason: alcohol withdrawal) Qty: 30 1RF famotidine [Pepcid] 20 mg tablet 20 mg PO BID MDD 2 Qty: 20 0RF Referrals: No Primary/Family,Physician [Primary Care Provider] - In 1 week Problem List Clinical Impression: Alcohol withdrawal Patient/Caregiver Discharge Instructions Print Language: Czech Stand Alone Forms: Claire Award Info., Patient Portal Info Letter Alcohol MDM Narrative MDM Narrative: Scribe Attestation: I, Marialuisa Boone, am scribing for and in the presence of Dr. Goldberg. Provider Notation: Although this document has been carefully reviewed, there may still be some phonetic and other typographical errors. These errors are purely grammatical due to imperfections in the software program and should not be construed in any way to compromise the substance of the patient's medical care during this visit. Patient appears to be withdrawing from alcohol. He has not drank for 2 days. Alcohol level is negative. Patient received Valium 10 mg IV x 3 with moderate benefit. He is not an alcoholic ketoacidosis. Lipase is normal. I discussed this case with the hospitalist and the patient will be admitted to the hospital for further treatment and evaluation for his alcohol withdrawal. I interpreted all labs. I did review the patient's past hospitalizations in the computer. Differential diagnosis: Alcohol withdrawal, delirium tremens, drug abuse Patient data External records reviewed:: [facility] previous records (Reviewed prior ED records from 10/12/24. Patient was seen for Alcohol intoxication.) Clinical information provided by:: patient Social determinants that could affect healthcare access:: alcohol use Patient has the following chronic illnesses:: Cirrhosis, Depression, and Anxiety How is presenting disease/condition affected by chronic disease/condition?: exacerbated by Evaluation data The following diagnostics were reviewed and interpreted by me:: lab results Lab and/or radiology exams considered but not ordered:: None Interpretation Summary: See MDM above Medications / Prescriptions Medications or Prescriptions considered but not ordered:: None Medication administrations:: Medication Administration History Diazepam (Diazepam Inj 5 Mg/Ml Vial 2 Ml) 10 mg IVP X1 ONE Stop: 11/01/24 02:53 Discontinued Medications Diazepam (Diazepam Inj 5 Mg/Ml Vial 2 Ml) 10 mg IVP X1 ONE Stop: 11/01/24 01:01 Last Admin: 11/01/24 01:07 Dose: 10 mg Documented By: DAHLIA Diazepam (Diazepam Inj 5 Mg/Ml Vial 2 Ml) 10 mg IVP X1 ONE Stop: 11/01/24 01:04 Last Admin: 11/01/24 01:09 Dose: Not Given Documented By: DAHLIA Non-Admin Reason: Duplicate Medication on eMAR Diazepam (Diazepam Inj 5 Mg/Ml Vial 2 Ml) 10 mg IVP X1 ONE Stop: 11/01/24 01:58 Last Admin: 11/01/24 02:07 Dose: 10 mg Documented By: DAHLIA Ondansetron HCl (Ondansetron Inj 2 Mg/Ml Inj 2 Ml) 4 mg IVP X1 ONE; Protocol Stop: 11/01/24 01:02 Last Admin: 11/01/24 01:08 Dose: 4 mg Documented By: SF Ondansetron HCl (Ondansetron Inj 2 Mg/Ml Inj 2 Ml) 4 mg IVP X1 ONE; Protocol Stop: 11/01/24 01:04 Last Admin: 11/01/24 01:09 Dose: Not Given Documented By: SF Non-Admin Reason: Duplicate Medication on eMAR See above if any Consultations Consultation(s) initiated? (list below): Yes Consultation #1 (Physician, Specialty, Details): Discussed with Hospitalist for admission. Reviewed the patient?s HPI, PMHx, lab and/or radiology results. Discussed treatment plan. Accepts patient for admission. Time: 02:53 Diagnosis Differential diagnosis alcohol: alcohol withdrawal delirium, hypomagnesemia, alcohol intoxication, alcohol ketoacidosis, alcohol withdrawal syndrome and alcohol withdrawal seizure Most likely diagnosis given after review of the tests above:: none Admission Indicated Admission indicated?: indicated Admission Request Was there a request for admission?: Yes Admission Attestation Admission request attestation: Discussed case with [] from Hospitalist service regarding admission. Discussed patients ED course, exam findings, labs, and radiology results. The Hospitalist [agrees,declines] to accept the patient for admission. Disposition Plan Disposition Plan: Admit
[2024-11-01] MEDS: DIAZEPAM INJ 5 MG/ML VIAL 2 ML 10 MG IVP ×4 (01:07→09:26)
[2024-11-01] MEDS: ONDANSETRON INJ 2 MG/ML INJ 2 ML 4 MG IVP ×3 (01:08→13:49)
[2024-11-01 01:19] LABS: Basophils # (Auto) 0.0 Thou/mm3 (0.0-0.2); Basophils % (Auto) 0 % (0-2.5); Eosinophils # (Auto) 0.0 Thou/mm3 (0.0-0.5); Eosinophils % (Auto) 0 % (0-10); Hematocrit 35.7 % (41.0-53.0); Hemoglobin 12.0 g/dL (13.5-16.0); Immature Granulocytes Auto 0.02 Thou/mm3 (0.00-0.00); Lymphocytes # (Auto) 1.0 Thou/mm3 (1.0-4.8); Lymphocytes % (Auto) 19 % (10-50); Mean Corpuscular HGB Conc 33.6 g/dl (31.0-37.0); Mean Corpuscular Hemoglobin 30.5 pg (25.0-35.0); Mean Corpuscular Volume 91 fL (80-100); Monocytes # (Auto) 0.6 Thou/mm3 (0.0-0.8); Monocytes % (Auto) 12 % (0-12); Neutrophils # (Auto) 3.4 Thou/mm3 (1.8-7.7); Neutrophils % (Auto) 68 % (37-80); Nucleated Red Blood Cell # 0.00 Thou/mm3 (0.00-0.00); Nucleated Red Blood Cell % 0 /100 WBC (0); Platelet Count 187 Thou/mm3 (140-440); RDW Standard Deviation 52.9 fL (35.1-43.9); Red Blood Count 3.93 Miln/mm3 (4.50-5.90); White Blood Count 5.0 Thou/mm3 (3.8-10.6)
[2024-11-01 01:48] LABS: Alanine Aminotransferase 61 U/L (10-49); Albumin, Serum 4.8 gm/dL (3.5-5.0); Albumin/Globulin Ratio 1.7 (1.2-2.2); Alcohol, Blood Medical < 3.0 mg/dL (0-10.0); Alkaline Phosphatase 195 U/L (46-116); Anion Gap 12 (7-16); Aspartate Amino Transferase 180 U/L (0-34); BUN/Creatinine Ratio 6 Ratio (12-20); Bilirubin,Total 0.8 mg/dL (0.3-1.2); Blood Urea Nitrogen < 5 mg/dL (9-23); Calcium 8.9 mg/dL (8.3-10.6); Calcium (Corrected) 8.9 mg/dL (8.5-10.1); Carbon Dioxide 25.3 mMol/L (20.0-31.0); Chloride 99 mMol/L (98-107); Creatinine (Component) 0.9 mg/dL (0.6-1.3); Estimated Creatinine Clearance 99.2 mL/min (>60); Globulin 2.9 gm/dL (2.3-3.5); Glucose 131 mg/dL (74-106); Lipase 35 U/L (12-53); Osmolality,Calculated 271 (275-295); Potassium 4.5 mMol/L (3.4-5.1); Sodium 136 mMol/L (136-145); Total Protein 7.7 gm/dL (5.7-8.2); eGFR > 60 See Note
--- NOTE | 2024-11-01 04:10 | PD.RESHP ---
Documentation for date of: 11/01/24 [facility] History of Present Illness History of present illness: Patient is a 29 year-old with past medical history of alcohol abuse with previous alcohol withdrawal, liver cirrhosis with esophageal varices, GI bleed presents to the ED on 11/01/2024 with chief complaint of alcohol withdrawal, shaking, vomiting. Patient reports nausea, hematemesis, abdominal pain, headache, tremors has been current for 1 day. Patient appears to be in active withdrawal. Patient reported last drink 2 days ago. Upon evaluation CIWA was 20.He states he feels like there are bugs crawling all over his body, he has been having both auditory and visual hallucination for the last few days. Patient said that anxious about the hallucinations and he wants it to stop. Patient has a current history of alcohol intoxication and admission for alcohol withdrawal. On last admission, EGD was done on 09/12/2024, and was found to have grade 1 esophageal varices. Patient reports that he tried to go to AA for assistance but it was not helpful. Patient mentioned that he is currently working with his primary care provider, who is assisting with alcohol cessation guidance. He denies chest pain, shortness of breath, fever, melena, hematochezia, bowel changes, urinary symptoms. ED Course: -Initial vitals were BP 141/62, pulse 75, RR 17, temp 98.1, O2 sat 98% on room air -Labs significant for Hgb 12, HCT 35.7, ABG pH 7.34, AST 180, ALT 61, alkaline phosphatase 195. UTOX positive for benzodiazepine and marijuana - Imaging included EKG showed sinus rhythm -In the ED, patient was given diazepam 10 mg x 4, Zofran 4 mg x 1. -Patient was admitted for upper GI bleed secondary to chronic alcohol use. Review of Systems Review of systems otherwise negative except what is mentioned above. Past Medical History: Alcoholism previous alcohol withdrawal, cirrhosis with esophageal varices Family History: Noncontributory Surgical History: None Social History: Denies history of smoking and recreational drug use however UTOX positive for marijuana and benzodiazepine. Reported drinking beer, vodka, whiskey however when asked how many per day the patient refuses answer Current Medications: Pending med list Allergies: No known drug allergies Exam Vital Signs Temp Pulse Resp BP Pulse Ox O2 Del Method 98.1 F 54 L 17 109/78 98 Room Air 11/01/24 02:50 11/01/24 03:35 11/01/24 03:35 11/01/24 03:35 11/01/24 03:35 11/01/24 03:35 Narrative Exam General: Patient is tremulous arouses to verbal stimuli.Conversational and toxic appearing. Skin: Warm, dry, intact. No rash or ecchymoses. Head: Normocephalic, atraumatic. Eye: Normal conjunctiva, PERRL. Throat: Oral mucosa moist. No obvious lesions in oropharynx. Cardiovascular: Regular rate and rhythm, no murmur, +S1/S2. Respiratory: Lungs are clear to auscultation, respirations unlabored, no crackles, no wheezing. Gastrointestinal: Soft, generalized tenderness, non-distended. No guarding or rebound tenderness. Extremities: No edema, no cyanosis, no clubbing. Neuro: Alert and oriented x3.No focal deficits observed. Conversant, moving all extremities. No overt cerebellar signs/incoordination. Psychiatric: Cooperative, appropriate affect Results: Labs 11/06/24 05:16 11/06/24 05:16 Labs: Short CBC 11/01/24 Range/Units 01:15 WBC 5.0 (3.8-10.6) Thou/mm3 Hgb 12.0 L (13.5-16.0) g/dL Hct 35.7 L (41.0-53.0) % Plt Count 187 D (140-440) Thou/mm3 BMP 11/01/24 01:15 Sodium 136 Potassium 4.5 Chloride 99 Carbon Dioxide 25.3 BUN < 5 L Creatinine 0.9 Glucose 131 H Calcium 8.9 Liver Function 11/01/24 Range/Units 01:15 Total Bilirubin 0.8 (0.3-1.2) mg/dL AST 180 H (0-34) U/L ALT 61 H (10-49) U/L Alkaline Phosphatase 195 H (46-116) U/L Albumin 4.8 (3.5-5.0) gm/dL Quality Measures Quality Measures none Medications Home Medications and Allergies Allergies Allergy/AdvReac Type Severity Reaction Status Date / Time No Known Allergies Allergy Verified 11/16/24 16:33 Visit Medications Acetaminophen (Acetaminophen 325 Mg Tablet) 650 mg PO Q6H PRN PRN Reason: PAIN SCALE 1-3 (mild Stop: 12/01/24 03:52 Acetaminophen (Acetaminophen 325 Mg Tablet) 650 mg PO Q6H PRN PRN Reason: Fever >100.4 Stop: 12/01/24 03:52 Diazepam (Diazepam Inj 5 Mg/Ml Vial 2 Ml) 20 mg IVP Q2H PRN PRN Reason: CIWA 17-20 Stop: 11/06/24 04:00 Diazepam (Diazepam Inj 5 Mg/Ml Vial 2 Ml) 5 mg IVP Q6H PRN PRN Reason: CIWA 2-6 Stop: 11/06/24 04:14 Diazepam (Diazepam Inj 5 Mg/Ml Vial 2 Ml) 10 mg IVP Q4H PRN PRN Reason: CIWA 7-11 Stop: 11/06/24 04:00 Diazepam (Diazepam Inj 5 Mg/Ml Vial 2 Ml) 15 mg IVP Q4H PRN PRN Reason: CIWA 12-16 Stop: 11/06/24 04:00 Diazepam (Diazepam Inj 5 Mg/Ml Vial 2 Ml) 5 mg IVP Q6H APO[facility]VA Stop: 11/06/24 04:14 Folic Acid (Folic Acid Inj 1 Mg/0.2 Ml) 1 mg IVP QDAY [facility] Stop: 12/01/24 08:59 Octreotide Acetate 1,000 mcg/ (Sodium Chloride) 102 mls @ 5.1 mls/hr IV .Q20H APOORVA; Protocol Stop: 11/06/24 04:05 Ceftriaxone Sodium/Dextrose (Rocephin/D5w 1gm Iv Premix) 50 mls @ 100 mls/hr IV QDAY [facility] Stop: 11/08/24 08:59 Thiamine HCl 500 mg/ Sodium (Chloride) 105 mls @ 205 mls/hr IV X1 ONE Stop: 11/01/24 04:36 Sodium Chloride (Ns) 1,000 mls @ 75 mls/hr IV .[id number] [facility] Stop: 12/01/24 04:14 Melatonin (Melatonin 3 Mg Tablet) 6 mg PO HS [facility] Stop: 12/01/24 20:59 Ondansetron HCl (Ondansetron Inj 2 Mg/Ml Inj 2 Ml) 4 mg IVP Q6H PRN; Protocol PRN Reason: NAUSEA OR VOMITING Stop: 12/01/24 03:52 Pantoprazole Sodium (Pantoprazole Inj 40 Mg Vial) 40 mg IVP BID [facility] Stop: 12/01/24 08:59 Thiamine HCl (Thiamine Inj 100 Mg/Ml Vial 2 Ml) 100 mg IM QDAY [facility] Stop: 12/01/24 08:59 Trazodone HCl (Trazodone Hcl 50 Mg Tablet) 50 mg PO HS [facility] Stop: 12/01/24 20:59 Discontinued Medications Diazepam (Diazepam Inj 5 Mg/Ml Vial 2 Ml) 10 mg IVP X1 ONE Stop: 11/01/24 01:01 Last Admin: 11/01/24 01:07 Dose: 10 mg Diazepam (Diazepam Inj 5 Mg/Ml Vial 2 Ml) 10 mg IVP X1 ONE Stop: 11/01/24 01:04 Last Admin: 11/01/24 01:09 Dose: Not Given Diazepam (Diazepam Inj 5 Mg/Ml Vial 2 Ml) 10 mg IVP X1 ONE Stop: 11/01/24 01:58 Last Admin: 11/01/24 02:07 Dose: 10 mg Diazepam (Diazepam Inj 5 Mg/Ml Vial 2 Ml) 10 mg IVP X1 ONE Stop: 11/01/24 02:53 Last Admin: 11/01/24 03:39 Dose: 10 mg Ondansetron HCl (Ondansetron Inj 2 Mg/Ml Inj 2 Ml) 4 mg IVP X1 ONE; Protocol Stop: 11/01/24 01:02 Last Admin: 11/01/24 01:08 Dose: 4 mg Ondansetron HCl (Ondansetron Inj 2 Mg/Ml Inj 2 Ml) 4 mg IVP X1 ONE; Protocol Stop: 11/01/24 01:04 Last Admin: 11/01/24 01:09 Dose: Not Given Pantoprazole Sodium (Pantoprazole Inj 40 Mg Vial) 40 mg IVP QDAY [facility] Stop: 12/01/24 08:59 Assessment & Plan Plan Patient is a 29 year-old with past medical history of alcohol abuse with previous alcohol withdrawal, liver cirrhosis with esophageal varices, GI bleed presents to the ED on 11/01/2024 with chief complaint of alcohol withdrawal, shaking, vomiting. Admitted for alcohol withdrawal evaluation and management #Upper GI bleed #Hx Esophageal varices grade I #Liver cirrhosis Patient presented complaining of hematemesis, nausea and abdominal pain. Patient has previous history of hospitalization for esophageal varices and cirrhosis. Hemoglobin currently stable at 12, hematocrit 35.7. Patient denies shortness of breath, chest pain and melena. Chronic alcohol use has exacerbated liver cirrhosis and contributed to the formation of esophageal varices, leading to clinical presentation of hematemesis. Last EGD done on 09/09/2024 showed esophageal varices in the lower third of esophagus. In ED patient received Zofran 40 mg x 1 and ceftriaxone x 1 Child-Jacobson Score 7 CLASS B-indication for transplant evaluation -Started ceftriaxone 1 mg IV - Started IV NS at 75 mls/hr - Started Zofran 4 mg as needed - Started Protonix 40 mg IV - Started octreotide 50mcg/hr - Vitamin B1 and folic acid - Type and screen - Monitor CBC - GI consulted, recommendation appreciated #Alcohol withdrawal #Chronic alcohol use #Alcohol hepatitis #Polysubstance use DDX:Delirium tremens VS substance use Vs acute alcohol poisoning Patient reports sensation of bugs crawling over the skin, vision and auditory ulceration for the past few days pointed towards delirium tremens and acute alcohol poisoning. Patient denies illicit drug use however UTOX positive for marijuana and benzodiazepine. Upon evaluation CIWA 20. AST 180, ALT 61 with AST>2 of ALT indicating alcohol hepatitis. - CIWA protocol - Extensive counseling of alcohol cessation - Counseled regarding dangers and consequences - Zofran as needed for nausea/vomiting - Seizure precaution Hospital management: Lines: peripheral IV DVT prophylaxis: SCDs GI prophylaxis: pantoprazole Disposition: tele for management of GIB and alcohol withdrawal CODE STATUS: Full code Patient seen and assessed under supervision of attending physician and discuss with senior resident Dr. Mendoza PGY-2 Renee Lee MD PGY-1, Internal Medicine Please note: this document was transcribed using voice recognition technology; minor inaccuracies may be present. Attending Provider Attestation/Addendum Patient seen and examined at beside. Agree with assessment and plan as documented above. Daren Lockwood MD
[2024-11-01 04:24] LABS: Amphetamine/Methamp Scrn,U Negative (Negative); Barbiturate Screen,Urine Negative (Negative); Benzodiazepines Screen,Urine Positive (Negative); Benzoylecgonine Screen, Ur Negative (Negative); Fentanyl Screen,Urine Negative (Negative); Opiate Screen,Urine Negative (Negative); THC Screen,Urine Positive (Negative)
[2024-11-01] MEDS: OCTREOTIDE ACET INJ 1,000 MCG in SODIUM CHLORIDE 0.9% 100 ML 5.1 MCG IV (04:47)
[2024-11-01] MEDS: cefTRIAXone/D5w 1gm IV premix 1 GM/50 ML BAG IV (04:53)
[2024-11-01] MEDS: THIAMINE INJ 500 MG in SODIUM CHLORIDE 0.9% 100 ML 205 MG IV (05:17)
[2024-11-01] MEDS: SODIUM CHLORIDE 0.9% 1000 ML 1,000 ML 75 ML IV ×2 (05:18→19:19)
[2024-11-01 05:26] LABS: Basophils # (Auto) 0.0 Thou/mm3 (0.0-0.2); Basophils % (Auto) 1 % (0-2.5); Eosinophils # (Auto) 0.0 Thou/mm3 (0.0-0.5); Eosinophils % (Auto) 0 % (0-10); Hematocrit 35.3 % (41.0-53.0); Hemoglobin 11.4 g/dL (13.5-16.0); Immature Granulocytes Auto 0.00 Thou/mm3 (0.00-0.00); Lymphocytes # (Auto) 1.0 Thou/mm3 (1.0-4.8); Lymphocytes % (Auto) 29 % (10-50); Mean Corpuscular HGB Conc 32.3 g/dl (31.0-37.0); Mean Corpuscular Hemoglobin 30.2 pg (25.0-35.0); Mean Corpuscular Volume 93 fL (80-100); Monocytes # (Auto) 0.5 Thou/mm3 (0.0-0.8); Monocytes % (Auto) 15 % (0-12); Neutrophils # (Auto) 1.9 Thou/mm3 (1.8-7.7); Neutrophils % (Auto) 55 % (37-80); Nucleated Red Blood Cell # 0.00 Thou/mm3 (0.00-0.00); Nucleated Red Blood Cell % 0 /100 WBC (0); Platelet Count 153 Thou/mm3 (140-440); RDW Standard Deviation 54.5 fL (35.1-43.9); Red Blood Count 3.78 Miln/mm3 (4.50-5.90); White Blood Count 3.4 Thou/mm3 (3.8-10.6)
[2024-11-01] MEDS: MIDAZOLAM INJ 1 MG/ML VIAL 2 ML 9 MG IVP (05:40)
[2024-11-01 05:51] LABS: Alanine Aminotransferase 51 U/L (10-49); Albumin, Serum 4.3 gm/dL (3.5-5.0); Albumin/Globulin Ratio 1.7 (1.2-2.2); Alkaline Phosphatase 176 U/L (46-116); Anion Gap 12 (7-16); Aspartate Amino Transferase 146 U/L (0-34); BUN/Creatinine Ratio 6 Ratio (12-20); Bilirubin,Total 0.9 mg/dL (0.3-1.2); Blood Urea Nitrogen < 5 mg/dL (9-23); Calcium 9.0 mg/dL (8.3-10.6); Calcium (Corrected) 9.0 mg/dL (8.5-10.1); Carbon Dioxide 27.4 mMol/L (20.0-31.0); Chloride 100 mMol/L (98-107); Creatinine (Component) 0.8 mg/dL (0.6-1.3); Estimated Creatinine Clearance 111.6 mL/min (>60); Globulin 2.6 gm/dL (2.3-3.5); Glucose 90 mg/dL (74-106); Magnesium 2.0 mg/dL (1.6-2.6); Osmolality,Calculated 274 (275-295); Phosphorous 3.4 mg/dL (2.4-5.1); Potassium 3.4 mMol/L (3.4-5.1); Sodium 139 mMol/L (136-145); Total Protein 6.9 gm/dL (5.7-8.2); eGFR > 60 See Note
[2024-11-01] MEDS: DIAZEPAM INJ 5 MG/ML VIAL 2 ML IVP (06:55)
--- NOTE | 2024-11-01 09:12 | XR_ITS ---
Examination: Abdomen sonogram, Limited Date and time of exam: November 01, 2024 1020 hours INDICATIONS: Epigastric pain beginning one year ago Technique: Real-time hearn scale transabdominal sonographic images of the upper abdomen obtained. Findings: Normal gallbladder. Normal common bile duct 0.3 cm Pancreatic head 2.6 cm Liver 15.1 cm fatty infiltration Normal hepatopedal portal venous flow Patent IVC IMPRESSION: Normal gallbladder
[2024-11-01] MEDS: FOLIC ACID INJ 1 MG/0.2 ML IVP (09:27)
[2024-11-01] MEDS: Magnesium Sulfate 2 GM Ivpb 2 GM/50 ML BAG IV (09:28)
[2024-11-01] MEDS: THIAMINE INJ 100 MG/ML VIAL 2 ML IVP (09:28)
--- NOTE | 2024-11-01 09:30 | PC.NURSE ---
PATIENT HR 35 SUSTAINING, DR. CHRISTENSEN MADE AWARE, EKG ORDER STAT, SANDOSTATIN DRIP DECREASE SEE APR.
--- NOTE | 2024-11-01 09:32 | XR_ITS ---
Examination: AP chest single view Technique one AP portable upright chest single view Date and time: November 01, 2024 1019 hours, comparison 10/12/2024 INDICATIONS: Epigastric pain beginning 2 days ago. FINDINGS: Normal heart size No lobar pneumonia or pulmonary edema Prominent osteopenia IMPRESSION: No pneumonia or pulmonary edema
--- NOTE | 2024-11-01 09:44 | PC.NURSE ---
versed 10 mg iv push given, RR 15, chest rise and fall, pt in no distress and arouse to voice.
[2024-11-01] MEDS: OCTREOTIDE ACET INJ 1,000 MCG in SODIUM CHLORIDE 0.9% 100 ML 3.06 MCG IV (09:47)
--- NOTE | 2024-11-01 10:00 | PC.NURSE ---
PATIENTS HR [address] DR[address] RAMIREZ MADE AWARE. EKG ORDER. VITAL SIGNS WNL AND PT ASYMTOMATIC.
--- NOTE | 2024-11-01 10:05 | PC.NURSE ---
PER DOCTOR FERMIN HEREDIA MAG IV. MADE AWARE OF LOW HR 35.
--- NOTE | 2024-11-01 10:11 | EKG_ITS ---
[facility] Test Date: 2024-11-01 Pat Name: CASA DENTON [facility] Restaurant Attendant: CABRERA : 1995 Requested By: Russ Hawk Order Number: [id number] Reading MD: Russ Hawk Measurements Intervals [place] Rate: 39 P: 49 [place]: 128 QRS: 19 QRSD: 108 T: 31 QT: 485 QTc: 392 Interpretive Statements SINUS BRADYCARDIA WITH SINUS ARRHYTHMIA Compared to ECG 09/11/2024 14:44:16 No significant changes /store/S0/[id number].pdf
--- NOTE | 2024-11-01 10:37 | PC.SS ---
SS met with patient regarding his d/c plan. Pt is alert/oriented. Pt was admitted for Alcohol Withdrawal. Pt confirmed demographic and contact information is correct on facesheet. Pt resides with both parents. Pt ambulates independently without assistance or DME. Pt is ok with all ADLs. Patient?s pharmacy of choice is [facility] [address]. Pt named his dad, Abad Markie medical decision maker if he is unable. Patient?s choice is to return home upon d/c. Pt states not diabetic and is not on dialysis. Pt is on CWAL Protocol. Pt states he has consumed beer since a young age. Pt also states he has participated in worship programs in the past of alcohol use and AA meetings. SS offered community resources and pt is receptive. Pt followed up with [facility] last month. Dad or patient's brotherProsper will provide transportation home upon dc. D/C plan: Return home Next of Kin: ralph Silverman, phone# [phone] PCP: [facility] Address: Correct on facesheet
[2024-11-01] MEDS: HYOSCYAMINE SULF 0.125 MG TAB.SUBL 0.25 MG PO ×4 (11:01→21:31)
--- NOTE | 2024-11-01 12:12 | PC.NURSE ---
DR. VILLEGAS ORDER TO CONTINUE TO GIVE ATIVAN PO FOR CIWA PROTOCOL. ORDER RECEIVED READ BACK AND CARRIED OUT.
[2024-11-01] MEDS: ACETAMINOPHEN 325 MG TABLET 650 MG PO ×2 (12:25→20:54)
--- NOTE | 2024-11-01 12:43 | PC.NURSE ---
DR. COBURN AT BEDSIDE, ROUNDING, HOLD PHENOBARBITAL PT IS CALMER AND HR IS LOW, PT C/O GENERALIZE PAIN, TYLENOL GIVEN MD VARGHESE. POC DISCUSSED.
--- NOTE | 2024-11-01 13:26 | PD.RESPRO ---
Documentation for date of: 11/01/24 Subjective Subjective Interval history: Overnight admission for alcohol withdrawal. Seen and examined at bedside and patient endorses feeling anxious, bugs crawling on his skin, and epigastric pain that radiates behind his sternum into his throat. States that he was having multiple episodes of emesis with blood-tinged streaks and will give Maalox for symptomatic relief. CIWA score noted to peak at 23 today and he was given 10 mg of IV diazepam. Subsequent CIWA scores have overall downtrended. GI has also been consulted due to concerns for upper GI bleed given history of cirrhosis and esophageal varices, though hemoglobin is stable. Will continue ceftriaxone octreotide drip but at a lower dose given patient's bradycardia, and follow-up GI recs. Exam Vital Signs Temp Pulse Resp BP Pulse Ox O2 Del Method O2 Flow Rate 97.3 F 43 L 17 113/70 100 Nasal Cannula 2 11/01/24 12:00 11/01/24 12:00 11/01/24 12:11/01/24 12:11/01/24 12:11/01/24 12:11/01/24 12:00 Narrative Exam General: A&Ox2, appears tired, tremulous and mild distress, able to speak full sentences HEENT: NC/AT, mucous membranes moist, bilateral sclera anicteric Cardiovascular: regular rate and rhythm, S1/S2 present, no murmurs appreciated Pulmonary: clear to auscultation bilaterally, no rales/rhonchi/wheezes Abdominal: generalized tenderness to palpation, soft, non-distended, no rebound/guarding Musculoskeletal: tremulous with hands held out straight Skin: warm and dry, intact, no rashes Objective Labs 11/03/24 05:30 11/03/24 05:30 Labs: Laboratory Results - last 24 hr 11/01/24 11/01/24 11/01/24 01:15 03:52 04:40 WBC 5.0 3.4 L RBC 3.93 L 3.78 L Hgb 12.0 L 11.4 L Hct 35.7 L 35.3 L MCV 91 93 MCH 30.5 30.2 MCHC 33.6 32.3 RDW Std Deviation 52.9 H 54.5 H Plt Count 187 D 153 D Neut % (Auto) 68 55 Lymph % (Auto) 19 29 [place] % (Auto) 12 15 H Eos % (Auto) 0 0 Baso % (Auto) 0 1 Neut # (Auto) 3.4 1.9 Lymph # (Auto) 1.0 1.0 [place] # (Auto) 0.6 0.5 Eos # (Auto) 0.0 0.0 Baso # (Auto) 0.0 0.0 Immature Gran # (Auto) 0.02 H 0.00 Absolute Nucleated RBC 0.00 0.00 Immature Gran % 0 0 Nucleated RBC % 0 0 Sodium 136 139 Potassium 4.5 3.4 D Chloride 99 100 Carbon Dioxide 25.3 27.4 Anion Gap 12 12 BUN < 5 L < 5 L Creatinine 0.9 0.8 Estim Creat Clear Calc 99.2 111.6 eGFR > 60 > 60 BUN/Creatinine Ratio 6 L 6 L Glucose 131 H 90 Calculated Osmolality 271 L 274 L Calcium 8.9 9.0 Corrected Calcium 8.9 9.0 Phosphorus 3.4 Magnesium 2.0 Total Bilirubin 0.8 0.9 AST 180 H 146 H ALT 61 H 51 H Alkaline Phosphatase 195 H 176 H Total Protein 7.7 6.9 Albumin 4.8 4.3 D Globulin 2.9 2.6 Albumin/Globulin Ratio 1.7 1.7 Lipase 35 Urine Opiates Screen Negative Urine Fentanyl Screen Negative Ur Barbiturates Screen Negative U Amphetamin/Meth Scrn Negative U Benzodiazepines Scrn Positive A U Cocaine Metab Screen Negative U Marijuana (THC) Screen Positive A Ethyl Alcohol < 3.0 Blood Type O Positive Antibody Screen NEGATIVE Blood Bank Wristband ID Yes Quality Measures Quality Measures none Assessment & Plan Assessment Current Active Medications: Generic Name Dose Route Start Last Admin Trade Name Freq PRN Reason Stop Dose Admin Acetaminophen 650 mg 11/01/24 03:53 11/01/24 12:25 Acetaminophen 325 Mg Tablet PO 12/01/24 03:52 650 mg Q6H PRN Administration PAIN SCALE 1-3 (mild Al Hydrox/Mg Hydrox/Simethicone 15 ml 11/01/24 12:02 Mg Hyd/Al Hyd/Julain (Maalox Reg) Susp 30 Ml Udc PO 12/01/24 12:01 QID PRN Throat pain Diazepam 10 mg 11/01/24 09:02 11/01/24 09:26 Diazepam Inj 5 Mg/Ml Vial 2 Ml IVP 11/06/24 09:59 10 mg Q2HR PRN Administration CIWA >20 Folic Acid 1 mg 11/04/24 09:00 Folic Acid 1 Mg Tablet PO 12/04/24 08:59 QDAY APOORVA Folic Acid 1 mg 11/01/24 09:00 11/01/24 09:27 Folic Acid Inj 1 Mg/0.2 Ml IVP 11/04/24 08:59 1 mg QDAY APOORVA Administration Hyoscyamine 0.25 mg 11/01/24 10:00 11/01/24 11:01 Hyoscyamine Sulf 0.125 Mg Tab.Subl PO 12/01/24 09:59 0.25 mg Q4HR APOORVA Administration Ceftriaxone Sodium/Dextrose 1 gm in 50 mls @ 100 mls/hr 11/02/24 09:00 Rocephin/D5w 1gm Iv Premix IV 11/08/24 08:59 QDAY APOORVA Sodium Chloride 1,000 mls @ 75 mls/hr 11/01/24 04:15 11/01/24 05:18 Ns IV 12/01/24 04:14 75 mls/hr .[id number] APOORVA Administration Octreotide Acetate 1,000 mcg/ 102 mls @ 3.06 mls/hr 11/01/24 09:15 11/01/24 09:47 Sodium Chloride IV 11/02/24 09:14 30 mcg/hr .Q24H APOORVA 3.06 mls/hr Protocol Administration 30 MCG/HR Octreotide Acetate 1,000 mcg/ 102 mls @ 5.1 mls/hr 11/02/24 09:15 Sodium Chloride IV 12/02/24 09:14 .Q20H APOORVA Protocol 50 MCG/HR Lorazepam 1 mg 11/01/24 09:00 Lorazepam 0.5 Mg Tablet PO 11/06/24 08:59 Q4HR PRN CIWA 5-10 Lorazepam 2 mg 11/01/24 09:00 Lorazepam 0.5 Mg Tablet PO 11/06/24 09:59 Q2HR PRN CIWA 11-15 Lorazepam 4 mg 11/01/24 10:46 Lorazepam 0.5 Mg Tablet PO 11/06/24 09:59 Q2HR PRN CIWA 16-20/Seizures. Melatonin 6 mg 11/01/24 21:00 Melatonin 3 Mg Tablet PO 12/01/24 20:59 HS APOORVA Ondansetron HCl 4 mg 11/01/24 03:53 11/01/24 06:54 Ondansetron Inj 2 Mg/Ml Inj 2 Ml IVP 12/01/24 03:52 4 mg Q6H PRN Administration NAUSEA OR VOMITING Protocol Pantoprazole Sodium 40 mg 11/01/24 09:00 11/01/24 09:27 Pantoprazole Inj 40 Mg Vial IVP 12/01/24 08:59 40 mg BID APOORVA Administration Phenobarbital 130 mg 11/02/24 07:00 Phenobarbital Elix 20 Mg/5 Ml Udc PO 11/02/24 07:01 X1 ONE Phenobarbital 60 mg 11/03/24 07:00 Phenobarbital Elix 20 Mg/5 Ml Udc PO 11/03/24 07:01 X1 ONE Phenobarbital 60 mg 11/04/24 07:00 Phenobarbital Elix 20 Mg/5 Ml Udc PO 11/04/24 07:01 X1 ONE Thiamine HCl 100 mg 11/01/24 09:00 11/01/24 09:28 Thiamine Inj 100 Mg/Ml Vial 2 Ml IVP 11/04/24 08:59 100 mg QDAY APOORVA Administration Thiamine HCl 100 mg 11/04/24 09:00 Thiamine 100 Mg Tablet PO 12/04/24 08:59 QDAY APOORVA Trazodone HCl 50 mg 11/01/24 21:00 Trazodone Hcl 50 Mg Tablet PO 12/01/24 20:59 [facility] Plan Yo? Markie Bryant is a 29-year-old male with a history of alcohol use/withdrawal, cirrhosis with esophageal varices, and GI bleed who is admitted for alcohol withdrawal and workup for GI bleed. #Alcohol withdrawal #Chronic alcohol use #Polysubstance use #Gastritis Reports sensation of bugs crawling on skin, vision and auditory ulceration for the past few days. U-tox positive for marijuana and benzodiazepines. Initial AST 180, ALT 61. ? CIWA protocol ? Lorazepam for CIWA score of 5-20 ? Diazepam for CIWA greater than 20 ? Thiamine 100 mg p.o. daily ? Folic acid 1 mg p.o. daily ? Maalox 15 mg p.o. 4 times daily as needed ? Extensive counseling of alcohol cessation ? Seizure precaution #Upper GI bleed #Hx Esophageal varices grade I #Liver cirrhosis Presented complaining of hematemesis, nausea and abdominal pain. Previous history of hospitalization for esophageal varices and cirrhosis. Hemoglobin currently stable at 12, hematocrit 35.7. Last EGD done on 09/09/2024 showed esophageal varices in the lower third of esophagus. Child-Jacobson score: 7 (class B indication for transplant evaluation). ? GI consulted, appreciate recommendations ? Octreotide drip at lower rate given bradycardia ? Ceftriaxone 1 mg IV daily ? Protonix 40 mg IV twice daily ? NS at 75 mls/hr ? Monitor CBC Hospital management: Disposition: tele for management of GIB and alcohol withdrawal Lines: peripheral IV DVT prophylaxis: SCDs GI prophylaxis: pantoprazole BID CODE STATUS: Full code ----- Plan discussed with attending physician Dr. Shabbir Juarez MD PGY-2 Internal Medicine Attending Provider Attestation/Addendum I attest that I was physically present for the evaluation, physical examination, lab and imaging review of the patient with the residents. I discussed the case with the residents and agree with the findings and plans of care as documented above. No Shea MD
--- NOTE | 2024-11-01 15:30 | PC.NURSE ---
PATIENTS HR 31 WITH JUNCTION, DR. CHRISTENSEN MADE AWARE, EKG ORDER STAT, SANDOSTATIN DOSE DECREASE PER DR. FERMIN SORIA AT BEDSIDE, PT ALERT AND ORIENTED TO SELF AND PLACE DENIES DIZZINESS, CHEST PAIN, OR NAUSEA. PT WITH NURSE HELP WAS ABLE TO SIT UP ON HIS BED. SEVER TREMORS NOTED AND C/O GENERALIZE BODY ACHE, PATIENT TOLERATED TO SIT FOR A FEW MINUTES.
[2024-11-01] MEDS: OCTREOTIDE ACET INJ 1,000 MCG in SODIUM CHLORIDE 0.9% 100 ML 2.04 MCG IV (15:36)
--- NOTE | 2024-11-01 18:22 | PD.IMCONS ---
HPI Data of Consult Requesting Physician: No Shea MD Primary Care Provider: Physician No Primary/Family Consult Narrative Reason for consult: Pain abdomen nausea vomiting History of present illness: 29 years old male presented to the hospital with nausea vomiting and pain abdomen Patient was also in alcohol withdrawal being treated with IV diazepam and the CIWA score was through the roof and is dropping There was a concern for hematemesis and possible GI bleed in the setting of cirrhotic liver disease due to alcohol Patient was drinking up until he came to the hospital Hemoglobin hematocrit 12.0 and 35.9 on admission which has gone down to hemoglobin of 11.4 LFTs are downtrending with a total bilirubin of 0.9 AST ALT 146 and 51 alk phos of 176 Gallbladder ultrasound shows normal gallbladder cc:: cc: No Shea MD Review of Systems Review of Systems ROS Unobtainable: unobtainable due to medical condition Past Medical History Surgical History OTHER SURGICAL HX: As in the history of present illness Meds Home Medications and Allergies Allergies Allergy/AdvReac Type Severity Reaction Status Date / Time No Known Allergies Allergy Verified 11/01/24 00:46 Exam Vital Signs Temp Pulse Resp BP Pulse Ox O2 Del Method O2 Flow Rate 97.0 F 44 L 14 120/85 H 99 Nasal Cannula 2 11/01/24 16:00 11/01/24 16:00 11/01/24 16:00 11/01/24 16:00 11/01/24 16:00 11/01/24 16:00 11/01/24 16:00 Constitutional Comments: Chronically ill-appearing Routine Respiratory Exam Comments: Normal to auscultation Routine Abdominal Exam Comments: Midepigastric tenderness Results Labs 11/01/24 04:40 11/01/24 04:40 Labs: Short CBC 11/01/24 11/01/24 Range/Units 01:15 04:40 WBC 5.0 3.4 L (3.8-10.6) Thou/mm3 Hgb 12.0 L 11.4 L (13.5-16.0) g/dL Hct 35.7 L 35.3 L (41.0-53.0) % Plt Count 187 D 153 D (140-440) Thou/mm3 BMP 11/01/24 11/01/24 01:15 04:40 Sodium 136 139 Potassium 4.5 3.4 D Chloride 99 100 Carbon Dioxide 25.3 27.4 BUN < 5 L < 5 L Creatinine 0.9 0.8 Glucose 131 H 90 Calcium 8.9 9.0 Liver Function 11/01/24 11/01/24 Range/Units 01:15 04:40 Total Bilirubin 0.8 0.9 (0.3-1.2) mg/dL AST 180 H 146 H (0-34) U/L ALT 61 H 51 H (10-49) U/L Alkaline Phosphatase 195 H 176 H (46-116) U/L Albumin 4.8 4.3 D (3.5-5.0) gm/dL Assessment and Plan Additional Assessment & Plan Additional Plan: # Pain abdomen with nausea vomiting in the setting of chronic liver disease secondary to alcohol with some drop in hemoglobin hematocrit # Acute alcohol withdrawal Plan N.p.o. midnight tonight Consent obtained for fiberoptic esophagogastroduodenoscopy with possible therapeutic intervention under intravenous moderate sedation scheduled for tomorrow IV Protonix Serial CBC Continue present treatment for alcohol withdrawal symptoms Will follow the patient Thank you very much for the opportunity to participate in the care of this patient
--- NOTE | 2024-11-01 18:32 | PC.NURSE ---
DR. GATES ORDER TO START PATIENT ON CLEAR LIQUID DIET, NPO AFTER 0900 FOR EGD TOMORROW. ORDER RECEIVED, READ BACK AND CARRIED OUT.
[2024-11-01] MEDS: MELATONIN 3 MG TABLET 6 MG PO (20:54)
[2024-11-02] VITALS (16 sets, daily range): BP systolic 111–146; BP diastolic 66–96; PULSE 36–68; RESP 12–14; TEMP 36.2–36.7; O2SAT 96–100; BMI 23.6
[2024-11-02] MEDS: MG HYD/AL HYD/SIME (Maalox Reg) SUSP 30 ML UDC 15 ML PO ×2 (00:14→12:05)
[2024-11-02] MEDS: HYOSCYAMINE SULF 0.125 MG TAB.SUBL 0.25 MG PO ×6 (01:58→21:06)
[2024-11-02] MEDS: ACETAMINOPHEN 325 MG TABLET 650 MG PO (04:04)
[2024-11-02 06:07] LABS: Basophils # (Auto) 0.0 Thou/mm3 (0.0-0.2); Basophils % (Auto) 1 % (0-2.5); Eosinophils # (Auto) 0.1 Thou/mm3 (0.0-0.5); Eosinophils % (Auto) 3 % (0-10); Hematocrit 36.2 % (41.0-53.0); Hemoglobin 12.0 g/dL (13.5-16.0); Immature Granulocytes Auto 0.01 Thou/mm3 (0.00-0.00); Lymphocytes # (Auto) 1.2 Thou/mm3 (1.0-4.8); Lymphocytes % (Auto) 44 % (10-50); Mean Corpuscular HGB Conc 33.1 g/dl (31.0-37.0); Mean Corpuscular Hemoglobin 31.0 pg (25.0-35.0); Mean Corpuscular Volume 94 fL (80-100); Monocytes # (Auto) 0.3 Thou/mm3 (0.0-0.8); Monocytes % (Auto) 12 % (0-12); Neutrophils # (Auto) 1.1 Thou/mm3 (1.8-7.7); Neutrophils % (Auto) 40 % (37-80); Nucleated Red Blood Cell # 0.00 Thou/mm3 (0.00-0.00); Nucleated Red Blood Cell % 0 /100 WBC (0); Platelet Count 134 Thou/mm3 (140-440); RDW Standard Deviation 54.4 fL (35.1-43.9); Red Blood Count 3.87 Miln/mm3 (4.50-5.90); White Blood Count 2.7 Thou/mm3 (3.8-10.6)
[2024-11-02 06:44] LABS: Alanine Aminotransferase 53 U/L (10-49); Albumin, Serum 4.1 gm/dL (3.5-5.0); Albumin/Globulin Ratio 1.6 (1.2-2.2); Alkaline Phosphatase 161 U/L (46-116); Anion Gap 10 (7-16); Aspartate Amino Transferase 128 U/L (0-34); BUN/Creatinine Ratio 5 Ratio (12-20); Bilirubin,Total 0.8 mg/dL (0.3-1.2); Blood Urea Nitrogen < 5 mg/dL (9-23); Calcium 9.2 mg/dL (8.3-10.6); Calcium (Corrected) 9.2 mg/dL (8.5-10.1); Carbon Dioxide 26.0 mMol/L (20.0-31.0); Chloride 103 mMol/L (98-107); Creatinine (Component) 1.0 mg/dL (0.6-1.3); Estimated Creatinine Clearance 89.3 mL/min (>60); Globulin 2.6 gm/dL (2.3-3.5); Glucose 105 mg/dL (74-106); Magnesium 2.1 mg/dL (1.6-2.6); Osmolality,Calculated 274 (275-295); Phosphorous 3.8 mg/dL (2.4-5.1); Potassium 4.0 mMol/L (3.4-5.1); Sodium 139 mMol/L (136-145); Total Protein 6.7 gm/dL (5.7-8.2); eGFR > 60 See Note
[2024-11-02] MEDS: SODIUM CHLORIDE 0.9% 1000 ML 1,000 ML 75 ML IV (08:04)
[2024-11-02] MEDS: THIAMINE INJ 100 MG/ML VIAL 2 ML IVP (09:12)
[2024-11-02] MEDS: FOLIC ACID INJ 1 MG/0.2 ML IVP (09:14)
[2024-11-02] MEDS: cefTRIAXone/D5w 1gm IV premix 1 GM/50 ML BAG IV (09:15)
[2024-11-02] MEDS: DEXTROSE 5%-NS 1,000 ML 100 ML IV ×2 (10:19→22:31)
--- NOTE | 2024-11-02 11:59 | ESPR_ITS ---
Documentation for date of: 11/02/24 Subjective Subjective Interval history: No acute overnight events. Patient still bradycardic in the high 30s. GI plans for colonoscopy today. CIWA scores have been 3-6, octreotide gtt rate of 20 mcg/hr continued. Started on D5W normal saline. Exam Vital Signs Temp Pulse Resp BP Pulse Ox O2 Del Method O2 Flow Rate 97.6 F 45 L 12 125/96 H 98 Nasal Cannula 2 11/02/24 11:50 11/02/24 11:50 11/02/24 11:50 11/02/24 11:50 11/02/24 11:50 11/02/24 11:50 11/02/24 11:50 Narrative Exam General: Lethargic, mild tremor in the hands bilaterally. In no acute distress. Conversational and non-toxic appearing. Neurologic:No gross neurological deficit, patient able to move all 4 extremities. HEENT: Normocephalic, atraumatic, mucous membranes moist. Pupils reactive to light. Heart: Regular rate and rhythm, normal S1 and S2, no murmurs. Lungs: Clear to auscultation bilaterally with no wheezing or crackles. Abdomen: Soft, nondistended, nontender, positive bowel sounds. No guarding or rebound tenderness. Extremities: No edema. 2+ radial and dorsalis pedis pulses bilaterally. Skin: Warm. Dry. No rash or ecchymoses. Objective Labs 11/03/24 05:30 11/03/24 05:30 Labs: Laboratory Results - last 24 hr 11/02/24 05:20 WBC 2.7 L RBC 3.87 L Hgb 12.0 L Hct 36.2 L MCV 94 MCH 31.0 MCHC 33.1 RDW Std Deviation 54.4 H Plt Count 134 L Neut % (Auto) 40 Lymph % (Auto) 44 [place] % (Auto) 12 Eos % (Auto) 3 Baso % (Auto) 1 Neut # (Auto) 1.1 L Lymph # (Auto) 1.2 [place] # (Auto) 0.3 Eos # (Auto) 0.1 Baso # (Auto) 0.0 Immature Gran # (Auto) 0.01 H Absolute Nucleated RBC 0.00 Immature Gran % 0 Nucleated RBC % 0 Sodium 139 Potassium 4.0 D Chloride 103 Carbon Dioxide 26.0 Anion Gap 10 BUN < 5 L Creatinine 1.0 Estim Creat Clear Calc 89.3 eGFR > 60 BUN/Creatinine Ratio 5 L Glucose 105 Calculated Osmolality 274 L Calcium 9.2 Corrected Calcium 9.2 Phosphorus 3.8 Magnesium 2.1 Total Bilirubin 0.8 AST 128 H ALT 53 H Alkaline Phosphatase 161 H Total Protein 6.7 Albumin 4.1 Globulin 2.6 Albumin/Globulin Ratio 1.6 Quality Measures Quality Measures none Assessment & Plan Assessment Current Active Medications: Generic Name Dose Route Start Last Admin Trade Name Freq PRN Reason Stop Dose Admin Acetaminophen 650 mg 11/01/24 03:53 11/02/24 04:04 Acetaminophen 325 Mg Tablet PO 12/01/24 03:52 650 mg Q6H PRN Administration PAIN SCALE 1-3 (mild Al Hydrox/Mg Hydrox/Simethicone 15 ml 11/01/24 12:02 11/02/24 00:14 Mg Hyd/Al Hyd/Julian (Maalox Reg) Susp 30 Ml Udc PO 12/01/24 12:01 15 ml QID PRN Administration Throat pain Diazepam 10 mg 11/01/24 09:02 11/01/24 09:26 Diazepam Inj 5 Mg/Ml Vial 2 Ml IVP 11/06/24 09:59 10 mg Q2HR PRN Administration CIWA >20 Folic Acid 1 mg 11/04/24 09:00 Folic Acid 1 Mg Tablet PO 12/04/24 08:59 QDAY APOORVA Folic Acid 1 mg 11/01/24 09:00 11/02/24 09:14 Folic Acid Inj 1 Mg/0.2 Ml IVP 11/04/24 08:59 1 mg QDAY APOORVA Administration Hyoscyamine 0.25 mg 11/01/24 10:00 11/02/24 10:11 Hyoscyamine Sulf 0.125 Mg Tab.Subl PO 12/01/24 09:59 0.25 mg Q4HR APOORVA Administration Ceftriaxone Sodium/Dextrose 1 gm in 50 mls @ 100 mls/hr 11/02/24 09:00 11/02/24 09:15 Rocephin/D5w 1gm Iv Premix IV 11/08/24 08:59 100 mls/hr QDAY APOORVA Administration Sodium Chloride 1,000 mls @ 75 mls/hr 11/01/24 04:15 11/02/24 10:19 Ns IV 12/01/24 04:14 0 mls/hr .[id number] APOORVA Infusion Octreotide Acetate 1,000 mcg/ 102 mls @ 2.04 mls/hr 11/01/24 15:25 11/01/24 15:36 Sodium Chloride IV 11/02/24 16:27 20 mcg/hr .Q24H APOORVA 2.04 mls/hr Protocol Administration 20 MCG/HR Dextrose/Sodium Chloride 1,000 mls @ 100 mls/hr 11/02/24 09:15 11/02/24 10:19 D5-Ns IV 12/02/24 09:14 100 mls/hr .Q10H APOORVA Administration Lorazepam 1 mg 11/01/24 09:00 11/02/24 04:03 Lorazepam 0.5 Mg Tablet PO 11/06/24 08:59 1 mg Q4HR PRN Administration CIWA 5-10 Lorazepam 2 mg 11/01/24 09:00 11/01/24 18:08 Lorazepam 0.5 Mg Tablet PO 11/06/24 09:59 2 mg Q2HR PRN Administration CIWA 11-15 Lorazepam 4 mg 11/01/24 10:46 Lorazepam 0.5 Mg Tablet PO 11/06/24 09:59 Q2HR PRN CIWA 16-20/Seizures. Melatonin 6 mg 11/01/24 21:00 11/01/24 20:54 Melatonin 3 Mg Tablet PO 12/01/24 20:59 6 mg HS APOORVA Administration Ondansetron HCl 4 mg 11/01/24 03:53 11/01/24 13:49 Ondansetron Inj 2 Mg/Ml Inj 2 Ml IVP 12/01/24 03:52 4 mg Q6H PRN Administration NAUSEA OR VOMITING Protocol Pantoprazole Sodium 40 mg 11/01/24 09:00 11/02/24 09:11 Pantoprazole Inj 40 Mg Vial IVP 12/01/24 08:59 40 mg BID APOORVA Administration Thiamine HCl 100 mg 11/01/24 09:00 11/02/24 09:12 Thiamine Inj 100 Mg/Ml Vial 2 Ml IVP 11/04/24 08:59 100 mg QDAY APOORVA Administration Thiamine HCl 100 mg 11/04/24 09:00 Thiamine 100 Mg Tablet PO 12/04/24 08:59 QDAY APOORVA Trazodone HCl 50 mg 11/01/24 21:00 Trazodone Hcl 50 Mg Tablet PO 12/01/24 20:59 On Hold: 11/01/24 21:00 HS [facility] Plan Summary: Daysi Bryant is a 29-year-old male with a history of alcohol use/withdrawal, cirrhosis with esophageal varices, and GI bleed who is admitted for alcohol withdrawal and workup for GI bleed. #Alcohol withdrawal #Chronic alcohol use #Alcoholic hepatitis #Polysubstance use #? Esophgitis secondary to multiple episodes of emesis Reports sensation of bugs crawling on skin, vision and auditory ulceration for the past few days. U-tox positive for marijuana and benzodiazepines. Initial AST 180, ALT 61, improving. Plan: ? CIWA protocol ? Lorazepam for CIWA score of 5-20 ? Diazepam for CIWA greater than 20 ? Thiamine 100 mg p.o. daily ? Folic acid 1 mg p.o. daily ? Maalox 15 mg p.o. 4 times daily as needed ? Extensive counseling of alcohol cessation ? Seizure precautions #Upper GI bleed #Hx Esophageal varices grade I #Liver cirrhosis Presented complaining of hematemesis, nausea and abdominal pain. Previous history of hospitalization for esophageal varices and cirrhosis. Hemoglobin currently stable at 12, hematocrit 35.7. Last EGD done on 09/09/2024 showed esophageal varices in the lower third of esophagus. Child-Jacobson score: 7 (class B indication for transplant evaluation). Plan: ? GI consulted, appreciate recommendations ? Octreotide drip at lower rate given bradycardia ? Ceftriaxone 1 mg IV daily ? Protonix 40 mg IV twice daily ? D5W normal saline at 100 mL/h ? Monitor CBC Hospital management: Disposition: Telemetry, GI plans for endoscopy today, n.p.o., CIWAs have improved. Lines: peripheral IV DVT prophylaxis: SCDs GI prophylaxis: pantoprazole BID CODE STATUS: Full code Patient was seen and discussed with my attending physician Dr. Shabbir LAW. Russ Hawk DO PGY-1. Attending Provider Attestation/Addendum I attest that I was physically present for the evaluation, physical examination, lab and imaging review of the patient with the residents. I discussed the case with the residents and agree with the findings and plans of care as documented above. No Shea MD
[2024-11-02] MEDS: METOCLOPRAMIDE INJ 5 MG/ML VIAL 2 ML IVP (17:46)
[2024-11-02] MEDS: MELATONIN 3 MG TABLET 6 MG PO (21:05)
[2024-11-03] VITALS (7 sets, daily range): BP systolic 104–123; BP diastolic 60–83; PULSE 37–77; RESP 11–18; TEMP 36.3–37.1; O2SAT 99–100
[2024-11-03] MEDS: METOCLOPRAMIDE INJ 5 MG/ML VIAL 2 ML IVP ×5 (00:06→23:29)
[2024-11-03] MEDS: MG HYD/AL HYD/SIME (Maalox Reg) SUSP 30 ML UDC 15 ML PO (00:11)
[2024-11-03] MEDS: HYOSCYAMINE SULF 0.125 MG TAB.SUBL 0.25 MG PO ×6 (02:51→21:02)
[2024-11-03 06:28] LABS: Basophils # (Auto) 0.0 Thou/mm3 (0.0-0.2); Basophils % (Auto) 1 % (0-2.5); Eosinophils # (Auto) 0.1 Thou/mm3 (0.0-0.5); Eosinophils % (Auto) 3 % (0-10); Hematocrit 35.9 % (41.0-53.0); Hemoglobin 11.8 g/dL (13.5-16.0); Immature Granulocytes Auto 0.00 Thou/mm3 (0.00-0.00); Lymphocytes # (Auto) 1.3 Thou/mm3 (1.0-4.8); Lymphocytes % (Auto) 41 % (10-50); Mean Corpuscular HGB Conc 32.9 g/dl (31.0-37.0); Mean Corpuscular Hemoglobin 30.9 pg (25.0-35.0); Mean Corpuscular Volume 94 fL (80-100); Monocytes # (Auto) 0.4 Thou/mm3 (0.0-0.8); Monocytes % (Auto) 14 % (0-12); Neutrophils # (Auto) 1.3 Thou/mm3 (1.8-7.7); Neutrophils % (Auto) 41 % (37-80); Nucleated Red Blood Cell # 0.00 Thou/mm3 (0.00-0.00); Nucleated Red Blood Cell % 0 /100 WBC (0); Platelet Count 138 Thou/mm3 (140-440); RDW Standard Deviation 54.5 fL (35.1-43.9); Red Blood Count 3.82 Miln/mm3 (4.50-5.90); White Blood Count 3.1 Thou/mm3 (3.8-10.6)
[2024-11-03 06:54] LABS: Alanine Aminotransferase 47 U/L (10-49); Albumin, Serum 4.0 gm/dL (3.5-5.0); Albumin/Globulin Ratio 1.5 (1.2-2.2); Alkaline Phosphatase 143 U/L (46-116); Anion Gap 7 (7-16); Aspartate Amino Transferase 106 U/L (0-34); BUN/Creatinine Ratio 6 Ratio (12-20); Bilirubin,Total 0.4 mg/dL (0.3-1.2); Blood Urea Nitrogen < 5 mg/dL (9-23); Calcium 8.6 mg/dL (8.3-10.6); Calcium (Corrected) 8.6 mg/dL (8.5-10.1); Carbon Dioxide 24.8 mMol/L (20.0-31.0); Chloride 106 mMol/L (98-107); Creatinine (Component) 0.9 mg/dL (0.6-1.3); Estimated Creatinine Clearance 99.2 mL/min (>60); Globulin 2.7 gm/dL (2.3-3.5); Glucose 121 mg/dL (74-106); Magnesium 2.1 mg/dL (1.6-2.6); Osmolality,Calculated 273 (275-295); Phosphorous 4.0 mg/dL (2.4-5.1); Potassium 3.5 mMol/L (3.4-5.1); Sodium 138 mMol/L (136-145); Total Protein 6.7 gm/dL (5.7-8.2); eGFR > 60 See Note
[2024-11-03] MEDS: cefTRIAXone/D5w 1gm IV premix 1 GM/50 ML BAG IV (08:39)
[2024-11-03] MEDS: THIAMINE INJ 100 MG/ML VIAL 2 ML IVP (08:39)
[2024-11-03] MEDS: DEXTROSE 5%-NS 1,000 ML 100 ML IV (08:45)
[2024-11-03] MEDS: FOLIC ACID INJ 1 MG/0.2 ML IVP (09:23)
--- NOTE | 2024-11-03 12:00 | ESPR_ITS ---
Documentation for date of: 11/03/24 Subjective Subjective Interval history: At bedside today, patient states she is feeling well and denies any new complaints. Appears calm and more comfortable compared to yesterday. States that he still has some anxiety and still feels like bugs are crawling on his skin but denies any visual or auditory hallucination. CIWA score has been around 8 and 9. He has been started on chlordiazepoxide 25 mg every 6 hours. Underwent EGD with gastroenterology yesterday, was found to have grade 1 esophageal varices and a few nonbleeding erosion in GE junction, erythematous mucosa in stomach but no active bleeding. Continues to be on octreotide drip, is to complete 5 days course. Has been on PUD diet, tolerating well. Vital signs are stable except for asymptomatic bradycardia, hemoglobin is stable. Exam Vital Signs Temp Pulse Resp BP Pulse Ox O2 Del Method O2 Flow Rate 98.4 F 63 17 104/70 100 Room Air 3 11/03/24 08:00 11/03/24 08:00 11/03/24 08:00 11/03/24 08:00 11/03/24 08:00 11/03/24 08:00 11/02/24 20:00 Narrative Exam Gen: Well-developed and well-nourished male, appears mildly anxious HEENT: NCAT, PERRLA, EOMI, MMM, anicteric conjunctivae. CVS: normal S1 and S2. RRR. No M/R/G. Resp: CTA B/L. No rhonchi, rales, crackles or wheezing. Abd: Soft, nontender, non-distended. BS+ in all 4 quadrants. MSK: Good ROM in BUE & BLE. No edema or rash. Neuro: CN II-XII grossly intact. Strength 5/5 in BUE & BLE. Alert and oriented x3, mild tremor on arm extension Objective Labs 11/04/24 05:50 11/04/24 05:50 Labs: Laboratory Results - last 24 hr 11/03/24 05:30 WBC 3.1 L RBC 3.82 L Hgb 11.8 L Hct 35.9 L MCV 94 MCH 30.9 MCHC 32.9 RDW Std Deviation 54.5 H Plt Count 138 L Neut % (Auto) 41 Lymph % (Auto) 41 [place] % (Auto) 14 H Eos % (Auto) 3 Baso % (Auto) 1 Neut # (Auto) 1.3 L Lymph # (Auto) 1.3 [place] # (Auto) 0.4 Eos # (Auto) 0.1 Baso # (Auto) 0.0 Immature Gran # (Auto) 0.00 Absolute Nucleated RBC 0.00 Immature Gran % 0 Nucleated RBC % 0 Sodium 138 Potassium 3.5 D Chloride 106 Carbon Dioxide 24.8 Anion Gap 7 BUN < 5 L Creatinine 0.9 Estim Creat Clear Calc 99.2 eGFR > 60 BUN/Creatinine Ratio 6 L Glucose 121 H Calculated Osmolality 273 L Calcium 8.6 Corrected Calcium 8.6 Phosphorus 4.0 Magnesium 2.1 Total Bilirubin 0.4 AST 106 H ALT 47 Alkaline Phosphatase 143 H Total Protein 6.7 Albumin 4.0 Globulin 2.7 Albumin/Globulin Ratio 1.5 Quality Measures Quality Measures none Assessment & Plan Assessment Current Active Medications: Generic Name Dose Route Start Last Admin Trade Name Freq PRN Reason Stop Dose Admin Acetaminophen 650 mg 11/01/24 03:53 11/02/24 04:04 Acetaminophen 325 Mg Tablet PO 12/01/24 03:52 650 mg Q6H PRN Administration PAIN SCALE 1-3 (mild Al Hydrox/Mg Hydrox/Simethicone 15 ml 11/01/24 12:02 11/03/24 00:11 Mg Hyd/Al Hyd/Julian (Maalox Reg) Susp 30 Ml Udc PO 12/01/24 12:01 15 ml QID PRN Administration Throat pain Chlordiazepoxide HCl 25 mg 11/03/24 07:45 11/03/24 11:47 Chlordiazepoxide Hcl 25 Mg Capsule PO 11/08/24 07:44 25 mg Q6HR APOORVA Administration Diazepam 10 mg 11/01/24 09:02 11/01/24 09:26 Diazepam Inj 5 Mg/Ml Vial 2 Ml IVP 11/06/24 09:59 10 mg Q2HR PRN Administration CIWA >20 Folic Acid 1 mg 11/04/24 09:00 Folic Acid 1 Mg Tablet PO 12/04/24 08:59 QDAY APOORVA Folic Acid 1 mg 11/01/24 09:00 11/03/24 09:23 Folic Acid Inj 1 Mg/0.2 Ml IVP 11/04/24 08:59 1 mg QDAY APOORVA Administration Hyoscyamine 0.25 mg 11/01/24 10:00 11/03/24 09:24 Hyoscyamine Sulf 0.125 Mg Tab.Subl PO 12/01/24 09:59 0.25 mg Q4HR APOORVA Administration Ceftriaxone Sodium/Dextrose 1 gm in 50 mls @ 100 mls/hr 11/02/24 09:00 11/03/24 08:39 Rocephin/D5w 1gm Iv Premix IV 11/08/24 08:59 100 mls/hr QDAY APOORVA Administration Dextrose/Sodium Chloride 1,000 mls @ 100 mls/hr 11/02/24 09:15 11/03/24 08:45 D5-Ns IV 12/02/24 09:14 100 mls/hr .Q10H APOORVA Administration Lorazepam 1 mg 11/01/24 09:00 11/03/24 08:39 Lorazepam 0.5 Mg Tablet PO 11/06/24 08:59 1 mg Q4HR PRN Administration CIWA 5-10 Lorazepam 2 mg 11/01/24 09:00 11/01/24 18:08 Lorazepam 0.5 Mg Tablet PO 11/06/24 09:59 2 mg Q2HR PRN Administration CIWA 11-15 Lorazepam 4 mg 11/01/24 10:46 Lorazepam 0.5 Mg Tablet PO 11/06/24 09:59 Q2HR PRN CIWA 16-20/Seizures. Melatonin 6 mg 11/01/24 21:00 11/02/24 21:05 Melatonin 3 Mg Tablet PO 12/01/24 20:59 6 mg HS APOORVA Administration Metoclopramide HCl 5 mg 11/02/24 18:00 11/03/24 11:47 Metoclopramide Inj 5 Mg/Ml Vial 2 Ml IVP 12/02/24 17:59 5 mg Q6HR APOORVA Administration Protocol Ondansetron HCl 4 mg 11/01/24 03:53 11/01/24 13:49 Ondansetron Inj 2 Mg/Ml Inj 2 Ml IVP 12/01/24 03:52 4 mg Q6H PRN Administration NAUSEA OR VOMITING Protocol Pantoprazole Sodium 40 mg 11/01/24 09:00 11/03/24 08:40 Pantoprazole Inj 40 Mg Vial IVP 12/01/24 08:59 40 mg BID APOORVA Administration Thiamine HCl 100 mg 11/01/24 09:00 11/03/24 08:39 Thiamine Inj 100 Mg/Ml Vial 2 Ml IVP 11/04/24 08:59 100 mg QDAY APOORVA Administration Thiamine HCl 100 mg 11/04/24 09:00 Thiamine 100 Mg Tablet PO 12/04/24 08:59 QDAY APOORVA Trazodone HCl 50 mg 11/01/24 21:00 Trazodone Hcl 50 Mg Tablet PO 12/01/24 20:59 On Hold: 11/01/24 21:00 HS APOORVA Plan Patient is 29-year-old male with a history of alcohol use/withdrawal, cirrhosis with esophageal varices, and GI bleed who is admitted for alcohol withdrawal and workup for GI bleed. #Upper GI bleed #Hx Esophageal varices grade I #Liver cirrhosis #Gastritis #Distal esophageal erosion Presented complaining of hematemesis, nausea and abdominal pain. Previous history of hospitalization for esophageal varices and cirrhosis. Hemoglobin currently stable at 12, hematocrit 35.7. Last EGD done on 09/09/2024 showed esophageal varices in the lower third of esophagus. Child-Jacobson score: 7 (class B indication for transplant evaluation). Underwent EGD yesterday, was found to have grade 1 esophageal varices, gastritis and distal esophageal erosion Continues to be on octreotide drip Will continue with Rocephin and Protonix IV Patient received IV hydration, currently tolerating diet well Hemoglobin currently stable, we will continue to monitor closely #Alcohol withdrawal #Chronic alcohol use #Polysubstance use Reports sensation of bugs crawling on skin, vision and auditory ulceration for the past few days. U-tox positive for marijuana and benzodiazepines. Initial AST 180, ALT 61, improving. Continues to be on CIWA protocol with as needed lorazepam/diazepam Started on chlordiazepoxide 25 mg every 6 hours Continues to be on thiamine, folic acid Extensive counseling of alcohol cessation Seizure precautions Disposition: Med/tele for management of upper GI bleeding on octreotide drip and alcohol withdrawal on CIWA protocol DVT prophylaxis: SCDs GI prophylaxis: pantoprazole BID CODE STATUS: Full code
[2024-11-03] MEDS: OCTREOTIDE ACET INJ 1,000 MCG in SODIUM CHLORIDE 0.9% 100 ML 3.06 MCG IV (14:14)
[2024-11-03] MEDS: DIAZEPAM INJ 5 MG/ML VIAL 2 ML 2 MG IVP (15:10)
--- NOTE | 2024-11-03 17:49 | ESPR_ITS ---
Documentation for date of: 11/03/24 Subjective Subjective Interval history: Hemoglobin hematocrit slight drop to 8.3 and 26.0 Upper endoscopy showed distal esophageal erosions and gastritis Exam Vital Signs Temp Pulse Resp BP Pulse Ox O2 Del Method O2 Flow Rate 98.7 F 60 16 121/83 99 Nasal Cannula 2 11/03/24 16:00 11/03/24 16:00 11/03/24 16:00 11/03/24 16:00 11/03/24 16:00 11/03/24 16:00 11/03/24 16:00 Objective Labs 11/03/24 05:30 11/03/24 05:30 Labs: Laboratory Results - last 24 hr 11/03/24 05:30 WBC 3.1 L RBC 3.82 L Hgb 11.8 L Hct 35.9 L MCV 94 MCH 30.9 MCHC 32.9 RDW Std Deviation 54.5 H Plt Count 138 L Neut % (Auto) 41 Lymph % (Auto) 41 [place] % (Auto) 14 H Eos % (Auto) 3 Baso % (Auto) 1 Neut # (Auto) 1.3 L Lymph # (Auto) 1.3 [place] # (Auto) 0.4 Eos # (Auto) 0.1 Baso # (Auto) 0.0 Immature Gran # (Auto) 0.00 Absolute Nucleated RBC 0.00 Immature Gran % 0 Nucleated RBC % 0 Sodium 138 Potassium 3.5 D Chloride 106 Carbon Dioxide 24.8 Anion Gap 7 BUN < 5 L Creatinine 0.9 Estim Creat Clear Calc 99.2 eGFR > 60 BUN/Creatinine Ratio 6 L Glucose 121 H Calculated Osmolality 273 L Calcium 8.6 Corrected Calcium 8.6 Phosphorus 4.0 Magnesium 2.1 Total Bilirubin 0.4 AST 106 H ALT 47 Alkaline Phosphatase 143 H Total Protein 6.7 Albumin 4.0 Globulin 2.7 Albumin/Globulin Ratio 1.5 Impressions Impression: Distal esophageal erosions Gastritis Continue current management Assessment & Plan A&P Narrative # Pain abdomen with nausea vomiting in the setting of chronic liver disease secondary to alcohol with some drop in hemoglobin hematocrit # Acute alcohol withdrawal Plan N.p.o. midnight tonight Consent obtained for fiberoptic esophagogastroduodenoscopy with possible therapeutic intervention under intravenous moderate sedation scheduled for tomorrow IV Protonix Serial CBC Continue present treatment for alcohol withdrawal symptoms Will follow the patient Thank you very much for the opportunity to participate in the care of this patient Time Spent With Patient Time: Total time spent is greater than 50% in coordination of care (as documented) at patient's floor/unit and/or counseling patient:
[2024-11-03] MEDS: MELATONIN 3 MG TABLET 6 MG PO (20:23)
[2024-11-04] VITALS (7 sets, daily range): BP systolic 93–133; BP diastolic 61–74; PULSE 44–72; RESP 12–19; TEMP 36.3–36.8; O2SAT 95–100
[2024-11-04] MEDS: HYOSCYAMINE SULF 0.125 MG TAB.SUBL 0.25 MG PO ×6 (01:47→21:16)
[2024-11-04] MEDS: METOCLOPRAMIDE INJ 5 MG/ML VIAL 2 ML IVP ×4 (05:12→23:23)
[2024-11-04 06:22] LABS: Basophils # (Auto) 0.0 Thou/mm3 (0.0-0.2); Basophils % (Auto) 1 % (0-2.5); Eosinophils # (Auto) 0.1 Thou/mm3 (0.0-0.5); Eosinophils % (Auto) 3 % (0-10); Hematocrit 38.0 % (41.0-53.0); Hemoglobin 12.4 g/dL (13.5-16.0); Immature Granulocytes Auto 0.01 Thou/mm3 (0.00-0.00); Lymphocytes # (Auto) 1.4 Thou/mm3 (1.0-4.8); Lymphocytes % (Auto) 31 % (10-50); Mean Corpuscular HGB Conc 32.6 g/dl (31.0-37.0); Mean Corpuscular Hemoglobin 30.6 pg (25.0-35.0); Mean Corpuscular Volume 94 fL (80-100); Monocytes # (Auto) 0.6 Thou/mm3 (0.0-0.8); Monocytes % (Auto) 13 % (0-12); Neutrophils # (Auto) 2.3 Thou/mm3 (1.8-7.7); Neutrophils % (Auto) 53 % (37-80); Nucleated Red Blood Cell # 0.00 Thou/mm3 (0.00-0.00); Nucleated Red Blood Cell % 0 /100 WBC (0); Platelet Count 165 Thou/mm3 (140-440); RDW Standard Deviation 54.6 fL (35.1-43.9); Red Blood Count 4.05 Miln/mm3 (4.50-5.90); White Blood Count 4.4 Thou/mm3 (3.8-10.6)
[2024-11-04 06:44] LABS: Alanine Aminotransferase 41 U/L (10-49); Albumin, Serum 4.4 gm/dL (3.5-5.0); Albumin/Globulin Ratio 1.5 (1.2-2.2); Alkaline Phosphatase 145 U/L (46-116); Anion Gap 9 (7-16); Aspartate Amino Transferase 64 U/L (0-34); BUN/Creatinine Ratio 6 Ratio (12-20); Bilirubin,Total 0.4 mg/dL (0.3-1.2); Blood Urea Nitrogen < 5 mg/dL (9-23); Calcium 9.1 mg/dL (8.3-10.6); Calcium (Corrected) 9.1 mg/dL (8.5-10.1); Carbon Dioxide 26.0 mMol/L (20.0-31.0); Chloride 103 mMol/L (98-107); Creatinine (Component) 0.9 mg/dL (0.6-1.3); Estimated Creatinine Clearance 99.2 mL/min (>60); Globulin 2.9 gm/dL (2.3-3.5); Glucose 97 mg/dL (74-106); Magnesium 2.2 mg/dL (1.6-2.6); Osmolality,Calculated 272 (275-295); Phosphorous 4.3 mg/dL (2.4-5.1); Potassium 3.6 mMol/L (3.4-5.1); Sodium 138 mMol/L (136-145); Total Protein 7.3 gm/dL (5.7-8.2); eGFR > 60 See Note
[2024-11-04] MEDS: FOLIC ACID 1 MG TABLET PO (08:26)
[2024-11-04] MEDS: cefTRIAXone/D5w 1gm IV premix 1 GM/50 ML BAG IV (08:26)
[2024-11-04] MEDS: THIAMINE 100 MG TABLET PO (08:26)
--- NOTE | 2024-11-04 12:00 | PC.NURSE ---
1200 Chlordizaepoxide Librium dose was not administered due to a change in order. Per MDs order dose will be given at 2100. Chlordizaepoxide HCL 25mg returned to [facility] ([facility]).
--- NOTE | 2024-11-04 15:12 | ESPR_ITS ---
<Statement entered by Timothy Richardson MD - 11/05/24 07:26> Patient examined and case discussed with the team including attending physician. Note reviewed, I agree with the care plan as documented. Please refer to the note below for further details. - Timothy Richardson MD, PGY 3 Disclaimer: The document may contain phonetic/typographic errors due to voice recognition software. These errors are purely due to imperfections in the software program. Documentation for date of: 11/04/24 Subjective Subjective Interval history: Patient seen and examined at bedside. Patient complains of pain in the epigastric region. CIWA scores have ranged from 0 to 9. Hemoglobin 12.4 and stable, blood chemistry stable, AST and ALT downtrending and nearly normalized.? Vitals significant for bradycardia in the 40s. Continuing octreotide and CIWA protocol. Exam Vital Signs Temp Pulse Resp BP Pulse Ox O2 Del Method O2 Flow Rate 98 F 51 L 17 112/65 98 Nasal Cannula 2 11/04/24 12:00 11/04/24 12:00 11/04/24 12:11/04/24 12:00 11/04/24 12:00 11/04/24 12:11/04/24 12:00 Narrative Exam General: Lethargic, mild tremor in the hands bilaterally. In no acute distress. Conversational and non-toxic appearing. Neurologic:No gross neurological deficit, patient able to move all 4 extremities. HEENT: Normocephalic, atraumatic, mucous membranes moist. Pupils reactive to light. Heart: Regular rate and rhythm, normal S1 and S2, no murmurs. Lungs: Clear to auscultation bilaterally with no wheezing or crackles. Abdomen: Soft, nondistended, pain on palpation of the mid epigastric region, positive bowel sounds. No guarding or rebound tenderness. Extremities: No edema. 2+ radial and dorsalis pedis pulses bilaterally. Skin: Warm. Dry. No rash or ecchymoses. Objective Labs 11/05/24 05:23 11/05/24 05:23 Labs: Laboratory Results - last 24 hr 11/04/24 05:50 WBC 4.4 D RBC 4.05 L Hgb 12.4 L Hct 38.0 L MCV 94 MCH 30.6 MCHC 32.6 RDW Std Deviation 54.6 H Plt Count 165 Neut % (Auto) 53 Lymph % (Auto) 31 [place] % (Auto) 13 H Eos % (Auto) 3 Baso % (Auto) 1 Neut # (Auto) 2.3 Lymph # (Auto) 1.4 [place] # (Auto) 0.6 Eos # (Auto) 0.1 Baso # (Auto) 0.0 Immature Gran # (Auto) 0.01 H Absolute Nucleated RBC 0.00 Immature Gran % 0 Nucleated RBC % 0 Sodium 138 Potassium 3.6 Chloride 103 Carbon Dioxide 26.0 Anion Gap 9 BUN < 5 L Creatinine 0.9 Estim Creat Clear Calc 99.2 eGFR > 60 BUN/Creatinine Ratio 6 L Glucose 97 Calculated Osmolality 272 L Calcium 9.1 Corrected Calcium 9.1 Phosphorus 4.3 Magnesium 2.2 Total Bilirubin 0.4 AST 64 H ALT 41 Alkaline Phosphatase 145 H Total Protein 7.3 Albumin 4.4 Globulin 2.9 Albumin/Globulin Ratio 1.5 Quality Measures Quality Measures none Assessment & Plan Assessment Current Active Medications: Generic Name Dose Route Start Last Admin Trade Name Freq PRN Reason Stop Dose Admin Acetaminophen 650 mg 11/01/24 03:53 11/02/24 04:04 Acetaminophen 325 Mg Tablet PO 12/01/24 03:52 650 mg Q6H PRN Administration PAIN SCALE 1-3 (mild Al Hydrox/Mg Hydrox/Simethicone 15 ml 11/01/24 12:02 11/03/24 00:11 Mg Hyd/Al Hyd/Julian (Maalox Reg) Susp 30 Ml Udc PO 12/01/24 12:01 15 ml QID PRN Administration Throat pain Chlordiazepoxide HCl 25 mg 11/04/24 21:00 Chlordiazepoxide Hcl 25 Mg Capsule PO 11/09/24 20:59 BID APOORVA Diazepam 10 mg 11/01/24 09:02 11/01/24 09:26 Diazepam Inj 5 Mg/Ml Vial 2 Ml IVP 11/06/24 09:59 10 mg Q2HR PRN Administration CIWA >20 Folic Acid 1 mg 11/04/24 09:00 11/04/24 08:26 Folic Acid 1 Mg Tablet PO 12/04/24 08:59 1 mg QDAY APOORVA Administration Hyoscyamine 0.25 mg 11/01/24 10:00 11/04/24 14:40 Hyoscyamine Sulf 0.125 Mg Tab.Subl PO 12/01/24 09:59 0.25 mg Q4HR APOORVA Administration Ceftriaxone Sodium/Dextrose 1 gm in 50 mls @ 100 mls/hr 11/02/24 09:00 11/04/24 08:26 Rocephin/D5w 1gm Iv Premix IV 11/08/24 08:59 100 mls/hr QDAY APOORVA Administration Lorazepam 1 mg 11/01/24 09:00 11/04/24 14:40 Lorazepam 0.5 Mg Tablet PO 11/06/24 08:59 1 mg Q4HR PRN Administration CIWA 5-10 Lorazepam 2 mg 11/01/24 09:00 11/01/24 18:08 Lorazepam 0.5 Mg Tablet PO 11/06/24 09:59 2 mg Q2HR PRN Administration CIWA 11-15 Lorazepam 4 mg 11/01/24 10:46 Lorazepam 0.5 Mg Tablet PO 11/06/24 09:59 Q2HR PRN CIWA 16-20/Seizures. Melatonin 6 mg 11/01/24 21:00 11/03/24 20:23 Melatonin 3 Mg Tablet PO 12/01/24 20:59 6 mg HS APOORVA Administration Metoclopramide HCl 5 mg 11/02/24 18:00 11/04/24 11:42 Metoclopramide Inj 5 Mg/Ml Vial 2 Ml IVP 12/02/24 17:59 5 mg Q6HR APOORVA Administration Protocol Ondansetron HCl 4 mg 11/01/24 03:53 11/01/24 13:49 Ondansetron Inj 2 Mg/Ml Inj 2 Ml IVP 12/01/24 03:52 4 mg Q6H PRN Administration NAUSEA OR VOMITING Protocol Pantoprazole Sodium 40 mg 11/01/24 09:00 11/04/24 08:26 Pantoprazole Inj 40 Mg Vial IVP 12/01/24 08:59 40 mg BID APOORVA Administration Thiamine HCl 100 mg 11/04/24 09:00 11/04/24 08:26 Thiamine 100 Mg Tablet PO 12/04/24 08:59 100 mg QDAY APOORVA Administration Plan Patient is 29-year-old male with a history of alcohol use/withdrawal, cirrhosis with esophageal varices, and GI bleed who is admitted for alcohol withdrawal and workup for GI bleed. #Upper GI bleed #Hx Esophageal varices grade I #Liver cirrhosis #Gastritis #Distal esophageal erosion Presented complaining of hematemesis, nausea and abdominal pain. Previous history of hospitalization for esophageal varices and cirrhosis. Hemoglobin currently stable at 12, hematocrit 35.7. Last EGD done on 09/09/2024 showed esophageal varices in the lower third of esophagus. Child-Jacobson score: 7 (class B indication for transplant evaluation). Underwent EGD, was found to have grade 1 esophageal varices, gastritis and distal esophageal erosion Plan: Continues to be on octreotide drip Will continue with Rocephin and Protonix IV Patient received IV hydration, currently tolerating diet well Hemoglobin currently stable, we will continue to monitor closely Sucralfate for midepigastric pain #Alcohol withdrawal #Chronic alcohol use #Polysubstance use Reports sensation of bugs crawling on skin, vision and auditory ulceration for the past few days. U-tox positive for marijuana and benzodiazepines. Initial AST 180, ALT 61, improving. Plan: Lorazepam for CIWA score of 5-20 Diazepam for CIWA greater than 20 Started on chlordiazepoxide 25 mg every 6 hours Continues to be on thiamine, folic acid Extensive counseling of alcohol cessation Seizure precautions Disposition: Med/tele for management of upper GI bleeding continuing on octreotide drip and alcohol withdrawal on CIWA protocol. DVT prophylaxis: SCDs GI prophylaxis: pantoprazole BID CODE STATUS: Full code Patient was seen and discussed with my attending physician Dr. Shabbir LAW and my senior resident Dr. Debra LAW PGY-3. Russ Hawk DO PGY-1. Attending Provider Attestation/Addendum I attest that I was physically present for the evaluation, physical examination, lab and imaging review of the patient with the residents. I discussed the case with the residents and agree with the findings and plans of care as documented above. No Shea MD
[2024-11-04 16:33] LABS: Lipase 38 U/L (12-53)
[2024-11-04] MEDS: OCTREOTIDE ACET INJ 1,000 MCG in SODIUM CHLORIDE 0.9% 100 ML 3.06 MCG IV (16:57)
[2024-11-04] MEDS: SUCRALFATE 1 GM TABLET PO (17:00)
--- NOTE | 2024-11-04 19:14 | PD.IMPROG ---
Documentation for date of: 11/04/24 Subjective Subjective Interval history: Patient evaluated Upper endoscopy showed GE junction erosions gastritis Alcohol withdrawal improving Exam Vital Signs Temp Pulse Resp BP Pulse Ox O2 Del Method O2 Flow Rate 98.3 F 72 18 133/73 H 98 Nasal Cannula 2 11/04/24 16:00 11/04/24 16:00 11/04/24 16:00 11/04/24 16:00 11/04/24 16:00 11/04/24 16:00 11/04/24 16:00 Objective Labs 11/04/24 05:50 11/04/24 05:50 Labs: Laboratory Results - last 24 hr 11/04/24 05:50 WBC 4.4 D RBC 4.05 L Hgb 12.4 L Hct 38.0 L MCV 94 MCH 30.6 MCHC 32.6 RDW Std Deviation 54.6 H Plt Count 165 Neut % (Auto) 53 Lymph % (Auto) 31 [place] % (Auto) 13 H Eos % (Auto) 3 Baso % (Auto) 1 Neut # (Auto) 2.3 Lymph # (Auto) 1.4 [place] # (Auto) 0.6 Eos # (Auto) 0.1 Baso # (Auto) 0.0 Immature Gran # (Auto) 0.01 H Absolute Nucleated RBC 0.00 Immature Gran % 0 Nucleated RBC % 0 Sodium 138 Potassium 3.6 Chloride 103 Carbon Dioxide 26.0 Anion Gap 9 BUN < 5 L Creatinine 0.9 Estim Creat Clear Calc 99.2 eGFR > 60 BUN/Creatinine Ratio 6 L Glucose 97 Calculated Osmolality 272 L Calcium 9.1 Corrected Calcium 9.1 Phosphorus 4.3 Magnesium 2.2 Total Bilirubin 0.4 AST 64 H ALT 41 Alkaline Phosphatase 145 H Total Protein 7.3 Albumin 4.4 Globulin 2.9 Albumin/Globulin Ratio 1.5 Lipase 38 Impressions Impression: Upper GI bleed secondary to distal esophageal erosions Gastritis 1+ esophageal varices not large enough for band ligation Continue current management Assessment & Plan A&P Narrative # Pain abdomen with nausea vomiting in the setting of chronic liver disease secondary to alcohol with some drop in hemoglobin hematocrit # Acute alcohol withdrawal Plan N.p.o. midnight tonight Consent obtained for fiberoptic esophagogastroduodenoscopy with possible therapeutic intervention under intravenous moderate sedation scheduled for tomorrow IV Protonix Serial CBC Continue present treatment for alcohol withdrawal symptoms Will follow the patient Thank you very much for the opportunity to participate in the care of this patient Time Spent With Patient Time: Total time spent is greater than 50% in coordination of care (as documented) at patient's floor/unit and/or counseling patient:
[2024-11-04] MEDS: MELATONIN 3 MG TABLET 6 MG PO (21:16)
[2024-11-04] MEDS: ACETAMINOPHEN 325 MG TABLET 650 MG PO (23:20)
[2024-11-05] VITALS (7 sets, daily range): BP systolic 105–112; BP diastolic 61–81; PULSE 46–80; RESP 12–18; TEMP 36.2–37; O2SAT 97–99; BMI 24.7
[2024-11-05] MEDS: HYOSCYAMINE SULF 0.125 MG TAB.SUBL 0.25 MG PO ×6 (00:59→21:20)
[2024-11-05] MEDS: METOCLOPRAMIDE INJ 5 MG/ML VIAL 2 ML IVP ×4 (05:21→23:40)
[2024-11-05 06:11] LABS: Basophils # (Auto) 0.0 Thou/mm3 (0.0-0.2); Basophils % (Auto) 1 % (0-2.5); Eosinophils # (Auto) 0.1 Thou/mm3 (0.0-0.5); Eosinophils % (Auto) 4 % (0-10); Hematocrit 36.8 % (41.0-53.0); Hemoglobin 12.1 g/dL (13.5-16.0); Immature Granulocytes Auto 0.00 Thou/mm3 (0.00-0.00); Lymphocytes # (Auto) 1.4 Thou/mm3 (1.0-4.8); Lymphocytes % (Auto) 41 % (10-50); Mean Corpuscular HGB Conc 32.9 g/dl (31.0-37.0); Mean Corpuscular Hemoglobin 30.9 pg (25.0-35.0); Mean Corpuscular Volume 94 fL (80-100); Monocytes # (Auto) 0.6 Thou/mm3 (0.0-0.8); Monocytes % (Auto) 16 % (0-12); Neutrophils # (Auto) 1.4 Thou/mm3 (1.8-7.7); Neutrophils % (Auto) 39 % (37-80); Nucleated Red Blood Cell # 0.00 Thou/mm3 (0.00-0.00); Nucleated Red Blood Cell % 0 /100 WBC (0); Platelet Count 150 Thou/mm3 (140-440); RDW Standard Deviation 55.7 fL (35.1-43.9); Red Blood Count 3.91 Miln/mm3 (4.50-5.90); White Blood Count 3.5 Thou/mm3 (3.8-10.6)
[2024-11-05 06:33] LABS: Alanine Aminotransferase 37 U/L (10-49); Albumin, Serum 4.2 gm/dL (3.5-5.0); Albumin/Globulin Ratio 1.8 (1.2-2.2); Alkaline Phosphatase 145 U/L (46-116); Anion Gap 11 (7-16); Aspartate Amino Transferase 56 U/L (0-34); BUN/Creatinine Ratio 7 Ratio (12-20); Bilirubin,Total 0.4 mg/dL (0.3-1.2); Blood Urea Nitrogen 6 mg/dL (9-23); Calcium 9.2 mg/dL (8.3-10.6); Calcium (Corrected) 9.2 mg/dL (8.5-10.1); Carbon Dioxide 26.5 mMol/L (20.0-31.0); Chloride 103 mMol/L (98-107); Creatinine (Component) 0.9 mg/dL (0.6-1.3); Estimated Creatinine Clearance 99.2 mL/min (>60); Globulin 2.4 gm/dL (2.3-3.5); Glucose 113 mg/dL (74-106); Osmolality,Calculated 278 (275-295); Potassium 3.5 mMol/L (3.4-5.1); Sodium 140 mMol/L (136-145); Total Protein 6.6 gm/dL (5.7-8.2); eGFR > 60 See Note
--- NOTE | 2024-11-05 08:55 | PD.IMPROG ---
Documentation for date of: 11/05/24 Subjective Subjective Interval history: Hemoglobin hematocrit 12.4 and 36.8 Upper endoscopy showed 1+ esophageal varices esophageal erosions and gastritis Exam Vital Signs Temp Pulse Resp BP Pulse Ox O2 Del Method O2 Flow Rate 97.4 F 53 L 18 111/61 98 Room Air 2 11/05/24 08:00 11/05/24 08:00 11/05/24 08:00 11/05/24 08:00 11/05/24 08:00 11/05/24 08:00 11/05/24 04:00 Objective Labs 11/05/24 05:23 11/05/24 05:23 Labs: Laboratory Results - last 24 hr 11/04/24 11/05/24 05:50 05:23 WBC 3.5 L RBC 3.91 L Hgb 12.1 L Hct 36.8 L MCV 94 MCH 30.9 MCHC 32.9 RDW Std Deviation 55.7 H Plt Count 150 Neut % (Auto) 39 Lymph % (Auto) 41 [place] % (Auto) 16 H Eos % (Auto) 4 Baso % (Auto) 1 Neut # (Auto) 1.4 L Lymph # (Auto) 1.4 [place] # (Auto) 0.6 Eos # (Auto) 0.1 Baso # (Auto) 0.0 Immature Gran # (Auto) 0.00 Absolute Nucleated RBC 0.00 Immature Gran % 0 Nucleated RBC % 0 Sodium 140 Potassium 3.5 Chloride 103 Carbon Dioxide 26.5 Anion Gap 11 BUN 6 L Creatinine 0.9 Estim Creat Clear Calc 99.2 eGFR > 60 BUN/Creatinine Ratio 7 L Glucose 113 H Calculated Osmolality 278 Calcium 9.2 Corrected Calcium 9.2 Total Bilirubin 0.4 AST 56 H ALT 37 Alkaline Phosphatase 145 H Total Protein 6.6 Albumin 4.2 Globulin 2.4 Albumin/Globulin Ratio 1.8 Lipase 38 Impressions Impression: Esophageal erosions Gastritis 1+ esophageal varices Continue current management Advised complete abstinence from alcohol Assessment & Plan A&P Narrative # Pain abdomen with nausea vomiting in the setting of chronic liver disease secondary to alcohol with some drop in hemoglobin hematocrit # Acute alcohol withdrawal Plan N.p.o. midnight tonight Consent obtained for fiberoptic esophagogastroduodenoscopy with possible therapeutic intervention under intravenous moderate sedation scheduled for tomorrow IV Protonix Serial CBC Continue present treatment for alcohol withdrawal symptoms Will follow the patient Thank you very much for the opportunity to participate in the care of this patient Time Spent With Patient Time: Total time spent is greater than 50% in coordination of care (as documented) at patient's floor/unit and/or counseling patient:
[2024-11-05] MEDS: cefTRIAXone/D5w 1gm IV premix 1 GM/50 ML BAG IV (09:52)
[2024-11-05] MEDS: THIAMINE 100 MG TABLET PO (09:53)
[2024-11-05] MEDS: FOLIC ACID 1 MG TABLET PO (09:53)
--- NOTE | 2024-11-05 14:58 | PD.RESPRO ---
Documentation for date of: 11/05/24 Subjective Subjective Interval history: No acute overnight events. Seen and examined at bedside and overall feeling better compared to when he was admitted but does endorse pain in his left upper abdomen and arm but vital signs have been stable. Ordered a one time dose of norco 5 and lidocaine patch and will assess for improvement. Already on maalox but added sucralfate as well. He denies any auditory, visual, or tactile hallucinations and hands stable when held out right but does endorse headache and some anxiety. Vital signs show HR of 55 and other VSS, CBC showed stable hemoglobin, chem panel showed improving LFTs. Otherwise, will require one more day of octreotide and anticipate discharge within next 24-48 hours. Exam Vital Signs Temp Pulse Resp BP Pulse Ox O2 Del Method O2 Flow Rate 97.8 F 77 18 108/69 99 Room Air 2 11/05/24 11:56 11/05/24 12:00 11/05/24 11:56 11/05/24 11:56 11/05/24 11:56 11/05/24 08:00 11/05/24 04:00 Narrative Exam General: A&Ox3, hands stable when stretched outward bilaterally. In no acute distress. Conversational and non-toxic appearing. Neurologic: No gross neurological deficit, patient able to move all 4 extremities. HEENT: Normocephalic, atraumatic, mucous membranes moist. Pupils reactive to light. Heart: Regular rate and rhythm, normal S1 and S2, no murmurs. Lungs: Clear to auscultation bilaterally with no wheezing or crackles. Abdomen: Soft, nondistended, pain on palpation of the mid epigastric region, positive bowel sounds. No guarding or rebound tenderness. Extremities: No edema. 2+ radial and dorsalis pedis pulses bilaterally. Skin: Warm. Dry. No rash or ecchymoses. Objective Labs 11/05/24 05:23 11/05/24 05:23 Labs: Laboratory Results - last 24 hr 11/04/24 11/05/24 05:50 05:23 WBC 3.5 L RBC 3.91 L Hgb 12.1 L Hct 36.8 L MCV 94 MCH 30.9 MCHC 32.9 RDW Std Deviation 55.7 H Plt Count 150 Neut % (Auto) 39 Lymph % (Auto) 41 [place] % (Auto) 16 H Eos % (Auto) 4 Baso % (Auto) 1 Neut # (Auto) 1.4 L Lymph # (Auto) 1.4 [place] # (Auto) 0.6 Eos # (Auto) 0.1 Baso # (Auto) 0.0 Immature Gran # (Auto) 0.00 Absolute Nucleated RBC 0.00 Immature Gran % 0 Nucleated RBC % 0 Sodium 140 Potassium 3.5 Chloride 103 Carbon Dioxide 26.5 Anion Gap 11 BUN 6 L Creatinine 0.9 Estim Creat Clear Calc 99.2 eGFR > 60 BUN/Creatinine Ratio 7 L Glucose 113 H Calculated Osmolality 278 Calcium 9.2 Corrected Calcium 9.2 Total Bilirubin 0.4 AST 56 H ALT 37 Alkaline Phosphatase 145 H Total Protein 6.6 Albumin 4.2 Globulin 2.4 Albumin/Globulin Ratio 1.8 Lipase 38 Quality Measures Quality Measures none Assessment & Plan Assessment Current Active Medications: Generic Name Dose Route Start Last Admin Trade Name Freq PRN Reason Stop Dose Admin Acetaminophen 650 mg 11/01/24 03:53 11/04/24 23:20 Acetaminophen 325 Mg Tablet PO 12/01/24 03:52 650 mg Q6H PRN Administration PAIN SCALE 1-3 (mild Al Hydrox/Mg Hydrox/Simethicone 15 ml 11/01/24 12:02 11/03/24 00:11 Mg Hyd/Al Hyd/Julian (Maalox Reg) Susp 30 Ml Udc PO 12/01/24 12:01 15 ml QID PRN Administration Throat pain Chlordiazepoxide HCl 25 mg 11/04/24 21:00 11/05/24 09:53 Chlordiazepoxide Hcl 25 Mg Capsule PO 11/09/24 20:59 25 mg BID APOORVA Administration Diazepam 10 mg 11/01/24 09:02 11/01/24 09:26 Diazepam Inj 5 Mg/Ml Vial 2 Ml IVP 11/06/24 09:59 10 mg Q2HR PRN Administration CIWA >20 Folic Acid 1 mg 11/04/24 09:00 11/05/24 09:53 Folic Acid 1 Mg Tablet PO 12/04/24 08:59 1 mg QDAY APOORVA Administration Hyoscyamine 0.25 mg 11/01/24 10:00 11/05/24 13:25 Hyoscyamine Sulf 0.125 Mg Tab.Subl PO 12/01/24 09:59 0.25 mg Q4HR APOORVA Administration Ceftriaxone Sodium/Dextrose 1 gm in 50 mls @ 100 mls/hr 11/02/24 09:00 11/05/24 09:52 Rocephin/D5w 1gm Iv Premix IV 11/08/24 08:59 100 mls/hr QDAY APOORVA Administration Octreotide Acetate 1,000 mcg/ 102 mls @ 3.06 mls/hr 11/04/24 15:39 11/04/24 16:57 Sodium Chloride IV 11/06/24 09:00 30 mcg/hr .Q24H APOORVA 3.06 mls/hr Protocol Administration 30 MCG/HR Lorazepam 1 mg 11/01/24 09:00 11/05/24 09:53 Lorazepam 0.5 Mg Tablet PO 11/06/24 08:59 1 mg Q4HR PRN Administration CIWA 5-10 Lorazepam 2 mg 11/01/24 09:00 11/05/24 13:24 Lorazepam 0.5 Mg Tablet PO 11/06/24 09:59 2 mg Q2HR PRN Administration CIWA 11-15 Lorazepam 4 mg 11/01/24 10:46 Lorazepam 0.5 Mg Tablet PO 11/09/24 17:32 Q2HR PRN CIWA 16-20/Seizures. Melatonin 6 mg 11/01/24 21:00 11/04/24 21:16 Melatonin 3 Mg Tablet PO 12/01/24 20:59 6 mg HS APOORVA Administration Metoclopramide HCl 5 mg 11/02/24 18:00 11/05/24 11:57 Metoclopramide Inj 5 Mg/Ml Vial 2 Ml IVP 12/02/24 17:59 5 mg Q6HR APOORVA Administration Protocol Ondansetron HCl 4 mg 11/01/24 03:53 11/01/24 13:49 Ondansetron Inj 2 Mg/Ml Inj 2 Ml IVP 12/01/24 03:52 4 mg Q6H PRN Administration NAUSEA OR VOMITING Protocol Pantoprazole Sodium 40 mg 11/01/24 09:00 11/05/24 09:52 Pantoprazole Inj 40 Mg Vial IVP 12/01/24 08:59 40 mg BID APOORVA Administration Thiamine HCl 100 mg 11/04/24 09:00 11/05/24 09:53 Thiamine 100 Mg Tablet PO 12/04/24 08:59 100 mg QDAY APOORVA Administration Plan Garcia Liu is a 29-year-old male with a history of alcohol use/withdrawal, cirrhosis with esophageal varices, and GI bleed who is admitted for alcohol withdrawal and workup for GI bleed. #Upper GI bleed #Esophageal varices, grade I #Liver cirrhosis #Gastritis #Distal esophageal erosion #Transaminitis, improving Presented complaining of hematemesis, nausea and abdominal pain. Previous history of hospitalization for esophageal varices and cirrhosis. Hemoglobin stable. Initial AST 180, ALT 61, improving. Last EGD done on 09/09/2024 showed esophageal varices in the lower third of esophagus. Child-Jacobson score: 7 (class B indication for transplant evaluation). Underwent EGD this admission and was found to have grade 1 esophageal varices, gastritis and distal esophageal erosion. ? GI following, appreciate recommendations ? Continues to be on octreotide drip ? Will continue with Rocephin and Protonix IV BID ? Hemoglobin currently stable, we will continue to monitor closely ? Sucralfate and maalox for midepigastric pain #Alcohol withdrawal #Chronic alcohol use #Polysubstance use U-tox positive for marijuana and benzodiazepines. ? Lorazepam for CIWA score of 5-20 ? Diazepam for CIWA greater than 20 ? Chlordiazepoxide 25 mg BID ? Thiamine, folic acid ? Extensive counseling of alcohol cessation ? Seizure precautions Hospital management: Disposition: Octreotide drip for 1 more day Fluids: Not indicated Diet: Peptic ulcer disease Lines: PIV DVT prophylaxis: SCDs given GI bleed GI prophylaxis: Pantoprazole BID CODE STATUS: full code ----- Plan discussed with attending physician Dr. Shabbir Juarez MD PGY-2 Internal Medicine Attending Provider Attestation/Addendum I attest that I was physically present for the evaluation, physical examination, lab and imaging review of the patient with the residents. I discussed the case with the residents and agree with the findings and plans of care as documented above. Patient seen and examined at bedside this morning. Appears comfortable and denies any new complaints. Continues to be mildly bradycardic but compared to previous days. Lab results have been stable. States that his epigastric pain has also been improving. CIWA score this morning was around 6. Which later it worsened to 12. We will continue with chlordiazepoxide 25 mg twice daily, thiamine, folate. Patient continues to be on octreotide drip, will complete dosing tomorrow morning. If patient's CIWA score becomes stable tomorrow after completion of octreotide drip, we will start planning for discharge. No Shea MD
[2024-11-05] MEDS: SUCRALFATE SUSP 1 GM/10 ML UDC PO ×2 (16:11→21:21)
[2024-11-05] MEDS: HYDROcodone/APAP 5/325 TABLET 1 TAB PO (16:11)
[2024-11-05] MEDS: LIDOCAINE 5% 1 PATCH TOP (16:11)
[2024-11-05] MEDS: MELATONIN 3 MG TABLET 6 MG PO (21:20)
[2024-11-05] MEDS: OCTREOTIDE ACET INJ 1,000 MCG in SODIUM CHLORIDE 0.9% 100 ML 3.06 MCG IV (23:43)
[2024-11-06] VITALS: BP 104/53; PULSE 57; RESP 16; TEMP 36.5; O2SAT 97
[2024-11-06] MEDS: HYOSCYAMINE SULF 0.125 MG TAB.SUBL 0.25 MG PO ×3 (01:29→09:16)
[2024-11-06 04:00] VITALS: BP 85/54; PULSE 59; PULSE 61; RESP 16; TEMP 36.5; O2SAT 99
[2024-11-06 05:34] LABS: Basophils # (Auto) 0.0 Thou/mm3 (0.0-0.2); Basophils % (Auto) 1 % (0-2.5); Eosinophils # (Auto) 0.1 Thou/mm3 (0.0-0.5); Eosinophils % (Auto) 4 % (0-10); Hematocrit 36.1 % (41.0-53.0); Hemoglobin 11.7 g/dL (13.5-16.0); Immature Granulocytes Auto 0.01 Thou/mm3 (0.00-0.00); Lymphocytes # (Auto) 1.5 Thou/mm3 (1.0-4.8); Lymphocytes % (Auto) 43 % (10-50); Mean Corpuscular HGB Conc 32.4 g/dl (31.0-37.0); Mean Corpuscular Hemoglobin 30.7 pg (25.0-35.0); Mean Corpuscular Volume 95 fL (80-100); Monocytes # (Auto) 0.6 Thou/mm3 (0.0-0.8); Monocytes % (Auto) 18 % (0-12); Neutrophils # (Auto) 1.2 Thou/mm3 (1.8-7.7); Neutrophils % (Auto) 34 % (37-80); Nucleated Red Blood Cell # 0.00 Thou/mm3 (0.00-0.00); Nucleated Red Blood Cell % 0 /100 WBC (0); Platelet Count 143 Thou/mm3 (140-440); RDW Standard Deviation 56.8 fL (35.1-43.9); Red Blood Count 3.81 Miln/mm3 (4.50-5.90); White Blood Count 3.4 Thou/mm3 (3.8-10.6)
[2024-11-06] MEDS: METOCLOPRAMIDE INJ 5 MG/ML VIAL 2 ML IVP ×2 (05:48→11:10)
[2024-11-06] MEDS: SUCRALFATE SUSP 1 GM/10 ML UDC PO (05:50)
[2024-11-06 06:00] VITALS: BMI 25.2
[2024-11-06 06:09] LABS: Alanine Aminotransferase 38 U/L (10-49); Albumin, Serum 4.2 gm/dL (3.5-5.0); Albumin/Globulin Ratio 1.8 (1.2-2.2); Alkaline Phosphatase 157 U/L (46-116); Anion Gap 8 (7-16); Aspartate Amino Transferase 53 U/L (0-34); BUN/Creatinine Ratio 8 Ratio (12-20); Bilirubin,Total 0.3 mg/dL (0.3-1.2); Blood Urea Nitrogen 8 mg/dL (9-23); Calcium 9.1 mg/dL (8.3-10.6); Calcium (Corrected) 9.1 mg/dL (8.5-10.1); Carbon Dioxide 29.6 mMol/L (20.0-31.0); Chloride 103 mMol/L (98-107); Creatinine (Component) 1.0 mg/dL (0.6-1.3); Estimated Creatinine Clearance 85.7 mL/min (>60); Globulin 2.4 gm/dL (2.3-3.5); Glucose 109 mg/dL (74-106); Osmolality,Calculated 280 (275-295); Potassium 3.9 mMol/L (3.4-5.1); Sodium 141 mMol/L (136-145); Total Protein 6.6 gm/dL (5.7-8.2); eGFR > 60 See Note
[2024-11-06 07:41] VITALS: BP 94/50; PULSE 52; RESP 16; TEMP 36.5; O2SAT 99
[2024-11-06] MEDS: THIAMINE 100 MG TABLET PO (09:16)
[2024-11-06] MEDS: cefTRIAXone/D5w 1gm IV premix 1 GM/50 ML BAG IV (09:16)
[2024-11-06] MEDS: FOLIC ACID 1 MG TABLET PO (09:17)
[2024-11-06 12:00] VITALS: BP 98/52; PULSE 60; RESP 16; TEMP 36.6; O2SAT 96
--- NOTE | 2024-11-06 12:48 | PC.NURSE ---
PATIENTS DAD WILL NOT ANSWER THE PHONE FOR PATIENT TO GET A RIDE HOME. WILL CALL [employer] FOR A TAXI
--- NOTE | 2024-11-06 12:54 | PC.NURSE ---
CALLED [employer]IST[employer]. SHE WILL CALL ME BACK WITH PATIENTS AIR LIFT OPERATOR TIME [facility] WILL BE HERE AT 1:30 TO AIR LIFT OPERATOR PATIENT
--- NOTE | 2024-11-06 13:17 | ESDS_ITS ---
<Statement entered by Dieudonne Juarez MD - 11/06/24 13:32> Note reviewed and agree with care plan as documented. Please refer to the note below for further details. Plan discussed with attending physician Dr. Brown Juarez MD PGY-2 Internal Medicine Planned Discharge Date 11/06/24 DS: Providers Provider Date of admission: 11/01/24 03:53 Primary care physician: Physician No Primary/Family Admitting Provider: Daren Lockwood MD Attending Provider on Admission: Delfino Dasilva MD Consults: 11/01/24 05:10 Consult to Gastroenterology Routine Comment: Consulting Provider: Virgilio Tello Attending Provider on DC: Delfino Dasilva MD Discharging Provider: Russ Hawk DO DS: Diagnosis Discharge Diagnosis (1) Alcohol withdrawal: Status: Acute Problem List Completed Was Problem List Reviewed/Reconciled?: Yes Hospital Course Hospital Course Hospital course: Hospital Course: Garcia Liu is a 29-year-old male with a history of alcohol use and withdrawal, cirrhosis, and esophageal varices who presented to the ED on 11/01/2024 with a chief complaint of alcohol withdrawal, shaking, and vomiting. Hemoglobin was 12 on arrival. He was experiencing formication, auditory and visual hallucinations, and his CIWA was 20 upon presentation. He was admitted for alcohol withdrawal and workup for GI bleed. The patient had an endoscopy during his stay that showed grade 1 esophageal varices and a few nonbleeding erosions at the gastroesophageal junction. He underwent a 5-day course of octreotide and was treated for symptomatic epigastric pain. The patient had a CIWA protocol kept in place during his entire hospital course. His CIWA scores improved over the course of his stay and his visual and auditory hallucinations improved. His tremors and anxiety improved. The patient is stable for discharge and is adamant about his desire to quit alcohol. He was encouraged to follow-up with his PCP regarding pharmacologic treatment for alcohol cessation. Problem List: #Upper GI bleed #Esophageal varices, grade I #Liver cirrhosis #Gastritis #Distal esophageal erosion #Transaminitis, improving #Alcohol withdrawal #Chronic alcohol use #Polysubstance use Discharge Instructions: ? Take pantoprazole, maalox, and sucralfate for abdominal pain/indigestion/dyspepsia ? Continue taking all other home medications as prescribed ? Stop taking librium and famotidine ? Follow-up with PCP within 1-2 weeks of discharge ? If you do not have a PCP, you can follow-up at the [facility] (you can call [phone] to make an appointment) ? Return to ED if symptoms worsen or recur The patient was seen and discussed with my attending physician Dr. Brown LAW and my senior resident Dr. Larry LAW PGY-2. Russ Hawk DO PGY-1 Time Spent with Patient Time attestation: Total time spent providing and/or coordinating discharge services: Greater than 50%. Time spent: Greater than 30 minutes Exam Vital Signs Temp Pulse Resp BP Pulse Ox O2 Del Method O2 Flow Rate 98 F 60 16 98/52 L 96 Room Air 2 11/06/24 12:00 11/06/24 12:00 11/06/24 12:00 11/06/24 12:11/06/24 12:11/06/24 12:11/05/24 04:00 Narrative Exam General: A&Ox3, hands stable when stretched outward bilaterally. In no acute distress. Conversational and non-toxic appearing. Neurologic: No gross neurological deficit, patient able to move all 4 extremities. HEENT: Normocephalic, atraumatic, mucous membranes moist. Pupils reactive to light. Heart: Regular rate and rhythm, normal S1 and S2, no murmurs. Lungs: Clear to auscultation bilaterally with no wheezing or crackles. Abdomen: Soft, nondistended, pain on palpation of the mid epigastric region, positive bowel sounds. No guarding or rebound tenderness. Extremities: No edema. 2+ radial and dorsalis pedis pulses bilaterally. Skin: Warm. Dry. No rash or ecchymoses. Discharge Plan Plan Patient Disposition: HOME (Self Care) Patient condition on transfer: Stable Care Plan Goals: ? Take pantoprazole, maalox, and sucralfate for abdominal pa in/indigestion/dyspepsia ? Continue taking all other home medications as prescribed ? Stop taking librium and famotidine ? Follow-up with PCP within 1-2 weeks of discharge ? If you do not have a PCP, you can follow-up at the [facility] (you can call [phone] to make an appointment) ? Return to ED if symptoms worsen or recur Prescriptions/Referrals Prescriptions/Med Rec: New alum-mag hydroxide-simeth 200-200-20 mg/5 mL suspension 10 ml PO QID PRN (Reason: dyspepsia) Qty: 3000 0RF Rx Instructions: administer between meals and at bedtime sucralfate 1 gram tablet 1 g PO BID 30 Days Qty: 60 0RF Changed pantoprazole [Protonix] 40 mg tablet,delayed release (DR/EC) 40 mg PO DAILY 30 Days Qty: 30 3RF Rx Instructions: Take one tablet by mouth twice a day Discontinued chlordiazepoxide HCl 25 mg capsule 25 mg PO Q6H MDD 4 PRN (Reason: alcohol withdrawal) Qty: 30 1RF famotidine [Pepcid] 20 mg tablet 20 mg PO BID MDD 2 Qty: 20 0RF Referrals: No Primary/Family,Physician [Primary Care Provider] Patient/Caregiver Discharge Instructions Education Materials: Alcoholism: Getting Help, Alcohol Addiction, Alcohol Withdrawal: What to Expect Print Language: Filipino Stand Alone Forms: Claire Award Info., Patient Portal Info Letter Discharge Order Discharge Orders: Discharge (Routine); Ordered 11/06/24 Ordered By: Dieudonne Juarez Quality Discharge Quality Measures none MD Attestestation MD Attestation I have examined the patient, reviewed labs and imaging findings, discussed the case with the resident(s), and reviewed entered orders. I agree with the plan of care as outlined in this note. Time Spent: [address] Brown MD
--- NOTE | 2024-11-06 22:53 | PD.IMPROG ---
Documentation for date of: 11/06/24 Subjective Subjective Interval history: Late entry for the note Hemoglobin hematocrit 11.7 and 36.1 Case discussed with internal medicine team Okay to discharge home to be followed by the PCP Advised the patient to be completely abstinent from alcohol Exam Vital Signs Temp Pulse Resp BP Pulse Ox O2 Del Method O2 Flow Rate 98 F 60 16 98/52 L 96 Room Air 2 11/06/24 12:00 11/06/24 12:00 11/06/24 12:00 11/06/24 12:00 11/06/24 12:00 11/06/24 12:00 11/05/24 04:00 Objective Labs 11/06/24 05:16 11/06/24 05:16 Labs: Laboratory Results - last 24 hr 11/06/24 05:16 WBC 3.4 L RBC 3.81 L Hgb 11.7 L Hct 36.1 L MCV 95 MCH 30.7 MCHC 32.4 RDW Std Deviation 56.8 H Plt Count 143 Neut % (Auto) 34 L Lymph % (Auto) 43 [place] % (Auto) 18 H Eos % (Auto) 4 Baso % (Auto) 1 Neut # (Auto) 1.2 L Lymph # (Auto) 1.5 [place] # (Auto) 0.6 Eos # (Auto) 0.1 Baso # (Auto) 0.0 Immature Gran # (Auto) 0.01 H Absolute Nucleated RBC 0.00 Immature Gran % 0 Nucleated RBC % 0 Sodium 141 Potassium 3.9 Chloride 103 Carbon Dioxide 29.6 Anion Gap 8 BUN 8 L Creatinine 1.0 Estim Creat Clear Calc 85.7 eGFR > 60 BUN/Creatinine Ratio 8 L Glucose 109 H Calculated Osmolality 280 Calcium 9.1 Corrected Calcium 9.1 Total Bilirubin 0.3 AST 53 H ALT 38 Alkaline Phosphatase 157 H Total Protein 6.6 Albumin 4.2 Globulin 2.4 Albumin/Globulin Ratio 1.8 Impressions Impression: 1+ esophageal varices Gastritis GE junction erosions Okay to discharge on PPI Assessment & Plan A&P Narrative # Pain abdomen with nausea vomiting in the setting of chronic liver disease secondary to alcohol with some drop in hemoglobin hematocrit # Acute alcohol withdrawal Plan N.p.o. midnight tonight Consent obtained for fiberoptic esophagogastroduodenoscopy with possible therapeutic intervention under intravenous moderate sedation scheduled for tomorrow IV Protonix Serial CBC Continue present treatment for alcohol withdrawal symptoms Will follow the patient Thank you very much for the opportunity to participate in the care of this patient Time Spent With Patient Time: Total time spent is greater than 50% in coordination of care (as documented) at patient's floor/unit and/or counseling patient:
== END 2024-11-06 13:32 | disposition home or self-care (01) | DRG 280 ==
LOC: SERX 03:00 → SERHOLD 04:26 → S2NX 06:32 → S3SX 11-02 20:33
PROVIDERS: Specialist; Student in an Organized Health Care Education/Training Program; Admitting Provider Student in an Organized Health Care Education/Training Program; Emergency Provider Emergency Medicine; Visit Provider Student in an Organized Health Care Education/Training Program
PROC: 0DJ08ZZ Inspection of Upper Intestinal Tract, Via Natural or Artificial Opening Endoscopic (ICD-10-PCS; CPT 43239; principal; 2024-11-02 17:00)
DX: K74.60 Unspecified cirrhosis of liver (principal); K70.10 Alcoholic hepatitis without ascites; F10.139 Alcohol abuse with withdrawal, unspecified; Y90.0 Blood alcohol level of less than 20 mg/100 ml; F17.200 Nicotine dependence, unspecified, uncomplicated; I85.11 Secondary esophageal varices with bleeding; F41.9 Anxiety disorder, unspecified; T51.0X1A Toxic effect of ethanol, accidental (unintentional), initial encounter; K29.71 Gastritis, unspecified, with bleeding
CPT/HCPCS: 36415; 71045; 76705; 80053; 80307; 80320; 83690; 83735; 84100; 85025; 86850; 86900; 86901; 93005; 93225; 96361; 96365; 96366; 96375; 96376; 99284; A4216; A4217; A4649; J0696; J1200; J2250; J2354; J2405; J2470; J2560; J2765; J3010; J3360; J3411; J3475; J3490; J7030; J7042; J7050; A9270; G0480

== ENCOUNTER 2024-11-16 16:28 | Inpatient (IN) | payer MEDICAID, SELFPAY ==
[2024-11-16 16:45] VITALS: BP 133/86; PULSE 95; RESP 16; TEMP 36.8; O2SAT 95; BMI 23.3
--- NOTE | 2024-11-16 16:45 | PC.NURSE ---
PT IN ROOM WITH RN DIGESTIVE DUE TO SUICIDAL IDEATION. PT SAYING HE JUMPED OFF BRIDGE. PER TRIAGE NURSE NOTE FROM OFFICER THAT BROUGHT PT IN, PT WAS FOUND ON BRIDGE WANTING TO JUMP BUT DID NOT JUMP OFF. PT WITH C/O PAIN EVERYWHERE. WHEN ATTEMPTING TO ASK PT QUESTIONS, PT KEEPS SAYING I DON'T WANT TO TALK ABOUT IT. 1:1 SITTER AT BEDSIDE
--- NOTE | 2024-11-16 17:03 | XR_ITS ---
Examination: CT cervical spine without contrast 2-D sagittal reconstructions 2-D coronal reconstructions 3-D reconstructions. Exam date and time: November 16, 2024, 1732 hours INDICATIONS: Onset neck pain today CTDI:vol (mGy) 14.9 DLP: (mGycm) 327 Technique: Multiple 2 mm axial sections of the cervical spine have been obtained. The coronal and sagittal reconstructions have been obtained. 3-D reconstructions have been obtained. Low dose protocols were performed. One or more of the following dose reduction techniques were used; automated exposure control, adjustment of the mA and/or KV according to patient size, use of iterative reconstruction technique. Findings: Axial sections demonstrate intact base of the skull. C1 exhibit satisfactory relationship to the odontoid. No acute cervical vertebral body fracture seen. Alignment posterior spinous processes satisfactory. Cervical levoscoliosis of 10 degrees C5-C6 mild to moderate left neural foraminal stenosis Impression: No acute cervical fracture. C5-C6 mild to moderate left neural foraminal stenosis As clinically warranted, MRI cervical spine without contrast follow-up would be preferable in assessing for acquired soft tissue spinal stenosis
--- NOTE | 2024-11-16 17:03 | XR_ITS ---
Examination: CT brain head without contrast. 2-D sagittal coronal reconstructions Date and time of exam: November 16, 2024, 1932 hours INDICATIONS: Injury to the head today, head pain CTDI: vol (mGy): 47.7 DLP: (mGycm): 987 Technique: Multiple CT axial sections of the brain have been obtained, 5 mm slice thickness. Contrast has not been administered. 2-D sagittal, coronal reconstructions have been obtained Low dose protocols were performed. One or more of the following dose reduction techniques were used; automated exposure control, adjustment of the mA and/or KV according to patient size, use of iterative reconstruction technique. Findings: No significant ventricular enlargement. Intra-axial or extra-axial hemorrhage density is not seen. No mass effect or midline shift Basal cisterns are not remarkable. Fourth ventricle is midline. Cranial vault intact. Impression: Negative for acute hemorrhage, mass effect or midline shift
--- NOTE | 2024-11-16 17:03 | PC.NURSE ---
WHEN UNDRESSING PT SMALL PAIR SCISSORS FELL OUT OF POCKET. PT WITH FEW OLD AND NEW CUT GOLDSTEIN TO BOTH ARMS
--- NOTE | 2024-11-16 17:05 | PD.EDSUICD ---
ED Psych RME/HPI General Chief Complaint: Suicidal Stated Complaint: MENTAL HEALTH EVAL; SI Time Seen by Provider: 11/16/24 16:42 Arrival date/time: 11/16/24 16:28 RME / HPI RME / HPI Narrative: 29-year-old male patient was brought in by EMS for evaluation regarding suicidal ideation. Patient was picked up in the bridge, wanting to jump off the bridge. Patient told me that he had a lot of family problem right now, today patient got the text from his that the is going to file for divorce and will be with somebody. He is currently staying with his family. Patient admits of drinking alcohol, today consumed 3 to 4 cans of beers several hours prior to ER visit. Patient complained of headache and neck pain, after patient decided not to jump off the bridge for the first time instead slid down on the side of the bridge. He denies any suicidal ideation. He is currently not taking any medication. Related Data Previous Rx's ?Medication ?Instructions ?Recorded aluminum-mag hydroxide-simethicone 10 ml PO QID PRN dyspepsia #3,000 11/06/24 200 mg-200 mg-20 mg/5 mL oral susp mL pantoprazole 40 mg tablet,delayed 40 mg PO DAILY 1 month #30 tabs 11/06/24 release (Protonix) sucralfate 1 gram tablet 1 g PO BID 30 days #60 tabs 11/06/24 Allergies Allergy/AdvReac Type Severity Reaction Status Date / Time No Known Allergies Allergy Verified 11/16/24 16:33 Review of Systems Review of Systems Narrative Review of Systems: Review of system reviewed and within normal limits except mentioned in HPI ED Exam Narrative Physical exam: VITAL SIGNS: Reviewed. GENERAL APPEARANCE: Alert and interactive, follows commands, no acute distress, HEAD AND FACE: Occipital scalp tenderness, no bruising ENT: PERRL, pink conjunctivitis, eyelid no trauma, Mucous membrane moist. NECK: Supple, posterior neck tenderness, no nuchal rigidity. CHEST: No tenderness, no crepitus, no paradoxical movement, no retractions. LUNGS: Clear, well ventilated, symmetric, no rales, no wheezing, no ronchi, no stridor, good breath sounds bilaterally. HEART: Regular rate, regular rhythm, no murmur, no gallops. ABDOMEN: Soft, positive bowel sounds, nondistended, no guarding, nontender, no rebound, no masses, RECTAL: Deferred. GENITAL: Deferred. NEUROLOGICAL: Gross motor function intact sensory function intact, Appropriate for age. MUSCULOSKELETAL: low back nontender, full range of motion. EXTREMITIES: Nontender, full range of motion. SKIN: Color pink, dry, no rash, no lacerations, + multiple superficial abrasions noted on the upper and lower extremities LYMPHATICS: Deferred. Course Quality Measures none Orders Category Date Time Status 1799 Psychiatric Hold NOW Care 11/16/24 17:15 Ordered One-to-one observation NOW Care 11/16/24 17:[address] cervical spine wo con Stat Exams 11/16/24 17:[address] head/brain wo con Stat Exams 11/16/24 17:03 Completed Acetaminophen Stat Lab 11/16/24 17:12 Completed Alcohol, Blood Medical Stat Lab 11/16/24 17:12 Completed CBC Stat Lab 11/16/24 17:12 Completed CMP [Comprehensive Metabolic Panel] Stat Lab 11/16/24 17:12 Completed Drug Screen,Urine Stat Lab 11/16/24 17:24 Completed Salicylate Stat Lab 11/16/24 17:12 Completed Urinalysis Stat Lab 11/16/24 17:24 Completed Ibuprofen Tab [Motrin Tab] Med 11/16/24 20:04 Discontinued 800 mg PO X1 ONE Vital Signs Vital signs: Vital Signs Temperature 98.3 F 11/16/24 16:45 Pulse Rate 95 11/16/24 16:45 Respiratory Rate 16 11/16/24 16:45 Blood Pressure 133/86 H 11/16/24 16:45 Pulse Oximetry (%) 95 11/16/24 16:45 Oxygen Delivery Method Room Air 11/16/24 16:45 Psych MDM Narrative MDM Narrative:: 29-year-old male patient was brought in by EMS for evaluation regarding suicidal ideation. Patient was picked up in the bridge, wanting to jump off the bridge. Patient told me that he had a lot of family problem right now, today patient got the text from his that the is going to file for divorce and will be with somebody. He is currently staying with his family. Patient admits of drinking alcohol, today consumed 3 to 4 cans of beers several hours prior to ER visit. Patient complained of headache and neck pain, after patient decided not to jump off the bridge for the first time instead slid down on the side of the bridge. He denies any suicidal ideation. He is currently not taking any medication. Patient's workup significant for atrial alcohol of 394. With slight elevated LFTs. CT scan of the head came back unremarkable CT scan of the neck came back unremarkable. Patient is medically cleared for crisis intervention Care transferred to Nia Jaime MD for final disposition Patient data External records reviewed:: None Clinical information provided by:: patient Social determinants that could affect healthcare access:: alcohol use Patient has the following chronic illnesses:: Depression How is presenting disease/condition affected by chronic disease/condition?: exacerbated by Evaluation data The following diagnostics were reviewed and interpreted by me:: lab results and radiology exam(s) Lab and/or radiology exams considered but not ordered:: None Interpretation Summary: See MDM Medications / Prescriptions Medications or Prescriptions considered but not ordered:: Plan Medication administrations:: Medication Administration History Discontinued Medications Ibuprofen (Ibuprofen Tab 400 Mg Tablet) 800 mg PO X1 ONE Stop: 11/16/24 20:05 Last Admin: 11/16/24 20:41 Dose: 800 mg Documented By: KAITLYNN Tong Consultations Consultation(s) initiated? (list below): No Diagnosis Psych Differential Diagnosis: acute psychosis, chronic schizophrenia and suicidal ideation Most likely diagnosis given after review of the tests above:: Chronic alcoholism, suicidal ideation Admission Indicated Admission indicated?: not indicated Admission Request Was there a request for admission?: No Disposition Plan Disposition Plan: other (specify) Discharge Plan Prescriptions/Referrals Prescriptions/Med Rec: No Action alum-mag hydroxide-simeth 200-200-20 mg/5 mL suspension 10 ml PO QID PRN (Reason: dyspepsia) Qty: 3000 0RF Rx Instructions: administer between meals and at bedtime sucralfate 1 gram tablet 1 g PO BID 30 Days Qty: 60 0RF pantoprazole [Protonix] 40 mg tablet,delayed release (DR/EC) 40 mg PO DAILY 30 Days Qty: 30 3RF Rx Instructions: Take one tablet by mouth twice a day Referrals: No Primary/Family,Physician [Primary Care Provider] - In 1 week Problem List Clinical Impression: Alcohol abuse, Suicidal ideation Patient/Caregiver Discharge Instructions Print Language: [place]
[2024-11-16 17:30] LABS: Basophils # (Auto) 0.1 Thou/mm3 (0.0-0.2); Basophils % (Auto) 1 % (0-2.5); Eosinophils # (Auto) 0.1 Thou/mm3 (0.0-0.5); Eosinophils % (Auto) 2 % (0-10); Hematocrit 32.0 % (41.0-53.0); Hemoglobin 10.7 g/dL (13.5-16.0); Immature Granulocytes Auto 0.02 Thou/mm3 (0.00-0.00); Lymphocytes # (Auto) 2.1 Thou/mm3 (1.0-4.8); Lymphocytes % (Auto) 33 % (10-50); Mean Corpuscular HGB Conc 33.4 g/dl (31.0-37.0); Mean Corpuscular Hemoglobin 30.2 pg (25.0-35.0); Mean Corpuscular Volume 90 fL (80-100); Monocytes # (Auto) 0.6 Thou/mm3 (0.0-0.8); Monocytes % (Auto) 10 % (0-12); Neutrophils # (Auto) 3.3 Thou/mm3 (1.8-7.7); Neutrophils % (Auto) 54 % (37-80); Nucleated Red Blood Cell # 0.00 Thou/mm3 (0.00-0.00); Nucleated Red Blood Cell % 0 /100 WBC (0); Platelet Count 322 Thou/mm3 (140-440); RDW Standard Deviation 58.9 fL (35.1-43.9); Red Blood Count 3.54 Miln/mm3 (4.50-5.90); White Blood Count 6.2 Thou/mm3 (3.8-10.6)
[2024-11-16 17:45] LABS: Collection Type, Urine Clean Catch; Squamous Epithelial Cell,Urine 0 /hpf (0-5)
[2024-11-16 17:51] LABS: Bilirubin,Urine Negative (Negative); Blood,Urine Negative (Negative); Clarity,Urine Clear (Clear/Hazy); Color,Urine Colorless (Lt Yel-Yel); Glucose, Urine Negative (Negative); Ketones,Urine Negative (Negative); Leukocyte Esterase,Urine Negative (Negative); Nitrite,Urine Negative (Negative); PH,Urine 6.5 (5.0-7.0); Protein,Urine Negative (Neg - Trace); RBC,Urine 3 /hpf (0-3); Specific Gravity,Urine 1.005 (1.001-1.035); Urobilinogen,Urine Negative mg/dL (0.0-1.0); WBC,Urine 1 /hpf (0-5)
[2024-11-16 17:52] VITALS: BP 123/77; PULSE 78; RESP 18; TEMP 36.6; O2SAT 95
[2024-11-16 17:58] LABS: Amphetamine/Methamp Scrn,U Negative (Negative); Barbiturate Screen,Urine Negative (Negative); Benzodiazepines Screen,Urine Negative (Negative); Benzoylecgonine Screen, Ur Negative (Negative); Fentanyl Screen,Urine Negative (Negative); Opiate Screen,Urine Negative (Negative); THC Screen,Urine Negative (Negative)
[2024-11-16 18:00] LABS: Acetaminophen < 2.0 mcg/mL (10.0-20.0); Alanine Aminotransferase 57 U/L (10-49); Albumin, Serum 4.8 gm/dL (3.5-5.0); Albumin/Globulin Ratio 1.8 (1.2-2.2); Alcohol, Blood Medical 394.4 mg/dL (0-10.0); Alkaline Phosphatase 196 U/L (46-116); Anion Gap 14 (7-16); Aspartate Amino Transferase 77 U/L (0-34); BUN/Creatinine Ratio 7 Ratio (12-20); Bilirubin,Total 0.3 mg/dL (0.3-1.2); Blood Urea Nitrogen 6 mg/dL (9-23); Calcium 9.1 mg/dL (8.3-10.6); Calcium (Corrected) 9.1 mg/dL (8.5-10.1); Carbon Dioxide 26.2 mMol/L (20.0-31.0); Chloride 106 mMol/L (98-107); Creatinine (Component) 0.9 mg/dL (0.6-1.3); Estimated Creatinine Clearance 107.2 mL/min (>60); Globulin 2.7 gm/dL (2.3-3.5); Glucose 117 mg/dL (74-106); Osmolality,Calculated 289 (275-295); Potassium 3.5 mMol/L (3.4-5.1); Salicylate < 3.0 mg/dL; Sodium 146 mMol/L (136-145); Total Protein 7.5 gm/dL (5.7-8.2); eGFR > 60 See Note
[2024-11-16] MEDS: IBUPROFEN TAB 400 MG TABLET 800 MG PO (20:41)
[2024-11-16 21:58] VITALS: BP 132/93; PULSE 95; RESP 17; O2SAT 95
[2024-11-16 23:45] VITALS: BP 128/84; PULSE 68; RESP 17; O2SAT 96
[2024-11-17] VITALS (20 sets, daily range): BP systolic 101–133; BP diastolic 61–79; PULSE 36–85; RESP 8–98; TEMP 36.2–37.8; O2SAT 95–99; BMI 24.3
--- NOTE | 2024-11-17 06:33 | EDNOTE_ITS ---
Emergency Room Addendum Addendum Narrative: 0600: Care assumed from Dr. Rodgers, the previous shift emergency physician. Past medical, surgical, social and family history reviewed. Vitals and home medications reviewed. I will assume the care of the patient at this time, pending psychiatric evaluation. 0744: Mental health cleared the patient to go home. Patient was already medically cleared, he is just having withdrawals symptoms. Will give Levaquin. Please refer to the emergency department record for history and examination from initial visit.? 29-year-old male presenting with ongoing alcohol withdrawal symptoms, including anxiety, and paresthesias. He reports attempting to quit drinking over the past two weeks but has been unable to do so successfully. At 0744 hours, the patient was cleared by mental [facility] after being medically cleared for psychiatric evaluation. At 1123 hours, he developed worsening anxiety and new-onset numbness involving the face and extremities. No abdominal tenderness or focal deficits noted on exam. Symptoms are consistent with worsening alcohol withdrawal rather than acute neurologic pathology. Levaquin initiated per prior orders, and plan is to admit the patient for observation and management of alcohol withdrawal with appropriate monitoring and supportive therapy. EKG at 1151 hours. Interpreted by me: sinus rhythm, rate 67, no axis deviation, no ischemia, normal intervals Differential diagnosis: Likely alcohol withdrawal, electrolyte imbalance, anxiety reaction, neuropathy secondary to chronic alcohol use. Most likely diagnosis given after review of the tests above: Alcohol withdrawals. Physical Exam General Limitations: no limitations General appearance: alert and in no apparent distress Head Head exam: atraumatic, normocephalic and normal inspection Eye Eye exam: Present normal appearance and EOMI ENT ENT exam: Present normal exam, normal oropharynx and mucous membranes moist Neck Neck exam: Present normal inspection, full ROM and trachea midline Chest Chest inspection: Present normal inspection and symmetric chest wall rise Respiratory Respiratory exam: Present normal lung sounds bilaterally Cardiovascular Cardiovascular exam: Present normal rhythm, tachycardia and normal heart sounds Abdominal Exam Abdominal exam: Present soft and normal bowel sounds; Absent tenderness Extremities Exam Extremities exam: Present normal inspection and full ROM Neurological Exam Neurological exam: Present alert, oriented X3 and other (mild tremulousness) Psychiatric Psychiatric exam: Present normal affect and normal mood Skin Skin exam: Present warm, dry, intact and normal color Results Objective Laboratory: Laboratory Last Values WBC 6.2 Thou/mm3 (3.8-10.6) 11/16/24 17:12 RBC 3.54 Miln/mm3 (4.50-5.90) L 11/16/24 17:12 Hgb 10.7 g/dL (13.5-16.0) L 11/16/24 17:12 Hct 32.0 % (41.0-53.0) L 11/16/24 17:12 MCV 90 fL (80-100) 11/16/24 17:12 MCH 30.2 pg (25.0-35.0) 11/16/24 17:12 MCHC 33.4 g/dl (31.0-37.0) 11/16/24 17:12 RDW Std Deviation 58.9 fL (35.1-43.9) H 11/16/24 17:12 Plt Count 322 Thou/mm3 (140-440) D 11/16/24 17:12 Neut % (Auto) 54 % (37-80) 11/16/24 17:12 Lymph % (Auto) 33 % (10-50) 11/16/24 17:12 [place] % (Auto) 10 % (0-12) 11/16/24 17:12 Eos % (Auto) 2 % (0-10) 11/16/24 17:12 Baso % (Auto) 1 % (0-2.5) 11/16/24 17:12 Neut # (Auto) 3.3 Thou/mm3 (1.8-7.7) 11/16/24 17:12 Lymph # (Auto) 2.1 Thou/mm3 (1.0-4.8) 11/16/24 17:12 [place] # (Auto) 0.6 Thou/mm3 (0.0-0.8) 11/16/24 17:12 Eos # (Auto) 0.1 Thou/mm3 (0.0-0.5) 11/16/24 17:12 Baso # (Auto) 0.1 Thou/mm3 (0.0-0.2) 11/16/24 17:12 Immature Gran # (Auto) 0.02 Thou/mm3 (0.00-0.00) H 11/16/24 17:12 Absolute Nucleated RBC 0.00 Thou/mm3 (0.00-0.00) 11/16/24 17:12 Immature Gran % 0 % (0-0) 11/16/24 17:12 Nucleated RBC % 0 /100 WBC (0) 11/16/24 17:12 Sodium 146 mMol/L (136-145) H 11/16/24 17:12 Potassium 3.5 mMol/L (3.4-5.1) 11/16/24 17:12 Chloride 106 mMol/L (98-107) 11/16/24 17:12 Carbon Dioxide 26.2 mMol/L (20.0-31.0) 11/16/24 17:12 Anion Gap 14 (7-16) 11/16/24 17:12 BUN 6 mg/dL (9-23) L 11/16/24 17:12 Creatinine 0.9 mg/dL (0.6-1.3) 11/16/24 17:12 Estim Creat Clear Calc 107.2 mL/min (>60) 11/16/24 17:12 eGFR > 60 See Note (60-) 11/16/24 17:12 BUN/Creatinine Ratio 7 Ratio (12-20) L 11/16/24 17:12 Glucose 117 mg/dL (74-106) H 11/16/24 17:12 Calculated Osmolality 289 (275-295) 11/16/24 17:12 Calcium 9.1 mg/dL (8.3-10.6) 11/16/24 17:12 Corrected Calcium 9.1 mg/dL (8.5-10.1) 11/16/24 17:12 Total Bilirubin 0.3 mg/dL (0.3-1.2) 11/16/24 17:12 AST 77 U/L (0-34) H 11/16/24 17:12 ALT 57 U/L (10-49) H 11/16/24 17:12 Alkaline Phosphatase 196 U/L (46-116) H 11/16/24 17:12 Total Protein 7.5 gm/dL (5.7-8.2) 11/16/24 17:12 Albumin 4.8 gm/dL (3.5-5.0) 11/16/24 17:12 Globulin 2.7 gm/dL (2.3-3.5) 11/16/24 17:12 Albumin/Globulin Ratio 1.8 (1.2-2.2) 11/16/24 17:12 Ur Collection Type Clean Catch 11/16/24 17:24 Urine Color Colorless (Lt Yel-Yel) A 11/16/24 17:24 Urine Clarity Clear (Clear/Hazy) 11/16/24 17:24 Urine pH 6.5 (5.0-7.0) 11/16/24 17:24 Ur Specific [place] 1.005 (1.001-1.035) 11/16/24 17:24 Urine Protein Negative (Neg - Trace) 11/16/24 17:24 Urine Glucose (UA) Negative (Negative) 11/16/24 17:24 Urine Ketones Negative (Negative) 11/16/24 17:24 Urine Blood Negative (Negative) 11/16/24 17:24 Urine Nitrite Negative (Negative) 11/16/24 17:24 Urine Bilirubin Negative (Negative) 11/16/24 17:24 Urine Urobilinogen (Auto) Negative mg/dL (0.0-1.0) 11/16/24 17:24 Ur Leukocyte Esterase Negative (Negative) 11/16/24 17:24 Urine RBC 3 /hpf (0-3) 11/16/24 17:24 Urine WBC 1 /hpf (0-5) 11/16/24 17:24 Ur Squamous Epith Cells 0 /hpf (0-5) 11/16/24 17:24 Urine Bacteria None (None) 11/16/24 17:24 Salicylates < 3.0 mg/dL 11/16/24 17:12 Urine Opiates Screen Negative (Negative) 11/16/24 17:24 Urine Fentanyl Screen Negative (Negative) 11/16/24 17:24 Acetaminophen < 2.0 mcg/mL (10.0-20.0) L 11/16/24 17:12 Ur Barbiturates Screen Negative (Negative) 11/16/24 17:24 U Amphetamin/Meth Scrn Negative (Negative) 11/16/24 17:24 U Benzodiazepines Scrn Negative (Negative) 11/16/24 17:24 U Cocaine Metab Screen Negative (Negative) 11/16/24 17:24 U Marijuana (THC) Screen Negative (Negative) 11/16/24 17:24 Ethyl Alcohol 394.4 mg/dL (0-10.0) H 11/16/24 17:12 Imaging: Procedure(s): CT head/brain wo con Accession Number(s): [id number] cc: Rafal Escobar; Saúl Barrett MD; NO PRIMARY/FAMILY,PHYSICIAN~ Examination: CT brain head without contrast. 2-D sagittal coronal reconstructions Date and time of exam: November 16, 2024, 1932 hours INDICATIONS: Injury to the head today, head pain CTDI: vol (mGy): 47.7 DLP: (mGycm): 987 Technique: Multiple CT axial sections of the brain have been obtained, 5 mm slice thickness. Contrast has not been administered. 2-D sagittal, coronal reconstructions have been obtained Low dose protocols were performed. One or more of the following dose reduction techniques were used; automated exposure control, adjustment of the mA and/or KV according to patient size, use of iterative reconstruction technique. Findings: No significant ventricular enlargement. Intra-axial or extra-axial hemorrhage density is not seen. No mass effect or midline shift Basal cisterns are not remarkable. Fourth ventricle is midline. Cranial vault intact. Impression: Negative for acute hemorrhage, mass effect or midline shift Dictated By: Saúl Barrett MD Procedure(s): CT cervical spine wo con Accession Number(s): [id number] cc: Rafal Escobar; Saúl Barrett MD; NO PRIMARY/FAMILY,PHYSICIAN~ Examination: CT cervical spine without contrast 2-D sagittal reconstructions 2-D coronal reconstructions 3-D reconstructions. Exam date and time: November 16, 2024, 1732 hours INDICATIONS: Onset neck pain today CTDI:vol (mGy) 14.9 DLP: (mGycm) 327 Technique: Multiple 2 mm axial sections of the cervical spine have been obtained. The coronal and sagittal reconstructions have been obtained. 3-D reconstructions have been obtained. Low dose protocols were performed. One or more of the following dose reduction techniques were used; automated exposure control, adjustment of the mA and/or KV according to patient size, use of iterative reconstruction technique. Findings: Axial sections demonstrate intact base of the skull. C1 exhibit satisfactory relationship to the odontoid. No acute cervical vertebral body fracture seen. Alignment posterior spinous processes satisfactory. Cervical levoscoliosis of 10 degrees C5-C6 mild to moderate left neural foraminal stenosis Impression: No acute cervical fracture. C5-C6 mild to moderate left neural foraminal stenosis As clinically warranted, MRI cervical spine without contrast follow-up would be preferable in assessing for acquired soft tissue spinal stenosis Dictated By: Saúl Barrett MD
--- NOTE | 2024-11-17 07:28 | PC.NURSE ---
[place] social services aide at bedside speaking with patient.
--- NOTE | 2024-11-17 08:05 | PC.NURSE ---
Patient laying in gurney, denies SI/HI c/o chest pain with anxiety and wretching to vomit. Patient stating does not feel good, per patient pain all over body 5/10.
--- NOTE | 2024-11-17 08:19 | PC.CC ---
Patient is a 29 year-old year old male who presents to the hospital for alcohol intoxication and suicidal ideation - come in voluntary via EMS. Closer On made [id number] contact with patient to complete assessment. Closer On introduced self, role, and reason for assessment. Closer On disclosed limits of confidentiality as well. Patient appeared alert and oriented to self, place, and situation but reports is withdrawing and in a lot of pain. Patient made appropriate eye contact with this account underwriter and remained euthymic throughout assessment. Patient?s attitude appeared to be in pain but cooperative. No signs of delusions, paranoia or hallucinations. Patient confirmed information on demographics and reports to living with father. Patient reports that yesterday he had began drinking and was in pain and decided to walk to [facility] on [address] when he slipped and went down the side embankment. Pt disclosed having an alcohol abuse and is attempted to get clean on his own due to local restorationism not supporting client due to client having use restorationism support multiple times. Pt denies current thoughts of SI/HI and self-harming. Pt reports he has never attempted to end life and does not have thoughts of SI. Patient scored High-Risk on the [place] Screening. Closer On discussed high risk score and Pt continue to denied suicidal and homicidal ideation; visual and auditory hallucinations. Patient reports feeling safe being discharged and will like to return to [facility]. Closer On explored with patient what he has to look forward to he stated?being able to be sober. Patient reports he has supports at home and has a positive relationship with Father. Patient made contact with Pt Father. Pt father reports client has an alcohol abuse problem. Father reports he is wanting client to return home but needs to be able to find support with Alcohol Abuse. Per fatherr, there are no firearms in the home. Father reports that he will keep all sharps and medications in a secure location. Patient will not be left alone at home and extra supervision will be provided for the next 72 hours. Father will ensure patient attends his follow-up appointment with [facility] to get support with mental health. Upon clinical consultation with Lisa FINE patient does not meet criteria for 5150-hold and safety plan will be established with patient and father. Closer On provided update of safety plan to medical team and discharge plan with Father. .
[2024-11-17] MEDS: DIAZEPAM 5 MG TABLET 10 MG PO (09:31)
--- NOTE | 2024-11-17 11:26 | XR_ITS ---
EXAMINATION: AP chest single view TECHNIQUE: AP portable semiupright chest single view Date and time: November 17, 2024, 12 0 3:00 p.m., comparison 11/01/2024 INDICATIONS: Chest pain shortness of breath altered mental status today. FINDINGS: Normal heart size. No aspiration pneumonia. The osseous structures are intact. IMPRESSION: Negative for aspiration pneumonia
--- NOTE | 2024-11-17 11:27 | XR_ITS ---
Examination: CT abdomen with intravenous contrast CT pelvis with intravenous contrast 2-D coronal reconstructions 2-D sagittal reconstructions Date and time of exam: November 17, 2024, 1300 hours INDICATIONS: Epigastric pain beginning 2 weeks ago. CTDI: vol (mGy) 5.43 DLP: (mGycm) 276 Technique: Multiple axial sections of the abdomen and pelvis have been obtained. 64 slice high-resolution scanner used. 3 mm axial sections have been obtained, post intravenous injection 60 cc Isovue-370. 2-D sagittal, coronal reconstructions obtained. Low dose protocols were performed. One or more of the following dose reduction techniques were used; automated exposure control, adjustment of the mA and/or KV according to patient size, use of iterative reconstruction technique. Findings: Liver is irregular in contour Thickening of the gastric mucosa. Cholelithiasis, no gallbladder wall thickening. Negative for pancreatitis. No renal or ureteral calculi, no hydronephrosis No bowel obstruction or diverticulitis Normal appendix Bladder intact Osseous structures intact. IMPRESSION: Gastritis pattern. Cholelithiasis, negative for cholecystitis.
--- NOTE | 2024-11-17 11:36 | EKG_ITS ---
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
[2024-11-17 11:45] LABS: Lactate (Lactic Acid) 1.2 mMol/L (0.4-2.0)
[2024-11-17 12:31] LABS: Creatine Kinase 289 U/L (34-171); Procalcitonin 0.05 ng/ml (0.0-0.49); Troponin I < 0.020 ng/mL (0.0-0.045)
[2024-11-17 13:20] LABS: Lipase 44 U/L (12-53)
[2024-11-17] MEDS: RINGERS LACTATED 500 ML 500 ML 125 ML IV (13:38)
[2024-11-17] MEDS: ONDANSETRON INJ 2 MG/ML INJ 2 ML 4 MG IVP (13:52)
[2024-11-17] MEDS: DIAZEPAM INJ 5 MG/ML VIAL 2 ML 10 MG IVP (13:53)
--- NOTE | 2024-11-17 14:03 | ESHP_ITS ---
<Statement entered by Lalo Phipps MD - 11/18/24 12:43> I have discussed and was present for the essential components of the history, physical examination, diagnosis, and treatment plan with the resident. I agree with the patient's care as documented by the resident and amended herein by me. Lalo Phipps MD FACP. Documentation for date of: 11/17/24 HPI History of Present Illness History of present illness: 29-year-old male history of alcohol use and withdrawal, cirrhosis, and esophageal varices who was brought to the Emergency Room via EMS 11/16 for evaluation of suicidal ideation after being located near a bridge. The patient states he was distraught after receiving a text from his informing him she intends to file for divorce. Patient is saying people misinterpreted that he desired to jump off the bridge. He reports that he was walking uphill after work, tripped, and fell, resulting in injuries to his head, neck, and back. He denies any current suicidal ideation or intent and states he is currently staying with family. The patient admits to heavy alcohol consumption for the past week, stating that he drank two to three 40-ounce beers in the past week with his last drink at approximately 3:00 PM on 11/16/24. He complains of headache and neck pain related to the fall. ED course: Initial vitals include temperature 98.3, blood pressure 133/86, pulse 95, respirations 16, 95% on room air. Cervical spine showed no acute fracture, C5- C6 mild to moderate left neural foraminal stenosis. Head CT was negative. Chest x-ray was negative for aspiration pneumonia. CT abdomen showed gastritis pattern, cholelithiasis, negative for cholecystitis. Notable labs include hemoglobin 11.4, creatinine 0.9, magnesium 1.8, AST 57, ALT 49, alkaline phosphatase 168, total creatinine kinase 289, Pro-Thai 0.05, lipase 44. UA negative. Urine toxicology negative for drugs, positive for alcohol 394.4. Patient received diazepam 10 mg x 1, ibuprofen 800 mg x 1. Past medical history: As stated above. Allergies: NKDA Family history: Noncontributory. Social history: heavy alcohol use, no smoking, no illicit drug use according to patient. Patient admitted for EtOH withdrawal. Patient has been upgraded to ICU for CIWA of 26 for close monitoring. Review of Systems Review of Systems Narrative Review of Systems: All systems reviewed negative unless stated otherwise above. Exam Vital Signs Temp Pulse Resp BP Pulse Ox O2 Del Method 98.6 F 60 16 106/62 98 Room Air 11/17/24 14:00 11/17/24 14:00 11/17/24 14:00 11/17/24 14:00 11/17/24 14:00 11/17/24 14:00 Narrative Exam General Appearance: A&O?3, in acute distress and has mild symmetrical, fine tremulousness. No hallucinations. Head: Normocephalic, atraumatic (no visible contusions or lacerations). Eyes: PERRL, EOMI. ENT: Oropharynx clear, mucous membranes moist. Tympanic membranes clear bilaterally. Neck: Supple, non-tender to palpation of the spinous processes. Trachea midline. Full Range of Motion without guarded movement. CVS: Regular rate and rhythm. S1 and S2 present, no murmurs, rubs, or gallops. Capillary refill brisk. RESP: Symmetrical chest wall rise. Lungs clear to auscultation bilaterally without adventitious sounds. ABDO: Soft, non-distended, tenderness to palpation all over with voluntary guarding. Normal active bowel sounds. Extremities: 5/5 motor strength to all four extremities. Warm and dry with no edema. Neurological: Alert and oriented x 3. Sensation intact to light touch. Mild symmetrical, fine tremulousness noted. Reflexes are normal Skin: Warm, dry, and intact. Good turgor. Psychiatric: Mood anxious; Affect appropriate (tearful when discussing family issues). Speech clear and goal-directed. Patient firmly denies current suicidal or homicidal ideation or intent. Results: Labs 11/17/24 11:39 11/17/24 11:39 Labs: Short CBC 11/16/24 Range/Units 17:12 WBC 6.2 (3.8-10.6) Thou/mm3 Hgb 10.7 L (13.5-16.0) g/dL Hct 32.0 L (41.0-53.0) % Plt Count 322 D (140-440) Thou/mm3 BMP 11/16/24 17:12 Sodium 146 H Potassium 3.5 Chloride 106 Carbon Dioxide 26.2 BUN 6 L Creatinine 0.9 Glucose 117 H Calcium 9.1 Cardiac Enzymes 11/17/24 Range/Units 11:39 Total Creatine Kinase 289 H D (34-171) U/L Troponin I < 0.020 (0.0-0.045) ng/mL Liver Function 11/16/24 Range/Units 17:12 Total Bilirubin 0.3 (0.3-1.2) mg/dL AST 77 H (0-34) U/L ALT 57 H (10-49) U/L Alkaline Phosphatase 196 H (46-116) U/L Albumin 4.8 (3.5-5.0) gm/dL Urine 11/16/24 Range/Units 17:24 Urine Color Colorless A (Lt Yel-Yel) Urine Clarity Clear (Clear/Hazy) Urine pH 6.5 (5.0-7.0) Ur Specific [place] 1.005 (1.001-1.035) Urine Protein Negative (Neg - Trace) Urine Glucose (UA) Negative (Negative) Quality Measures Quality Measures none Medications Home Medications and Allergies Allergies Allergy/AdvReac Type Severity Reaction Status Date / Time No Known Allergies Allergy Verified 11/16/24 16:33 Visit Medications Acetaminophen (Acetaminophen 325 Mg Tablet) 650 mg PO Q6H PRN; Protocol PRN Reason: PAIN OR FEVER > 101 Stop: 12/17/24 13:42 Bisacodyl (Bisacodyl 5 Mg Tabec) 10 mg PO QDAY PRN; Protocol PRN Reason: CONSTIPATION Stop: 12/17/24 13:36 Diazepam (Diazepam Inj 5 Mg/Ml Vial 2 Ml) 2.5 mg IVP Q2HR PRN PRN Reason: CIWA SCORE 8-13 Stop: 11/22/24 13:36 Diazepam (Diazepam Inj 5 Mg/Ml Vial 2 Ml) 5 mg IVP Q2HR PRN PRN Reason: CIWA SCORE 14-19 Stop: 11/22/24 13:36 Diazepam (Diazepam Inj 5 Mg/Ml Vial 2 Ml) 10 mg IVP Q2HR PRN PRN Reason: CIWA SCORE 20-25 Stop: 11/22/24 13:36 Last Admin: 11/17/24 13:53 Dose: 10 mg Enoxaparin Sodium (Enoxaparin Sod Inj 40 Mg/0.4 Ml Syringe) 40 mg SC QDAY APOORVA Stop: 12/02/24 08:59 Lactated Ringer's (Lactated Ringers) 500 mls @ 125 mls/hr IV .Q4H ONE Stop: 11/17/24 15:38 Last Admin: 11/17/24 13:38 Dose: 125 mls/hr Morphine Sulfate (Morphine Sulf Inj 4 Mg/Ml Vial) 2 mg IVP Q2H PRN PRN Reason: PAIN SCALE 7-10 (Severe Stop: 11/22/24 13:42 Ondansetron HCl (Ondansetron Inj 2 Mg/Ml Inj 2 Ml) 4 mg IVP Q6H PRN; Protocol PRN Reason: NAUSEA OR VOMITING Stop: 12/17/24 13:36 Last Admin: 11/17/24 13:52 Dose: 4 mg Sennosides (Senna Tablet) 1 tab PO QDAY APOORVA; Protocol Stop: 12/18/24 08:59 Tramadol HCl (Tramadol Hcl 50 Mg Tablet) 50 mg PO Q6HR PRN PRN Reason: PAIN SCALE 4-6 (Moderate Stop: 11/22/24 13:42 Discontinued Medications Diazepam (Diazepam 5 Mg Tablet) 5 mg PO X1 ONE Stop: 11/17/24 09:05 Last Admin: 11/17/24 09:34 Dose: Not Given Diazepam (Diazepam 5 Mg Tablet) 10 mg PO X1 ONE Stop: 11/17/24 09:05 Last Admin: 11/17/24 09:31 Dose: 10 mg Ibuprofen (Ibuprofen Tab 400 Mg Tablet) 800 mg PO X1 ONE Stop: 11/16/24 20:05 Last Admin: 11/16/24 20:41 Dose: 800 mg Pantoprazole Sodium (Pantoprazole Inj 40 Mg Vial) 40 mg IVP X1 ONE Stop: 11/17/24 11:34 Last Admin: 11/17/24 12:02 Dose: 40 mg Assessment & Plan Plan 29-year-old male history of alcohol use and withdrawal, cirrhosis, and esophageal varices. Patient admitted for alcohol withdrawal. Patient has been transferred to ICU due to high CIWA score of 26. #EtOH withdrawal Last drink 11/16 EtOH level 394 Patient has have a bilateral tremors of hands, nauseous, headaches, normal reflexes, heart rate normal, blood pressure normal CIWA 26 (after diaxepam 10mg x1) --> CIWA 22 (after getting Phenobarb 130mg push x1). Monitor for hallucinations, seizures, delirium tremens Plan: ? Patient transferred to ICU for close monitoring given very high CIWA scores, unsafe for admission to medical floors ? CIWA protocol in place ? Thiamine 100 mg qday ? Folate 1 mg daily #History of cirrhosis #History of esophageal varices grade I Plan: ?No inpatient intervention needed at this time ?Follow-up outpatient Health Maintence: Disposition: Upgraded to ICU for management of alcohol withdrawal. Lines: peripheral IV DVT prophylaxis: SCDs GI prophylaxis: pantoprazole BID CODE STATUS: Full code Case discussed with my attending Dr. Phipps, and senior resident, Dr. Tanya Purdy MD PGY-1
[2024-11-17 14:07] LABS: Basophils # (Auto) 0.1 Thou/mm3 (0.0-0.2); Basophils % (Auto) 1 % (0-2.5); Eosinophils # (Auto) 0.1 Thou/mm3 (0.0-0.5); Eosinophils % (Auto) 1 % (0-10); Hematocrit 34.2 % (41.0-53.0); Hemoglobin 11.4 g/dL (13.5-16.0); Immature Granulocytes Auto 0.01 Thou/mm3 (0.00-0.00); Lymphocytes # (Auto) 1.7 Thou/mm3 (1.0-4.8); Lymphocytes % (Auto) 26 % (10-50); Mean Corpuscular HGB Conc 33.3 g/dl (31.0-37.0); Mean Corpuscular Hemoglobin 30.3 pg (25.0-35.0); Mean Corpuscular Volume 91 fL (80-100); Monocytes # (Auto) 0.7 Thou/mm3 (0.0-0.8); Monocytes % (Auto) 11 % (0-12); Neutrophils # (Auto) 3.8 Thou/mm3 (1.8-7.7); Neutrophils % (Auto) 61 % (37-80); Nucleated Red Blood Cell # 0.00 Thou/mm3 (0.00-0.00); Nucleated Red Blood Cell % 0 /100 WBC (0); Platelet Count 352 Thou/mm3 (140-440); RDW Standard Deviation 60.2 fL (35.1-43.9); Red Blood Count 3.76 Miln/mm3 (4.50-5.90); White Blood Count 6.3 Thou/mm3 (3.8-10.6)
[2024-11-17] MEDS: PHENobarbital Inj 130 MG, SODIUM CHLORIDE 0.9% FLUSH 12 ML IVP (14:34)
[2024-11-17 14:36] LABS: Alanine Aminotransferase 49 U/L (10-49); Albumin, Serum 4.7 gm/dL (3.5-5.0); Albumin/Globulin Ratio 1.8 (1.2-2.2); Alkaline Phosphatase 168 U/L (46-116); Anion Gap 12 (7-16); Aspartate Amino Transferase 57 U/L (0-34); BUN/Creatinine Ratio 12 Ratio (12-20); Bilirubin,Total 0.4 mg/dL (0.3-1.2); Blood Urea Nitrogen 11 mg/dL (9-23); Calcium 8.9 mg/dL (8.3-10.6); Calcium (Corrected) 8.9 mg/dL (8.5-10.1); Carbon Dioxide 26.8 mMol/L (20.0-31.0); Chloride 104 mMol/L (98-107); Creatinine (Component) 0.9 mg/dL (0.6-1.3); Estimated Creatinine Clearance 107.2 mL/min (>60); Globulin 2.6 gm/dL (2.3-3.5); Glucose 79 mg/dL (74-106); Magnesium 1.8 mg/dL (1.6-2.6); Osmolality,Calculated 283 (275-295); Phosphorous 4.2 mg/dL (2.4-5.1); Potassium 4.2 mMol/L (3.4-5.1); Sodium 143 mMol/L (136-145); Total Protein 7.3 gm/dL (5.7-8.2); eGFR > 60 See Note
--- NOTE | 2024-11-17 15:10 | PC.CC ---
Garcia Ybarra is a 29-year-old male admitted for Alcohol Abuse and Suicidal Ideation. Mattress Inspector made contact with Pt at bedside to complete initial and discuss discharge disposition. Role and reason for the contact was explained to Pt. Demographic information was verified. Pt identified his Father Abad Aden [phone] as his surrogate decision maker. Pt is independent with all ADLs. Pt utilizes no DME. Pt?[place] of pharmacy [place] [facility] [address] [place] [id number] . PCP is MARCUS. At time of discharge patient will return home, family will provide transportation. Psych eval was provided and Pt was cleared with safety plan with father and resources were given and explained to Pt. Discharge Plan: Home Next of Kin: Father Abad Aden [phone] PCP: MARCUS
[2024-11-17] MEDS: RINGERS LACTATED 1000 ML 1,000 ML 100 ML IV (17:01)
[2024-11-17] MEDS: Magnesium Sulfate 2 GM Ivpb 2 GM/50 ML BAG IV (17:03)
[2024-11-17] MEDS: THIAMINE INJ 100 MG/ML VIAL 2 ML IVP (17:03)
[2024-11-17] MEDS: FOLIC ACID INJ 1 MG/0.2 ML IVP (17:03)
--- NOTE | 2024-11-17 17:49 | ESPR_ITS ---
<Statement entered by Terrence Wade MD - 11/19/24 07:53> Patient seen and examined at bedside. I discussed and supervised with the financial internship physician who took care of this patient. I personally saw and examined the patient. I agree with most of the assessment and plan. Plan of care discussed with attending Dr. Sebastian. Terrence Wade MD PGY-2 <Statement entered by Seng Sebastian MD - 11/18/24 10:18> TOTAL CC TIME: 45 MIN I discussed the case with the resident, I reviewed the resident?s note and agree with findings and plan as documented in the resident?s note. Upon my evaluation, this patient had a high probability of imminent or life- threatening deterioration due to alcohol withdrawal requiring repetitive doses of benzodiazepines in the setting of history of liver disease and possible acute upper GI bleed which required my direct attention, intervention, and personal management. This time is exclusive of time spent on procedures, which are documented separately if performed. Monitor H&H if further bleeding, start Protonix, thiamine folic acid multivitamin, CIWA protocol. Monitor heart rate, respiratory rate and blood pressure while on benzodiazepines Precedex and possibly additional doses of phenobarbital. Documentation for date of: 11/17/24 Subjective Subjective Interval history: Clinical Course Prior to ICU Admission: After the patient was medically cleared from psychiatric evaluation and deemed ready for discharge from the ED, he began having symptoms consistent with alcohol withdrawal. Patient was admitted for observation and management of alcohol withdrawal. Patient received diazepam 10mg x1 in the ED prior to admission. The primary team continued treatment with diazepam 5 mg, followed by diazepam 10 mg, phenobarbital 130 mg, and chlordiazepoxide 50mg. However, the patient?s condition did not improve, prompting a consult to the ICU team. History Obtained by ICU team from patient before upgrade: 29-year-old male with a past medical history of alcohol use disorder, multiple prior hospitalizations for alcohol withdrawal, cirrhosis, and esophageal varices, presented to the ED on 11/16 for evaluation of suicidal ideation after being picked up by police and EMS. He reported that his last alcoholic drink was a 40-ounce beer around noon on 11/16. He stated that two days prior, he had been consuming approximately three 40-ounce beers daily. He endorsed generalized abdominal pain, back pain, and neck pain. He initially denied hematemesis. History Obtained by ICU team from patient after upgrade to ICU: Upon further questioning, the patient explained that he had been experiencing generalized body aches and alcohol withdrawal symptoms, and was on his way to the clinic/ED when he tripped over a ledge and rolled down a hill. He denied loss of consciousness or head trauma from the fall. After the fall, he was found by police near a bridge, and EMS was called when it was mistakenly assumed he was attempting to jump off the bridge. Patient also reported the onset of a pruritic rash approximately six days ago, which began on the left side of his neck and spread to both upper extremities. He denied any known allergies, new personal care products, recent travel, or similar symptoms in household contacts. 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 Although the patient initially denied hematemesis, he later recalled a single episode of bloody vomitus a few days prior. He reported his last meal and bowel movement occurred yesterday, with the stool described as normal, without diarrhea or visible blood. Due to persistent withdrawal symptoms and a CIWA score of 21, the patient was upgraded to the ICU for closer monitoring and management. Exam Vital Signs Temp Pulse Resp BP Pulse Ox O2 Del Method 98.7 F 46 L 16 101/61 97 Room Air 11/17/24 16:28 11/17/24 16:28 11/17/24 16:28 11/17/24 16:28 11/17/24 16:28 11/17/24 16:28 Narrative Exam Physical Exam General: A&O x3, Anxious. Not in acute distress. Head: Normocephalic, atraumatic. Eyes: Pupils equally round and reactive to light. Anicteric. Neck: Patch of small, erythematous maculopapular lesions on the left lateral neck. Mouth/Throat: Oropharynx clear, mucous membranes moist. Heart: Regular rate and rhythm, no murmurs. No JVD. Lungs: Clear to auscultation with no wheezing or crackles. Non-labored respirations, symmetric chest rise, no use of accessory muscles. Abdomen: Soft, generalized tenderness to soft palpation with guarding. No rebound tenderness. No spider angiomas, no caput medusae, no fluid shift. Extremities: No edema. Posterior tibial pulses are 2+ bilaterally. 2+ radial pulse bilaterally. No clubbing or cyanosis. No mottling. Arms extended and fingers spread apart with moderate tremors. Skin: Scattered erythematous maculopapular lesions along both forearms. With overlying excoriations on left forearm. Objective Labs 11/18/24 05:13 11/18/24 05:13 Labs: Laboratory Results - last 24 hr 11/16/24 11/16/24 11/17/24 17:12 17:24 11:39 WBC 6.3 RBC 3.76 L Hgb 11.4 L Hct 34.2 L MCV 91 MCH 30.3 MCHC 33.3 RDW Std Deviation 60.2 H Plt Count 352 D Neut % (Auto) 61 Lymph % (Auto) 26 [place] % (Auto) 11 Eos % (Auto) 1 Baso % (Auto) 1 Neut # (Auto) 3.8 Lymph # (Auto) 1.7 [place]oup # (Auto) 0.7 Eos # (Auto) 0.1 Baso # (Auto) 0.1 Immature Gran # (Auto) 0.01 H Absolute Nucleated RBC 0.00 Immature Gran % 0 Nucleated RBC % 0 Sodium 146 H 143 Potassium 3.5 4.2 D Chloride 106 104 Carbon Dioxide 26.2 26.8 Anion Gap 14 12 BUN 6 L 11 Creatinine 0.9 0.9 Estim Creat Clear Calc 107.2 107.2 eGFR > 60 > 60 BUN/Creatinine Ratio 7 L 12 Glucose 117 H 79 Calculated Osmolality 289 283 Lactic Acid 1.2 Calcium 9.1 8.9 Corrected Calcium 9.1 8.9 Phosphorus 4.2 Magnesium 1.8 Total Bilirubin 0.3 0.4 AST 77 H 57 H ALT 57 H 49 Alkaline Phosphatase 196 H 168 H D Total Creatine Kinase 289 H D Troponin I < 0.020 Total Protein 7.5 7.3 Albumin 4.8 4.7 Globulin 2.7 2.6 Albumin/Globulin Ratio 1.8 1.8 Lipase Cancelled 44 Procalcitonin 0.05 Ur Collection Type Clean Catch Urine Color Colorless A Urine Clarity Clear Urine pH 6.5 Ur Specific [place] 1.005 Urine Protein Negative Urine Glucose (UA) Negative Urine Ketones Negative Urine Blood Negative Urine Nitrite Negative Urine Bilirubin Negative Urine Urobilinogen (Auto) Negative Ur Leukocyte Esterase Negative Urine RBC 3 Urine WBC 1 Ur Squamous Epith Cells 0 Urine Bacteria None Salicylates < 3.0 Urine Opiates Screen Negative Urine Fentanyl Screen Negative Acetaminophen < 2.0 L Ur Barbiturates Screen Negative U Amphetamin/Meth Scrn Negative U Benzodiazepines Scrn Negative U Cocaine Metab Screen Negative U Marijuana (THC) Screen Negative Ethyl Alcohol 394.4 H Quality Measures Quality Measures none Assessment & Plan Assessment Current Active Medications: Generic Name Dose Route Start Last Admin Trade Name Freq PRN Reason Stop Dose Admin Acetaminophen 650 mg 11/17/24 13:43 Acetaminophen 325 Mg Tablet PO 12/17/24 13:42 Q6H PRN PAIN OR FEVER > 101 Protocol Bisacodyl 10 mg 11/17/24 13:37 Bisacodyl 5 Mg Tabec PO 12/17/24 13:36 QDAY PRN CONSTIPATION Protocol Chlordiazepoxide HCl 50 mg 11/17/24 14:30 11/17/24 14:34 Chlordiazepoxide Hcl 25 Mg Capsule PO 11/22/24 14:29 50 mg Q6HR APOORVA Administration Dextrose 25 ml 11/17/24 16:01 Dextrose 50%-Water Inj 50 Ml Syringe IV 12/17/24 16:00 Q15MIN PRN BG 50-70 responsive npo pt Dextrose 50 ml 11/17/24 16:01 Dextrose 50%-Water Inj 50 Ml Syringe IV 12/17/24 16:00 Q15MIN PRN BG <50 OR BG <70 & pt unresponsive Diazepam 10 mg 11/17/24 16:13 Diazepam Inj 5 Mg/Ml Vial 2 Ml IVP 11/22/24 13:36 Q2HR PRN CIWA SCORE 20-25 Diazepam 2.5 mg 11/17/24 16:13 Diazepam Inj 5 Mg/Ml Vial 2 Ml IVP 11/22/24 13:36 Q2HR PRN CIWA SCORE 8-13 Diazepam 5 mg 11/17/24 16:13 Diazepam Inj 5 Mg/Ml Vial 2 Ml IVP 11/22/24 13:36 Q2HR PRN CIWA SCORE 14-19 Enoxaparin Sodium 40 mg 11/18/24 09:00 Enoxaparin Sod Inj 40 Mg/0.4 Ml Syringe SC 12/02/24 08:59 QDAY APOORVA Folic Acid 1 mg 11/20/24 09:00 Folic Acid 1 Mg Tablet PO 12/20/24 08:59 QDAY APOORVA Folic Acid 1 mg 11/17/24 16:45 11/17/24 17:03 Folic Acid Inj 1 Mg/0.2 Ml IVP 11/20/24 16:44 1 mg QDAY APOORVA Administration Glucagon 1 mg 11/17/24 16:01 Glucagon Inj 1 Mg Vial IM Q15MIN PRN BG <70, and no IV access Lactated Ringer's 1,000 mls @ 100 mls/hr 11/17/24 15:09 11/17/24 17:01 Lactated Ringers IV 11/18/24 11:08 100 mls/hr .Q10H APOORVA Administration Dexmedetomidine/Sodium Chloride 400 mcg in 100 mls @ 3.175 mls/hr 11/17/24 16:07 Precedex Ivpb IV 12/17/24 16:06 .Q24H PRN Per PROTOCOL Protocol 0.2 MCG/KG/HR Magnesium Sulfate 2 gm in 50 mls @ 25 mls/hr 11/17/24 16:34 11/17/24 17:03 Magnesium Sulfate Ivpb IV 11/17/24 18:33 25 mls/hr X1 ONE Administration Lorazepam 1 mg 11/17/24 14:19 Lorazepam 0.5 Mg Tablet PO 11/22/24 14:18 Q8HR PRN ALCOHOL WITHDRAWAL Morphine Sulfate 0.5 mg 11/17/24 14:04 Morphine Sulf Inj 4 Mg/Ml Vial IVP 11/22/24 13:42 Q6H PRN PAIN SCALE 7-10 (Severe Ondansetron HCl 4 mg 11/17/24 13:37 11/17/24 13:52 Ondansetron Inj 2 Mg/Ml Inj 2 Ml IVP 12/17/24 13:36 4 mg Q6H PRN Administration NAUSEA OR VOMITING Protocol Pantoprazole Sodium 40 mg 11/17/24 21:00 Pantoprazole Inj 40 Mg Vial IVP 12/17/24 20:59 BID APOORVA Sennosides 1 tab 11/18/24 09:00 Senna Tablet PO 12/18/24 08:59 QDAY APOORVA Protocol Thiamine HCl 100 mg 11/17/24 16:45 11/17/24 17:03 Thiamine Inj 100 Mg/Ml Vial 2 Ml IVP 11/20/24 16:44 100 mg QDAY APOORVA Administration Thiamine HCl 100 mg 11/20/24 09:00 Thiamine 100 Mg Tablet PO 12/20/24 08:59 QDAY APOORVA Tramadol HCl 50 mg 11/17/24 13:43 Tramadol Hcl 50 Mg Tablet PO 11/22/24 13:42 Q6HR PRN PAIN SCALE 4-6 (Moderate Plan 29-year-old male with alcohol use disorder and cirrhosis admitted for severe alcohol withdrawal after developing symptoms in the ED post-psychiatric clearance, requiring ICU upgrade for CIWA score of 21. Neurology #Alcohol withdrawal #Alcohol use disorder Diagnostic Test: - First documented CIWA score on this admission: CIWA 26 at 13:43 on 11/17. - Patient has been experiencing symptoms including tremors, nausea, severe anxiety, restlessness, headache, and tactile hallucinations - Last drink 11/16 around noon. - EtOH level 394 on admission, al Treatment Plan: - Start CIWA protocol to titrate diazepam as needed for symptom control. - Neuroprotection with thiamine 100 mg daily prior to glucose administration to prevent Wernicke?s encephalopathy. - Nutritional support with folic acid 1 mg daily. - Adjunctive Dexmedetomidine 400 mcg PRN for agitation refractory to benzodiazepines, targeting RASS 0, monitor for bradycardia and hypotension. - Hypoglycemia protocol given increased risk from inadequate nutritional intake and underlying hepatic impairment. - Monitor for seizures and delirium tremens. - Replete electrolytes as needed. Cardiovascular #no active problems Respiratory #no active problems GI and F/E/N #Hepatitis DDx: alcohol hepatitis vs drug/toxin induced hepatitis Diagnostic Test: - On admission: AST 77, ALT 57. Treatment Plan: - Continue to monitor CMP and LFTs. - Continue thiamine 100mg PO daily. - Continue folic acid 1mg PO daily. - CIWA protocol. #Possible GI bleed Diagnostic Test: - Patient reports one episode of hematemesis, raising concern for upper GI bleed. Treatment Plan: - GI consulted ? recommendations appreciated and will follow. - Monitor H&H. - IV Pantoprazole twice daily for acid suppression. - Discontinue enoxaparin for DVT prophylaxis due to bleeding risk. #History of esophageal varices (Grade I) #History of cirrhosis Diagnostic Test: - CT abd/pelvis 09/02/2024: Primary hepatocellular disease versus cirrhosis. - EGD 11/02/2024: Grade I esophageal varices. Treatment Plan: - Maintain CIWA protocol due to alcohol withdrawal and risk for decompensation. - Monitor for signs of decompensated liver disease (worsening LFTs, ascites, encephalopathy). Renal #Mildly elevated creatine kinase DDx: muscle injury from recent fall vs alcohol-induced muscle injury. Diagnostic Test: - Total creatine kinase 289. Treatment Plan: - No immediate intervention required. - Continue to monitor renal function, electrolytes, and assess for signs of rhabdomyolysis (dark urine, worsening CK, rising creatinine). - Ensure adequate hydration as tolerated. Heme #Anemia DDx: nutritional deficiency anemia (B12, folate) vs alcohol-induced bone marrow suppression vs anemia of chronic disease. Diagnostic Test: - Admission hemoglobin 10.7. Treatment Plan: - Continue to monitor H&H. - Consider iron studies, B12, and folate levels if hemoglobin trends downward. - Transfuse if Hgb < 7 (current Hgb 11.4) or symptomatic. Endo #no active problems ID #no active problems Integumentary #Dermatitis Ddx: allergic contact dermatitis vs irritant contact dermatitis. Diagnostic Test: - Scattered erythematous maculopapular lesions along both forearms. With overlying excoriations on left forearm. - Patch of small, erythematous maculopapular lesions on the left lateral neck. Treatment Plan: - Topical Benadryl for itch as needed. - Monitor for progression or secondary infection. Health Maintenance: DVT prophylaxis: SCDs GI prophylaxis: Pantoprazole BID Diet: NPO Hirsch: none Lines: Peripherals Drips: none Vent: none CODE STATUS: FULL CODE Patient discussed with my senior resident Dr. Wade and attending, Dr. Sebastian. Star Riley DO, PGY 1
--- NOTE | 2024-11-17 20:37 | PD.IMCONS ---
HPI Data of Consult Requesting Physician: Lalo Phipps MD Primary Care Provider: Balwinder Humphrey MD Consult Narrative Reason for consult: Alcohol withdrawal in the setting of cirrhotic liver disease History of present illness: 29 years old male admitted through the ER with possible suicidal ideation he he was found wandering on the bridge and fell down after his informed him that she is filing for a divorce Patient and I had this conversation during last admission that this divorce is coming because continues to drink he has kids that he is not taking care of He was supposed to go to charge and seek help which he did not do 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 and copious amounts as well as previous history of band ligation of the esophageal varices and mucosal oozing of blood due to hypertensive portal gastropathy cc:: cc: Lalo Phipps MD Review of Systems Review of Systems ROS Unobtainable: unobtainable due to medical condition Meds Home Medications and Allergies Allergies Allergy/AdvReac Type Severity Reaction Status Date / Time No Known Allergies Allergy Verified 11/16/24 16:33 Exam Vital Signs Temp Pulse Resp BP Pulse Ox O2 Del Method 98.7 F 47 L 16 127/76 99 Room Air 11/17/24 16:28 11/17/24 18:20 11/17/24 18:00 11/17/24 18:00 11/17/24 18:00 11/17/24 18:00 Constitutional Comments: Chronically ill-appearing Routine Respiratory Exam Comments: Normal to auscultation Results Labs 11/18/24 05:13 11/18/24 05:13 Labs: Short CBC 11/17/24 Range/Units 11:39 WBC 6.3 (3.8-10.6) Thou/mm3 Hgb 11.4 L (13.5-16.0) g/dL Hct 34.2 L (41.0-53.0) % Plt Count 352 D (140-440) Thou/mm3 BMP 11/17/24 11:39 Sodium 143 Potassium 4.2 D Chloride 104 Carbon Dioxide 26.8 BUN 11 Creatinine 0.9 Glucose 79 Calcium 8.9 Cardiac Enzymes 11/17/24 Range/Units 11:39 Total Creatine Kinase 289 H D (34-171) U/L Troponin I < 0.020 (0.0-0.045) ng/mL Liver Function 11/17/24 Range/Units 11:39 Total Bilirubin 0.4 (0.3-1.2) mg/dL AST 57 H (0-34) U/L ALT 49 (10-49) U/L Alkaline Phosphatase 168 H D (46-116) U/L Albumin 4.7 (3.5-5.0) gm/dL Assessment and Plan Additional Assessment & Plan Additional Plan: # Acute alcohol withdrawal symptoms Being treated with diazepam phenobarb # Chronic liver disease secondary to alcohol # History of upper GI bleed requiring dilatation of the esophageal varices # Mucosal oozing of blood in the setting of hypertensive portal gastropathy Plan no need for any invasive GI workup at the moment I agree with the current management will follow the patient Thank you very much for the opportunity to participate in the care of this patient
[2024-11-17] MEDS: DIAZEPAM INJ 5 MG/ML VIAL 2 ML IVP (21:21)
[2024-11-18] VITALS (20 sets, daily range): BP systolic 101–125; BP diastolic 64–85; PULSE 35–77; RESP 10–98; TEMP 36.2–37; O2SAT 90–99; BMI 24.4
[2024-11-18] MEDS: DEXMEDETOMIDINE 400 MCG IVPB 400 MCG/100 ML BAG IV (00:40)
[2024-11-18] MEDS: ACETAMINOPHEN 325 MG TABLET 650 MG PO ×3 (01:02→19:47)
[2024-11-18] MEDS: RINGERS LACTATED 1000 ML 1,000 ML 100 ML IV (02:55)
[2024-11-18] MEDS: Magnesium Sulfate 2 GM Ivpb 2 GM/50 ML BAG IV (03:10)
[2024-11-18] MEDS: DiphenhydrAMINE/ZN ACET 2% CR 30 GM TUBE TOP (05:48)
[2024-11-18 06:08] LABS: Basophils # (Auto) 0.1 Thou/mm3 (0.0-0.2); Basophils % (Auto) 1 % (0-2.5); Eosinophils # (Auto) 0.1 Thou/mm3 (0.0-0.5); Eosinophils % (Auto) 3 % (0-10); Hematocrit 31.5 % (41.0-53.0); Hemoglobin 10.5 g/dL (13.5-16.0); Immature Granulocytes Auto 0.01 Thou/mm3 (0.00-0.00); Lymphocytes # (Auto) 1.4 Thou/mm3 (1.0-4.8); Lymphocytes % (Auto) 37 % (10-50); Mean Corpuscular HGB Conc 33.3 g/dl (31.0-37.0); Mean Corpuscular Hemoglobin 30.5 pg (25.0-35.0); Mean Corpuscular Volume 92 fL (80-100); Monocytes # (Auto) 0.5 Thou/mm3 (0.0-0.8); Monocytes % (Auto) 12 % (0-12); Neutrophils # (Auto) 1.7 Thou/mm3 (1.8-7.7); Neutrophils % (Auto) 46 % (37-80); Nucleated Red Blood Cell # 0.00 Thou/mm3 (0.00-0.00); Nucleated Red Blood Cell % 0 /100 WBC (0); Platelet Count 278 Thou/mm3 (140-440); RDW Standard Deviation 59.4 fL (35.1-43.9); Red Blood Count 3.44 Miln/mm3 (4.50-5.90); White Blood Count 3.7 Thou/mm3 (3.8-10.6)
[2024-11-18 06:48] LABS: Alanine Aminotransferase 33 U/L (10-49); Albumin, Serum 4.0 gm/dL (3.5-5.0); Albumin/Globulin Ratio 1.7 (1.2-2.2); Alkaline Phosphatase 143 U/L (46-116); Anion Gap 13 (7-16); Aspartate Amino Transferase 40 U/L (0-34); BUN/Creatinine Ratio 11 Ratio (12-20); Bilirubin,Total 0.8 mg/dL (0.3-1.2); Blood Urea Nitrogen 9 mg/dL (9-23); Calcium 8.6 mg/dL (8.3-10.6); Calcium (Corrected) 8.6 mg/dL (8.5-10.1); Carbon Dioxide 24.1 mMol/L (20.0-31.0); Chloride 101 mMol/L (98-107); Creatinine (Component) 0.8 mg/dL (0.6-1.3); Estimated Creatinine Clearance 107.1 mL/min (>60); Globulin 2.3 gm/dL (2.3-3.5); Glucose 78 mg/dL (74-106); Magnesium 3.2 mg/dL (1.6-2.6); Osmolality,Calculated 273 (275-295); Potassium 3.8 mMol/L (3.4-5.1); Sodium 138 mMol/L (136-145); Total Protein 6.3 gm/dL (5.7-8.2); eGFR > 60 See Note
--- NOTE | 2024-11-18 07:31 | EKG_ITS ---
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
--- NOTE | 2024-11-18 08:21 | PC.NURSE ---
Unable to give CIWA protocol medications due to patient bradycardiac, aware.
[2024-11-18] MEDS: THIAMINE INJ 100 MG/ML VIAL 2 ML IVP (08:53)
[2024-11-18] MEDS: FOLIC ACID INJ 1 MG/0.2 ML IVP (09:02)
[2024-11-18] MEDS: PANTOPRAZOLE 40 MG TABLET PO ×2 (09:02→21:19)
[2024-11-18 10:07] LABS: INR 1.0 (0.9-1.3); Partial Thromboplastin Time 25.7 Seconds (22.0-36.0); Prothrombin Time 10.4 Seconds (9.0-12.2)
[2024-11-18] MEDS: LACTULOSE SYRUP 20 GM/30 ML UDC 30 GM PO (10:11)
[2024-11-18] MEDS: LIDOCAINE 5% 1 PATCH TOP (10:12)
[2024-11-18] MEDS: FAMOTIDINE 20 MG TABLET PO (10:13)
[2024-11-18] MEDS: DIAZEPAM INJ 5 MG/ML VIAL 2 ML 2.5 MG IVP ×4 (10:20→21:40)
--- NOTE | 2024-11-18 10:42 | ESPR_ITS ---
<Statement entered by Pranav Hodges MD - 11/18/24 15:13> Patient was seen and examined in ICU this morning. Overnight, patient received diazepam 5 mg at 9:21 PM for CIWA 40, lorazepam 1 mg at 10:16 PM for CIWA 7. Precedex low-dose 0.2 micrograms was started at 12:40 AM due to CIWA of 15. Librium was given brush finisher although patient was bradycardiac in 30s.Labs revealed WBC 3.7, hemoglobin 10.5, platelet 278. Chemistry panel was unremarkable. Kidney function stable. Magnesium 2.2. AST 40. ALP 143. 1/2 blood cultures grew GPC resembling staph. MRSA screen pending. Patient was noted to have bradycardia heart rate down to 30 to 40s but improving with movement and while he was awake.Patient was awake and alert x3. EKG showed sinus bradycardia with no acute ST-T changes or heart blocks. QTc 375. Librium was held and Precedex was discontinued at 6:50 AM. Patient was complaining of generalized abdominal pain with guarding to palpation. Beatty sign is positive. CT abdomen pelvis showed cholelithiasis, negative for cholecystitis. Patient denied having a bowel movement since admission. He was given lactulose 30 g x 1 after which she had a bowel movement without any blood. He was also complaining of back pain for which lidocaine patch was given. Tylenol was ordered for abdominal discomfort and generalized bodyaches. Diet was resumed. He received diazepam due to CIWA of 9. Primary team was given a sign out in the afternoon for continued care. Primary team was planning to start gabapentin for his generalized body pain. Family was updated regarding the plan. All labs and orders were reviewed. I discussed and supervised with the planning intern physician who took care of this patient. I personally saw and examined the patient. I agree with most of the assessment and plan. Disclaimer: Despite multiple revisions, due to the dictation software being used, the document bellow may not be free of grammatical errors including phonetic/typographic errors. However, this does not deter from our commitment to providing health care in the patient's best interest in mind. Plan of care discussed with attending Physician Dr.Malli Pranav Hodges MD PGY-3 Documentation for date of: 11/18/24 Subjective Subjective Interval history: Clinical Course Prior to ICU Admission: After the patient was medically cleared from psychiatric evaluation and deemed ready for discharge from the ED, he began having symptoms consistent with alcohol withdrawal. Patient was admitted for observation and management of alcohol withdrawal. Patient received diazepam 10mg x1 in the ED prior to admission. The primary team continued treatment with diazepam 5 mg, followed by diazepam 10 mg, phenobarbital 130 mg, and chlordiazepoxide 50mg. However, the patient?s condition did not improve, prompting a consult to the ICU team. History Obtained by ICU team from patient before upgrade: 29-year-old male with a past medical history of alcohol use disorder, multiple prior hospitalizations for alcohol withdrawal, cirrhosis, and esophageal varices, presented to the ED on 11/16 for evaluation of suicidal ideation after being picked up by police and EMS. He reported that his last alcoholic drink was a 40-ounce beer around noon on 11/16. He stated that two days prior, he had been consuming approximately three 40-ounce beers daily. He endorsed generalized abdominal pain, back pain, and neck pain. He initially denied hematemesis. History Obtained by ICU team from patient after upgrade to ICU: Upon further questioning, the patient explained that he had been experiencing generalized body aches and alcohol withdrawal symptoms, and was on his way to the clinic/ED when he tripped over a ledge and rolled down a hill. He denied loss of consciousness or head trauma from the fall. After the fall, he was found by police near a bridge, and EMS was called when it was mistakenly assumed he was attempting to jump off the bridge. Patient also reported the onset of a pruritic rash approximately six days ago, which began on the left side of his neck and spread to both upper extremities. He denied any known allergies, new personal care products, recent travel, or similar symptoms in household contacts. 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 Although the patient initially denied hematemesis, he later recalled a single episode of bloody vomitus a few days prior. He reported his last meal and bowel movement occurred yesterday, with the stool described as normal, without diarrhea or visible blood. Due to persistent withdrawal symptoms and a CIWA score of 21, the patient was upgraded to the ICU for closer monitoring and management. Interval History: 11/18/2024: Overnight patient got Diazepam 5mg at 9:21pm for CIWA of 14, Lorazepam 1mg at 10:16 for CIWA of 7, Precedex 0.2 mcg ggt started at 12:40AM for CIWA of 15. Patient also received Librium 50mg Q6H. This morning, the patient's heart rate was in the 30-40s. Librium was held and Precedex ggt was stopped at 6:50AM. Patient's EKG on admission showed sinus rhythm. Repeat EKG this morning showed sinus bradycardia with QTc 375. Patient urine output was 450 cc for the past 12 hours. Patient continues to report generalized abdominal pain, and a positive Beatty's sign was elicited on exam. CT of the abdomen and pelvis on 11/17 showed cholelithiasis, negative for cholecystitis. Patient was given lactulose and subsequently had a bowel movement. Additionally, the patient reports back pain, for which a lidocaine patch was given. Acetaminophen was also given for abdominal pain. The patient was able to tolerate lunch. CIWA score was 9 at the time of downgrade to the medical floor for continued management. Exam Vital Signs Temp Pulse Resp BP Pulse Ox O2 Del Method 98.3 F 63 17 117/71 97 Room Air 11/18/24 10:12 11/18/24 10:00 11/18/24 10:00 11/18/24 10:00 11/18/24 10:11/18/24 10:00 Narrative Exam General: A&O x3, Anxious. Not in acute distress. Head: Normocephalic, atraumatic. Eyes: Pupils equally round and reactive to light. Anicteric. Neck: Patch of small, erythematous maculopapular lesions on the left lateral neck. Mouth/Throat: Oropharynx clear, mucous membranes moist. Heart: Regular rate and rhythm, no murmurs. No JVD. Lungs: Clear to auscultation with no wheezing or crackles. Non-labored respirations, symmetric chest rise, no use of accessory muscles. Abdomen: Soft, generalized tenderness to soft palpation with guarding. No rebound tenderness. No spider angiomas, no caput medusae, no fluid shift. Extremities: No edema. Posterior tibial pulses are 2+ bilaterally. 2+ radial pulse bilaterally. No clubbing or cyanosis. No mottling. Arms extended and fingers spread apart with mild tremors. Skin: Scattered erythematous maculopapular lesions along both forearms. With overlying excoriations on left forearm. Objective Labs 11/18/24 05:13 11/18/24 05:13 Labs: Laboratory Results - last 24 hr 11/16/24 11/17/24 11/18/24 17:12 11:39 05:13 WBC 6.3 3.7 L D RBC 3.76 L 3.44 L Hgb 11.4 L 10.5 L Hct 34.2 L 31.5 L MCV 91 92 MCH 30.3 30.5 MCHC 33.3 33.3 RDW Std Deviation 60.2 H 59.4 H Plt Count 352 D 278 D Neut % (Auto) 61 46 Lymph % (Auto) 26 37 [place] % (Auto) 11 12 Eos % (Auto) 1 3 Baso % (Auto) 1 1 Neut # (Auto) 3.8 1.7 L Lymph # (Auto) 1.7 1.4 [place] # (Auto) 0.7 0.5 Eos # (Auto) 0.1 0.1 Baso # (Auto) 0.1 0.1 Immature Gran # (Auto) 0.01 H 0.01 H Absolute Nucleated RBC 0.00 0.00 Immature Gran % 0 0 Nucleated RBC % 0 0 PT INR APTT Sodium 143 138 Potassium 4.2 D 3.8 Chloride 104 101 Carbon Dioxide 26.8 24.1 Anion Gap 12 13 BUN 11 9 Creatinine 0.9 0.8 Estim Creat Clear Calc 107.2 107.1 eGFR > 60 > 60 BUN/Creatinine Ratio 12 11 L Glucose 79 78 Calculated Osmolality 283 273 L Lactic Acid 1.2 Calcium 8.9 8.6 Corrected Calcium 8.9 8.6 Phosphorus 4.2 Magnesium 1.8 3.2 H Total Bilirubin 0.4 0.8 AST 57 H 40 H ALT 49 33 Alkaline Phosphatase 168 H D 143 H D Total Creatine Kinase 289 H D Troponin I < 0.020 Total Protein 7.3 6.3 Albumin 4.7 4.0 D Globulin 2.6 2.3 Albumin/Globulin Ratio 1.8 1.7 Lipase Cancelled 44 Procalcitonin 0.05 11/18/24 09:00 WBC RBC Hgb Hct MCV MCH MCHC RDW Std Deviation Plt Count Neut % (Auto) Lymph % (Auto) [place] % (Auto) Eos % (Auto) Baso % (Auto) Neut # (Auto) Lymph # (Auto) [place] # (Auto) Eos # (Auto) Baso # (Auto) Immature Gran # (Auto) Absolute Nucleated RBC Immature Gran % Nucleated RBC % PT 10.4 INR 1.0 APTT 25.7 Sodium Potassium Chloride Carbon Dioxide Anion Gap BUN Creatinine Estim Creat Clear Calc eGFR BUN/Creatinine Ratio Glucose Calculated Osmolality Lactic Acid Calcium Corrected Calcium Phosphorus Magnesium Total Bilirubin AST ALT Alkaline Phosphatase Total Creatine Kinase Troponin I Total Protein Albumin Globulin Albumin/Globulin Ratio Lipase Procalcitonin Quality Measures Quality Measures VTE prophylaxis (SCds) Assessment & Plan Assessment Current Active Medications: Generic Name Dose Route Start Last Admin Trade Name Freq PRN Reason Stop Dose Admin Acetaminophen 650 mg 11/17/24 13:43 11/18/24 01:02 Acetaminophen 325 Mg Tablet PO 12/17/24 13:42 650 mg Q6H PRN Administration PAIN OR FEVER > 101 Protocol Bisacodyl 10 mg 11/17/24 13:37 Bisacodyl 5 Mg Tabec PO 12/17/24 13:36 QDAY PRN CONSTIPATION Protocol Chlordiazepoxide HCl 50 mg 11/17/24 14:30 11/18/24 05:27 Chlordiazepoxide Hcl 25 Mg Capsule PO 11/22/24 14:29 50 mg On Hold: 11/18/24 07:11 Q6HR APOORVA Administration Dextrose 25 ml 11/17/24 16:01 Dextrose 50%-Water Inj 50 Ml Syringe IV 12/17/24 16:00 Q15MIN PRN BG 50-70 responsive npo pt Dextrose 50 ml 11/17/24 16:01 Dextrose 50%-Water Inj 50 Ml Syringe IV 12/17/24 16:00 Q15MIN PRN BG <50 OR BG <70 & pt unresponsive Diazepam 10 mg 11/17/24 16:13 Diazepam Inj 5 Mg/Ml Vial 2 Ml IVP 11/22/24 13:36 Q2HR PRN CIWA SCORE 20-25 Diazepam 2.5 mg 11/17/24 16:13 11/18/24 10:20 Diazepam Inj 5 Mg/Ml Vial 2 Ml IVP 11/22/24 13:36 2.5 mg Q2HR PRN Administration CIWA SCORE 8-13 Diazepam 5 mg 11/17/24 16:13 11/17/24 21:21 Diazepam Inj 5 Mg/Ml Vial 2 Ml IVP 11/22/24 13:36 5 mg Q2HR PRN Administration CIWA SCORE 14-19 Folic Acid 1 mg 11/20/24 09:00 Folic Acid 1 Mg Tablet PO 12/20/24 08:59 QDAY APOORVA Folic Acid 1 mg 11/17/24 16:45 11/18/24 09:02 Folic Acid Inj 1 Mg/0.2 Ml IVP 11/19/24 16:44 1 mg QDAY APOORVA Administration Glucagon 1 mg 11/17/24 16:01 Glucagon Inj 1 Mg Vial IM Q15MIN PRN BG <70, and no IV access Lactated Ringer's 1,000 mls @ 100 mls/hr 11/17/24 15:09 11/18/24 02:55 Lactated Ringers IV 11/18/24 11:08 100 mls/hr .Q10H APOORVA Administration Dexmedetomidine/Sodium Chloride 400 mcg in 100 mls @ 3.175 mls/hr 11/17/24 16:07 11/18/24 06:45 Precedex Ivpb IV 12/17/24 16:06 0 mcg/kg/hr .Q24H PRN 0 mls/hr Per PROTOCOL Titration Protocol 0.2 MCG/KG/HR Lorazepam 1 mg 11/17/24 14:19 11/17/24 22:16 Lorazepam 0.5 Mg Tablet PO 11/22/24 14:18 1 mg Q8HR PRN Administration ALCOHOL WITHDRAWAL Ondansetron HCl 4 mg 11/17/24 13:37 11/17/24 13:52 Ondansetron Inj 2 Mg/Ml Inj 2 Ml IVP 12/17/24 13:36 4 mg Q6H PRN Administration NAUSEA OR VOMITING Protocol Pantoprazole Sodium 40 mg 11/18/24 09:00 11/18/24 09:02 Pantoprazole 40 Mg Tablet PO 12/18/24 08:59 40 mg BID APOORVA Administration Sennosides 1 tab 11/18/24 09:00 11/18/24 08:51 Senna Tablet PO 12/18/24 08:59 1 tab QDAY APOORVA Administration Protocol Thiamine HCl 100 mg 11/17/24 16:45 11/18/24 08:53 Thiamine Inj 100 Mg/Ml Vial 2 Ml IVP 11/19/24 16:44 100 mg QDAY APOORVA Administration Thiamine HCl 100 mg 11/20/24 09:00 Thiamine 100 Mg Tablet PO 12/20/24 08:59 QDAY APOORVA Zinc Acetate/Diphenhydramine 0 gm 11/17/24 18:27 11/18/24 05:48 Diphenhydramine/Zn Acet 2% Cr 30 Gm Tube TOP 12/17/24 18:26 1 applicatio Q6HR PRN Administration RASH Plan 29-year-old male with alcohol use disorder and cirrhosis admitted for severe alcohol withdrawal after developing symptoms in the ED post-psychiatric clearance, requiring ICU upgrade for CIWA score of 21. Neurology #Alcohol withdrawal #Alcohol use disorder Diagnostic Test: - First documented CIWA score on this admission: CIWA 26 at 13:43 on 11/17. - Patient has been experiencing symptoms including tremors, nausea, severe anxiety, restlessness, headache, and tactile hallucinations - Last drink 11/16 around noon. - EtOH level 394 on ED admission. - Withdrawal symptoms started about 17 hours after ED admission. Treatment Plan: - Continue CIWA protocol to titrate diazepam as needed for symptom control and consider Gabapentin before DC - Neuroprotection with thiamine 100 mg daily prior to glucose administration to prevent Wernicke?s encephalopathy. - Nutritional support with folic acid 1 mg daily. - Discontinued Dexmedetomidine 400 mcg due to low CIWA and librium due to bradycardia - Hypoglycemia protocol given increased risk from inadequate nutritional intake and underlying hepatic impairment. - Monitor for seizures and delirium tremens. - Replete electrolytes as needed. Cardiovascular #Sinus Bradycardia DDx: Likely medication-related, secondary to Precedex and Lorazepam?both known to cause bradycardia. Patient remains asymptomatic. Diagnostic Test: - EKG on admission (11/17): sinus tachycardia. - EKG (11/18): sinus bradycardia with QTc 375 without any heart blocks. Treatment Plan: - Continue to monitor heart rate, respiratory rate and blood pressure while on benzodiazepines. - DC Precedex and librium - Diazepam as needed per CIWA Respiratory #no active problems GI and F/E/N #Hepatitis (resolving) DDx: alcohol hepatitis vs drug/toxin induced hepatitis,autoimmune, chronic inflammation, steatohepatitis,viral infection and traumatic. Diagnostic Test: - On admission: AST 77 --> 57 --> 40, ALT 57 --> 49 --> 33. Treatment Plan: - Continue to monitor CMP and LFTs. - Continue thiamine 100mg PO daily. - Continue folic acid 1mg PO daily. - CIWA protocol. - Outpatient follow up with GI speicialist #Possible GI bleed Diagnostic Test: - Patient reports one episode of hematemesis, raising concern for upper GI bleed. Treatment Plan: - GI consulted ? recommendations appreciated and will follow. - Monitor H&H. - Changed IV Pantoprazole to PO pantoprazole twice daily for acid suppression. - Discontinue enoxaparin for DVT prophylaxis due to bleeding risk. #History of esophageal varices (Grade I) #?Liver cirrhosis There is conflicting information regarding the diagnosis of cirrhosis. Further workup is recommended to clarify. Currently, there are no laboratory signs or clinical stigmata suggestive of end-stage liver disease. Coagulation panel, albumin, and bilirubin levels are all within normal limits. Recommend follow-up with GI for further evaluation. Diagnostic Test: - CT abd/pelvis 09/02/2024: Primary hepatocellular disease versus cirrhosis. - EGD 11/02/2024: Grade I esophageal varices. Treatment Plan: - Maintain CIWA protocol due to alcohol withdrawal and risk for decompensation. - Monitor for signs of decompensated liver disease (worsening LFTs, ascites, encephalopathy). #Constipation -Patient denied passing a BM since admission. C/O abdominal pain. Dx -Abdominal tenderness present on palp and + Beatty sign.CT abdomen showed cholelithiasis without cholecystitis Tx -Lactulose 30 gm x 1 with subsqeunt BM and Pepcid for Stomach discomfort -Tylenol for pain and lidocaine patch for back -Outpatient follow up with Gen surg for elective cholecystectomy Renal #Mildly elevated creatine kinase DDx: muscle injury from recent fall vs alcohol-induced muscle injury. Diagnostic Test: - Total creatine kinase 289. Treatment Plan: - No immediate intervention required. - Continue to monitor renal function, electrolytes, and assess for signs of rhabdomyolysis (dark urine, worsening CK, rising creatinine). - Ensure adequate hydration as tolerated. Heme #Normocytic Anemia #Neutropenia DDx: nutritional deficiency anemia (B12, folate) vs alcohol-induced bone marrow suppression vs anemia of chronic disease. Diagnostic Test: - Admission hemoglobin 10.7. - Vitamin B12 levels pending. Treatment Plan: - Continue to monitor H&H. - Consider iron studies if hemoglobin trends downward. - Transfuse if Hgb < 7 (current Hgb 11.4) or symptomatic. - Monitor for signs of infection like fever spikes and follow with Final BCx as 1/2 BCx Showed GPC. Endo #no active problems ID #no active problems Integumentary #Dermatitis Ddx: allergic contact dermatitis vs irritant contact dermatitis. Diagnostic Test: - Scattered erythematous maculopapular lesions along both forearms. With overlying excoriations on left forearm. - Patch of small, erythematous maculopapular lesions on the left lateral neck. Treatment Plan: - Topical Benadryl for itch as needed. - Monitor for progression or secondary infection. Health Maintenance: DVT prophylaxis: SCDs GI prophylaxis:PO Pantoprazole BID Diet: regular Hirsch: none Lines: Peripherals Drips: none Vent: none CODE STATUS: FULL CODE Patient discussed with my senior resident and attending, Dr. Sebastian. Star Riley DO, PGY 1
--- NOTE | 2024-11-18 13:34 | ESPR_ITS ---
<Statement entered by Lalo Phipps MD - 11/18/24 18:56> I have discussed and was present for the essential components of the history, physical examination, diagnosis, and treatment plan with the resident. I agree with the patient's care as documented by the resident and amended herein by me. Lalo Phipps MD FACP. Documentation for date of: 11/18/24 Subjective Subjective Interval history: ICU downgrade to telemetry on 11/18/2024. Garcia Juarez is 29y/o male with PMH of alcohol use disorder, multiple hospitalizations for alcohol withdrawal, esophageal varices and cirrhosis, admitted for severe alcohol withdrawal after developing symptoms in the ED post-psychiatric clearance, requiring ICU upgrade for CIWA score of 21. Per ICU note. Overnight (11/18) patient received Diazepam 5 mg at 9: 21 PM for CIWA of 14. Lorazepam 1mg at 10:16 PM for CIWA of 7 Precedex 0.2 mcg ggt at 12:40AM for CIWA 15 and Librium 50mg q6hr. Patient's HR was 30-40s so Librim and Precedex was held at 6:50am. Repeat EKG showed sinus bradycardi with QTc 375. Upon examination, Patient complains of significant 10/10 sharp, intermittent pain in all 4 quadrants of abdomen, knee, and back. Have given lidocaine patch and acetaminophen but didn't work. Added gabapentin PO for his pain. Patient will be downgraded to Telemetry for further managment. Will continue to monitor. Exam Vital Signs Temp Pulse Resp BP Pulse Ox O2 Del Method 97.9 F 57 L 14 124/75 96 Room Air 11/18/24 12:21 11/18/24 12:00 11/18/24 12:00 11/18/24 12:00 11/18/24 12:00 11/18/24 12:00 Narrative Exam General: No acute distress, well nourished, AAO x3 Eye: PERRL, EOMI, normal conjunctiva, no scleral icterus HENT: Normocephalic, atraumatic, hearing intact to conversation at normal volume, moist oral mucosa Neck: Supple, non-tender, no JVD, no lymphadenopathy Lungs: Non-labored respirations, symmetric chest rise, Clear to auscultate bilaterally, No wheezing, rhonchi, crackles Heart: Peripheral pulses intact bilaterally, Regular Rate and Rhythm. Abdomen: Soft, non-distended, no palpable masses, 10/10 sharp pain in all 4 quadrants on palpation. Musculoskeletal: Normal range of motion and strength, No cyanosis or edema, No visible joint swelling Skin: Skin is warm, dry, maculopapular rash in both forearms. Psychiatric: Cooperative, appropriate mood and affect, Awake and alert, not agitated Neuro: Cranial nerves II-XII grossly intact. Strength 5/5 throughout. Sensations intact to light touch. Objective Labs 11/18/24 05:13 11/18/24 05:13 Labs: Laboratory Results - last 24 hr 11/17/24 11/18/24 11/18/24 11:39 05:13 09:00 WBC 6.3 3.7 L D RBC 3.76 L 3.44 L Hgb 11.4 L 10.5 L Hct 34.2 L 31.5 L MCV 91 92 MCH 30.3 30.5 MCHC 33.3 33.3 RDW Std Deviation 60.2 H 59.4 H Plt Count 352 D 278 D Neut % (Auto) 61 46 Lymph % (Auto) 26 37 [place] % (Auto) 11 12 Eos % (Auto) 1 3 Baso % (Auto) 1 1 Neut # (Auto) 3.8 1.7 L Lymph # (Auto) 1.7 1.4 [place] # (Auto) 0.7 0.5 Eos # (Auto) 0.1 0.1 Baso # (Auto) 0.1 0.1 Immature Gran # (Auto) 0.01 H 0.01 H Absolute Nucleated RBC 0.00 0.00 Immature Gran % 0 0 Nucleated RBC % 0 0 PT 10.4 INR 1.0 APTT 25.7 Sodium 143 138 Potassium 4.2 D 3.8 Chloride 104 101 Carbon Dioxide 26.8 24.1 Anion Gap 12 13 BUN 11 9 Creatinine 0.9 0.8 Estim Creat Clear Calc 107.2 107.1 eGFR > 60 > 60 BUN/Creatinine Ratio 12 11 L Glucose 79 78 Calculated Osmolality 283 273 L Calcium 8.9 8.6 Corrected Calcium 8.9 8.6 Phosphorus 4.2 Magnesium 1.8 3.2 H Total Bilirubin 0.4 0.8 AST 57 H 40 H ALT 49 33 Alkaline Phosphatase 168 H D 143 H D Total Protein 7.3 6.3 Albumin 4.7 4.0 D Globulin 2.6 2.3 Albumin/Globulin Ratio 1.8 1.7 Quality Measures Quality Measures none Assessment & Plan Assessment Current Active Medications: Generic Name Dose Route Start Last Admin Trade Name Freq PRN Reason Stop Dose Admin Acetaminophen 650 mg 11/17/24 13:43 11/18/24 01:02 Acetaminophen 325 Mg Tablet PO 12/17/24 13:42 650 mg Q6H PRN Administration PAIN OR FEVER > 101 Protocol Bisacodyl 10 mg 11/17/24 13:37 Bisacodyl 5 Mg Tabec PO 12/17/24 13:36 QDAY PRN CONSTIPATION Protocol Chlordiazepoxide HCl 50 mg 11/17/24 14:30 11/18/24 05:27 Chlordiazepoxide Hcl 25 Mg Capsule PO 11/22/24 14:29 50 mg On Hold: 11/18/24 07:11 Q6HR APOORVA Administration Dextrose 25 ml 11/17/24 16:01 Dextrose 50%-Water Inj 50 Ml Syringe IV 12/17/24 16:00 Q15MIN PRN BG 50-70 responsive npo pt Dextrose 50 ml 11/17/24 16:01 Dextrose 50%-Water Inj 50 Ml Syringe IV 12/17/24 16:00 Q15MIN PRN BG <50 OR BG <70 & pt unresponsive Diazepam 10 mg 11/17/24 16:13 Diazepam Inj 5 Mg/Ml Vial 2 Ml IVP 11/22/24 13:36 Q2HR PRN CIWA SCORE 20-25 Diazepam 2.5 mg 11/17/24 16:13 11/18/24 12:20 Diazepam Inj 5 Mg/Ml Vial 2 Ml IVP 11/22/24 13:36 2.5 mg Q2HR PRN Administration CIWA SCORE 8-13 Diazepam 5 mg 11/17/24 16:13 11/17/24 21:21 Diazepam Inj 5 Mg/Ml Vial 2 Ml IVP 11/22/24 13:36 5 mg Q2HR PRN Administration CIWA SCORE 14-19 Folic Acid 1 mg 11/20/24 09:00 Folic Acid 1 Mg Tablet PO 12/20/24 08:59 QDAY [facility] Folic Acid 1 mg 11/17/24 16:45 11/18/24 09:02 Folic Acid Inj 1 Mg/0.2 Ml IVP 11/19/24 16:44 1 mg QDAY APOORVA Administration Glucagon 1 mg 11/17/24 16:01 Glucagon Inj 1 Mg Vial IM Q15MIN PRN BG <70, and no IV access Dexmedetomidine/Sodium Chloride 400 mcg in 100 mls @ 3.175 mls/hr 11/17/24 16:07 11/18/24 06:45 Precedex Ivpb IV 12/17/24 16:06 0 mcg/kg/hr .Q24H PRN 0 mls/hr Per PROTOCOL Titration Protocol 0.2 MCG/KG/HR Lorazepam 1 mg 11/17/24 14:19 11/17/24 22:16 Lorazepam 0.5 Mg Tablet PO 11/22/24 14:18 1 mg Q8HR PRN Administration ALCOHOL WITHDRAWAL Ondansetron HCl 4 mg 11/17/24 13:37 11/17/24 13:52 Ondansetron Inj 2 Mg/Ml Inj 2 Ml IVP 12/17/24 13:36 4 mg Q6H PRN Administration NAUSEA OR VOMITING Protocol Pantoprazole Sodium 40 mg 11/18/24 09:00 11/18/24 09:02 Pantoprazole 40 Mg Tablet PO 12/18/24 08:59 40 mg BID APOORVA Administration Sennosides 1 tab 11/18/24 09:00 11/18/24 08:51 Senna Tablet PO 12/18/24 08:59 1 tab QDAY APOORVA Administration Protocol Thiamine HCl 100 mg 11/17/24 16:45 11/18/24 08:53 Thiamine Inj 100 Mg/Ml Vial 2 Ml IVP 11/19/24 16:44 100 mg QDAY APOORVA Administration Thiamine HCl 100 mg 11/20/24 09:00 Thiamine 100 Mg Tablet PO 12/20/24 08:59 QDAY APOORVA Zinc Acetate/Diphenhydramine 0 gm 11/17/24 18:27 11/18/24 05:48 Diphenhydramine/Zn Acet 2% Cr 30 Gm Tube TOP 12/17/24 18:26 1 applicatio Q6HR PRN Administration RASH Plan 29-year-old male with alcohol use disorder and cirrhosis admitted for severe alcohol withdrawal after developing symptoms in the ED post-psychiatric clearance, requiring ICU upgrade for CIWA score of 21. Patient has been downgraded to telemetry on 11/18/2024 #Alcohol withdrawal #Alcohol use disorder -First CIWA on admission: 26 at 12:43 on 11/17/2024, with tremors, nausea, severe anxiety, restlessness, headache, tactile hallucination. -Last drink was ~40 ounces of beer on 11/16 at noon and EtOH leel of 394 on ED admission. -Withdrawl s/s started 17hrs after ED admission -Hepatitis likely due to alcohol VS drug/toxin, autoimmune, chronic inflammation, steatohepatitis, viral infection and traumatic Plan: -Continue CIWA protocol. Diazepam prn for symptom control. -Thiamine 100mg qd prior to glucose administration to prevent Wernicke?s encephalopathy -Folic acid 1mg qd for nutritional support -Discontinued dexmedetomidine 400 mcg d/t low CIWA and bradycardia -Discontinued Librium d/t bradycardia. -Hypoglycemia protocol for increased risk of inadequate nutiritional intake and underlying hepatic impairment. #Hepatitis #History of esophageal varices (Grade I) #History of cirrhosis -Hepatitis likely due to alcohol VS drug/toxin, autoimmune, chronic inflammation, steatohepatitis, viral infection and traumatic - CT abd/pelvis 09/02/2024: Primary hepatocellular disease versus cirrhosis. - EGD 11/02/2024: Grade I esophageal varices. Plan: -On CIWA protocol - Monitor for signs of decompensated liver disease (worsening LFTs, ascites, encephalopathy) #GI bleed rule out #Anemia -One episode of hematemesis. -On admission, Hgb: 10.7 Plan: -GI consulted, Recommendation appreciated -Monitor H&H -IV pantoprazole bid -Discontinued Enoxaparin for DVT prophylaxis. - Consider iron studies, B12, and folate levels if hemoglobin trends downward. - Transfuse if Hgb < 7 (current Hgb 11.4) or symptomatic. #Generalized abdominal pain -Patient tender in all 4 quadrants. -Likely due to alcohol withdrawal. -CT abd/pelvis (11/17/2024): Liver is irregular in contour, Thickening of the gastric mucosa. Cholelithiasis, no gallbladder wall thickening.Negative for pancreatitis. No renal or ureteral calculi, no hydronephrosis No bowel obstruction or diverticulitis Normal appendix, Bladder intact, Osseous structures intact. Plan: -Gabapentin 100 mg PO qd. -Acetaminphen prn #Sinus Bradycardia-Resolved -Likely medication induced from precede and lorazepam -on Diazepam prn per CIWA. #Dermatitis -allergic contact dermatitis vs irritant contact dermatitis -Multiple maculopapular lesions on forearms and left neck Plan: -Topical Benadryl prn Disposition: Tele med from ICU downgrade Diet: Regular diet GI prophylaxis: Pantoprazole 40mg po bid DVT prophylaxis: SCD Code:FULL Assessment and plan discussed with my attending physician Dr. Phipps and Dr. Martínez (PGY-3) Dr. Schultz (PGY-1) - Internal medicine resident
[2024-11-18] MEDS: GABAPENTIN 100 MG CAPSULE PO (15:07)
--- NOTE | 2024-11-18 20:41 | ESPR_ITS ---
Documentation for date of: 11/18/24 Subjective Subjective Interval history: Patient evaluated More alert and oriented Exam Vital Signs Temp Pulse Resp BP Pulse Ox O2 Del Method 98.6 F 64 15 125/85 H 97 Room Air 11/18/24 16:00 11/18/24 16:00 11/18/24 16:00 11/18/24 16:00 11/18/24 16:00 11/18/24 12:00 Objective Labs 11/18/24 05:13 11/18/24 05:13 Labs: Laboratory Results - last 24 hr 11/18/24 11/18/24 05:13 09:00 WBC 3.7 L D RBC 3.44 L Hgb 10.5 L Hct 31.5 L MCV 92 MCH 30.5 MCHC 33.3 RDW Std Deviation 59.4 H Plt Count 278 D Neut % (Auto) 46 Lymph % (Auto) 37 [place] % (Auto) 12 Eos % (Auto) 3 Baso % (Auto) 1 Neut # (Auto) 1.7 L Lymph # (Auto) 1.4 [place] # (Auto) 0.5 Eos # (Auto) 0.1 Baso # (Auto) 0.1 Immature Gran # (Auto) 0.01 H Absolute Nucleated RBC 0.00 Immature Gran % 0 Nucleated RBC % 0 PT 10.4 INR 1.0 APTT 25.7 Sodium 138 Potassium 3.8 Chloride 101 Carbon Dioxide 24.1 Anion Gap 13 BUN 9 Creatinine 0.8 Estim Creat Clear Calc 107.1 eGFR > 60 BUN/Creatinine Ratio 11 L Glucose 78 Calculated Osmolality 273 L Calcium 8.6 Corrected Calcium 8.6 Magnesium 3.2 H Total Bilirubin 0.8 AST 40 H ALT 33 Alkaline Phosphatase 143 H D Total Protein 6.3 Albumin 4.0 D Globulin 2.3 Albumin/Globulin Ratio 1.7 Impressions Impression: Alcohol withdrawal acute improving Stable hemoglobin hematocrit no need for any invasive GI workup Assessment & Plan A&P Narrative # Acute alcohol withdrawal symptoms Being treated with diazepam phenobarb # Chronic liver disease secondary to alcohol # History of upper GI bleed requiring dilatation of the esophageal varices # Mucosal oozing of blood in the setting of hypertensive portal gastropathy Plan no need for any invasive GI workup at the moment I agree with the current management will follow the patient Thank you very much for the opportunity to participate in the care of this patient Time Spent With Patient Time: Total time spent is greater than 50% in coordination of care (as documented) at patient's floor/unit and/or counseling patient:
[2024-11-18 22:36] LABS: Vitamin B12 432 pg/mL (211-911)
[2024-11-19] VITALS (10 sets, daily range): BP systolic 98–134; BP diastolic 64–88; PULSE 47–78; RESP 7–97; TEMP 36.7–37.3; O2SAT 95–99; BMI 24.3
[2024-11-19] MEDS: ACETAMINOPHEN 325 MG TABLET 650 MG PO (01:18)
[2024-11-19] MEDS: DIAZEPAM INJ 5 MG/ML VIAL 2 ML IVP ×4 (01:35→19:32)
[2024-11-19 06:57] LABS: Basophils # (Auto) 0.0 Thou/mm3 (0.0-0.2); Basophils % (Auto) 1 % (0-2.5); Eosinophils # (Auto) 0.1 Thou/mm3 (0.0-0.5); Eosinophils % (Auto) 2 % (0-10); Hematocrit 36.8 % (41.0-53.0); Hemoglobin 12.1 g/dL (13.5-16.0); Immature Granulocytes Auto 0.01 Thou/mm3 (0.00-0.00); Lymphocytes # (Auto) 1.5 Thou/mm3 (1.0-4.8); Lymphocytes % (Auto) 40 % (10-50); Mean Corpuscular HGB Conc 32.9 g/dl (31.0-37.0); Mean Corpuscular Hemoglobin 30.0 pg (25.0-35.0); Mean Corpuscular Volume 91 fL (80-100); Monocytes # (Auto) 0.5 Thou/mm3 (0.0-0.8); Monocytes % (Auto) 14 % (0-12); Neutrophils # (Auto) 1.6 Thou/mm3 (1.8-7.7); Neutrophils % (Auto) 42 % (37-80); Nucleated Red Blood Cell # 0.00 Thou/mm3 (0.00-0.00); Nucleated Red Blood Cell % 0 /100 WBC (0); Platelet Count 272 Thou/mm3 (140-440); RDW Standard Deviation 58.4 fL (35.1-43.9); Red Blood Count 4.03 Miln/mm3 (4.50-5.90); White Blood Count 3.8 Thou/mm3 (3.8-10.6)
[2024-11-19 07:17] LABS: Alanine Aminotransferase 33 U/L (10-49); Albumin, Serum 4.3 gm/dL (3.5-5.0); Albumin/Globulin Ratio 1.6 (1.2-2.2); Alkaline Phosphatase 167 U/L (46-116); Anion Gap 11 (7-16); Aspartate Amino Transferase 65 U/L (0-34); BUN/Creatinine Ratio 7 Ratio (12-20); Bilirubin,Total 0.5 mg/dL (0.3-1.2); Blood Urea Nitrogen 6 mg/dL (9-23); Calcium 9.4 mg/dL (8.3-10.6); Calcium (Corrected) 9.4 mg/dL (8.5-10.1); Carbon Dioxide 25.3 mMol/L (20.0-31.0); Chloride 103 mMol/L (98-107); Creatinine (Component) 0.9 mg/dL (0.6-1.3); Estimated Creatinine Clearance 95.2 mL/min (>60); Globulin 2.7 gm/dL (2.3-3.5); Glucose 98 mg/dL (74-106); Magnesium 1.9 mg/dL (1.6-2.6); Osmolality,Calculated 275 (275-295); Phosphorous 4.4 mg/dL (2.4-5.1); Potassium 3.6 mMol/L (3.4-5.1); Sodium 139 mMol/L (136-145); Total Protein 7.0 gm/dL (5.7-8.2); eGFR > 60 See Note
[2024-11-19] MEDS: VANCOMYCIN/NS 1 GM IVPB 200 ML IV ×3 (08:54→21:53)
[2024-11-19] MEDS: MORPHINE SULF INJ 4 MG/ML VIAL 1 MG IVP ×2 (08:54→13:18)
[2024-11-19] MEDS: FOLIC ACID INJ 1 MG/0.2 ML IVP (08:55)
[2024-11-19] MEDS: THIAMINE INJ 100 MG/ML VIAL 2 ML IVP (08:58)
[2024-11-19] MEDS: GABAPENTIN 100 MG CAPSULE PO (09:12)
[2024-11-19] MEDS: PANTOPRAZOLE 40 MG TABLET PO ×2 (09:12→21:53)
[2024-11-19] MEDS: Magnesium Sulfate 4 GM Ivpb 4 GM/50 ML BAG IV (11:03)
--- NOTE | 2024-11-19 13:25 | ESPR_ITS ---
<Statement entered by Wilber Beasley MD - 11/19/24 16:26> Patient seen and assessed in hospital bed continues to have elevated CIWA scores which fluctuate from single-digit to as high as 22; moreover, added Librium 25 mg 3 times daily and will continue CIWA protocol with diazepam. Patient's blood cultures grew GPC which is staph appearing from both sets but only 1 bottle each. Will repeat blood cultures and started patient on IV vancomycin. Will continue monitoring the patient closely and wait for blood culture to result. I have personally seen and examined the patient. I agree with the resident's assessment and plan as documented below. Wilber Beasley DO PGY-2 Internal Medicine - [facility] Documentation for date of: 11/19/24 Subjective Subjective Interval history: Patient seen at bedside. No acute overnight events. Patient is complaining of insomnia, ongoing abdominal and neck/shoulder pain. Tolerating meals, no nausea/vomiting. Endorising hallucinations (auditory and visual) particularly at night. CIWA scores in moderate/severe range still. Added chlordiazepoxide TID for ongoing sx. Patient's blood cultures grew GPC, staph appearing from both sets but only 1 bottle each. Repeated BCx and started patient on IV vancomycin 11/19. Will continue monitoring the patient closely and wait for blood culture to result. Exam Vital Signs Temp Pulse Resp BP Pulse Ox O2 Del Method 98.0 F 47 L 19 102/65 97 Room Air 11/19/24 04:00 11/19/24 04:00 11/19/24 04:00 11/19/24 04:00 11/19/24 04:00 11/18/24 20:00 Narrative Exam General: No acute distress, well nourished, AAO x3, mild tremors whole body Eye: PERRL, EOMI, normal conjunctiva, no scleral icterus HENT: Normocephalic, atraumatic, hearing intact to conversation at normal volume, moist oral mucosa Neck: Supple, non-tender, no JVD, no lymphadenopathy Lungs: Non-labored respirations, symmetric chest rise, Clear to auscultate bilaterally, No wheezing, rhonchi, crackles Heart: Peripheral pulses intact bilaterally, Regular Rate and Rhythm. Abdomen: Soft, non-distended, no palpable masses, tenderness in all 4 quadrants on palpation. Musculoskeletal: Normal range of motion and strength, No cyanosis or edema, No visible joint swelling Skin: Skin is warm, dry, maculopapular rash in both forearms. Psychiatric: Cooperative, appropriate mood and affect, Awake and alert, not agitated Neuro: Cranial nerves II-XII grossly intact. Strength 5/5 throughout. Sensations intact to light touch. Objective Labs 11/19/24 04:34 11/19/24 04:34 Labs: Laboratory Results - last 24 hr 11/18/24 11/19/24 05:13 04:34 WBC 3.8 RBC 4.03 L Hgb 12.1 L Hct 36.8 L MCV 91 MCH 30.0 MCHC 32.9 RDW Std Deviation 58.4 H Plt Count 272 Neut % (Auto) 42 Lymph % (Auto) 40 [place] % (Auto) 14 H Eos % (Auto) 2 Baso % (Auto) 1 Neut # (Auto) 1.6 L Lymph # (Auto) 1.5 [place] # (Auto) 0.5 Eos # (Auto) 0.1 Baso # (Auto) 0.0 Immature Gran # (Auto) 0.01 H Absolute Nucleated RBC 0.00 Immature Gran % 0 Nucleated RBC % 0 Sodium 139 Potassium 3.6 Chloride 103 Carbon Dioxide 25.3 Anion Gap 11 BUN 6 L Creatinine 0.9 Estim Creat Clear Calc 95.2 eGFR > 60 BUN/Creatinine Ratio 7 L Glucose 98 Calculated Osmolality 275 Calcium 9.4 Corrected Calcium 9.4 Phosphorus 4.4 Magnesium 1.9 Total Bilirubin 0.5 AST 65 H ALT 33 Alkaline Phosphatase 167 H D Total Protein 7.0 Albumin 4.3 Globulin 2.7 Albumin/Globulin Ratio 1.6 Vitamin B12 432 Quality Measures Quality Measures VTE prophylaxis (SCds) Assessment & Plan Assessment Current Active Medications: Generic Name Dose Route Start Last Admin Trade Name Freq PRN Reason Stop Dose Admin Acetaminophen 650 mg 11/17/24 13:43 11/19/24 01:18 Acetaminophen 325 Mg Tablet PO 12/17/24 13:42 650 mg Q6H PRN Administration PAIN OR FEVER > 101 Protocol Bisacodyl 10 mg 11/17/24 13:37 Bisacodyl 5 Mg Tabec PO 12/17/24 13:36 QDAY PRN CONSTIPATION Protocol Dextrose 25 ml 11/17/24 16:01 Dextrose 50%-Water Inj 50 Ml Syringe IV 12/17/24 16:00 Q15MIN PRN BG 50-70 responsive npo pt Dextrose 50 ml 11/17/24 16:01 Dextrose 50%-Water Inj 50 Ml Syringe IV 12/17/24 16:00 Q15MIN PRN BG <50 OR BG <70 & pt unresponsive Diazepam 10 mg 11/18/24 13:56 Diazepam Inj 5 Mg/Ml Vial 2 Ml IVP 11/22/24 16:12 Q4H PRN CIWA SCORE 20-25 Diazepam 2.5 mg 11/18/24 13:56 11/18/24 21:40 Diazepam Inj 5 Mg/Ml Vial 2 Ml IVP 11/22/24 16:12 2.5 mg Q4HR PRN Administration CIWA SCORE 8-13 Diazepam 5 mg 11/18/24 13:56 11/19/24 12:24 Diazepam Inj 5 Mg/Ml Vial 2 Ml IVP 11/22/24 16:12 5 mg Q4HR PRN Administration CIWA SCORE 14-19 Folic Acid 1 mg 11/20/24 09:00 Folic Acid 1 Mg Tablet PO 12/20/24 08:59 QDAY APOORVA Folic Acid 1 mg 11/17/24 16:45 11/19/24 08:55 Folic Acid Inj 1 Mg/0.2 Ml IVP 11/19/24 16:44 1 mg QDAY APOORVA Administration Gabapentin 100 mg 11/18/24 14:45 11/19/24 09:12 Gabapentin 100 Mg Capsule PO 12/18/24 14:44 100 mg QDAY APOORVA Administration Glucagon 1 mg 11/17/24 16:01 Glucagon Inj 1 Mg Vial IM Q15MIN PRN BG <70, and no IV access Vancomycin/Sodium Chloride 200 mls @ 120 mls/hr 11/19/24 08:45 11/19/24 08:54 Vancomycin/Ns 1 Gm Ivpb IV 11/26/24 08:44 120 mls/hr Q8HR APOORVA Administration Protocol Magnesium Sulfate 4 gm in 50 mls @ 12.5 mls/hr 11/19/24 10:01 11/19/24 11:03 Magnesium Sulfate Ivpb IV 11/19/24 14:00 12.5 mls/hr X1 ONE Administration Lorazepam 1 mg 11/17/24 14:19 11/17/24 22:16 Lorazepam 0.5 Mg Tablet PO 11/22/24 14:18 1 mg Q8HR PRN Administration ALCOHOL WITHDRAWAL Morphine Sulfate 1 mg 11/19/24 08:43 11/19/24 13:18 Morphine Sulf Inj 4 Mg/Ml Vial IVP 1 mg Q4HR PRN Administration Pain 7-10 Pantoprazole Sodium 40 mg 11/18/24 09:00 11/19/24 09:12 Pantoprazole 40 Mg Tablet PO 12/18/24 08:59 40 mg BID APOORVA Administration Pharmacy Consult 1 each 11/19/24 09:00 Vancomycin Pharmacy To Dose 1 Each Each IV 12/19/24 08:59 QDAY PRN RX Prochlorperazine Maleate 5 mg 11/19/24 10:00 Prochlorperazine Maleate 5 Mg Tablet PO 12/19/24 09:59 Q6HR PRN NAUSEA OR VOMITING Sennosides 1 tab 11/18/24 09:00 11/19/24 09:12 Senna Tablet PO 12/18/24 08:59 1 tab QDAY APOORVA Administration Protocol Thiamine HCl 100 mg 11/17/24 16:45 11/19/24 08:58 Thiamine Inj 100 Mg/Ml Vial 2 Ml IVP 11/19/24 16:44 100 mg QDAY APOORVA Administration Thiamine HCl 100 mg 11/20/24 09:00 Thiamine 100 Mg Tablet PO 12/20/24 08:59 QDAY APOORVA Zinc Acetate/Diphenhydramine 0 gm 11/17/24 18:27 11/18/24 05:48 Diphenhydramine/Zn Acet 2% Cr 30 Gm Tube TOP 12/17/24 18:26 1 applicatio Q6HR PRN Administration RASH Plan 29-year-old male with alcohol use disorder and cirrhosis admitted for severe alcohol withdrawal after developing symptoms in the ED post-psychiatric clearance, requiring ICU upgrade for CIWA score of 21. Patient has been downgraded to telemetry on 11/18/2024 #Alcohol withdrawal #Alcohol use disorder First CIWA on admission: 26 at 12:43 on 11/17/2024, with tremors, nausea, severe anxiety, restlessness, headache, tactile hallucination. Last drink was ~40 ounces of beer on 11/16 at noon and EtOH leel of 394 on ED admission. Withdrawl s/s started 17hrs after ED admission Hepatitis likely due to alcohol VS drug/toxin, autoimmune, chronic inflammation, steatohepatitis, viral infection and traumatic 11/19: CIWA ranging from 2-24 Plan: -Continue CIWA protocol. Diazepam prn for symptom control. -Added Chlordiazepoxide 25 mg 3 times daily -Thiamine 100mg qd prior to glucose administration to prevent Wernicke?s encephalopathy -Folic acid 1mg qd for nutritional support -Hypoglycemia protocol for increased risk of inadequate nutiritional intake and underlying hepatic impairment. #?GPC Bacteremia Patient's blood cultures grew GPC from 11/17, staph appearing from both sets but only 1 bottle each. Patients vitals stable, No WBC elevation Plan -Repeated BCx and started patient on IV vancomycin 11/19. -Will continue monitoring the patient closely and wait for blood culture to result. #Hepatitis #History of esophageal varices (Grade I) #History of cirrhosis -Hepatitis likely due to alcohol VS drug/toxin, autoimmune, chronic inflammation, steatohepatitis, viral infection and traumatic - CT abd/pelvis 09/02/2024: Primary hepatocellular disease versus cirrhosis. - EGD 11/02/2024: Grade I esophageal varices. Plan: -On CIWA protocol - Monitor for signs of decompensated liver disease (worsening LFTs, ascites, encephalopathy) #GI bleed rule out #Anemia -One episode of hematemesis. -On admission, Hgb: 10.7 Plan: -GI consulted, Recommendation appreciated -Monitor H&H -IV pantoprazole bid -Discontinued Enoxaparin for DVT prophylaxis. - Consider iron studies, B12, and folate levels if hemoglobin trends downward. - Transfuse if Hgb < 7 (current Hgb 11.4) or symptomatic. #Generalized abdominal pain -Patient tender in all 4 quadrants. -Likely due to alcohol withdrawal. -CT abd/pelvis (11/17/2024): Liver is irregular in contour, Thickening of the gastric mucosa. Cholelithiasis, no gallbladder wall thickening.Negative for pancreatitis. No renal or ureteral calculi, no hydronephrosis No bowel obstruction or diverticulitis Normal appendix, Bladder intact, Osseous structures intact. Plan: -Gabapentin 100 mg PO qd. -Acetaminphen prn #Sinus Bradycardia Likely medication induced from precede and lorazepam -on Diazepam prn per CIWA. #Dermatitis -allergic contact dermatitis vs irritant contact dermatitis -Multiple maculopapular lesions on forearms and left neck Plan: -Topical Benadryl prn Disposition: [facility] [place]: Regular diet GI prophylaxis: Pantoprazole 40mg po bid DVT prophylaxis: SCD Code:FULL Case discussed with my attending Dr. Reza, and senior resident, Dr. Gale Purdy MD PGY-1 Attending Provider Attestation/Addendum I reviewed labs, imaging, EKG, home medications and prior available records. Face to face evaluation was performed by me. I have personally examined the patient and discussed assessment and plan with the IM team. I reviewed the resident note and agree with the plan with exceptions as below. Alcohol abuse Alcohol withdrawal Prolonged QTc Gram-positive bacteremia Insomnia Continue CIWA protocol Blood cultures show gram-positive cocci. Continue IV vancomycin. Repeat blood culture Management of pain as needed Avoid QTc prolonging agents Replete electrolytes as needed
--- NOTE | 2024-11-19 14:24 | PC.CC ---
[id number] contacted Team B and spoke with Dr. Beasley and expressed the concerns of the pt and a MH eval once he is ready for d/c. Dr. Beasley agrees to the eval once pt is ready for d/c and will call ASW for updates.
[2024-11-19] MEDS: DIAZEPAM INJ 5 MG/ML VIAL 2 ML 10 MG IVP ×2 (15:13→17:18)
--- NOTE | 2024-11-19 16:24 | PC.SS ---
Update: Patient will need mental health evaluation once medically cleared. Resident team informed/updated by ED coordinator.
--- NOTE | 2024-11-19 19:16 | PD.IMPROG ---
Documentation for date of: 11/19/24 Subjective Subjective Interval history: Patient much more alert and lucid No evidence of any active GI bleed Exam Vital Signs Temp Pulse Resp BP Pulse Ox O2 Del Method 98.0 F 67 17 102/65 97 Room Air 11/19/24 04:00 11/19/24 08:06 11/19/24 08:06 11/19/24 04:00 11/19/24 04:00 11/18/24 20:00 Objective Labs 11/19/24 04:34 11/19/24 04:34 Labs: Laboratory Results - last 24 hr 11/18/24 11/19/24 05:13 04:34 WBC 3.8 RBC 4.03 L Hgb 12.1 L Hct 36.8 L MCV 91 MCH 30.0 MCHC 32.9 RDW Std Deviation 58.4 H Plt Count 272 Neut % (Auto) 42 Lymph % (Auto) 40 [place] % (Auto) 14 H Eos % (Auto) 2 Baso % (Auto) 1 Neut # (Auto) 1.6 L Lymph # (Auto) 1.5 [place] # (Auto) 0.5 Eos # (Auto) 0.1 Baso # (Auto) 0.0 Immature Gran # (Auto) 0.01 H Absolute Nucleated RBC 0.00 Immature Gran % 0 Nucleated RBC % 0 Sodium 139 Potassium 3.6 Chloride 103 Carbon Dioxide 25.3 Anion Gap 11 BUN 6 L Creatinine 0.9 Estim Creat Clear Calc 95.2 eGFR > 60 BUN/Creatinine Ratio 7 L Glucose 98 Calculated Osmolality 275 Calcium 9.4 Corrected Calcium 9.4 Phosphorus 4.4 Magnesium 1.9 Total Bilirubin 0.5 AST 65 H ALT 33 Alkaline Phosphatase 167 H D Total Protein 7.0 Albumin 4.3 Globulin 2.7 Albumin/Globulin Ratio 1.6 Vitamin B12 432 Impressions Impression: Alcohol withdrawal improving Multiple's episodes of GI bleeding requiring endoscopic intervention doing well No need for a repeat endoscopy Assessment & Plan A&P Narrative # Acute alcohol withdrawal symptoms Being treated with diazepam phenobarb # Chronic liver disease secondary to alcohol # History of upper GI bleed requiring dilatation of the esophageal varices # Mucosal oozing of blood in the setting of hypertensive portal gastropathy Plan no need for any invasive GI workup at the moment I agree with the current management will follow the patient Thank you very much for the opportunity to participate in the care of this patient Time Spent With Patient Time: Total time spent is greater than 50% in coordination of care (as documented) at patient's floor/unit and/or counseling patient:
[2024-11-19] MEDS: MELATONIN 3 MG TABLET 6 MG PO (21:53)
[2024-11-20] VITALS (8 sets, daily range): BP systolic 84–119; BP diastolic 50–85; PULSE 54–83; RESP 13–27; TEMP 36.2–37.2; O2SAT 95–99
[2024-11-20 05:55] LABS: Magnesium 2.0 mg/dL (1.6-2.6); Vancomycin,Trough 18.4 mcg/mL (5.0-10.0)
[2024-11-20] MEDS: VANCOMYCIN/NS 1 GM IVPB 200 ML IV ×3 (06:16→21:45)
--- NOTE | 2024-11-20 08:12 | ECHO_ITS ---
Transthoracic Echo Report Ht (in): 62 Wt (lb): 138 Exam Location: [facility] Status: Inpatient Hide Worker: Jacey Andrade Indications: Procedure Performed: BP: 100 / 57 HR: 69 MEASUREMENTS (Male / Female) Normal Values 2D ECHO LV Diastolic Diameter PLAX 5.2 cm 4.2 - 5.9 / 3.9 - 5.3 cm LV Systolic Diameter PLAX 3.2 cm IVS Diastolic Thickness 0.7 cm 0.6 - 1.0 / 0.6 - 0.9 cm LVPW Diastolic Thickness 1.0 cm 0.6 - 1.0 / 0.6 - 0.9 cm LV Relative Wall Thickness 0.3 LVOT Diameter 1.9 cm LA Volume Index 28.8 cm?/m? 16 - 28 cm?/m? Ascending Aorta Diameter 2.3 cm M-MODE AV Cusp Separation MM 0.9 cm DOPPLER AV Peak Velocity 159.0 cm/s AV Peak Gradient 10.1 mmHg AV Mean Gradient 6.0 mmHg AV Velocity Time Integral 33.7 cm LVOT Peak Velocity 148.0 cm/s LVOT Peak Gradient 8.8 mmHg LVOT Velocity Time Integral 28.5 cm LVOT Cardiac Index 3343.2 cm?/min?m? AV Area Cont Eq vti 2.4 cm? AV Area Cont Eq pk 2.6 cm? MV Area PHT 3.9 cm? Mitral E Point Velocity 94.6 cm/s Mitral A Point Velocity 57.2 cm/s Mitral E to A Ratio 1.7 LV E' Lateral Velocity 14.9 cm/s Mitral E to LV E' Lateral Ratio 6.3 LV E' Septal Velocity 10.2 cm/s Mitral E to LV E' Septal Ratio 9.3 TR Peak Velocity 206.7 cm/s TR Peak Gradient 17.1 mmHg PV Peak Velocity 111.0 cm/s PV Peak Gradient 4.9 mmHg FINDINGS Left Ventricle Normal left ventricular size, wall thickness, systolic function with no obvious regional wall motion abnormalities. Normal left ventricular diastolic filling pattern for age. The ejection fraction is visually estimated at 60-65 %. Right Ventricle The right ventricle is normal in size and systolic function. Left Atrium The left atrium is normal by two-dimensional, color flow and Doppler imaging with no structural abnormalities, no thrombus formation present. Right Atrium The right atrium is normal by two-dimensional imaging, color flow and Doppler imaging with no structural abnormalities, no thrombus formation present. Atrial Septum The interatrial septum appears normal with no evidence of a shunt. Aorta The aorta is normal by two-dimensional, color flow and Doppler interrogation. Mitral Valve The mitral valve is normal by two-dimensional, color flow and Doppler interrogation. There is no significant mitral valve regurgitation, stenosis or prolapse. Aortic Valve The aortic valve is trileaflet and normal by two-dimensional, color flow and Doppler interrogation. There is no significant aortic valve regurgitation. Tricuspid Valve The tricuspid valve is normal by two-dimensional, color flow and Doppler interrogation. There is trace tricuspid valve regurgitation. Pulmonic Valve The pulmonic valve is not well visualized. There is no significant pulmonic valve regurgitation. Vessels The pulmonary artery appears normal. The inferior vena cava pulmonary and hepatic veins appear normal. Pericardium The pericardium is normal by two-dimensional imaging. There is no significant pericardial effusion. CONCLUSIONS Indication: Endocarditis No clear evidence of vegetations. TTE suboptimal and consider DANO if high index of clinical suspicion. Normal left ventricular size and function. Approximate ejection fraction is 60- 65%. Normal right ventricular size and function. Trace tricuspid regurgitation noted. No pericardial effusion Nish Roca (Electronically Signed) Final Date: 21 November 2024 19:10
[2024-11-20] MEDS: FOLIC ACID 1 MG TABLET PO (09:07)
[2024-11-20] MEDS: THIAMINE 100 MG TABLET PO (09:07)
[2024-11-20] MEDS: GABAPENTIN 100 MG CAPSULE PO ×3 (09:07→21:47)
[2024-11-20] MEDS: PANTOPRAZOLE 40 MG TABLET PO ×2 (09:08→21:47)
--- NOTE | 2024-11-20 10:32 | ESPR_ITS ---
<Statement entered by Wilber Beasley MD - 11/20/24 16:05> Patient seen and assessed in hospital bed denies having any concerning symptoms; however, apparently had difficulty sleeping overnight with some audio and visual hallucinations; however, at this time patient other than anxiety has a pretty low CIWA score of 8. Will order gabapentin and cyclobenzaprine for back pain reported in continue IV antibiotics for GPC bacteremia. Infectious disease consulted regarding patient's GPC, likely contaminant but ordered echo to rule out endocarditis as well. Physical therapy will also be ordered to assess for patient's ambulation. Will continue monitor patient and expect discharge within the next 24 hours if blood cultures are negative and patient CIWA score remains low. I have personally seen and examined the patient. I agree with the resident's assessment and plan as documented below. Wilber Beasley DO PGY-2 Internal Medicine - [facility] Documentation for date of: 11/20/24 Subjective Subjective Interval history: Patient seen at bedside. No acute overnight events. Patient is complaining of ongoing abdominal and neck/shoulder pain. Tolerating meals, no nausea/vomiting. Endorising hallucinations (auditory and visual) particularly at night. CIWA scores in mild range today. Decreased chlordiazepoxide BID for ongoing withdrawal sx. Patient's blood cultures grew GPC from 11/17, staph appearing from both sets but only 1 bottle each. Repeated BCx and started patient on IV vancomycin 11/19. Infectious disease consulted 11/20 and echocardiogram ordered to rule out endocarditis. Will continue monitoring the patient closely and wait for blood culture to result. Physical therapy to assess for patient's ambulation. Exam Vital Signs Temp Pulse Resp BP Pulse Ox O2 Del Method 98.2 F 57 L 16 93/60 98 Room Air 11/20/24 08:00 11/20/24 08:00 11/20/24 08:00 11/20/24 08:00 11/20/24 08:00 11/19/24 16:00 Narrative Exam General: No acute distress, well nourished, AAO x3, mild tremors whole body Eye: PERRL, EOMI, normal conjunctiva, no scleral icterus HENT: Normocephalic, atraumatic, hearing intact to conversation at normal volume, moist oral mucosa Neck: Supple, non-tender, no JVD, no lymphadenopathy Lungs: Non-labored respirations, symmetric chest rise, Clear to auscultate bilaterally, No wheezing, rhonchi, crackles Heart: Peripheral pulses intact bilaterally, Regular Rate and Rhythm. Abdomen: Soft, non-distended, no palpable masses, tenderness in all 4 quadrants on palpation. Musculoskeletal: Tenderness to palpation over the vertebral bodies from thoracic to lumbar spine. Normal range of motion and strength, No cyanosis or edema, No visible joint swelling Skin: Skin is warm, dry, maculopapular rash in both forearms. Psychiatric: Cooperative, appropriate mood and affect, Awake and alert, not agitated Neuro: Cranial nerves II-XII grossly intact. Strength 5/5 throughout. Sensations intact to light touch. Objective Labs 11/19/24 04:34 11/19/24 04:34 Labs: Laboratory Results - last 24 hr 11/20/24 04:15 WBC Cancelled RBC Cancelled Hgb Cancelled Hct Cancelled MCV Cancelled MCH Cancelled MCHC Cancelled RDW Std Deviation Cancelled Plt Count Cancelled Neut % (Auto) Cancelled Lymph % (Auto) Cancelled [place] % (Auto) Cancelled Eos % (Auto) Cancelled Baso % (Auto) Cancelled Neut # (Auto) Cancelled Lymph # (Auto) Cancelled [place] # (Auto) Cancelled Eos # (Auto) Cancelled Baso # (Auto) Cancelled Immature Gran # (Auto) Cancelled Absolute Nucleated RBC Cancelled Immature Gran % Cancelled Nucleated RBC % Cancelled Magnesium 2.0 Vancomycin Trough 18.4 H Quality Measures Quality Measures VTE prophylaxis (SCds) Assessment & Plan Assessment Current Active Medications: Generic Name Dose Route Start Last Admin Trade Name Waldo PRN Reason Stop Dose Admin Acetaminophen 650 mg 11/17/24 13:43 11/19/24 01:18 Acetaminophen 325 Mg Tablet PO 12/17/24 13:42 650 mg Q6H PRN Administration PAIN OR FEVER > 101 Protocol Bisacodyl 10 mg 11/17/24 13:37 Bisacodyl 5 Mg Tabec PO 12/17/24 13:36 QDAY PRN CONSTIPATION Protocol Chlordiazepoxide HCl 25 mg 11/20/24 09:00 11/20/24 09:07 Chlordiazepoxide Hcl 25 Mg Capsule PO 11/25/24 08:59 25 mg BID APOORVA Administration Cyclobenzaprine HCl 10 mg 11/19/24 14:05 11/19/24 21:57 Cyclobenzaprine 5 Mg Tablet PO 12/19/24 14:04 10 mg BID PRN Administration MUSCLE SPASMS Dextrose 25 ml 11/17/24 16:01 Dextrose 50%-Water Inj 50 Ml Syringe IV 12/17/24 16:00 Q15MIN PRN BG 50-70 responsive npo pt Dextrose 50 ml 11/17/24 16:01 Dextrose 50%-Water Inj 50 Ml Syringe IV 12/17/24 16:00 Q15MIN PRN BG <50 OR BG <70 & pt unresponsive Diazepam 10 mg 11/19/24 17:00 11/19/24 17:18 Diazepam Inj 5 Mg/Ml Vial 2 Ml IVP 11/23/24 13:55 10 mg Q2H PRN Administration CIWA SCORE 20-25 Diazepam 2.5 mg 11/19/24 17:00 Diazepam Inj 5 Mg/Ml Vial 2 Ml IVP 11/23/24 13:55 Q2H PRN CIWA SCORE 8-13 Diazepam 5 mg 11/19/24 17:00 11/19/24 19:32 Diazepam Inj 5 Mg/Ml Vial 2 Ml IVP 11/23/24 13:55 5 mg Q2H PRN Administration CIWA SCORE 14-19 Folic Acid 1 mg 11/20/24 09:00 11/20/24 09:07 Folic Acid 1 Mg Tablet PO 12/20/24 08:59 1 mg QDAY APOORVA Administration Gabapentin 100 mg 11/18/24 14:45 11/20/24 09:07 Gabapentin 100 Mg Capsule PO 12/18/24 14:44 100 mg QDAY APOORVA Administration Glucagon 1 mg 11/17/24 16:01 Glucagon Inj 1 Mg Vial IM Q15MIN PRN BG <70, and no IV access Vancomycin/Sodium Chloride 200 mls @ 120 mls/hr 11/19/24 08:45 11/20/24 06:16 Vancomycin/Ns 1 Gm Ivpb IV 11/26/24 08:44 120 mls/hr Q8HR APOORVA Administration Protocol Lorazepam 1 mg 11/17/24 14:19 11/17/24 22:16 Lorazepam 0.5 Mg Tablet PO 11/22/24 14:18 1 mg Q8HR PRN Administration ALCOHOL WITHDRAWAL Melatonin 6 mg 11/19/24 21:00 11/19/24 21:53 Melatonin 3 Mg Tablet PO 12/19/24 20:59 6 mg HS APOORVA Administration Morphine Sulfate 1 mg 11/19/24 08:43 11/19/24 13:18 Morphine Sulf Inj 4 Mg/Ml Vial IVP 1 mg Q4HR PRN Administration Pain 7-10 Pantoprazole Sodium 40 mg 11/18/24 09:00 11/20/24 09:08 Pantoprazole 40 Mg Tablet PO 12/18/24 08:59 40 mg BID APOORVA Administration Pharmacy Consult 1 each 11/19/24 09:00 Vancomycin Pharmacy To Dose 1 Each Each IV 12/19/24 08:59 QDAY PRN RX Prochlorperazine Maleate 5 mg 11/19/24 10:00 Prochlorperazine Maleate 5 Mg Tablet PO 12/19/24 09:59 Q6HR PRN NAUSEA OR VOMITING Sennosides 1 tab 11/18/24 09:00 11/20/24 09:07 Senna Tablet PO 12/18/24 08:59 1 tab QDAY APOORVA Administration Protocol Thiamine HCl 100 mg 11/20/24 09:00 11/20/24 09:07 Thiamine 100 Mg Tablet PO 12/20/24 08:59 100 mg QDAY APOORVA Administration Zinc Acetate/Diphenhydramine 0 gm 11/17/24 18:27 11/18/24 05:48 Diphenhydramine/Zn Acet 2% Cr 30 Gm Tube TOP 12/17/24 18:26 1 applicatio Q6HR PRN Administration RASH Plan 29-year-old male with alcohol use disorder and cirrhosis admitted for severe alcohol withdrawal after developing symptoms in the ED post-psychiatric clearance, requiring ICU upgrade for CIWA score of 21. Patient has been downgraded to telemetry on 11/18/2024 #Alcohol withdrawal #Alcohol use disorder First CIWA on admission: 26 at 12:43 on 11/17/2024, with tremors, nausea, severe anxiety, restlessness, headache, tactile hallucination. Last drink was ~40 ounces of beer on 11/16 at noon and EtOH leel of 394 on ED admission. Withdrawl s/s started 17hrs after ED admission Hepatitis likely due to alcohol VS drug/toxin, autoimmune, chronic inflammation, steatohepatitis, viral infection and traumatic 11/19: CIWA ranging from 2-24 Plan: -Continue CIWA protocol. Diazepam prn for symptom control. -Decreased Chlordiazepoxide 25 mg BID -Thiamine 100mg qd prior to glucose administration to prevent Wernicke?s encephalopathy -Folic acid 1mg qd for nutritional support -Hypoglycemia protocol for increased risk of inadequate nutiritional intake and underlying hepatic impairment. #?GPC Bacteremia Patient's blood cultures grew GPC from 11/17, staph appearing from both sets but only 1 bottle each. Patients vitals stable, No WBC elevation Plan -ID consulted 11/20 -Repeated BCx and started patient on IV vancomycin 11/19. -Will continue monitoring the patient closely and wait for blood culture to result. #Hepatitis #History of esophageal varices (Grade I) #History of cirrhosis -Hepatitis likely due to alcohol VS drug/toxin, autoimmune, chronic inflammation, steatohepatitis, viral infection and traumatic - CT abd/pelvis 09/02/2024: Primary hepatocellular disease versus cirrhosis. - EGD 11/02/2024: Grade I esophageal varices. Plan: -On CIWA protocol - Monitor for signs of decompensated liver disease (worsening LFTs, ascites, encephalopathy) #GI bleed, ruled out #Anemia -One episode of hematemesis. -On admission, Hgb: 10.7 Plan: -GI consulted, Recommendation appreciated -Monitor H&H -IV pantoprazole bid -Discontinued Enoxaparin for DVT prophylaxis. - Consider iron studies, B12, and folate levels if hemoglobin trends downward. - Transfuse if Hgb < 7 (current Hgb 11.4) or symptomatic. #R Knee pain R Knee XR 11/20: no fractures Plan - PRN analgesia #Generalized abdominal pain -Patient tender in all 4 quadrants. -Likely due to alcohol withdrawal. -CT abd/pelvis (11/17/2024): Liver is irregular in contour, Thickening of the gastric mucosa. Cholelithiasis, no gallbladder wall thickening.Negative for pancreatitis. No renal or ureteral calculi, no hydronephrosis No bowel obstruction or diverticulitis Normal appendix, Bladder intact, Osseous structures intact. Plan: -Gabapentin 100 mg PO TID -Acetaminphen prn #Sinus Bradycardia Likely medication induced from precede and lorazepam -on Diazepam prn per CIWA. #Dermatitis -allergic contact dermatitis vs irritant contact dermatitis -Multiple maculopapular lesions on forearms and left neck Plan: -Topical Benadryl prn Health Maintenance Disposition: MedSurg Diet: Regular diet GI prophylaxis: Pantoprazole 40mg po bid DVT prophylaxis: SCD Code:FULL Case discussed with my attending Dr. Reza, and senior resident, Dr. Gale Purdy MD PGY-1 Attending Provider Attestation/Addendum I reviewed labs, imaging, EKG, home medications and prior available records. Face to face evaluation was performed by me. I have personally examined the patient and discussed assessment and plan with the IM team. I reviewed the resident note and agree with the plan with exceptions as below. Alcohol abuse Alcohol withdrawal Prolonged QTc Gram-positive bacteremia Insomnia Continue CIWA protocol Librium taper Blood cultures show gram-positive cocci. Continue IV vancomycin. Repeat blood culture: Negative to date Consulted ID Ordered echocardiogram Management of pain as needed. Ordered IV morphine Avoid QTc prolonging agents Replete electrolytes as needed PT evaluation Mental health evaluation given the reported suicidal ideation, prior to discharge
[2024-11-20] MEDS: MORPHINE SULF INJ 4 MG/ML VIAL 1 MG IVP ×2 (11:33→15:21)
--- NOTE | 2024-11-20 11:34 | PC.SS ---
Update: Patient has been transitioned from ICU to Med/Surg today.
--- NOTE | 2024-11-20 13:49 | XR_ITS ---
Examination: Knee, right, 3 views Technique: Knee AP, lateral, oblique 3 views Date and time of exam: November 20, 2024, 1528 hours INDICATIONS: Patient fell 4 days ago with injury to the knee, knee pain FINDINGS: No fracture or dislocation. No foreign body IMPRESSION: No fracture or dislocation
[2024-11-20] MEDS: ENOXAPARIN SOD INJ 40 MG/0.4 ML SYRINGE SC (14:10)
--- NOTE | 2024-11-20 14:30 | PC.SS ---
Rounding Note: Patient receiving IV antibiotics. Blood cultures pending. Mental health evaluation pending medical clearance.
--- NOTE | 2024-11-20 14:31 | PC.NURSE ---
Informed by Cuate MADERA at 2pm MD meeting, pt. was suicidal when came into ER. SS in ER did a pysch eval on pt., pt. was going through withdrawls, so was not mediacally cleared. Pt. transferred to [facility] this AM. We will be putting pt. on suicide precautions with a 1:1 sitter.
[2024-11-20] MEDS: DIAZEPAM INJ 5 MG/ML VIAL 2 ML 2.5 MG IVP (18:11)
--- NOTE | 2024-11-20 20:39 | ESPR_ITS ---
Documentation for date of: 11/20/24 Subjective Subjective Interval history: Still having some hallucinations Blood cultures positive GPC On on IV vancomycin Exam Vital Signs Temp Pulse Resp BP Pulse Ox O2 Del Method 97.9 F 78 17 114/71 95 Room Air 11/20/24 20:00 11/20/24 20:00 11/20/24 20:00 11/20/24 20:00 11/20/24 20:00 11/20/24 20:00 Objective Labs 11/19/24 04:34 11/19/24 04:34 Labs: Laboratory Results - last 24 hr 11/20/24 04:15 WBC Cancelled RBC Cancelled Hgb Cancelled Hct Cancelled MCV Cancelled MCH Cancelled MCHC Cancelled RDW Std Deviation Cancelled Plt Count Cancelled Neut % (Auto) Cancelled Lymph % (Auto) Cancelled [place] % (Auto) Cancelled Eos % (Auto) Cancelled Baso % (Auto) Cancelled Neut # (Auto) Cancelled Lymph # (Auto) Cancelled [place] # (Auto) Cancelled Eos # (Auto) Cancelled Baso # (Auto) Cancelled Immature Gran # (Auto) Cancelled Absolute Nucleated RBC Cancelled Immature Gran % Cancelled Nucleated RBC % Cancelled Magnesium 2.0 Vancomycin Trough 18.4 H Impressions Impression: Acute alcohol withdrawal on chlordiazepoxide GPC bacteremia on vancomycin IV Hepatic encephalopathy improving Continue current management Assessment & Plan A&P Narrative # Acute alcohol withdrawal symptoms Being treated with diazepam phenobarb # Chronic liver disease secondary to alcohol # History of upper GI bleed requiring dilatation of the esophageal varices # Mucosal oozing of blood in the setting of hypertensive portal gastropathy Plan no need for any invasive GI workup at the moment I agree with the current management will follow the patient Thank you very much for the opportunity to participate in the care of this patient Time Spent With Patient Time: Total time spent is greater than 50% in coordination of care (as documented) at patient's floor/unit and/or counseling patient:
[2024-11-20] MEDS: MORPHINE SULF INJ 4 MG/ML VIAL 2 MG IV (21:45)
[2024-11-20] MEDS: MELATONIN 3 MG TABLET 6 MG PO (21:46)
[2024-11-21] VITALS (10 sets, daily range): BP systolic 99–140; BP diastolic 70–97; PULSE 62–97; RESP 16–18; TEMP 36.2–36.8; O2SAT 95–98; BMI 25.9; BMI 26.1
[2024-11-21] MEDS: VANCOMYCIN/NS 1 GM IVPB 200 ML IV (05:26)
[2024-11-21] MEDS: GABAPENTIN 100 MG CAPSULE PO ×3 (05:26→22:21)
--- NOTE | 2024-11-21 05:38 | PC.NURSE ---
DR DAVIS NOTIFIED OF PT COMPLAINING OF 10/10 ABDOMINAL PAIN AND REQUESTING MORPHINE HOWEVER PTS BP 99/[address] DAVIS STATES TO ORDER 0.5MG MORPHINE IVP X 1
[2024-11-21] MEDS: MORPHINE SULF INJ 4 MG/ML VIAL 0.5 MG IVP (05:49)
[2024-11-21 05:59] LABS: Basophils # (Auto) 0.0 Thou/mm3 (0.0-0.2); Basophils % (Auto) 1 % (0-2.5); Eosinophils # (Auto) 0.1 Thou/mm3 (0.0-0.5); Eosinophils % (Auto) 4 % (0-10); Hematocrit 33.8 % (41.0-53.0); Hemoglobin 11.1 g/dL (13.5-16.0); Immature Granulocytes Auto 0.00 Thou/mm3 (0.00-0.00); Lymphocytes # (Auto) 1.5 Thou/mm3 (1.0-4.8); Lymphocytes % (Auto) 39 % (10-50); Mean Corpuscular HGB Conc 32.8 g/dl (31.0-37.0); Mean Corpuscular Hemoglobin 30.2 pg (25.0-35.0); Mean Corpuscular Volume 92 fL (80-100); Monocytes # (Auto) 0.6 Thou/mm3 (0.0-0.8); Monocytes % (Auto) 17 % (0-12); Neutrophils # (Auto) 1.5 Thou/mm3 (1.8-7.7); Neutrophils % (Auto) 40 % (37-80); Nucleated Red Blood Cell # 0.00 Thou/mm3 (0.00-0.00); Nucleated Red Blood Cell % 0 /100 WBC (0); Platelet Count 227 Thou/mm3 (140-440); RDW Standard Deviation 58.2 fL (35.1-43.9); Red Blood Count 3.67 Miln/mm3 (4.50-5.90); White Blood Count 3.8 Thou/mm3 (3.8-10.6)
[2024-11-21 06:17] LABS: Alanine Aminotransferase 40 U/L (10-49); Albumin, Serum 3.8 gm/dL (3.5-5.0); Albumin/Globulin Ratio 1.7 (1.2-2.2); Alkaline Phosphatase 148 U/L (46-116); Anion Gap 10 (7-16); Aspartate Amino Transferase 60 U/L (0-34); BUN/Creatinine Ratio 6 Ratio (12-20); Bilirubin,Total 0.4 mg/dL (0.3-1.2); Blood Urea Nitrogen < 5 mg/dL (9-23); Calcium 8.6 mg/dL (8.3-10.6); Calcium (Corrected) 8.8 mg/dL (8.5-10.1); Carbon Dioxide 27.2 mMol/L (20.0-31.0); Chloride 104 mMol/L (98-107); Creatinine (Component) 0.8 mg/dL (0.6-1.3); Estimated Creatinine Clearance 107.1 mL/min (>60); Globulin 2.3 gm/dL (2.3-3.5); Glucose 101 mg/dL (74-106); Magnesium 1.8 mg/dL (1.6-2.6); Osmolality,Calculated 278 (275-295); Phosphorous 4.2 mg/dL (2.4-5.1); Potassium 3.8 mMol/L (3.4-5.1); Sodium 141 mMol/L (136-145); Total Protein 6.1 gm/dL (5.7-8.2); eGFR > 60 See Note
--- NOTE | 2024-11-21 08:10 | PC.NURSE ---
Pt has been complaining of nonstop 10/[address] Purdy and made aware. Pt has scheduled pain medication. will come by to see patient.
[2024-11-21] MEDS: FOLIC ACID 1 MG TABLET PO (08:27)
[2024-11-21] MEDS: PANTOPRAZOLE 40 MG TABLET PO ×2 (08:27→20:38)
[2024-11-21] MEDS: THIAMINE 100 MG TABLET PO (08:27)
[2024-11-21] MEDS: ENOXAPARIN SOD INJ 40 MG/0.4 ML SYRINGE SC (08:28)
[2024-11-21] MEDS: POLYETHYLENE GLYCOL 17 GM PACKET PO (08:28)
--- NOTE | 2024-11-21 08:29 | PC.SS ---
[employer] REPRESENTATIVE informed bedside nurse to contact [employer]PRESENTATIVE once patient has been medically cleared in order to initiate mental health evaluation prior to the patient's discharge. Patient potential discharge for today.
--- NOTE | 2024-11-21 11:44 | ESPR_ITS ---
Documentation for date of: 11/21/24 Subjective Subjective Interval history: Patient seen at bedside. No acute overnight events. Patient is complaining of ongoing abdominal and neck/shoulder pain. Required Morphine IV 2mg x1 and 0.5mg x1. Tolerating meals, no nausea/vomiting. CIWA ranging from 0-1. Chlordiazepoxide 10mg x1 for ongoing withdrawal sx. Patient's blood cultures grew GPC from 11/17, staph appearing from both sets but only 1 bottle each. Repeated BCx 11/19 neg and started patient on IV vancomycin. Infectious disease consulted 11/20 and echocardiogram ordered to rule out endocarditis. Echocardiogram taken however pending read. Physical therapy recommended discharge with home health. Exam Vital Signs Temp Pulse Resp BP Pulse Ox O2 Del Method 97.8 F 97 18 108/70 98 Room Air 11/21/24 08:16 11/21/24 08:16 11/21/24 08:16 11/21/24 08:16 11/21/24 08:16 11/21/24 08:16 Narrative Exam General: No acute distress, well nourished, AAO x3, mild tremors hands Eye: PERRL, EOMI, normal conjunctiva, no scleral icterus HENT: Normocephalic, atraumatic, hearing intact to conversation at normal volume, moist oral mucosa Neck: Supple, non-tender, no JVD, no lymphadenopathy Lungs: Non-labored respirations, symmetric chest rise, Clear to auscultate bilaterally, No wheezing, rhonchi, crackles Heart: Peripheral pulses intact bilaterally, Regular Rate and Rhythm. Abdomen: Soft, non-distended, no palpable masses, tenderness in all 4 quadrants on palpation. Musculoskeletal: Tenderness to palpation over the vertebral bodies from thoracic to lumbar spine. Normal range of motion and strength, No cyanosis or edema, No visible joint swelling Skin: Skin is warm, dry, maculopapular rash in both forearms. Psychiatric: Cooperative, appropriate mood and affect, Awake and alert, not agitated Neuro: Cranial nerves II-XII grossly intact. Strength 5/5 throughout. Sensations intact to light touch. Objective Labs 11/21/24 05:21 11/21/24 05:21 Labs: Laboratory Results - last 24 hr 11/21/24 05:21 WBC 3.8 RBC 3.67 L Hgb 11.1 L Hct 33.8 L MCV 92 MCH 30.2 MCHC 32.8 RDW Std Deviation 58.2 H Plt Count 227 D Neut % (Auto) 40 Lymph % (Auto) 39 [place] % (Auto) 17 H Eos % (Auto) 4 Baso % (Auto) 1 Neut # (Auto) 1.5 L Lymph # (Auto) 1.5 [place] # (Auto) 0.6 Eos # (Auto) 0.1 Baso # (Auto) 0.0 Immature Gran # (Auto) 0.00 Absolute Nucleated RBC 0.00 Immature Gran % 0 Nucleated RBC % 0 Sodium 141 Potassium 3.8 Chloride 104 Carbon Dioxide 27.2 Anion Gap 10 BUN < 5 L Creatinine 0.8 Estim Creat Clear Calc 107.1 eGFR > 60 BUN/Creatinine Ratio 6 L Glucose 101 Calculated Osmolality 278 Calcium 8.6 Corrected Calcium 8.8 Phosphorus 4.2 Magnesium 1.8 Total Bilirubin 0.4 AST 60 H ALT 40 Alkaline Phosphatase 148 H Total Protein 6.1 Albumin 3.8 D Globulin 2.3 Albumin/Globulin Ratio 1.7 Quality Measures Quality Measures VTE prophylaxis (SCds) Assessment & Plan Assessment Current Active Medications: Generic Name Dose Route Start Last Admin Trade Name Freq PRN Reason Stop Dose Admin Acetaminophen 650 mg 11/17/24 13:43 11/19/24 01:18 Acetaminophen 325 Mg Tablet PO 12/17/24 13:42 650 mg Q6H PRN Administration PAIN OR FEVER > 101 Protocol Hydrocodone Bitart/Acetaminophen 1 tab 11/21/24 11:06 Hydrocodone/Apap 5/325 Tablet PO 11/26/24 11:05 Q6HR PRN Pain 4-6 Bisacodyl 10 mg 11/17/24 13:37 Bisacodyl 5 Mg Tabec PO 12/17/24 13:36 QDAY PRN CONSTIPATION Protocol Dextrose 25 ml 11/17/24 16:01 Dextrose 50%-Water Inj 50 Ml Syringe IV 12/17/24 16:00 Q15MIN PRN BG 50-70 responsive npo pt Dextrose 50 ml 11/17/24 16:01 Dextrose 50%-Water Inj 50 Ml Syringe IV 12/17/24 16:00 Q15MIN PRN BG <50 OR BG <70 & pt unresponsive Diazepam 10 mg 11/19/24 17:00 11/19/24 17:18 Diazepam Inj 5 Mg/Ml Vial 2 Ml IVP 11/23/24 13:55 10 mg Q2H PRN Administration CIWA SCORE 20-25 Diazepam 2.5 mg 11/19/24 17:00 11/20/24 18:11 Diazepam Inj 5 Mg/Ml Vial 2 Ml IVP 11/23/24 13:55 2.5 mg Q2H PRN Administration CIWA SCORE 8-13 Diazepam 5 mg 11/19/24 17:00 11/19/24 19:32 Diazepam Inj 5 Mg/Ml Vial 2 Ml IVP 11/23/24 13:55 5 mg Q2H PRN Administration CIWA SCORE 14-19 Enoxaparin Sodium 40 mg 11/20/24 12:15 11/21/24 08:28 Enoxaparin Sod Inj 40 Mg/0.4 Ml Syringe SC 12/04/24 12:14 40 mg QDAY APOORVA Administration Folic Acid 1 mg 11/20/24 09:00 11/21/24 08:27 Folic Acid 1 Mg Tablet PO 12/20/24 08:59 1 mg QDAY APOORVA Administration Gabapentin 100 mg 11/20/24 14:00 11/21/24 05:26 Gabapentin 100 Mg Capsule PO 12/20/24 13:59 100 mg TID APOORVA Administration Glucagon 1 mg 11/17/24 16:01 Glucagon Inj 1 Mg Vial IM Q15MIN PRN BG <70, and no IV access Vancomycin/Sodium Chloride 750 mg in 150 mls @ 120 mls/hr 11/21/24 14:00 Vancomycin/Ns 750 Mg Ivpb IV 11/28/24 13:59 Q8HR APOORVA Pantoprazole Sodium 40 mg 11/18/24 09:00 11/21/24 08:27 Pantoprazole 40 Mg Tablet PO 12/18/24 08:59 40 mg BID APOORVA Administration Pharmacy Consult 1 each 11/19/24 09:00 Vancomycin Pharmacy To Dose 1 Each Each IV 12/19/24 08:59 QDAY PRN RX Prochlorperazine Maleate 5 mg 11/19/24 10:00 Prochlorperazine Maleate 5 Mg Tablet PO 12/19/24 09:59 Q6HR PRN NAUSEA OR VOMITING Sennosides 1 tab 11/18/24 09:00 11/21/24 08:27 Senna Tablet PO 12/18/24 08:59 1 tab QDAY APOORVA Administration Protocol Thiamine HCl 100 mg 11/20/24 09:00 11/21/24 08:27 Thiamine 100 Mg Tablet PO 12/20/24 08:59 100 mg QDAY APOORVA Administration Zinc Acetate/Diphenhydramine 0 gm 11/17/24 18:27 11/18/24 05:48 Diphenhydramine/Zn Acet 2% Cr 30 Gm Tube TOP 12/17/24 18:26 1 applicatio Q6HR PRN Administration RASH Zolpidem Tartrate 5 mg 11/21/24 21:00 Zolpidem 5 Mg Tablet PO 12/21/24 20:59 HS APOORVA Plan 29-year-old male with alcohol use disorder and cirrhosis admitted for severe alcohol withdrawal after developing symptoms in the ED post-psychiatric clearance, requiring ICU upgrade for CIWA score of 21. Patient has been downgraded to telemetry on 11/18/2024 #Alcohol withdrawal #Alcohol use disorder First CIWA on admission: 26 at 12:43 on 11/17/2024, with tremors, nausea, severe anxiety, restlessness, headache, tactile hallucination. Last drink was ~40 ounces of beer on 11/16 at noon and EtOH leel of 394 on ED admission. Withdrawl s/s started 17hrs after ED admission Hepatitis likely due to alcohol VS drug/toxin, autoimmune, chronic inflammation, steatohepatitis, viral infection and traumatic 11/19: CIWA ranging from 2-24 Plan: -Continue CIWA protocol. Diazepam prn for symptom control. -Chlordiazepoxide 10mg x1 -Thiamine 100mg qd prior to glucose administration to prevent Wernicke?s encephalopathy -Folic acid 1mg qd for nutritional support -Hypoglycemia protocol for increased risk of inadequate nutiritional intake and underlying hepatic impairment. #?GPC Bacteremia Patient's blood cultures grew GPC from 11/17, staph appearing from both sets but only 1 bottle each. Patients vitals stable, No WBC elevation Repeat BCx 11/19 neg after 48hrs Plan -ID consulted 11/20, see recs -IV vancomycin (11/19- #Insomnia -Ambien 5mg qHS #Back pain Patient feel from incl[place] and hurt back prior to ED presentation Spinal tenderness T+L spine -Lutz 5 q6h PRN -PT consult #Hepatitis #History of esophageal varices (Grade I) #History of cirrhosis -Hepatitis likely due to alcohol VS drug/toxin, autoimmune, chronic inflammation, steatohepatitis, viral infection and traumatic - CT abd/pelvis 09/02/2024: Primary hepatocellular disease versus cirrhosis. - EGD 11/02/2024: Grade I esophageal varices. Plan: -On [facility] protocol - Monitor for signs of decompensated liver disease (worsening LFTs, ascites, encephalopathy) #GI bleed, ruled out #Anemia -One episode of hematemesis. -On admission, Hgb: 10.7 Plan: -GI consulted, Recommendation appreciated -IV pantoprazole bid -Consider iron studies, B12, and folate levels if hemoglobin trends downward. -Transfuse if Hgb < 7 (current Hgb 11.4) or symptomatic. #R Knee pain R Knee XR 11/20: no fractures Plan - PRN analgesia #Generalized abdominal pain -Patient tender in all 4 quadrants. -Likely due to alcohol withdrawal. -CT abd/pelvis (11/17/2024): Liver is irregular in contour, Thickening of the gastric mucosa. Cholelithiasis, no gallbladder wall thickening.Negative for pancreatitis. No renal or ureteral calculi, no hydronephrosis No bowel obstruction or diverticulitis Normal appendix, Bladder intact, Osseous structures intact. Plan: -Gabapentin 100 mg PO TID -Acetaminophen prn #Dermatitis -allergic contact dermatitis vs irritant contact dermatitis -Multiple maculopapular lesions on forearms and left neck Plan: -Topical Benadryl prn #Sinus Bradycardia, resolved Health Maintenance Disposition: MedSurg Diet: Regular diet GI prophylaxis: Pantoprazole 40mg po bid DVT prophylaxis: SCD Code:FULL Case discussed with my attending Dr. Reza, and senior resident, Dr. Gale Purdy MD PGY-1 Attending Provider Attestation/Addendum I reviewed labs, imaging, EKG, home medications and prior available records. Face to face evaluation was performed by me. I have personally examined the patient and discussed assessment and plan with the IM team. I reviewed the resident note and agree with the plan with exceptions as below. Alcohol abuse Alcohol withdrawal Prolonged QTc Gram-positive bacteremia Insomnia Continue [facility] protocol Librium taper Blood cultures show gram-positive cocci. Continue IV vancomycin. Repeat blood culture: Negative to date Consulted ID Ordered echocardiogram Management of pain as needed. Ordered IV morphine. Added muscle relaxant Avoid QTc prolonging agents Replete electrolytes as needed PT evaluation Mental health evaluation given the reported suicidal ideation, prior to discharge
[2024-11-21] MEDS: HYDROcodone/APAP 5/325 TABLET 1 TAB PO ×2 (13:29→19:57)
--- NOTE | 2024-11-21 13:42 | ESPR_ITS ---
Subjective Subjective Interval history: bc pos but looks like its a coag neg. those are most often contaminants listed as 8mins different from other pos. vanco is ok but likely over treatment. Exam Vital Signs Temp Pulse Resp BP Pulse Ox O2 Del Method 97.1 F 72 16 119/82 98 Room Air 11/21/24 13:01 11/21/24 13:01 11/21/24 13:01 11/21/24 13:01 11/21/24 13:01 11/21/24 13:01 Narrative Exam some abs sx but had been on etoh. high levels noted. works in [employer]. Objective - Internal Medicine Labs 11/21/24 05:21 11/21/24 05:21 Labs: Laboratory Results - last 24 hr 11/21/24 05:21 WBC 3.8 RBC 3.67 L Hgb 11.1 L Hct 33.8 L MCV 92 MCH 30.2 MCHC 32.8 RDW Std Deviation 58.2 H Plt Count 227 D Neut % (Auto) 40 Lymph % (Auto) 39 [place] % (Auto) 17 H Eos % (Auto) 4 Baso % (Auto) 1 Neut # (Auto) 1.5 L Lymph # (Auto) 1.5 [place] # (Auto) 0.6 Eos # (Auto) 0.1 Baso # (Auto) 0.0 Immature Gran # (Auto) 0.00 Absolute Nucleated RBC 0.00 Immature Gran % 0 Nucleated RBC % 0 Sodium 141 Potassium 3.8 Chloride 104 Carbon Dioxide 27.2 Anion Gap 10 BUN < 5 L Creatinine 0.8 Estim Creat Clear Calc 107.1 eGFR > 60 BUN/Creatinine Ratio 6 L Glucose 101 Calculated Osmolality 278 Calcium 8.6 Corrected Calcium 8.8 Phosphorus 4.2 Magnesium 1.8 Total Bilirubin 0.4 AST 60 H ALT 40 Alkaline Phosphatase 148 H Total Protein 6.1 Albumin 3.8 D Globulin 2.3 Albumin/Globulin Ratio 1.7 Assessment & Plan A&P Narrative coag neg staph in in ED c/o fever cirrhosis with normal inr and plts but low counts. hx of heavy etoh use noted role of abx unclear to me. ok to get a trans thoracic echo and if neg then stop and re evaluate rx we will see briefly tuesday am he wants something for anxiety. but may have been the reason he was drinking etoh Time Spent With Patient Time: Total time spent is greater than 50% in coordination of care (as documented) at patient's floor/unit and/or counseling patient:
--- NOTE | 2024-11-21 13:45 | ESCONSULT_ITS ---
<Statement entered by Vladimir Gates MD - 11/23/24 08:40> pt seen with resident. all findings confirmed. see additional notes for details HPI Data of Consult Requesting Physician: Tc Reza MD Admitting Provider: Dieudonne Purdy MD Attending Provider: Tc Reza MD Primary Care Provider: Balwinder Humphrey MD Consult Narrative Reason for consult: Bacteremia History of present illness: Patient is a 29-year-old male with past medical history significant for Alcohol use in withdrawal, cirrhosis, esophageal varices who came into the ER on 11/16 for further evaluation for suicidal ideation and alcohol withdrawal. Patient states that he drinks heavy alcohol and drink 2 to 340 ounce beers in the last week. Patient has been on CIWA protocol since admission. ID was consulted for further management of patient's bacteremia which grew Staphylococcus hominis in 2 of 2 bottles repeat blood cultures have been negative the last 48 hours. ID was consulted for further management of patient's bacteremia. Patient continues to have lower back pain and is anxious. Past medical history: As mentioned above Past surgical history: None Allergies: NKDA Immunizations: Unknown when last tetanus shot was. Patient does not take flu shots annually, has had 1 COVID-vaccine. Family history: Noncontributory Social history: Patient denies any tobacco or other illicit drug use. Patient does drink alcohol daily. cc:: cc: Tc Reza MD Review of Systems Review of Systems Systems Reviewed: All systems reviewed, normal except as documented Exam Vital Signs Temp Pulse Resp BP Pulse Ox O2 Del Method 97.1 F 72 16 119/82 98 Room Air 11/21/24 13:01 11/21/24 13:01 11/21/24 13:01 11/21/24 13:01 11/21/24 13:01 11/21/24 13:01 Narrative Exam General Appearance: Pt in in mild distress slightly agitated with mild tremors seen bilaterally. HEENT: NC/AT, no scleral icterus, no conjunctival pallor, MMM Lungs: CTAB, no wheezes or crackles appreciated CVS: RRR, S1/S2 heard, no murmurs or rubs appreciated ABD: Soft, non-tender, non-distended, BS + in all 4 quadrants EXT: no deformity/edema/lesions/cyanosis/clubbing, radial pulses 2+ BL, DP pulses 2 + BL SKIN: Skin exam normal without any rashes. Neuro: A&O x 3. No gross neurological deficits. Motor and sensory grossly intact in B/L UL and LL. Psych: Appropriate mood and affect Results Labs 11/23/24 05:00 11/23/24 05:00 Labs: Short CBC 11/21/24 Range/Units 05:21 WBC 3.8 (3.8-10.6) Thou/mm3 Hgb 11.1 L (13.5-16.0) g/dL Hct 33.8 L (41.0-53.0) % Plt Count 227 D (140-440) Thou/mm3 BMP 11/21/24 05:21 Sodium 141 Potassium 3.8 Chloride 104 Carbon Dioxide 27.2 BUN < 5 L Creatinine 0.8 Glucose 101 Calcium 8.6 Liver Function 11/21/24 Range/Units 05:21 Total Bilirubin 0.4 (0.3-1.2) mg/dL AST 60 H (0-34) U/L ALT 40 (10-49) U/L Alkaline Phosphatase 148 H (46-116) U/L Albumin 3.8 D (3.5-5.0) gm/dL Quality Measures Quality Measures VTE prophylaxis (SCds) Medications Home Medications and Allergies Allergies Allergy/AdvReac Type Severity Reaction Status Date / Time No Known Allergies Allergy Verified 11/16/24 16:33 Visit Medications Acetaminophen (Acetaminophen 325 Mg Tablet) 650 mg PO Q6H PRN; Protocol PRN Reason: PAIN OR FEVER > 101 Stop: 12/17/24 13:42 Last Admin: 11/19/24 01:18 Dose: 650 mg Hydrocodone Bitart/Acetaminophen (Hydrocodone/Apap 5/325 Tablet) 1 tab PO Q6HR PRN PRN Reason: Pain 4-6 Stop: 11/26/24 11:05 Last Admin: 11/21/24 13:29 Dose: 1 tab Bisacodyl (Bisacodyl 5 Mg Tabec) 10 mg PO QDAY PRN; Protocol PRN Reason: CONSTIPATION Stop: 12/17/24 13:36 Dextrose (Dextrose 50%-Water Inj 50 Ml Syringe) 25 ml IV Q15MIN PRN PRN Reason: BG 50-70 responsive npo pt Stop: 12/17/24 16:00 Dextrose (Dextrose 50%-Water Inj 50 Ml Syringe) 50 ml IV Q15MIN PRN PRN Reason: BG <50 OR BG <70 & pt unresponsive Stop: 12/17/24 16:00 Diazepam (Diazepam Inj 5 Mg/Ml Vial 2 Ml) 10 mg IVP Q2H PRN PRN Reason: CIWA SCORE 20-25 Stop: 11/23/24 13:55 Last Admin: 11/19/24 17:18 Dose: 10 mg Diazepam (Diazepam Inj 5 Mg/Ml Vial 2 Ml) 2.5 mg IVP Q2H PRN PRN Reason: CIWA SCORE 8-13 Stop: 11/23/24 13:55 Last Admin: 11/20/24 18:11 Dose: 2.5 mg Diazepam (Diazepam Inj 5 Mg/Ml Vial 2 Ml) 5 mg IVP Q2H PRN PRN Reason: CIWA SCORE 14-19 Stop: 11/23/24 13:55 Last Admin: 11/19/24 19:32 Dose: 5 mg Enoxaparin Sodium (Enoxaparin Sod Inj 40 Mg/0.4 Ml Syringe) 40 mg SC QDAY [facility] Stop: 12/04/24 12:14 Last Admin: 11/21/24 08:28 Dose: 40 mg Folic Acid (Folic Acid 1 Mg Tablet) 1 mg PO QDAY [facility] Stop: 12/20/24 08:59 Last Admin: 11/21/24 08:27 Dose: 1 mg Gabapentin (Gabapentin 100 Mg Capsule) 100 mg PO TID [facility] Stop: 12/20/24 13:59 Last Admin: 11/21/24 13:29 Dose: 100 mg Glucagon (Glucagon Inj 1 Mg Vial) 1 mg IM Q15MIN PRN PRN Reason: BG <70, and no IV access Vancomycin/Sodium Chloride (Vancomycin/Ns 750 Mg Ivpb) 750 mg in 150 mls @ 120 mls/hr IV Q8HR [facility] Stop: 11/28/24 13:59 Pantoprazole Sodium (Pantoprazole 40 Mg Tablet) 40 mg PO BID [facility] Stop: 12/18/24 08:59 Last Admin: 11/21/24 08:27 Dose: 40 mg Pharmacy Consult (Vancomycin Pharmacy To Dose 1 Each Each) 1 each IV QDAY PRN PRN Reason: RX Stop: 12/19/24 08:59 Prochlorperazine Maleate (Prochlorperazine Maleate 5 Mg Tablet) 5 mg PO Q6HR PRN PRN Reason: NAUSEA OR VOMITING Stop: 12/19/24 09:59 Sennosides (Senna Tablet) 1 tab PO QDAY [facility]; Protocol Stop: 12/18/24 08:59 Last Admin: 11/21/24 08:27 Dose: 1 tab Thiamine HCl (Thiamine 100 Mg Tablet) 100 mg PO QDAY [facility] Stop: 12/20/24 08:59 Last Admin: 11/21/24 08:27 Dose: 100 mg Zinc Acetate/Diphenhydramine (Diphenhydramine/Zn Acet 2% Cr 30 Gm Tube) 0 gm TOP Q6HR PRN PRN Reason: RASH Stop: 12/17/24 18:26 Last Admin: 11/18/24 05:48 Dose: 1 applicatio Zolpidem Tartrate (Zolpidem 5 Mg Tablet) 5 mg PO HS [facility] Stop: 12/21/24 20:59 Discontinued Medications Acetaminophen (Acetaminophen 325 Mg Tablet) 650 mg PO X1 ONE Stop: 11/18/24 09:57 Last Admin: 11/18/24 10:12 Dose: 650 mg Chlordiazepoxide HCl (Chlordiazepoxide Hcl 25 Mg Capsule) 50 mg PO Q6HR [facility] Stop: 11/22/24 14:29 Last Admin: 11/18/24 05:27 Dose: 50 mg Chlordiazepoxide HCl (Chlordiazepoxide Hcl 25 Mg Capsule) 25 mg PO TID [facility] Stop: 11/24/24 15:44 Last Admin: 11/20/24 06:16 Dose: 25 mg Chlordiazepoxide HCl (Chlordiazepoxide Hcl 25 Mg Capsule) 25 mg PO BID [facility] Stop: 11/25/24 08:59 Last Admin: 11/20/24 21:47 Dose: 25 mg Chlordiazepoxide HCl (Chlordiazepoxide Hcl 10 Mg Capsule) 10 mg PO X1 ONE Stop: 11/21/24 11:07 Last Admin: 11/21/24 13:30 Dose: 10 mg Phenobarbital Sodium 130 mg/ (Sodium Chloride 12 ml) 0 mg IVP X1 ONE Stop: 11/17/24 14:17 Last Admin: 11/17/24 14:34 Dose: 130 mg Cyclobenzaprine HCl (Cyclobenzaprine 5 Mg Tablet) 10 mg PO BID PRN PRN Reason: MUSCLE SPASMS Stop: 12/19/24 14:04 Last Admin: 11/19/24 21:57 Dose: 10 mg Diazepam (Diazepam 5 Mg Tablet) 5 mg PO X1 ONE Stop: 11/17/24 09:05 Last Admin: 11/17/24 09:34 Dose: Not Given Diazepam (Diazepam 5 Mg Tablet) 10 mg PO X1 ONE Stop: 11/17/24 09:05 Last Admin: 11/17/24 09:31 Dose: 10 mg Diazepam (Diazepam Inj 5 Mg/Ml Vial 2 Ml) 2.5 mg IVP Q2HR PRN PRN Reason: CIWA SCORE 8-13 Stop: 11/22/24 13:36 Diazepam (Diazepam Inj 5 Mg/Ml Vial 2 Ml) 5 mg IVP Q2HR PRN PRN Reason: CIWA SCORE 14-19 Stop: 11/22/24 13:36 Diazepam (Diazepam Inj 5 Mg/Ml Vial 2 Ml) 10 mg IVP Q2HR PRN PRN Reason: CIWA SCORE 20- Stop: 11/22/24 13:36 Last Admin: 11/17/24 13:53 Dose: 10 mg Diazepam (Diazepam Inj 5 Mg/Ml Vial 2 Ml) 10 mg IVP Q2HR PRN PRN Reason: CIWA SCORE 20- Stop: 11/22/24 13:36 Diazepam (Diazepam Inj 5 Mg/Ml Vial 2 Ml) 2.5 mg IVP Q2HR PRN PRN Reason: CIWA SCORE 8-13 Stop: 11/22/24 13:36 Last Admin: 11/18/24 12:20 Dose: 2.5 mg Diazepam (Diazepam Inj 5 Mg/Ml Vial 2 Ml) 5 mg IVP Q2HR PRN PRN Reason: CIWA SCORE 14-19 Stop: 11/22/24 13:36 Last Admin: 11/17/24 21:21 Dose: 5 mg Diazepam (Diazepam Inj 5 Mg/Ml Vial 2 Ml) 10 mg IVP Q4H PRN PRN Reason: CIWA SCORE 20- Stop: 11/22/24 16:12 Last Admin: 11/19/24 15:13 Dose: 10 mg Diazepam (Diazepam Inj 5 Mg/Ml Vial 2 Ml) 2.5 mg IVP Q4HR PRN PRN Reason: CIWA SCORE 8-13 Stop: 11/22/24 16:12 Last Admin: 11/18/24 21:40 Dose: 2.5 mg Diazepam (Diazepam Inj 5 Mg/Ml Vial 2 Ml) 5 mg IVP Q4HR PRN PRN Reason: CIWA SCORE 14-19 Stop: 11/22/24 16:12 Last Admin: 11/19/24 12:24 Dose: 5 mg Enoxaparin Sodium (Enoxaparin Sod Inj 40 Mg/0.4 Ml Syringe) 40 mg SC QDAY [facility] Stop: 12/02/24 08:59 Famotidine (Famotidine 20 Mg Tablet) 20 mg PO X1 ONE Stop: 11/18/24 09:58 Last Admin: 11/18/24 10:13 Dose: 20 mg Folic Acid (Folic Acid Inj 1 Mg/0.2 Ml) 1 mg IVP QDAY [facility] Stop: 11/19/24 16:44 Last Admin: 11/19/24 08:55 Dose: 1 mg Gabapentin (Gabapentin 100 Mg Capsule) 100 mg PO QDAY [facility] Stop: 12/18/24 14:44 Last Admin: 11/20/24 09:07 Dose: 100 mg Lactated Ringer's (Lactated Ringers) 500 mls @ 125 mls/hr IV .Q4H ONE Stop: 11/17/24 15:38 Last Infusion: 11/17/24 16:59 Dose: Infused Lactated Ringer's (Lactated Ringers) 1,000 mls @ 100 mls/hr IV .Q10H [facility] Stop: 11/18/24 11:08 Last Admin: 11/18/24 02:55 Dose: 100 mls/hr Dexmedetomidine/Sodium Chloride (Precedex Ivpb) 400 mcg in 100 mls @ 3.175 mls/hr IV .Q24H PRN; Protocol PRN Reason: Per PROTOCOL Stop: 12/17/24 16:06 Last Titration: 11/18/24 06:45 Dose: 0 mcg/kg/hr, 0 mls/hr Magnesium Sulfate (Magnesium Sulfate Ivpb) 2 gm in 50 mls @ 25 mls/hr IV X1 ONE Stop: 11/17/24 18:33 Last Admin: 11/17/24 17:03 Dose: 25 mls/hr Magnesium Sulfate (Magnesium Sulfate Ivpb) 2 gm in 50 mls @ 25 mls/hr IV X1 ONE Stop: 11/18/24 04:51 Last Infusion: 11/18/24 05:10 Dose: Infused Lactated Ringer's (Lactated Ringers) 1,000 mls @ 999 mls/hr IV .Q1H1M ONE Stop: 11/18/24 09:26 Last Admin: 11/19/24 19:41 Dose: Not Given Vancomycin/Sodium Chloride (Vancomycin/Ns 1 Gm Ivpb) 200 mls @ 120 mls/hr IV Q8HR [facility]; Protocol Stop: 11/26/24 08:44 Last Admin: 11/21/24 05:26 Dose: 120 mls/hr Magnesium Sulfate (Magnesium Sulfate Ivpb) 2 gm in 50 mls @ 25 mls/hr IV X1 ONE Stop: 11/19/24 11:59 Last Admin: 11/19/24 19:41 Dose: Not Given Magnesium Sulfate (Magnesium Sulfate Ivpb) 4 gm in 50 mls @ 12.5 mls/hr IV X1 ONE Stop: 11/19/24 14:00 Last Admin: 11/19/24 11:03 Dose: 12.5 mls/hr Ibuprofen (Ibuprofen Tab 400 Mg Tablet) 800 mg PO X1 ONE Stop: 11/16/24 20:05 Last Admin: 11/16/24 20:41 Dose: 800 mg Lactulose (Lactulose Syrup 20 Gm/30 Ml Udc) 30 gm PO X1 ONE; Protocol Stop: 11/18/24 09:57 Last Admin: 11/18/24 10:11 Dose: 30 gm Lidocaine (Lidocaine 5% 1 Patch) 1 patch TOP X1 ONE Stop: 11/18/24 09:56 Last Admin: 11/18/24 10:12 Dose: 1 patch Lorazepam (Lorazepam 0.5 Mg Tablet) 1 mg PO Q8HR PRN PRN Reason: ALCOHOL WITHDRAWAL Stop: 11/22/24 14:18 Last Admin: 11/21/24 08:27 Dose: 1 mg Melatonin (Melatonin 3 Mg Tablet) 6 mg PO HS [facility] Stop: 12/19/24 20:59 Last Admin: 11/20/24 21:46 Dose: 6 mg Morphine Sulfate (Morphine Sulf Inj 4 Mg/Ml Vial) 2 mg IVP Q2H PRN PRN Reason: PAIN SCALE 7-10 (Severe Stop: 11/22/24 13:42 Morphine Sulfate (Morphine Sulf Inj 4 Mg/Ml Vial) 0.5 mg IVP Q6H PRN PRN Reason: PAIN SCALE 7-10 (Severe Stop: 11/22/24 13:42 Morphine Sulfate (Morphine Sulf Inj 4 Mg/Ml Vial) 1 mg IVP Q4HR PRN PRN Reason: Pain 7-10 Last Admin: 11/20/24 11:33 Dose: 1 mg Morphine Sulfate (Morphine Sulf Inj 4 Mg/Ml Vial) 1 mg IVP X1 ONE Stop: 11/20/24 13:50 Last Admin: 11/20/24 15:21 Dose: 1 mg Morphine Sulfate (Morphine Sulf Inj 4 Mg/Ml Vial) 2 mg IV X1 ONE Stop: 11/20/24 21:22 Last Admin: 11/20/24 21:45 Dose: 2 mg Morphine Sulfate (Morphine Sulf Inj 4 Mg/Ml Vial) 0.5 mg IVP X1 ONE Stop: 11/21/24 05:40 Last Admin: 11/21/24 05:49 Dose: 0.5 mg Ondansetron HCl (Ondansetron Inj 2 Mg/Ml Inj 2 Ml) 4 mg IVP Q6H PRN; Protocol PRN Reason: NAUSEA OR VOMITING Stop: 12/17/24 13:36 Last Admin: 11/17/24 13:52 Dose: 4 mg Pantoprazole Sodium (Pantoprazole Inj 40 Mg Vial) 40 mg IVP X1 ONE Stop: 11/17/24 11:34 Last Admin: 11/17/24 12:02 Dose: 40 mg Pantoprazole Sodium (Pantoprazole Inj 40 Mg Vial) 40 mg IVP BID [facility] Stop: 11/18/24 08:19 Last Admin: 11/17/24 20:38 Dose: 40 mg Polyethylene Glycol (Polyethylene Glycol 17 Gm Packet) 17 gm PO X1 ONE Stop: 11/21/24 08:13 Last Admin: 11/21/24 08:28 Dose: 17 gm Thiamine HCl (Thiamine Inj 100 Mg/Ml Vial 2 Ml) 100 mg IVP QDAY [facility] Stop: 11/19/24 16:44 Last Admin: 11/19/24 08:58 Dose: 100 mg Tramadol HCl (Tramadol Hcl 50 Mg Tablet) 50 mg PO Q6HR PRN PRN Reason: PAIN SCALE 4-6 (Moderate Stop: 11/22/24 13:42 Assessment & Plan Plan Patient is a 29-year-old male with past medical history significant for Alcohol use in withdrawal, cirrhosis, esophageal varices who came into the ER on 11/16 for further evaluation for suicidal ideation and alcohol withdrawal. ID was consulted for further management of patient's bacteremia. #Staphylococcus hominis bacteremia Patient was admitted for further management of alcohol withdrawal and suicidal ideation. Patient evidently found to have bacteremia in 2 of 2 bottles and has been on IV vancomycin since 11/19/2024. Repeat blood cultures have been negative in last 48 hours. Will recommend patient to receive echocardiogram if negative patient may stop antibiotics if positive patient will need to be on antibiotics after first negative blood culture. #Alcohol withdrawal #Alcohol use disorder #Insomnia #Back pain #Hepatitis #History of esophageal varices grade 1 #History of cirrhosis #GI bleed rule out #Anemia #Acute right knee pain #Denies abdominal pain #Dermatitis #Sinus bradycardia - Treatment as per primary team Patient's plan and care discussed with my attending, Dr. Yajaira Montez MD PGY-3
[2024-11-21] MEDS: VANCOMYCIN/NS 750 MG IVPB 750 MG/150 ML BAG 120 MG IV ×2 (13:57→22:21)
--- NOTE | 2024-11-21 13:57 | PC.PT ---
Patient is safe to ambulate to the bathroom with a FWW and 1 staff assist for safety. RN made aware.
[2024-11-21] MEDS: DIAZEPAM INJ 5 MG/ML VIAL 2 ML 2.5 MG IVP (16:07)
--- NOTE | 2024-11-21 16:41 | ESCONSULT_ITS ---
RE: ACSA DENTON : 1995 DATE OF CONSULTATION: 11/21/2024 REFERRING PHYSICIAN: Dr. Reza. REASON FOR CONSULTATION: Bacteremia with coagulase-negative staph. HISTORY OF PRESENT ILLNESS: The patient with alcoholic liver disease. The patient is a 29-year-old with a history of heavy alcohol use. His medical problems include primarily a substance use disorder primarily alcohol related and maybe on some chronic pain medication as well. He does not admit to any other health problems. PAST SURGICAL HISTORY: None. ALLERGIES: NONE NOTED. IMMUNIZATIONS: Last tetanus is unknown. He does not take flu shot every year and has had one COVID vaccine, has not had pneumococcal vaccination. FAMILY HISTORY: Unremarkable. SOCIAL HISTORY: He lives at home with his parents and he works in [employer]. He denies tobacco use except for occasional tobacco use and admits to alcohol use as mentioned. His hepatitis panel is presumably negative, not done, I will do one tomorrow. HIV test is similarly pending. An echocardiogram was ordered but is pending as well. If that is negative we can probably stop the vancomycin. But he had symptoms for about a week prior to coming here so it could also be that he has endocarditis but that would be unusual there is no embolic lesions seen in the hands or feet. I will check on his superficially and may be in person on Tuesday. DT: 15:30:37 TT: 16:40:00 Ref: [id number] - TID: [id number] [facility]
--- NOTE | 2024-11-21 16:55 | PC.SS ---
Rounding Note: Echo pending. Possible d/c tomorrow. Mental health eval pending medical clearance.
--- NOTE | 2024-11-21 20:33 | PD.IMPROG ---
Documentation for date of: 11/21/24 Subjective Subjective Interval history: Patient hemoglobin hematocrit 11.1 and 33.8 ID on board for GPC bacteremia currently on IV vancomycin mental status clearing up Exam Vital Signs Temp Pulse Resp BP Pulse Ox O2 Del Method 98.3 F 66 16 119/80 95 Room Air 11/21/24 16:05 11/21/24 16:05 11/21/24 16:05 11/21/24 16:05 11/21/24 16:05 11/21/24 16:05 Objective Labs 11/21/24 05:21 11/21/24 05:21 Labs: Laboratory Results - last 24 hr 11/21/24 05:21 WBC 3.8 RBC 3.67 L Hgb 11.1 L Hct 33.8 L MCV 92 MCH 30.2 MCHC 32.8 RDW Std Deviation 58.2 H Plt Count 227 D Neut % (Auto) 40 Lymph % (Auto) 39 [place] % (Auto) 17 H Eos % (Auto) 4 Baso % (Auto) 1 Neut # (Auto) 1.5 L Lymph # (Auto) 1.5 [place] # (Auto) 0.6 Eos # (Auto) 0.1 Baso # (Auto) 0.0 Immature Gran # (Auto) 0.00 Absolute Nucleated RBC 0.00 Immature Gran % 0 Nucleated RBC % 0 Sodium 141 Potassium 3.8 Chloride 104 Carbon Dioxide 27.2 Anion Gap 10 BUN < 5 L Creatinine 0.8 Estim Creat Clear Calc 107.1 eGFR > 60 BUN/Creatinine Ratio 6 L Glucose 101 Calculated Osmolality 278 Calcium 8.6 Corrected Calcium 8.8 Phosphorus 4.2 Magnesium 1.8 Total Bilirubin 0.4 AST 60 H ALT 40 Alkaline Phosphatase 148 H Total Protein 6.1 Albumin 3.8 D Globulin 2.3 Albumin/Globulin Ratio 1.7 Impressions Impression: Acute alcohol withdrawal improving GPC bacteremia Metabolic encephalopathy improving Chronic liver disease secondary to alcohol Recurrent GI bleed secondary to alcohol and advanced portal hypertension Continue current management Assessment & Plan A&P Narrative coag neg alonzo in bc in ED c/o fever cirrhosis with normal inr and plts but low counts. hx of heavy etoh use noted role of abx unclear to me. ok to get a trans thoracic echo and if neg then stop and re evaluate rx we will see briefly tuesday am he wants something for anxiety. but may have been the reason he was drinking etoh Time Spent With Patient Time: Total time spent is greater than 50% in coordination of care (as documented) at patient's floor/unit and/or counseling patient:
[2024-11-21] MEDS: DIAZEPAM INJ 5 MG/ML VIAL 2 ML IVP (20:39)
[2024-11-21] MEDS: ZOLPIDEM 5 MG TABLET PO (22:36)
[2024-11-22] VITALS (9 sets, daily range): BP systolic 114–125; BP diastolic 67–79; PULSE 8–83; RESP 3–18; TEMP 35.9–36.1; O2SAT 96–98; BMI 26.1
[2024-11-22] MEDS: DIAZEPAM INJ 5 MG/ML VIAL 2 ML IVP (00:48)
[2024-11-22] MEDS: HYDROcodone/APAP 5/325 TABLET 1 TAB PO ×3 (04:35→19:52)
[2024-11-22 05:45] LABS: Basophils # (Auto) 0.0 Thou/mm3 (0.0-0.2); Basophils % (Auto) 1 % (0-2.5); Eosinophils # (Auto) 0.2 Thou/mm3 (0.0-0.5); Eosinophils % (Auto) 5 % (0-10); Hematocrit 35.7 % (41.0-53.0); Hemoglobin 11.5 g/dL (13.5-16.0); Immature Granulocytes Auto 0.00 Thou/mm3 (0.00-0.00); Lymphocytes # (Auto) 1.5 Thou/mm3 (1.0-4.8); Lymphocytes % (Auto) 39 % (10-50); Mean Corpuscular HGB Conc 32.2 g/dl (31.0-37.0); Mean Corpuscular Hemoglobin 29.8 pg (25.0-35.0); Mean Corpuscular Volume 93 fL (80-100); Monocytes # (Auto) 0.6 Thou/mm3 (0.0-0.8); Monocytes % (Auto) 17 % (0-12); Neutrophils # (Auto) 1.5 Thou/mm3 (1.8-7.7); Neutrophils % (Auto) 39 % (37-80); Nucleated Red Blood Cell # 0.00 Thou/mm3 (0.00-0.00); Nucleated Red Blood Cell % 0 /100 WBC (0); Platelet Count 265 Thou/mm3 (140-440); RDW Standard Deviation 57.9 fL (35.1-43.9); Red Blood Count 3.86 Miln/mm3 (4.50-5.90); White Blood Count 3.8 Thou/mm3 (3.8-10.6)
[2024-11-22 06:16] LABS: Alanine Aminotransferase 62 U/L (10-49); Albumin, Serum 4.3 gm/dL (3.5-5.0); Albumin/Globulin Ratio 1.8 (1.2-2.2); Alkaline Phosphatase 160 U/L (46-116); Anion Gap 9 (7-16); Aspartate Amino Transferase 100 U/L (0-34); BUN/Creatinine Ratio 8 Ratio (12-20); Bilirubin,Total 0.4 mg/dL (0.3-1.2); Blood Urea Nitrogen 6 mg/dL (9-23); Calcium 9.1 mg/dL (8.3-10.6); Calcium (Corrected) 9.1 mg/dL (8.5-10.1); Carbon Dioxide 29.3 mMol/L (20.0-31.0); Chloride 103 mMol/L (98-107); Creatinine (Component) 0.8 mg/dL (0.6-1.3); Estimated Creatinine Clearance 112.1 mL/min (>60); Globulin 2.4 gm/dL (2.3-3.5); Glucose 89 mg/dL (74-106); Magnesium 2.0 mg/dL (1.6-2.6); Osmolality,Calculated 277 (275-295); Phosphorous 5.0 mg/dL (2.4-5.1); Potassium 3.7 mMol/L (3.4-5.1); Sodium 141 mMol/L (136-145); Total Protein 6.7 gm/dL (5.7-8.2); eGFR > 60 See Note
[2024-11-22] MEDS: VANCOMYCIN/NS 750 MG IVPB 750 MG/150 ML BAG 120 MG IV (06:28)
[2024-11-22] MEDS: GABAPENTIN 100 MG CAPSULE PO ×3 (06:28→21:24)
[2024-11-22] MEDS: DIAZEPAM INJ 5 MG/ML VIAL 2 ML 2.5 MG IVP (06:45)
[2024-11-22] MEDS: ENOXAPARIN SOD INJ 40 MG/0.4 ML SYRINGE SC (08:30)
[2024-11-22] MEDS: THIAMINE 100 MG TABLET PO (08:31)
[2024-11-22] MEDS: FOLIC ACID 1 MG TABLET PO (08:31)
[2024-11-22] MEDS: PANTOPRAZOLE 40 MG TABLET PO ×2 (08:31→21:24)
[2024-11-22] MEDS: LORazepam 2 MG/ML VIAL 0.5 MG IVP ×5 (09:11→23:25)
--- NOTE | 2024-11-22 11:34 | PD.RESPRO ---
Documentation for date of: 11/22/24 Subjective Subjective Interval history: Patient seen at bedside. No acute overnight events. Tolerating meals, no nausea/vomiting. CIWA ranging from 0-9. Chlordiazepoxide 10mg x1 for ongoing withdrawal sx. Echocardiogram ruled out endocarditis. Physical therapy recommended discharge with home health. Exam Vital Signs Temp Pulse Resp BP Pulse Ox O2 Del Method 96.9 F 58 L 18 120/69 98 Room Air 11/22/24 08:00 11/22/24 08:00 11/22/24 08:00 11/22/24 08:00 11/22/24 08:00 11/22/24 08:00 Narrative Exam General: No acute distress, well nourished, AAO x3, mild tremors hands Eye: PERRL, EOMI, normal conjunctiva, no scleral icterus HENT: Normocephalic, atraumatic, hearing intact to conversation at normal volume, moist oral mucosa Neck: Supple, non-tender, no JVD, no lymphadenopathy Lungs: Non-labored respirations, symmetric chest rise, Clear to auscultate bilaterally, No wheezing, rhonchi, crackles Heart: Peripheral pulses intact bilaterally, Regular Rate and Rhythm. Abdomen: Soft, non-distended, no palpable masses, tenderness in all 4 quadrants on palpation. Musculoskeletal: Tenderness to palpation over the vertebral bodies from thoracic to lumbar spine. Normal range of motion and strength, No cyanosis or edema, No visible joint swelling Skin: Skin is warm, dry, maculopapular rash in both forearms. Psychiatric: Cooperative, appropriate mood and affect, Awake and alert, not agitated Neuro: Cranial nerves II-XII grossly intact. Strength 5/5 throughout. Sensations intact to light touch. Objective Labs 11/22/24 04:50 11/22/24 04:50 Labs: Laboratory Results - last 24 hr 11/22/24 04:50 WBC 3.8 RBC 3.86 L Hgb 11.5 L Hct 35.7 L MCV 93 MCH 29.8 MCHC 32.2 RDW Std Deviation 57.9 H Plt Count 265 D Neut % (Auto) 39 Lymph % (Auto) 39 [place] % (Auto) 17 H Eos % (Auto) 5 Baso % (Auto) 1 Neut # (Auto) 1.5 L Lymph # (Auto) 1.5 [place] # (Auto) 0.6 Eos # (Auto) 0.2 Baso # (Auto) 0.0 Immature Gran # (Auto) 0.00 Absolute Nucleated RBC 0.00 Immature Gran % 0 Nucleated RBC % 0 Sodium 141 Potassium 3.7 Chloride 103 Carbon Dioxide 29.3 Anion Gap 9 BUN 6 L Creatinine 0.8 Estim Creat Clear Calc 112.1 eGFR > 60 BUN/Creatinine Ratio 8 L Glucose 89 Calculated Osmolality 277 Calcium 9.1 Corrected Calcium 9.1 Phosphorus 5.0 Magnesium 2.0 Total Bilirubin 0.4 AST 100 H ALT 62 H Alkaline Phosphatase 160 H Total Protein 6.7 Albumin 4.3 D Globulin 2.4 Albumin/Globulin Ratio 1.8 Quality Measures Quality Measures VTE prophylaxis (SCds) Assessment & Plan Assessment Current Active Medications: Generic Name Dose Route Start Last Admin Trade Name Freq PRN Reason Stop Dose Admin Acetaminophen 650 mg 11/22/24 08:49 Acetaminophen 325 Mg Tablet PO 12/17/24 13:42 Q6H PRN PAIN 1-3 OR FEVER > 101 Protocol Hydrocodone Bitart/Acetaminophen 1 tab 11/21/24 11:06 11/22/24 11:21 Hydrocodone/Apap 5/325 Tablet PO 11/26/24 11:05 1 tab Q6HR PRN Administration Pain 4-6 Bisacodyl 10 mg 11/17/24 13:37 Bisacodyl 5 Mg Tabec PO 12/17/24 13:36 QDAY PRN CONSTIPATION Protocol Chlordiazepoxide HCl 10 mg 11/22/24 11:33 Chlordiazepoxide Hcl 10 Mg Capsule PO 11/22/24 11:34 X1 ONE Dextrose 25 ml 11/17/24 16:01 Dextrose 50%-Water Inj 50 Ml Syringe IV 12/17/24 16:00 Q15MIN PRN BG 50-70 responsive npo pt Dextrose 50 ml 11/17/24 16:01 Dextrose 50%-Water Inj 50 Ml Syringe IV 12/17/24 16:00 Q15MIN PRN BG <50 OR BG <70 & pt unresponsive Enoxaparin Sodium 40 mg 11/20/24 12:15 11/22/24 08:30 Enoxaparin Sod Inj 40 Mg/0.4 Ml Syringe SC 12/04/24 12:14 40 mg QDAY APOORVA Administration Folic Acid 1 mg 11/20/24 09:00 11/22/24 08:31 Folic Acid 1 Mg Tablet PO 12/20/24 08:59 1 mg QDAY APOORVA Administration Gabapentin 100 mg 11/20/24 14:00 11/22/24 06:28 Gabapentin 100 Mg Capsule PO 12/20/24 13:59 100 mg TID APOORVA Administration Glucagon 1 mg 11/17/24 16:01 Glucagon Inj 1 Mg Vial IM Q15MIN PRN BG <70, and no IV access Lorazepam 2 mg 11/22/24 08:30 Lorazepam 2 Mg/Ml Vial IVP 11/27/24 08:29 Q2H PRN CIWA SCORE 20-25 Lorazepam 0.5 mg 11/22/24 08:32 11/22/24 11:22 Lorazepam 2 Mg/Ml Vial IVP 11/27/24 08:31 0.5 mg Q2H PRN Administration CIWA SCORE 8-13 Lorazepam 1 mg 11/22/24 08:33 Lorazepam 2 Mg/Ml Vial IVP 11/27/24 08:32 Q2H PRN CIWA SCORE 14-19 Pantoprazole Sodium 40 mg 11/18/24 09:00 11/22/24 08:31 Pantoprazole 40 Mg Tablet PO 12/18/24 08:59 40 mg BID APOORVA Administration Prochlorperazine Maleate 5 mg 11/19/24 10:00 Prochlorperazine Maleate 5 Mg Tablet PO 12/19/24 09:59 Q6HR PRN NAUSEA OR VOMITING Sennosides 1 tab 11/18/24 09:00 11/22/24 08:31 Senna Tablet PO 12/18/24 08:59 1 tab QDAY APOORVA Administration Protocol Thiamine HCl 100 mg 11/20/24 09:00 11/22/24 08:31 Thiamine 100 Mg Tablet PO 12/20/24 08:59 100 mg QDAY APOORVA Administration Zinc Acetate/Diphenhydramine 0 gm 11/17/24 18:27 11/18/24 05:48 Diphenhydramine/Zn Acet 2% Cr 30 Gm Tube TOP 12/17/24 18:26 1 applicatio Q6HR PRN Administration RASH Zolpidem Tartrate 5 mg 11/21/24 21:00 11/21/24 22:36 Zolpidem 5 Mg Tablet PO 12/21/24 20:59 5 mg HS APOORVA Administration Plan 29-year-old male with alcohol use disorder and cirrhosis admitted for severe alcohol withdrawal after developing symptoms in the ED post-psychiatric clearance, requiring ICU upgrade for CIWA score of 21. Patient has been downgraded to telemetry on 11/18/2024 #Alcohol withdrawal #Alcohol use disorder First CIWA on admission: 28 at 12:43 on 11/17/2024, with tremors, nausea, severe anxiety, restlessness, headache, tactile hallucination. Last drink was ~40 ounces of beer on 11/16 at noon and EtOH leel of 394 on ED admission. Withdrawl s/s started 17hrs after ED admission Hepatitis likely due to alcohol VS drug/toxin, autoimmune, chronic inflammation, steatohepatitis, viral infection and traumatic 11/19: CIWA ranging from 2-24 Plan: -Continue CIWA protocol. Diazepam prn for symptom control. -Chlordiazepoxide 10mg x1 -Thiamine 100mg qd prior to glucose administration to prevent Wernicke?s encephalopathy -Folic acid 1mg qd for nutritional support -Hypoglycemia protocol for increased risk of inadequate nutiritional intake and underlying hepatic impairment. #Insomnia -Ambien 5mg qHS #Back pain Patient feel from [place] and hurt back prior to ED presentation Spinal tenderness T+L spine -[place] 5 q6h PRN -PT consult #Hepatitis #History of esophageal varices (Grade I) #History of cirrhosis -Hepatitis likely due to alcohol VS drug/toxin, autoimmune, chronic inflammation, steatohepatitis, viral infection and traumatic - CT abd/pelvis 09/02/2024: Primary hepatocellular disease versus cirrhosis. - EGD 11/02/2024: Grade I esophageal varices. Plan: -On CIWA protocol - Monitor for signs of decompensated liver disease (worsening LFTs, ascites, encephalopathy) #GI bleed, ruled out #Anemia -One episode of hematemesis. -On admission, Hgb: 10.7 Plan: -GI consulted, Recommendation appreciated -IV pantoprazole bid -Consider iron studies, B12, and folate levels if hemoglobin trends downward. -Transfuse if Hgb < 7 (current Hgb 11.4) or symptomatic. #R Knee pain R Knee XR 11/20: no fractures Plan - PRN analgesia #Generalized abdominal pain -Patient tender in all 4 quadrants. -Likely due to alcohol withdrawal. -CT abd/pelvis (11/17/2024): Liver is irregular in contour, Thickening of the gastric mucosa. Cholelithiasis, no gallbladder wall thickening.Negative for pancreatitis. No renal or ureteral calculi, no hydronephrosis No bowel obstruction or diverticulitis Normal appendix, Bladder intact, Osseous structures intact. Plan: -Acetaminophen prn #Dermatitis -allergic contact dermatitis vs irritant contact dermatitis -Multiple maculopapular lesions on forearms and left neck Plan: -Topical Benadryl prn #Sinus Bradycardia, resolved #GPC Bacteremia, ruled out Patient's blood cultures grew GPC from 11/17, staph appearing from both sets but only 1 bottle each. Repeat BCx 11/19 neg after 48hrs Plan -IV vancomycin stopped (11/19-11/22) Health Maintenance Disposition: MedSurg Diet: Regular diet GI prophylaxis: Pantoprazole 40mg po bid DVT prophylaxis: SCD Code:FULL Case discussed with my attending Dr. Aguilar, and senior resident, Dr. Gale Purdy MD PGY-1 Attending Provider Attestation/Addendum I have discussed and was present for the essential components of the history, physical examination, diagnosis, and treatment plan with the resident. I agree with the patient's care as documented by the resident and amended herein by me. Deni Aguilar DO. Although this document has been carefully reviewed, there may still be some phonetic and other typographical errors. These errors are purely grammatical due to imperfections in the software program and should not be construed in any way to compromise the substance of the patient's medical care during this visit. Patient seen and evaluated this AM. No subjective complaints, patient still a bit diaphoretic and tremulous this morning, CIWA score was 9, here for EtOH withdrawal, possible discharge home tomorrow if he improves. We did director counseling bureau him extensively on the necessity of alcohol cessation and he understood. Crisis eval pending once medically cleared.
--- NOTE | 2024-11-22 12:16 | PC.SS ---
Rounding: Pt not medically clear, one more day. Pt will need MH eval upon medical clearance. ED CC, Soumya made aware and is on stand by.
[2024-11-22 13:47] LABS: Vancomycin,Trough 15.3 mcg/mL (5.0-10.0)
[2024-11-22] MEDS: DiphenhydrAMINE/ZN ACET 2% CR 30 GM TUBE TOP (14:35)
--- NOTE | 2024-11-22 14:53 | PC.SS ---
Rounding Note: CIWA score elevated. D/C 1 more day.
[2024-11-22] MEDS: KETOROLAC INJ 30 MG/ML VIAL 15 MG IVP (18:03)
--- NOTE | 2024-11-22 21:20 | PD.IMPROG ---
Documentation for date of: 11/22/24 Subjective Subjective Interval history: Patient evaluated More alert and oriented tolerating diet Exam Vital Signs Temp Pulse Resp BP Pulse Ox O2 Del Method 96.9 F 70 3 L 125/79 97 Room Air 11/22/24 20:00 11/22/24 20:00 11/22/24 20:00 11/22/24 20:00 11/22/24 20:00 11/22/24 20:00 Objective Labs 11/22/24 04:50 11/22/24 04:50 Labs: Laboratory Results - last 24 hr 11/22/24 11/22/24 04:50 13:03 WBC 3.8 RBC 3.86 L Hgb 11.5 L Hct 35.7 L MCV 93 MCH 29.8 MCHC 32.2 RDW Std Deviation 57.9 H Plt Count 265 D Neut % (Auto) 39 Lymph % (Auto) 39 [place] % (Auto) 17 H Eos % (Auto) 5 Baso % (Auto) 1 Neut # (Auto) 1.5 L Lymph # (Auto) 1.5 [place] # (Auto) 0.6 Eos # (Auto) 0.2 Baso # (Auto) 0.0 Immature Gran # (Auto) 0.00 Absolute Nucleated RBC 0.00 Immature Gran % 0 Nucleated RBC % 0 Sodium 141 Potassium 3.7 Chloride 103 Carbon Dioxide 29.3 Anion Gap 9 BUN 6 L Creatinine 0.8 Estim Creat Clear Calc 112.1 eGFR > 60 BUN/Creatinine Ratio 8 L Glucose 89 Calculated Osmolality 277 Calcium 9.1 Corrected Calcium 9.1 Phosphorus 5.0 Magnesium 2.0 Total Bilirubin 0.4 AST 100 H ALT 62 H Alkaline Phosphatase 160 H Total Protein 6.7 Albumin 4.3 D Globulin 2.4 Albumin/Globulin Ratio 1.8 Vancomycin Trough 15.3 H Impressions Impression: Upper GI bleed secondary to hypertensive portal gastropathy Hemoglobin hematocrit relatively stable at the moment Hepatic encephalopathy resolved Alcohol withdrawal resolving on chlordiazepoxide Assessment & Plan A&P Narrative coag neg staph in bc in ED c/o fever cirrhosis with normal inr and plts but low counts. hx of heavy etoh use noted role of abx unclear to me. ok to get a trans thoracic echo and if neg then stop and re evaluate rx we will see briefly tuesday am he wants something for anxiety. but may have been the reason he was drinking etoh Time Spent With Patient Time: Total time spent is greater than 50% in coordination of care (as documented) at patient's floor/unit and/or counseling patient:
[2024-11-22] MEDS: ZOLPIDEM 5 MG TABLET PO (21:24)
[2024-11-23] VITALS (7 sets, daily range): BP systolic 111–136; BP diastolic 64–80; PULSE 53–99; RESP 13–21; TEMP 35.9–36.5; O2SAT 96–99; BMI 25.5
[2024-11-23 05:59] LABS: Basophils # (Auto) 0.0 Thou/mm3 (0.0-0.2); Basophils % (Auto) 1 % (0-2.5); Eosinophils # (Auto) 0.2 Thou/mm3 (0.0-0.5); Eosinophils % (Auto) 4 % (0-10); Hematocrit 33.8 % (41.0-53.0); Hemoglobin 11.0 g/dL (13.5-16.0); Immature Granulocytes Auto 0.01 Thou/mm3 (0.00-0.00); Lymphocytes # (Auto) 1.3 Thou/mm3 (1.0-4.8); Lymphocytes % (Auto) 31 % (10-50); Mean Corpuscular HGB Conc 32.5 g/dl (31.0-37.0); Mean Corpuscular Hemoglobin 29.9 pg (25.0-35.0); Mean Corpuscular Volume 92 fL (80-100); Monocytes # (Auto) 0.7 Thou/mm3 (0.0-0.8); Monocytes % (Auto) 15 % (0-12); Neutrophils # (Auto) 2.1 Thou/mm3 (1.8-7.7); Neutrophils % (Auto) 50 % (37-80); Nucleated Red Blood Cell # 0.00 Thou/mm3 (0.00-0.00); Nucleated Red Blood Cell % 0 /100 WBC (0); Platelet Count 218 Thou/mm3 (140-440); RDW Standard Deviation 58.8 fL (35.1-43.9); Red Blood Count 3.68 Miln/mm3 (4.50-5.90); White Blood Count 4.3 Thou/mm3 (3.8-10.6)
[2024-11-23 06:24] LABS: Alanine Aminotransferase 89 U/L (10-49); Albumin, Serum 4.1 gm/dL (3.5-5.0); Albumin/Globulin Ratio 1.8 (1.2-2.2); Alkaline Phosphatase 160 U/L (46-116); Anion Gap 9 (7-16); Aspartate Amino Transferase 131 U/L (0-34); BUN/Creatinine Ratio 9 Ratio (12-20); Bilirubin,Total 0.3 mg/dL (0.3-1.2); Blood Urea Nitrogen 9 mg/dL (9-23); Calcium 9.0 mg/dL (8.3-10.6); Calcium (Corrected) 9.0 mg/dL (8.5-10.1); Carbon Dioxide 28.7 mMol/L (20.0-31.0); Chloride 103 mMol/L (98-107); Creatinine (Component) 1.0 mg/dL (0.6-1.3); Estimated Creatinine Clearance 88.8 mL/min (>60); Globulin 2.3 gm/dL (2.3-3.5); Glucose 107 mg/dL (74-106); Magnesium 1.8 mg/dL (1.6-2.6); Osmolality,Calculated 279 (275-295); Phosphorous 5.2 mg/dL (2.4-5.1); Potassium 3.9 mMol/L (3.4-5.1); Sodium 141 mMol/L (136-145); Total Protein 6.4 gm/dL (5.7-8.2); eGFR > 60 See Note
[2024-11-23] MEDS: PANTOPRAZOLE 40 MG TABLET PO ×2 (09:10→21:32)
[2024-11-23] MEDS: THIAMINE 100 MG TABLET PO (09:10)
[2024-11-23] MEDS: ENOXAPARIN SOD INJ 40 MG/0.4 ML SYRINGE SC (09:10)
[2024-11-23] MEDS: FOLIC ACID 1 MG TABLET PO (09:10)
[2024-11-23] MEDS: HYDROcodone/APAP 5/325 TABLET 1 TAB PO ×2 (09:22→18:51)
--- NOTE | 2024-11-23 09:48 | PD.HHPROG ---
Documentation for date of: 11/23/24 Subjective - Hospitalist Subjective Interval history: Patient has asterixis, nausea, abdominal pain, diarrhea, ongoing withdrawal with moderately elevated CIWA score. Complains of generalized body aches including pain and thoracic spine. Review of Systems Review of Systems Narrative Review of Systems: Negative except as above Exam Vital Signs Temp Pulse Resp BP Pulse Ox O2 Del Method 97.7 F 73 18 125/79 98 Room Air 11/23/24 08:00 11/23/24 08:00 11/23/24 08:00 11/23/24 08:00 11/23/24 08:00 11/23/24 08:00 Additional findings Additional findings: General: No acute distress, well nourished, AAO x3, mild tremors hands Eye: PERRL, EOMI, normal conjunctiva, no scleral icterus HENT: Normocephalic, atraumatic, hearing intact to conversation at normal volume, moist oral mucosa Neck: Supple, non-tender, no JVD, no lymphadenopathy Lungs: Non-labored respirations, symmetric chest rise, Clear to auscultate bilaterally, No wheezing, rhonchi, crackles Heart: Peripheral pulses intact bilaterally, Regular Rate and Rhythm. Abdomen: Soft, non-distended, no palpable masses, tenderness in all 4 quadrants on palpation. Musculoskeletal: No focal tenderness to palpation over the vertebral bodies from thoracic to lumbar spine. Normal range of motion and strength, No cyanosis or edema, No visible joint swelling Skin: Skin is warm, dry, maculopapular rash in both forearms. Psychiatric: Cooperative, appropriate mood and affect, Awake and alert, not agitated Neuro: Cranial nerves II-XII grossly intact. Strength 5/5 throughout. Sensations intact to light touch. Objective - Hospitalist Labs Diagram: 11/23/24 05:00 11/23/24 05:00 Labs: Laboratory Results - last 24 hr 11/22/24 11/23/24 13:03 05:00 WBC 4.3 RBC 3.68 L Hgb 11.0 L Hct 33.8 L MCV 92 MCH 29.9 MCHC 32.5 RDW Std Deviation 58.8 H Plt Count 218 D Neut % (Auto) 50 Lymph % (Auto) 31 [place] % (Auto) 15 H Eos % (Auto) 4 Baso % (Auto) 1 Neut # (Auto) 2.1 Lymph # (Auto) 1.3 [place] # (Auto) 0.7 Eos # (Auto) 0.2 Baso # (Auto) 0.0 Immature Gran # (Auto) 0.01 H Absolute Nucleated RBC 0.00 Immature Gran % 0 Nucleated RBC % 0 Sodium 141 Potassium 3.9 Chloride 103 Carbon Dioxide 28.7 Anion Gap 9 BUN 9 Creatinine 1.0 Estim Creat Clear Calc 88.8 eGFR > 60 BUN/Creatinine Ratio 9 L Glucose 107 H Calculated Osmolality 279 Calcium 9.0 Corrected Calcium 9.0 Phosphorus 5.2 H Magnesium 1.8 Total Bilirubin 0.3 AST 131 H ALT 89 H Alkaline Phosphatase 160 H Total Protein 6.4 Albumin 4.1 Globulin 2.3 Albumin/Globulin Ratio 1.8 Vancomycin Trough 15.3 H Assessment & Plan Plan: A 29-year-old male with heavy alcohol use disorder and cirrhosis admitted for alcohol withdrawal after developing symptoms in the ED post-psychiatric clearance, requiring ICU upgrade for CIWA score of 21. Patient has been downgraded to telemetry on 11/18/2024, continue to have elevated CIWA score on p.o. chlordiazepoxide. Additionally blood cultures did not reveal staph bacteremia however in 2/4 bottles, had been on antibiotics which has been stopped on 11/20/2023. Currently moderately elevated CIWA score. -Continue CIWA protocol, thiamine, folic acid. - Start on Librium 10 mg 3 times daily - TTE had poor windows, requested cardiology for DANO. - Will get CT cervical and thoracic spine with contrast -Continue GI prophylaxis and DVT prophylaxis. - Will keep on hold antibiotics as per ID recommendations Time Spent with Patient Time: Total time spent is greater than 50% in coordination of care (as documented) at patient's floor/unit and/or counseling patient: Time with patient: 25 - 35 minutes Reason for Continued Stay Reason for continued stay: further dx testing Quality Measures Quality Measures VTE prophylaxis (SCds)
--- NOTE | 2024-11-23 11:08 | ESPR_ITS ---
Subjective Subjective Interval history: echo neg. bc with only coag neg no ana endocarditis, hiv and hep panel neg in past Exam Vital Signs Temp Pulse Resp BP Pulse Ox O2 Del Method 97.7 F 73 18 125/79 98 Room Air 11/23/24 08:00 11/23/24 08:00 11/23/24 08:00 11/23/24 08:00 11/23/24 08:00 11/23/24 08:00 Narrative Exam limited visit today Objective - Internal Medicine Labs 11/23/24 05:00 11/23/24 05:00 Labs: Laboratory Results - last 24 hr 11/22/24 11/23/24 13:03 05:00 WBC 4.3 RBC 3.68 L Hgb 11.0 L Hct 33.8 L MCV 92 MCH 29.9 MCHC 32.5 RDW Std Deviation 58.8 H Plt Count 218 D Neut % (Auto) 50 Lymph % (Auto) 31 [place] % (Auto) 15 H Eos % (Auto) 4 Baso % (Auto) 1 Neut # (Auto) 2.1 Lymph # (Auto) 1.3 [place] # (Auto) 0.7 Eos # (Auto) 0.2 Baso # (Auto) 0.0 Immature Gran # (Auto) 0.01 H Absolute Nucleated RBC 0.00 Immature Gran % 0 Nucleated RBC % 0 Sodium 141 Potassium 3.9 Chloride 103 Carbon Dioxide 28.7 Anion Gap 9 BUN 9 Creatinine 1.0 Estim Creat Clear Calc 88.8 eGFR > 60 BUN/Creatinine Ratio 9 L Glucose 107 H Calculated Osmolality 279 Calcium 9.0 Corrected Calcium 9.0 Phosphorus 5.2 H Magnesium 1.8 Total Bilirubin 0.3 AST 131 H ALT 89 H Alkaline Phosphatase 160 H Total Protein 6.4 Albumin 4.1 Globulin 2.3 Albumin/Globulin Ratio 1.8 Vancomycin Trough 15.3 H Assessment & Plan A&P Narrative coag neg staph in bc in ED c/o fever cirrhosis with normal inr and plts but low counts. hx of heavy etoh use noted role of abx unclear to me. ok to get a trans thoracic echo and if neg then stop and re evaluate rx we will see briefly tuesday am he wants something for anxiety. but may have been the reason he was drinking etoh will see again prn Time Spent With Patient Time: Total time spent is greater than 50% in coordination of care (as documented) at patient's floor/unit and/or counseling patient:
--- NOTE | 2024-11-23 12:55 | XR_ITS ---
Examination: Examination: CT thoracic spine, without contrast. 2-D sagittal reconstructions. 2-D coronal reconstructions. 3-D reconstructions. Date and time of exam: November 23, 2024, 1825 hours INDICATIONS: Injury to the back today with back pain tenderness and bacteremia CTDI: vol (mGy): 57.8 DLP: (mGycm): 2070 Technique: Multiple 1.25 mm axial sections of the thoracic spine without intravenous contrast have been obtained. 2-D sagittal and coronal reconstructions have been obtained. 3-D reconstructions have been obtained. Low dose protocols were performed. One or more of the following dose reduction techniques were used; automated exposure control, adjustment of the mA and/or KV according to patient size, use of iterative reconstruction technique. Findings: Satisfactory line midthoracic vertebral bodies No thoracic fracture No thoracic disc narrowing Thoracic franz, lamina, transverse and posterior spinous processes intact Axial images demonstrate no focal thoracic disc protrusion IMPRESSION: No thoracic fracture or thoracic disc narrowing No focal thoracic disc protrusion If epidural abscess or spinal canal infection is a clinical consideration, suggest MRI thoracic spine follow-up pre and postcontrast
--- NOTE | 2024-11-23 13:26 | PC.SS ---
[employer]ING [employer] OFFIC[employer] informed by attending that patient is not medically cleared. Mental health evaluation to be completed once patient is medically cleared. Bedside nurse updated.
[2024-11-23] MEDS: GABAPENTIN 100 MG CAPSULE PO ×2 (13:29→21:32)
[2024-11-23] MEDS: LORazepam 2 MG/ML VIAL 0.5 MG IVP ×2 (13:29→16:40)
--- NOTE | 2024-11-23 16:24 | PC.SS ---
Rounding Note: DANO is pending. D/C on Tuesday per attending.
--- NOTE | 2024-11-23 18:07 | XR_ITS ---
Examination: CT cervical spine with intravenous 2-D sagittal reconstructions 2-D coronal reconstructions 3-D reconstructions. Exam date and time: November 23, 2024, 1825 hours, comparison November 16, 2024 INDICATIONS: Neck pain, neck trauma 1 week ago, tenderness of bacteremia CTDI:vol (mGy) 15.8 DLP: (mGycm) 336 Technique: Multiple 2 mm axial sections of the cervical spine have been obtained. Post administration 60 cc Isovue 370 The coronal and sagittal reconstructions have been obtained. 3-D reconstructions have been obtained. Low dose protocols were performed. One or more of the following dose reduction techniques were used; automated exposure control, adjustment of the mA and/or KV according to patient size, use of iterative reconstruction technique. Findings: Axial sections demonstrate intact base of the skull. C1 exhibit satisfactory relationship to the odontoid. No acute cervical vertebral body fracture seen. Alignment posterior spinous processes satisfactory. No focal cervical disc protrusion No abnormal soft tissue enhancement on these postcontrast images Impression: No acute cervical fracture. No focal cervical disc protrusion No abnormal enhancing prevertebral or posterior epidural abscess MRI cervical spine post contrast follow-up, however, would be preferable in assessing for epidural abscess
--- NOTE | 2024-11-23 19:10 | ESPR_ITS ---
Documentation for date of: 11/23/24 Subjective Subjective Interval history: More alert and oriented Followed by ID Exam Vital Signs Temp Pulse Resp BP Pulse Ox O2 Del Method 97.2 F 63 21 H 112/67 97 Room Air 11/23/24 16:00 11/23/24 16:00 11/23/24 16:00 11/23/24 16:00 11/23/24 16:00 11/23/24 16:00 Objective Labs 11/23/24 05:00 11/23/24 05:00 Labs: Laboratory Results - last 24 hr 11/23/24 05:00 WBC 4.3 RBC 3.68 L Hgb 11.0 L Hct 33.8 L MCV 92 MCH 29.9 MCHC 32.5 RDW Std Deviation 58.8 H Plt Count 218 D Neut % (Auto) 50 Lymph % (Auto) 31 [place] % (Auto) 15 H Eos % (Auto) 4 Baso % (Auto) 1 Neut # (Auto) 2.1 Lymph # (Auto) 1.3 [place] # (Auto) 0.7 Eos # (Auto) 0.2 Baso # (Auto) 0.0 Immature Gran # (Auto) 0.01 H Absolute Nucleated RBC 0.00 Immature Gran % 0 Nucleated RBC % 0 Sodium 141 Potassium 3.9 Chloride 103 Carbon Dioxide 28.7 Anion Gap 9 BUN 9 Creatinine 1.0 Estim Creat Clear Calc 88.8 eGFR > 60 BUN/Creatinine Ratio 9 L Glucose 107 H Calculated Osmolality 279 Calcium 9.0 Corrected Calcium 9.0 Phosphorus 5.2 H Magnesium 1.8 Total Bilirubin 0.3 AST 131 H ALT 89 H Alkaline Phosphatase 160 H Total Protein 6.4 Albumin 4.1 Globulin 2.3 Albumin/Globulin Ratio 1.8 Impressions Impression: Chronic liver disease secondary to alcohol Upper GI bleed stable due to esophageal varices and hypertensive portal gastropathy Bacteremia treated with IV antibiotics ID on board Assessment & Plan A&P Narrative coag neg staph in in ED c/o fever cirrhosis with normal inr and plts but low counts. hx of heavy etoh use noted role of abx unclear to me. ok to get a trans thoracic echo and if neg then stop and re evaluate rx we will see briefly tuesday am he wants something for anxiety. but may have been the reason he was drinking etoh will see again prn Time Spent With Patient Time: Total time spent is greater than 50% in coordination of care (as documented) at patient's floor/unit and/or counseling patient:
[2024-11-23] MEDS: LORazepam 2 MG/ML VIAL 1 MG IVP (19:20)
[2024-11-23] MEDS: ZOLPIDEM 5 MG TABLET PO (21:32)
[2024-11-24 04:00] VITALS: BP 111/68; PULSE 51; RESP 12; TEMP 36.6; O2SAT 98
[2024-11-24] MEDS: GABAPENTIN 100 MG CAPSULE PO ×3 (05:53→21:34)
[2024-11-24 06:00] VITALS: BMI 25.5
[2024-11-24 06:09] LABS: Basophils # (Auto) 0.0 Thou/mm3 (0.0-0.2); Basophils % (Auto) 1 % (0-2.5); Eosinophils # (Auto) 0.2 Thou/mm3 (0.0-0.5); Eosinophils % (Auto) 5 % (0-10); Hematocrit 33.4 % (41.0-53.0); Hemoglobin 11.1 g/dL (13.5-16.0); Immature Granulocytes Auto 0.00 Thou/mm3 (0.00-0.00); Lymphocytes # (Auto) 1.2 Thou/mm3 (1.0-4.8); Lymphocytes % (Auto) 35 % (10-50); Mean Corpuscular HGB Conc 33.2 g/dl (31.0-37.0); Mean Corpuscular Hemoglobin 30.0 pg (25.0-35.0); Mean Corpuscular Volume 90 fL (80-100); Monocytes # (Auto) 0.6 Thou/mm3 (0.0-0.8); Monocytes % (Auto) 18 % (0-12); Neutrophils # (Auto) 1.4 Thou/mm3 (1.8-7.7); Neutrophils % (Auto) 41 % (37-80); Nucleated Red Blood Cell # 0.00 Thou/mm3 (0.00-0.00); Nucleated Red Blood Cell % 0 /100 WBC (0); Platelet Count 220 Thou/mm3 (140-440); RDW Standard Deviation 56.4 fL (35.1-43.9); Red Blood Count 3.70 Miln/mm3 (4.50-5.90); White Blood Count 3.3 Thou/mm3 (3.8-10.6)
[2024-11-24 06:37] LABS: Alanine Aminotransferase 118 U/L (10-49); Albumin, Serum 4.4 gm/dL (3.5-5.0); Albumin/Globulin Ratio 1.8 (1.2-2.2); Alkaline Phosphatase 167 U/L (46-116); Anion Gap 11 (7-16); Aspartate Amino Transferase 155 U/L (0-34); BUN/Creatinine Ratio 8 Ratio (12-20); Bilirubin,Total 0.4 mg/dL (0.3-1.2); Blood Urea Nitrogen 7 mg/dL (9-23); Calcium 9.2 mg/dL (8.3-10.6); Calcium (Corrected) 9.2 mg/dL (8.5-10.1); Carbon Dioxide 27.1 mMol/L (20.0-31.0); Chloride 103 mMol/L (98-107); Creatinine (Component) 0.9 mg/dL (0.6-1.3); Estimated Creatinine Clearance 98.7 mL/min (>60); Globulin 2.4 gm/dL (2.3-3.5); Glucose 98 mg/dL (74-106); Magnesium 1.8 mg/dL (1.6-2.6); Osmolality,Calculated 279 (275-295); Phosphorous 5.2 mg/dL (2.4-5.1); Potassium 3.9 mMol/L (3.4-5.1); Sodium 141 mMol/L (136-145); Total Protein 6.8 gm/dL (5.7-8.2); eGFR > 60 See Note
[2024-11-24] MEDS: LORazepam 2 MG/ML VIAL 0.5 MG IVP ×2 (06:38→16:22)
[2024-11-24 08:00] VITALS: BP 112/71; PULSE 60; PULSE 63; RESP 18; TEMP 36.1; O2SAT 96
[2024-11-24] MEDS: THIAMINE 100 MG TABLET PO (09:05)
[2024-11-24] MEDS: PANTOPRAZOLE 40 MG TABLET PO ×2 (09:05→21:34)
[2024-11-24] MEDS: FOLIC ACID 1 MG TABLET PO (09:05)
[2024-11-24] MEDS: ENOXAPARIN SOD INJ 40 MG/0.4 ML SYRINGE SC (09:05)
[2024-11-24 12:00] VITALS: BP 104/64; PULSE 61; PULSE 67; RESP 17; TEMP 36.1; O2SAT 96
--- NOTE | 2024-11-24 12:21 | ESPR_ITS ---
Documentation for date of: 11/24/24 Subjective Subjective Interval history: Patient evaluated Alert and oriented Exam Vital Signs Temp Pulse Resp BP Pulse Ox O2 Del Method 97.0 F 60 18 112/71 96 Room Air 11/24/24 08:00 11/24/24 08:00 11/24/24 08:00 11/24/24 08:00 11/24/24 08:00 11/24/24 08:00 Objective Labs 11/24/24 05:35 11/24/24 05:35 Labs: Laboratory Results - last 24 hr 11/24/24 05:35 WBC 3.3 L RBC 3.70 L Hgb 11.1 L Hct 33.4 L MCV 90 MCH 30.0 MCHC 33.2 RDW Std Deviation 56.4 H Plt Count 220 Neut % (Auto) 41 Lymph % (Auto) 35 [place] % (Auto) 18 H Eos % (Auto) 5 Baso % (Auto) 1 Neut # (Auto) 1.4 L Lymph # (Auto) 1.2 [place] # (Auto) 0.6 Eos # (Auto) 0.2 Baso # (Auto) 0.0 Immature Gran # (Auto) 0.00 Absolute Nucleated RBC 0.00 Immature Gran % 0 Nucleated RBC % 0 Sodium 141 Potassium 3.9 Chloride 103 Carbon Dioxide 27.1 Anion Gap 11 BUN 7 L Creatinine 0.9 Estim Creat Clear Calc 98.7 eGFR > 60 BUN/Creatinine Ratio 8 L Glucose 98 Calculated Osmolality 279 Calcium 9.2 Corrected Calcium 9.2 Phosphorus 5.2 H Magnesium 1.8 Total Bilirubin 0.4 AST 155 H ALT 118 H Alkaline Phosphatase 167 H Total Protein 6.8 Albumin 4.4 Globulin 2.4 Albumin/Globulin Ratio 1.8 Impressions Impression: Acute alcohol withdrawal Diffuse gastritis Esophageal varices 1+ Continue supportive care Assessment & Plan A&P Narrative coag neg staph in bc in ED c/o fever cirrhosis with normal inr and plts but low counts. hx of heavy etoh use noted role of abx unclear to me. ok to get a trans thoracic echo and if neg then stop and re evaluate rx we will see briefly tuesday am he wants something for anxiety. but may have been the reason he was drinking etoh will see again prn Time Spent With Patient Time: Total time spent is greater than 50% in coordination of care (as documented) at patient's floor/unit and/or counseling patient:
--- NOTE | 2024-11-24 13:08 | ESPR_ITS ---
Documentation for date of: 11/24/24 Subjective - Hospitalist Subjective Interval history: Complains of continued diffuse bodyaches specially on the spine. CT cervical and thoracic spine did not reveal any abnormality low concern of any OM at this point Denies chest pain, shortness of breath however is tremulous on [facility] protocol Review of Systems Review of Systems Narrative Review of Systems: Negative except as above Exam Vital Signs Temp Pulse Resp BP Pulse Ox O2 Del Method 97.0 F 61 17 104/64 96 Room Air 11/24/24 12:00 11/24/24 12:00 11/24/24 12:00 11/24/24 12:00 11/24/24 12:00 11/24/24 12:00 Additional findings Additional findings: General: No acute distress, well nourished, AAO x3, mild tremors hands Eye: PERRL, EOMI, normal conjunctiva, no scleral icterus HENT: Normocephalic, atraumatic, hearing intact to conversation at normal volume, moist oral mucosa Neck: Supple, non-tender, no JVD, no lymphadenopathy Lungs: Non-labored respirations, symmetric chest rise, Clear to auscultate bilaterally, No wheezing, rhonchi, crackles Heart: Peripheral pulses intact bilaterally, Regular Rate and Rhythm. Abdomen: Soft, non-distended, no palpable masses, tenderness in all 4 quadrants on palpation. Musculoskeletal: No focal tenderness to palpation over the vertebral bodies from thoracic to lumbar spine. Normal range of motion and strength, No cyanosis or edema, No visible joint swelling Skin: Skin is warm, dry, maculopapular rash in both forearms. Psychiatric: Cooperative, appropriate mood and affect, Awake and alert, not agitated Neuro: Cranial nerves II-XII grossly intact. Strength 5/5 throughout. Sensations intact to light touch. Objective - Hospitalist Labs Diagram: 11/24/24 05:35 11/24/24 05:35 Labs: Laboratory Results - last 24 hr 11/24/24 05:35 WBC 3.3 L RBC 3.70 L Hgb 11.1 L Hct 33.4 L MCV 90 MCH 30.0 MCHC 33.2 RDW Std Deviation 56.4 H Plt Count 220 Neut % (Auto) 41 Lymph % (Auto) 35 Porter % (Auto) 18 H Eos % (Auto) 5 Baso % (Auto) 1 Neut # (Auto) 1.4 L Lymph # (Auto) 1.2 Porter # (Auto) 0.6 Eos # (Auto) 0.2 Baso # (Auto) 0.0 Immature Gran # (Auto) 0.00 Absolute Nucleated RBC 0.00 Immature Gran % 0 Nucleated RBC % 0 Sodium 141 Potassium 3.9 Chloride 103 Carbon Dioxide 27.1 Anion Gap 11 BUN 7 L Creatinine 0.9 Estim Creat Clear Calc 98.7 eGFR > 60 BUN/Creatinine Ratio 8 L Glucose 98 Calculated Osmolality 279 Calcium 9.2 Corrected Calcium 9.2 Phosphorus 5.2 H Magnesium 1.8 Total Bilirubin 0.4 AST 155 H ALT 118 H Alkaline Phosphatase 167 H Total Protein 6.8 Albumin 4.4 Globulin 2.4 Albumin/Globulin Ratio 1.8 Assessment & Plan Plan: A 29-year-old male with heavy alcohol use disorder and cirrhosis admitted for alcohol withdrawal after developing symptoms in the ED post-psychiatric clearance, requiring ICU upgrade for CIWA score of 21. Patient has been downgraded to telemetry on 11/18/2024, continue to have elevated CIWA score on p.o. chlordiazepoxide. Additionally blood cultures did reveal staph bacteremia however in 2/4 bottles, had been on antibiotics which has been stopped on 11/20/2023. ID is on board questionable bacteremia, consulted cardiology was planning for DANO likely tomorrow. Currently moderately elevated CIWA score. Patient complains of upper neck pain for which CT cervical and thoracic spine did not reveal any concern for infectious or structural etiology. -Continue CIWA protocol, thiamine, folic acid. - Continue on Librium 10 mg 3 times daily - TTE had poor windows, DANO tomorrow, keep n.p.o. overnight. - Continue GI prophylaxis and DVT prophylaxis. - Will keep on hold antibiotics as per ID recommendations Time Spent with Patient Time: Total time spent is greater than 50% in coordination of care (as documented) at patient's floor/unit and/or counseling patient: Time with patient: 25 - 35 minutes Reason for Continued Stay Reason for continued stay: further monitoring and surgical intervention Quality Measures Quality Measures VTE prophylaxis (SCds)
[2024-11-24 16:00] VITALS: BP 110/65; PULSE 58; PULSE 61; RESP 14; TEMP 36.4; O2SAT 95
[2024-11-24] MEDS: ACETAMINOPHEN 325 MG TABLET 650 MG PO (16:21)
[2024-11-24 20:00] VITALS: BP 127/80; PULSE 84; RESP 21; TEMP 36.2; O2SAT 97
[2024-11-24] MEDS: ZOLPIDEM 5 MG TABLET PO (21:34)
[2024-11-24] MEDS: LIDOCAINE 5% 1 PATCH TOP (21:59)
[2024-11-25] VITALS (7 sets, daily range): BP systolic 98–125; BP diastolic 49–72; PULSE 48–75; RESP 12–22; TEMP 35.9–36.6; O2SAT 96–99; BMI 26.6
[2024-11-25] MEDS: ACETAMINOPHEN 325 MG TABLET 650 MG PO ×2 (03:33→09:46)
[2024-11-25 05:47] LABS: Basophils # (Auto) 0.0 Thou/mm3 (0.0-0.2); Basophils % (Auto) 1 % (0-2.5); Eosinophils # (Auto) 0.1 Thou/mm3 (0.0-0.5); Eosinophils % (Auto) 3 % (0-10); Hematocrit 33.6 % (41.0-53.0); Hemoglobin 10.7 g/dL (13.5-16.0); Immature Granulocytes Auto 0.01 Thou/mm3 (0.00-0.00); Lymphocytes # (Auto) 1.3 Thou/mm3 (1.0-4.8); Lymphocytes % (Auto) 35 % (10-50); Mean Corpuscular HGB Conc 31.8 g/dl (31.0-37.0); Mean Corpuscular Hemoglobin 29.4 pg (25.0-35.0); Mean Corpuscular Volume 92 fL (80-100); Monocytes # (Auto) 0.8 Thou/mm3 (0.0-0.8); Monocytes % (Auto) 20 % (0-12); Neutrophils # (Auto) 1.5 Thou/mm3 (1.8-7.7); Neutrophils % (Auto) 41 % (37-80); Nucleated Red Blood Cell # 0.00 Thou/mm3 (0.00-0.00); Nucleated Red Blood Cell % 0 /100 WBC (0); Platelet Count 188 Thou/mm3 (140-440); RDW Standard Deviation 58.1 fL (35.1-43.9); Red Blood Count 3.64 Miln/mm3 (4.50-5.90); White Blood Count 3.8 Thou/mm3 (3.8-10.6)
[2024-11-25 06:26] LABS: Alanine Aminotransferase 151 U/L (10-49); Albumin, Serum 4.5 gm/dL (3.5-5.0); Albumin/Globulin Ratio 1.9 (1.2-2.2); Alkaline Phosphatase 180 U/L (46-116); Anion Gap 13 (7-16); Aspartate Amino Transferase 189 U/L (0-34); BUN/Creatinine Ratio 7 Ratio (12-20); Bilirubin,Total 0.4 mg/dL (0.3-1.2); Blood Urea Nitrogen 6 mg/dL (9-23); Calcium 9.4 mg/dL (8.3-10.6); Calcium (Corrected) 9.4 mg/dL (8.5-10.1); Carbon Dioxide 24.9 mMol/L (20.0-31.0); Chloride 102 mMol/L (98-107); Creatinine (Component) 0.9 mg/dL (0.6-1.3); Estimated Creatinine Clearance 100.4 mL/min (>60); Globulin 2.4 gm/dL (2.3-3.5); Glucose 90 mg/dL (74-106); Osmolality,Calculated 277 (275-295); Potassium 3.8 mMol/L (3.4-5.1); Sodium 140 mMol/L (136-145); Total Protein 6.9 gm/dL (5.7-8.2); eGFR > 60 See Note
[2024-11-25] MEDS: ENOXAPARIN SOD INJ 40 MG/0.4 ML SYRINGE SC (09:14)
[2024-11-25] MEDS: PANTOPRAZOLE 40 MG TABLET PO ×2 (09:14→21:40)
[2024-11-25] MEDS: THIAMINE 100 MG TABLET PO (09:14)
[2024-11-25] MEDS: FOLIC ACID 1 MG TABLET PO (09:14)
[2024-11-25] MEDS: LORazepam 2 MG/ML VIAL 0.5 MG IVP ×2 (12:18→18:01)
--- NOTE | 2024-11-25 13:00 | PC.SS ---
Rounding: Pending MRI and DANO. Will need mental health eval upon medical clearance
--- NOTE | 2024-11-25 13:02 | ESCONSULT_ITS ---
<Statement entered by Carter Fabian MD - 11/30/24 13:34> I personally examined the patient evaluated the patient with resident physician PGY 2 Dr. Dieudonne JUAREZ patient admitted hospital alcohol withdrawal apparently found to have gram-positive cocci and only 1 bottle of Staphylococcus appears to be contamination clinically no evidence of endocarditis transthoracic echo reviewed by me personally did not show any vegetations no need for transesophageal echo. Evaluated patient with resident physician Dr. Dieudonne JUAREZ agree with the treatment plan recommendation as documented by PGY 2 resident physician will continue to monitor the patient if necessary. HPI Data of Consult Requesting Physician: Priscila Prasad MD Admitting Provider: Dieudonne Purdy MD Attending Provider: Priscila Prasad MD Primary Care Provider: Balwinder Humphrey MD Consult Narrative History of present illness: 29-year-old male with history of cirrhosis secondary to alcohol complicated by esophageal varices, alcohol withdrawal who was admitted on 11/17/2024 for possible suicide attempt after receiving a message from his stating that she wanted to file for divorce. He was found located near a bridge and there were concerns for suicide but states that it was a misinterpretation. For the past week prior to admission he had drank two to three 40 ounce beers. Initially admitted to the ICU for close monitoring of alcohol withdrawal but has since been downgraded. Hospital course complicated as blood cultures grew Staph hominis in 2 out of 2 bottles for which ID was consulted. Repeat blood cultures have been negative and TTE without clear evidence of vegetations. Patient denies any IVDU or recent dental procedures though does state he has toothache in right upper jaw. Does report neck pain after falling down as he was walking to a clinic [place] [id number] No fevers or chills, but did have sweats when he was experiencing withdrawals. Endorses right-sided chest discomfort but not cardiac in nature and denies shortness of breath. Cardiology consulted for DANO to rule out endocarditis. cc:: cc: Priscila Prasad MD Review of Systems Review of Systems Systems Reviewed: All systems reviewed, normal except as documented Exam Vital Signs Temp Pulse Resp BP Pulse Ox O2 Del Method 97.9 F 56 L 16 112/65 99 Room Air 11/25/24 11:56 11/25/24 11:56 11/25/24 11:56 11/25/24 11:56 11/25/24 11:56 11/25/24 11:56 Narrative Exam General: AOx3, no acute distress, able to speak full sentences HEENT: NC/AT, mucous membranes moist, bilateral sclera anicteric Cardiovascular: regular rate and rhythm, S1/S2 present, no murmurs appreciated Pulmonary: clear to auscultation bilaterally, no rales/rhonchi/wheezes Abdominal: soft, non-tender, non-distended, no rebound/guarding, normal bowel sounds present Musculoskeletal: normal ROM, no peripheral edema Skin: warm and dry, intact, no rashes Neuro: CN II-XII intact, no focal deficits Results Labs 11/26/24 04:23 11/26/24 04:23 Labs: Short CBC 11/25/24 Range/Units 04:37 WBC 3.8 (3.8-10.6) Thou/mm3 Hgb 10.7 L (13.5-16.0) g/dL Hct 33.6 L (41.0-53.0) % Plt Count 188 D (140-440) Thou/mm3 BMP 11/25/24 04:37 Sodium 140 Potassium 3.8 Chloride 102 Carbon Dioxide 24.9 BUN 6 L Creatinine 0.9 Glucose 90 Calcium 9.4 Liver Function 11/25/24 Range/Units 04:37 Total Bilirubin 0.4 (0.3-1.2) mg/dL AST 189 H (0-34) U/L ALT 151 H (10-49) U/L Alkaline Phosphatase 180 H (46-116) U/L Albumin 4.5 (3.5-5.0) gm/dL Quality Measures Quality Measures VTE prophylaxis (SCds) Medications Home Medications and Allergies Allergies Allergy/AdvReac Type Severity Reaction Status Date / Time No Known Allergies Allergy Verified 11/16/24 16:33 Visit Medications Acetaminophen (Acetaminophen 325 Mg Tablet) 650 mg PO Q6H PRN; Protocol PRN Reason: PAIN 1-3 OR FEVER > 101 Stop: 12/17/24 13:42 Last Admin: 11/25/24 09:46 Dose: 650 mg Bisacodyl (Bisacodyl 5 Mg Tabec) 10 mg PO QDAY PRN; Protocol PRN Reason: CONSTIPATION Stop: 12/17/24 13:36 Dextrose (Dextrose 50%-Water Inj 50 Ml Syringe) 25 ml IV Q15MIN PRN PRN Reason: BG 50-70 responsive npo pt Stop: 12/17/24 16:00 Dextrose (Dextrose 50%-Water Inj 50 Ml Syringe) 50 ml IV Q15MIN PRN PRN Reason: BG <50 OR BG <70 & pt unresponsive Stop: 12/17/24 16:00 Enoxaparin Sodium (Enoxaparin Sod Inj 40 Mg/0.4 Ml Syringe) 40 mg SC QDAY [facility] Stop: 12/04/24 12:14 Last Admin: 11/25/24 09:14 Dose: 40 mg Folic Acid (Folic Acid 1 Mg Tablet) 1 mg PO QDAY [facility] Stop: 12/20/24 08:59 Last Admin: 11/25/24 09:14 Dose: 1 mg Gabapentin (Gabapentin 100 Mg Capsule) 100 mg PO TID [facility] Stop: 12/20/24 13:59 Last Admin: 11/25/24 06:24 Dose: Not Given Glucagon (Glucagon Inj 1 Mg Vial) 1 mg IM Q15MIN PRN PRN Reason: BG <70, and no IV access Ketorolac Tromethamine (Ketorolac 10 Mg Tablet) 10 mg PO Q6HR PRN PRN Reason: PAIN SCALE 4-6 (Moderate Stop: 11/27/24 17:34 Lidocaine (Lidocaine 5% 1 Patch) 1 patch TOP UD PRN PRN Reason: PAIN Stop: 12/24/24 11:15 Lorazepam (Lorazepam 2 Mg/Ml Vial) 2 mg IVP Q2H PRN PRN Reason: CIWA SCORE 20-25 Stop: 11/27/24 08:29 Lorazepam (Lorazepam 2 Mg/Ml Vial) 0.5 mg IVP Q2H PRN PRN Reason: CIWA SCORE 8-13 Stop: 11/27/24 08:31 Last Admin: 11/24/24 16:22 Dose: 0.5 mg Lorazepam (Lorazepam 2 Mg/Ml Vial) 1 mg IVP Q2H PRN PRN Reason: CIWA SCORE 14-19 Stop: 11/27/24 08:32 Last Admin: 11/23/24 19:20 Dose: 1 mg Pantoprazole Sodium (Pantoprazole 40 Mg Tablet) 40 mg PO BID [facility] Stop: 12/18/24 08:59 Last Admin: 11/25/24 09:14 Dose: 40 mg Prochlorperazine Maleate (Prochlorperazine Maleate 5 Mg Tablet) 5 mg PO Q6HR PRN PRN Reason: NAUSEA OR VOMITING Stop: 12/19/24 09:59 Sennosides (Senna Tablet) 1 tab PO QDAY APOORVA; Protocol Stop: 12/18/24 08:59 Last Admin: 11/25/24 09:14 Dose: 1 tab Thiamine HCl (Thiamine 100 Mg Tablet) 100 mg PO QDAY APOORVA Stop: 12/20/24 08:59 Last Admin: 11/25/24 09:14 Dose: 100 mg Zinc Acetate/Diphenhydramine (Diphenhydramine/Zn Acet 2% Cr 30 Gm Tube) 0 gm TOP Q6HR PRN PRN Reason: RASH Stop: 12/17/24 18:26 Last Admin: 11/22/24 14:35 Dose: 1 applicatio Zolpidem Tartrate (Zolpidem 5 Mg Tablet) 5 mg PO HS APOORVA Stop: 12/22/24 20:59 Last Admin: 11/24/24 21:34 Dose: 5 mg Discontinued Medications Acetaminophen (Acetaminophen 325 Mg Tablet) 650 mg PO Q6H PRN; Protocol PRN Reason: PAIN OR FEVER > 101 Stop: 12/17/24 13:42 Last Admin: 11/19/24 01:18 Dose: 650 mg Acetaminophen (Acetaminophen 325 Mg Tablet) 650 mg PO X1 ONE Stop: 11/18/24 09:57 Last Admin: 11/18/24 10:12 Dose: 650 mg Hydrocodone Bitart/Acetaminophen (Hydrocodone/Apap 5/325 Tablet) 1 tab PO Q6HR PRN PRN Reason: Pain 4-6 Stop: 11/26/24 11:05 Last Admin: 11/23/24 09:22 Dose: 1 tab Hydrocodone Bitart/Acetaminophen (Hydrocodone/Apap 5/325 Tablet) 1 tab PO X1 ONE Stop: 11/23/24 18:08 Last Admin: 11/23/24 18:51 Dose: 1 tab Chlordiazepoxide HCl (Chlordiazepoxide Hcl 25 Mg Capsule) 50 mg PO Q6HR APOORVA Stop: 11/22/24 14:29 Last Admin: 11/18/24 05:27 Dose: 50 mg Chlordiazepoxide HCl (Chlordiazepoxide Hcl 25 Mg Capsule) 25 mg PO TID APOORVA Stop: 11/24/24 15:44 Last Admin: 11/20/24 06:16 Dose: 25 mg Chlordiazepoxide HCl (Chlordiazepoxide Hcl 25 Mg Capsule) 25 mg PO BID [facility] Stop: 11/25/24 08:59 Last Admin: 11/20/24 21:47 Dose: 25 mg Chlordiazepoxide HCl (Chlordiazepoxide Hcl 10 Mg Capsule) 10 mg PO X1 ONE Stop: 11/21/24 11:07 Last Admin: 11/21/24 13:30 Dose: 10 mg Chlordiazepoxide HCl (Chlordiazepoxide Hcl 10 Mg Capsule) 10 mg PO X1 ONE Stop: 11/22/24 11:34 Last Admin: 11/22/24 13:53 Dose: 10 mg Chlordiazepoxide HCl (Chlordiazepoxide Hcl 10 Mg Capsule) 10 mg PO TID [facility] Stop: 11/28/24 13:59 Last Admin: 11/25/24 06:24 Dose: Not Given Phenobarbital Sodium 130 mg/ (Sodium Chloride 12 ml) 0 mg IVP X1 ONE Stop: 11/17/24 14:17 Last Admin: 11/17/24 14:34 Dose: 130 mg Cyclobenzaprine HCl (Cyclobenzaprine 5 Mg Tablet) 10 mg PO BID PRN PRN Reason: MUSCLE SPASMS Stop: 12/19/24 14:04 Last Admin: 11/19/24 21:57 Dose: 10 mg Diazepam (Diazepam 5 Mg Tablet) 5 mg PO X1 ONE Stop: 11/17/24 09:05 Last Admin: 11/17/24 09:34 Dose: Not Given Diazepam (Diazepam 5 Mg Tablet) 10 mg PO X1 ONE Stop: 11/17/24 09:05 Last Admin: 11/17/24 09:31 Dose: 10 mg Diazepam (Diazepam Inj 5 Mg/Ml Vial 2 Ml) 2.5 mg IVP Q2HR PRN PRN Reason: CIWA SCORE 8-13 Stop: 11/22/24 13:36 Diazepam (Diazepam Inj 5 Mg/Ml Vial 2 Ml) 5 mg IVP Q2HR PRN PRN Reason: CIWA SCORE 14-19 Stop: 11/22/24 13:36 Diazepam (Diazepam Inj 5 Mg/Ml Vial 2 Ml) 10 mg IVP Q2HR PRN PRN Reason: CIWA SCORE 20-25 Stop: 11/22/24 13:36 Last Admin: 11/17/24 13:53 Dose: 10 mg Diazepam (Diazepam Inj 5 Mg/Ml Vial 2 Ml) 10 mg IVP Q2HR PRN PRN Reason: CIWA SCORE 20 Stop: 11/22/24 13:36 Diazepam (Diazepam Inj 5 Mg/Ml Vial 2 Ml) 2.5 mg IVP Q2HR PRN PRN Reason: CIWA SCORE 8-13 Stop: 11/22/24 13:36 Last Admin: 11/18/24 12:20 Dose: 2.5 mg Diazepam (Diazepam Inj 5 Mg/Ml Vial 2 Ml) 5 mg IVP Q2HR PRN PRN Reason: CIWA SCORE 14-19 Stop: 11/22/24 13:36 Last Admin: 11/17/24 21:21 Dose: 5 mg Diazepam (Diazepam Inj 5 Mg/Ml Vial 2 Ml) 10 mg IVP Q4H PRN PRN Reason: CIWA SCORE Stop: 11/22/24 16:12 Last Admin: 11/19/24 15:13 Dose: 10 mg Diazepam (Diazepam Inj 5 Mg/Ml Vial 2 Ml) 2.5 mg IVP Q4HR PRN PRN Reason: CIWA SCORE 8-13 Stop: 11/22/24 16:12 Last Admin: 11/18/24 21:40 Dose: 2.5 mg Diazepam (Diazepam Inj 5 Mg/Ml Vial 2 Ml) 5 mg IVP Q4HR PRN PRN Reason: CIWA SCORE 14- Stop: 11/22/24 16:12 Last Admin: 11/19/24 12:24 Dose: 5 mg Diazepam (Diazepam Inj 5 Mg/Ml Vial 2 Ml) 10 mg IVP Q2H PRN PRN Reason: CIWA SCORE - Stop: 11/23/24 13:55 Last Admin: 11/19/24 17:18 Dose: 10 mg Diazepam (Diazepam Inj 5 Mg/Ml Vial 2 Ml) 2.5 mg IVP Q2H PRN PRN Reason: CIWA SCORE 8-13 Stop: 11/23/24 13:55 Last Admin: 11/22/24 06:45 Dose: 2.5 mg Diazepam (Diazepam Inj 5 Mg/Ml Vial 2 Ml) 5 mg IVP Q2H PRN PRN Reason: CIWA SCORE 14-19 Stop: 11/23/24 13:55 Last Admin: 11/22/24 00:48 Dose: 5 mg Enoxaparin Sodium (Enoxaparin Sod Inj 40 Mg/0.4 Ml Syringe) 40 mg SC QDAY [facility] Stop: 12/02/24 08:59 Famotidine (Famotidine 20 Mg Tablet) 20 mg PO X1 ONE Stop: 11/18/24 09:58 Last Admin: 11/18/24 10:13 Dose: 20 mg Folic Acid (Folic Acid Inj 1 Mg/0.2 Ml) 1 mg IVP QDAY APOORVA Stop: 11/19/24 16:44 Last Admin: 11/19/24 08:55 Dose: 1 mg Gabapentin (Gabapentin 100 Mg Capsule) 100 mg PO QDAY [facility] Stop: 12/18/24 14:44 Last Admin: 11/20/24 09:07 Dose: 100 mg Lactated Ringer's (Lactated Ringers) 500 mls @ 125 mls/hr IV .Q4H ONE Stop: 11/17/24 15:38 Last Infusion: 11/17/24 16:59 Dose: Infused Lactated Ringer's (Lactated Ringers) 1,000 mls @ 100 mls/hr IV .Q10H APOORVA Stop: 11/18/24 11:08 Last Admin: 11/18/24 02:55 Dose: 100 mls/hr Dexmedetomidine/Sodium Chloride (Precedex Ivpb) 400 mcg in 100 mls @ 3.175 mls/hr IV .Q24H PRN; Protocol PRN Reason: Per PROTOCOL Stop: 12/17/24 16:06 Last Titration: 11/18/24 06:45 Dose: 0 mcg/kg/hr, 0 mls/hr Magnesium Sulfate (Magnesium Sulfate Ivpb) 2 gm in 50 mls @ 25 mls/hr IV X1 ONE Stop: 11/17/24 18:33 Last Admin: 11/17/24 17:03 Dose: 25 mls/hr Magnesium Sulfate (Magnesium Sulfate Ivpb) 2 gm in 50 mls @ 25 mls/hr IV X1 ONE Stop: 11/18/24 04:51 Last Infusion: 11/18/24 05:10 Dose: Infused Lactated Ringer's (Lactated Ringers) 1,000 mls @ 999 mls/hr IV .Q1H1M ONE Stop: 11/18/24 09:26 Last Admin: 11/19/24 19:41 Dose: Not Given Vancomycin/Sodium Chloride (Vancomycin/Ns 1 Gm Ivpb) 200 mls @ 120 mls/hr IV Q8HR APOORVA; Protocol Stop: 11/26/24 08:44 Last Admin: 11/21/24 05:26 Dose: 120 mls/hr Magnesium Sulfate (Magnesium Sulfate Ivpb) 2 gm in 50 mls @ 25 mls/hr IV X1 ONE Stop: 11/19/24 11:59 Last Admin: 11/19/24 19:41 Dose: Not Given Magnesium Sulfate (Magnesium Sulfate Ivpb) 4 gm in 50 mls @ 12.5 mls/hr IV X1 ONE Stop: 11/19/24 14:00 Last Admin: 11/19/24 11:03 Dose: 12.5 mls/hr Vancomycin/Sodium Chloride (Vancomycin/Ns 750 Mg Ivpb) 750 mg in 150 mls @ 120 mls/hr IV Q8HR APOORVA Stop: 11/28/24 13:59 Last Admin: 11/22/24 06:28 Dose: 120 mls/hr Ibuprofen (Ibuprofen Tab 400 Mg Tablet) 800 mg PO X1 ONE Stop: 11/16/24 20:05 Last Admin: 11/16/24 20:41 Dose: 800 mg Ketorolac Tromethamine (Ketorolac Inj 30 Mg/Ml Vial) 15 mg IVP X1 ONE Stop: 11/22/24 17:36 Last Admin: 11/22/24 18:03 Dose: 15 mg Lactulose (Lactulose Syrup 20 Gm/30 Ml Udc) 30 gm PO X1 ONE; Protocol Stop: 11/18/24 09:57 Last Admin: 11/18/24 10:11 Dose: 30 gm Lidocaine (Lidocaine 5% 1 Patch) 1 patch TOP X1 ONE Stop: 11/18/24 09:56 Last Admin: 11/18/24 10:12 Dose: 1 patch Lidocaine (Lidocaine 5% 1 Patch) 1 patch TOP X1 ONE Stop: 11/24/24 21:39 Last Admin: 11/24/24 21:59 Dose: 1 patch Lorazepam (Lorazepam 0.5 Mg Tablet) 1 mg PO Q8HR PRN PRN Reason: ALCOHOL WITHDRAWAL Stop: 11/22/24 14:18 Last Admin: 11/21/24 08:27 Dose: 1 mg Melatonin (Melatonin 3 Mg Tablet) 6 mg PO HS APOORVA Stop: 12/19/24 20:59 Last Admin: 11/20/24 21:46 Dose: 6 mg Morphine Sulfate (Morphine Sulf Inj 4 Mg/Ml Vial) 2 mg IVP Q2H PRN PRN Reason: PAIN SCALE 7-10 (Severe Stop: 11/22/24 13:42 Morphine Sulfate (Morphine Sulf Inj 4 Mg/Ml Vial) 0.5 mg IVP Q6H PRN PRN Reason: PAIN SCALE 7-10 (Severe Stop: 11/22/24 13:42 Morphine Sulfate (Morphine Sulf Inj 4 Mg/Ml Vial) 1 mg IVP Q4HR PRN PRN Reason: Pain 7-10 Last Admin: 11/20/24 11:33 Dose: 1 mg Morphine Sulfate (Morphine Sulf Inj 4 Mg/Ml Vial) 1 mg IVP X1 ONE Stop: 11/20/24 13:50 Last Admin: 11/20/24 15:21 Dose: 1 mg Morphine Sulfate (Morphine Sulf Inj 4 Mg/Ml Vial) 2 mg IV X1 ONE Stop: 11/20/24 21:22 Last Admin: 11/20/24 21:45 Dose: 2 mg Morphine Sulfate (Morphine Sulf Inj 4 Mg/Ml Vial) 0.5 mg IVP X1 ONE Stop: 11/21/24 05:40 Last Admin: 11/21/24 05:49 Dose: 0.5 mg Ondansetron HCl (Ondansetron Inj 2 Mg/Ml Inj 2 Ml) 4 mg IVP Q6H PRN; Protocol PRN Reason: NAUSEA OR VOMITING Stop: 12/17/24 13:36 Last Admin: 11/17/24 13:52 Dose: 4 mg Pantoprazole Sodium (Pantoprazole Inj 40 Mg Vial) 40 mg IVP X1 ONE Stop: 11/17/24 11:34 Last Admin: 11/17/24 12:02 Dose: 40 mg Pantoprazole Sodium (Pantoprazole Inj 40 Mg Vial) 40 mg IVP BID APOORVA Stop: 11/18/24 08:19 Last Admin: 11/17/24 20:38 Dose: 40 mg Pharmacy Consult (Vancomycin Pharmacy To Dose 1 Each Each) 1 each IV QDAY PRN PRN Reason: RX Stop: 12/19/24 08:59 Polyethylene Glycol (Polyethylene Glycol 17 Gm Packet) 17 gm PO X1 ONE Stop: 11/21/24 08:13 Last Admin: 11/21/24 08:28 Dose: 17 gm Thiamine HCl (Thiamine Inj 100 Mg/Ml Vial 2 Ml) 100 mg IVP QDAY APOORVA Stop: 11/19/24 16:44 Last Admin: 11/19/24 08:58 Dose: 100 mg Tramadol HCl (Tramadol Hcl 50 Mg Tablet) 50 mg PO Q6HR PRN PRN Reason: PAIN SCALE 4-6 (Moderate Stop: 11/22/24 13:42 Zolpidem Tartrate (Zolpidem 5 Mg Tablet) 5 mg PO HS APOORVA Stop: 12/21/24 20:59 Last Admin: 11/21/24 22:36 Dose: 5 mg Assessment & Plan Plan 29-year-old male with history of cirrhosis secondary to alcohol complicated by esophageal varices, alcohol withdrawal who was admitted on 11/17/2024 for possible suicide attempt and alcohol withdrawal. Cardiology consulted due to concern for endocarditis and need for DANO. #? Endocarditis #Staphylococcus hominis bacteremia Presented with possible suicidal ideation and alcohol withdrawal. Hospital course complicated by positive blood cultures for Staphylococcus hominis in 2/2 bottles. Repeat blood cultures have since been negative, TTE without evidence of vegetations, no fevers or leukocytosis. CT cervical and thoracic spine without evidence of abscesses. On exam, no murmurs appreciated on cardiac auscultation, no open wounds seen, no splinter hemorrhages, Osler nodes, or Jan[place]ay lesions appreciated. Upon review of telemetry, sinus bradycardia present but no evidence of arrhythmias. ID also consulted and if TTE without evidence of endocarditis, can discontinue antibiotics and no mention of need for DANO. Per 2022 Brar-ISCVID criteria, no major criteria met and only 1 minor criteria met and thus unlikely that patient has endocarditis. Additionally, echo reviewed and all four valves visualized with low concern for vegetations. ? MRI cervical and thoracic spine pending ? From cardiology standpoint, no need for DANO given above rationale ? Can be discharged from cardiology standpoint and will be signing off ? ID consulted, appreciate recommendations #Alcohol dependence #Cirrhosis complicated by esophageal varices #Alcohol withdrawal #Transaminitis ? Continue management per primary team ----- Plan discussed with attending physician Dr. Rui Juarez MD PGY-2 Internal Medicine
[2024-11-25] MEDS: KETOROLAC 10 MG TABLET PO ×2 (13:05→19:52)
--- NOTE | 2024-11-25 13:25 | ESPR_ITS ---
<Statement entered by Beckie Martínez MD - 11/25/24 13:42> 29-year-old male with past medical history of alcohol use disorder was admitted for alcohol withdrawal. #Alcohol withdrawal -patient CIWA is 0-DC Librium, slowly wean off from CIWA protocol #?GPC bacteremia-repeat blood cultures negative, most likely contamination, echo negative for any vegetation, patient is afebrile, WBC within normal limit. Will follow-up with cardio recommendations regarding need for DANO #Severe back pain-order MRI spine to rule out any abscess. I personally saw and examined the patient and discussed the assessment and plan with the entire medicine team, including my attending , Beckie Martínez M.D. PGY-3 Disclaimer: Despite multiple revisions, due to the dictation software being used, the document bellow may not be free of grammatical errors including phonetic/typographic errors. However, this does not deter from our commitment to providing health care in the patient's best interest in mind. Documentation for date of: 11/25/24 Subjective Subjective Interval history: Patient seen at bedside. No acute overnight events. Tolerating meals, no nausea/vomiting. CIWA ranging from 0. Stopped Librium. Echocardiogram ruled out endocarditis. Physical therapy recommended discharge with home health. Afebrile, no WBC elevation, cardiology assessed today and does not think DANO is needed, cleared from cardiology. Ongoing back pain, MRI cervical and thoracic spine ordered to r/o abcess. Exam Vital Signs Temp Pulse Resp BP Pulse Ox O2 Del Method 97.9 F 56 L 16 112/65 99 Room Air 11/25/24 11:56 11/25/24 11:56 11/25/24 11:56 11/25/24 11:56 11/25/24 11:56 11/25/24 11:56 Narrative Exam General: No acute distress, well nourished, AAO x3, mild tremors hands Eye: PERRL, EOMI, normal conjunctiva, no scleral icterus HENT: Normocephalic, atraumatic, hearing intact to conversation at normal volume, moist oral mucosa Neck: Supple, non-tender, no JVD, no lymphadenopathy Lungs: Non-labored respirations, symmetric chest rise, Clear to auscultate bilaterally, No wheezing, rhonchi, crackles Heart: Peripheral pulses intact bilaterally, Regular Rate and Rhythm. Abdomen: Soft, non-distended, no palpable masses, tenderness in all 4 quadrants on palpation. Musculoskeletal: Tenderness to palpation over the vertebral bodies from cervical to thoracic. Normal range of motion and strength, No cyanosis or edema, No visible joint swelling Skin: Skin is warm, dry, maculopapular rash in both forearms. Psychiatric: Cooperative, appropriate mood and affect, Awake and alert, not agitated Neuro: Cranial nerves II-XII grossly intact. Strength 5/5 throughout. Sensations intact to light touch. Objective Labs 11/26/24 04:23 11/26/24 04:23 Labs: Laboratory Results - last 24 hr 11/25/24 04:37 WBC 3.8 RBC 3.64 L Hgb 10.7 L Hct 33.6 L MCV 92 MCH 29.4 MCHC 31.8 RDW Std Deviation 58.1 H Plt Count 188 D Neut % (Auto) 41 Lymph % (Auto) 35 [place] % (Auto) 20 H Eos % (Auto) 3 Baso % (Auto) 1 Neut # (Auto) 1.5 L Lymph # (Auto) 1.3 [place] # (Auto) 0.8 Eos # (Auto) 0.1 Baso # (Auto) 0.0 Immature Gran # (Auto) 0.01 H Absolute Nucleated RBC 0.00 Immature Gran % 0 Nucleated RBC % 0 Sodium 140 Potassium 3.8 Chloride 102 Carbon Dioxide 24.9 Anion Gap 13 BUN 6 L Creatinine 0.9 Estim Creat Clear Calc 100.4 eGFR > 60 BUN/Creatinine Ratio 7 L Glucose 90 Calculated Osmolality 277 Calcium 9.4 Corrected Calcium 9.4 Total Bilirubin 0.4 AST 189 H ALT 151 H Alkaline Phosphatase 180 H Total Protein 6.9 Albumin 4.5 Globulin 2.4 Albumin/Globulin Ratio 1.9 Quality Measures Quality Measures VTE prophylaxis (SCds) Assessment & Plan Assessment Current Active Medications: Generic Name Dose Route Start Last Admin Trade Name Freq PRN Reason Stop Dose Admin Acetaminophen 650 mg 11/22/24 08:49 11/25/24 09:46 Acetaminophen 325 Mg Tablet PO 12/17/24 13:42 650 mg Q6H PRN Administration PAIN 1-3 OR FEVER > 101 Protocol Bisacodyl 10 mg 11/17/24 13:37 Bisacodyl 5 Mg Tabec PO 12/17/24 13:36 QDAY PRN CONSTIPATION Protocol Dextrose 25 ml 11/17/24 16:01 Dextrose 50%-Water Inj 50 Ml Syringe IV 12/17/24 16:00 Q15MIN PRN BG 50-70 responsive npo pt Dextrose 50 ml 11/17/24 16:01 Dextrose 50%-Water Inj 50 Ml Syringe IV 12/17/24 16:00 Q15MIN PRN BG <50 OR BG <70 & pt unresponsive Enoxaparin Sodium 40 mg 11/20/24 12:15 11/25/24 09:14 Enoxaparin Sod Inj 40 Mg/0.4 Ml Syringe SC 12/04/24 12:14 40 mg QDAY APOORVA Administration Folic Acid 1 mg 11/20/24 09:00 11/25/24 09:14 Folic Acid 1 Mg Tablet PO 12/20/24 08:59 1 mg QDAY APOORVA Administration Gabapentin 100 mg 11/20/24 14:00 11/25/24 06:24 Gabapentin 100 Mg Capsule PO 12/20/24 13:59 Not Given TID APOORVA Glucagon 1 mg 11/17/24 16:01 Glucagon Inj 1 Mg Vial IM Q15MIN PRN BG <70, and no IV access Ketorolac Tromethamine 10 mg 11/25/24 12:10 11/25/24 13:05 Ketorolac 10 Mg Tablet PO 11/27/24 17:34 10 mg Q6HR PRN Administration PAIN SCALE 4-6 (Moderate Lidocaine 1 patch 11/24/24 11:16 Lidocaine 5% 1 Patch TOP 12/24/24 11:15 UD PRN PAIN Lorazepam 2 mg 11/22/24 08:30 Lorazepam 2 Mg/Ml Vial IVP 11/27/24 08:29 Q2H PRN CIWA SCORE 20-25 Lorazepam 0.5 mg 11/22/24 08:32 11/24/24 16:22 Lorazepam 2 Mg/Ml Vial IVP 11/27/24 08:31 0.5 mg Q2H PRN Administration CIWA SCORE 8-13 Lorazepam 1 mg 11/22/24 08:33 11/23/24 19:20 Lorazepam 2 Mg/Ml Vial IVP 11/27/24 08:32 1 mg Q2H PRN Administration CIWA SCORE 14-19 Pantoprazole Sodium 40 mg 11/18/24 09:00 11/25/24 09:14 Pantoprazole 40 Mg Tablet PO 12/18/24 08:59 40 mg BID APOORVA Administration Prochlorperazine Maleate 5 mg 11/19/24 10:00 Prochlorperazine Maleate 5 Mg Tablet PO 12/19/24 09:59 Q6HR PRN NAUSEA OR VOMITING Sennosides 1 tab 11/18/24 09:00 11/25/24 09:14 Senna Tablet PO 12/18/24 08:59 1 tab QDAY APOORVA Administration Protocol Thiamine HCl 100 mg 11/20/24 09:00 11/25/24 09:14 Thiamine 100 Mg Tablet PO 12/20/24 08:59 100 mg QDAY APOORVA Administration Zinc Acetate/Diphenhydramine 0 gm 11/17/24 18:27 11/22/24 14:35 Diphenhydramine/Zn Acet 2% Cr 30 Gm Tube TOP 12/17/24 18:26 1 applicatio Q6HR PRN Administration RASH Zolpidem Tartrate 5 mg 11/22/24 21:00 11/24/24 21:34 Zolpidem 5 Mg Tablet PO 12/22/24 20:59 5 mg HS APOORVA Administration Plan 29-year-old male with alcohol use disorder and cirrhosis admitted for severe alcohol withdrawal after developing symptoms in the ED post-psychiatric clearance, requiring ICU upgrade for CIWA score of 21. Patient has been downgraded to telemetry on 11/18/2024. #Alcohol withdrawal #Alcohol use disorder First CIWA on admission: 28 at 12:43 on 11/17/2024, with tremors, nausea, severe anxiety, restlessness, headache, tactile hallucination. Last drink was ~40 ounces of beer on 11/16 at noon and EtOH leel of 394 on ED admission. Withdrawl s/s started 17hrs after ED admission Plan: -Continue CIWA protocol. Diazepam prn for symptom control. -Stopped Librium -Thiamine 100mg qd -Folic acid 1mg qd -Hypoglycemia protocol #Back pain R/O abscess Patient feel from incl[place] hill and hurt back prior to ED presentation Spinal tenderness T+L spine -Bledsoe 5 q6h PRN -PT consult, recommended home health - MRI cervical + thoracic ordered to r/o abscess #Transaminitis Likely 2/2 to benzodiazipine use Plan - Stopped Librium - Monitor with AM labs #History of cirrhosis #History of esophageal varices (Grade I) CT abd/pelvis 09/02/2024: cirrhosis. EGD 11/02/2024: Grade I esophageal varices. Plan: -On [facility] protocol - Monitor for signs of decompensated liver disease (worsening LFTs, ascites, encephalopathy) #GI bleed, ruled out #Anemia -One episode of hematemesis. -On admission, Hgb: 10.7 Plan: -GI consulted, Recommendation appreciated -IV pantoprazole bid -Consider iron studies, B12, and folate levels if hemoglobin trends downward. -Transfuse if Hgb < 7 (current Hgb 11.4) or symptomatic. #Insomnia -Ambien 5mg qHS #R Knee pain, resolved R Knee XR 11/20: no fractures Plan - PRN analgesia #Generalized abdominal pain, resolved -Patient tender in all 4 quadrants. -Likely due to alcohol withdrawal. -CT abd/pelvis (11/17/2024): Liver is irregular in contour, Thickening of the gastric mucosa. Cholelithiasis, no gallbladder wall thickening.Negative for pancreatitis. No renal or ureteral calculi, no hydronephrosis No bowel obstruction or diverticulitis Normal appendix, Bladder intact, Osseous structures intact. Plan: -Acetaminophen prn -Toradol prn #Dermatitis, resolved #Sinus Bradycardia, resolved #GPC Bacteremia, ruled out Patient's blood cultures grew GPC from 11/17, staph appearing from both sets but only 1 bottle each. Repeat BCx 11/19 neg after 48hrs Cardio assessed 11/25 and ruled out need for DANO. Plan -IV vancomycin stopped (11/19-11/22) Health Maintenance Disposition: MedSurg Diet: Regular diet GI prophylaxis: Pantoprazole 40mg po bid DVT prophylaxis: SCD Code:FULL Case discussed with my attending Dr. Galaviz, and senior resident, Dr. Tanya Purdy MD PGY-1 Attending Provider Attestation/Addendum I, Julianna Galaviz, , attest that I was physically present for the louise portions of the service and evaluated the patient with the resident and I reviewed and discussed the case with the resident and agree with the resident's findings and plans of care as documented above # Acute alcohol withdrawal #Chronic alcohol abuse #GPC contamination, bacteremia less likely #Back pain 2/2 mechanical fall #Cirrhosis #Esophageal varices #Transaminitis Patient is a 29 year old male with Pmhx of alcohol use, alcohol withdrawal, cirrhosis and esophageal varices who was brought to ED for evaluation of SI. Patient has history of chronic alcohol use and was subsequently admitted to ICU due to alcohol withdrawals. Patient has since been transferred to the floors and weaned off chlorodiazepoxide. Repeat bcx negative, initial GPC noted on initial cultures likely contamination. No DANO needed at this time per cardiology. CIWA score is currently 0. He continues to complain of pain that appears to be scattered along his spine. There is point tenderness at C7 and T7 area.? CT of cervical and thoracic spine does not show any fracture or disc narrowing. Patient denies any saddle anesthesia, b/l LE numbness, loss of bowel or bladder control. Will order MRI due to patient?s persistent complaints of pain to r/o epidural abscess. If negative, patient may be able to be discharged home. Will need crisis evaluation upon discharge
[2024-11-25] MEDS: GABAPENTIN 100 MG CAPSULE PO ×2 (13:32→21:39)
--- NOTE | 2024-11-25 17:29 | PD.IMPROG ---
Documentation for date of: 11/25/24 Subjective Subjective Interval history: Patient evaluated More alert and oriented Hemoglobin hematocrit 10.7 and 33.6 slight drop Exam Vital Signs Temp Pulse Resp BP Pulse Ox O2 Del Method 97.2 F 51 L 18 125/69 96 Room Air 11/25/24 16:00 11/25/24 16:00 11/25/24 16:00 11/25/24 16:00 11/25/24 16:00 11/25/24 16:00 Objective Labs 11/25/24 04:37 11/25/24 04:37 Labs: Laboratory Results - last 24 hr 11/25/24 04:37 WBC 3.8 RBC 3.64 L Hgb 10.7 L Hct 33.6 L MCV 92 MCH 29.4 MCHC 31.8 RDW Std Deviation 58.1 H Plt Count 188 D Neut % (Auto) 41 Lymph % (Auto) 35 [place] % (Auto) 20 H Eos % (Auto) 3 Baso % (Auto) 1 Neut # (Auto) 1.5 L Lymph # (Auto) 1.3 [place] # (Auto) 0.8 Eos # (Auto) 0.1 Baso # (Auto) 0.0 Immature Gran # (Auto) 0.01 H Absolute Nucleated RBC 0.00 Immature Gran % 0 Nucleated RBC % 0 Sodium 140 Potassium 3.8 Chloride 102 Carbon Dioxide 24.9 Anion Gap 13 BUN 6 L Creatinine 0.9 Estim Creat Clear Calc 100.4 eGFR > 60 BUN/Creatinine Ratio 7 L Glucose 90 Calculated Osmolality 277 Calcium 9.4 Corrected Calcium 9.4 Total Bilirubin 0.4 AST 189 H ALT 151 H Alkaline Phosphatase 180 H Total Protein 6.9 Albumin 4.5 Globulin 2.4 Albumin/Globulin Ratio 1.9 Impressions Impression: Chronic liver disease secondary to alcohol Recurrent bouts of GI bleeding due to advanced portal hypertension GPC bacteremia Continue current management Assessment & Plan A&P Narrative coag neg staph in bc in ED c/o fever cirrhosis with normal inr and plts but low counts. hx of heavy etoh use noted role of abx unclear to me. ok to get a trans thoracic echo and if neg then stop and re evaluate rx we will see briefly tuesday am he wants something for anxiety. but may have been the reason he was drinking etoh will see again prn Time Spent With Patient Time: Total time spent is greater than 50% in coordination of care (as documented) at patient's floor/unit and/or counseling patient:
[2024-11-25] MEDS: PROCHLORPERAZINE MALEATE 5 MG TABLET PO (19:53)
[2024-11-25] MEDS: ZOLPIDEM 5 MG TABLET PO (21:39)
[2024-11-26] VITALS: BP 98/62; PULSE 69; RESP 17; TEMP 36.2; O2SAT 99
[2024-11-26] MEDS: KETOROLAC 10 MG TABLET PO ×4 (02:08→22:45)
[2024-11-26 04:00] VITALS: BP 98/56; PULSE 65; RESP 16; TEMP 36.3; O2SAT 99
[2024-11-26 05:50] VITALS: BMI 26.6
[2024-11-26 06:15] LABS: Basophils # (Auto) 0.1 Thou/mm3 (0.0-0.2); Basophils % (Auto) 1 % (0-2.5); Eosinophils # (Auto) 0.1 Thou/mm3 (0.0-0.5); Eosinophils % (Auto) 3 % (0-10); Hematocrit 32.9 % (41.0-53.0); Hemoglobin 11.2 g/dL (13.5-16.0); Immature Granulocytes Auto 0.01 Thou/mm3 (0.00-0.00); Lymphocytes # (Auto) 1.3 Thou/mm3 (1.0-4.8); Lymphocytes % (Auto) 29 % (10-50); Mean Corpuscular HGB Conc 34.0 g/dl (31.0-37.0); Mean Corpuscular Hemoglobin 30.4 pg (25.0-35.0); Mean Corpuscular Volume 89 fL (80-100); Monocytes # (Auto) 1.0 Thou/mm3 (0.0-0.8); Monocytes % (Auto) 21 % (0-12); Neutrophils # (Auto) 2.2 Thou/mm3 (1.8-7.7); Neutrophils % (Auto) 47 % (37-80); Nucleated Red Blood Cell # 0.00 Thou/mm3 (0.00-0.00); Nucleated Red Blood Cell % 0 /100 WBC (0); Platelet Count 229 Thou/mm3 (140-440); RDW Standard Deviation 56.2 fL (35.1-43.9); Red Blood Count 3.69 Miln/mm3 (4.50-5.90); White Blood Count 4.7 Thou/mm3 (3.8-10.6)
[2024-11-26] MEDS: GABAPENTIN 100 MG CAPSULE PO ×3 (06:23→21:22)
[2024-11-26 06:50] LABS: Alanine Aminotransferase 133 U/L (10-49); Albumin, Serum 4.3 gm/dL (3.5-5.0); Albumin/Globulin Ratio 1.8 (1.2-2.2); Alkaline Phosphatase 168 U/L (46-116); Anion Gap 12 (7-16); Aspartate Amino Transferase 124 U/L (0-34); BUN/Creatinine Ratio 8 Ratio (12-20); Bilirubin,Total 0.4 mg/dL (0.3-1.2); Blood Urea Nitrogen 7 mg/dL (9-23); Calcium 9.3 mg/dL (8.3-10.6); Calcium (Corrected) 9.3 mg/dL (8.5-10.1); Carbon Dioxide 26.2 mMol/L (20.0-31.0); Chloride 103 mMol/L (98-107); Creatinine (Component) 0.9 mg/dL (0.6-1.3); Estimated Creatinine Clearance 100.4 mL/min (>60); Globulin 2.4 gm/dL (2.3-3.5); Glucose 82 mg/dL (74-106); Osmolality,Calculated 278 (275-295); Potassium 3.7 mMol/L (3.4-5.1); Sodium 141 mMol/L (136-145); Total Protein 6.7 gm/dL (5.7-8.2); eGFR > 60 See Note
[2024-11-26 08:00] VITALS: BP 108/69; PULSE 57; PULSE 65; RESP 16; TEMP 36.2; O2SAT 100
[2024-11-26] MEDS: PANTOPRAZOLE 40 MG TABLET PO ×2 (09:02→20:30)
[2024-11-26] MEDS: ENOXAPARIN SOD INJ 40 MG/0.4 ML SYRINGE SC (09:02)
[2024-11-26] MEDS: THIAMINE 100 MG TABLET PO (09:02)
[2024-11-26] MEDS: FOLIC ACID 1 MG TABLET PO (09:02)
--- NOTE | 2024-11-26 09:29 | PC.SS ---
Follow up note: Pt will require a [facility] Evaluation at d/c. Pt is d/c for today with HH.
--- NOTE | 2024-11-26 09:32 | XR_ITS ---
EXAMINATION: MRI thoracic spine with intravenous contrast TECHNIQUE: Multiple axial sagittal MR thoracic spine images post intravenous administration of 13 cc gadolinium Date and time: November 26, 2024, 1653 hours INDICATIONS: Diagnosis cirrhosis, esophageal varices, neck trauma 1 week ago with bacteremia FINDINGS: Adequate limited thoracic vertebral bodies No abnormal osseous enhancement No abnormal enhancing epidural abscess, no impingement upon the thoracic cord No localized enlargement of the thoracic cord IMPRESSION: Satisfactory alignment thoracic vertebral bodies No abnormal enhancing epidural abscess No impingement upon the thoracic cord
--- NOTE | 2024-11-26 09:33 | XR_ITS ---
EXAMINATION: MRI cervical spine with intravenous contrast TECHNIQUE: Multiple axial sagittal MRI cervical spine images post intravenous administration 13 cc gadolinium Date and time: November 26, 2024, 1653 hours INDICATIONS: Neck trauma 1 week ago, bacteremia, neck tenderness FINDINGS: Adequate alignment cervical vertebral bodies No cervical fracture No abnormal osseous enhancement Abnormal soft tissue enhancement prevertebral centered at the C7 vertebral body, sagittal image 9, measuring up to 15 mm in thickness, axial image 3 demonstrates the soft tissue abnormal enhancement 13 mm mediolateral dimension No abnormal enhancement anterior to the cervical cord and no impingement upon the cervical cord IMPRESSION: Abnormal soft tissue enhancement centered anterior to the C7 vertebral body measuring up to 15 mm in thickness most consistent with soft tissue abscess, clinical correlation advised
--- NOTE | 2024-11-26 10:04 | PC.CC ---
[id number] contacted Team B and asked for an update on pt. The current wait is that pt is pending a MRI of the spine. Once medically cleared, the residents will contact ASW for a MH eval.
--- NOTE | 2024-11-26 10:13 | PC.SS ---
Update: Patient will require crisis evaluation upon medical clearance. Plan will be to d/c patient home with home health services.
--- NOTE | 2024-11-26 11:02 | PD.RESDS ---
Planned Discharge Date 11/26/24 DS: Providers Provider Date of admission: 11/17/24 13:53 Primary care physician: Balwinder Humphrey MD Admitting Provider: Dieudnone Purdy MD Attending Provider on Admission: Julianna Galaviz DO Consults: 11/17/24 20:20 Consult to Gastroenterology Routine Comment: One episode of bloody vomit Consulting Provider: Virgilio Tello 11/20/24 08:29 Consult to Infectious Diseases Routine Comment: ?GPC bacterimia Consulting Provider: Vladimir Gates 11/20/24 13:48 Referral Physical Therapy Routine Comment: Physician Instructions: 11/24/24 15:15 Consult to Cardiology Routine Comment: Had GPC in blood Consulting Provider: Carter Fabian Instructions: request for DANO Attending Provider on DC: Dieudonne Purdy MD Discharging Provider: Dieudonne Purdy MD Hospital Course Hospital Course Hospital course: Patient evaluated More alert and oriented Hemoglobin hematocrit 10.7 and 33.6 slight drop Time Spent with Patient Time attestation: Total time spent providing and/or coordinating discharge services: Exam Vital Signs Temp Pulse Resp BP Pulse Ox O2 Del Method 97.1 F 65 16 108/69 100 Room Air 11/26/24 08:00 11/26/24 08:00 11/26/24 08:00 11/26/24 08:00 11/26/24 08:00 11/26/24 08:00 Discharge Plan Plan Patient Disposition: Home w/HOME HEALTH Care Plan Goals: Continue to take buspirone 7.5 mg tablet by mouth twice a day Take folic acid 1 mg tablet and vitamin B1 100 mg tablet once a day each for nutritional support Take naltrexone 50 mg tablet by mouth once a day for alcohol use disorder Continue taking Protonix 40 mg tablet daily Please follow-up with gastroenterology as you have history of esophageal varices Please follow-up with your PCP within 1 week of discharge and ask your PCP to refer you to an alcohol use disorder program, if you do not have a PCP please follow-up at the [facility] [address] [place] [address] If your symptoms worsen or if you develop new chest pain, shortness of breath, withdrawal symptoms or bleeding from mouth or anus - please come back to the ED immediately Prescriptions/Referrals Prescriptions/Med Rec: New buspirone 7.5 mg tablet 7.5 mg PO BID Qty: 20 0RF naltrexone 50 mg tablet 50 mg PO QDAY 30 Days Qty: 30 0RF thiamine mononitrate (vit B1) 100 mg Tablet 100 mg PO QDAY 30 Days Qty: 30 0RF folic acid 1 mg Tablet 1 mg PO QDAY 30 Days Qty: 30 0RF Continued pantoprazole [Protonix] 40 mg tablet,delayed release (DR/EC) 40 mg PO DAILY 30 Days Qty: 30 3RF Rx Instructions: Take one tablet by mouth twice a day Referrals: Balwinder Humphrey MD [Primary Care Provider, Family Practice] Patient/Caregiver Discharge Instructions Education Materials: Alcohol Withdrawal: What to Expect, Addiction Ask These Questions, Addiction: Getting Help Print Language: Ivorian Stand Alone Forms: [facility] Award Info., Patient Portal Info Letter
[2024-11-26 12:00] VITALS: BP 114/61; PULSE 68; PULSE 73; RESP 17; TEMP 36.4; O2SAT 96
--- NOTE | 2024-11-26 14:00 | PC.PT ---
Patient is now xI with bed mobility, transfers, and ambulation with no AD. Patient will be D/C from PT services 03/11 he is now xI.
--- NOTE | 2024-11-26 15:36 | PC.SS ---
Rounding Note: MRI of the spine is pending. Patient is pending medical clearance for MH evaluation.
--- NOTE | 2024-11-26 15:42 | ESPR_ITS ---
Documentation for date of: 11/26/24 Subjective Subjective Interval history: Hemoglobin hematocrit 11.2 and 32.9 Relatively stable Exam Vital Signs Temp Pulse Resp BP Pulse Ox O2 Del Method 97.5 F 68 17 114/61 96 Room Air 11/26/24 12:00 11/26/24 12:00 11/26/24 12:00 11/26/24 12:00 11/26/24 12:00 11/26/24 12:00 Objective Labs 11/26/24 04:23 11/26/24 04:23 Labs: Laboratory Results - last 24 hr 11/26/24 04:23 WBC 4.7 RBC 3.69 L Hgb 11.2 L Hct 32.9 L MCV 89 MCH 30.4 MCHC 34.0 RDW Std Deviation 56.2 H Plt Count 229 D Neut % (Auto) 47 Lymph % (Auto) 29 [place] % (Auto) 21 H Eos % (Auto) 3 Baso % (Auto) 1 Neut # (Auto) 2.2 Lymph # (Auto) 1.3 [place] # (Auto) 1.0 H Eos # (Auto) 0.1 Baso # (Auto) 0.1 Immature Gran # (Auto) 0.01 H Absolute Nucleated RBC 0.00 Immature Gran % 0 Nucleated RBC % 0 Sodium 141 Potassium 3.7 Chloride 103 Carbon Dioxide 26.2 Anion Gap 12 BUN 7 L Creatinine 0.9 Estim Creat Clear Calc 100.4 eGFR > 60 BUN/Creatinine Ratio 8 L Glucose 82 Calculated Osmolality 278 Calcium 9.3 Corrected Calcium 9.3 Total Bilirubin 0.4 AST 124 H ALT 133 H Alkaline Phosphatase 168 H Total Protein 6.7 Albumin 4.3 Globulin 2.4 Albumin/Globulin Ratio 1.8 Impressions Impression: Upper GI bleed in the setting of esophageal varices and hypertensive portal gastropathy stable Continue to monitor hemoglobin hematocrit Chronic liver disease secondary to alcohol Assessment & Plan A&P Narrative coag neg staph in bc in ED c/o fever cirrhosis with normal inr and plts but low counts. hx of heavy etoh use noted role of abx unclear to me. ok to get a trans thoracic echo and if neg then stop and re evaluate rx we will see briefly tuesday am he wants something for anxiety. but may have been the reason he was drinking etoh will see again prn Time Spent With Patient Time: Total time spent is greater than 50% in coordination of care (as documented) at patient's floor/unit and/or counseling patient:
--- NOTE | 2024-11-26 15:49 | PD.RESPRO ---
Documentation for date of: 11/26/24 Subjective Subjective Interval history: Patient seen at bedside. No acute overnight events. Tolerating meals, no nausea/vomiting. Ongoing back pain, MRI cervical and thoracic spine to be done this evening to r/o abcess. Exam Vital Signs Temp Pulse Resp BP Pulse Ox O2 Del Method 97.5 F 68 17 114/61 96 Room Air 11/26/24 12:00 11/26/24 12:00 11/26/24 12:00 11/26/24 12:00 11/26/24 12:00 11/26/24 12:00 Narrative Exam General: No acute distress, well nourished, AAO x3, mild tremors hands Eye: PERRL, EOMI, normal conjunctiva, no scleral icterus HENT: Normocephalic, atraumatic, hearing intact to conversation at normal volume, moist oral mucosa Neck: Supple, non-tender, no JVD, no lymphadenopathy Lungs: Non-labored respirations, symmetric chest rise, Clear to auscultate bilaterally, No wheezing, rhonchi, crackles Heart: Peripheral pulses intact bilaterally, Regular Rate and Rhythm. Abdomen: Soft, non-distended, no palpable masses, tenderness in all 4 quadrants on palpation. Musculoskeletal: Tenderness to palpation over the vertebral bodies from cervical to thoracic. Normal range of motion and strength, No cyanosis or edema, No visible joint swelling Skin: Skin is warm, dry, maculopapular rash in both forearms. Psychiatric: Cooperative, appropriate mood and affect, Awake and alert, not agitated Neuro: Cranial nerves II-XII grossly intact. Strength 5/5 throughout. Sensations intact to light touch. Objective Labs 11/26/24 04:23 11/26/24 04:23 Labs: Laboratory Results - last 24 hr 11/26/24 04:23 WBC 4.7 RBC 3.69 L Hgb 11.2 L Hct 32.9 L MCV 89 MCH 30.4 MCHC 34.0 RDW Std Deviation 56.2 H Plt Count 229 D Neut % (Auto) 47 Lymph % (Auto) 29 [place] % (Auto) 21 H Eos % (Auto) 3 Baso % (Auto) 1 Neut # (Auto) 2.2 Lymph # (Auto) 1.3 [place] # (Auto) 1.0 H Eos # (Auto) 0.1 Baso # (Auto) 0.1 Immature Gran # (Auto) 0.01 H Absolute Nucleated RBC 0.00 Immature Gran % 0 Nucleated RBC % 0 Sodium 141 Potassium 3.7 Chloride 103 Carbon Dioxide 26.2 Anion Gap 12 BUN 7 L Creatinine 0.9 Estim Creat Clear Calc 100.4 eGFR > 60 BUN/Creatinine Ratio 8 L Glucose 82 Calculated Osmolality 278 Calcium 9.3 Corrected Calcium 9.3 Total Bilirubin 0.4 AST 124 H ALT 133 H Alkaline Phosphatase 168 H Total Protein 6.7 Albumin 4.3 Globulin 2.4 Albumin/Globulin Ratio 1.8 Quality Measures Quality Measures VTE prophylaxis (SCds) Assessment & Plan Assessment Current Active Medications: Generic Name Dose Route Start Last Admin Trade Name Freq PRN Reason Stop Dose Admin Acetaminophen 650 mg 11/22/24 08:49 11/25/24 09:46 Acetaminophen 325 Mg Tablet PO 12/17/24 13:42 650 mg Q6H PRN Administration PAIN 1-3 OR FEVER > 101 Protocol Bisacodyl 10 mg 11/17/24 13:37 Bisacodyl 5 Mg Tabec PO 12/17/24 13:36 QDAY PRN CONSTIPATION Protocol Dextrose 25 ml 11/17/24 16:01 Dextrose 50%-Water Inj 50 Ml Syringe IV 12/17/24 16:00 Q15MIN PRN BG 50-70 responsive npo pt Dextrose 50 ml 11/17/24 16:01 Dextrose 50%-Water Inj 50 Ml Syringe IV 12/17/24 16:00 Q15MIN PRN BG <50 OR BG <70 & pt unresponsive Enoxaparin Sodium 40 mg 11/20/24 12:15 11/26/24 09:02 Enoxaparin Sod Inj 40 Mg/0.4 Ml Syringe SC 12/04/24 12:14 40 mg QDAY APOORVA Administration Folic Acid 1 mg 11/20/24 09:00 11/26/24 09:02 Folic Acid 1 Mg Tablet PO 12/20/24 08:59 1 mg QDAY APOORVA Administration Gabapentin 100 mg 11/20/24 14:00 11/26/24 13:19 Gabapentin 100 Mg Capsule PO 12/20/24 13:59 100 mg TID APOORVA Administration Glucagon 1 mg 11/17/24 16:01 Glucagon Inj 1 Mg Vial IM Q15MIN PRN BG <70, and no IV access Ketorolac Tromethamine 10 mg 11/25/24 12:10 11/26/24 09:57 Ketorolac 10 Mg Tablet PO 11/27/24 17:34 10 mg Q6HR PRN Administration PAIN SCALE 4-6 (Moderate Lidocaine 1 patch 11/24/24 11:16 Lidocaine 5% 1 Patch TOP 12/24/24 11:15 UD PRN PAIN Protocol Lorazepam 2 mg 11/22/24 08:30 Lorazepam 2 Mg/Ml Vial IVP 11/27/24 08:29 Q2H PRN CIWA SCORE 20-25 Lorazepam 0.5 mg 11/22/24 08:32 11/25/24 18:01 Lorazepam 2 Mg/Ml Vial IVP 11/27/24 08:31 0.5 mg Q2H PRN Administration CIWA SCORE 8-13 Lorazepam 1 mg 11/22/24 08:33 11/23/24 19:20 Lorazepam 2 Mg/Ml Vial IVP 11/27/24 08:32 1 mg Q2H PRN Administration CIWA SCORE 14-19 Lorazepam 1 mg 11/26/24 12:00 Lorazepam 0.5 Mg Tablet PO X1 PRN AGITATION Pantoprazole Sodium 40 mg 11/18/24 09:00 11/26/24 09:02 Pantoprazole 40 Mg Tablet PO 12/18/24 08:59 40 mg BID APOORVA Administration Prochlorperazine Maleate 5 mg 11/19/24 10:00 11/25/24 19:53 Prochlorperazine Maleate 5 Mg Tablet PO 12/19/24 09:59 5 mg Q6HR PRN Administration NAUSEA OR VOMITING Sennosides 1 tab 11/18/24 09:00 11/26/24 09:03 Senna Tablet PO 12/18/24 08:59 Not Given QDAY APOORVA Protocol Thiamine HCl 100 mg 11/20/24 09:00 11/26/24 09:02 Thiamine 100 Mg Tablet PO 12/20/24 08:59 100 mg QDAY APOORVA Administration Zinc Acetate/Diphenhydramine 0 gm 11/17/24 18:27 11/22/24 14:35 Diphenhydramine/Zn Acet 2% Cr 30 Gm Tube TOP 12/17/24 18:26 1 applicatio Q6HR PRN Administration RASH Zolpidem Tartrate 5 mg 11/22/24 21:00 11/25/24 21:39 Zolpidem 5 Mg Tablet PO 12/22/24 20:59 5 mg HS APOORVA Administration Plan 29-year-old male with alcohol use disorder and cirrhosis admitted for severe alcohol withdrawal after developing symptoms in the ED post-psychiatric clearance, requiring ICU upgrade for CIWA score of 21. Patient has been downgraded to telemetry on 11/18/2024. #Alcohol withdrawal #Alcohol use disorder First CIWA on admission: 26 at 12:43 on 11/17/2024, with tremors, nausea, severe anxiety, restlessness, headache, tactile hallucination. Last drink was ~40 ounces of beer on 11/16 at noon and EtOH leel of 394 on ED admission. Withdrawl s/s started 17hrs after ED admission Plan: -Continue CIWA protocol. Diazepam prn for symptom control. -Thiamine 100mg qd -Folic acid 1mg qd -Hypoglycemia protocol #Back pain R/O abscess Patient feel from incline hill and hurt back prior to ED presentation Spinal tenderness cervical + thoracic spine Plan - [place] 5 q6h PRN - PT consult, recommended home health - MRI cervical + thoracic ordered to r/o abscess #Transaminitis Likely 2/2 to benzodiazipine use Plan - Stopped Librium - Monitor with AM labs #History of cirrhosis #History of esophageal varices (Grade I) CT abd/pelvis 09/02/2024: cirrhosis. EGD 11/02/2024: Grade I esophageal varices. Plan: -On CIWA protocol - Monitor for signs of decompensated liver disease (worsening LFTs, ascites, encephalopathy) #GI bleed, ruled out #Anemia -One episode of hematemesis. -On admission, Hgb: 10.7 Plan: -GI consulted, Recommendation appreciated -IV pantoprazole bid -Consider iron studies, B12, and folate levels if hemoglobin trends downward. -Transfuse if Hgb < 7 (current Hgb 11.4) or symptomatic. #Insomnia -Ambien 5mg qHS #R Knee pain, resolved R Knee XR 11/20: no fractures Plan - PRN analgesia #Generalized abdominal pain, resolved -Patient tender in all 4 quadrants. -Likely due to alcohol withdrawal. -CT abd/pelvis (11/17/2024): Liver is irregular in contour, Thickening of the gastric mucosa. Cholelithiasis, no gallbladder wall thickening.Negative for pancreatitis. No renal or ureteral calculi, no hydronephrosis No bowel obstruction or diverticulitis Normal appendix, Bladder intact, Osseous structures intact. Plan: -Acetaminophen prn -Toradol prn #Dermatitis, resolved #Sinus Bradycardia, resolved #GPC Bacteremia, ruled out Patient's blood cultures grew GPC from 11/17, staph appearing from both sets but only 1 bottle each. Repeat BCx 11/19 neg after 48hrs Cardio assessed 11/25 and ruled out need for DANO. Plan -IV vancomycin stopped (11/19-11/22) Health Maintenance Disposition: MedSurg Diet: Regular diet GI prophylaxis: Pantoprazole 40mg po bid DVT prophylaxis: SCD Code:FULL Case discussed with my attending Dr. Galaviz, and senior resident, Dr. Tanya Purdy MD PGY-1 Attending Provider Attestation/Addendum I, Julianna Galaviz DO, attest that I was physically present for the louise portions of the service and evaluated the patient with the resident and I reviewed and discussed the case with the resident and agree with the resident's findings and plans of care as documented above # Acute alcohol withdrawal #Chronic alcohol abuse #GPC bacteremia ruled out. Contamination more likely #Back pain 2/2 mechanical fall #Cirrhosis #Esophageal varices #Transaminitis Patient is a 29 year old male with Pmhx of alcohol use, alcohol withdrawal, cirrhosis and esophageal varices who was brought to ED for evaluation of SI. Patient has history of chronic alcohol use and was subsequently admitted to ICU due to alcohol withdrawals. Patient has since been transferred to the floors and weaned off chlorodiazepoxide. Patient continues to complain of back pain. Pending MRI with contrast to rule out any abscesses. Patient states he was otherwise able to ambulate in hallway with PT. He states he is feeling better today. Will f/u with MRI results. If negative, anticipate DC wihtin next 24h
[2024-11-26 16:00] VITALS: BP 105/60; PULSE 66; PULSE 67; RESP 16; TEMP 36.5; O2SAT 97
[2024-11-26 20:00] VITALS: BP 117/74; PULSE 82; RESP 12; TEMP 36.3; O2SAT 96
[2024-11-26] MEDS: ZOLPIDEM 5 MG TABLET PO (21:22)
[2024-11-26] MEDS: LIDOCAINE 5% 1 PATCH TOP (21:30)
[2024-11-26] MEDS: ACETAMINOPHEN 325 MG TABLET 650 MG PO (21:31)
[2024-11-27] VITALS: BP 102/53; PULSE 73; RESP 18; TEMP 36.3; O2SAT 94
[2024-11-27 03:58] VITALS: BP 99/54; PULSE 56; RESP 19; TEMP 36.2; O2SAT 99
[2024-11-27] MEDS: GABAPENTIN 100 MG CAPSULE PO ×3 (06:21→21:44)
[2024-11-27 07:06] LABS: Basophils # (Auto) 0.1 Thou/mm3 (0.0-0.2); Basophils % (Auto) 1 % (0-2.5); Eosinophils # (Auto) 0.1 Thou/mm3 (0.0-0.5); Eosinophils % (Auto) 4 % (0-10); Hematocrit 33.8 % (41.0-53.0); Hemoglobin 10.9 g/dL (13.5-16.0); Immature Granulocytes Auto 0.01 Thou/mm3 (0.00-0.00); Lymphocytes # (Auto) 1.2 Thou/mm3 (1.0-4.8); Lymphocytes % (Auto) 34 % (10-50); Mean Corpuscular HGB Conc 32.2 g/dl (31.0-37.0); Mean Corpuscular Hemoglobin 29.2 pg (25.0-35.0); Mean Corpuscular Volume 91 fL (80-100); Monocytes # (Auto) 0.8 Thou/mm3 (0.0-0.8); Monocytes % (Auto) 22 % (0-12); Neutrophils # (Auto) 1.4 Thou/mm3 (1.8-7.7); Neutrophils % (Auto) 39 % (37-80); Nucleated Red Blood Cell # 0.00 Thou/mm3 (0.00-0.00); Nucleated Red Blood Cell % 0 /100 WBC (0); Platelet Count 230 Thou/mm3 (140-440); RDW Standard Deviation 57.6 fL (35.1-43.9); Red Blood Count 3.73 Miln/mm3 (4.50-5.90); White Blood Count 3.5 Thou/mm3 (3.8-10.6)
[2024-11-27 07:25] LABS: Alanine Aminotransferase 111 U/L (10-49); Albumin, Serum 4.2 gm/dL (3.5-5.0); Albumin/Globulin Ratio 1.8 (1.2-2.2); Alkaline Phosphatase 152 U/L (46-116); Anion Gap 9 (7-16); Aspartate Amino Transferase 92 U/L (0-34); BUN/Creatinine Ratio 7 Ratio (12-20); Bilirubin,Total 0.3 mg/dL (0.3-1.2); Blood Urea Nitrogen 6 mg/dL (9-23); Calcium 9.1 mg/dL (8.3-10.6); Calcium (Corrected) 9.1 mg/dL (8.5-10.1); Carbon Dioxide 27.2 mMol/L (20.0-31.0); Chloride 105 mMol/L (98-107); Creatinine (Component) 0.9 mg/dL (0.6-1.3); Estimated Creatinine Clearance 100.9 mL/min (>60); Globulin 2.3 gm/dL (2.3-3.5); Glucose 98 mg/dL (74-106); Osmolality,Calculated 278 (275-295); Potassium 4.1 mMol/L (3.4-5.1); Sodium 141 mMol/L (136-145); Total Protein 6.5 gm/dL (5.7-8.2); eGFR > 60 See Note
[2024-11-27 08:00] VITALS: BP 128/73; PULSE 64; RESP 18; TEMP 36.5; O2SAT 99
[2024-11-27] MEDS: PANTOPRAZOLE 40 MG TABLET PO ×2 (09:37→21:44)
[2024-11-27] MEDS: FOLIC ACID 1 MG TABLET PO (09:37)
[2024-11-27] MEDS: THIAMINE 100 MG TABLET PO (09:37)
[2024-11-27] MEDS: PIPER/TAZO INJ 4.5 GM in SODIUM CHLORIDE 0.9% (POP) 100 ML IV (09:37)
[2024-11-27] MEDS: ENOXAPARIN SOD INJ 40 MG/0.4 ML SYRINGE SC (09:38)
--- NOTE | 2024-11-27 10:30 | ESDS_ITS ---
<Statement entered by Carlos Eduardo Orona MD - 11/30/24 17:18> I reviewed above note and agree with findings and plans. I have also personally examined the patient with medicine team and went over assessment and plan with medical team including analytics intern and resident physician. <Statement entered by Beckie Martínez MD - 11/27/24 14:47> Reason for Transfer: This patient requires urgent Neurosurgical evaluation due to the presence of a 1.5 cm soft tissue abscess anterior to the C7 vertebral body, as identified on MRI of the cervical spine. The abscess is thought to be the cause of the patient?s persistent spinal pain. Admission Diagnosis: Chronic alcohol use disorder Alcohol withdrawal syndrome, requiring ICU care Cirrhosis Esophageal varices Positive blood cultures for Staphylococcus hominis Persistent spinal pain with a soft tissue abscess at C7 Hospital Course: The patient was initially admitted for alc withdrawel and was subsequently transferred to the ICU for management of severe alcohol withdrawal. The patient's condition improved significantly with proper management, including the successful weaning of chlordiazepoxide. Blood cultures from 11/17 were positive for Staph hominis but subsequent cultures on 11/19 were negative, indicating that the initial Gram-positive cocci were likely a contamination. A transthoracic echocardiogram was done and did not show any vegetations, and cardiology concluded that a transesophageal echocardio gram was unnecessary. Throughout the hospitalization, the patient continued to experience persistent spinal pain. There were no signs of spinal cord compression; the patient denied saddle anesthesia, bilateral lower extremity numbness, or loss of bowel/bladder control. An MRI of the cervical and thoracic spine with contrast was performed to rule out an epidural abscess. The MRI of the cervical spine revealed a 1.5 cm soft tissue abscess anterior to the C7 vertebral body, which is likely contributing to the patient?s symptoms. Given the need for urgent surgical evaluation, the decision was made to transfer the patient for neurosurgical intervention. Current Medications: Vancomycin (empirically started) Ceftriaxone (empirically started) Condition at Transfer: Spinal abscess identified on MRI Stable from a cardiovascular and respiratory standpoint Improvement in alcohol withdrawal symptoms No evidence of spinal cord compression at this point Awaiting neurosurgical evaluation for potential surgical intervention Plan: Transfer to higher level of facility with neurosurgical services and/or ENT services for further management of abscess Continue Vancomycin and Ceftriaxone until further directed by neurosurgery Monitor for signs of neurological compromise Case was discussed with attending physician Dr. ORONA Planned Discharge Date 11/27/24 DS: Providers Provider Date of admission: 11/17/24 13:53 Primary care physician: Balwinder Humphrey MD Admitting Provider: Julianna Galaviz DO Attending Provider on Admission: Julianna Galaviz DO Consults: 11/17/24 20:20 Consult to Gastroenterology Routine Comment: One episode of bloody vomit Consulting Provider: Virgilio Tello 11/20/24 08:29 Consult to Infectious Diseases Routine Comment: ?GPC bacterimia Consulting Provider: Vladimir Gatse 11/20/24 13:48 Referral Physical Therapy Routine Comment: Physician Instructions: 11/24/24 15:15 Consult to Cardiology Routine Comment: Had GPC in blood Consulting Provider: Carter Fabian Instructions: request for DANO 11/27/24 08:04 Consult to Otolaryngology(Head and Neck) Stat Comment: Consulting Provider: Darrell Walton 11/27/24 10:23 Referral - [employer] Routine Service Needed for Transfer: Neurosurgery Addl Comments:: C7 anterior soft tissue abscess Attending Provider on DC: Carlos Eduardo Orona MD Discharging Provider: Carlos Eduardo Orona MD DS: Diagnosis Problem List Completed Was Problem List Reviewed/Reconciled?: Yes Hospital Course Hospital Course Hospital course: 29-year-old male history of alcohol use and withdrawal, cirrhosis, and esophageal varices. Patient was admitted for alcohol withdrawal. ED course: Initial vitals include temperature 98.3, blood pressure 133/86, pulse 95, respirations 16, 95% on room air. Cervical spine showed no acute fracture, C5- C6 mild to moderate left neural foraminal stenosis. Head CT was negative. Chest x-ray was negative for aspiration pneumonia. CT abdomen showed gastritis pattern, cholelithiasis, negative for cholecystitis. Notable labs include hemoglobin 11.4, creatinine 0.9, magnesium 1.8, AST 57, ALT 49, alkaline ph osphatase 168, total creatinine kinase 289, Pro-Thai 0.05, lipase 44. UA negative. Urine toxicology negative for drugs, positive for alcohol 394.4. Patient received diazepam 10 mg x 1, ibuprofen 800 mg x 1. Patient was transferred to ICU due to high CIWA score of 26. Hospital course: Patient required ICU admission for severe alcohol withdrawal (CIWA 26) and was managed with precedex drip. The patient's clinical status improved significantly following transfer to the floor, having been successfully weaned off chlordiazepoxide. Blood culture from 11/17 was positive for Staph hominis from aerobic bottles, however repeat blood cultures were 11/19 were negative. Transthoracic echo was done and did not show any vegetations. Cardiology determined a Tranesophageal echo was unnecessary. Throughout admission, persistent, scattered spinal pain remained a concern, localized with point tenderness at C7 and T7, despite negative CT imaging of the cervical and thoracic spine for fracture or disc narrowing. There were no signs of spinal cord compression, as the patient denied saddle anesthesia, bilateral lower extremity numbness, or loss of bowel/bladder control. An MRI with contrast of cervical and thoracic spine was done to rule out a potential epidural abscess as the cause of the pain. MRI of cervical spine showed 1.5 cm soft tissue abscess anterior to the C7 vertebral body. Patient requires transfer for urgent OMFS/ENT evaluation. Patient empirically started on Vancomycin and Ceftriaxone. Patient remained afebrile and no leukocytosis throughout hospital admission. Discharge instructions: Continue to take buspirone 7.5 mg tablet by mouth twice a day Take folic acid 1 mg tablet and vitamin B1 100 mg tablet once a day each for nut ritional support Take naltrexone 50 mg tablet by mouth once a day for alcohol use disorder Continue taking Protonix 40 mg tablet daily Please follow-up with gastroenterology as you have history of esophageal varices Please follow-up with your PCP within 1 week of discharge and ask your PCP to refer you to an alcohol use disorder program, if you do not have a PCP please follow-up at the [facility] [address] [place] [address] If your symptoms worsen or if you develop new chest pain, shortness of breath, withdrawal symptoms or bleeding from mouth or anus - please come back to the ED immediately Admission diagnoses: #MSSA bacteremia #Soft tissue abscess anterior to the C7 vertebral body #History of cirrhosis #History of esophageal varices (Grade I) #Alcohol withdrawal, resolved #Alcohol use disorder Case discussed with my attending Dr. Orona, and senior resident, Dr. Tanya Purdy MD PGY-1 Status at Discharge Overall status at discharge: patient is progressing back to baseline Time Spent with Patient Time attestation: Total time spent providing and/or coordinating discharge services: Time spent: Greater than 30 minutes Exam Vital Signs Temp Pulse Resp BP Pulse Ox O2 Del Method 97.7 F 64 18 128/73 99 Room Air 11/27/24 08:00 11/27/24 08:00 11/27/24 08:00 11/27/24 08:00 11/27/24 08:00 11/27/24 08:00 Narrative Exam General: No acute distress, well nourished, AAO x3, mild tremors hands Eye: PERRL, EOMI, normal conjunctiva, no scleral icterus HENT: Normocephalic, atraumatic, hearing intact to conversation at normal volume, moist oral mucosa Neck: Supple, non-tender, no JVD, no lymphadenopathy Lungs: Non-labored respirations, symmetric chest rise, Clear to auscultate bilaterally, No wheezing, rhonchi, crackles Heart: Peripheral pulses intact bilaterally, Regular Rate and Rhythm. Abdomen: Soft, non-distended, no palpable masses, tenderness in all 4 quadrants on palpation. Musculoskeletal: Tenderness to palpation over the vertebral bodies from cervical to thoracic. Normal range of motion and strength, No cyanosis or edema, No visible joint swelling Skin: Skin is warm, dry, maculopapular rash in both forearms. Psychiatric: Cooperative, appropriate mood and affect, Awake and alert, not agitated Neuro: Cranial nerves II-XII grossly intact. Strength 5/5 throughout. Sensations intact to light touch. Discharge Plan Plan Patient Disposition: Home w/HOME HEALTH Care Plan Goals: Continue to take buspirone 7.5 mg tablet by mouth twice a day Take folic acid 1 mg tablet and vitamin B1 100 mg tablet once a day each for nutritional support Take naltrexone 50 mg tablet by mouth once a day for alcohol use disorder Continue taking Protonix 40 mg tablet daily Please follow-up with gastroenterology as you have history of esophageal varices Please follow-up with your PCP within 1 week of discharge and ask your PCP to refer you to an alcohol use disorder program, if you do not have a PCP please follow-up at the [facility] [address] [place] [address] If your symptoms worsen or if you develop new chest pain, shortness of breath, withdrawal symptoms or bleeding from mouth or anus - please come back to the ED immediately Prescriptions/Referrals Prescriptions/Med Rec: New buspirone 7.5 mg tablet 7.5 mg PO BID Qty: 20 0RF naltrexone 50 mg tablet 50 mg PO QDAY 30 Days Qty: 30 0RF thiamine mononitrate (vit B1) 100 mg Tablet 100 mg PO QDAY 30 Days Qty: 30 0RF folic acid 1 mg Tablet 1 mg PO QDAY 30 Days Qty: 30 0RF Continued pantoprazole [Protonix] 40 mg tablet,delayed release (DR/EC) 40 mg PO DAILY 30 Days Qty: 30 3RF Rx Instructions: Take one tablet by mouth twice a day Referrals: Balwinder Humphrey MD [Primary Care Provider, Family Practice] Patient/Caregiver Discharge Instructions Education Materials: Alcohol Withdrawal: What to Expect, Addiction Ask These Questions, Addiction: Getting Help Print Language: Ukrainian Stand Alone Forms: Claire Award Info., Patient Portal Info Letter Quality Discharge Quality Measures VTE prophylaxis
[2024-11-27] MEDS: cefTRIAXone 2 GM in SODIUM CHLORIDE 0.9% (Popper) 50 ML IV (10:45)
[2024-11-27] MEDS: KETOROLAC 10 MG TABLET PO ×2 (10:45→16:49)
[2024-11-27] MEDS: VANCOMYCIN/D5W 1,250 MG IVPB 250 ML 120 MG IV (11:19)
[2024-11-27 12:00] VITALS: BP 136/81; PULSE 54; RESP 18; TEMP 36.6; O2SAT 99
--- NOTE | 2024-11-27 13:14 | PC.CM ---
Addendum entered by Kelly Brewster RN 11/27/24 19:19: I do not have any accepting facilities at this time. I let packet on transfer nurse desk. Patient will need authorization for transfer from Insurance. I will be back tomorrow to work on transfer request. Addendum entered by Kelly Brewster RN 11/27/24 15:44: 1535 I reached out to [facility] in [place] and they stated they do not have OFMS on for today. They declined transfer. Addendum entered by Kelly Brewster RN 11/27/24 15:37: 1520 I called and gave update to Dr. Reed. He states to continue to try and transfer patient for OMFS services for C7 soft tissue abscess. 1515 I received a call from Mary with [facility] transfer center. She state their neurosurgeon reviewed all the paperwork and images that I sent and he feels patient is more approriate for OMFS ( Oral maxillofacial surgeon). Mary states they do have OMFS services at their facility, but will have to decline due to capacity. Addendum entered by Kelly Brewster RN 11/27/24 13:53: 1345 I recived a call back from Mary with [facility]. She states she did not get the images I pushed over. She states they were having problems so she asked me to send the images again. I pushed over images. Original Note: 1305 I spoke to Mary with the transfer center at [facility] and she states she received all my paperwork and she will be presenting the patient to her doctor. 1225 I received a call from Courtney stating patient was on suicide watch and she did not know if patient could be transferred out. I called and I spoke to Hazel and Greta to discuss patient. Greta states patient could be transferred for higher level care and patient is not on a hold. He is just being watched for suicide precautions. 1130 I faxed information to [facility] and I pushed over images. 1100 I received a referral to transfer patient for neurosurgery for C7 anterior soft tissue abscess.
[2024-11-27] MEDS: VANCOMYCIN/NS 750 MG IVPB 750 MG/150 ML BAG 120 MG IV ×2 (15:26→21:44)
[2024-11-27 16:00] VITALS: BP 124/74; PULSE 59; RESP 18; TEMP 37.1; O2SAT 97
[2024-11-27 20:00] VITALS: BP 138/78; PULSE 64; RESP 16; TEMP 36.7; O2SAT 97
--- NOTE | 2024-11-27 21:00 | PD.IMPROG ---
Documentation for date of: 11/27/24 Subjective Subjective Interval history: Hemoglobin hematocrit 10.9 and 33.6 Exam Vital Signs Temp Pulse Resp BP Pulse Ox O2 Del Method 98.0 F 64 16 138/78 H 97 Room Air 11/27/24 20:00 11/27/24 20:00 11/27/24 20:00 11/27/24 20:00 11/27/24 20:00 11/27/24 20:00 Objective Labs 11/27/24 06:32 11/27/24 06:32 Labs: Laboratory Results - last 24 hr 11/27/24 06:32 WBC 3.5 L RBC 3.73 L Hgb 10.9 L Hct 33.8 L MCV 91 MCH 29.2 MCHC 32.2 RDW Std Deviation 57.6 H Plt Count 230 Neut % (Auto) 39 Lymph % (Auto) 34 [place] % (Auto) 22 H Eos % (Auto) 4 Baso % (Auto) 1 Neut # (Auto) 1.4 L Lymph # (Auto) 1.2 [place] # (Auto) 0.8 Eos # (Auto) 0.1 Baso # (Auto) 0.1 Immature Gran # (Auto) 0.01 H Absolute Nucleated RBC 0.00 Immature Gran % 0 Nucleated RBC % 0 Sodium 141 Potassium 4.1 Chloride 105 Carbon Dioxide 27.2 Anion Gap 9 BUN 6 L Creatinine 0.9 Estim Creat Clear Calc 100.9 eGFR > 60 BUN/Creatinine Ratio 7 L Glucose 98 Calculated Osmolality 278 Calcium 9.1 Corrected Calcium 9.1 Total Bilirubin 0.3 AST 92 H ALT 111 H Alkaline Phosphatase 152 H Total Protein 6.5 Albumin 4.2 Globulin 2.3 Albumin/Globulin Ratio 1.8 Impressions Impression: Esophageal varices Gastritis Relatively stable hemoglobin hematocrit Continue current management Assessment & Plan A&P Narrative coag neg staph in in ED c/o fever cirrhosis with normal inr and plts but low counts. hx of heavy etoh use noted role of abx unclear to me. ok to get a trans thoracic echo and if neg then stop and re evaluate rx we will see briefly tuesday am he wants something for anxiety. but may have been the reason he was drinking etoh will see again prn Time Spent With Patient Time: Total time spent is greater than 50% in coordination of care (as documented) at patient's floor/unit and/or counseling patient:
[2024-11-27] MEDS: ZOLPIDEM 5 MG TABLET PO (21:44)
[2024-11-27] MEDS: ACETAMINOPHEN 325 MG TABLET 650 MG PO (21:47)
[2024-11-28] VITALS: BP 103/53; PULSE 54; RESP 18; TEMP 36.5; O2SAT 96
[2024-11-28 04:00] VITALS: BP 106/61; PULSE 54; RESP 20; TEMP 36.3; O2SAT 97
[2024-11-28 05:40] VITALS: BMI 26.9
[2024-11-28 05:48] LABS: Basophils # (Auto) 0.1 Thou/mm3 (0.0-0.2); Basophils % (Auto) 1 % (0-2.5); Eosinophils # (Auto) 0.2 Thou/mm3 (0.0-0.5); Eosinophils % (Auto) 4 % (0-10); Hematocrit 32.8 % (41.0-53.0); Hemoglobin 10.5 g/dL (13.5-16.0); Immature Granulocytes Auto 0.01 Thou/mm3 (0.00-0.00); Lymphocytes # (Auto) 1.2 Thou/mm3 (1.0-4.8); Lymphocytes % (Auto) 29 % (10-50); Mean Corpuscular HGB Conc 32.0 g/dl (31.0-37.0); Mean Corpuscular Hemoglobin 29.4 pg (25.0-35.0); Mean Corpuscular Volume 92 fL (80-100); Monocytes # (Auto) 0.9 Thou/mm3 (0.0-0.8); Monocytes % (Auto) 23 % (0-12); Neutrophils # (Auto) 1.8 Thou/mm3 (1.8-7.7); Neutrophils % (Auto) 44 % (37-80); Nucleated Red Blood Cell # 0.00 Thou/mm3 (0.00-0.00); Nucleated Red Blood Cell % 0 /100 WBC (0); Platelet Count 194 Thou/mm3 (140-440); RDW Standard Deviation 58.6 fL (35.1-43.9); Red Blood Count 3.57 Miln/mm3 (4.50-5.90); White Blood Count 4.1 Thou/mm3 (3.8-10.6)
[2024-11-28] MEDS: GABAPENTIN 100 MG CAPSULE PO ×3 (05:57→21:02)
[2024-11-28 06:21] LABS: Alanine Aminotransferase 87 U/L (10-49); Albumin, Serum 4.2 gm/dL (3.5-5.0); Albumin/Globulin Ratio 2.1 (1.2-2.2); Alkaline Phosphatase 131 U/L (46-116); Anion Gap 9 (7-16); Aspartate Amino Transferase 62 U/L (0-34); BUN/Creatinine Ratio 5 Ratio (12-20); Bilirubin,Total 0.3 mg/dL (0.3-1.2); Blood Urea Nitrogen < 5 mg/dL (9-23); Calcium 9.0 mg/dL (8.3-10.6); Calcium (Corrected) 9.0 mg/dL (8.5-10.1); Carbon Dioxide 27.8 mMol/L (20.0-31.0); Chloride 106 mMol/L (98-107); Creatinine (Component) 1.0 mg/dL (0.6-1.3); Estimated Creatinine Clearance 90.8 mL/min (>60); Globulin 2.0 gm/dL (2.3-3.5); Glucose 88 mg/dL (74-106); Osmolality,Calculated 281 (275-295); Potassium 4.0 mMol/L (3.4-5.1); Sodium 143 mMol/L (136-145); Total Protein 6.2 gm/dL (5.7-8.2); Vancomycin,Trough 19.6 mcg/mL (5.0-10.0); eGFR > 60 See Note
[2024-11-28] MEDS: KETOROLAC 10 MG TABLET PO ×3 (06:24→21:26)
[2024-11-28 08:00] VITALS: BP 132/88; PULSE 51; RESP 18; TEMP 36.3; O2SAT 99
--- NOTE | 2024-11-28 08:33 | PC.CM ---
Addendum entered by Kelly Brewster RN 11/28/24 11:47: 1010 [facility] transfer nurse called me back and stated they do no have OMFS services. Patient was declined. Addendum entered by Kelly Brewster RN 11/28/24 10:52: 0955 I called and initiated a transfer with Chuck with [facility] center. I faxed over information and I presented patient. Chuck states she will have nurse call me for more information. Original Note: I spoke to Dr. Beasley to see if Dr. Walton was going to see patient because I saw a consult ordered with him. He stated Anton was not going to consult on patient. I verified with the doctor they still wanted a transfer for OMFS. [facility] declined patient due to capacity.
[2024-11-28] MEDS: PANTOPRAZOLE 40 MG TABLET PO ×2 (08:36→20:19)
[2024-11-28] MEDS: FOLIC ACID 1 MG TABLET PO (08:36)
[2024-11-28] MEDS: ENOXAPARIN SOD INJ 40 MG/0.4 ML SYRINGE SC (08:36)
[2024-11-28] MEDS: THIAMINE 100 MG TABLET PO (08:37)
[2024-11-28] MEDS: cefTRIAXone 2 GM in SODIUM CHLORIDE 0.9% (Popper) 50 ML IV (08:37)
[2024-11-28] MEDS: ACETAMINOPHEN 325 MG TABLET 650 MG PO (08:49)
--- NOTE | 2024-11-28 09:53 | PC.SS ---
Follow up note: Pt is waiting for higher level of care tranfer.
[2024-11-28] MEDS: VANCOMYCIN/NS 1 GM IVPB 200 ML IV ×2 (10:22→21:02)
[2024-11-28 12:00] VITALS: BP 133/79; PULSE 53; RESP 17; TEMP 36.9; O2SAT 100
--- NOTE | 2024-11-28 14:14 | ESPR_ITS ---
<Statement entered by Carlos Eduardo Reed MD - 12/03/24 08:35> I reviewed above note and agree with findings and plans. I have also personally examined the patient with medicine team and went over assessment and plan with medical team including jewelry internship and resident physician. <Statement entered by Wilber Beasley MD - 11/28/24 15:50> Patient seen and assessed in hospital bed denies having any concerning symptoms other than some mild anxiety which anxiolytics were given. Patient is still pending transfer for OMFS for abscess noted on anterior cervical C7 spine. Patient denies having any concerning symptoms and has not had any fever/chills, dysphagia noted. Will continue monitoring the patient and await for transfer RN for updates. I have personally seen and examined the patient. I agree with the resident's assessment and plan as documented below. Wilber Beasley DO PGY-2 Internal Medicine - [facility] Documentation for date of: 11/28/24 Subjective Subjective Interval history: Patient seen at bedside. No acute overnight events. Patient denies any chest pain, shortness of breath, abdominal pain, nausea, vomiting, dizziness. Patient's vitals and labs were reviewed. Patient mildly anxious today and was given anxiolytic. Pending transfer to oral maxillofacial surgery. The latest update we got from the transfer nurse is that the [place] facility is at full capacity at this point in time, we will check on this tomorrow a.m. Continues on IV antibiotics. Exam Vital Signs Temp Pulse Resp BP Pulse Ox O2 Del Method 98.5 F 53 L 17 133/79 H 100 Room Air 11/28/24 12:00 11/28/24 12:00 11/28/24 12:00 11/28/24 12:00 11/28/24 12:00 11/28/24 12:00 Narrative Exam General: No acute distress, well nourished, AAO x3, mild tremors hands Eye: PERRL, EOMI, normal conjunctiva, no scleral icterus HENT: Normocephalic, atraumatic, hearing intact to conversation at normal volume, moist oral mucosa Neck: Supple, non-tender, no JVD, no lymphadenopathy Lungs: Non-labored respirations, symmetric chest rise, Clear to auscultate bilaterally, No wheezing, rhonchi, crackles Heart: Peripheral pulses intact bilaterally, Regular Rate and Rhythm. Abdomen: Soft, non-distended, no palpable masses, nontender Musculoskeletal: Tenderness to palpation over the vertebral bodies from cervical to thoracic. Normal range of motion and strength, No cyanosis or edema, No visible joint swelling Skin: Skin is warm, dry. Psychiatric: Cooperative, appropriate mood and affect, Awake and alert, not agitated Neuro: Cranial nerves II-XII grossly intact. Strength 5/5 throughout. Sensations intact to light touch. Objective Labs 11/28/24 04:18 11/28/24 04:18 Labs: Laboratory Results - last 24 hr 11/28/24 04:18 WBC 4.1 RBC 3.57 L Hgb 10.5 L Hct 32.8 L MCV 92 MCH 29.4 MCHC 32.0 RDW Std Deviation 58.6 H Plt Count 194 D Neut % (Auto) 44 Lymph % (Auto) 29 [place] % (Auto) 23 H Eos % (Auto) 4 Baso % (Auto) 1 Neut # (Auto) 1.8 Lymph # (Auto) 1.2 [place] # (Auto) 0.9 H Eos # (Auto) 0.2 Baso # (Auto) 0.1 Immature Gran # (Auto) 0.01 H Absolute Nucleated RBC 0.00 Immature Gran % 0 Nucleated RBC % 0 Sodium 143 Potassium 4.0 Chloride 106 Carbon Dioxide 27.8 Anion Gap 9 BUN < 5 L Creatinine 1.0 Estim Creat Clear Calc 90.8 eGFR > 60 BUN/Creatinine Ratio 5 L Glucose 88 Calculated Osmolality 281 Calcium 9.0 Corrected Calcium 9.0 Total Bilirubin 0.3 AST 62 H ALT 87 H Alkaline Phosphatase 131 H D Total Protein 6.2 Albumin 4.2 Globulin 2.0 L Albumin/Globulin Ratio 2.1 Vancomycin Trough 19.6 H Quality Measures Quality Measures VTE prophylaxis Assessment & Plan Assessment Current Active Medications: Generic Name Dose Route Start Last Admin Trade Name Freq PRN Reason Stop Dose Admin Acetaminophen 650 mg 11/22/24 08:49 11/28/24 08:49 Acetaminophen 325 Mg Tablet PO 12/17/24 13:42 650 mg Q6H PRN Administration PAIN 1-3 OR FEVER > 101 Protocol Bisacodyl 10 mg 11/17/24 13:37 Bisacodyl 5 Mg Tabec PO 12/17/24 13:36 QDAY PRN CONSTIPATION Protocol Dextrose 25 ml 11/17/24 16:01 Dextrose 50%-Water Inj 50 Ml Syringe IV 12/17/24 16:00 Q15MIN PRN BG 50-70 responsive npo pt Dextrose 50 ml 11/17/24 16:01 Dextrose 50%-Water Inj 50 Ml Syringe IV 12/17/24 16:00 Q15MIN PRN BG <50 OR BG <70 & pt unresponsive Enoxaparin Sodium 40 mg 11/20/24 12:15 11/28/24 08:36 Enoxaparin Sod Inj 40 Mg/0.4 Ml Syringe SC 12/04/24 12:14 40 mg QDAY APOORVA Administration Folic Acid 1 mg 11/20/24 09:00 11/28/24 08:36 Folic Acid 1 Mg Tablet PO 12/20/24 08:59 1 mg QDAY APOORVA Administration Gabapentin 100 mg 11/20/24 14:00 11/28/24 13:53 Gabapentin 100 Mg Capsule PO 12/20/24 13:59 100 mg TID APOORVA Administration Glucagon 1 mg 11/17/24 16:01 Glucagon Inj 1 Mg Vial IM Q15MIN PRN BG <70, and no IV access Ceftriaxone Sodium 2 gm/ 50 mls @ 100 mls/hr 11/27/24 10:28 11/28/24 08:37 Sodium Chloride IV 12/04/24 10:27 100 mls/hr QDAY APOORVA Administration Vancomycin/Sodium Chloride 200 mls @ 120 mls/hr 11/28/24 10:00 11/28/24 10:22 Vancomycin/Ns 1 Gm Ivpb IV 12/05/24 09:59 120 mls/hr Q12H APOORVA Administration Ketorolac Tromethamine 10 mg 11/28/24 06:13 11/28/24 13:05 Ketorolac 10 Mg Tablet PO 12/03/24 06:12 10 mg Q6HR PRN Administration PAIN- 4-6 Lidocaine 1 patch 11/24/24 11:16 11/26/24 21:30 Lidocaine 5% 1 Patch TOP 12/24/24 11:15 1 patch UD PRN Administration PAIN Protocol Lorazepam 0.5 mg 11/28/24 14:12 Lorazepam 0.5 Mg Tablet PO 11/28/24 14:13 X1 ONE Pantoprazole Sodium 40 mg 11/18/24 09:00 11/28/24 08:36 Pantoprazole 40 Mg Tablet PO 12/18/24 08:59 40 mg BID APOORVA Administration Pharmacy Consult 1 each 11/27/24 09:00 Vancomycin Pharmacy To Dose 1 Each Each IV 12/27/24 08:59 QDAY PRN PROTOCOL Prochlorperazine Maleate 5 mg 11/19/24 10:00 11/25/24 19:53 Prochlorperazine Maleate 5 Mg Tablet PO 12/19/24 09:59 5 mg Q6HR PRN Administration NAUSEA OR VOMITING Sennosides 1 tab 11/18/24 09:00 11/28/24 08:37 Senna Tablet PO 12/18/24 08:59 Not Given QDAY APOORVA Protocol Thiamine HCl 100 mg 11/20/24 09:00 11/28/24 08:37 Thiamine 100 Mg Tablet PO 12/20/24 08:59 100 mg QDAY APOORVA Administration Zinc Acetate/Diphenhydramine 0 gm 11/17/24 18:27 11/22/24 14:35 Diphenhydramine/Zn Acet 2% Cr 30 Gm Tube TOP 12/17/24 18:26 1 applicatio Q6HR PRN Administration RASH Zolpidem Tartrate 5 mg 11/22/24 21:00 11/27/24 21:44 Zolpidem 5 Mg Tablet PO 12/22/24 20:59 5 mg HS APOORVA Administration Plan Patient still in hospital, [place] [facility] [place] 29[place] history of alcohol use and withdrawal, cirrhosis, and esophageal varices. Patient was admitted for alcohol withdrawal. ED course: Initial vitals include temperature 98.3, blood pressure 133/86, pulse 95, respirations 16, 95% on room air. Cervical spine showed no acute fracture, C5- C6 mild to moderate left neural foraminal stenosis. Head CT was negative. Chest x-ray was negative for aspiration pneumonia. CT abdomen showed gastritis pattern, cholelithiasis, negative for cholecystitis. Notable labs include hemoglobin 11.4, creatinine 0.9, magnesium 1.8, AST 57, ALT 49, alkaline phosphatase 168, total creatinine kinase 289, Pro-Thai 0.05, lipase 44. UA negative. Urine toxicology negative for drugs, positive for alcohol 394.4. Patient received diazepam 10 mg x 1, ibuprofen 800 mg x 1. Patient was transferred to ICU due to high CIWA score of 26. Hospital course: Patient required ICU admission for severe alcohol withdrawal (CIWA 26) and was managed with precedex drip. The patient's clinical status improved significantly following transfer to the floor, having been successfully weaned off chlordiazepoxide. Blood culture from 11/17 was positive for Staph hominis from aerobic bottles, however repeat blood cultures were 11/19 were negative. Transthoracic echo was done and did not show any vegetations. Cardiology determined a Tranesophageal echo was unnecessary. Throughout admission, persistent, scattered spinal pain remained a concern, localized with point tenderness at C7 and T7, despite negative CT imaging of the cervical and thoracic spine for fracture or disc narrowing. There were no signs of spinal cord compression, as the patient denied saddle anesthesia, bilateral lower extremity numbness, or loss of bowel/bladder control. An MRI with contrast of cervical and thoracic spine was done to rule out a potential epidural abscess as the cause of the pain. MRI of cervical spine showed 1.5 cm soft tissue abscess anterior to the C7 vertebral body. Patient requires transfer for urgernt neurosurgical evaluation. Patient emperically started on Vancomycin and Ceftriaxone. Patient remained afebrile and no leukocytosis throughout hospital admission. Discharge instructions: Continue to take buspirone 7.5 mg tablet by mouth twice a day Take folic acid 1 mg tablet and vitamin B1 100 mg tablet once a day each for nutritional support Take naltrexone 50 mg tablet by mouth once a day for alcohol use disorder Continue taking Protonix 40 mg tablet daily Please follow-up with gastroenterology as you have history of esophageal varices Please follow-up with your PCP within 1 week of discharge and ask your PCP to refer you to an alcohol use disorder program, if you do not have a PCP please follow-up at the [facility] [address] [place] [address] If your symptoms worsen or if you develop new chest pain, shortness of breath, withdrawal symptoms or bleeding from mouth or anus - please come back to the ED immediately Admission diagnoses: #MSSA bacteremia #Soft tissue abscess anterior to the C7 vertebral body #History of cirrhosis #History of esophageal varices (Grade I) #Alcohol withdrawal, resolved #Alcohol use disorder Case discussed with my attending Dr. Reed, and senior resident, Dr. Gale Purdy MD PGY-1
[2024-11-28 16:00] VITALS: BP 136/86; PULSE 56; RESP 18; TEMP 36.1; O2SAT 99
--- NOTE | 2024-11-28 19:19 | PC.NURSE ---
rounded on patient. Offered patient soda due to nurse noticing patient having two chocolate pudding on the table. Junie accepted soda and is calmly laying in bed and conversating with nurse .
[2024-11-28 19:57] VITALS: BP 130/81; PULSE 64; RESP 17; TEMP 36.9; O2SAT 99
[2024-11-28] MEDS: ZOLPIDEM 5 MG TABLET PO (20:19)
--- NOTE | 2024-11-28 21:36 | PD.IMPROG ---
Documentation for date of: 11/28/24 Subjective Subjective Interval history: Patient evaluated hemoglobin hematocrit 10.5 and 32.8 Exam Vital Signs Temp Pulse Resp BP Pulse Ox O2 Del Method 98.4 F 64 17 130/81 99 Room Air 11/28/24 19:57 11/28/24 19:57 11/28/24 19:57 11/28/24 19:57 11/28/24 19:57 11/28/24 19:57 Objective Labs 11/28/24 04:18 11/28/24 04:18 Labs: Laboratory Results - last 24 hr 11/28/24 04:18 WBC 4.1 RBC 3.57 L Hgb 10.5 L Hct 32.8 L MCV 92 MCH 29.4 MCHC 32.0 RDW Std Deviation 58.6 H Plt Count 194 D Neut % (Auto) 44 Lymph % (Auto) 29 [place] % (Auto) 23 H Eos % (Auto) 4 Baso % (Auto) 1 Neut # (Auto) 1.8 Lymph # (Auto) 1.2 [place] # (Auto) 0.9 H Eos # (Auto) 0.2 Baso # (Auto) 0.1 Immature Gran # (Auto) 0.01 H Absolute Nucleated RBC 0.00 Immature Gran % 0 Nucleated RBC % 0 Sodium 143 Potassium 4.0 Chloride 106 Carbon Dioxide 27.8 Anion Gap 9 BUN < 5 L Creatinine 1.0 Estim Creat Clear Calc 90.8 eGFR > 60 BUN/Creatinine Ratio 5 L Glucose 88 Calculated Osmolality 281 Calcium 9.0 Corrected Calcium 9.0 Total Bilirubin 0.3 AST 62 H ALT 87 H Alkaline Phosphatase 131 H D Total Protein 6.2 Albumin 4.2 Globulin 2.0 L Albumin/Globulin Ratio 2.1 Vancomycin Trough 19.6 H Impressions Impression: Esophageal varices Gastritis Chronic liver disease secondary to alcohol Continue current management Assessment & Plan A&P Narrative coag neg staph in bc in ED c/o fever cirrhosis with normal inr and plts but low counts. hx of heavy etoh use noted role of abx unclear to me. ok to get a trans thoracic echo and if neg then stop and re evaluate rx we will see briefly tuesday am he wants something for anxiety. but may have been the reason he was drinking etoh will see again prn Time Spent With Patient Time: Total time spent is greater than 50% in coordination of care (as documented) at patient's floor/unit and/or counseling patient:
[2024-11-29] VITALS: BP 114/53; PULSE 54; RESP 17; TEMP 36.2; O2SAT 97
[2024-11-29 04:00] VITALS: BP 114/63; PULSE 50; RESP 16; TEMP 36.2; O2SAT 98
[2024-11-29] MEDS: KETOROLAC 10 MG TABLET PO ×3 (04:13→18:30)
[2024-11-29] MEDS: GABAPENTIN 100 MG CAPSULE PO ×3 (05:04→21:34)
[2024-11-29 05:38] VITALS: BMI 26.9
[2024-11-29 06:00] LABS: Basophils # (Auto) 0.1 Thou/mm3 (0.0-0.2); Basophils % (Auto) 1 % (0-2.5); Eosinophils # (Auto) 0.2 Thou/mm3 (0.0-0.5); Eosinophils % (Auto) 4 % (0-10); Hematocrit 36.1 % (41.0-53.0); Hemoglobin 11.4 g/dL (13.5-16.0); Immature Granulocytes Auto 0.01 Thou/mm3 (0.00-0.00); Lymphocytes # (Auto) 1.3 Thou/mm3 (1.0-4.8); Lymphocytes % (Auto) 29 % (10-50); Mean Corpuscular HGB Conc 31.6 g/dl (31.0-37.0); Mean Corpuscular Hemoglobin 29.1 pg (25.0-35.0); Mean Corpuscular Volume 92 fL (80-100); Monocytes # (Auto) 0.8 Thou/mm3 (0.0-0.8); Monocytes % (Auto) 18 % (0-12); Neutrophils # (Auto) 2.0 Thou/mm3 (1.8-7.7); Neutrophils % (Auto) 47 % (37-80); Nucleated Red Blood Cell # 0.00 Thou/mm3 (0.00-0.00); Nucleated Red Blood Cell % 0 /100 WBC (0); Platelet Count 251 Thou/mm3 (140-440); RDW Standard Deviation 59.7 fL (35.1-43.9); Red Blood Count 3.92 Miln/mm3 (4.50-5.90); White Blood Count 4.3 Thou/mm3 (3.8-10.6)
[2024-11-29 06:30] LABS: Alanine Aminotransferase 94 U/L (10-49); Albumin, Serum 4.8 gm/dL (3.5-5.0); Albumin/Globulin Ratio 2.1 (1.2-2.2); Alkaline Phosphatase 137 U/L (46-116); Anion Gap 13 (7-16); Aspartate Amino Transferase 72 U/L (0-34); BUN/Creatinine Ratio 6 Ratio (12-20); Bilirubin,Total 0.3 mg/dL (0.3-1.2); Blood Urea Nitrogen < 5 mg/dL (9-23); Calcium 9.5 mg/dL (8.3-10.6); Calcium (Corrected) 9.5 mg/dL (8.5-10.1); Carbon Dioxide 25.1 mMol/L (20.0-31.0); Chloride 105 mMol/L (98-107); Creatinine (Component) 0.9 mg/dL (0.6-1.3); Estimated Creatinine Clearance 100.9 mL/min (>60); Globulin 2.3 gm/dL (2.3-3.5); Glucose 94 mg/dL (74-106); Osmolality,Calculated 282 (275-295); Potassium 4.1 mMol/L (3.4-5.1); Sodium 143 mMol/L (136-145); Total Protein 7.1 gm/dL (5.7-8.2); eGFR > 60 See Note
[2024-11-29] MEDS: ACETAMINOPHEN 325 MG TABLET 650 MG PO (07:54)
[2024-11-29 08:00] VITALS: BP 106/56; PULSE 67; RESP 16; TEMP 36.7; O2SAT 100
[2024-11-29] MEDS: PANTOPRAZOLE 40 MG TABLET PO ×2 (09:01→20:19)
[2024-11-29] MEDS: THIAMINE 100 MG TABLET PO (09:01)
[2024-11-29] MEDS: FOLIC ACID 1 MG TABLET PO (09:02)
[2024-11-29] MEDS: cefTRIAXone 2 GM in SODIUM CHLORIDE 0.9% (Popper) 50 ML IV (09:02)
[2024-11-29] MEDS: ENOXAPARIN SOD INJ 40 MG/0.4 ML SYRINGE SC (09:02)
--- NOTE | 2024-11-29 09:06 | PC.CC ---
Received call from Ashley Hanna [facility] [employer], requesting update on discharge plan. Advised Cyndi that patient is planned for [facility], no accepting facility at this time. Provided extension for Transfer Center for follow-up.
[2024-11-29 09:45] VITALS: BMI 26.1
[2024-11-29] MEDS: VANCOMYCIN/NS 1 GM IVPB 200 ML IV ×2 (09:59→21:35)
--- NOTE | 2024-11-29 14:54 | PC.NURSE ---
Called [facility] transfer center at [phone] spoke to Letty, requesting patient transfer for OMFS services, Letty wants transfer information and imaging sent over, spoke to Kelly, she will sent requested information and imaging over to [facility].
--- NOTE | 2024-11-29 15:25 | ESPR_ITS ---
<Statement entered by Carlos Eduardo Reed MD - 12/03/24 08:36> I reviewed above note and agree with findings and plans. I have also personally examined the patient with medicine team and went over assessment and plan with medical team including commissioner of internal revenue and resident physician. <Statement entered by Wilber Beasley MD - 11/29/24 15:57> Patient seen and assessed in hospital bed denies having any concerning symptoms at this time. Patient continues to be on CIWA protocol and highest CIWA recorded in the past 24 hours is 4, patient will receive as needed benzodiazepines. Transfer process still ongoing for ENT/OMFS service for the anterior abscess seen on MRI of the cervical spine, specifically C7 spine. Patient understands transfer process might take some time and is agreeable to it. Will continue monitoring for any acute changes. I have personally seen and examined the patient. I agree with the resident's assessment and plan as documented below. Wilber Beasley DO PGY-2 Internal Medicine - [facility] Documentation for date of: 11/29/24 Subjective Subjective Interval history: Patient seen at bedside. No acute overnight events. Patient denies any chest pain, shortness of breath, abdominal pain, nausea, vomiting, dizziness. Patient's vitals and labs were reviewed. Patient mildly anxious today and was given anxiolytic. Pending transfer to oral maxillofacial surgery/ENT. Continues on IV antibiotics. Exam Vital Signs Temp Pulse Resp BP Pulse Ox O2 Del Method 98.0 F 67 16 106/56 L 100 Room Air 11/29/24 08:00 11/29/24 08:00 11/29/24 08:00 11/29/24 08:00 11/29/24 08:00 11/29/24 08:00 Narrative Exam General: No acute distress, well nourished, AAO x3, mild tremors hands Eye: PERRL, EOMI, normal conjunctiva, no scleral icterus HENT: Normocephalic, atraumatic, hearing intact to conversation at normal volume, moist oral mucosa Neck: Supple, non-tender, no JVD, no lymphadenopathy Lungs: Non-labored respirations, symmetric chest rise, Clear to auscultate bilaterally, No wheezing, rhonchi, crackles Heart: Peripheral pulses intact bilaterally, Regular Rate and Rhythm. Abdomen: Soft, non-distended, no palpable masses, nontender Musculoskeletal: Tenderness to palpation over the vertebral bodies from cervical to thoracic. Normal range of motion and strength, No cyanosis or edema, No visible joint swelling Skin: Skin is warm, dry. Psychiatric: Cooperative, appropriate mood and affect, Awake and alert, not agitated Neuro: Cranial nerves II-XII grossly intact. Strength 5/5 throughout. Sensations intact to light touch. Objective Labs 11/29/24 05:35 11/29/24 05:35 Labs: Laboratory Results - last 24 hr 11/29/24 05:35 WBC 4.3 RBC 3.92 L Hgb 11.4 L Hct 36.1 L MCV 92 MCH 29.1 MCHC 31.6 RDW Std Deviation 59.7 H Plt Count 251 D Neut % (Auto) 47 Lymph % (Auto) 29 [place] % (Auto) 18 H Eos % (Auto) 4 Baso % (Auto) 1 Neut # (Auto) 2.0 Lymph # (Auto) 1.3 [place] # (Auto) 0.8 Eos # (Auto) 0.2 Baso # (Auto) 0.1 Immature Gran # (Auto) 0.01 H Absolute Nucleated RBC 0.00 Immature Gran % 0 Nucleated RBC % 0 Sodium 143 Potassium 4.1 Chloride 105 Carbon Dioxide 25.1 Anion Gap 13 BUN < 5 L Creatinine 0.9 Estim Creat Clear Calc 100.9 eGFR > 60 BUN/Creatinine Ratio 6 L Glucose 94 Calculated Osmolality 282 Calcium 9.5 Corrected Calcium 9.5 Total Bilirubin 0.3 AST 72 H ALT 94 H Alkaline Phosphatase 137 H Total Protein 7.1 Albumin 4.8 D Globulin 2.3 Albumin/Globulin Ratio 2.1 Quality Measures Quality Measures VTE prophylaxis Assessment & Plan Assessment Current Active Medications: Generic Name Dose Route Start Last Admin Trade Name Freq PRN Reason Stop Dose Admin Acetaminophen 650 mg 11/22/24 08:49 11/29/24 07:54 Acetaminophen 325 Mg Tablet PO 12/17/24 13:42 650 mg Q6H PRN Administration PAIN 1-3 OR FEVER > 101 Protocol Bisacodyl 10 mg 11/17/24 13:37 Bisacodyl 5 Mg Tabec PO 12/17/24 13:36 QDAY PRN CONSTIPATION Protocol Dextrose 25 ml 11/17/24 16:01 Dextrose 50%-Water Inj 50 Ml Syringe IV 12/17/24 16:00 Q15MIN PRN BG 50-70 responsive npo pt Dextrose 50 ml 11/17/24 16:01 Dextrose 50%-Water Inj 50 Ml Syringe IV 12/17/24 16:00 Q15MIN PRN BG <50 OR BG <70 & pt unresponsive Enoxaparin Sodium 40 mg 11/20/24 12:15 11/29/24 09:02 Enoxaparin Sod Inj 40 Mg/0.4 Ml Syringe SC 12/04/24 12:14 40 mg QDAY APOORVA Administration Folic Acid 1 mg 11/20/24 09:00 11/29/24 09:02 Folic Acid 1 Mg Tablet PO 12/20/24 08:59 1 mg QDAY APOORVA Administration Gabapentin 100 mg 11/20/24 14:00 11/29/24 13:53 Gabapentin 100 Mg Capsule PO 12/20/24 13:59 100 mg TID APOORVA Administration Glucagon 1 mg 11/17/24 16:01 Glucagon Inj 1 Mg Vial IM Q15MIN PRN BG <70, and no IV access Ceftriaxone Sodium 2 gm/ 50 mls @ 100 mls/hr 11/27/24 10:28 11/29/24 09:02 Sodium Chloride IV 12/04/24 10:27 100 mls/hr QDAY APOORVA Administration Vancomycin/Sodium Chloride 200 mls @ 120 mls/hr 11/28/24 10:00 11/29/24 09:59 Vancomycin/Ns 1 Gm Ivpb IV 12/05/24 09:59 120 mls/hr Q12H APOORVA Administration Protocol Ketorolac Tromethamine 10 mg 11/28/24 06:13 11/29/24 11:16 Ketorolac 10 Mg Tablet PO 12/03/24 06:12 10 mg Q6HR PRN Administration PAIN- 4-6 Lidocaine 1 patch 11/24/24 11:16 11/26/24 21:30 Lidocaine 5% 1 Patch TOP 12/24/24 11:15 1 patch UD PRN Administration PAIN Protocol Lorazepam 0.5 mg 11/29/24 09:50 11/29/24 09:59 Lorazepam 0.5 Mg Tablet PO 12/04/24 09:49 0.5 mg Q4HR PRN Administration CIWA Score 2-6 Lorazepam 1 mg 11/29/24 09:50 11/29/24 13:57 Lorazepam 0.5 Mg Tablet PO 12/04/24 09:49 1 mg Q4HR PRN Administration CIWA SCORE 7-11 Lorazepam 2 mg 11/29/24 09:50 Lorazepam 0.5 Mg Tablet PO 12/04/24 09:49 Q4HR PRN CIWA SCORE 12-15 Pantoprazole Sodium 40 mg 11/18/24 09:00 11/29/24 09:01 Pantoprazole 40 Mg Tablet PO 12/18/24 08:59 40 mg BID APOORVA Administration Pharmacy Consult 1 each 11/27/24 09:00 Vancomycin Pharmacy To Dose 1 Each Each IV 12/27/24 08:59 QDAY PRN PROTOCOL Prochlorperazine Maleate 5 mg 11/19/24 10:00 11/25/24 19:53 Prochlorperazine Maleate 5 Mg Tablet PO 12/19/24 09:59 5 mg Q6HR PRN Administration NAUSEA OR VOMITING Sennosides 1 tab 11/18/24 09:00 11/29/24 09:01 Senna Tablet PO 12/18/24 08:59 Not Given QDAY APOORVA Protocol Thiamine HCl 100 mg 11/20/24 09:00 11/29/24 09:01 Thiamine 100 Mg Tablet PO 12/20/24 08:59 100 mg QDAY APOORVA Administration Zinc Acetate/Diphenhydramine 0 gm 11/17/24 18:27 11/22/24 14:35 Diphenhydramine/Zn Acet 2% Cr 30 Gm Tube TOP 12/17/24 18:26 1 applicatio Q6HR PRN Administration RASH Zolpidem Tartrate 5 mg 11/22/24 21:00 11/28/24 20:19 Zolpidem 5 Mg Tablet PO 12/22/24 20:59 5 mg HS APOORVA Administration Plan Patient still in hospital, pending transfer to OMFS/ENT 29-year-old male history of alcohol use and withdrawal, cirrhosis, and esophageal varices. Patient was admitted for alcohol withdrawal. ED course: Initial vitals include temperature 98.3, blood pressure 133/86, pulse 95, respirations 16, 95% on room air. Cervical spine showed no acute fracture, C5- C6 mild to moderate left neural foraminal stenosis. Head CT was negative. Chest x-ray was negative for aspiration pneumonia. CT abdomen showed gastritis pattern, cholelithiasis, negative for cholecystitis. Notable labs include hemoglobin 11.4, creatinine 0.9, magnesium 1.8, AST 57, ALT 49, alkaline phosphatase 168, total creatinine kinase 289, Pro-Thai 0.05, lipase 44. UA negative. Urine toxicology negative for drugs, positive for alcohol 394.4. Patient received diazepam 10 mg x 1, ibuprofen 800 mg x 1. Patient was transferred to ICU due to high CIWA score of 26. Hospital course: Patient required ICU admission for severe alcohol withdrawal (CIWA 26) and was managed with precedex drip. The patient's clinical status improved significantly following transfer to the floor, having been successfully weaned off chlordiazepoxide. Blood culture from 11/17 was positive for Staph hominis from aerobic bottles, however repeat blood cultures were 11/19 were negative. Transthoracic echo was done and did not show any vegetations. Cardiology determined a Tranesophageal echo was unnecessary. Throughout admission, persistent, scattered spinal pain remained a concern, localized with point tenderness at C7 and T7, despite negative CT imaging of the cervical and thoracic spine for fracture or disc narrowing. There were no signs of spinal cord compression, as the patient denied saddle anesthesia, bilateral lower extremity numbness, or loss of bowel/bladder control. An MRI with contrast of cervical and thoracic spine was done to rule out a potential epidural abscess as the cause of the pain. MRI of cervical spine showed 1.5 cm soft tissue abscess anterior to the C7 vertebral body. Patient requires transfer for urgernt OMFS/ENT evaluation. Patient emperically started on Vancomycin and Ceftriaxone. Patient remained afebrile and no leukocytosis throughout hospital admission. Discharge instructions: Continue to take buspirone 7.5 mg tablet by mouth twice a day Take folic acid 1 mg tablet and vitamin B1 100 mg tablet once a day each for nutritional support Take naltrexone 50 mg tablet by mouth once a day for alcohol use disorder Continue taking Protonix 40 mg tablet daily Please follow-up with gastroenterology as you have history of esophageal varices Please follow-up with your PCP within 1 week of discharge and ask your PCP to refer you to an alcohol use disorder program, if you do not have a PCP please follow-up at the [facility] [address] [place] [address] If your symptoms worsen or if you develop new chest pain, shortness of breath, withdrawal symptoms or bleeding from mouth or anus - please come back to the ED immediately Admission diagnoses: #MSSA bacteremia #Soft tissue abscess anterior to the C7 vertebral body #History of cirrhosis #History of esophageal varices (Grade I) #Alcohol withdrawal, resolved #Alcohol use disorder Case discussed with my attending Dr. Reed, and senior resident, Dr. Gale Purdy MD PGY-1
--- NOTE | 2024-11-29 15:34 | PC.SS ---
Rounding Note: Patient is pending transfer HLOC. Patient possesses 1:1 sitter at bedside.
--- NOTE | 2024-11-29 15:47 | PC.CM ---
Addendum entered by Kelly Brewster RN 11/29/24 16:15: I received a call from Letty with [facility] and she states they will decline patient due to capacity. I will notify [facility] charge nurse. Original Note: [facility] is working on this transfer. She asked me to fax over paperwork and push over images on patient. I sent information and pushed images to [facility].
[2024-11-29 20:00] VITALS: BP 110/69; PULSE 63; RESP 20; TEMP 36.8; O2SAT 100
--- NOTE | 2024-11-29 20:18 | PD.IMPROG ---
Documentation for date of: 11/29/24 Subjective Subjective Interval history: Hemoglobin hematocrit 11.4 and 36.1 pending transfer to facial maxillary surgery Exam Vital Signs Temp Pulse Resp BP Pulse Ox O2 Del Method 98.2 F 63 20 110/69 100 Room Air 11/29/24 20:00 11/29/24 20:00 11/29/24 20:00 11/29/24 20:00 11/29/24 20:00 11/29/24 20:00 Objective Labs 11/29/24 05:35 11/29/24 05:35 Labs: Laboratory Results - last 24 hr 11/29/24 05:35 WBC 4.3 RBC 3.92 L Hgb 11.4 L Hct 36.1 L MCV 92 MCH 29.1 MCHC 31.6 RDW Std Deviation 59.7 H Plt Count 251 D Neut % (Auto) 47 Lymph % (Auto) 29 [place] % (Auto) 18 H Eos % (Auto) 4 Baso % (Auto) 1 Neut # (Auto) 2.0 Lymph # (Auto) 1.3 [place] # (Auto) 0.8 Eos # (Auto) 0.2 Baso # (Auto) 0.1 Immature Gran # (Auto) 0.01 H Absolute Nucleated RBC 0.00 Immature Gran % 0 Nucleated RBC % 0 Sodium 143 Potassium 4.1 Chloride 105 Carbon Dioxide 25.1 Anion Gap 13 BUN < 5 L Creatinine 0.9 Estim Creat Clear Calc 100.9 eGFR > 60 BUN/Creatinine Ratio 6 L Glucose 94 Calculated Osmolality 282 Calcium 9.5 Corrected Calcium 9.5 Total Bilirubin 0.3 AST 72 H ALT 94 H Alkaline Phosphatase 137 H Total Protein 7.1 Albumin 4.8 D Globulin 2.3 Albumin/Globulin Ratio 2.1 Impressions Impression: Upper GI bleed stable Esophageal varices Gastritis Continue to monitor CBC Assessment & Plan A&P Narrative coag neg staph in in ED c/o fever cirrhosis with normal inr and plts but low counts. hx of heavy etoh use noted role of abx unclear to me. ok to get a trans thoracic echo and if neg then stop and re evaluate rx we will see briefly tuesday am he wants something for anxiety. but may have been the reason he was drinking etoh will see again prn Time Spent With Patient Time: Total time spent is greater than 50% in coordination of care (as documented) at patient's floor/unit and/or counseling patient:
[2024-11-29] MEDS: ZOLPIDEM 5 MG TABLET PO (20:24)
[2024-11-30] VITALS (7 sets, daily range): BP systolic 112–128; BP diastolic 66–74; PULSE 50–57; RESP 15–19; TEMP 36.1–36.8; O2SAT 93–100; BMI 26.1
[2024-11-30] MEDS: GABAPENTIN 100 MG CAPSULE PO ×3 (05:29→21:57)
[2024-11-30] MEDS: KETOROLAC 10 MG TABLET PO ×2 (05:31→22:08)
[2024-11-30 06:16] LABS: Basophils # (Auto) 0.1 Thou/mm3 (0.0-0.2); Basophils % (Auto) 1 % (0-2.5); Eosinophils # (Auto) 0.2 Thou/mm3 (0.0-0.5); Eosinophils % (Auto) 4 % (0-10); Hematocrit 34.1 % (41.0-53.0); Hemoglobin 11.2 g/dL (13.5-16.0); Immature Granulocytes Auto 0.01 Thou/mm3 (0.00-0.00); Lymphocytes # (Auto) 1.2 Thou/mm3 (1.0-4.8); Lymphocytes % (Auto) 28 % (10-50); Mean Corpuscular HGB Conc 32.8 g/dl (31.0-37.0); Mean Corpuscular Hemoglobin 29.9 pg (25.0-35.0); Mean Corpuscular Volume 91 fL (80-100); Monocytes # (Auto) 0.7 Thou/mm3 (0.0-0.8); Monocytes % (Auto) 17 % (0-12); Neutrophils # (Auto) 2.2 Thou/mm3 (1.8-7.7); Neutrophils % (Auto) 49 % (37-80); Nucleated Red Blood Cell # 0.00 Thou/mm3 (0.00-0.00); Nucleated Red Blood Cell % 0 /100 WBC (0); Platelet Count 213 Thou/mm3 (140-440); RDW Standard Deviation 59.0 fL (35.1-43.9); Red Blood Count 3.75 Miln/mm3 (4.50-5.90); White Blood Count 4.4 Thou/mm3 (3.8-10.6)
[2024-11-30 06:34] LABS: Anion Gap 12 (7-16); BUN/Creatinine Ratio 8 Ratio (12-20); Blood Urea Nitrogen 7 mg/dL (9-23); Calcium 9.5 mg/dL (8.3-10.6); Carbon Dioxide 26.2 mMol/L (20.0-31.0); Chloride 106 mMol/L (98-107); Creatinine (Component) 0.9 mg/dL (0.6-1.3); Estimated Creatinine Clearance 99.6 mL/min (>60); Glucose 90 mg/dL (74-106); Osmolality,Calculated 284 (275-295); Potassium 4.1 mMol/L (3.4-5.1); Sodium 144 mMol/L (136-145); eGFR > 60 See Note
[2024-11-30] MEDS: ACETAMINOPHEN 325 MG TABLET 650 MG PO (07:29)
[2024-11-30] MEDS: FOLIC ACID 1 MG TABLET PO (08:15)
[2024-11-30] MEDS: ENOXAPARIN SOD INJ 40 MG/0.4 ML SYRINGE SC (08:15)
[2024-11-30] MEDS: PANTOPRAZOLE 40 MG TABLET PO ×2 (08:15→21:57)
[2024-11-30] MEDS: THIAMINE 100 MG TABLET PO (08:15)
[2024-11-30] MEDS: cefTRIAXone 2 GM in SODIUM CHLORIDE 0.9% (Popper) 50 ML IV (08:15)
[2024-11-30 08:34] LABS: Vancomycin,Trough 10.5 mcg/mL (5.0-10.0)
[2024-11-30] MEDS: VANCOMYCIN/NS 1 GM IVPB 200 ML IV ×2 (10:07→21:56)
--- NOTE | 2024-11-30 11:41 | PC.CM ---
Addendum entered by Osiel Corey RN 11/30/24 13:15: 1315-Received call from ASHLEY Lacey at [facility], patient declined due to capacity. Addendum entered by Osiel Corey RN 11/30/24 12:21: 1215- Transfer packet sent to [facility] and [facility], spoke with transfer center RN at both facilities to make them aware of the packet, Justine at [facility] and Deepthi at [facility] both acknowledged receiving packet, they will review and call back for additional information if needed. Pending response from them at this time. Addendum entered by Osiel Corey RN 11/30/24 11:45: 1144- Call to ASHLEY Oliva at [facility], they are still at capacity today for inpatient transfers. Original Note: 1140- Call to [facility], spoke to LEI Lund RN, they do not have OMFS at their facility.
--- NOTE | 2024-11-30 13:22 | ESPR_ITS ---
<Statement entered by Carlos Eduardo Reed MD - 12/03/24 15:51> I reviewed above note and agree with findings and plans. I have also personally examined the patient with medicine team and went over assessment and plan with medical team including internal combustion engine subassembler and resident physician. Documentation for date of: 11/30/24 Subjective Subjective Interval history: Patient seen at bedside. No acute overnight events. Patient denies any chest pain, shortness of breath, abdominal pain, nausea, vomiting, dizziness. Patient's vitals and labs were reviewed. Pending transfer to oral maxillofacial surgery/ENT. Continues on IV antibiotics. Exam Vital Signs Temp Pulse Resp BP Pulse Ox O2 Del Method 98.0 F 56 L 15 126/72 96 Room Air 11/30/24 07:55 11/30/24 07:55 11/30/24 07:55 11/30/24 07:55 11/30/24 07:55 11/30/24 07:55 Narrative Exam General: No acute distress, well nourished, AAO x3, mild tremors hands Eye: PERRL, EOMI, normal conjunctiva, no scleral icterus HENT: Normocephalic, atraumatic, hearing intact to conversation at normal volume, moist oral mucosa Neck: Supple, non-tender, no JVD, no lymphadenopathy Lungs: Non-labored respirations, symmetric chest rise, Clear to auscultate bilaterally, No wheezing, rhonchi, crackles Heart: Peripheral pulses intact bilaterally, Regular Rate and Rhythm. Abdomen: Soft, non-distended, no palpable masses, nontender Musculoskeletal: Tenderness to palpation over the vertebral bodies from cervical to thoracic. Normal range of motion and strength, No cyanosis or edema, No visible joint swelling Skin: Skin is warm, dry. Psychiatric: Cooperative, appropriate mood and affect, Awake and alert, not agitated Neuro: Cranial nerves II-XII grossly intact. Strength 5/5 throughout. Sensations intact to light touch. Objective Labs 11/30/24 05:29 11/30/24 05:29 Labs: Laboratory Results - last 24 hr 11/30/24 11/30/24 05:29 08:10 WBC 4.4 RBC 3.75 L Hgb 11.2 L Hct 34.1 L MCV 91 MCH 29.9 MCHC 32.8 RDW Std Deviation 59.0 H Plt Count 213 D Neut % (Auto) 49 Lymph % (Auto) 28 [place] % (Auto) 17 H Eos % (Auto) 4 Baso % (Auto) 1 Neut # (Auto) 2.2 Lymph # (Auto) 1.2 [place] # (Auto) 0.7 Eos # (Auto) 0.2 Baso # (Auto) 0.1 Immature Gran # (Auto) 0.01 H Absolute Nucleated RBC 0.00 Immature Gran % 0 Nucleated RBC % 0 Sodium 144 Potassium 4.1 Chloride 106 Carbon Dioxide 26.2 Anion Gap 12 BUN 7 L Creatinine 0.9 Estim Creat Clear Calc 99.6 eGFR > 60 BUN/Creatinine Ratio 8 L Glucose 90 Calculated Osmolality 284 Calcium 9.5 Vancomycin Trough 10.5 H Quality Measures Quality Measures VTE prophylaxis Assessment & Plan Assessment Current Active Medications: Generic Name Dose Route Start Last Admin Trade Name Freq PRN Reason Stop Dose Admin Acetaminophen 650 mg 11/22/24 08:49 11/30/24 07:29 Acetaminophen 325 Mg Tablet PO 12/17/24 13:42 650 mg Q6H PRN Administration PAIN 1-3 OR FEVER > 101 Protocol Bisacodyl 10 mg 11/17/24 13:37 Bisacodyl 5 Mg Tabec PO 12/17/24 13:36 QDAY PRN CONSTIPATION Protocol Dextrose 25 ml 11/17/24 16:01 Dextrose 50%-Water Inj 50 Ml Syringe IV 12/17/24 16:00 Q15MIN PRN BG 50-70 responsive npo pt Dextrose 50 ml 11/17/24 16:01 Dextrose 50%-Water Inj 50 Ml Syringe IV 12/17/24 16:00 Q15MIN PRN BG <50 OR BG <70 & pt unresponsive Enoxaparin Sodium 40 mg 11/20/24 12:15 11/30/24 08:15 Enoxaparin Sod Inj 40 Mg/0.4 Ml Syringe SC 12/04/24 12:14 40 mg QDAY APOORVA Administration Folic Acid 1 mg 11/20/24 09:00 11/30/24 08:15 Folic Acid 1 Mg Tablet PO 12/20/24 08:59 1 mg QDAY APOORVA Administration Gabapentin 100 mg 11/20/24 14:00 11/30/24 13:17 Gabapentin 100 Mg Capsule PO 12/20/24 13:59 100 mg TID APOORVA Administration Glucagon 1 mg 11/17/24 16:01 Glucagon Inj 1 Mg Vial IM Q15MIN PRN BG <70, and no IV access Ceftriaxone Sodium 2 gm/ 50 mls @ 100 mls/hr 11/27/24 10:28 11/30/24 08:15 Sodium Chloride IV 12/04/24 10:27 100 mls/hr QDAY APOORVA Administration Vancomycin/Sodium Chloride 200 mls @ 120 mls/hr 11/28/24 10:00 11/30/24 10:07 Vancomycin/Ns 1 Gm Ivpb IV 12/05/24 09:59 120 mls/hr Q12H APOORVA Administration Protocol Ketorolac Tromethamine 10 mg 11/28/24 06:13 11/30/24 05:31 Ketorolac 10 Mg Tablet PO 12/03/24 06:12 10 mg Q6HR PRN Administration PAIN- 4-6 Lidocaine 1 patch 11/24/24 11:16 11/26/24 21:30 Lidocaine 5% 1 Patch TOP 12/24/24 11:15 1 patch UD PRN Administration PAIN Protocol Lorazepam 0.5 mg 11/29/24 09:50 11/30/24 11:54 Lorazepam 0.5 Mg Tablet PO 12/04/24 09:49 0.5 mg Q4HR PRN Administration CIWA Score 2-6 Lorazepam 1 mg 11/29/24 09:50 11/29/24 20:19 Lorazepam 0.5 Mg Tablet PO 12/04/24 09:49 1 mg Q4HR PRN Administration CIWA SCORE 7-11 Lorazepam 2 mg 11/29/24 09:50 Lorazepam 0.5 Mg Tablet PO 12/04/24 09:49 Q4HR PRN CIWA SCORE 12-15 Pantoprazole Sodium 40 mg 11/18/24 09:00 11/30/24 08:15 Pantoprazole 40 Mg Tablet PO 12/18/24 08:59 40 mg BID APOORVA Administration Pharmacy Consult 1 each 11/27/24 09:00 Vancomycin Pharmacy To Dose 1 Each Each IV 12/27/24 08:59 QDAY PRN PROTOCOL Prochlorperazine Maleate 5 mg 11/19/24 10:00 11/25/24 19:53 Prochlorperazine Maleate 5 Mg Tablet PO 12/19/24 09:59 5 mg Q6HR PRN Administration NAUSEA OR VOMITING Sennosides 1 tab 11/18/24 09:00 11/30/24 08:15 Senna Tablet PO 12/18/24 08:59 1 tab QDAY APOORVA Administration Protocol Thiamine HCl 100 mg 11/20/24 09:00 11/30/24 08:15 Thiamine 100 Mg Tablet PO 12/20/24 08:59 100 mg QDAY APOORVA Administration Zinc Acetate/Diphenhydramine 0 gm 11/17/24 18:27 11/22/24 14:35 Diphenhydramine/Zn Acet 2% Cr 30 Gm Tube TOP 12/17/24 18:26 1 applicatio Q6HR PRN Administration RASH Zolpidem Tartrate 5 mg 11/22/24 21:00 11/29/24 20:24 Zolpidem 5 Mg Tablet PO 12/22/24 20:59 5 mg HS APOORVA Administration Plan Patient still in hospital, pending transfer to OMFS/ENT 29-year-old male history of alcohol use and withdrawal, cirrhosis, and esophageal varices. Patient was admitted for alcohol withdrawal. ED course: Initial vitals include temperature 98.3, blood pressure 133/86, pulse 95, respirations 16, 95% on room air. Cervical spine showed no acute fracture, C5- C6 mild to moderate left neural foraminal stenosis. Head CT was negative. Chest x-ray was negative for aspiration pneumonia. CT abdomen showed gastritis pattern, cholelithiasis, negative for cholecystitis. Notable labs include hemoglobin 11.4, creatinine 0.9, magnesium 1.8, AST 57, ALT 49, alkaline phosphatase 168, total creatinine kinase 289, Pro-Thai 0.05, lipase 44. UA negative. Urine toxicology negative for drugs, positive for alcohol 394.4. Patient received diazepam 10 mg x 1, ibuprofen 800 mg x 1. Patient was transferred to ICU due to high CIWA score of 26. Hospital course: Patient required ICU admission for severe alcohol withdrawal (CIWA 26) and was managed with precedex drip. The patient's clinical status improved significantly following transfer to the floor, having been successfully weaned off chlordiazepoxide. Blood culture from 11/17 was positive for Staph hominis from aerobic bottles, however repeat blood cultures were 11/19 were negative. Transthoracic echo was done and did not show any vegetations. Cardiology determined a Tranesophageal echo was unnecessary. Throughout admission, persistent, scattered spinal pain remained a concern, localized with point tenderness at C7 and T7, despite negative CT imaging of the cervical and thoracic spine for fracture or disc narrowing. There were no signs of spinal cord compression, as the patient denied saddle anesthesia, bilateral lower extremity numbness, or loss of bowel/bladder control. An MRI with contrast of cervical and thoracic spine was done to rule out a potential epidural abscess as the cause of the pain. MRI of cervical spine showed 1.5 cm soft tissue abscess anterior to the C7 vertebral body. Patient requires transfer for urgernt OMFS/ENT evaluation. Patient emperically started on Vancomycin and Ceftriaxone. Patient remained afebrile and no leukocytosis throughout hospital admission. Discharge instructions: Continue to take buspirone 7.5 mg tablet by mouth twice a day Take folic acid 1 mg tablet and vitamin B1 100 mg tablet once a day each for nutritional support Take naltrexone 50 mg tablet by mouth once a day for alcohol use disorder Continue taking Protonix 40 mg tablet daily Please follow-up with gastroenterology as you have history of esophageal varices Please follow-up with your PCP within 1 week of discharge and ask your PCP to refer you to an alcohol use disorder program, if you do not have a PCP please follow-up at the [facility] [address] [place] [address] If your symptoms worsen or if you develop new chest pain, shortness of breath, withdrawal symptoms or bleeding from mouth or anus - please come back to the ED immediately Admission diagnoses: #MSSA bacteremia #Soft tissue abscess anterior to the C7 vertebral body #History of cirrhosis #History of esophageal varices (Grade I) #Alcohol withdrawal, resolved #Alcohol use disorder
--- NOTE | 2024-11-30 15:16 | PC.SS ---
Rounding Note: Patient's transfer remains pending. Transfer for OMFS for anterior soft tissue abscess.
--- NOTE | 2024-11-30 19:43 | ESPR_ITS ---
Documentation for date of: 11/30/24 Subjective Subjective Interval history: Hemoglobin hematocrit all the low but stable at 11.2 and 34.1 No signs of any active bleeding Exam Vital Signs Temp Pulse Resp BP Pulse Ox O2 Del Method 97.1 F 57 L 18 128/74 99 Room Air 11/30/24 15:58 11/30/24 15:58 11/30/24 15:58 11/30/24 15:58 11/30/24 15:58 11/30/24 15:58 Objective Labs 11/30/24 05:29 11/30/24 05:29 Labs: Laboratory Results - last 24 hr 11/30/24 11/30/24 05:29 08:10 WBC 4.4 RBC 3.75 L Hgb 11.2 L Hct 34.1 L MCV 91 MCH 29.9 MCHC 32.8 RDW Std Deviation 59.0 H Plt Count 213 D Neut % (Auto) 49 Lymph % (Auto) 28 [place] % (Auto) 17 H Eos % (Auto) 4 Baso % (Auto) 1 Neut # (Auto) 2.2 Lymph # (Auto) 1.2 [place] # (Auto) 0.7 Eos # (Auto) 0.2 Baso # (Auto) 0.1 Immature Gran # (Auto) 0.01 H Absolute Nucleated RBC 0.00 Immature Gran % 0 Nucleated RBC % 0 Sodium 144 Potassium 4.1 Chloride 106 Carbon Dioxide 26.2 Anion Gap 12 BUN 7 L Creatinine 0.9 Estim Creat Clear Calc 99.6 eGFR > 60 BUN/Creatinine Ratio 8 L Glucose 90 Calculated Osmolality 284 Calcium 9.5 Vancomycin Trough 10.5 H Impressions Impression: Chronic liver disease secondary to alcoholism Upper GI bleed stable at this time due to esophageal variceal bleed and hypertensive portal gastropathy leading to mucosal oozing of blood Continue to monitor CBC Assessment & Plan A&P Narrative coag neg staph in bc in ED c/o fever cirrhosis with normal inr and plts but low counts. hx of heavy etoh use noted role of abx unclear to me. ok to get a trans thoracic echo and if neg then stop and re evaluate rx we will see briefly tuesday am he wants something for anxiety. but may have been the reason he was drinking etoh will see again prn Time Spent With Patient Time: Total time spent is greater than 50% in coordination of care (as documented) at patient's floor/unit and/or counseling patient:
[2024-11-30] MEDS: ZOLPIDEM 5 MG TABLET PO (21:58)
[2024-12-01 04:00] VITALS: BP 103/56; PULSE 51; RESP 18; TEMP 36.3; O2SAT 96
[2024-12-01 05:59] LABS: Basophils # (Auto) 0.1 Thou/mm3 (0.0-0.2); Basophils % (Auto) 2 % (0-2.5); Eosinophils # (Auto) 0.2 Thou/mm3 (0.0-0.5); Eosinophils % (Auto) 5 % (0-10); Hematocrit 35.0 % (41.0-53.0); Hemoglobin 11.5 g/dL (13.5-16.0); Immature Granulocytes Auto 0.00 Thou/mm3 (0.00-0.00); Lymphocytes # (Auto) 1.2 Thou/mm3 (1.0-4.8); Lymphocytes % (Auto) 26 % (10-50); Mean Corpuscular HGB Conc 32.9 g/dl (31.0-37.0); Mean Corpuscular Hemoglobin 29.6 pg (25.0-35.0); Mean Corpuscular Volume 90 fL (80-100); Monocytes # (Auto) 0.8 Thou/mm3 (0.0-0.8); Monocytes % (Auto) 17 % (0-12); Neutrophils # (Auto) 2.4 Thou/mm3 (1.8-7.7); Neutrophils % (Auto) 51 % (37-80); Nucleated Red Blood Cell # 0.00 Thou/mm3 (0.00-0.00); Nucleated Red Blood Cell % 0 /100 WBC (0); Platelet Count 263 Thou/mm3 (140-440); RDW Standard Deviation 58.1 fL (35.1-43.9); Red Blood Count 3.88 Miln/mm3 (4.50-5.90); White Blood Count 4.7 Thou/mm3 (3.8-10.6)
[2024-12-01] MEDS: GABAPENTIN 100 MG CAPSULE PO ×3 (06:03→21:07)
[2024-12-01 06:23] LABS: Anion Gap 12 (7-16); BUN/Creatinine Ratio 11 Ratio (12-20); Blood Urea Nitrogen 11 mg/dL (9-23); Calcium 9.3 mg/dL (8.3-10.6); Carbon Dioxide 26.1 mMol/L (20.0-31.0); Chloride 105 mMol/L (98-107); Creatinine (Component) 1.0 mg/dL (0.6-1.3); Estimated Creatinine Clearance 91.8 mL/min (>60); Glucose 98 mg/dL (74-106); Osmolality,Calculated 284 (275-295); Potassium 4.0 mMol/L (3.4-5.1); Sodium 143 mMol/L (136-145); eGFR > 60 See Note
--- NOTE | 2024-12-01 07:00 | PC.NURSE ---
pt cooperative, talkative, pleasant. Slept at night.
[2024-12-01 07:59] VITALS: BP 111/75; PULSE 60; RESP 15; TEMP 36.6; O2SAT 97
[2024-12-01] MEDS: cefTRIAXone 2 GM in SODIUM CHLORIDE 0.9% (Popper) 50 ML IV (08:25)
[2024-12-01] MEDS: ENOXAPARIN SOD INJ 40 MG/0.4 ML SYRINGE SC (08:26)
[2024-12-01] MEDS: PANTOPRAZOLE 40 MG TABLET PO ×2 (08:26→21:07)
[2024-12-01] MEDS: FOLIC ACID 1 MG TABLET PO (08:26)
[2024-12-01] MEDS: THIAMINE 100 MG TABLET PO (08:26)
[2024-12-01] MEDS: VANCOMYCIN/NS 1 GM IVPB 200 ML IV ×2 (10:28→21:07)
[2024-12-01] MEDS: ACETAMINOPHEN 325 MG TABLET 650 MG PO ×2 (10:30→21:13)
[2024-12-01 11:37] VITALS: BP 127/56; PULSE 60; RESP 16; TEMP 36.4; O2SAT 94
--- NOTE | 2024-12-01 16:05 | ESPR_ITS ---
<Statement entered by Carlos Eduardo Reed MD - 12/03/24 15:52> I reviewed above note and agree with findings and plans. I have also personally examined the patient with medicine team and went over assessment and plan with medical team including real estate internship and resident physician. Documentation for date of: 12/01/24 Subjective Subjective Interval history: Patient seen at bedside. No acute overnight events. Patient denies any chest pain, shortness of breath, abdominal pain, nausea, vomiting, dizziness. Patient's vitals and labs were reviewed. Pending transfer to oral maxillofacial surgery/ENT. Continues on IV antibiotics. Exam Vital Signs Temp Pulse Resp BP Pulse Ox O2 Del Method 97.6 F 60 16 127/56 L 94 L Room Air 12/01/24 11:37 12/01/24 11:37 12/01/24 11:37 12/01/24 11:37 12/01/24 11:37 12/01/24 11:37 Narrative Exam General: No acute distress, well nourished, AAO x3, mild tremors hands Eye: PERRL, EOMI, normal conjunctiva, no scleral icterus HENT: Normocephalic, atraumatic, hearing intact to conversation at normal volume, moist oral mucosa Neck: Supple, non-tender, no JVD, no lymphadenopathy Lungs: Non-labored respirations, symmetric chest rise, Clear to auscultate bilaterally, No wheezing, rhonchi, crackles Heart: Peripheral pulses intact bilaterally, Regular Rate and Rhythm. Abdomen: Soft, non-distended, no palpable masses, nontender Musculoskeletal: Tenderness to palpation over the vertebral bodies from cervical to thoracic. Normal range of motion and strength, No cyanosis or edema, No visible joint swelling Skin: Skin is warm, dry. Psychiatric: Cooperative, appropriate mood and affect, Awake and alert, not agitated Neuro: Cranial nerves II-XII grossly intact. Strength 5/5 throughout. Sensations intact to light touch. Objective Labs 12/01/24 05:39 12/01/24 05:39 Labs: Laboratory Results - last 24 hr 12/01/24 05:39 WBC 4.7 RBC 3.88 L Hgb 11.5 L Hct 35.0 L MCV 90 MCH 29.6 MCHC 32.9 RDW Std Deviation 58.1 H Plt Count 263 D Neut % (Auto) 51 Lymph % (Auto) 26 [place] % (Auto) 17 H Eos % (Auto) 5 Baso % (Auto) 2 Neut # (Auto) 2.4 Lymph # (Auto) 1.2 [place] # (Auto) 0.8 Eos # (Auto) 0.2 Baso # (Auto) 0.1 Immature Gran # (Auto) 0.00 Absolute Nucleated RBC 0.00 Immature Gran % 0 Nucleated RBC % 0 Sodium 143 Potassium 4.0 Chloride 105 Carbon Dioxide 26.1 Anion Gap 12 BUN 11 Creatinine 1.0 Estim Creat Clear Calc 91.8 eGFR > 60 BUN/Creatinine Ratio 11 L Glucose 98 Calculated Osmolality 284 Calcium 9.3 Quality Measures Quality Measures VTE prophylaxis Assessment & Plan Assessment Current Active Medications: Generic Name Dose Route Start Last Admin Trade Name Freq PRN Reason Stop Dose Admin Acetaminophen 650 mg 11/22/24 08:49 12/01/24 10:30 Acetaminophen 325 Mg Tablet PO 12/17/24 13:42 650 mg Q6H PRN Administration PAIN 1-3 OR FEVER > 101 Protocol Bisacodyl 10 mg 11/17/24 13:37 Bisacodyl 5 Mg Tabec PO 12/17/24 13:36 QDAY PRN CONSTIPATION Protocol Dextrose 25 ml 11/17/24 16:01 Dextrose 50%-Water Inj 50 Ml Syringe IV 12/17/24 16:00 Q15MIN PRN BG 50-70 responsive npo pt Dextrose 50 ml 11/17/24 16:01 Dextrose 50%-Water Inj 50 Ml Syringe IV 12/17/24 16:00 Q15MIN PRN BG <50 OR BG <70 & pt unresponsive Enoxaparin Sodium 40 mg 11/20/24 12:15 12/01/24 08:26 Enoxaparin Sod Inj 40 Mg/0.4 Ml Syringe SC 12/04/24 12:14 40 mg QDAY APOORVA Administration Folic Acid 1 mg 11/20/24 09:00 12/01/24 08:26 Folic Acid 1 Mg Tablet PO 12/20/24 08:59 1 mg QDAY APOORVA Administration Gabapentin 100 mg 11/20/24 14:00 12/01/24 13:33 Gabapentin 100 Mg Capsule PO 12/20/24 13:59 100 mg TID APOORVA Administration Glucagon 1 mg 11/17/24 16:01 Glucagon Inj 1 Mg Vial IM Q15MIN PRN BG <70, and no IV access Ceftriaxone Sodium 2 gm/ 50 mls @ 100 mls/hr 11/27/24 10:28 12/01/24 08:25 Sodium Chloride IV 12/04/24 10:27 100 mls/hr QDAY APOORVA Administration Vancomycin/Sodium Chloride 200 mls @ 120 mls/hr 11/28/24 10:00 12/01/24 10:28 Vancomycin/Ns 1 Gm Ivpb IV 12/05/24 09:59 120 mls/hr Q12H APOORVA Administration Protocol Lidocaine 1 patch 11/24/24 11:16 11/26/24 21:30 Lidocaine 5% 1 Patch TOP 12/24/24 11:15 1 patch UD PRN Administration PAIN Protocol Lorazepam 0.5 mg 11/29/24 09:50 11/30/24 11:54 Lorazepam 0.5 Mg Tablet PO 12/04/24 09:49 0.5 mg Q4HR PRN Administration CIWA Score 2-6 Lorazepam 1 mg 11/29/24 09:50 11/29/24 20:19 Lorazepam 0.5 Mg Tablet PO 12/04/24 09:49 1 mg Q4HR PRN Administration CIWA SCORE 7-11 Lorazepam 2 mg 11/29/24 09:50 Lorazepam 0.5 Mg Tablet PO 12/04/24 09:49 Q4HR PRN CIWA SCORE 12-15 Pantoprazole Sodium 40 mg 11/18/24 09:00 12/01/24 08:26 Pantoprazole 40 Mg Tablet PO 12/18/24 08:59 40 mg BID APOORVA Administration Pharmacy Consult 1 each 11/27/24 09:00 Vancomycin Pharmacy To Dose 1 Each Each IV 12/27/24 08:59 QDAY PRN PROTOCOL Prochlorperazine Maleate 5 mg 11/19/24 10:00 11/25/24 19:53 Prochlorperazine Maleate 5 Mg Tablet PO 12/19/24 09:59 5 mg Q6HR PRN Administration NAUSEA OR VOMITING Sennosides 1 tab 11/18/24 09:00 12/01/24 08:26 Senna Tablet PO 12/18/24 08:59 1 tab QDAY APOORVA Administration Protocol Thiamine HCl 100 mg 11/20/24 09:00 12/01/24 08:26 Thiamine 100 Mg Tablet PO 12/20/24 08:59 100 mg QDAY APOORVA Administration Zinc Acetate/Diphenhydramine 0 gm 11/17/24 18:27 11/22/24 14:35 Diphenhydramine/Zn Acet 2% Cr 30 Gm Tube TOP 12/17/24 18:26 1 applicatio Q6HR PRN Administration RASH Zolpidem Tartrate 5 mg 11/22/24 21:00 11/30/24 21:58 Zolpidem 5 Mg Tablet PO 12/22/24 20:59 5 mg HS APOORVA Administration Plan Patient still in hospital, pending transfer to OMFS/ENT 29-year-old male history of alcohol use and withdrawal, cirrhosis, and esophageal varices. Patient was admitted for alcohol withdrawal. ED course: Initial vitals include temperature 98.3, blood pressure 133/86, pulse 95, respirations 16, 95% on room air. Cervical spine showed no acute fracture, C5- C6 mild to moderate left neural foraminal stenosis. Head CT was negative. Chest x-ray was negative for aspiration pneumonia. CT abdomen showed gastritis pattern, cholelithiasis, negative for cholecystitis. Notable labs include hemoglobin 11.4, creatinine 0.9, magnesium 1.8, AST 57, ALT 49, alkaline phosphatase 168, total creatinine kinase 289, Pro-Thai 0.05, lipase 44. UA negative. Urine toxicology negative for drugs, positive for alcohol 394.4. Patient received diazepam 10 mg x 1, ibuprofen 800 mg x 1. Patient was transferred to ICU due to high CIWA score of 26. Hospital course: Patient required ICU admission for severe alcohol withdrawal (CIWA 26) and was managed with precedex drip. The patient's clinical status improved significantly following transfer to the floor, having been successfully weaned off chlordiazepoxide. Blood culture from 11/17 was positive for Staph hominis from aerobic bottles, however repeat blood cultures were 11/19 were negative. Transthoracic echo was done and did not show any vegetations. Cardiology determined a Tranesophageal echo was unnecessary. Throughout admission, persistent, scattered spinal pain remained a concern, localized with point tenderness at C7 and T7, despite negative CT imaging of the cervical and thoracic spine for fracture or disc narrowing. There were no signs of spinal cord compression, as the patient denied saddle anesthesia, bilateral lower extremity numbness, or loss of bowel/bladder control. An MRI with contrast of cervical and thoracic spine was done to rule out a potential epidural abscess as the cause of the pain. MRI of cervical spine showed 1.5 cm soft tissue abscess anterior to the C7 vertebral body. Patient requires transfer for urgernt OMFS/ENT evaluation. Patient emperically started on Vancomycin and Ceftriaxone. Patient remained afebrile and no leukocytosis throughout hospital admission. Discharge instructions: Continue to take buspirone 7.5 mg tablet by mouth twice a day Take folic acid 1 mg tablet and vitamin B1 100 mg tablet once a day each for nutritional support Take naltrexone 50 mg tablet by mouth once a day for alcohol use disorder Continue taking Protonix 40 mg tablet daily Please follow-up with gastroenterology as you have history of esophageal varices Please follow-up with your PCP within 1 week of discharge and ask your PCP to refer you to an alcohol use disorder program, if you do not have a PCP please follow-up at the [facility] [address] [place] [address] If your symptoms worsen or if you develop new chest pain, shortness of breath, withdrawal symptoms or bleeding from mouth or anus - please come back to the ED immediately Admission diagnoses: #MSSA bacteremia #Soft tissue abscess anterior to the C7 vertebral body #History of cirrhosis #History of esophageal varices (Grade I) #Alcohol withdrawal, resolved #Alcohol use disorder Case discussed with my attending Dr. Reed, and senior resident, Dr. Gale Purdy MD PGY-1
[2024-12-01 16:40] VITALS: BP 126/74; PULSE 53; RESP 16; TEMP 36.4; O2SAT 97
--- NOTE | 2024-12-01 16:48 | PC.CM ---
Addendum entered by Kelly Brewster RN 12/01/24 17:38: 1210 I reviewed patients insurance information and I saw patient had [facility]/[employer] [place] ins. oversees plan. I called Sheryl at [facility] and I left a detailed message stating we are tryng to transfer patient and we are needing authorization. Original Note: [id number] I reached out to [facility] in [place] to follow up on transfer request. Felicity states they did receive a referral but they will not review patient until we get authorization from patient's insurance. Felicity states if we speak to the insurance and they give a verbal to precede, they will just need the name and number of person giving authorization.
--- NOTE | 2024-12-01 18:39 | PD.IMPROG ---
Documentation for date of: 12/01/24 Subjective Subjective Interval history: Hemoglobin hematocrit 11.5 and 35.0 Exam Vital Signs Temp Pulse Resp BP Pulse Ox O2 Del Method 97.6 F 53 L 16 126/74 97 Room Air 12/01/24 16:40 12/01/24 16:40 12/01/24 16:40 12/01/24 16:40 12/01/24 16:40 12/01/24 16:40 Objective Labs 12/01/24 05:39 12/01/24 05:39 Labs: Laboratory Results - last 24 hr 12/01/24 05:39 WBC 4.7 RBC 3.88 L Hgb 11.5 L Hct 35.0 L MCV 90 MCH 29.6 MCHC 32.9 RDW Std Deviation 58.1 H Plt Count 263 D Neut % (Auto) 51 Lymph % (Auto) 26 [place] % (Auto) 17 H Eos % (Auto) 5 Baso % (Auto) 2 Neut # (Auto) 2.4 Lymph # (Auto) 1.2 [place] # (Auto) 0.8 Eos # (Auto) 0.2 Baso # (Auto) 0.1 Immature Gran # (Auto) 0.00 Absolute Nucleated RBC 0.00 Immature Gran % 0 Nucleated RBC % 0 Sodium 143 Potassium 4.0 Chloride 105 Carbon Dioxide 26.1 Anion Gap 12 BUN 11 Creatinine 1.0 Estim Creat Clear Calc 91.8 eGFR > 60 BUN/Creatinine Ratio 11 L Glucose 98 Calculated Osmolality 284 Calcium 9.3 Impressions Impression: Anemia blood loss due to hypertensive portal gastropathy esophageal varices Chronic liver disease secondary to alcohol continue current management Assessment & Plan A&P Narrative coag neg alonzo in in ED c/o fever cirrhosis with normal inr and plts but low counts. hx of heavy etoh use noted role of abx unclear to me. ok to get a trans thoracic echo and if neg then stop and re evaluate rx we will see briefly tuesday am he wants something for anxiety. but may have been the reason he was drinking etoh will see again prn Time Spent With Patient Time: Total time spent is greater than 50% in coordination of care (as documented) at patient's floor/unit and/or counseling patient:
[2024-12-01 19:34] VITALS: BP 125/80; PULSE 82; RESP 18; TEMP 36.6; O2SAT 96
[2024-12-01] MEDS: ZOLPIDEM 5 MG TABLET PO (22:02)
[2024-12-01 23:34] VITALS: BP 105/56; PULSE 65; RESP 18; TEMP 36.2; O2SAT 97
[2024-12-02] MEDS: ACETAMINOPHEN 325 MG TABLET 650 MG PO ×3 (03:34→22:12)
[2024-12-02 03:40] VITALS: BP 91/58; PULSE 59; RESP 18; TEMP 36.4; O2SAT 97
[2024-12-02 05:34] VITALS: BMI 26.6
[2024-12-02] MEDS: GABAPENTIN 100 MG CAPSULE PO ×3 (05:36→21:08)
[2024-12-02 06:21] LABS: Basophils # (Auto) 0.1 Thou/mm3 (0.0-0.2); Basophils % (Auto) 2 % (0-2.5); Eosinophils # (Auto) 0.3 Thou/mm3 (0.0-0.5); Eosinophils % (Auto) 7 % (0-10); Hematocrit 33.8 % (41.0-53.0); Hemoglobin 10.7 g/dL (13.5-16.0); Immature Granulocytes Auto 0.00 Thou/mm3 (0.00-0.00); Lymphocytes # (Auto) 1.3 Thou/mm3 (1.0-4.8); Lymphocytes % (Auto) 31 % (10-50); Mean Corpuscular HGB Conc 31.7 g/dl (31.0-37.0); Mean Corpuscular Hemoglobin 29.4 pg (25.0-35.0); Mean Corpuscular Volume 93 fL (80-100); Monocytes # (Auto) 0.7 Thou/mm3 (0.0-0.8); Monocytes % (Auto) 17 % (0-12); Neutrophils # (Auto) 1.8 Thou/mm3 (1.8-7.7); Neutrophils % (Auto) 43 % (37-80); Nucleated Red Blood Cell # 0.00 Thou/mm3 (0.00-0.00); Nucleated Red Blood Cell % 0 /100 WBC (0); Platelet Count 267 Thou/mm3 (140-440); RDW Standard Deviation 60.2 fL (35.1-43.9); Red Blood Count 3.64 Miln/mm3 (4.50-5.90); White Blood Count 4.3 Thou/mm3 (3.8-10.6)
[2024-12-02 06:45] LABS: Anion Gap 9 (7-16); BUN/Creatinine Ratio 9 Ratio (12-20); Blood Urea Nitrogen 9 mg/dL (9-23); Calcium 9.2 mg/dL (8.3-10.6); Carbon Dioxide 26.7 mMol/L (20.0-31.0); Chloride 107 mMol/L (98-107); Creatinine (Component) 1.0 mg/dL (0.6-1.3); Estimated Creatinine Clearance 90.5 mL/min (>60); Glucose 88 mg/dL (74-106); Osmolality,Calculated 282 (275-295); Potassium 4.0 mMol/L (3.4-5.1); Sodium 143 mMol/L (136-145); eGFR > 60 See Note
[2024-12-02 08:00] VITALS: BP 120/80; PULSE 57; RESP 15; TEMP 36.5; O2SAT 95
[2024-12-02] MEDS: cefTRIAXone 2 GM in SODIUM CHLORIDE 0.9% (Popper) 50 ML IV (09:21)
[2024-12-02] MEDS: PANTOPRAZOLE 40 MG TABLET PO ×2 (09:22→21:08)
[2024-12-02] MEDS: ENOXAPARIN SOD INJ 40 MG/0.4 ML SYRINGE SC (09:22)
[2024-12-02] MEDS: FOLIC ACID 1 MG TABLET PO (09:22)
[2024-12-02] MEDS: THIAMINE 100 MG TABLET PO (09:23)
--- NOTE | 2024-12-02 09:47 | PC.CM ---
Addendum entered by Kelly Brewster RN 12/02/24 17:32: 1400 Referral for transfer sent to [facility] yesterday and [facility] today. Both places would like us to get authorization from patient's insurance prior to reviewing patient. I contacted Sheryl at [facility] at and I left a detailed message and I requested a call back. Packet started and left on transfer nurse desk. 1230 Patient has been declined by [facility], [facility], and [facility]. Original Note: 0830 I called [facility] and initiated a transfer. I faxed over paperwork. I asked them to send me the [employer] link so I could push over images.
[2024-12-02 10:38] LABS: Vancomycin,Trough 8.4 mcg/mL (5.0-10.0)
--- NOTE | 2024-12-02 10:49 | ESPR_ITS ---
<Statement entered by Carlos Eduardo Reed MD - 12/03/24 15:53> I reviewed above note and agree with findings and plans. I have also personally examined the patient with medicine team and went over assessment and plan with medical team including chief of internal medicine and resident physician. Documentation for date of: 12/02/24 Subjective Subjective Interval history: Patient seen at bedside. No acute overnight events. Patient denies any chest pain, shortness of breath, abdominal pain, nausea, vomiting, dizziness. Patient's vitals and labs were reviewed. Pending transfer to oral maxillofacial surgery/ENT. Continues on IV antibiotics. Exam Vital Signs Temp Pulse Resp BP Pulse Ox O2 Del Method 97.7 F 57 L 15 120/80 95 Room Air 12/02/24 08:00 12/02/24 08:00 12/02/24 08:00 12/02/24 08:00 12/02/24 08:00 12/02/24 08:00 Narrative Exam General: No acute distress, well nourished, AAO x3, mild tremors hands Eye: PERRL, EOMI, normal conjunctiva, no scleral icterus HENT: Normocephalic, atraumatic, hearing intact to conversation at normal volume, moist oral mucosa Neck: Supple, non-tender, no JVD, no lymphadenopathy Lungs: Non-labored respirations, symmetric chest rise, Clear to auscultate bilaterally, No wheezing, rhonchi, crackles Heart: Peripheral pulses intact bilaterally, Regular Rate and Rhythm. Abdomen: Soft, non-distended, no palpable masses, nontender Musculoskeletal: Tenderness to palpation over the vertebral bodies from cervical to thoracic. Normal range of motion and strength, No cyanosis or edema, No visible joint swelling Skin: Skin is warm, dry. Psychiatric: Cooperative, appropriate mood and affect, Awake and alert, not agitated Neuro: Cranial nerves II-XII grossly intact. Strength 5/5 throughout. Sensations intact to light touch. Objective Labs 12/02/24 05:28 12/02/24 05:28 Labs: Laboratory Results - last 24 hr 12/02/24 12/02/24 05:28 09:23 WBC 4.3 RBC 3.64 L Hgb 10.7 L Hct 33.8 L MCV 93 MCH 29.4 MCHC 31.7 RDW Std Deviation 60.2 H Plt Count 267 Neut % (Auto) 43 Lymph % (Auto) 31 [place] % (Auto) 17 H Eos % (Auto) 7 Baso % (Auto) 2 Neut # (Auto) 1.8 Lymph # (Auto) 1.3 [place] # (Auto) 0.7 Eos # (Auto) 0.3 Baso # (Auto) 0.1 Immature Gran # (Auto) 0.00 Absolute Nucleated RBC 0.00 Immature Gran % 0 Nucleated RBC % 0 Sodium 143 Potassium 4.0 Chloride 107 Carbon Dioxide 26.7 Anion Gap 9 BUN 9 Creatinine 1.0 Estim Creat Clear Calc 90.5 eGFR > 60 BUN/Creatinine Ratio 9 L Glucose 88 Calculated Osmolality 282 Calcium 9.2 Vancomycin Trough 8.4 Quality Measures Quality Measures VTE prophylaxis Assessment & Plan Assessment Current Active Medications: Generic Name Dose Route Start Last Admin Trade Name Freq PRN Reason Stop Dose Admin Acetaminophen 650 mg 11/22/24 08:49 12/02/24 03:34 Acetaminophen 325 Mg Tablet PO 12/17/24 13:42 650 mg Q6H PRN Administration PAIN 1-3 OR FEVER > 101 Protocol Bisacodyl 10 mg 11/17/24 13:37 Bisacodyl 5 Mg Tabec PO 12/17/24 13:36 QDAY PRN CONSTIPATION Protocol Dextrose 25 ml 11/17/24 16:01 Dextrose 50%-Water Inj 50 Ml Syringe IV 12/17/24 16:00 Q15MIN PRN BG 50-70 responsive npo pt Dextrose 50 ml 11/17/24 16:01 Dextrose 50%-Water Inj 50 Ml Syringe IV 12/17/24 16:00 Q15MIN PRN BG <50 OR BG <70 & pt unresponsive Enoxaparin Sodium 40 mg 11/20/24 12:15 12/02/24 09:22 Enoxaparin Sod Inj 40 Mg/0.4 Ml Syringe SC 12/04/24 12:14 40 mg QDAY APOORVA Administration Folic Acid 1 mg 11/20/24 09:00 12/02/24 09:22 Folic Acid 1 Mg Tablet PO 12/20/24 08:59 1 mg QDAY APOORVA Administration Gabapentin 100 mg 11/20/24 14:00 12/02/24 05:36 Gabapentin 100 Mg Capsule PO 12/20/24 13:59 100 mg TID APOORVA Administration Glucagon 1 mg 11/17/24 16:01 Glucagon Inj 1 Mg Vial IM Q15MIN PRN BG <70, and no IV access Ceftriaxone Sodium 2 gm/ 50 mls @ 100 mls/hr 11/27/24 10:28 12/02/24 09:21 Sodium Chloride IV 12/04/24 10:27 100 mls/hr QDAY APOORVA Administration Vancomycin/Sodium Chloride 200 mls @ 120 mls/hr 11/28/24 10:00 12/01/24 21:07 Vancomycin/Ns 1 Gm Ivpb IV 12/05/24 09:59 120 mls/hr Q12H APOORVA Administration Protocol Lidocaine 1 patch 11/24/24 11:16 11/26/24 21:30 Lidocaine 5% 1 Patch TOP 12/24/24 11:15 1 patch UD PRN Administration PAIN Protocol Lorazepam 0.5 mg 11/29/24 09:50 11/30/24 11:54 Lorazepam 0.5 Mg Tablet PO 12/04/24 09:49 0.5 mg Q4HR PRN Administration CIWA Score 2-6 Lorazepam 1 mg 11/29/24 09:50 11/29/24 20:19 Lorazepam 0.5 Mg Tablet PO 12/04/24 09:49 1 mg Q4HR PRN Administration CIWA SCORE 7-11 Lorazepam 2 mg 11/29/24 09:50 Lorazepam 0.5 Mg Tablet PO 12/04/24 09:49 Q4HR PRN CIWA SCORE 12-15 Pantoprazole Sodium 40 mg 11/18/24 09:00 12/02/24 09:22 Pantoprazole 40 Mg Tablet PO 12/18/24 08:59 40 mg BID APOORVA Administration Pharmacy Consult 1 each 11/27/24 09:00 Vancomycin Pharmacy To Dose 1 Each Each IV 12/27/24 08:59 QDAY PRN PROTOCOL Prochlorperazine Maleate 5 mg 11/19/24 10:00 11/25/24 19:53 Prochlorperazine Maleate 5 Mg Tablet PO 12/19/24 09:59 5 mg Q6HR PRN Administration NAUSEA OR VOMITING Sennosides 1 tab 11/18/24 09:00 12/02/24 09:22 Senna Tablet PO 12/18/24 08:59 1 tab QDAY APOORVA Administration Protocol Thiamine HCl 100 mg 11/20/24 09:00 12/02/24 09:23 Thiamine 100 Mg Tablet PO 12/20/24 08:59 100 mg QDAY APOORVA Administration Zinc Acetate/Diphenhydramine 0 gm 11/17/24 18:27 11/22/24 14:35 Diphenhydramine/Zn Acet 2% Cr 30 Gm Tube TOP 12/17/24 18:26 1 applicatio Q6HR PRN Administration RASH Zolpidem Tartrate 5 mg 11/22/24 21:00 12/01/24 22:02 Zolpidem 5 Mg Tablet PO 12/22/24 20:59 5 mg HS APOORVA Administration Plan Patient still in hospital, pending transfer to OMFS/ENT 29-year-old male history of alcohol use and withdrawal, cirrhosis, and esophageal varices. Patient was admitted for alcohol withdrawal. ED course: Initial vitals include temperature 98.3, blood pressure 133/86, pulse 95, respirations 16, 95% on room air. Cervical spine showed no acute fracture, C5- C6 mild to moderate left neural foraminal stenosis. Head CT was negative. Chest x-ray was negative for aspiration pneumonia. CT abdomen showed gastritis pattern, cholelithiasis, negative for cholecystitis. Notable labs include hemoglobin 11.4, creatinine 0.9, magnesium 1.8, AST 57, ALT 49, alkaline phosphatase 168, total creatinine kinase 289, Pro-Thai 0.05, lipase 44. UA negative. Urine toxicology negative for drugs, positive for alcohol 394.4. Patient received diazepam 10 mg x 1, ibuprofen 800 mg x 1. Patient was transferred to ICU due to high CIWA score of 26. Hospital course: Patient required ICU admission for severe alcohol withdrawal (CIWA 26) and was managed with precedex drip. The patient's clinical status improved significantly following transfer to the floor, having been successfully weaned off chlordiazepoxide. Blood culture from 11/17 was positive for Staph hominis from aerobic bottles, however repeat blood cultures were 11/19 were negative. Transthoracic echo was done and did not show any vegetations. Cardiology determined a Tranesophageal echo was unnecessary. Throughout admission, persistent, scattered spinal pain remained a concern, localized with point tenderness at C7 and T7, despite negative CT imaging of the cervical and thoracic spine for fracture or disc narrowing. There were no signs of spinal cord compression, as the patient denied saddle anesthesia, bilateral lower extremity numbness, or loss of bowel/bladder control. An MRI with contrast of cervical and thoracic spine was done to rule out a potential epidural abscess as the cause of the pain. MRI of cervical spine showed 1.5 cm soft tissue abscess anterior to the C7 vertebral body. Patient requires transfer for urgernt OMFS/ENT evaluation. Patient emperically started on Vancomycin and Ceftriaxone. Patient remained afebrile and no leukocytosis throughout hospital admission. Discharge instructions: Continue to take buspirone 7.5 mg tablet by mouth twice a day Take folic acid 1 mg tablet and vitamin B1 100 mg tablet once a day each for nutritional support Take naltrexone 50 mg tablet by mouth once a day for alcohol use disorder Continue taking Protonix 40 mg tablet daily Please follow-up with gastroenterology as you have history of esophageal varices Please follow-up with your PCP within 1 week of discharge and ask your PCP to refer you to an alcohol use disorder program, if you do not have a PCP please follow-up at the [facility] [address] [place] [address] If your symptoms worsen or if you develop new chest pain, shortness of breath, withdrawal symptoms or bleeding from mouth or anus - please come back to the ED immediately Admission diagnoses: #MSSA bacteremia #Soft tissue abscess anterior to the C7 vertebral body #History of cirrhosis #History of esophageal varices (Grade I) #Alcohol withdrawal, resolved #Alcohol use disorder Case discussed with my attending Dr. Reed, and senior resident, Dr. Gale Purdy MD PGY-1
[2024-12-02 12:00] VITALS: BP 119/74; PULSE 61; RESP 17; TEMP 36.4; O2SAT 96
[2024-12-02] MEDS: VANCOMYCIN/D5W 1,250 MG IVPB 250 ML 120 MG IV ×2 (12:10→21:08)
[2024-12-02] MEDS: DiphenhydrAMINE/ZN ACET 2% CR 30 GM TUBE TOP (14:21)
[2024-12-02 16:00] VITALS: BP 120/69; PULSE 58; RESP 16; TEMP 36.6; O2SAT 97
--- NOTE | 2024-12-02 17:41 | PC.SS ---
Lean Manufacturing Engineer was informed by Dr. Beasley patient will be needing a mental health evaluation, as he is now medically clear from their standpoint. Lean Manufacturing Engineer and FRAUD ANALYST Karen explained patient is not considered medically clear due to being transferred for HLOC need. Lean Manufacturing Engineer explained patient would be followed by [facility] and evaluated if transfer to HLOC is cancelled.
--- NOTE | 2024-12-02 18:42 | ESPR_ITS ---
Documentation for date of: 12/02/24 Subjective Subjective Interval history: Patient evaluated hemoglobin hematocrit 10.7 and 33.8 Exam Vital Signs Temp Pulse Resp BP Pulse Ox O2 Del Method 97.8 F 58 L 16 120/69 97 Room Air 12/02/24 16:00 12/02/24 16:00 12/02/24 16:00 12/02/24 16:00 12/02/24 16:00 12/02/24 16:00 Objective Labs 12/02/24 05:28 12/02/24 05:28 Labs: Laboratory Results - last 24 hr 12/02/24 12/02/24 05:28 09:23 WBC 4.3 RBC 3.64 L Hgb 10.7 L Hct 33.8 L MCV 93 MCH 29.4 MCHC 31.7 RDW Std Deviation 60.2 H Plt Count 267 Neut % (Auto) 43 Lymph % (Auto) 31 [place] % (Auto) 17 H Eos % (Auto) 7 Baso % (Auto) 2 Neut # (Auto) 1.8 Lymph # (Auto) 1.3 [place] # (Auto) 0.7 Eos # (Auto) 0.3 Baso # (Auto) 0.1 Immature Gran # (Auto) 0.00 Absolute Nucleated RBC 0.00 Immature Gran % 0 Nucleated RBC % 0 Sodium 143 Potassium 4.0 Chloride 107 Carbon Dioxide 26.7 Anion Gap 9 BUN 9 Creatinine 1.0 Estim Creat Clear Calc 90.5 eGFR > 60 BUN/Creatinine Ratio 9 L Glucose 88 Calculated Osmolality 282 Calcium 9.2 Vancomycin Trough 8.4 Impressions Impression: Stable upper GI bleed 1+ esophageal varices Hypertensive portal gastropathy Continue current management Assessment & Plan A&P Narrative coag neg alonzo in bc in ED c/o fever cirrhosis with normal inr and plts but low counts. hx of heavy etoh use noted role of abx unclear to me. ok to get a trans thoracic echo and if neg then stop and re evaluate rx we will see briefly tuesday am he wants something for anxiety. but may have been the reason he was drinking etoh will see again prn Time Spent With Patient Time: Total time spent is greater than 50% in coordination of care (as documented) at patient's floor/unit and/or counseling patient:
[2024-12-02 19:39] VITALS: BP 117/66; PULSE 65; RESP 18; TEMP 36.5; O2SAT 96
[2024-12-02] MEDS: ZOLPIDEM 5 MG TABLET PO (22:06)
[2024-12-02 23:36] VITALS: BP 110/69; PULSE 65; RESP 18; TEMP 36.6; O2SAT 97
[2024-12-03 04:00] VITALS: BP 121/63; PULSE 52; RESP 20; TEMP 36.2; O2SAT 95
[2024-12-03 05:25] VITALS: BMI 26.2
[2024-12-03] MEDS: GABAPENTIN 100 MG CAPSULE PO ×3 (05:52→22:30)
[2024-12-03 06:40] LABS: Basophils # (Auto) 0.1 Thou/mm3 (0.0-0.2); Basophils % (Auto) 1 % (0-2.5); Eosinophils # (Auto) 0.3 Thou/mm3 (0.0-0.5); Eosinophils % (Auto) 8 % (0-10); Hematocrit 36.1 % (41.0-53.0); Hemoglobin 11.6 g/dL (13.5-16.0); Immature Granulocytes Auto 0.01 Thou/mm3 (0.00-0.00); Lymphocytes # (Auto) 1.3 Thou/mm3 (1.0-4.8); Lymphocytes % (Auto) 31 % (10-50); Mean Corpuscular HGB Conc 32.1 g/dl (31.0-37.0); Mean Corpuscular Hemoglobin 29.1 pg (25.0-35.0); Mean Corpuscular Volume 91 fL (80-100); Monocytes # (Auto) 0.7 Thou/mm3 (0.0-0.8); Monocytes % (Auto) 17 % (0-12); Neutrophils # (Auto) 1.8 Thou/mm3 (1.8-7.7); Neutrophils % (Auto) 43 % (37-80); Nucleated Red Blood Cell # 0.00 Thou/mm3 (0.00-0.00); Nucleated Red Blood Cell % 0 /100 WBC (0); Platelet Count 196 Thou/mm3 (140-440); RDW Standard Deviation 59.1 fL (35.1-43.9); Red Blood Count 3.98 Miln/mm3 (4.50-5.90); White Blood Count 4.2 Thou/mm3 (3.8-10.6)
[2024-12-03 07:00] LABS: Anion Gap 12 (7-16); BUN/Creatinine Ratio 8 Ratio (12-20); Blood Urea Nitrogen 7 mg/dL (9-23); Calcium 9.7 mg/dL (8.3-10.6); Carbon Dioxide 25.2 mMol/L (20.0-31.0); Chloride 105 mMol/L (98-107); Creatinine (Component) 0.9 mg/dL (0.6-1.3); Estimated Creatinine Clearance 95.2 mL/min (>60); Glucose 85 mg/dL (74-106); Osmolality,Calculated 280 (275-295); Potassium 4.2 mMol/L (3.4-5.1); Sodium 142 mMol/L (136-145); eGFR > 60 See Note
[2024-12-03 08:00] VITALS: BP 120/60; PULSE 57; RESP 20; TEMP 36.1; O2SAT 96
[2024-12-03] MEDS: cefTRIAXone 2 GM in SODIUM CHLORIDE 0.9% (Popper) 50 ML IV (08:33)
[2024-12-03] MEDS: THIAMINE 100 MG TABLET PO (08:34)
[2024-12-03] MEDS: FOLIC ACID 1 MG TABLET PO (08:34)
[2024-12-03] MEDS: ENOXAPARIN SOD INJ 40 MG/0.4 ML SYRINGE SC (08:34)
[2024-12-03] MEDS: PANTOPRAZOLE 40 MG TABLET PO ×2 (08:34→20:30)
[2024-12-03] MEDS: ACETAMINOPHEN 325 MG TABLET 650 MG PO (08:50)
--- NOTE | 2024-12-03 09:14 | PC.CC ---
Addendum entered by Ricky Baltazar RN 12/03/24 18:17: 1815: called [facility] and spoke to Yvonne to cancel transfer request. 1813: called [facility] to cancel transfer request, left VM. Addendum entered by Ricky Baltazar RN 12/03/24 18:12: discussed the case with team during the multidisciplinary rounding, information provided to Dr. Martínez with Dr. Jorge Osorio contact information. Per Mark w/ [facility], please send video slides to [phone]. Per Dr. Reed he reached out to Dr. Osorio and left VM. I reached out to Harish w/ [facility], she questioned the need for OMFS/ENT and needs documentation as this appears to be neuro. Lisa and I discussed w/ Dr. Reed about the service request being questioned by the other facilities. Dr. Reed made aware to document the the specifically why OMFS/ENT. He then called back and stated to cancel the transfer request because he heard back from Dr. Osorio with recs. Addendum entered by Ricky Baltazar RN 12/03/24 12:33: 1202: Mark called back, ENT MD request video slices of the MRI and CT. Per Mark, the report does not express a definitive abcess. Called Dr. Reed and residents to inform them, however unable to reach them at this time. Will reach out again in 30 min. Addendum entered by Ricky Baltazar RN 12/03/24 11:31: 1126: Call Mark back at [facility] and to inform her that OMFS/ENT is the service line requested. 1125: Dr. Martínez called back and she stat that neurosx was previously consulted and they recommended OMFS due to the abcess location prevertebral. 1119: Spoke to Dr. Martínez informed her of the request for clarification for the service line. She stated she will review and call back. Addendum entered by Ricky Baltazar RN 12/03/24 11:14: 1112: Reached out to team b, unable to get ahold of any of the residents or attending at this time. Will reach out in 15 min. Addendum entered by Ricky Baltazar RN 12/03/24 09:48: 0917: Mark called back confirming that OMFS is the appropriate service for an epidural abcess. I reached out to the team, however they are in rounding and are not avail at this time. I will reach out to the team after rounding for confirmation and will call Mark back. Original Note: spoke to Sheryl Ramirez, she stated that they are contracted with [facility]. She also informed me that [facility] will need to request auth. Called [facility], provided the information that Sheryl provided. Case will be escalated to the case supervisor and will call me back on how to proceed.
[2024-12-03] MEDS: VANCOMYCIN/D5W 1,250 MG IVPB 250 ML 120 MG IV ×2 (09:44→22:30)
--- NOTE | 2024-12-03 11:16 | ESPR_ITS ---
<Statement entered by Beckie Martínez MD - 12/04/24 07:38> Reason for Transfer: This patient requires urgent Neurosurgical evaluation due to the presence of a 1.5 cm soft tissue abscess anterior to the C7 vertebral body, as identified on MRI of the cervical spine. The abscess is thought to be the cause of the patient?s persistent spinal pain. Admission Diagnosis: * Chronic alcohol use disorder * Alcohol withdrawal syndrome, requiring ICU care * Cirrhosis * Esophageal varices * Positive blood cultures for Staphylococcus hominis * Persistent spinal pain with a soft tissue abscess at C7 Hospital Course: The patient was initially admitted for alc withdrawel and was subsequently transferred to the ICU for management of severe alcohol withdrawal. The patient's condition improved significantly with proper management, including the successful weaning of chlordiazepoxide. Blood cultures from 11/17 were positive for Staph hominis but subsequent cultures on 11/19 were negative, indicating that the initial Gram-positive cocci were likely a contamination. A transthoracic echocardiogram was done and did not show any vegetations, and cardiology concluded that a transesophageal echocardiogram was unnecessary. Throughout the hospitalization, the patient continued to experience persistent spinal pain. There were no signs of spinal cord compression; the patient denied saddle anesthesia, bilateral lower extremity numbness, or loss of bowel/bladder control. An MRI of the cervical and thoracic spine with contrast was performed to rule out an epidural abscess. The MRI of the cervical spine revealed a 1.5 cm soft tissue abscess anterior to the C7 vertebral body, which is likely contributing to the patient?s symptoms. Given the need for urgent surgical evaluation, the decision was made to transfer the patient initially for neurosurgical eval, however after multiple attempts Neurosurgery denied the transfer and recomended OMFS or ENT. Current Medications: Vancomycin (empirically started) Ceftriaxone (empirically started) Condition at Transfer: * Spinal abscess identified on MRI * Stable from a cardiovascular and respiratory standpoint * Improvement in alcohol withdrawal symptoms * No evidence of spinal cord compression at this point * Awaiting neurosurgical evaluation for potential surgical intervention Plan: * Transfer to higher level of facility with neurosurgical services and/or ENT services for further management of abscess * Continue Vancomycin and Ceftriaxone until further directed by neurosurgery * Monitor for signs of neurological compromise Case was discussed with attending physician Dr. ORONA Documentation for date of: 12/03/24 Subjective Subjective Interval history: Patient seen at bedside. No acute overnight events. Patient denies any chest pain, shortness of breath, abdominal pain, nausea, vomiting, dizziness. Patient's vitals and labs were reviewed. Pending transfer to oral maxillofacial surgery/ENT. Continues on IV antibiotics. Exam Vital Signs Temp Pulse Resp BP Pulse Ox O2 Del Method 97 F 57 L 20 120/60 96 Room Air 12/03/24 08:00 12/03/24 08:00 12/03/24 08:00 12/03/24 08:00 12/03/24 08:00 12/03/24 08:00 Narrative Exam General: No acute distress, well nourished, AAO x3, mild tremors hands Eye: PERRL, EOMI, normal conjunctiva, no scleral icterus HENT: Normocephalic, atraumatic, hearing intact to conversation at normal volume, moist oral mucosa Neck: Supple, non-tender, no JVD, no lymphadenopathy Lungs: Non-labored respirations, symmetric chest rise, Clear to auscultate bilaterally, No wheezing, rhonchi, crackles Heart: Peripheral pulses intact bilaterally, Regular Rate and Rhythm. Abdomen: Soft, non-distended, no palpable masses, nontender Musculoskeletal: Tenderness to palpation over the vertebral bodies from cervical to thoracic. Normal range of motion and strength, No cyanosis or edema, No visible joint swelling Skin: Skin is warm, dry. Psychiatric: Cooperative, appropriate mood and affect, Awake and alert, not agitated Neuro: Cranial nerves II-XII grossly intact. Strength 5/5 throughout. Sensations intact to light touch. Objective Labs 12/03/24 05:47 12/03/24 05:47 Labs: Laboratory Results - last 24 hr 12/03/24 05:47 WBC 4.2 RBC 3.98 L Hgb 11.6 L Hct 36.1 L MCV 91 MCH 29.1 MCHC 32.1 RDW Std Deviation 59.1 H Plt Count 196 D Neut % (Auto) 43 Lymph % (Auto) 31 [place] % (Auto) 17 H Eos % (Auto) 8 Baso % (Auto) 1 Neut # (Auto) 1.8 Lymph # (Auto) 1.3 [place] # (Auto) 0.7 Eos # (Auto) 0.3 Baso # (Auto) 0.1 Immature Gran # (Auto) 0.01 H Absolute Nucleated RBC 0.00 Immature Gran % 0 Nucleated RBC % 0 Sodium 142 Potassium 4.2 Chloride 105 Carbon Dioxide 25.2 Anion Gap 12 BUN 7 L Creatinine 0.9 Estim Creat Clear Calc 95.2 eGFR > 60 BUN/Creatinine Ratio 8 L Glucose 85 Calculated Osmolality 280 Calcium 9.7 Quality Measures Quality Measures VTE prophylaxis Assessment & Plan Assessment Current Active Medications: Generic Name Dose Route Start Last Admin Trade Name Freq PRN Reason Stop Dose Admin Acetaminophen 650 mg 11/22/24 08:49 12/03/24 08:50 Acetaminophen 325 Mg Tablet PO 12/17/24 13:42 650 mg Q6H PRN Administration PAIN 1-3 OR FEVER > 101 Protocol Bisacodyl 10 mg 11/17/24 13:37 Bisacodyl 5 Mg Tabec PO 12/17/24 13:36 QDAY PRN CONSTIPATION Protocol Dextrose 25 ml 11/17/24 16:01 Dextrose 50%-Water Inj 50 Ml Syringe IV 12/17/24 16:00 Q15MIN PRN BG 50-70 responsive npo pt Dextrose 50 ml 11/17/24 16:01 Dextrose 50%-Water Inj 50 Ml Syringe IV 12/17/24 16:00 Q15MIN PRN BG <50 OR BG <70 & pt unresponsive Enoxaparin Sodium 40 mg 11/20/24 12:15 12/03/24 08:34 Enoxaparin Sod Inj 40 Mg/0.4 Ml Syringe SC 12/04/24 12:14 40 mg QDAY APOORVA Administration Folic Acid 1 mg 11/20/24 09:00 12/03/24 08:34 Folic Acid 1 Mg Tablet PO 12/20/24 08:59 1 mg QDAY APOORVA Administration Gabapentin 100 mg 11/20/24 14:00 12/03/24 05:52 Gabapentin 100 Mg Capsule PO 12/20/24 13:59 100 mg TID APOORVA Administration Glucagon 1 mg 11/17/24 16:01 Glucagon Inj 1 Mg Vial IM Q15MIN PRN BG <70, and no IV access Ceftriaxone Sodium 2 gm/ 50 mls @ 100 mls/hr 11/27/24 10:28 12/03/24 08:33 Sodium Chloride IV 12/04/24 10:27 100 mls/hr QDAY APOORVA Administration Vancomycin HCl/Dextrose 250 mls @ 120 mls/hr 12/02/24 11:00 12/03/24 09:44 Vancomycin/D5w 1,250 Mg Ivpb IV 12/09/24 10:59 120 mls/hr BID@1000,2200 APOORVA Administration Protocol Lidocaine 1 patch 11/24/24 11:16 11/26/24 21:30 Lidocaine 5% 1 Patch TOP 12/24/24 11:15 1 patch UD PRN Administration PAIN Protocol Lorazepam 0.5 mg 11/29/24 09:50 11/30/24 11:54 Lorazepam 0.5 Mg Tablet PO 12/04/24 09:49 0.5 mg Q4HR PRN Administration CIWA Score 2-6 Lorazepam 1 mg 11/29/24 09:50 12/02/24 18:26 Lorazepam 0.5 Mg Tablet PO 12/04/24 09:49 1 mg Q4HR PRN Administration CIWA SCORE 7-11 Lorazepam 2 mg 11/29/24 09:50 Lorazepam 0.5 Mg Tablet PO 12/04/24 09:49 Q4HR PRN CIWA SCORE 12-15 Pantoprazole Sodium 40 mg 11/18/24 09:00 12/03/24 08:34 Pantoprazole 40 Mg Tablet PO 12/18/24 08:59 40 mg BID APOORVA Administration Pharmacy Consult 1 each 11/27/24 09:00 Vancomycin Pharmacy To Dose 1 Each Each IV 12/27/24 08:59 QDAY PRN PROTOCOL Prochlorperazine Maleate 5 mg 11/19/24 10:00 11/25/24 19:53 Prochlorperazine Maleate 5 Mg Tablet PO 12/19/24 09:59 5 mg Q6HR PRN Administration NAUSEA OR VOMITING Sennosides 1 tab 11/18/24 09:00 12/03/24 08:34 Senna Tablet PO 12/18/24 08:59 1 tab QDAY APOORVA Administration Protocol Thiamine HCl 100 mg 11/20/24 09:00 12/03/24 08:34 Thiamine 100 Mg Tablet PO 12/20/24 08:59 100 mg QDAY APOORVA Administration Tramadol HCl 50 mg 12/03/24 08:58 Tramadol Hcl 50 Mg Tablet PO 12/08/24 08:57 Q6HR PRN PAIN SCALE 4-10(Mod-Sev Zinc Acetate/Diphenhydramine 0 gm 11/17/24 18:27 12/02/24 14:21 Diphenhydramine/Zn Acet 2% Cr 30 Gm Tube TOP 12/17/24 18:26 1 applicatio Q6HR PRN Administration RASH Zolpidem Tartrate 5 mg 11/22/24 21:00 12/02/24 22:06 Zolpidem 5 Mg Tablet PO 12/22/24 20:59 5 mg HS [facility] Administration Plan Patient still in hospital, pending transfer to OMFS/ENT 29-year-old male history of alcohol use and withdrawal, cirrhosis, and esophageal varices. Patient was admitted for alcohol withdrawal. ED course: Initial vitals include temperature 98.3, blood pressure 133/86, pulse 95, respirations 16, 95% on room air. Cervical spine showed no acute fracture, C5- C6 mild to moderate left neural foraminal stenosis. Head CT was negative. Chest x-ray was negative for aspiration pneumonia. CT abdomen showed gastritis pattern, cholelithiasis, negative for cholecystitis. Notable labs include hemoglobin 11.4, creatinine 0.9, magnesium 1.8, AST 57, ALT 49, alkaline phosphatase 168, total creatinine kinase 289, Pro-Thai 0.05, lipase 44. UA negative. Urine toxicology negative for drugs, positive for alcohol 394.4. Patient received diazepam 10 mg x 1, ibuprofen 800 mg x 1. Patient was transferred to ICU due to high CIWA score of 26. Hospital course: Patient required ICU admission for severe alcohol withdrawal (CIWA 26) and was managed with precedex drip. The patient's clinical status improved significantly following transfer to the floor, having been successfully weaned off chlordiazepoxide. Blood culture from 11/17 was positive for Staph hominis from aerobic bottles, however repeat blood cultures were 11/19 were negative. Transthoracic echo was done and did not show any vegetations. Cardiology determined a Tranesophageal echo was unnecessary. Throughout admission, persistent, scattered spinal pain remained a concern, localized with point tenderness at C7 and T7, despite negative CT imaging of the cervical and thoracic spine for fracture or disc narrowing. There were no signs of spinal cord compression, as the patient denied saddle anesthesia, bilateral lower extremity numbness, or loss of bowel/bladder control. An MRI with contrast of cervical and thoracic spine was done to rule out a potential epidural abscess as the cause of the pain. MRI of cervical spine showed 1.5 cm soft tissue abscess anterior to the C7 vertebral body. Patient requires transfer for urgernt OMFS/ENT evaluation. Patient emperically started on Vancomycin and Ceftriaxone. Patient remained afebrile and no leukocytosis throughout hospital admission. Discharge instructions: Continue to take buspirone 7.5 mg tablet by mouth twice a day Take folic acid 1 mg tablet and vitamin B1 100 mg tablet once a day each for nutritional support Take naltrexone 50 mg tablet by mouth once a day for alcohol use disorder Continue taking Protonix 40 mg tablet daily Please follow-up with gastroenterology as you have history of esophageal varices Please follow-up with your PCP within 1 week of discharge and ask your PCP to refer you to an alcohol use disorder program, if you do not have a PCP please follow-up at the [facility] [address] [place] [address] If your symptoms worsen or if you develop new chest pain, shortness of breath, withdrawal symptoms or bleeding from mouth or anus - please come back to the ED immediately Admission diagnoses: #MSSA bacteremia #Soft tissue abscess anterior to the C7 vertebral body #History of cirrhosis #History of esophageal varices (Grade I) #Alcohol withdrawal, resolved #Alcohol use disorder Case discussed with my attending Dr. Oron[place], and senior resident, Dr. Gale Purdy MD PGY-1 Attending Provider Attestation/Addendum 29 year old male with alcohol use disorder. Came in for alcohol withdraw and needed ICU level of care for high CIWA. Furthermore, patient was downgraded and noted to have cervical pain. MRI of the cervical spine noted soft tissues abscess at the level of C7. Thus discussed transfer with [facility] neurosurgery team who looked at the MRI and noted that the abscess is actually anterior of the C7 vertebral body and not in the vertebral body thus recommended ENT. As a result, will transfer patient for ENT. I reviewed above note and agree with findings and plans. I have also personally examined the patient with medicine team and went over assessment and plan with medical team including biomedical engineering internship and resident physician.
[2024-12-03 12:00] VITALS: BP 118/64; PULSE 54; RESP 20; TEMP 36.1; O2SAT 96
[2024-12-03 16:00] VITALS: BP 113/70; PULSE 56; RESP 20; TEMP 36.8; O2SAT 97
--- NOTE | 2024-12-03 16:18 | PC.SS ---
SS and SOCIAL SERVICE AGENCY DIRECTOR met with patient who remains waiting on medical clearance to conduct crisis evaluation as well as pending a transfer for higher level of care.? SS asked patient if he currently had any thoughts of harming himself. Patient responded he did not. Patient reports no history of mental illness or any history of suicidal ideation. No prior attempts of harming himself. Patient appeared pleasant, in good spirits, openly talking, forthcoming.? Patient is eager to go home. He has two children. Patient has a history of alcohol abuse. He states he can return home with parents. He?s had his parents visiting him while in hospital. Patient?s sleeping patterns have improved since physician team provided medication to help with sleep.? Patient verbalized he?s always had problems sleeping well through the night. Due to this, patient was drinking excessively to help him sleep. SS to follow up as needed.
[2024-12-03] MEDS: DEXAMETHASONE SOD PHOS INJ 10 MG/ML VIAL IVP (18:23)
[2024-12-03 20:00] VITALS: BP 116/73; PULSE 62; RESP 17; TEMP 36.6; O2SAT 97
[2024-12-03] MEDS: ZOLPIDEM 5 MG TABLET PO (20:29)
--- NOTE | 2024-12-03 21:55 | ESPR_ITS ---
Documentation for date of: 12/03/24 Subjective Subjective Interval history: Hemoglobin hematocrit 11.6 and 36.1 with a platelet count of 196,000 Exam Vital Signs Temp Pulse Resp BP Pulse Ox O2 Del Method 98.2 F 56 L 20 113/70 97 Room Air 12/03/24 16:00 12/03/24 16:00 12/03/24 16:00 12/03/24 16:00 12/03/24 16:00 12/03/24 16:00 Objective Labs 12/03/24 05:47 12/03/24 05:47 Labs: Laboratory Results - last 24 hr 12/03/24 05:47 WBC 4.2 RBC 3.98 L Hgb 11.6 L Hct 36.1 L MCV 91 MCH 29.1 MCHC 32.1 RDW Std Deviation 59.1 H Plt Count 196 D Neut % (Auto) 43 Lymph % (Auto) 31 [place] % (Auto) 17 H Eos % (Auto) 8 Baso % (Auto) 1 Neut # (Auto) 1.8 Lymph # (Auto) 1.3 [place] # (Auto) 0.7 Eos # (Auto) 0.3 Baso # (Auto) 0.1 Immature Gran # (Auto) 0.01 H Absolute Nucleated RBC 0.00 Immature Gran % 0 Nucleated RBC % 0 Sodium 142 Potassium 4.2 Chloride 105 Carbon Dioxide 25.2 Anion Gap 12 BUN 7 L Creatinine 0.9 Estim Creat Clear Calc 95.2 eGFR > 60 BUN/Creatinine Ratio 8 L Glucose 85 Calculated Osmolality 280 Calcium 9.7 Impressions Impression: 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 hx of heavy etoh use noted role of abx unclear to me. ok to get a trans thoracic echo and if neg then stop and re evaluate rx we will see briefly tuesday am he wants something for anxiety. but may have been the reason he was drinking etoh will see again prn Time Spent With Patient Time: Total time spent is greater than 50% in coordination of care (as documented) at patient's floor/unit and/or counseling patient:
[2024-12-03 22:08] LABS: Vancomycin,Trough 9.5 mcg/mL (5.0-10.0)
[2024-12-04] VITALS: BP 124/74; PULSE 58; RESP 17; TEMP 36.7; O2SAT 97
--- NOTE | 2024-12-04 | XR_ITS ---
Examination: MRI cervical spine without contrast MRI cervical spine with intravenous contrast Date and time of exam: November 26, 2024, 1907 hours INDICATIONS: Cirrhosis, esophageal varices, neck pain, abnormal soft tissue enhancement anterior to the cervical vertebral bodies up to 15 mm on MRI November 26, 2024 Technique: Multiple MRI axial and sagittal sections cervical spine pre and post intravenous administration 13 cc gadolinium Sagittal T2-weighted images, TR 3500, TE 118 T1 weighted transverse sections, TR 688 T8.5, T2-weighted sagittal sections T1 weighted sagittal sections TR 621, TE 30 T2 axial sections, TR 4, 190, TE 84. Findings: Adequate alignment cervical vertebral bodies No cervical fracture No abnormal osseous enhancement Prevertebral soft tissue enhancement extending from C5 to T2 is again noted, again measuring up to 15 mm No abnormal enhancement in the cervical cord IMPRESSION: Stable precervical abscess compared to November 26, 2024
[2024-12-04] MEDS: DEXAMETHASONE SOD PHOS INJ 10 MG/ML VIAL IVP ×2 (02:30→10:47)
[2024-12-04 03:53] VITALS: BP 117/62; PULSE 68; RESP 18; TEMP 36.4; O2SAT 95
[2024-12-04 05:23] LABS: Basophils # (Auto) 0.0 Thou/mm3 (0.0-0.2); Basophils % (Auto) 0 % (0-2.5); Eosinophils # (Auto) 0.0 Thou/mm3 (0.0-0.5); Eosinophils % (Auto) 0 % (0-10); Hematocrit 37.7 % (41.0-53.0); Hemoglobin 12.4 g/dL (13.5-16.0); Immature Granulocytes Auto 0.01 Thou/mm3 (0.00-0.00); Lymphocytes # (Auto) 0.9 Thou/mm3 (1.0-4.8); Lymphocytes % (Auto) 15 % (10-50); Mean Corpuscular HGB Conc 32.9 g/dl (31.0-37.0); Mean Corpuscular Hemoglobin 29.5 pg (25.0-35.0); Mean Corpuscular Volume 90 fL (80-100); Monocytes # (Auto) 0.1 Thou/mm3 (0.0-0.8); Monocytes % (Auto) 1 % (0-12); Neutrophils # (Auto) 5.3 Thou/mm3 (1.8-7.7); Neutrophils % (Auto) 84 % (37-80); Nucleated Red Blood Cell # 0.00 Thou/mm3 (0.00-0.00); Nucleated Red Blood Cell % 0 /100 WBC (0); Platelet Count 208 Thou/mm3 (140-440); RDW Standard Deviation 57.1 fL (35.1-43.9); Red Blood Count 4.21 Miln/mm3 (4.50-5.90); White Blood Count 6.3 Thou/mm3 (3.8-10.6)
[2024-12-04] MEDS: GABAPENTIN 100 MG CAPSULE PO ×3 (05:37→21:17)
[2024-12-04 05:40] LABS: Anion Gap 12 (7-16); BUN/Creatinine Ratio 9 Ratio (12-20); Blood Urea Nitrogen 9 mg/dL (9-23); Calcium 10.0 mg/dL (8.3-10.6); Carbon Dioxide 24.8 mMol/L (20.0-31.0); Chloride 101 mMol/L (98-107); Creatinine (Component) 1.0 mg/dL (0.6-1.3); Estimated Creatinine Clearance 85.7 mL/min (>60); Glucose 157 mg/dL (74-106); Osmolality,Calculated 277 (275-295); Potassium 4.5 mMol/L (3.4-5.1); Sodium 138 mMol/L (136-145); eGFR > 60 See Note
[2024-12-04 06:00] VITALS: BMI 26.2
[2024-12-04 08:00] VITALS: BP 116/67; PULSE 82; RESP 18; TEMP 37; O2SAT 96
[2024-12-04] MEDS: cefTRIAXone 2 GM in SODIUM CHLORIDE 0.9% (Popper) 50 ML IV (08:19)
[2024-12-04] MEDS: FOLIC ACID 1 MG TABLET PO (08:19)
[2024-12-04] MEDS: ENOXAPARIN SOD INJ 40 MG/0.4 ML SYRINGE SC (08:19)
[2024-12-04] MEDS: THIAMINE 100 MG TABLET PO (08:19)
[2024-12-04] MEDS: PANTOPRAZOLE 40 MG TABLET PO ×2 (08:19→21:17)
--- NOTE | 2024-12-04 09:29 | PC.SS ---
Update: Plan is for the patient to complete 3 sessions of IV steroids. Regimen to be completed later this evening. Mental health assessment pending medical clearance. Transfer has been cancelled.
[2024-12-04 09:43] LABS: Anion Gap 11 (7-16); BUN/Creatinine Ratio 11 Ratio (12-20); Blood Urea Nitrogen 10 mg/dL (9-23); Calcium 10.2 mg/dL (8.3-10.6); Carbon Dioxide 24.8 mMol/L (20.0-31.0); Chloride 101 mMol/L (98-107); Creatinine (Component) 0.9 mg/dL (0.6-1.3); Estimated Creatinine Clearance 95.2 mL/min (>60); Glucose 137 mg/dL (74-106); Osmolality,Calculated 274 (275-295); Potassium 3.9 mMol/L (3.4-5.1); Sodium 137 mMol/L (136-145); eGFR > 60 See Note
[2024-12-04] MEDS: VANCOMYCIN/D5W 1500 MG IVPB 300 ML 120 MG IV ×2 (10:47→21:17)
[2024-12-04 12:00] VITALS: BP 120/70; PULSE 80; RESP 18; TEMP 36.7; O2SAT 97
--- NOTE | 2024-12-04 13:41 | ESPR_ITS ---
<Statement entered by Beckie Martínez MD - 12/04/24 15:06> Reason for Transfer: This patient requires urgent Neurosurgical evaluation due to the presence of a 1.5 cm soft tissue abscess anterior to the C7 vertebral body, as identified on MRI of the cervical spine. The abscess is thought to be the cause of the patient?s persistent spinal pain. Admission Diagnosis: * Chronic alcohol use disorder * Alcohol withdrawal syndrome, requiring ICU care * Cirrhosis * Esophageal varices * Positive blood cultures for Staphylococcus hominis * Persistent spinal pain with a soft tissue abscess at C7 Hospital Course: The patient was initially admitted for alc withdrawel and was subsequently transferred to the ICU for management of severe alcohol withdrawal. The patient's condition improved significantly with proper management, including the successful weaning of chlordiazepoxide. Blood cultures from 11/17 were positive for Staph hominis but subsequent cultures on 11/19 were negative, indicating that the initial Gram-positive cocci were likely a contamination. A transthoracic echocardiogram was done and did not show any vegetations, and cardiology concluded that a transesophageal echocardiogram was unnecessary. Throughout the hospitalization, the patient continued to experience persistent spinal pain. There were no signs of spinal cord compression; the patient denied saddle anesthesia, bilateral lower extremity numbness, or loss of bowel/bladder control. An MRI of the cervical and thoracic spine with contrast was performed to rule out an epidural abscess. The MRI of the cervical spine revealed a 1.5 cm soft tissue abscess anterior to the C7 vertebral body, which is likely contributing to the patient?s symptoms. Given the need for urgent surgical evaluation, the decision was made to transfer the patient for initally neurosurgical evaluation. Multiple institutions declined, and recommended OMFS or ENT. After multiple attempts yesterday, the transfer nurse facilitated contact with Dr. Jorge Phipps, an ENT specialist at [facility]. I personally spoke with him, and he requested that I send video and pictures to his personal cell phone, which was done. After reviewing the media and discussing the case over the phone, Dr. Phipps stated that, since the patient is stable and there are no signs or symptoms of respiratory compromise, we should proceed with the current management. No need for surgical intervention at this point. The patient has been afebrile since admission, and repeat blood cultures are negative. The patient is currently receiving broad-spectrum coverage with Vancomycin and Zosyn. Dr. Phipps recommended administering Decadron 10 mg every 8 hours for a total of 3 doses and closely monitoring for any signs or symptoms. If the patient improves, he can be safely discharged with a follow-up appointment with ENT. However, if the symptoms persist, we may need to repeat imaging and potentially transfer the patient to another facility or request an evaluation by another ENT. For now, the patient has received the first 3 doses of Decadron 10 mg. The plan is to continue monitoring for the next 24 hours, and based on the patient's response, we will discuss the next steps. Current Medications: Vancomycin (empirically started) Ceftriaxone (empirically started) Case was discussed with attending physician Dr. Stroud Documentation for date of: 12/04/24 Subjective Subjective Interval history: Patient was seen and examined at the bedside. No acute events reported overnight. The patient denies chest pain, shortness of breath, abdominal pain, nausea, vomiting, or dizziness. Vital signs and laboratory results were reviewed and are stable. The patient remains on intravenous vancomycin and ceftriaxone. As per Dr. Phipps (ENT), Decadron 10 mg every 8 hours for a total of three doses has been completed. MRI of the cervical spine is scheduled for today, with results to be reviewed and discussed with Dr. Phipps in the morning to determine a safe discharge and or transfer plan. Exam Vital Signs Temp Pulse Resp BP Pulse Ox O2 Del Method 98.1 F 80 18 120/70 97 Room Air 12/04/24 12:00 12/04/24 12:00 12/04/24 12:00 12/04/24 12:00 12/04/24 12:00 12/04/24 12:00 Narrative Exam General: No acute distress, well nourished, AAO x3, mild tremors hands Eye: PERRL, EOMI, normal conjunctiva, no scleral icterus HENT: Normocephalic, atraumatic, hearing intact to conversation at normal volume, moist oral mucosa Neck: Supple, non-tender, no JVD, no lymphadenopathy Lungs: Non-labored respirations, symmetric chest rise, Clear to auscultate bilaterally, No wheezing, rhonchi, crackles Heart: Peripheral pulses intact bilaterally, Regular Rate and Rhythm. Abdomen: Soft, non-distended, no palpable masses, nontender Musculoskeletal: Tenderness to palpation over the vertebral bodies from cervical to thoracic. Normal range of motion and strength, No cyanosis or edema, No visible joint swelling Skin: Skin is warm, dry. Psychiatric: Cooperative, appropriate mood and affect, Awake and alert, not agitated Neuro: Cranial nerves II-XII grossly intact. Strength 5/5 throughout. Sensations intact to light touch. Objective Labs 12/05/24 05:06 12/04/24 09:05 Labs: Laboratory Results - last 24 hr 12/03/24 12/04/24 12/04/24 21:05 04:30 09:05 WBC 6.3 D RBC 4.21 L Hgb 12.4 L Hct 37.7 L MCV 90 MCH 29.5 MCHC 32.9 RDW Std Deviation 57.1 H Plt Count 208 Neut % (Auto) 84 H Lymph % (Auto) 15 Evans % (Auto) 1 Eos % (Auto) 0 Baso % (Auto) 0 Neut # (Auto) 5.3 Lymph # (Auto) 0.9 L Evans # (Auto) 0.1 Eos # (Auto) 0.0 Baso # (Auto) 0.0 Immature Gran # (Auto) 0.01 H Absolute Nucleated RBC 0.00 Immature Gran % 0 Nucleated RBC % 0 Sodium 138 137 Potassium 4.5 3.9 D Chloride 101 101 Carbon Dioxide 24.8 24.8 Anion Gap 12 11 BUN 9 10 Creatinine 1.0 0.9 Estim Creat Clear Calc 85.7 95.2 eGFR > 60 > 60 BUN/Creatinine Ratio 9 L 11 L Glucose 157 H D 137 H Calculated Osmolality 277 274 L Calcium 10.0 10.2 Vancomycin Trough 9.5 Quality Measures Quality Measures VTE prophylaxis Assessment & Plan Assessment Current Active Medications: Generic Name Dose Route Start Last Admin Trade Name Freq PRN Reason Stop Dose Admin Acetaminophen 650 mg 11/22/24 08:49 12/03/24 08:50 Acetaminophen 325 Mg Tablet PO 12/17/24 13:42 650 mg Q6H PRN Administration PAIN 1-3 OR FEVER > 101 Protocol Bisacodyl 10 mg 11/17/24 13:37 Bisacodyl 5 Mg Tabec PO 12/17/24 13:36 QDAY PRN CONSTIPATION Protocol Dextrose 25 ml 11/17/24 16:01 Dextrose 50%-Water Inj 50 Ml Syringe IV 12/17/24 16:00 Q15MIN PRN BG 50-70 responsive npo pt Dextrose 50 ml 11/17/24 16:01 Dextrose 50%-Water Inj 50 Ml Syringe IV 12/17/24 16:00 Q15MIN PRN BG <50 OR BG <70 & pt unresponsive Folic Acid 1 mg 11/20/24 09:00 12/04/24 08:19 Folic Acid 1 Mg Tablet PO 12/20/24 08:59 1 mg QDAY APOORVA Administration Gabapentin 100 mg 11/20/24 14:00 12/04/24 13:17 Gabapentin 100 Mg Capsule PO 12/20/24 13:59 100 mg TID APOORVA Administration Glucagon 1 mg 11/17/24 16:01 Glucagon Inj 1 Mg Vial IM Q15MIN PRN BG <70, and no IV access Vancomycin HCl/Dextrose 300 mls @ 120 mls/hr 12/04/24 10:00 12/04/24 10:47 Vancomycin/D5w 1500 Mg Ivpb IV 12/11/24 09:59 120 mls/hr BID@1000,2200 APOORVA Administration Protocol Lidocaine 1 patch 11/24/24 11:16 11/26/24 21:30 Lidocaine 5% 1 Patch TOP 12/24/24 11:15 1 patch UD PRN Administration PAIN Protocol Pantoprazole Sodium 40 mg 11/18/24 09:00 12/04/24 08:19 Pantoprazole 40 Mg Tablet PO 12/18/24 08:59 40 mg BID APOORVA Administration Pharmacy Consult 1 each 11/27/24 09:00 Vancomycin Pharmacy To Dose 1 Each Each IV 12/27/24 08:59 QDAY PRN PROTOCOL Prochlorperazine Maleate 5 mg 11/19/24 10:00 11/25/24 19:53 Prochlorperazine Maleate 5 Mg Tablet PO 12/19/24 09:59 5 mg Q6HR PRN Administration NAUSEA OR VOMITING Sennosides 1 tab 11/18/24 09:00 12/04/24 08:19 Senna Tablet PO 12/18/24 08:59 1 tab QDAY APOORVA Administration Protocol Thiamine HCl 100 mg 11/20/24 09:00 12/04/24 08:19 Thiamine 100 Mg Tablet PO 12/20/24 08:59 100 mg QDAY APOORVA Administration Tramadol HCl 50 mg 12/03/24 08:58 12/04/24 08:28 Tramadol Hcl 50 Mg Tablet PO 12/08/24 08:57 50 mg Q6HR PRN Administration PAIN SCALE 4-10(Mod-Sev Zinc Acetate/Diphenhydramine 0 gm 11/17/24 18:27 12/02/24 14:21 Diphenhydramine/Zn Acet 2% Cr 30 Gm Tube TOP 12/17/24 18:26 1 applicatio Q6HR PRN Administration RASH Zolpidem Tartrate 5 mg 11/22/24 21:00 12/03/24 20:29 Zolpidem 5 Mg Tablet PO 12/22/24 20:59 5 mg HS APOORVA Administration Plan Patient still in hospital, pending transfer to OMFS/ENT 29-year-old male history of alcohol use and withdrawal, cirrhosis, and esophageal varices. Patient was admitted for alcohol withdrawal. ED course: Initial vitals include temperature 98.3, blood pressure 133/86, pulse 95, respirations 16, 95% on room air. Cervical spine showed no acute fracture, C5- C6 mild to moderate left neural foraminal stenosis. Head CT was negative. Chest x-ray was negative for aspiration pneumonia. CT abdomen showed gastritis pattern, cholelithiasis, negative for cholecystitis. Notable labs include hemoglobin 11.4, creatinine 0.9, magnesium 1.8, AST 57, ALT 49, alkaline phosphatase 168, total creatinine kinase 289, Pro-Thai 0.05, lipase 44. UA negative. Urine toxicology negative for drugs, positive for alcohol 394.4. Patient received diazepam 10 mg x 1, ibuprofen 800 mg x 1. Patient was transferred to ICU due to high CIWA score of 26. Hospital course: Patient required ICU admission for severe alcohol withdrawal (CIWA 26) and was managed with precedex drip. The patient's clinical status improved significantly following transfer to the floor, having been successfully weaned off chlordiazepoxide. Blood culture from 11/17 was positive for Staph hominis from aerobic bottles, however repeat blood cultures were 11/19 were negative. Transthoracic echo was done and did not show any vegetations. Cardiology determined a Tranesophageal echo was unnecessary. Throughout admission, persistent, scattered spinal pain remained a concern, localized with point tenderness at C7 and T7, despite negative CT imaging of the cervical and thoracic spine for fracture or disc narrowing. There were no signs of spinal cord compression, as the patient denied saddle anesthesia, bilateral lower extremity numbness, or loss of bowel/bladder control. An MRI with contrast of cervical and thoracic spine was done to rule out a potential epidural abscess as the cause of the pain. MRI of cervical spine showed 1.5 cm soft tissue abscess anterior to the C7 vertebral body. Patient requires transfer for urgernt OMFS/ENT evaluation. Patient emperically started on Vancomycin and Ceftriaxone. Patient remained afebrile and no leukocytosis throughout hospital admission. Discharge instructions: Continue to take buspirone 7.5 mg tablet by mouth twice a day Take folic acid 1 mg tablet and vitamin B1 100 mg tablet once a day each for nutritional support Take naltrexone 50 mg tablet by mouth once a day for alcohol use disorder Continue taking Protonix 40 mg tablet daily Please follow-up with gastroenterology as you have history of esophageal varices Please follow-up with your PCP within 1 week of discharge and ask your PCP to refer you to an alcohol use disorder program, if you do not have a PCP please follow-up at the [facility] [address] [place] [address] If your symptoms worsen or if you develop new chest pain, shortness of breath, withdrawal symptoms or bleeding from mouth or anus - please come back to the ED immediately Admission diagnoses: #MSSA bacteremia #Soft tissue abscess anterior to the C7 vertebral body #History of cirrhosis #History of esophageal varices (Grade I) #Alcohol withdrawal, resolved #Alcohol use disorder Case discussed with my attending Dr. Dasilva, and senior resident, Dr. Tanya Purdy MD PGY-1 Attending Provider Attestation/Addendum I have examined the patient, reviewed labs and imaging findings, discussed the case with the resident(s), and reviewed entered orders. I agree with the plan of care as outlined in this note, with these additional summaries/recommendations: Patient seen at bedside. No acute overnight events. Patient has no acute complaints today. Patient was counseled extensively on the importance of alcohol cessation. He showed understanding and expressed desire to quit alcohol. protective services social worker referral for resources. Alcohol withdrawal has resolved. Patient encouraged to attend alcohol Anonymous. Hospital course complicated by MSSA bacteremia. Patient was complaining of neck pain and underwent MRI of cervical spine which revealed abnormal soft tissue enhancement centered anterior to the C7 vertebral body measuring up to 15 mm in thickness. Multiple attempts were made to transfer the patient for neurosurgery and OMFS which were unsuccessful. Specialist recommended transfer for ENT given the location anterior to C7. Case was discussed with ENT and given that patient is clinically doing well and tolerating diet that they recommend conservative management with close outpatient follow-up. Continue IV antibiotics. Outpatient follow-up for cirrhosis. Gastroenterology following. Patient updated on the plan and agreement. All questions answered to satisfaction. Please see residents note for additional details and management. Dr. Brown MD
--- NOTE | 2024-12-04 14:46 | PC.SS ---
Rounding Note: Patient to complete IV steroid regimen. Upon completion patient will be medically cleared for mental health evaluation.
[2024-12-04 16:00] VITALS: BP 126/69; PULSE 80; RESP 18; TEMP 36.9; O2SAT 96
[2024-12-04 20:00] VITALS: BP 128/79; PULSE 84; RESP 18; TEMP 36.2; O2SAT 95
--- NOTE | 2024-12-04 20:24 | PD.IMPROG ---
Documentation for date of: 12/04/24 Subjective Subjective Interval history: Hemoglobin hematocrit 12.4 and 37.7 Exam Vital Signs Temp Pulse Resp BP Pulse Ox O2 Del Method 98.5 F 80 18 126/69 96 Room Air 12/04/24 16:00 12/04/24 16:00 12/04/24 16:00 12/04/24 16:00 12/04/24 16:00 12/04/24 16:00 Objective Labs 12/04/24 04:30 12/04/24 09:05 Labs: Laboratory Results - last 24 hr 12/03/24 12/04/24 12/04/24 21:05 04:30 09:05 WBC 6.3 D RBC 4.21 L Hgb 12.4 L Hct 37.7 L MCV 90 MCH 29.5 MCHC 32.9 RDW Std Deviation 57.1 H Plt Count 208 Neut % (Auto) 84 H Lymph % (Auto) 15 Wayne % (Auto) 1 Eos % (Auto) 0 Baso % (Auto) 0 Neut # (Auto) 5.3 Lymph # (Auto) 0.9 L Wayne # (Auto) 0.1 Eos # (Auto) 0.0 Baso # (Auto) 0.0 Immature Gran # (Auto) 0.01 H Absolute Nucleated RBC 0.00 Immature Gran % 0 Nucleated RBC % 0 Sodium 138 137 Potassium 4.5 3.9 D Chloride 101 101 Carbon Dioxide 24.8 24.8 Anion Gap 12 11 BUN 9 10 Creatinine 1.0 0.9 Estim Creat Clear Calc 85.7 95.2 eGFR > 60 > 60 BUN/Creatinine Ratio 9 L 11 L Glucose 157 H D 137 H Calculated Osmolality 277 274 L Calcium 10.0 10.2 Vancomycin Trough 9.5 Impressions Impression: Upper GI bleed secondary esophageal varices and hypertensive portal gastropathy Continue to monitor CBC Assessment & Plan A&P Narrative coag neg staph in in ED c/o fever cirrhosis with normal inr and plts but low counts. hx of heavy etoh use noted role of abx unclear to me. ok to get a trans thoracic echo and if neg then stop and re evaluate rx we will see briefly tuesday am he wants something for anxiety. but may have been the reason he was drinking etoh will see again prn Time Spent With Patient Time: Total time spent is greater than 50% in coordination of care (as documented) at patient's floor/unit and/or counseling patient:
[2024-12-04] MEDS: ACETAMINOPHEN 325 MG TABLET 650 MG PO (21:17)
[2024-12-04] MEDS: ZOLPIDEM 5 MG TABLET PO (23:46)
[2024-12-05] VITALS: BP 92/60; PULSE 62; RESP 18; TEMP 36.7; O2SAT 96
[2024-12-05 04:00] VITALS: BP 100/58; PULSE 59; RESP 18; TEMP 36.3; O2SAT 95
[2024-12-05 05:26] LABS: Basophils # (Auto) 0.0 Thou/mm3 (0.0-0.2); Basophils % (Auto) 0 % (0-2.5); Eosinophils # (Auto) 0.0 Thou/mm3 (0.0-0.5); Eosinophils % (Auto) 0 % (0-10); Hematocrit 34.0 % (41.0-53.0); Hemoglobin 11.2 g/dL (13.5-16.0); Immature Granulocytes Auto 0.03 Thou/mm3 (0.00-0.00); Lymphocytes # (Auto) 1.5 Thou/mm3 (1.0-4.8); Lymphocytes % (Auto) 14 % (10-50); Mean Corpuscular HGB Conc 32.9 g/dl (31.0-37.0); Mean Corpuscular Hemoglobin 29.4 pg (25.0-35.0); Mean Corpuscular Volume 89 fL (80-100); Monocytes # (Auto) 1.7 Thou/mm3 (0.0-0.8); Monocytes % (Auto) 15 % (0-12); Neutrophils # (Auto) 7.9 Thou/mm3 (1.8-7.7); Neutrophils % (Auto) 71 % (37-80); Nucleated Red Blood Cell # 0.00 Thou/mm3 (0.00-0.00); Nucleated Red Blood Cell % 0 /100 WBC (0); Platelet Count 324 Thou/mm3 (140-440); RDW Standard Deviation 58.4 fL (35.1-43.9); Red Blood Count 3.81 Miln/mm3 (4.50-5.90); White Blood Count 11.2 Thou/mm3 (3.8-10.6)
[2024-12-05] MEDS: GABAPENTIN 100 MG CAPSULE PO ×2 (05:36→15:03)
[2024-12-05 07:45] VITALS: BP 117/75; PULSE 66; RESP 20; TEMP 36.6; O2SAT 97
[2024-12-05] MEDS: FOLIC ACID 1 MG TABLET PO (08:42)
[2024-12-05] MEDS: PANTOPRAZOLE 40 MG TABLET PO (08:42)
[2024-12-05] MEDS: THIAMINE 100 MG TABLET PO (08:42)
[2024-12-05] MEDS: cefTRIAXone 2 GM in SODIUM CHLORIDE 0.9% (Popper) 50 ML IV (08:42)
[2024-12-05 10:11] LABS: Anion Gap 12 (7-16); BUN/Creatinine Ratio 13 Ratio (12-20); Blood Urea Nitrogen 12 mg/dL (9-23); Calcium 9.6 mg/dL (8.3-10.6); Carbon Dioxide 26.3 mMol/L (20.0-31.0); Chloride 103 mMol/L (98-107); Creatinine (Component) 0.9 mg/dL (0.6-1.3); Estimated Creatinine Clearance 95.2 mL/min (>60); Glucose 99 mg/dL (74-106); Osmolality,Calculated 280 (275-295); Potassium 5.0 mMol/L (3.4-5.1); Sodium 141 mMol/L (136-145); Vancomycin,Trough 19.2 mcg/mL (5.0-10.0); eGFR > 60 See Note
--- NOTE | 2024-12-05 11:29 | ESDS_ITS ---
<Statement entered by Beckie Martínez MD - 12/05/24 19:00> Patient is a 29-year-old male with past medical history of alcohol use disorder was initially admitted for alcohol withdrawal and was subsequently transferred to ICU for management of severe alcohol withdrawal requiring Precedex drip. The patient condition significantly improved during ICU stay and patient suc cessfully downgraded to floor. Blood culture from 11/17 were positive for Staph hominis, subsequent cultures on 11/19 were negative. Indicating that the initial GPC were likely contamination. Transthoracic echo was done and did not show any vegetations, cardiology concluded that DANO echo was unnecessary. Throughout the hospitalization the patient continued to experience persistent spinal/neck pain they were no signs of spinal cord compression, patient denied any saddle anesthesia, bilateral lower extremity numbness, loss of bowel or bladder control. MRI of the cervical and thoracic spine with contrast was performed to rule out any epidural abscess. MRI of the cervical spine revealed 1.5 cm soft tissue abscess anterior to the C7 vertebral body which is likely contributing to the patient's symptoms.Given the need for urgent surgical evaluation, the decision was made to transfer the patient for initally neurosurgical evaluation. Multiple institutions declined, and recommended OMFS o r ENT. After multiple attempts , the transfer nurse facilitated contact with Dr. Jorge Phipps, an ENT specialist at [facility]. He requested that we send video and pictures to his cell phone, which was done. After reviewing the media and discussing the case over the phone, Dr. Phipps stated that, since the patient is stable and there are no signs or symptoms of respiratory compromise, we should proceed with the current management. No need for surgical intervention at this point. The patient has been afebrile since admission, and repeat blood cultures are negative. The patient received broad-spectrum coverage with Vancomycin and Zosyn. Dr. Phipps recommended administering Decadron 10 mg every 8 hours for a total of 3 doses and closely monitoring for any signs or symptoms. If the patient improves, he can be safely discharged with a follow-up appointment with ENT. During Hospital stay patient received Decadron 10 mg every 8 hours for total of 3 doses. Closely monitor for any signs or symptoms. The patient condition continue to be stable, MRI imaging was repeated, which revealed stable 1.5 centimeter abscess, no fever, no sign or symptoms of respiratory compromise. Decision was made to discharge patient with p.o. antibiotics, with instruction to close follow-up outpatient with ENT. It is critical to follow-up with ENT as soon as possible. Patient was extensively counseled, ENT will need to assess the abscess and determine if any further treatment such as drainage or additional surgical intervention is needed which could be done outpatient as many institutions refused transfer. However patient was advised to follow-up outpatient as soon as possible and seek immediate medical attention if there is increased pain or swelling in the neck area, fever or chills, redness, difficulty swallowing or breathing, nausea and vomiting. All questions and concerns were addressed. Patient gave verbalized understanding. Patient care was discussed with attending physician Dr. Brown Martínez MD PGY-3 I have carefully reviewed this document. Due to imperfections in the voice software, there could be grammatical errors including phonetic/typographic errors. This in no way compromises the medical care the patient is receiving I discussed with and supervised the internal controls consultant physician who took care of this patient. I personally saw and examined the patient and discussed the assessment and plan with the entire medicine team, including my attending , I agree with the assessment and plan as documented below Beckie Martínez M.D. PGY-3 Disclaimer: Despite multiple revisions, due to the dictation software being used, the document bellow may not be free of grammatical errors including phonetic/typographic errors. However, this does not deter from our commitment to providing health care in the patient's best interest in mind. Planned Discharge Date 12/05/24 DS: Providers Provider Date of admission: 11/17/24 13:53 Primary care physician: Balwinder Humphrey MD Admitting Provider: Dieudonne Purdy MD Attending Provider on Admission: Delfino Dasilva MD Consults: 11/17/24 20:20 Consult to Gastroenterology Routine Comment: One episode of bloody vomit Consulting Provider: Virgilio Tello 11/20/24 08:29 Consult to Infectious Diseases Routine Comment: ?GPC bacterimia Consulting Provider: Vladimir Gates 11/20/24 13:48 Referral Physical Therapy Routine Comment: Physician Instructions: 11/24/24 15:15 Consult to Cardiology Routine Comment: Had GPC in blood Consulting Provider: Carter Fabian Instructions: request for DANO 11/27/24 08:04 Consult to Otolaryngology(Head and Neck) Stat Comment: Consulting Provider: Darrell Walton 11/27/24 10:23 Referral - Manager Of It Routine Service Needed for Transfer: oral maxillofacial surgery Addl Comments:: C7 anterior soft tissue abscess Attending Provider on DC: Delfino Dasilva MD Discharging Provider: Delfino Dasilva MD DS: Diagnosis Problem List Completed Was Problem List Reviewed/Reconciled?: Yes Hospital Course Hospital Course Hospital course: 29-year-old male history of alcohol use and withdrawal, cirrhosis, and esophageal varices. Patient was admitted for alcohol withdrawal. ED course: Initial vitals include temperature 98.3, blood pressure 133/86, pulse 95, respirations 16, 95% on room air. Cervical spine showed no acute fracture, C5- C6 mild to moderate left neural foraminal stenosis. Head CT was negative. Chest x-ray was negative for aspiration pneumonia. CT abdomen showed gastritis pattern, cholelithiasis, negative for cholecystitis. Notable labs include hemoglobin 11.4, creatinine 0.9, magnesium 1.8, AST 57, ALT 49, alkaline phosphatase 168, total creatinine kinase 289, Pro-Thai 0.05, lipase 44. UA negative. Urine toxicology negative for drugs, positive for alcohol 394.4. Patient received diazepam 10 mg x 1, ibuprofen 800 mg x 1. Patient was trans ferred to ICU due to high CIWA score of 26. Hospital course: Patient required ICU admission for severe alcohol withdrawal (CIWA 26) and was managed with precedex drip. The patient's clinical status improved significantly following transfer to the floor, having been successfully weaned off chlordiazepoxide. Blood culture from 11/17 was positive for Staph hominis from aerobic bottles, however repeat blood cultures were 11/19 were negative. Transthoracic echo was done and did not show any vegetations. Cardiology determined a Tranesophageal echo was unnecessary. Throughout admission, persistent, scattered spinal pain remained a concern, localized with point tenderness at C7 and T7, despite negative CT imaging of the cervical and thoracic spine for fracture or disc narrowing. There were no signs of spinal cord compression, as the patient denied saddle anesthesia, bilateral lower extremity numbness, or loss of bowel/bladder control. An MRI with contrast of cervical and thoracic spine was done to rule out a potential epidural abscess as the cause of the pain. MRI of cervical spine showed 1.5 cm soft tissue abscess anterior to the C7 vertebral body. Patient requires transfer for urgernt OMFS/ENT evaluation. Patient emperically started on Vancomycin and Ceftriaxone. Patient remained afebrile and no leukocytosis throughout hospital admission. Multiple institutions declined, and recommended OMFS or ENT. After several attempts, the transfer nurse facilitated contact with Dr. Jorge Phipps, an ENT specialist at [facility]. Dr. Phipps reviewed video and images sent to his phone and, after discussing the case, concluded that the patient?s stable condition and absence of respiratory compromise negated the need for surgical intervention. The patient has remained afebrile, and repeat blood cultures were negative. Broad-spectrum antibiotics (Vancomycin and Cextriaxone) were administered. Dr. Phipps recommended a course of Decadron 10 mg every 8 hours for 3 doses, with careful monitoring for any changes. If the patient improves, they may be safely discharged with follow-up care through ENT. During hospitalization, the patient received the recommended Decadron regimen, and their condition remained stable. Repeat MRI showed a stable 1.5 cm abscess with no fever or signs of respiratory distress. Given the stable course, the decision was made to discharge the patient on oral antibiotics with instructions for close follow-up with ENT. It is critical that the patient follow up promptly with ENT, as they will assess the abscess and determine if further intervention (such as drainage or surgery) is necessary. Although multiple institutions declined transfer, outpatient management is the plan. The patient was thoroughly counseled on the need for urgent follow-up with ENT and instructed to seek immediate medical attention if any of the following symptoms develop: increased pain or swelling in the neck, fever, difficulty swallowing or breathing, redness, or nausea/vomiting. All questions were addressed, and the patient verbalized understanding. Discharge instructions: Continue to take buspirone 7.5 mg tablet by mouth twice a day Take folic acid 1 mg tablet and vitamin B1 100 mg tablet once a day each for nutritional support Take naltrexone 50 mg tablet by mouth once a day for alcohol use disorder Continue taking Protonix 40 mg tablet daily Please follow-up with gastroenterology as you have history of esophageal varices Please follow-up with your PCP within 1 week of discharge and ask your PCP to refer you to an alcohol use disorder program, if you do not have a PCP please follow-up at the [facility] [address] [place] [address] If your symptoms worsen or if you develop new chest pain, shortness of breath, withdrawal symptoms or bleeding from mouth or anus - please come back to the ED immediately Admission diagnoses: #MSSA bacteremia #Soft tissue abscess anterior to the C7 vertebral body #History of cirrhosis #History of esophageal varices (Grade I) #Alcohol withdrawal, resolved #Alcohol use disorder Case discussed with my attending Dr. Dasilva, and senior resident, Dr. Tanya Purdy MD PGY-1 Status at Discharge Overall status at discharge: patient is progressing back to baseline Time Spent with Patient Time attestation: Total time spent providing and/or coordinating discharge services: Time spent: Greater than 30 minutes Exam Vital Signs Temp Pulse Resp BP Pulse Ox O2 Del Method 97.8 F 66 20 117/75 97 Room Air 12/05/24 07:45 12/05/24 07:45 12/05/24 07:45 12/05/24 07:45 12/05/24 07:45 12/05/24 07:45 Narrative Exam General: No acute distress, well nourished, AAO x3 Eye: PERRL, EOMI, normal conjunctiva, no scleral icterus HENT: Normocephalic, atraumatic, hearing intact to conversation at normal volume, moist oral mucosa Neck: Supple, non-tender, no JVD, no lymphadenopathy Lungs: Non-labored respirations, symmetric chest rise, Clear to auscultate bilaterally, No wheezing, rhonchi, crackles Heart: Peripheral pulses intact bilaterally, Regular Rate and Rhythm. Abdomen: Soft, non-distended, no palpable masses, nontender Musculoskeletal: Tenderness to palpation over the vertebral bodies from cervical to thoracic. Normal range of motion and strength, No cyanosis or edema, No visible joint swelling Skin: Skin is warm, dry. Psychiatric: Cooperative, appropriate mood and affect, Awake and alert, not agitated Neuro: Cranial nerves II-XII grossly intact. Strength 5/5 throughout. Sensations intact to light touch. Discharge Plan Plan Patient Disposition: HOME (Self Care) Patient condition on transfer: Stable Care Plan Goals: Continue to take buspirone 7.5 mg tablet by mouth twice a day Take folic acid 1 mg tablet and vitamin B1 100 mg tablet once a day each for nutritional support Take naltrexone 50 mg tablet by mouth once a day for alcohol use disorder Continue taking Protonix 40 mg tablet daily Please follow-up with gastroenterology as you have history of esophageal varices Please follow-up with your PCP within 1 week of discharge and ask your PCP to refer you to an alcohol use disorder program, if you do not have a PCP please follow-up at the [facility] [address] [place] [address] If your symptoms worsen or if you develop new chest pain, shortness of breath, withdrawal symptoms or bleeding from mouth or anus - please come back to the ED immediately * Oral Antibiotics: Continue taking as directed. Complete the full course of antibiotics, even if you start feeling better before finishing. * Dosage: Augmentin 1 tab every 12 hours for 14 days Follow-Up Care: * ENT Follow-up: It is critical to follow up with your ENT (Ear, Nose, and Throat) specialist as soon as possible. Contact their office to schedule an appointment within 1?2 days.Or you can request referral from your PCP. ENT will assess the abscess and determine if any further treatment, such as drainage or additional surgical intervention, is needed. Signs of Infection or Complications (Seek immediate medical attention if you experience any of the following): * Increased pain or swelling in the neck * Fever or chills * Redness in that site * Difficulty swallowing or breathing * Nausea or vomiting * If you experience any of the above complications or any new, concerning symptoms, please seek immediate medical attention or go to the nearest emergency department. Prescriptions/Referrals Prescriptions/Med Rec: New buspirone 7.5 mg tablet 7.5 mg PO BID Qty: 20 0RF naltrexone 50 mg tablet 50 mg PO QDAY 30 Days Qty: 30 0RF thiamine mononitrate (vit B1) 100 mg Tablet 100 mg PO QDAY 30 Days Qty: 30 0RF folic acid 1 mg Tablet 1 mg PO QDAY 30 Days Qty: 30 0RF amoxicillin-pot clavulanate [Augmentin XR] 1,000-62.5 mg tablet extended release 12 hr 1 tab PO Q12H 14 Days Qty: 28 0RF Continued pantoprazole [Protonix] 40 mg tablet,delayed release (DR/EC) 40 mg PO DAILY 30 Days Qty: 30 3RF Rx Instructions: Take one tablet by mouth twice a day Referrals: Balwinder Humphrey MD [Primary Care Provider, Family Practice] Patient/Caregiver Discharge Instructions Discharge Activity: activity as tolerated Education Materials: Alcohol Withdrawal: What to Expect, Addiction Ask These Questions, Addiction: Getting Help Print Language: Hebrew Stand Alone Forms: Claire Award Info., Patient Portal Info Letter Discharge Order Discharge Orders: Discharge (Routine); Ordered 12/05/24 Ordered By: Opal Schultz Quality Discharge Quality Measures VTE prophylaxis MD Attestestation MD Attestation I have examined the patient, reviewed labs and imaging findings, discussed the case with the resident(s), and reviewed entered orders. I agree with the plan of care as outlined in this note. Time Spent: 33 minutes Patient was counseled extensively on the importance of following up with ear nose and throat physician for 1.5 cm soft tissue abscess anterior to the C7 vertebral body. Patient was able to repeat back that he needs to follow-up with an ENT specialist. Patient was counseled extensively on taking antibiotic as prescribed and strict return precautions including any respiratory distress, dysphagia, drooling, or fevers. Counseled extensively to avoid alcohol. Dr. Brown MD
[2024-12-05] MEDS: VANCOMYCIN/D5W 1,250 MG IVPB 250 ML 120 MG IV (11:34)
--- NOTE | 2024-12-05 11:59 | PC.SS ---
DOUBLE ENDING MACHINE OPERATOR informed by bedside nurse that patient is medically cleared for a mental health evaluation. DOUBLE ENDING MACHINE OPERATOR notified ED coordinator of patient's medical clearance. Mental health evaluation is pending.
[2024-12-05 12:00] VITALS: BP 122/74; PULSE 71; RESP 20; TEMP 36.2; O2SAT 97
--- NOTE | 2024-12-05 12:35 | PC.CC ---
Addendum entered by Soumya Massey 12/05/24 12:39: 1238-ASW contacted Dr. Martínez and asked if pt is medically cleared for a MH evaluation and she confirmed pt is ready. Original Note: 1215-ASW received a call from SAMRA Quijano stating pt was medically cleared for a MH evaluation. ASW attempted to contact Dr. Dasilva, but he stated he could not speak as he was in a room with a family. ASW attempted to contact Dr. Dasilva to confirm pt is medically cleared. Discharge packet is in the chart for pt. ASW will conduct a MH eval at bedside with pt.
--- NOTE | 2024-12-05 14:00 | PC.SS ---
WIND FARM ELECTRICAL SYSTEMS DESIGNER informed by ED coordinator that patient has been cleared to d/c home with safety plan. WIND FARM ELECTRICAL SYSTEMS DESIGNER updated Med/Surg charge nurse.
--- NOTE | 2024-12-05 14:41 | PC.SS ---
SS met with bedside nurseGermán who explained pt is requiring transportation. SS offered to setup UBER but nurse requested later time. SS setup taxi transportation with [employer] for 5pm. SS met with pt to confirm his home address and is aware taxi transportation is at 5pm. Jacey ARRIAZA is aware. Bedside nurseGermán is aware. Charge NurseMuriel is aware.
--- NOTE | 2024-12-05 15:04 | PC.CC ---
1415-Pt is a 29 yo male who entered the ED on 11/17/24 due to suspected SI and Alcohol intoxication. ASW-Soumya Massey met with patient [id number] to complete assessment. ASW introduced self, role, and reason for assessment. ASW disclosed limits of confidentiality as well. Patient appeared alert and oriented to self, place, and situation. Patient was pleasant; his mood appeared sad and concerned; his behavior appeared calm. Patient?s thought process was linear and organized. No signs of delusions, paranoid or V/h. Pt denies SI w/plan and denies HI. Pt stated he was walking to [facility] to see the doctor, but was walking through the field and back lots from the [facility]. Pt stated when he arrived to the [place] area, he fell down and when he got back up, he fell again. Pt stated by that time, someone had called [employer] and a fire truck arrived, along with EMS. Pt strongly denies SI. Pt stated he does not have history of SI/HI. Pt admitted that he had been drinking and was intoxicated at the time. Pt stated he is an alcoholic and stated he and his have been for about 1 year now due to his alcoholism. Pt reported that now he has medical issues due to his alcoholism and is ready to stop drinking now. Pt denies having firearms in his home and states he resides with his parents and brother. Pt stated his parents are aware he is in the hosptial and they are aware of the reasons. Pt called his father in the presence of ASW and pts father agreed to remove all sharps and medications. Pt stated his is also willing to schedule an AOD and MH appointment. ASW and pt called [facility] AOD and an appointment was scheduled for 12/17/24 at3:15pm and on 12/06/24 at 1pm with [facility]. ASW staffed this case with PRINTING AND STAMPING SUPERVISOR, Director Anoop Rhoades and she agreed to the safety plan. Assigned RN is aware and she also reported that since the pt has been under medical care, he has not endorsed SI/HI at all. She confirmed pt has been a good patient, and cooperative. Dr. Martínez is also aware and agrees with plan. Community resources were also provided such as the [facility] [place] guide. Pt stated he will be attending his appointments.
--- NOTE | 2024-12-05 15:20 | PC.CC ---
1415-Pt is a 29 yo male who entered the ED on 11/17/24 due to suspected SI and Alcohol intoxication. ASW-Soumya Massey met with patient [id number] to complete assessment. ASW introduced self, role, and reason for assessment. ASW disclosed limits of confidentiality as well. Patient appeared alert and oriented to self, place, and situation. Patient was pleasant; his mood appeared sad and concerned; his behavior appeared calm. Patient?s thought process was linear and organized. No signs of delusions, paranoid or V/h. Pt denies SI w/plan and denies HI. Pt stated he was walking to [facility] to see the doctor, but was walking through the field and back lots from the [facility]. Pt stated when he arrived to the [place] area, he fell down and when he got back up, he fell again. Pt stated by that time, someone had called [employer] and a fire truck arrived, along with EMS. Pt strongly denies SI. Pt stated he does not have history of SI/HI. Pt admitted that he had been drinking and was intoxicated at the time. Pt stated he is an alcoholic and stated he and his have been for about 1 year now due to his alcoholism. Pt reported that now he has medical issues due to his alcoholism and is ready to stop drinking now. Pt denies having firearms in his home and states he resides with his parents and brother. Pt stated his parents are aware he is in the hosptial and they are aware of the reasons. Pt called his father in the presence of ASW and pts father agreed to remove all sharps and medications. Pt stated his is also willing to schedule an AOD and MH appointment. ASW and pt called [facility] AOD and an appointment was scheduled for 12/17/24 at3:15pm and on 12/06/24 at 1pm with [facility]. ASW staffed this case with SYSTEM CONSULTANT, Director Anoop Rhoades and she agreed to the safety plan. Assigned RN is aware and she also reported that since the pt has been under medical care, he has not endorsed SI/HI at all. She confirmed pt has been a good patient, and cooperative. Dr. Martínez is also aware and agrees with plan. Community resources were also provided such as the [facility] resource guide. Pt stated he will be attending his appointments.
== END 2024-12-05 15:39 | disposition home or self-care (01) | DRG 775 ==
LOC: SERX 11-17 10:06 → SERHOLD 11-17 14:22 → S2SX 11-18 08:02 → SERHOLD 11-19 06:13 → S2SX 11-19 06:14 → S3SX 11-20 11:18 → S2NX 11-21 13:13 → S3NX 11-26 20:43
PROVIDERS: Emergency Medicine; Nurse Practitioner Family; Student in an Organized Health Care Education/Training Program; Emergency Provider Family Medicine; PCP Family Medicine; Visit Provider Student in an Organized Health Care Education/Training Program
DX: F10.239 Alcohol dependence with withdrawal, unspecified (principal); K80.20 Calculus of gallbladder without cholecystitis without obstruction; L30.9 Dermatitis, unspecified; Y90.8 Blood alcohol level of 240 mg/100 ml or more; B95.61 Methicillin susceptible Staphylococcus aureus infection as the cause of diseases classified elsewhere; D70.9 Neutropenia, unspecified; F41.9 Anxiety disorder, unspecified; G47.00 Insomnia, unspecified; G93.41 Metabolic encephalopathy; I85.11 Secondary esophageal varices with bleeding; K31.89 Other diseases of stomach and duodenum; K59.00 Constipation, unspecified; K70.30 Alcoholic cirrhosis of liver without ascites; K72.10 Chronic hepatic failure without coma; K75.81 Nonalcoholic steatohepatitis (NASH); K76.82 Hepatic encephalopathy; K76.6 Portal hypertension; R45.851 Suicidal ideations; W01.0XXA Fall on same level from slipping, tripping and stumbling without subsequent striking against object, initial encounter; Z63.9 Problem related to primary support group, unspecified; Z79.899 Other long term (current) drug therapy; R78.81 Bacteremia; B96.89 Other specified bacterial agents as the cause of diseases classified elsewhere
CPT/HCPCS: 36415; 36600; 70450; 71045; 72125; 72126; 72129; 72142; 72147; 72156; 73562; 74177; 80048; 80053; 80202; 80307; 80320; 80329; 81001; 82550; 82607; 82803; 83605; 83690; 83735; 84100; 84145; 84484; 85025; 85610; 85730; 87040; 87077; 87081; 87186; 93005; 93306; 96127; 97162; 99285; A4216; A4649; A9577; J0696; J1100; J1650; J1885; J2060; J2270; J2405; J2470; J2543; J2560; J3360; J3370; J3373; J3411; J3475; J3490; J7050; J7120; Q0164; Q9967; A9270; G0480

== ENCOUNTER 2024-12-12 13:04 | Outpatient (AMB) | payer MEDICAID, SELFPAY ==
--- NOTE | 2024-12-12 13:16 | ACNOTE_ITS ---
Vital Signs 12/12/24 13:17 Weight 64.92 kg Weight Measurement Method Standing Scale BP 141/93 H Blood Pressure Source Automatic Cuff Blood Pressure Location Right Upper Arm Position Sitting Respiration 20 Pulse 90 Pulse Source Monitor Temp 97.5 F Temp Source Temporal Artery Scan Pulse Oximetry (%) 96 Oxygen Delivery Method Room Air Allergies/Meds Allergies & Medications Allergies No Known Allergies Allergy (Verified 12/12/24 13:18) Medication Reconciliation pantoprazole 40 mg tablet,delayed release (Protonix) 40 mg PO DAILY 1 month #30 tabs 11/06/24 [Rx Confirmed 12/12/24] buspirone 7.5 mg tablet 7.5 mg PO BID #20 tabs 11/17/24 [Rx Confirmed 12/12/24] folic acid 1 mg tablet 1 mg PO QDAY 1 month #30 tabs 11/19/24 [Rx Confirmed 12/12/24] naltrexone 50 mg tablet 50 mg PO QDAY 1 month #30 tabs 11/19/24 [Rx Confirmed 12/12/24] thiamine mononitrate (vit B1) 100 mg tablet 100 mg PO QDAY 1 month #30 tabs 11/19/24 [Rx Confirmed 12/12/24] amoxicillin-potassium clavulanate 1,000 mg-62.5 mg tablet,ext.rel 12hr (Augmentin XR) 1 tab PO Q12H 14 days #28 tabs 12/05/24 [Rx Confirmed 12/12/24] cyclobenzaprine 5 mg tablet 5 mg PO QHS 1 month #30 tabs 12/12/24 [Rx] lidocaine 5 % topical patch 1 patch topical QDAY 1 month #30 ea 12/12/24 [Rx] naltrexone 50 mg tablet 50 mg PO QDAY 1 month #30 tabs 12/12/24 [Rx] naltrexone microspheres 380 mg intramuscular suspension,extended release 380 mg IM QMONTH 1 month #1 ea 12/12/24 [Rx] syringe with needle, safety 3 mL 25 gauge x 1 (Aqinject Safety Syringe) #100 ea 12/12/24 [Rx] MA Intake Visit Data Collection New Patient or Established: Established Patient (seen at [facility] within 3 years) Seen by Clinical Staff ONLY (RN/MA): No Pain Present Currently: No Pain scale:: 0 Pain Scale Used: [place]/Numerical PCP or OBGYN visit in last 3 months: Yes Do You Feel Safe at Home: Yes Authorities Contacted: N/A Smoking Status Smoking Status: Current some day smoker Cessation Counseling Provided: GARCIA was advised that quitting smoking is the single most important factor to protect the health of themselves and their family. Discussed the benefits of quitting smoking with patient. Encouraged patient to quit smoking and provided Cessation assistance materials and resources. Tobacco Use: Nicotine Years smoked: 0 Are you interested in quitting?: No Immunization / Flu Flu Vaccine in the Last 12 Months: No Flu Vaccine Exclusion Criteria: No Exclusion Criteria Past Medical History Past Medical History NEUROLOGIC: Positive Neurological Disorders; Negative Seizures CARDIAC: Negative Cardiac Disorders or Congestive Heart Failure RESPIRATORY: Positive Asthma (breathing difficulties); Negative Chronic Obstructive Pulmonary Disease (COPD) GASTROINTESTINAL: Positive Gastrointestinal Disorders and Cirrhosis GENITOURINARY: Negative Genitourinary Disorders or Renal Disease ENDOCRINE: Negative Diabetes Mellitus Type 1 or Diabetes Mellitus Type 2 HEMATOLOGIC: Negative Sickle Cell Disease PSYCHO/SOCIAL: Positive Depression and Anxiety OTHER HISTORY: Negative Autoimmune Disease, Blood Transfusions, Anesthesia Reactions, MRSA or Cancer Family History FAMILY HISTORY: Positive Family Psychiatric Problems; Negative Family Respiratory Disorders, Family Cardiac Disorders, Family Gastrointestinal Problems, Family Cancer, Family Surgery or Family Anesthesia Reaction Surgical History SURGICAL: Negative Abdominal Surgery Social History SMOKING STATUS: Smoking status: Current some day smoker SECOND HAND EXPOSURE: second hand exposure: No ALCOHOL: Alcohol Intake: Current ALCOHOL FREQUENCY: Alcohol Intake Frequency: 3 or More Drinks per Day HOUSING: Housing: House LIVES WITH: Lives With: Family Patient Portal Questionaires PHQ-9 PHQ-2 Over the last 2 weeks, how often have you been bothered by any of the following problems? 1. Little interest or pleasure in doing things: not at all 2. Feeling down, depressed, or hopeless: not at all Total score: 0 Social History Living Situation History Housing: House Housing Other:: Lives at home with parents. Tobacco History Smoking Status: Current some day smoker Packs per Day: 0.5 Second Hand Smoke Exposure: No Alcohol History Alcohol Intake: Current Alcohol Intake Frequency: 3 or More Drinks per Day Alcohol Intake Frequency Other:: DAILY Domestic Abuse History Do You Feel Safe at Home: Yes Review of Systems Report any current symptoms Only answer those that you have currently: Past Medical History Past Medical History Have you ever been diagnosed with any of the following: Neurological Problems Seizures: No Cardiology Problems Congestive Heart Failure: No Respiratory Problems Chronic Obstructive Pulmonary Disease (COPD): No Asthma: Yes (breathing difficulties) Stomache/Intestinal Problems Cirrhosis: Yes Genital/Urinary Problems Renal Disease: No Endocrine Problems Diabetes Mellitus Type 1: No Diabetes Mellitus Type 2: No Blood Problems Sickle Cell Disease: No Psychologic Problems Depression: Yes Anxiety: Yes Other Problems Autoimmune Disease: No Blood Transfusions: No Anesthesia Reactions: No MRSA: No Cancer: No History of Present Illness HPI Narrative Garcia is a 29 y/o male with PMHx of Alcohol abuse disorder with withdrawal and C7 abscess who comes in for a follow-up after being discharged from the hospital for alcohol withdrawal and cervical abscess. He says that he was trying to be transferred from the hospital to a place with ENT services, however was not excepted at the time due to lack of symptoms. He does endorse some neck pain, however does not endorse a fever at this time. He says that he wants to stop drinking and is willing to try any medicines for this. He also said that he had a job recently, however the season had ended he stopped working. He says he is working with his dad right now. He also says that he has not been sleeping well. He has no other complaints at this time. Review of Systems Review of Systems Narrative Review of Systems: Constitutional: No fever, chills, fatigue, weakness, weight loss HEENT: No eye pain, vision loss, ear pain, hearing loss, dysphagia, Cardiovascular: No chest pain, palpitations, edema, pain with walking Respiratory: No cough, shortness of breath, wheezing GI: No NVD, abdominal pain, constipation, blood in stool, loss of appetite, heartburn Extremities: No presence of pitting edema MSK: No back pain, joint pain, joint swelling Neuro: No dizziness, numbness, weakness, headaches, seizures, tremors Psych: No anxiety, depression Objective/Exam Narrative Physical exam: General: AAOx3, NAD, HEENT: Moist mucous membranes, conjunctiva clear, EOMI, PERRLA, Neck: Pain to palpitation of cervical spine Cardiovascular: S1, S2, radial pulses +2 bilat, RRR Pulmonary: CTAB bilat no cough, no wheezing GI: No tenderness to light or deep palpitation, no guarding, rigidity, rebound tenderness or distension Extremities: No presence of trace or pitting edema in lower extremities bilaterally, dorsalis pedis pulses +2 bilaterally Neuro: AAOx3, no focal motor or sensory deficits in the UE or LE bilat Psych: Able to cooepraete Assessment & Plan Diagnosis / Problem List (1) Alcohol abuse with withdrawal: Status: Acute Assessment & Plan: Patient would likely benefit from intramuscular injection of Revia however this has been a specialty pharmacy Patient to take oral Vivitrol in the meantime Plan: Naltrexone 50 mg by mouth every day Ordered Revia 380 mg IM injection through specialty pharmacy (2) Abscess of neck: Status: Acute Assessment & Plan: Was recently discharged from the hospital for abscess of neck, however was not transferred due to lack of symptoms Plan: Lidocaine patches Flexeril 5 mg at night ENT referral ER precautions if patient symptoms worsen Orders: Referrals Ears, Nose, and Throat Office Procedures [facility] Level of Care Nursing/Assessment Patient Status: Established Patient Nursing Assessment/Reassessment: Medication Reconciliation, Update PMH in EMR and Vital Signs Coordination of Care: Complex Care and Chronic Disease 1-5, Complex Care/Chronic Disease 5 or more, Consent,records obtained, informed consent, Lab and Imaging orders, Results/Orders obtained and Staff clarify orders Established Patient Charge Established Patient Point Assignment: 125 Established Patient Point Charge: EP Level 4 (120-155)
[2024-12-12 13:17] VITALS: BP 141/93; PULSE 90; RESP 20; TEMP 36.4; O2SAT 96
== END 2024-12-12 14:38 | disposition home or self-care (01) ==
LOC: HODAHC 13:04
PROVIDERS: Supervising Provider Internal Medicine
DX: F10.139 Alcohol abuse with withdrawal, unspecified (principal); L02.11 Cutaneous abscess of neck
CPT/HCPCS: 99214; G0463

== ENCOUNTER 2024-12-13 11:36 | Inpatient (IN) | payer MEDICAID, SELFPAY ==
[2024-12-13] VITALS (11 sets, daily range): BP systolic 84–131; BP diastolic 51–73; PULSE 46–84; RESP 14–25; TEMP 36.1–37.3; O2SAT 95–99; BMI 24.7
--- NOTE | 2024-12-13 | XR_ITS ---
EXAM: MR cervical spine wo/w con CLINICAL HISTORY: Monitor progression of anterior cervical spine abs COMPARISON: MRI cervical spine studies of 12/04/2024, 11/26/2024, 11/25/2024. CT cervical spine 11/23/2024, 01/03/2024, 05/24/2022. TECHNIQUE: Multiplanar and multisequence MR cervical spine wo/w con. 7 mL of Gadavist administered intravenously reportedly without immediate complication. FINDINGS: SPINAL CORD: Cervical spinal cord demonstrates normal morphology and signal intensity. No evidence for edema, expansile mass or syrinx. No significant impingement. BONES: Vertebral body height and alignment are normal. Marrow signal is within normal limits. No evidence for acute fracture. No aggressive marrow space-occupying lesion. No evidence for osteomyelitis. SOFT TISSUES: No evidence for paraspinous abscess or mass. Normal appearing esophagus is present in the prevertebral space in the region of interest. SPINAL CANAL and INTERVERTEBRAL DISCS: No epidural abscess. Redemonstration of minimal posterior disc protrusions from C3-4 through C5-C6, with very mild central canal stenosis at C5-6 and to minimal degrees at C4-C5 and C3-C4. OTHER: No additional significant findings. IMPRESSION: Negative cervical spine MRI for abscess, fracture, mass, significant disc herniation, significant cord impingement, cord signal abnormality or high-grade neural foraminal stenosis.
--- NOTE | 2024-12-13 12:09 | EDNOTE_ITS ---
ED General RME/HPI General Chief complaint: General Adult/Misc Complain Stated complaint: UNKNOWN, GRABBING THROAT, JUST LEFT HOSPITAL Time Seen by Provider: 12/13/24 12:09 Arrival date/time: 12/13/24 11:36 29-year-old male patient with significant history of chronic alcoholism, was recently discharged from this hospital last December 04, came in for evaluation regarding worsening neck pain. According to the patient he had worsening neck pain since yesterday, difficulty swallowing, and it is hard to talk. Patient also admits to last alcohol intake about 3 days ago. Had a follow-up with PCP yesterday. Patient was diagnosed with alcohol withdrawal symptoms, got intubated was placed in the ICU. Patient was diagnosed with anterior cervical spine abscess that was been there since last week of November. Several attempts to transfer this patient with oral maxillofacial and ENT however due to no symptoms during the time patient was deemed stable for discharge home on Augmentin patient denies any cough denies any other complaints no medication was taken prior to ER visit. Related Data Previous Rx's ?Medication ?Instructions ?Recorded pantoprazole 40 mg tablet,delayed 40 mg PO DAILY 1 tue #30 tabs 11/06/24 release (Protonix) buspirone 7.5 mg tablet 7.5 mg PO BID #20 tabs 11/17 folic acid 1 mg tablet 1 mg PO QDAY 1 month #30 tab s 11/19/24 naltrexone 50 mg tablet 50 mg PO QDAY 1 month #30 ta bs 11/19/24 thiamine mononitrate (vit B1) 100 100 mg PO QDAY 1 tue #30 tabs 11/19/24 mg tablet amoxicillin-potassium clavulanate 1 tab PO Q12H 14 day s #28 tabs 12/05/24 1,000 mg-62.5 mg tablet,ext.rel 12hr (Augmentin XR) cyclobenzaprine 5 mg tablet 5 mg PO QHS 1 month #30 ta bs 12/12/24 lidocaine 5 % topical patch 1 patch topical QDAY 1 tue #30 ea 12/12/24 naltrexone 50 mg tablet 50 mg PO QDAY 1 month #30 ta bs 12/12/24 naltrexone microspheres 380 mg 380 mg IM QMONTH 1 amanda h #1 ea 12/12/24 intramuscular suspension,extended release syringe with needle, safety 3 mL #100 ea 12/12/24 25 gauge x 1 (Aqinject Safety Syringe) Allergies Allergy/AdvReac Type Severity Reaction Status Date / Time No Known Allergies Allergy Verified 12/13/24 11:42 Review of Systems Review of Systems Narrative Review of Systems: Review of system reviewed and within normal limits except mentioned in HPI ED Exam Narrative Physical exam: VITAL SIGNS: Reviewed. GENERAL APPEARANCE: Alert and interactive, follows commands, no acute distress, shaky HEAD AND FACE: Non-traumatic. ENT: PERRL, pink conjunctivitis, eyelid no trauma, Mucous membrane moist. NECK: Supple, anterior neck tenderness, no nuchal rigidity. CHEST: No tenderness, no crepitus, no paradoxical movement, no retractions. LUNGS: Clear, well ventilated, symmetric, no rales, no wheezing, no ronchi, no stridor, good breath sounds bilaterally. HEART: Regular rate, regular rhythm, no murmur, no gallops. ABDOMEN: Soft, positive bowel sounds, nondistended, no guarding, nontender, no rebound, no masses, RECTAL: Deferred. GENITAL: Deferred. NEUROLOGICAL: Gross motor function intact sensory function intact, Appropriate for age. MUSCULOSKELETAL: low back nontender, full range of motion. EXTREMITIES: Nontender, full range of motion. SKIN: Color pink, dry, no rash, no lacerations, no abrasions, no contusions. LYMPHATICS: Deferred. Course Quality Measures none Orders Category Date Time Status COVID-19 Screening Questionnaire NOW Care 12/13/24 15:38 Active Decision to Admit X1 Care 12/13/24 15:38 Active EKG (ED ONLY) *Do not use* NOW Care 12/13/24 12:13 Completed MRI Screening NOW Care 12/13/24 12:20 Active EKG (ED Only) Stat Exams 12/13/24 12:13 Draft MR cervical spine wo/w con Stat Exams 12/13/24 Completed XR chest 1V Stat Exams 12/13/24 12:19 Completed Alcohol, Blood Medical Stat Lab 12/13/24 12:31 Completed Blood Culture (Lab) Stat Lab 12/13/24 12:36 Received C-Reactive Protein Stat Lab 12/13/24 12:31 Completed CBC Stat Lab 12/13/24 12:31 Completed Comprehensive Metabolic Panel Stat Lab 12/13/24 12:31 Completed Drug Screen,Urine Stat Lab 12/13/24 13:52 Completed ESR [Sed Rate (ESR)] Stat Lab 12/13/24 12:31 Completed Lactate (Lactic Acid) Stat Lab 12/13/24 12:31 Completed Lactic Acid, 3 HR Stat Lab 12/13/24 15:39 Ordered Partial Thromboplastin Time Stat Lab 12/13/24 12:31 Completed Procalcitonin Stat Lab 12/13/24 12:31 Completed Troponin I Stat Lab 12/13/24 12:31 Completed LORazepam [Ativan Inj] Med 12/13/24 12:19 Discontinued 2 mg IVP X1 ONE LORazepam [Ativan Inj] Med 12/13/24 15:22 Discontinued 2 mg IVP X1 ONE PHENobarbital Inj 130 mg Med 12/13/24 12:20 Discontinued Sodium Chloride 0.9% Flush [NS Flush] 12 ml IVP X1 Piper/Tazo 3.375 gm Premix [Zosyn] Med 12/13/24 12:27 Discontinued 3.375 gm in 50 ml IV X1 Ringers Lactated 1000 ml [Lactated Ringers] 1,000 ml Med 12/13/24 12:20 Discontinued IV 999 mls/hr Vancomycin/Ns 1 gm Ivpb 200 ml Med 12/13/24 12:28 Discontinued IV X1 Vital Signs Vital signs: Vital Signs Temperature 97.8 F 12/13/24 11:51 Pulse Rate 84 12/13/24 11:51 Respiratory Rate 19 12/13/24 11:51 Blood Pressure 131/64 H 12/13/24 11:51 Pulse Oximetry (%) 96 12/13/24 11:51 Oxygen Delivery Method Room Air 12/13/24 11:51 Discharge Plan Plan Patient Disposition: Admit Acute Care w/in Hospital Discharge Disposition comment: stable Prescriptions/Referrals Prescriptions/Med Rec: No Action naltrexone 50 mg tablet 50 mg PO QDAY 30 Days Qty: 30 1RF Rx Instructions: Take one tablet by mouth every day lidocaine 5 % adhesive patch,medicated 1 patch topical QDAY 30 Days Qty: 30 1RF Rx Instructions: leave on most painful area for up to 12 hrs cyclobenzaprine 5 mg tablet 5 mg PO QHS 30 Days Qty: 30 1RF Rx Instructions: Take one tablet by mouth every night (DME) Aqinject Safety Syringe 3 mL 25 gauge x 1 syringe See Rx Instructions .Route Qty: 100 0RF Rx Instructions: As directed naltrexone microspheres 380 mg suspension,extended rel recon 380 mg IM QMONTH 30 Days Qty: 1 2RF Rx Instructions: Inject intramuscularly once a month as directed pantoprazole [Protonix] 40 mg tablet,delayed release (DR/EC) 40 mg PO DAILY 30 Days Qty: 30 3RF Rx Instructions: Take one tablet by mouth twice a day buspirone 7.5 mg tablet 7.5 mg PO BID Qty: 20 0RF naltrexone 50 mg tablet 50 mg PO QDAY 30 Days Qty: 30 0RF thiamine mononitrate (vit B1) 100 mg Tablet 100 mg PO QDAY 30 Days Qty: 30 0RF folic acid 1 mg Tablet 1 mg PO QDAY 30 Days Qty: 30 0RF amoxicillin-pot clavulanate [Augmentin XR] 1,000-62.5 mg tablet extended release 12 hr 1 tab PO Q12H 14 Days Qty: 28 0RF Referrals: No Primary/Family,Physician [Primary Care Provider] - In 1 week Problem List Clinical Impression: Alcohol abuse with withdrawal Patient/Caregiver Discharge Instructions Discharge Activity: activity as tolerated Print Language: Maldivian Stand Alone Forms: every[employer] Award Info., Patient Portal Info Letter MDM Narrative MDM hospital course (for use when minimal MDM required): 12/13/24 11:36 29-year-old male patient with significant history of chronic alcoholism, was recently discharged from this hospital last December 04, came in for evaluation regarding worsening neck pain. According to the patient he had worsening neck pain since yesterday, difficulty swallowing, and it is hard to talk. Patient also admits to last alcohol intake about 3 days ago. Had a follow-up with PCP yesterday. Patient was diagnosed with alcohol withdrawal symptoms, got intubated was placed in the ICU. Patient was diagnosed with a nterior cervical spine abscess that was been there since last week of November. Several attempts to transfer this patient with oral maxillofacial and ENT however due to no symptoms during the time patient was deemed stable for discharge home on Augmentin patient denies any cough denies any other complaints no medication was taken prior to ER visit. MRI of the cervical spine came back with no more cervical abscess noted. Patient's workup is significant for hemoglobin of 11.1 sodium 134 chloride 97 lactic acid 2.8 AST ALT alkaline phos slightly elevated positive barbiturates and benzo. Chest x-ray came back unremarkable. EKG showed normal sinus rhythm, ventricular rate of 83 bpm, no ST segment elevation depression noted. Initial CIWA score was noted to be 27, patient received IV phenobarbital, IV Ativan and IV fluids repeat CIWA score was noted to be 26 Case discussed with hospitalist, who admitted the patient. Medication Administration(s) Medication Administration History Discontinued Medications Phenobarbital Sodium 130 mg/ (Sodium Chloride 12 ml) 0 mg IVP X1 ONE Stop: 12/13/24 12:21 Last Admin: 12/13/24 12:46 Dose: 130 mg Documented By: EF Comments: medication not scanning Lactated Ringer's (Lactated Ringers) 1,000 mls @ 999 mls/hr IV .Q1H1M ONE Stop: 12/13/24 13:20 Last Admin: 12/13/24 12:46 Dose: 999 mls/hr Documented By: EF Piperacillin/Tazobactam/Dextrose (Zosyn) 3.375 gm in 50 mls @ 100 mls/hr IV X1 ONE; Protocol Stop: 12/13/24 12:56 Last Infusion: 12/13/24 13:15 Dose: Infused Documented By: Admin: 12/13/24 12:45 Dose: 100 mls/hr Documented By: EF Vancomycin/Sodium Chloride (Vancomycin/Ns 1 Gm Ivpb) 200 mls @ 120 mls/hr IV X1 ONE Stop: 12/13/24 14:07 Last Admin: 12/13/24 14:49 Dose: 120 mls/hr Documented By: EF Lorazepam (Lorazepam 2 Mg/Ml Vial) 2 mg IVP X1 ONE Stop: 12/13/24 12:20 Last Admin: 12/13/24 12:45 Dose: 2 mg Documented By: EF Lorazepam (Lorazepam 2 Mg/Ml Vial) 2 mg IVP X1 ONE Stop: 12/13/24 15:23 Last Admin: 12/13/24 15:46 Dose: 2 mg Documented By: EF Diagnosis Differential Diagnosis ED Complaint MDM: Cervical abscess, alcohol withdrawal symptoms, dehydration Diagnoses ruled out and/or further discussions: Alcohol withdrawal symptoms
--- NOTE | 2024-12-13 12:13 | EKG_ITS ---
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
--- NOTE | 2024-12-13 12:19 | XR_ITS ---
CLINICAL INDICATION: Chest pain and shortness of breath today TECHNIQUE: XR chest 1V Exam date and time: 12/13/2024 at 1:01 p.m. COMPARISON: 11/17/2024 FINDINGS: The cardiomediastinal silhouette is within normal limits. Mild hypoventilation. No airspace opacities suggestive of pneumonia. No mass detected. No pleural effusion or pneumothorax. Convex left spinal curvature is likely positional in etiology. Otherwise, no acute osseous abnormalities detected. IMPRESSION: No radiographic evidence for acute cardiopulmonary abnormality. - This report was generated utilizing speech recognition software. -
[2024-12-13 12:41] LABS: Lactate (Lactic Acid) 2.8 mMol/L (0.4-2.0)
[2024-12-13 12:45] LABS: Basophils # (Auto) 0.0 Thou/mm3 (0.0-0.2); Basophils % (Auto) 1 % (0-2.5); Eosinophils # (Auto) 0.0 Thou/mm3 (0.0-0.5); Eosinophils % (Auto) 0 % (0-10); Hematocrit 33.0 % (41.0-53.0); Hemoglobin 11.1 g/dL (13.5-16.0); Immature Granulocytes Auto 0.01 Thou/mm3 (0.00-0.00); Lymphocytes # (Auto) 0.5 Thou/mm3 (1.0-4.8); Lymphocytes % (Auto) 10 % (10-50); Mean Corpuscular HGB Conc 33.6 g/dl (31.0-37.0); Mean Corpuscular Hemoglobin 28.4 pg (25.0-35.0); Mean Corpuscular Volume 84 fL (80-100); Monocytes # (Auto) 0.2 Thou/mm3 (0.0-0.8); Monocytes % (Auto) 4 % (0-12); Neutrophils # (Auto) 4.0 Thou/mm3 (1.8-7.7); Neutrophils % (Auto) 84 % (37-80); Nucleated Red Blood Cell # 0.00 Thou/mm3 (0.00-0.00); Nucleated Red Blood Cell % 0 /100 WBC (0); Platelet Count 361 Thou/mm3 (140-440); RDW Standard Deviation 53.6 fL (35.1-43.9); Red Blood Count 3.91 Miln/mm3 (4.50-5.90); White Blood Count 4.8 Thou/mm3 (3.8-10.6)
[2024-12-13] MEDS: PIPER/TAZO 3.375 GM PREMIX 3.375 GM/50 ML BAG IV (12:45)
[2024-12-13] MEDS: LORazepam 2 MG/ML VIAL IVP ×2 (12:45→15:46)
[2024-12-13] MEDS: PHENobarbital Inj 130 MG, SODIUM CHLORIDE 0.9% FLUSH 12 ML IVP (12:46)
[2024-12-13] MEDS: RINGERS LACTATED 1000 ML 1,000 ML 999 ML IV (12:46)
[2024-12-13 12:59] LABS: Sed Rate (ESR) 10 mm/hr (0-15)
[2024-12-13 13:01] LABS: Partial Thromboplastin Time 30.8 Seconds (22.0-36.0)
[2024-12-13 13:12] LABS: Alanine Aminotransferase 64 U/L (10-49); Albumin, Serum 5.2 gm/dL (3.5-5.0); Albumin/Globulin Ratio 2.1 (1.2-2.2); Alcohol, Blood Medical < 3.0 mg/dL (0-10.0); Alkaline Phosphatase 177 U/L (46-116); Anion Gap 13 (7-16); Aspartate Amino Transferase 69 U/L (0-34); BUN/Creatinine Ratio 8 Ratio (12-20); Bilirubin,Total 1.1 mg/dL (0.3-1.2); Blood Urea Nitrogen 8 mg/dL (9-23); C-Reactive Protein < 0.5 mg/dL (0.0-0.9); Calcium 8.9 mg/dL (8.3-10.6); Calcium (Corrected) 8.9 mg/dL (8.5-10.1); Carbon Dioxide 23.9 mMol/L (20.0-31.0); Chloride 97 mMol/L (98-107); Creatinine (Component) 1.0 mg/dL (0.6-1.3); Estimated Creatinine Clearance 89.3 mL/min (>60); Globulin 2.5 gm/dL (2.3-3.5); Glucose 121 mg/dL (74-106); Osmolality,Calculated 267 (275-295); Potassium 3.7 mMol/L (3.4-5.1); Procalcitonin < 0.04 ng/ml (0.0-0.49); Sodium 134 mMol/L (136-145); Total Protein 7.7 gm/dL (5.7-8.2); Troponin I < 0.002 ng/mL (0.0-0.045); eGFR > 60 See Note
[2024-12-13 14:13] LABS: Amphetamine/Methamp Scrn,U Negative (Negative); Barbiturate Screen,Urine Positive (Negative); Benzodiazepines Screen,Urine Positive (Negative); Benzoylecgonine Screen, Ur Negative (Negative); Fentanyl Screen,Urine Negative (Negative); Opiate Screen,Urine Negative (Negative); THC Screen,Urine Negative (Negative)
[2024-12-13] MEDS: VANCOMYCIN/NS 1 GM IVPB 200 ML IV (14:49)
[2024-12-13 15:39] LABS: Reflex Lactate? Y
[2024-12-13 16:17] LABS: Lactic Acid, 3 HR 1.1 mMol/L (0.4-2.0)
--- NOTE | 2024-12-13 16:39 | EKG_ITS ---
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
--- NOTE | 2024-12-13 16:47 | ESHP_ITS ---
<Statement entered by Ann-Marie Prasad MD - 12/14/24 08:46> Mr. Ybarra is a 29 y/o male with PMH cirrhosis, esophageal varices 2/2 alcohol use disorder and recurrent hospital admissions for alcohol withdrawal presented to the ED for alcohol withdrawal with CIWA score of 18. Hemoglobin is stable. Patient will be admitted for CIWA protocol. Patient was seen and examined by me personally. I have directly supervised and reviewed documentation by the team resident and agree with its findings with the following exceptions/and additional findings. ------- Plan of care was discussed with the attending, Dr. Guillaume Prasad, PGY-2 Documentation for date of: 12/13/24 HPI History of Present Illness History of present illness: Mr. Ybarra is a 29 y/o male with PMH cirrhosis and esophageal varices 2/2 EtOH use disorder who presented to the ED 12/13 with generalized myalgia, sore throat, tremor, paresthesias, chest pain, neck pain and shortness of breath. Last drink 3 days ago, drank 40 oz beer. Associated with nausea and one episode of vomiting this AM. He notes that his cousin 3 days ago from cirrhosis 2/2 EtOH. Patient recently hospitalized 11/17-12/05 for alcohol withdrawal requiring ICU level of care with Precedex gtt. Hospital course complicated by Staph hominis bacteremia. TTE did not show vegetations, and cardiology ruled that DANO was unnecessary. Found to have soft tissue abscess anterior to C7 vertebral body causing neck pain. Multiple attempts to transfer the patient for neurosurgical evaluation were made, declined transfer. Dr. Jorge Phipps, an ENT specialist at [facility] noted no surgical intervention was urgently necessary after reviewing the case. Patient was seen at [facility] 12/[address] Meyers. ED course: Afebrile, VSS. Labs significant for hgb 11.1, HCT 33, Na 134, Cl 97, AST 69, ALT 64, alk phos 177, albumin 5.2. Lactic acid 2.8. Troponin and procal unremarkable. EtOH <3. UDS + barbiturates, benzo (this might be taken after ED med administration). EKG NSR, HR 83, QTc 426, possible arrhythmia. CXR and C spine MRI unremarkable. Blood cultures pending. Given lorazepam 2 mg IV x2, Zosyn, 1L LR, phenobarbital 130 mg IV. PMHx: cirrhosis and esophageal varices 2/2 EtOH use disorder, soft tissue abscess anterior to C7 vertebral body Allergies: NKDA Home meds: buspirone 7.5 mg daily naltrexone 50 mg daily thiamine mononitrate (vit B1) 100 mg daily folic acid 1 mg daily pantoprazole 40 mg daily SgHx: none SHx: Previously drank hard liquor 1 year ago, now drinks ~40 oz beer daily. Previous UDS + THC, benzos, barbiturates, methamphetamines, opiates FHx: none reported Review of Systems Review of Systems Narrative Review of Systems: 14 point ROS negative other than HPI Exam Vital Signs Temp Pulse Resp BP Pulse Ox O2 Del Method 99.2 F 64 18 116/63 98 Room Air 12/13/24 16:04 12/13/24 16:04 12/13/24 16:04 12/13/24 16:04 12/13/24 16:04 12/13/24 16:04 Narrative Exam General: Acute distress, lying in bed Eye: PERRL, EOMI, normal conjunctiva, no scleral icterus HENT: Normocephalic, atraumatic, normal hearing, moist oral mucosa Neck: Supple, non-tender, no JVD, no lymphadenopathy Lungs: Clear to auscultation bilaterally, non-labored respirations, symmetric chest rise, no use of accessory muscles Heart: Normal S1 and S2, no S3 or S4 appreciated. Normal rate and regular rhythm, no murmurs, rubs gallops, or edema. Peripheral pulses intact bilaterally, capillary refill brisk distally Abdomen: Soft, non-tender, non-distended, normal bowel sounds. No guarding or rebound tenderness. Musculoskeletal: Normal range of motion and strength, no tenderness or swelling Skin: Skin is warm, dry, no rashes or lesions. Neurologic: Alert, awake and oriented x3. CN II-XII grossly intact. No focal neuro deficits. No signs of meningeal irritation noted. Psychiatric: Cooperative, appropriate mood and affect CIWA: Nausea/vomitin Tremor: 7 Paroxysmal sweats: 0 Anxiety: 0 Agitation: 0 Tactile disturbance: 4 Auditory disturbance: 0 Visual disturbance: 1 Headache/fullness in head: 3 Orientation/clouding of sensorium: 0 Total: 18 Results: Labs 12/14/24 05:27 12/14/24 05:27 Labs: Short CBC 12/13/24 Range/Units 12:31 WBC 4.8 (3.8-10.6) Thou/mm3 Hgb 11.1 L (13.5-16.0) g/dL Hct 33.0 L (41.0-53.0) % Plt Count 361 D (140-440) Thou/mm3 BMP 12/13/24 12:31 Sodium 134 L Potassium 3.7 Chloride 97 L Carbon Dioxide 23.9 BUN 8 L Creatinine 1.0 Glucose 121 H Calcium 8.9 Cardiac Enzymes 12/13/24 Range/Units 12:31 Troponin I < 0.002 (0.0-0.045) ng/mL Liver Function 12/13/24 Range/Units 12:31 Total Bilirubin 1.1 (0.3-1.2) mg/dL AST 69 H (0-34) U/L ALT 64 H (10-49) U/L Alkaline Phosphatase 177 H (46-116) U/L Albumin 5.2 H (3.5-5.0) gm/dL Quality Measures Quality Measures none Medications Home Medications and Allergies Allergies Allergy/AdvReac Type Severity Reaction Status Date / Time No Known Allergies Allergy Verified 12/13/24 11:42 Visit Medications Acetaminophen (Acetaminophen 325 Mg Tablet) 650 mg PO Q6H PRN PRN Reason: Fever >100.3 Stop: 01/12/25 16:38 Acetaminophen (Acetaminophen 325 Mg Tablet) 650 mg PO Q6H PRN PRN Reason: PAIN SCALE 1-3 (mild Stop: 01/12/25 16:38 Heparin Sodium (Porcine) (Heparin Sod Inj 5000 Unit/Ml Vial) 5,000 unit SC Q8HR APOORVA Stop: 12/27/24 21:59 Lactated Ringer's (Lactated Ringers) 1,000 mls @ 125 mls/hr IV .Q8H APOORVA Stop: 01/12/25 16:44 Lorazepam (Lorazepam 0.5 Mg Tablet) 0.5 mg PO Q6H PRN PRN Reason: CIWA 2-6 Stop: 12/18/24 16:45 Midazolam HCl (Midazolam Inj 1 Mg/Ml Vial 2 Ml) 2 mg IVP Q4H PRN PRN Reason: CIWA 7-11 Stop: 12/18/24 16:38 Midazolam HCl (Midazolam Inj 1 Mg/Ml Vial 2 Ml) 4 mg IVP Q4H PRN PRN Reason: CIWA 12-20 Stop: 12/18/24 16:38 Ondansetron HCl (Ondansetron Inj 2 Mg/Ml Inj 2 Ml) 4 mg IVP Q6H PRN; Protocol PRN Reason: NAUSEA OR VOMITING Stop: 01/12/25 16:38 Discontinued Medications Phenobarbital Sodium 130 mg/ (Sodium Chloride 12 ml) 0 mg IVP X1 ONE Stop: 12/13/24 12:21 Last Admin: 12/13/24 12:46 Dose: 130 mg Lactated Ringer's (Lactated Ringers) 1,000 mls @ 999 mls/hr IV .Q1H1M ONE Stop: 12/13/24 13:20 Last Infusion: 12/13/24 15:00 Dose: Infused Piperacillin/Tazobactam/Dextrose (Zosyn) 3.375 gm in 50 mls @ 100 mls/hr IV X1 ONE; Protocol Stop: 12/13/24 12:56 Last Infusion: 12/13/24 13:15 Dose: Infused Vancomycin/Sodium Chloride (Vancomycin/Ns 1 Gm Ivpb) 200 mls @ 120 mls/hr IV X1 ONE Stop: 12/13/24 14:07 Last Infusion: 12/13/24 16:30 Dose: Infused Lorazepam (Lorazepam 2 Mg/Ml Vial) 2 mg IVP X1 ONE Stop: 12/13/24 12:20 Last Admin: 12/13/24 12:45 Dose: 2 mg Lorazepam (Lorazepam 2 Mg/Ml Vial) 2 mg IVP X1 ONE Stop: 12/13/24 15:23 Last Admin: 12/13/24 15:46 Dose: 2 mg Assessment & Plan Plan Mr. Ybarra is a 29 y/o male with PMH cirrhosis and esophageal varices 2/2 EtOH use disorder who presented to the ED 12/13 with generalized myalgia, sore throat, tremor, paresthesias, chest pain, neck pain and shortness of breath. Last drink 3 days ago, drank 40 oz beer. Admitted for alcohol withdrawal. #Alcohol withdrawall in the setting of #EtOH use disorder #Cirrhosis #Hx esophageal varices Initial presentation: tremors, N/V, paresthesias, neck pain, shortness of breath, headache AST 69, ALT 64, alk phos 177. No evidence of synthetic liver dysfunction. EtOH <3 CIWA on admission 18 CXR: unremarkable Plan: - CIWA: - Aitvan 0.5 mg PO q4h CIWA 2-6 - Midazolam 2 mg IV q2h CIWA7-11 - Midazolam 4 mg IV q2h CIWA 12-20 - Librium 50 mg PO q8h - Thiamine 500 mg IV x1 - Thiamine 100 mg PO BID - Folic acid 1 mg PO BID #Chest pain Most likely tactile disturbance 2/2 alcohol withdrawal Troponin unremarkable EKG NSR HR 83, QTc 426, possible sinus arrhythmia Plan: - Pending repeat EKG, flu, COVID - See withdrawal plan as above #Elevated lactic acid LA 2.8 on admit Given 1L LR, Vanc/Zosyn in ED Plan: - Maintenance fluids LR 125 mL/hr - Pending repeat lactic acid #Electrolyte disturbances #Hyponatremia #Hypochloremia Plan: - Fluid restriction 1800 mL #Hx soft tissue abscess anterior to C7 vertebral body - resolved Afebrile, no leukocytosis, procal unremarkable C spine MRI 12/13: negative for abscess, fracture, mass, disc herniation, cord impingement, cord signal abnormality or high grade neural foraminal stenosis Plan: - F/U outpatient with ENT if symptoms return #Depression Plan: - Buspar 7.5 mg daily (home med) Checklist Dispo: Admit to tele for CIWA Lines: PIV Diet: regular Bowel Reg: doc/senna PRN VTE ppx: heparin subQ GI ppx: pantoprazole 40 mg IV daily Pain mgmt: Tylenol PO PRN Code status: full Plan discussed with Dr. Anoop Prasad and Dr. Guillaume Galvan MD PGY1 Attending Provider Attestation/Addendum I, Julianna Galaviz DO, attest that I was physically present for the louise portions of the service and evaluated the patient with the resident and I reviewed and discussed the case with the resident and agree with the resident's findings and plans of care as documented above Patient is a 29-year-old male with past medical history of alcoholic cirrhosis, alcohol withdrawal disorder, chronic alcohol use, precervical abscess who was brought to the ED due to alcohol withdrawals. Patient has been on management 10 for this abscess, which appears to be resolved on C-spine MRI that was done here in the ED on presentation. Patient complains of pain in his neck and chest region worse with deep inspiration. He also complains of throat pain. However, there is no erythema noted. Patient is able to protect his airway. Patient has tenderness to palpation in his lower sternal region. Patient endorses having visual hallucinations, but denies any auditory hallucinations. He has history, anxiety, headache, nausea and is very tremulous such that patient cannot sit up without assistance. He is able to follow commands appropriately. He endorses [id number] all over. CIWA score of 18 noted. Patient states that he does not know how to get help for substance rehab. Patient has had multiple readmissions due to acute alcohol withdrawal. Will have social media editor involved and family involved to provide patient with appropriate resources and path for rehabilitation. Will start patient on Librium and monitor on CIWA protocol. Admit to telemetry for further workup and medical management of acute alcohol withdrawals. Patient denies any suicidal or homicidal ideation at this time.
[2024-12-13] MEDS: RINGERS LACTATED 1000 ML 1,000 ML 125 ML IV (17:20)
[2024-12-13 17:54] LABS: Influenza A Ag Negative; Influenza B Ag Negative
[2024-12-13] MEDS: THIAMINE INJ 500 MG in SODIUM CHLORIDE 0.9% 100 ML 205 MG IV (18:14)
[2024-12-13] MEDS: MIDAZOLAM INJ 1 MG/ML VIAL 2 ML 4 MG IVP ×2 (20:03→22:13)
[2024-12-13] MEDS: ACETAMINOPHEN 325 MG TABLET 650 MG PO (20:04)
[2024-12-13 20:31] LABS: Lactate (Lactic Acid) 0.8 mMol/L (0.4-2.0)
[2024-12-13] MEDS: THIAMINE 100 MG TABLET PO (21:46)
[2024-12-13] MEDS: FOLIC ACID 1 MG TABLET PO (21:46)
[2024-12-13] MEDS: HEPARIN SOD INJ 5000 UNIT/ML VIAL SC (21:47)
[2024-12-14] VITALS: BP 131/66; PULSE 47; PULSE 67; RESP 16; TEMP 36.2; O2SAT 96
[2024-12-14] MEDS: RINGERS LACTATED 1000 ML 1,000 ML 125 ML IV (01:20)
[2024-12-14] MEDS: MIDAZOLAM INJ 1 MG/ML VIAL 2 ML 4 MG IVP ×7 (01:31→20:05)
[2024-12-14 04:00] VITALS: BP 122/70; PULSE 52; PULSE 57; RESP 19; TEMP 36.7; O2SAT 95
[2024-12-14] MEDS: ACETAMINOPHEN 325 MG TABLET 650 MG PO ×3 (04:06→20:04)
[2024-12-14] MEDS: HEPARIN SOD INJ 5000 UNIT/ML VIAL SC ×3 (05:55→21:56)
[2024-12-14 06:00] VITALS: BMI 25.0
[2024-12-14 06:20] LABS: Basophils # (Auto) 0.0 Thou/mm3 (0.0-0.2); Basophils % (Auto) 1 % (0-2.5); Eosinophils # (Auto) 0.0 Thou/mm3 (0.0-0.5); Eosinophils % (Auto) 1 % (0-10); Hematocrit 30.0 % (41.0-53.0); Hemoglobin 10.1 g/dL (13.5-16.0); Immature Granulocytes Auto 0.00 Thou/mm3 (0.00-0.00); Lymphocytes # (Auto) 1.3 Thou/mm3 (1.0-4.8); Lymphocytes % (Auto) 39 % (10-50); Mean Corpuscular HGB Conc 33.7 g/dl (31.0-37.0); Mean Corpuscular Hemoglobin 28.7 pg (25.0-35.0); Mean Corpuscular Volume 85 fL (80-100); Monocytes # (Auto) 0.7 Thou/mm3 (0.0-0.8); Monocytes % (Auto) 20 % (0-12); Neutrophils # (Auto) 1.3 Thou/mm3 (1.8-7.7); Neutrophils % (Auto) 39 % (37-80); Nucleated Red Blood Cell # 0.00 Thou/mm3 (0.00-0.00); Nucleated Red Blood Cell % 0 /100 WBC (0); Platelet Count 287 Thou/mm3 (140-440); RDW Standard Deviation 53.8 fL (35.1-43.9); Red Blood Count 3.52 Miln/mm3 (4.50-5.90); White Blood Count 3.3 Thou/mm3 (3.8-10.6)
[2024-12-14 06:52] LABS: Alanine Aminotransferase 42 U/L (10-49); Albumin, Serum 4.1 gm/dL (3.5-5.0); Albumin/Globulin Ratio 1.8 (1.2-2.2); Alkaline Phosphatase 144 U/L (46-116); Anion Gap 10 (7-16); Aspartate Amino Transferase 40 U/L (0-34); BUN/Creatinine Ratio 6 Ratio (12-20); Bilirubin,Total 1.5 mg/dL (0.3-1.2); Blood Urea Nitrogen 5 mg/dL (9-23); Calcium 8.8 mg/dL (8.3-10.6); Calcium (Corrected) 8.8 mg/dL (8.5-10.1); Carbon Dioxide 25.8 mMol/L (20.0-31.0); Chloride 101 mMol/L (98-107); Creatinine (Component) 0.8 mg/dL (0.6-1.3); Estimated Creatinine Clearance 111.6 mL/min (>60); Globulin 2.3 gm/dL (2.3-3.5); Glucose 87 mg/dL (74-106); Magnesium 1.8 mg/dL (1.6-2.6); Osmolality,Calculated 270 (275-295); Phosphorous 3.5 mg/dL (2.4-5.1); Potassium 3.7 mMol/L (3.4-5.1); Sodium 137 mMol/L (136-145); Total Protein 6.4 gm/dL (5.7-8.2); eGFR > 60 See Note
--- NOTE | 2024-12-14 07:03 | ESPR_ITS ---
<Statement entered by Ann-Marie Prasad MD - 12/14/24 16:34> Patient is seen at bedside. Patient is very somnolent and is sleeping. Patient CIWA score earlier this morning was 20 and repeat CIWA in the afternoon is 17. Patient continues to be jittery and has tremor and anxiety. Patient states that he has visual hallucinations, and endorses to feeling things crawling up his legs. Will continue CIWA protocol with IV Versed. Patient was seen and examined by me personally. I have directly supervised and reviewed documentation by the team resident and agree with its findings. ------- Plan of care was discussed with the attending, Dr. Guillaume Prasad, PGY-2 Documentation for date of: 12/14/24 Subjective Subjective Interval history: NAEO. Patient has been needing frequent IV midazolam for elevated CIWA scores. Reports headache, visual/tactile/auditory disturbances, chest and abdominal pain. Oriented. Exam Vital Signs Temp Pulse Resp BP Pulse Ox O2 Del Method 98.0 F 57 L 19 122/70 95 Room Air 12/14/24 04:00 12/14/24 04:00 12/14/24 04:00 12/14/24 04:00 12/14/24 04:00 12/14/24 04:00 Narrative Exam General: Acute distress, lying in bed Eye: PERRL, EOMI, normal conjunctiva, no scleral icterus HENT: Normocephalic, atraumatic, normal hearing, moist oral mucosa. Neck: Supple, non-tender, no JVD, no lymphadenopathy Lungs: Clear to auscultation bilaterally, non-labored respirations, symmetric chest rise, no use of accessory muscles Heart: Normal S1 and S2, no S3 or S4 appreciated. Normal rate and regular rhythm, no murmurs, rubs gallops, or edema. Peripheral pulses intact bilaterally, capillary refill brisk distally Abdomen: Soft, non-tender, non-distended, normal bowel sounds. No guarding or rebound tenderness. Musculoskeletal: Normal range of motion and strength, no tenderness or swelling Skin: Skin is warm, dry, no rashes or lesions. Neurologic: Alert, awake and oriented x3. CN II-XII grossly intact. No focal neuro deficits. No signs of meningeal irritation noted. Tremors appreciated in outstretched arms Psychiatric: Cooperative, appropriate mood and affect CIWA: Nausea/vomitin Tremor: 7 Paroxysmal sweats: 0 Anxiety: 0 Agitation: 0 Tactile disturbance: 4 Auditory disturbance: 1 Visual disturbance: 2 Headache/fullness in head: 3 Orientation/clouding of sensorium: 0 Total: 20 Objective Labs 12/14/24 05:27 12/14/24 05:27 Labs: Laboratory Results - last 24 hr 12/13/24 12/13/24 12/13/24 12:31 13:52 16:04 WBC 4.8 RBC 3.91 L Hgb 11.1 L Hct 33.0 L MCV 84 MCH 28.4 MCHC 33.6 RDW Std Deviation 53.6 H Plt Count 361 D Neut % (Auto) 84 H Lymph % (Auto) 10 [place] % (Auto) 4 Eos % (Auto) 0 Baso % (Auto) 1 Neut # (Auto) 4.0 Lymph # (Auto) 0.5 L [place] # (Auto) 0.2 Eos # (Auto) 0.0 Baso # (Auto) 0.0 Immature Gran # (Auto) 0.01 H Absolute Nucleated RBC 0.00 Immature Gran % 0 Nucleated RBC % 0 ESR 10 APTT 30.8 Sodium 134 L Potassium 3.7 Chloride 97 L Carbon Dioxide 23.9 Anion Gap 13 BUN 8 L Creatinine 1.0 Estim Creat Clear Calc 89.3 eGFR > 60 BUN/Creatinine Ratio 8 L Glucose 121 H Calculated Osmolality 267 L Lactic Acid 2.8 H 1.1 Calcium 8.9 Corrected Calcium 8.9 Phosphorus Magnesium Total Bilirubin 1.1 AST 69 H ALT 64 H Alkaline Phosphatase 177 H Troponin I < 0.002 C-Reactive Prot, Quant < 0.5 Total Protein 7.7 Albumin 5.2 H Globulin 2.5 Albumin/Globulin Ratio 2.1 Procalcitonin < 0.04 Urine Opiates Screen Negative Urine Fentanyl Screen Negative Ur Barbiturates Screen Positive A U Amphetamin/Meth Scrn Negative U Benzodiazepines Scrn Positive A U Cocaine Metab Screen Negative U Marijuana (THC) Screen Negative Ethyl Alcohol < 3.0 Influenza A (Rapid) Influenza B (Rapid) 12/13/24 12/13/24 12/14/24 17:32 20:19 05:27 WBC 3.3 L RBC 3.52 L Hgb 10.1 L Hct 30.0 L MCV 85 MCH 28.7 MCHC 33.7 RDW Std Deviation 53.8 H Plt Count 287 D Neut % (Auto) 39 Lymph % (Auto) 39 [place] % (Auto) 20 H Eos % (Auto) 1 Baso % (Auto) 1 Neut # (Auto) 1.3 L Lymph # (Auto) 1.3 [place] # (Auto) 0.7 Eos # (Auto) 0.0 Baso # (Auto) 0.0 Immature Gran # (Auto) 0.00 Absolute Nucleated RBC 0.00 Immature Gran % 0 Nucleated RBC % 0 ESR APTT Sodium 137 Potassium 3.7 Chloride 101 Carbon Dioxide 25.8 Anion Gap 10 BUN 5 L Creatinine 0.8 Estim Creat Clear Calc 111.6 eGFR > 60 BUN/Creatinine Ratio 6 L Glucose 87 Calculated Osmolality 270 L Lactic Acid 0.8 Calcium 8.8 Corrected Calcium 8.8 Phosphorus 3.5 Magnesium 1.8 Total Bilirubin 1.5 H AST 40 H ALT 42 Alkaline Phosphatase 144 H D Troponin I C-Reactive Prot, Quant Total Protein 6.4 Albumin 4.1 D Globulin 2.3 Albumin/Globulin Ratio 1.8 Procalcitonin Urine Opiates Screen Urine Fentanyl Screen Ur Barbiturates Screen U Amphetamin/Meth Scrn U Benzodiazepines Scrn U Cocaine Metab Screen U Marijuana (THC) Screen Ethyl Alcohol Influenza A (Rapid) Negative Influenza B (Rapid) Negative Quality Measures Quality Measures none Assessment & Plan Assessment Current Active Medications: Generic Name Dose Route Start Last Admin Trade Name Freq PRN Reason Stop Dose Admin Acetaminophen 650 mg 12/13/24 16:39 12/14/24 04:06 Acetaminophen 325 Mg Tablet PO 01/12/25 16:38 650 mg Q6H PRN Administration Fever >100.3 Acetaminophen 650 mg 12/13/24 16:39 12/13/24 20:04 Acetaminophen 325 Mg Tablet PO 01/12/25 16:38 650 mg Q6H PRN Administration PAIN SCALE 1-3 (mild Buspirone HCl 7.5 mg 12/14/24 09:00 Buspirone Hcl 5 Mg Tablet PO 01/13/25 08:59 DAILY APOORVA Chlordiazepoxide HCl 50 mg 12/13/24 17:00 12/14/24 05:54 Chlordiazepoxide Hcl 10 Mg Capsule PO 12/18/24 16:59 50 mg Q8HR APOORVA Administration Folic Acid 1 mg 12/13/24 21:00 12/13/24 21:46 Folic Acid 1 Mg Tablet PO 12/18/24 20:59 1 mg BID APOORVA Administration Heparin Sodium (Porcine) 5,000 unit 12/13/24 22:00 12/14/24 05:55 Heparin Sod Inj 5000 Unit/Ml Vial SC 12/27/24 21:59 5,000 unit Q8HR APOORVA Administration Lactated Ringer's 1,000 mls @ 125 mls/hr 12/13/24 16:45 12/14/24 01:20 Lactated Ringers IV 01/12/25 16:44 125 mls/hr .Q8H APOORVA Administration Lorazepam 0.5 mg 12/13/24 17:32 Lorazepam 0.5 Mg Tablet PO 12/18/24 16:45 Q4H PRN CIWA 2-6 Midazolam HCl 4 mg 12/13/24 17:32 12/14/24 04:05 Midazolam Inj 1 Mg/Ml Vial 2 Ml IVP 12/18/24 16:38 4 mg Q2H PRN Administration CIWA 12-20 Midazolam HCl 2 mg 12/13/24 17:32 Midazolam Inj 1 Mg/Ml Vial 2 Ml IVP 12/18/24 16:38 Q2H PRN CIWA 7-11 Ondansetron HCl 4 mg 12/13/24 16:39 Ondansetron Inj 2 Mg/Ml Inj 2 Ml IVP 01/12/25 16:38 Q6H PRN NAUSEA OR VOMITING Protocol Pantoprazole Sodium 40 mg 12/13/24 17:00 12/13/24 17:20 Pantoprazole Inj 40 Mg Vial IVP 01/12/25 16:59 40 mg QDAY APOORVA Administration Sennosides 1 tab 12/13/24 17:27 Senna/Docusate Sod 1 Tab Tablet PO 01/12/25 17:26 QDAY PRN CONSTIPATION Protocol Thiamine HCl 100 mg 12/13/24 21:00 12/13/24 21:46 Thiamine 100 Mg Tablet PO 12/18/24 20:59 100 mg BID APOORVA Administration Plan Mr. Ybarra is a 29 y/o male with PMH cirrhosis and esophageal varices 2/2 EtOH use disorder who presented to the ED 12/13 with generalized myalgia, sore throat, tremor, paresthesias, chest pain, neck pain and shortness of breath. Last drink 3 days ago, drank 40 oz beer. Admitted for alcohol withdrawal. #Acute Alcohol withdrawal #EtOH use disorder #Cirrhosis #Transaminitis - improved #Hx esophageal varices Initial presentation: tremors, N/V, paresthesias, neck pain, shortness of breath, headache AST 69, ALT 64, alk phos 177. No evidence of synthetic liver dysfunction. EtOH <3 CXR: unremarkable Received thiamine 500 mg IV x1 on admission Continuing to require PRN midazolam IV Plan: - CIWA: - Aitvan 0.5 mg PO q4h CIWA 2-6 - Midazolam 2 mg IV q2h CIWA7-11 - Midazolam 4 mg IV q2h CIWA 12-20 - Librium 50 mg PO q8h - Thiamine 100 mg PO BID - Folic acid 1 mg PO BID - Will need alcohol rehab upon discharge #Chest pain - atypical Most likely tactile disturbance 2/2 alcohol withdrawal. ACS unlikely Troponin unremarkable, flu negative, COVID negative EKG NSR HR 83, QTc 426, possible sinus arrhythmia Repeat EKG showed sinus bradycardia HR 53, QTc 428 Plan: - Pending repeat troponin - See withdrawal plan as above #Elevated lactic acid - resolved LA 2.8 --> 1.1 --> 0.8 Adebrile, no leukocytosis Given 1L LR, Vanc/Zosyn in ED Plan: - CTM fever curve #Electrolyte disturbances #Hyponatremia - resolved #Hypochloremia - resolved Plan: - CTM with daily CMP #Hx soft tissue abscess anterior to C7 vertebral body - resolved Afebrile, no leukocytosis, procal unremarkable C spine MRI 12/13: negative for abscess, fracture, mass, disc herniation, cord impingement, cord signal abnormality or high grade neural foraminal stenosis Plan: - F/U outpatient with ENT if symptoms return #Depression Plan: - Buspar 7.5 mg daily (home med) Checklist Dispo: Continue CIWA Lines: PIV Diet: regular Bowel Reg: doc/senna PRN VTE ppx: heparin subQ GI ppx: pantoprazole 40 mg IV daily Pain mgmt: Tylenol PO PRN Code status: full Plan discussed with Dr. Anoop Prasad and Dr. Guillaume Galvan MD PGY1 Attending Provider Attestation/Addendum Andrés, Julianna Galaviz DO, attest that I was physically present for the louise portions of the service and evaluated the patient with the resident and I reviewed and discussed the case with the resident and agree with the resident's findings and plans of care as documented above Patient seen and eval this a.m. He remains very tremulous with a CIWA score of 15. He continues to require Versed. Patient reports that his vision is blurry and reports having tactile hallucinations. He endorses headache and nausea. He reports a globus sensation upon swallowing. Will refer speech eval. Will continue with current management.
[2024-12-14 08:00] VITALS: BP 113/70; PULSE 43; PULSE 48; RESP 18; TEMP 36.1; O2SAT 97
[2024-12-14] MEDS: FOLIC ACID 1 MG TABLET PO ×2 (08:39→20:04)
[2024-12-14] MEDS: THIAMINE 100 MG TABLET PO ×2 (08:40→20:04)
[2024-12-14 10:34] LABS: Troponin I < 0.002 ng/mL (0.0-0.045)
[2024-12-14 12:00] VITALS: BP 107/65; PULSE 74; PULSE 79; RESP 22; TEMP 36.7; O2SAT 96
[2024-12-14] MEDS: LIDOCAINE 5% 1 PATCH TOP (15:08)
--- NOTE | 2024-12-14 15:21 | PC.SS ---
Patient is a re-admit. Recently here for alcohol withdrawls. Per physician team they want to have a family meeting with patient's parents to discuss concerns with alcohol abuse and treatment. SS team has previously provided drug/alcohol resources for patient. Patient would benefit from in patient rehab but would have to be willing to go. SS team to follow up.
[2024-12-14 16:00] VITALS: BP 110/66; PULSE 65; PULSE 67; RESP 14; TEMP 36.6; O2SAT 95
[2024-12-14 20:00] VITALS: BP 114/72; PULSE 60; PULSE 61; RESP 16; TEMP 36.6; O2SAT 99
[2024-12-15] VITALS (7 sets, daily range): BP systolic 105–123; BP diastolic 59–85; PULSE 52–86; RESP 13–18; TEMP 36.1–36.4; O2SAT 97–98; BMI 25.4
[2024-12-15] MEDS: HEPARIN SOD INJ 5000 UNIT/ML VIAL SC ×3 (05:15→21:14)
[2024-12-15 06:45] LABS: Basophils # (Auto) 0.0 Thou/mm3 (0.0-0.2); Basophils % (Auto) 1 % (0-2.5); Eosinophils # (Auto) 0.1 Thou/mm3 (0.0-0.5); Eosinophils % (Auto) 3 % (0-10); Hematocrit 31.1 % (41.0-53.0); Hemoglobin 10.3 g/dL (13.5-16.0); Immature Granulocytes Auto 0.00 Thou/mm3 (0.00-0.00); Lymphocytes # (Auto) 1.6 Thou/mm3 (1.0-4.8); Lymphocytes % (Auto) 60 % (10-50); Mean Corpuscular HGB Conc 33.1 g/dl (31.0-37.0); Mean Corpuscular Hemoglobin 28.5 pg (25.0-35.0); Mean Corpuscular Volume 86 fL (80-100); Monocytes # (Auto) 0.4 Thou/mm3 (0.0-0.8); Monocytes % (Auto) 16 % (0-12); Neutrophils # (Auto) 0.6 Thou/mm3 (1.8-7.7); Neutrophils % (Auto) 21 % (37-80); Nucleated Red Blood Cell # 0.00 Thou/mm3 (0.00-0.00); Nucleated Red Blood Cell % 0 /100 WBC (0); Platelet Count 258 Thou/mm3 (140-440); RDW Standard Deviation 54.5 fL (35.1-43.9); Red Blood Count 3.61 Miln/mm3 (4.50-5.90); White Blood Count 2.7 Thou/mm3 (3.8-10.6)
[2024-12-15 07:25] LABS: Alanine Aminotransferase 39 U/L (10-49); Albumin, Serum 4.3 gm/dL (3.5-5.0); Albumin/Globulin Ratio 2.3 (1.2-2.2); Alkaline Phosphatase 134 U/L (46-116); Anion Gap 11 (7-16); Aspartate Amino Transferase 46 U/L (0-34); BUN/Creatinine Ratio 8 Ratio (12-20); Bilirubin,Total 0.4 mg/dL (0.3-1.2); Blood Urea Nitrogen 7 mg/dL (9-23); Calcium 8.9 mg/dL (8.3-10.6); Calcium (Corrected) 8.9 mg/dL (8.5-10.1); Carbon Dioxide 22.9 mMol/L (20.0-31.0); Chloride 106 mMol/L (98-107); Creatinine (Component) 0.9 mg/dL (0.6-1.3); Estimated Creatinine Clearance 99.2 mL/min (>60); Globulin 1.9 gm/dL (2.3-3.5); Glucose 101 mg/dL (74-106); Magnesium 1.7 mg/dL (1.6-2.6); Osmolality,Calculated 277 (275-295); Phosphorous 4.3 mg/dL (2.4-5.1); Potassium 3.5 mMol/L (3.4-5.1); Sodium 140 mMol/L (136-145); Total Protein 6.2 gm/dL (5.7-8.2); eGFR > 60 See Note
--- NOTE | 2024-12-15 07:32 | PD.RESPRO ---
Documentation for date of: 12/15/24 Subjective Subjective Interval history: NAEO. Reports continued tremors, headache, improved blurry vision, anxiety. Able to tolerate minimal PO intake, no nausea or vomiting. Patient's mother was at bedside. Discussed the need for inpatient acute rehab directly after discharge from hospital due to EtOH disorder c/b withdrawal requiring repeated hospitalizations. Patient expressed understanding and a desire to quit drinking. He also expressed the understanding of needing to be in a controlled environment in order to appropriately manage alcohol cravings. Exam Vital Signs Temp Pulse Resp BP Pulse Ox O2 Del Method 97.3 F 56 L 15 112/59 L 98 Room Air 12/15/24 03:59 12/15/24 04:00 12/15/24 03:59 12/15/24 03:59 12/15/24 03:59 12/15/24 03:59 Narrative Exam General: Acute distress, lying in bed Eye: PERRL, EOMI, normal conjunctiva, no scleral icterus HENT: Normocephalic, atraumatic, normal hearing, moist oral mucosa. Neck: Supple, non-tender, no JVD, no lymphadenopathy Lungs: Clear to auscultation bilaterally, non-labored respirations, symmetric chest rise, no use of accessory muscles Heart: Normal S1 and S2, no S3 or S4 appreciated. Normal rate and regular rhythm, no murmurs, rubs gallops, or edema. Peripheral pulses intact bilaterally, capillary refill brisk distally Abdomen: Soft, non-tender, non-distended, normal bowel sounds. No guarding or rebound tenderness. Musculoskeletal: Normal range of motion and strength, no tenderness or swelling Skin: Skin is warm, dry, no rashes or lesions. Neurologic: Alert, awake and oriented x3. CN II-XII grossly intact. No focal neuro deficits. No signs of meningeal irritation noted. Tremors appreciated in outstretched arms Psychiatric: Cooperative, appropriate mood and affect CIWA: Nausea/vomitin Tremor: 6 Paroxysmal sweats: 0 Anxiety: 2 Agitation: 0 Tactile disturbance: 3 Auditory disturbance: 0 Visual disturbance: 2 Headache/fullness in head: 3 Orientation/clouding of sensorium: 0 Total: 18 Objective Labs 12/15/24 04:42 12/15/24 04:42 Labs: Laboratory Results - last 24 hr 12/14/24 12/15/24 05:27 04:42 WBC 2.7 L RBC 3.61 L Hgb 10.3 L Hct 31.1 L MCV 86 MCH 28.5 MCHC 33.1 RDW Std Deviation 54.5 H Plt Count 258 Neut % (Auto) 21 L Lymph % (Auto) 60 H [place] % (Auto) 16 H Eos % (Auto) 3 Baso % (Auto) 1 Neut # (Auto) 0.6 L Lymph # (Auto) 1.6 [place] # (Auto) 0.4 Eos # (Auto) 0.1 Baso # (Auto) 0.0 Immature Gran # (Auto) 0.00 Absolute Nucleated RBC 0.00 Immature Gran % 0 Nucleated RBC % 0 Sodium 140 Potassium 3.5 Chloride 106 Carbon Dioxide 22.9 Anion Gap 11 BUN 7 L Creatinine 0.9 Estim Creat Clear Calc 99.2 eGFR > 60 BUN/Creatinine Ratio 8 L Glucose 101 Calculated Osmolality 277 Calcium 8.9 Corrected Calcium 8.9 Phosphorus 4.3 Magnesium 1.7 Total Bilirubin 0.4 D AST 46 H ALT 39 Alkaline Phosphatase 134 H Troponin I < 0.002 Total Protein 6.2 Albumin 4.3 Globulin 1.9 L Albumin/Globulin Ratio 2.3 H Quality Measures Quality Measures none Assessment & Plan Assessment Current Active Medications: Generic Name Dose Route Start Last Admin Trade Name Freq PRN Reason Stop Dose Admin Acetaminophen 650 mg 12/13/24 16:39 12/14/24 04:06 Acetaminophen 325 Mg Tablet PO 01/12/25 16:38 650 mg Q6H PRN Administration Fever >100.3 Acetaminophen 650 mg 12/13/24 16:39 12/14/24 20:04 Acetaminophen 325 Mg Tablet PO 01/12/25 16:38 650 mg Q6H PRN Administration PAIN SCALE 1-3 (mild Buspirone HCl 7.5 mg 12/14/24 09:00 12/14/24 08:40 Buspirone Hcl 5 Mg Tablet PO 01/13/25 08:59 7.5 mg DAILY APOORVA Administration Chlordiazepoxide HCl 50 mg 12/13/24 17:00 12/15/24 05:15 Chlordiazepoxide Hcl 10 Mg Capsule PO 12/18/24 16:59 50 mg Q8HR APOORVA Administration Folic Acid 1 mg 12/13/24 21:00 12/14/24 20:04 Folic Acid 1 Mg Tablet PO 12/18/24 20:59 1 mg BID APOORVA Administration Heparin Sodium (Porcine) 5,000 unit 12/13/24 22:00 12/15/24 05:15 Heparin Sod Inj 5000 Unit/Ml Vial SC 12/27/24 21:59 5,000 unit Q8HR APOORVA Administration Lorazepam 0.5 mg 12/13/24 17:32 Lorazepam 0.5 Mg Tablet PO 12/18/24 16:45 Q4H PRN CIWA 2-6 Midazolam HCl 4 mg 12/13/24 17:32 12/14/24 20:05 Midazolam Inj 1 Mg/Ml Vial 2 Ml IVP 12/18/24 16:38 4 mg Q2H PRN Administration CIWA 12-20 Midazolam HCl 2 mg 12/13/24 17:32 Midazolam Inj 1 Mg/Ml Vial 2 Ml IVP 12/18/24 16:38 Q2H PRN CIWA 7-11 Ondansetron HCl 4 mg 12/13/24 16:39 Ondansetron Inj 2 Mg/Ml Inj 2 Ml IVP 01/12/25 16:38 Q6H PRN NAUSEA OR VOMITING Protocol Pantoprazole Sodium 40 mg 12/15/24 09:00 Pantoprazole 40 Mg Tablet PO 01/14/25 08:59 QDAY APOORVA Protocol Sennosides 1 tab 12/13/24 17:27 Senna/Docusate Sod 1 Tab Tablet PO 01/12/25 17:26 QDAY PRN CONSTIPATION Protocol Thiamine HCl 100 mg 12/13/24 21:00 12/14/24 20:04 Thiamine 100 Mg Tablet PO 12/18/24 20:59 100 mg BID APOORVA Administration Plan Mr. Ybarra is a 29 y/o male with PMH cirrhosis and esophageal varices 2/2 EtOH use disorder who presented to the ED 12/13 with generalized myalgia, sore throat, tremor, paresthesias, chest pain, neck pain and shortness of breath. Last drink 3 days ago, drank 40 oz beer. Admitted for alcohol withdrawal. #Acute Alcohol withdrawal #EtOH use disorder #Cirrhosis #Transaminitis - improved #Hx esophageal varices Initial presentation: tremors, N/V, paresthesias, neck pain, shortness of breath, headache AST 69, ALT 64, alk phos 177. No evidence of synthetic liver dysfunction. EtOH <3 CXR: unremarkable Received thiamine 500 mg IV x1 on admission Continuing to require PRN midazolam IV Given occasional globus sensation in throat/mouth, speech eval was completed. Good laryngeal function. Recommended f/u outpatient GI or ENT. No further ST services required at this time. Plan: - CIWA: - Aitvan 0.5 mg PO q4h CIWA 2-6 - Midazolam 2 mg IV q2h CIWA7-11 - Midazolam 4 mg IV q2h CIWA 12-20 - Librium 50 mg PO q8h - Thiamine 100 mg PO BID - Folic acid 1 mg PO BID - f/u outpatient GI or ENT if globus sensation continues - Will need alcohol rehab upon discharge #Chest pain - atypical Most likely tactile disturbance 2/2 alcohol withdrawal. ACS unlikely Troponin unremarkable, flu negative, COVID negative EKG NSR HR 83, QTc 426, possible sinus arrhythmia Repeat EKG showed sinus bradycardia HR 53, QTc 428 Plan: - See withdrawal plan as above #Elevated lactic acid - resolved LA 2.8 --> 1.1 --> 0.8 Adebrile, no leukocytosis Given 1L LR, Vanc/Zosyn in ED Plan: - CTM fever curve #Electrolyte disturbances #Hyponatremia - resolved #Hypochloremia - resolved Plan: - CTM with daily CMP #Hx soft tissue abscess anterior to C7 vertebral body - resolved Afebrile, no leukocytosis, procal unremarkable C spine MRI 12/13: negative for abscess, fracture, mass, disc herniation, cord impingement, cord signal abnormality or high grade neural foraminal stenosis Plan: - F/U outpatient with ENT if symptoms return #Depression Plan: - Buspar 7.5 mg daily (home med) Checklist Dispo: Continue CIWA Lines: PIV Diet: regular Bowel Reg: doc/senna PRN VTE ppx: heparin subQ GI ppx: pantoprazole 40 mg IV daily Pain mgmt: Tylenol PO PRN Code status: full Plan discussed with Dr. Anoop Prasad and Dr. Guillaume Galvan MD PGY1 Attending Provider Attestation/Addendum Andrés, Julianna Galaviz DO, attest that I was physically present for the louise portions of the service and evaluated the patient with the resident and I reviewed and discussed the case with the resident and agree with the resident's findings and plans of care as documented above Patient seen and evaluated this AM. He continues to have mild tremors, headaches and nausea. CIWA score of 16. Mother was at bedside. Counselled patient at length regarding discharge plan and cessation of alcohol. Mother states that she does not drive, but other household members do. Advised that patient be driven to an inpatient substance rehabilitation center when patient is discharged due to frequent readmissions. Patient apologized and understood that he needed to participate in rehab to stop drinking. Mother states that the patient's cousin had just on Tuesday due to alcoholic cirrhosis at a young age. Patient is fearful of the consequences of binge drinking. Will have social studies teacher provide patient with inpatient substance rehab options so that family can provide a plan to transport patient there on discharge. Will continue [facility] current management at this time. Will have physical therapy work with patient as well.
[2024-12-15] MEDS: ACETAMINOPHEN 325 MG TABLET 650 MG PO ×2 (09:38→15:41)
[2024-12-15] MEDS: PANTOPRAZOLE 40 MG TABLET PO (09:38)
[2024-12-15] MEDS: FOLIC ACID 1 MG TABLET PO ×2 (09:38→21:11)
[2024-12-15] MEDS: THIAMINE 100 MG TABLET PO ×2 (09:39→21:11)
[2024-12-15] MEDS: MIDAZOLAM INJ 1 MG/ML VIAL 2 ML 2 MG IVP ×2 (09:52→13:01)
[2024-12-15] MEDS: MIDAZOLAM INJ 1 MG/ML VIAL 2 ML 4 MG IVP ×2 (15:48→19:31)
--- NOTE | 2024-12-15 16:11 | PC.SS ---
Garcia Conklin is a 29 year-old male admitted to [facility] for Alcohol Withdrawal. SS conducted bedside contact with the pt to complete initial assessment. Pt is alert and oriented. Pt confirmed demographic information. Pt lives with his parents. Pt identifies his father Garcia Aden [phone] as his medical decision maker. Pt is independent with all ALDS, no DME needed. SS spoke to pt in regards to multiple admissions /t Alcohol W/D. Pt is receptive to inpatient treatment but wishes to have conversation with parents present, as they are interested in options. SS left [facility] pamphlet at bedside, [facility], and AA meeting for [facility]. SS informed pt to call nurses station for social science teacher when his parents are at bedside to have conversation in regards to inpatient treatment. SS will remain available for any additional needs or concerns.
[2024-12-15] MEDS: LIDOCAINE 5% 1 PATCH TOP (19:31)
[2024-12-16] VITALS: BP 102/72; PULSE 61; PULSE 62; RESP 18; TEMP 36.4; O2SAT 98
[2024-12-16 04:00] VITALS: BP 99/59; PULSE 58; PULSE 67; RESP 14; TEMP 36.8; O2SAT 97
[2024-12-16 05:09] VITALS: BMI 26.3
[2024-12-16] MEDS: HEPARIN SOD INJ 5000 UNIT/ML VIAL SC ×3 (05:22→21:28)
[2024-12-16 05:38] LABS: Basophils # (Auto) 0.0 Thou/mm3 (0.0-0.2); Basophils % (Auto) 1 % (0-2.5); Eosinophils # (Auto) 0.1 Thou/mm3 (0.0-0.5); Eosinophils % (Auto) 3 % (0-10); Hematocrit 31.1 % (41.0-53.0); Hemoglobin 10.5 g/dL (13.5-16.0); Immature Granulocytes Auto 0.00 Thou/mm3 (0.00-0.00); Lymphocytes # (Auto) 1.6 Thou/mm3 (1.0-4.8); Lymphocytes % (Auto) 39 % (10-50); Mean Corpuscular HGB Conc 33.8 g/dl (31.0-37.0); Mean Corpuscular Hemoglobin 28.8 pg (25.0-35.0); Mean Corpuscular Volume 85 fL (80-100); Monocytes # (Auto) 0.5 Thou/mm3 (0.0-0.8); Monocytes % (Auto) 11 % (0-12); Neutrophils # (Auto) 1.9 Thou/mm3 (1.8-7.7); Neutrophils % (Auto) 46 % (37-80); Nucleated Red Blood Cell # 0.00 Thou/mm3 (0.00-0.00); Platelet Count 240 Thou/mm3 (140-440); RDW Standard Deviation 53.8 fL (35.1-43.9); Red Blood Count 3.64 Miln/mm3 (4.50-5.90); White Blood Count 4.1 Thou/mm3 (3.8-10.6)
[2024-12-16 05:39] LABS: Nucleated Red Blood Cell % 0 /100 WBC (0)
[2024-12-16 06:12] LABS: Alanine Aminotransferase 56 U/L (10-49); Albumin, Serum 4.6 gm/dL (3.5-5.0); Albumin/Globulin Ratio 2.3 (1.2-2.2); Alkaline Phosphatase 147 U/L (46-116); Anion Gap 8 (7-16); Aspartate Amino Transferase 83 U/L (0-34); BUN/Creatinine Ratio 9 Ratio (12-20); Bilirubin,Total 0.4 mg/dL (0.3-1.2); Blood Urea Nitrogen 7 mg/dL (9-23); Calcium 9.4 mg/dL (8.3-10.6); Calcium (Corrected) 9.4 mg/dL (8.5-10.1); Carbon Dioxide 25.0 mMol/L (20.0-31.0); Chloride 106 mMol/L (98-107); Creatinine (Component) 0.8 mg/dL (0.6-1.3); Estimated Creatinine Clearance 111.6 mL/min (>60); Globulin 2.0 gm/dL (2.3-3.5); Glucose 96 mg/dL (74-106); Magnesium 1.6 mg/dL (1.6-2.6); Osmolality,Calculated 275 (275-295); Phosphorous 4.8 mg/dL (2.4-5.1); Potassium 3.4 mMol/L (3.4-5.1); Sodium 139 mMol/L (136-145); Total Protein 6.6 gm/dL (5.7-8.2); eGFR > 60 See Note
[2024-12-16] MEDS: MIDAZOLAM INJ 1 MG/ML VIAL 2 ML 2 MG IVP (06:31)
[2024-12-16 08:00] VITALS: BP 110/65; PULSE 67; RESP 13; TEMP 36.6; O2SAT 98
[2024-12-16] MEDS: THIAMINE 100 MG TABLET PO ×2 (09:09→20:05)
[2024-12-16] MEDS: FOLIC ACID 1 MG TABLET PO ×2 (09:09→20:04)
[2024-12-16] MEDS: PANTOPRAZOLE 40 MG TABLET PO (09:09)
[2024-12-16] MEDS: MIDAZOLAM INJ 1 MG/ML VIAL 2 ML 4 MG IVP ×4 (09:09→22:40)
--- NOTE | 2024-12-16 11:03 | PC.NURSE ---
Pt complaining of 10/10 back pain. States he tried the lidocaine patch twice and still has not had relief. Called Dr. Hawk and made aware. Awaiting new orders.
[2024-12-16 12:00] VITALS: BP 106/61; PULSE 65; RESP 16; TEMP 36.9; O2SAT 96
--- NOTE | 2024-12-16 13:49 | ESPR_ITS ---
Documentation for date of: 12/16/24 Subjective Subjective Interval history: Patient seen and examined at bedside. CIWA 10. Patient slightly hypotensive at 99/59 and bradycardic heart rate 58. Patient complaining of back pain, lidocaine patch and Flexeril ordered. Will wean Librium from 50mg to 25mg p.o. every 8 hours. Exam Vital Signs Temp Pulse Resp BP Pulse Ox O2 Del Method 98.4 F 65 16 106/61 96 Room Air 12/16/24 12:00 12/16/24 12:00 12/16/24 12:00 12/16/24 12:00 12/16/24 12:00 12/16/24 12:00 Narrative Exam General: Uncomfortable laying in bed. Awake and in no acute distress. Conversational and non-toxic appearing. Neurologic: GCS 15. Alert and oriented x3, no gross neurological deficit, and patient able to move all 4 extremities. HEENT: Normocephalic, atraumatic, mucous membranes moist. Pupils reactive to light. Heart: Bradycardic, normal S1 and S2, no murmurs. Lungs: Clear to auscultation bilaterally with no wheezing or crackles. Abdomen: Soft, nondistended, nontender, positive bowel sounds. No guarding or rebound tenderness. Extremities/MSK: Tremor with outstretched hands. Pain on palpation of the spine around the level of T12, pain on palpation of the paralumbar region on the right. No edema. 2+ radial and dorsalis pedis pulses bilaterally. Skin: Warm. Dry. No rash or ecchymoses. Objective Labs 12/16/24 05:02 12/16/24 05:02 Labs: Laboratory Results - last 24 hr 12/16/24 05:02 WBC 4.1 D RBC 3.64 L Hgb 10.5 L Hct 31.1 L MCV 85 MCH 28.8 MCHC 33.8 RDW Std Deviation 53.8 H Plt Count 240 Neut % (Auto) 46 Lymph % (Auto) 39 [place] % (Auto) 11 Eos % (Auto) 3 Baso % (Auto) 1 Neut # (Auto) 1.9 Lymph # (Auto) 1.6 [place] # (Auto) 0.5 Eos # (Auto) 0.1 Baso # (Auto) 0.0 Immature Gran # (Auto) 0.00 Absolute Nucleated RBC 0.00 Immature Gran % 0 Nucleated RBC % 0 Sodium 139 Potassium 3.4 Chloride 106 Carbon Dioxide 25.0 Anion Gap 8 BUN 7 L Creatinine 0.8 Estim Creat Clear Calc 111.6 eGFR > 60 BUN/Creatinine Ratio 9 L Glucose 96 Calculated Osmolality 275 Calcium 9.4 Corrected Calcium 9.4 Phosphorus 4.8 Magnesium 1.6 Total Bilirubin 0.4 AST 83 H ALT 56 H Alkaline Phosphatase 147 H Total Protein 6.6 Albumin 4.6 Globulin 2.0 L Albumin/Globulin Ratio 2.3 H Quality Measures Quality Measures none Assessment & Plan Assessment Current Active Medications: Generic Name Dose Route Start Last Admin Trade Name Freq PRN Reason Stop Dose Admin Acetaminophen 650 mg 12/13/24 16:39 12/15/24 09:38 Acetaminophen 325 Mg Tablet PO 01/12/25 16:38 650 mg Q6H PRN Administration Fever >100.3 Acetaminophen 650 mg 12/13/24 16:39 12/15/24 15:41 Acetaminophen 325 Mg Tablet PO 01/12/25 16:38 650 mg Q6H PRN Administration PAIN SCALE 1-3 (mild Buspirone HCl 7.5 mg 12/14/24 09:00 12/16/24 09:09 Buspirone Hcl 5 Mg Tablet PO 01/13/25 08:59 7.5 mg DAILY APOORVA Administration Chlordiazepoxide HCl 25 mg 12/16/24 14:00 Chlordiazepoxide Hcl 25 Mg Capsule PO 12/21/24 13:59 Q8HR APOORVA Cyclobenzaprine HCl 5 mg 12/16/24 12:35 12/16/24 12:51 Cyclobenzaprine 5 Mg Tablet PO 01/15/25 12:34 5 mg TID PRN Administration MUSCLE SPASMS Folic Acid 1 mg 12/13/24 21:00 12/16/24 09:09 Folic Acid 1 Mg Tablet PO 12/18/24 20:59 1 mg BID APOORVA Administration Heparin Sodium (Porcine) 5,000 unit 12/13/24 22:00 12/16/24 05:22 Heparin Sod Inj 5000 Unit/Ml Vial SC 12/27/24 21:59 5,000 unit Q8HR APOORVA Administration Lorazepam 0.5 mg 12/13/24 17:32 12/15/24 09:38 Lorazepam 0.5 Mg Tablet PO 12/18/24 16:45 0.5 mg Q4H PRN Administration CIWA 2-6 Midazolam HCl 4 mg 12/13/24 17:32 12/16/24 12:51 Midazolam Inj 1 Mg/Ml Vial 2 Ml IVP 12/18/24 16:38 4 mg Q2H PRN Administration CIWA 12-20 Midazolam HCl 2 mg 12/13/24 17:32 12/16/24 06:31 Midazolam Inj 1 Mg/Ml Vial 2 Ml IVP 12/18/24 16:38 2 mg Q2H PRN Administration CIWA 7-11 Ondansetron HCl 4 mg 12/13/24 16:39 Ondansetron Inj 2 Mg/Ml Inj 2 Ml IVP 01/12/25 16:38 Q6H PRN NAUSEA OR VOMITING Protocol Pantoprazole Sodium 40 mg 12/15/24 09:00 12/16/24 09:09 Pantoprazole 40 Mg Tablet PO 01/14/25 08:59 40 mg QDAY APOORVA Administration Protocol Sennosides 1 tab 12/13/24 17:27 Senna/Docusate Sod 1 Tab Tablet PO 01/12/25 17:26 QDAY PRN CONSTIPATION Protocol Thiamine HCl 100 mg 12/13/24 21:00 12/16/24 09:09 Thiamine 100 Mg Tablet PO 12/18/24 20:59 100 mg BID APOORVA Administration Plan Summary: Mr. Ybarra is a 29 y/o male with PMH cirrhosis and esophageal varices 2/2 EtOH use disorder who presented to the ED 12/13 with generalized myalgia, sore throat, tremor, paresthesias, chest pain, neck pain and shortness of breath. Last drink 3 days ago, drank 40 oz beer. Admitted for alcohol withdrawal. #Acute Alcohol withdrawal #EtOH use disorder #Cirrhosis #Transaminitis - improved #Hx esophageal varices Initial presentation: tremors, N/V, paresthesias, neck pain, shortness of breath, headache AST 69, ALT 64, alk phos 177. No evidence of synthetic liver dysfunction. EtOH <3 CXR: unremarkable Received thiamine 500 mg IV x1 on admission Continuing to require PRN midazolam IV Given occasional globus sensation in throat/mouth, speech eval was completed. Good laryngeal function. Recommended f/u outpatient GI or ENT. No further ST services required at this time. AST ALT up-trended slightly Plan: - CIWA: - Aitvan 0.5 mg PO q4h CIWA 2-6 - Midazolam 2 mg IV q2h CIWA7-11 - Midazolam 4 mg IV q2h CIWA 12-20 - Librium 50 mg PO q8h, changed to 25 mg on 12/16/2024 - Thiamine 100 mg PO BID - Folic acid 1 mg PO BID - f/u outpatient GI or ENT if globus sensation continues - Will need alcohol rehab upon discharge #Chest pain - atypical Most likely tactile disturbance 2/2 alcohol withdrawal. ACS unlikely Troponin unremarkable, flu negative, COVID negative EKG NSR HR 83, QTc 426, possible sinus arrhythmia Repeat EKG showed sinus bradycardia HR 53, QTc 428 Plan: - See withdrawal plan as above #Elevated lactic acid - resolved LA 2.8 --> 1.1 --> 0.8 Adebrile, no leukocytosis Given 1L LR, Vanc/Zosyn in ED Plan: - CTM fever curve #Electrolyte disturbances #Hyponatremia - resolved #Hypochloremia - resolved Plan: - CTM with daily CMP #Hx soft tissue abscess anterior to C7 vertebral body - resolved Afebrile, no leukocytosis, procal unremarkable C spine MRI 12/13: negative for abscess, fracture, mass, disc herniation, cord impingement, cord signal abnormality or high grade neural foraminal stenosis Plan: - F/U outpatient with ENT if symptoms return #Depression Plan: - Buspar 7.5 mg daily (home med) Checklist Dispo: Continuing CIWA protocol, patient having muscle spasms in his back, Flexeril 5 mg p.o. twice daily as needed ordered. Lines: PIV Diet: regular Bowel Reg: doc/senna PRN VTE ppx: heparin subQ GI ppx: pantoprazole 40 mg IV daily Pain mgmt: Tylenol PO PRN Code status: full Patient was seen and discussed with my attending physician Dr. Guillaume GONZALEZ. Russ Hawk DO PGY-1. Attending Provider Attestation/Addendum I, Julianna Galaviz DO, attest that I was physically present for the louise portions of the service and evaluated the patient with the resident and I reviewed and discussed the case with the resident and agree with the resident's findings and plans of care as documented above Patient seen and evaluated this AM. Patient states he has more pain today around his T12 region. However, he states that the pain radiates from his head down his spine, as he had on previous admissions. Patient has had CTs and MRIs of his spine that have been negative. There are no structural abnormalities noted. He has pain on palpation of the spinous process of T12, but patient also reports paraspinal pain. Suspect musculoskeletal pain. He remains diaphoretic, and is more anxious today. CIWA score is 18 today. Will continue with CIWA protocol
[2024-12-16 16:00] VITALS: BP 107/77; PULSE 74; PULSE 77; RESP 18; TEMP 36.9; O2SAT 97
[2024-12-16 20:00] VITALS: BP 113/65; PULSE 86; RESP 18; TEMP 36.9; O2SAT 97
[2024-12-17] VITALS (7 sets, daily range): BP systolic 107–122; BP diastolic 64–81; PULSE 63–108; RESP 13–20; TEMP 36.3–36.9; O2SAT 95–98; BMI 26.2; BMI 26.3
[2024-12-17] MEDS: HEPARIN SOD INJ 5000 UNIT/ML VIAL SC ×3 (05:37→21:31)
[2024-12-17] MEDS: Magnesium Sulfate 4 GM Ivpb 4 GM/50 ML BAG IV (08:38)
[2024-12-17] MEDS: PANTOPRAZOLE 40 MG TABLET PO (08:39)
[2024-12-17] MEDS: THIAMINE 100 MG TABLET PO ×2 (08:39→20:36)
[2024-12-17] MEDS: FOLIC ACID 1 MG TABLET PO ×2 (08:39→20:36)
[2024-12-17] MEDS: MIDAZOLAM INJ 1 MG/ML VIAL 2 ML 4 MG IVP ×3 (10:05→18:10)
[2024-12-17 11:15] LABS: Basophils # (Auto) 0.0 Thou/mm3 (0.0-0.2); Basophils % (Auto) 1 % (0-2.5); Eosinophils # (Auto) 0.1 Thou/mm3 (0.0-0.5); Eosinophils % (Auto) 3 % (0-10); Hematocrit 31.8 % (41.0-53.0); Hemoglobin 10.7 g/dL (13.5-16.0); Immature Granulocytes Auto 0.01 Thou/mm3 (0.00-0.00); Lymphocytes # (Auto) 1.1 Thou/mm3 (1.0-4.8); Lymphocytes % (Auto) 29 % (10-50); Mean Corpuscular HGB Conc 33.6 g/dl (31.0-37.0); Mean Corpuscular Hemoglobin 28.9 pg (25.0-35.0); Mean Corpuscular Volume 86 fL (80-100); Monocytes # (Auto) 0.3 Thou/mm3 (0.0-0.8); Monocytes % (Auto) 9 % (0-12); Neutrophils # (Auto) 2.2 Thou/mm3 (1.8-7.7); Neutrophils % (Auto) 58 % (37-80); Nucleated Red Blood Cell # 0.00 Thou/mm3 (0.00-0.00); Nucleated Red Blood Cell % 0 /100 WBC (0); Platelet Count 260 Thou/mm3 (140-440); RDW Standard Deviation 54.0 fL (35.1-43.9); Red Blood Count 3.70 Miln/mm3 (4.50-5.90); White Blood Count 3.8 Thou/mm3 (3.8-10.6)
[2024-12-17 11:39] LABS: Alanine Aminotransferase 73 U/L (10-49); Albumin, Serum 4.7 gm/dL (3.5-5.0); Albumin/Globulin Ratio 2.0 (1.2-2.2); Alkaline Phosphatase 155 U/L (46-116); Anion Gap 7 (7-16); Aspartate Amino Transferase 72 U/L (0-34); BUN/Creatinine Ratio 8 Ratio (12-20); Bilirubin,Total 0.3 mg/dL (0.3-1.2); Blood Urea Nitrogen 6 mg/dL (9-23); Calcium 9.4 mg/dL (8.3-10.6); Calcium (Corrected) 9.4 mg/dL (8.5-10.1); Carbon Dioxide 26.7 mMol/L (20.0-31.0); Chloride 105 mMol/L (98-107); Creatinine (Component) 0.8 mg/dL (0.6-1.3); Estimated Creatinine Clearance 111.6 mL/min (>60); Globulin 2.3 gm/dL (2.3-3.5); Glucose 107 mg/dL (74-106); Osmolality,Calculated 275 (275-295); Potassium 4.2 mMol/L (3.4-5.1); Sodium 139 mMol/L (136-145); Total Protein 7.0 gm/dL (5.7-8.2); eGFR > 60 See Note
--- NOTE | 2024-12-17 11:56 | PC.SS ---
Follow up note; SS met with patient and parents at bedside with machine try out setter present. SS discussed in patient rehab options. SS spoke to patient prior to parents arrival. Patient verbalized he experiences anxiety when talking to people. He expressed that he still had pain in his back. He was more open to in patient rehab. [facility] information and [facility] were provided to patient. SS updated both patient and parents that [facility] is only for mental health treatment. However, [facility] is an option. Patient will need to contact [facility] for an assessment. Once assessment is completed they can place patient in either [facility] or [facility]. Insurance covered. Parents understood. Patient will dc from hospital and return home with parents and follow up with his assessment for in patient residential treatment.
--- NOTE | 2024-12-17 16:16 | ESPR_ITS ---
<Statement entered by Ann-Marie Prasad MD - 12/17/24 16:33> Patient seen at bedside in early hours patient CIWA was reported to be 21 however this morning patient CIWA is approximately 10-11. Patient's endorses to improvement in the visual hallucinations. Patient has agreed to check into [facility] once stabilized and discharged from home. PT saw him yesterday and he was able to walk independently. Patient is still requiring significant Versed as per protocol. Patient was seen and examined by me personally. I have directly supervised and reviewed documentation by the team resident and agree with its findings. ------- Plan of care was discussed with the attending, Dr. Guillaume Prasad, PGY-2 Documentation for date of: 12/17/24 Subjective Subjective Interval history: Patient seen and examined at bedside. CIWA 10, continuing protocol. In the process of arranging outpatient alcohol rehab. Exam Vital Signs Temp Pulse Resp BP Pulse Ox O2 Del Method 97.3 F 77 16 119/73 95 Room Air 12/17/24 16:00 12/17/24 16:00 12/17/24 16:00 12/17/24 16:00 12/17/24 16:00 12/17/24 16:00 Narrative Exam General: Laying in bed. Awake and in no acute distress. Conversational and non- toxic appearing. Neurologic: GCS 15. Alert and oriented x3, no gross neurological deficit, and patient able to move all 4 extremities. HEENT: Normocephalic, atraumatic, mucous membranes moist. Pupils reactive to light. Heart: Regular rate and rhythm, normal S1 and S2, no murmurs. Lungs: Clear to auscultation bilaterally with no wheezing or crackles. Abdomen: Soft, nondistended, nontender, positive bowel sounds. No guarding or rebound tenderness. Extremities/MSK: Tremor with outstretched hands. No edema. 2+ radial and dorsalis pedis pulses bilaterally. Skin: Warm. Dry. No rash or ecchymoses. Objective Labs 12/18/24 09:18 12/18/24 09:18 Labs: Laboratory Results - last 24 hr 12/17/24 11:00 WBC 3.8 RBC 3.70 L Hgb 10.7 L Hct 31.8 L MCV 86 MCH 28.9 MCHC 33.6 RDW Std Deviation 54.0 H Plt Count 260 Neut % (Auto) 58 Lymph % (Auto) 29 [place] % (Auto) 9 Eos % (Auto) 3 Baso % (Auto) 1 Neut # (Auto) 2.2 Lymph # (Auto) 1.1 [place] # (Auto) 0.3 Eos # (Auto) 0.1 Baso # (Auto) 0.0 Immature Gran # (Auto) 0.01 H Absolute Nucleated RBC 0.00 Immature Gran % 0 Nucleated RBC % 0 Sodium 139 Potassium 4.2 D Chloride 105 Carbon Dioxide 26.7 Anion Gap 7 BUN 6 L Creatinine 0.8 Estim Creat Clear Calc 111.6 eGFR > 60 BUN/Creatinine Ratio 8 L Glucose 107 H Calculated Osmolality 275 Calcium 9.4 Corrected Calcium 9.4 Total Bilirubin 0.3 AST 72 H ALT 73 H Alkaline Phosphatase 155 H Total Protein 7.0 Albumin 4.7 Globulin 2.3 Albumin/Globulin Ratio 2.0 Quality Measures Quality Measures none Assessment & Plan Assessment Current Active Medications: Generic Name Dose Route Start Last Admin Trade Name Freq PRN Reason Stop Dose Admin Acetaminophen 650 mg 12/13/24 16:39 12/15/24 09:38 Acetaminophen 325 Mg Tablet PO 01/12/25 16:38 650 mg Q6H PRN Administration Fever >100.3 Acetaminophen 650 mg 12/13/24 16:39 12/15/24 15:41 Acetaminophen 325 Mg Tablet PO 01/12/25 16:38 650 mg Q6H PRN Administration PAIN SCALE 1-3 (mild Buspirone HCl 7.5 mg 12/14/24 09:00 12/17/24 08:39 Buspirone Hcl 5 Mg Tablet PO 01/13/25 08:59 7.5 mg DAILY APOORVA Administration Chlordiazepoxide HCl 25 mg 12/16/24 14:00 12/17/24 13:43 Chlordiazepoxide Hcl 25 Mg Capsule PO 12/21/24 13:59 25 mg Q8HR APOORVA Administration Cyclobenzaprine HCl 5 mg 12/16/24 12:35 12/17/24 08:38 Cyclobenzaprine 5 Mg Tablet PO 01/15/25 12:34 5 mg TID PRN Administration MUSCLE SPASMS Folic Acid 1 mg 12/13/24 21:00 12/17/24 08:39 Folic Acid 1 Mg Tablet PO 12/18/24 20:59 1 mg BID APOORVA Administration Heparin Sodium (Porcine) 5,000 unit 12/13/24 22:00 12/17/24 13:43 Heparin Sod Inj 5000 Unit/Ml Vial SC 12/27/24 21:59 5,000 unit Q8HR APOORVA Administration Lorazepam 0.5 mg 12/13/24 17:32 12/15/24 09:38 Lorazepam 0.5 Mg Tablet PO 12/21/24 18:47 0.5 mg Q4H PRN Administration CIWA 2-6 Midazolam HCl 4 mg 12/13/24 17:32 12/17/24 13:55 Midazolam Inj 1 Mg/Ml Vial 2 Ml IVP 12/21/24 18:47 4 mg Q2H PRN Administration CIWA 12-20 Midazolam HCl 2 mg 12/13/24 17:32 12/16/24 06:31 Midazolam Inj 1 Mg/Ml Vial 2 Ml IVP 12/21/24 18:47 2 mg Q2H PRN Administration [facility] 7-11 Ondansetron HCl 4 mg 12/13/24 16:39 Ondansetron Inj 2 Mg/Ml Inj 2 Ml IVP 01/12/25 16:38 Q6H PRN NAUSEA OR VOMITING Protocol Pantoprazole Sodium 40 mg 12/15/24 09:00 12/17/24 08:39 Pantoprazole 40 Mg Tablet PO 01/14/25 08:59 40 mg QDAY APOORVA Administration Protocol Sennosides 1 tab 12/13/24 17:27 Senna/Docusate Sod 1 Tab Tablet PO 01/12/25 17:26 QDAY PRN CONSTIPATION Protocol Thiamine HCl 100 mg 12/13/24 21:00 12/17/24 08:39 Thiamine 100 Mg Tablet PO 12/18/24 20:59 100 mg BID APOORVA Administration Plan Summary: Mr. Ybarra is a 29 y/o male with PMH cirrhosis and esophageal varices 2/2 EtOH use disorder who presented to the ED 12/13 with generalized myalgia, sore throat, tremor, paresthesias, chest pain, neck pain and shortness of breath. Last drink 3 days ago, drank 40 oz beer. Admitted for alcohol withdrawal. #Acute Alcohol withdrawal #EtOH use disorder #Cirrhosis #Transaminitis - improved #Hx esophageal varices Initial presentation: tremors, N/V, paresthesias, neck pain, shortness of breath, headache AST 69, ALT 64, alk phos 177. No evidence of synthetic liver dysfunction. EtOH <3 CXR: unremarkable Received thiamine 500 mg IV x1 on admission Continuing to require PRN midazolam IV Given occasional globus sensation in throat/mouth, speech eval was completed. Good laryngeal function. Recommended f/u outpatient GI or ENT. No further ST services required at this time. AST ALT elevated and stable Plan: - CIWA: - Aitvan 0.5 mg PO q4h CIWA 2-6 - Midazolam 2 mg IV q2h CIWA7-11 - Midazolam 4 mg IV q2h CIWA 12-20 - Librium 50 mg PO q8h, changed to 25 mg on 12/16/2024 - Thiamine 100 mg PO BID - Folic acid 1 mg PO BID - f/u outpatient GI or ENT if globus sensation continues - Will need alcohol rehab upon discharge #Chest pain - atypical Most likely tactile disturbance 2/2 alcohol withdrawal. ACS unlikely Troponin unremarkable, flu negative, COVID negative EKG NSR HR 83, QTc 426, possible sinus arrhythmia Repeat EKG showed sinus bradycardia HR 53, QTc 428 Plan: - See withdrawal plan as above #Elevated lactic acid - resolved LA 2.8 --> 1.1 --> 0.8 Adebrile, no leukocytosis Given 1L LR, Vanc/Zosyn in ED Plan: - CTM fever curve #Electrolyte disturbances #Hyponatremia - resolved #Hypochloremia - resolved Plan: - CTM with daily CMP #Hx soft tissue abscess anterior to C7 vertebral body - resolved Afebrile, no leukocytosis, procal unremarkable C spine MRI 12/13: negative for abscess, fracture, mass, disc herniation, cord impingement, cord signal abnormality or high grade neural foraminal stenosis Plan: - F/U outpatient with ENT if symptoms return #Depression Plan: - Buspar 7.5 mg daily (home med) Checklist Dispo: Continuing CIWA protocol. Lines: PIV Diet: regular Bowel Reg: doc/senna PRN VTE ppx: heparin subQ GI ppx: pantoprazole 40 mg IV daily Pain mgmt: Tylenol PO PRN Code status: full Patient was seen and discussed with my attending physician Dr. Guillaume GONZALEZ and my senior resident Dr. Osmar LAW PGY-2. Russ Hawk DO PGY-1. Attending Provider Attestation/Addendum I, Julianna Galaviz DO, attest that I was physically present for the louise portions of the service and evaluated the patient with the resident and I reviewed and discussed the case with the resident and agree with the resident's findings and plans of care as documented above Patient seen and eval this a.m. He is able to ambulate to the bathroom. He reports that his back pain is greatly improved after having received Flexeril yesterday. He continues to have mild tremors, headache and hearing static. He states that he was really agitated overnight and wanted to rip off his leads. His CIWA score earlier in the morning was 21. He still required Versed pushes. Will continue with current management and continue to monitor closely. CIWA score of 10 at time of evaluation. special services coordinator has met with patient's parents and patient. They have been provided resources for inpatient substance rehabilitation. Patient or parents will have to call to be evaluated for rehab. Strongly advised patient to call while inpatient so that he has a concrete plan upon discharge.
[2024-12-17] MEDS: ACETAMINOPHEN 325 MG TABLET 650 MG PO (21:31)
[2024-12-18] VITALS: BP 116/70; PULSE 70; PULSE 74; RESP 17; TEMP 36.4; O2SAT 96
[2024-12-18 04:00] VITALS: BP 99/60; PULSE 69; PULSE 78; RESP 12; TEMP 36.6; O2SAT 99
[2024-12-18 04:50] VITALS: BMI 26.6
[2024-12-18] MEDS: HEPARIN SOD INJ 5000 UNIT/ML VIAL SC ×3 (06:12→22:10)
[2024-12-18 08:00] VITALS: BP 106/58; PULSE 75; PULSE 86; RESP 24; TEMP 36.5; O2SAT 99
[2024-12-18] MEDS: FOLIC ACID 1 MG TABLET PO (08:22)
[2024-12-18] MEDS: PANTOPRAZOLE 40 MG TABLET PO (08:22)
[2024-12-18] MEDS: THIAMINE 100 MG TABLET PO (08:22)
[2024-12-18] MEDS: MIDAZOLAM INJ 1 MG/ML VIAL 2 ML 4 MG IVP ×2 (09:22→12:21)
[2024-12-18 10:01] LABS: Alanine Aminotransferase 71 U/L (10-49); Albumin, Serum 4.9 gm/dL (3.5-5.0); Albumin/Globulin Ratio 2.3 (1.2-2.2); Alkaline Phosphatase 165 U/L (46-116); Anion Gap 9 (7-16); Aspartate Amino Transferase 73 U/L (0-34); BUN/Creatinine Ratio 6 Ratio (12-20); Bilirubin,Total 0.3 mg/dL (0.3-1.2); Blood Urea Nitrogen 5 mg/dL (9-23); Calcium 9.1 mg/dL (8.3-10.6); Calcium (Corrected) 9.1 mg/dL (8.5-10.1); Carbon Dioxide 25.9 mMol/L (20.0-31.0); Chloride 106 mMol/L (98-107); Creatinine (Component) 0.9 mg/dL (0.6-1.3); Estimated Creatinine Clearance 104.7 mL/min (>60); Globulin 2.1 gm/dL (2.3-3.5); Glucose 91 mg/dL (74-106); Magnesium 1.6 mg/dL (1.6-2.6); Osmolality,Calculated 278 (275-295); Phosphorous 2.5 mg/dL (2.4-5.1); Potassium 4.1 mMol/L (3.4-5.1); Sodium 141 mMol/L (136-145); Total Protein 7.0 gm/dL (5.7-8.2); eGFR > 60 See Note
[2024-12-18 10:12] LABS: Basophils # (Auto) 0.0 Thou/mm3 (0.0-0.2); Basophils % (Auto) 1 % (0-2.5); Eosinophils # (Auto) 0.2 Thou/mm3 (0.0-0.5); Eosinophils % (Auto) 5 % (0-10); Hematocrit 31.4 % (41.0-53.0); Hemoglobin 10.2 g/dL (13.5-16.0); Immature Granulocytes Auto 0.01 Thou/mm3 (0.00-0.00); Lymphocytes # (Auto) 1.2 Thou/mm3 (1.0-4.8); Lymphocytes % (Auto) 30 % (10-50); Mean Corpuscular HGB Conc 32.5 g/dl (31.0-37.0); Mean Corpuscular Hemoglobin 28.6 pg (25.0-35.0); Mean Corpuscular Volume 88 fL (80-100); Monocytes # (Auto) 0.5 Thou/mm3 (0.0-0.8); Monocytes % (Auto) 11 % (0-12); Neutrophils # (Auto) 2.1 Thou/mm3 (1.8-7.7); Neutrophils % (Auto) 52 % (37-80); Nucleated Red Blood Cell # 0.00 Thou/mm3 (0.00-0.00); Nucleated Red Blood Cell % 0 /100 WBC (0); Platelet Count 250 Thou/mm3 (140-440); RDW Standard Deviation 55.5 fL (35.1-43.9); Red Blood Count 3.57 Miln/mm3 (4.50-5.90); White Blood Count 4.0 Thou/mm3 (3.8-10.6)
--- NOTE | 2024-12-18 10:35 | ESPR_ITS ---
<Statement entered by Ann-Marie Prasad MD - 12/18/24 16:32> Overnight pts CIWA was between 31-22. Pt is seen at bedside, current CIWA remained between 8-10 most of the day. Pt endorses to visual hallucination overnight states he was seeing worms crawling up his skin. Pt currently has auditory hallucinations and increased anxiety. along with CIWA protocol with IV meds, Lorazepam 1mg oral is added for anxiety and Benadryl for insomnia. Patient was seen and examined by me personally. I have directly supervised and reviewed documentation by the team resident and agree with its findings. ------- Plan of care was discussed with the attending, Dr. Libia Prasad, PGY-2 Documentation for date of: 12/18/24 Subjective Subjective Interval history: NAEO. CIWA ranges 3-33, worse overnight. Continues to report visual and tactile hallucinations and anxiety/restlessness. Social arranging outpatient alcohol rehab. Exam Vital Signs Temp Pulse Resp BP Pulse Ox O2 Del Method 97.7 F 75 24 H 106/58 L 99 Room Air 12/18/24 08:00 12/18/24 08:00 12/18/24 08:00 12/18/24 08:00 12/18/24 08:00 12/18/24 08:00 Narrative Exam General: Acute distress, lying in bed Eye: PERRL, EOMI, normal conjunctiva, no scleral icterus HENT: Normocephalic, atraumatic, normal hearing, moist oral mucosa. Neck: Supple, non-tender, no JVD, no lymphadenopathy Lungs: Clear to auscultation bilaterally, non-labored respirations, symmetric chest rise, no use of accessory muscles Heart: Normal S1 and S2, no S3 or S4 appreciated. Normal rate and regular rhythm, no murmurs, rubs gallops, or edema. Peripheral pulses intact bilaterally, capillary refill brisk distally Abdomen: Soft, non-tender, non-distended, normal bowel sounds. No guarding or rebound tenderness. Musculoskeletal: Normal range of motion and strength, no tenderness or swelling Skin: Skin is warm, dry, no rashes or lesions. Neurologic: Alert, awake and oriented x3. CN II-XII grossly intact. No focal neuro deficits. No signs of meningeal irritation noted. Tremors appreciated in outstretched arms Psychiatric: Cooperative, appropriate mood and affect CIWA: Nausea/vomitin Tremor: 4 Paroxysmal sweats: 0 Anxiety: 3 Agitation: 0 Tactile disturbance: 3 Auditory disturbance: 0 Visual disturbance: 2 Headache/fullness in head: 3 Orientation/clouding of sensorium: 0 Total: 15 Objective Labs 12/19/24 05:03 12/19/24 05:03 Labs: Laboratory Results - last 24 hr 12/17/24 12/18/24 11:00 09:18 WBC 3.8 4.0 RBC 3.70 L 3.57 L Hgb 10.7 L 10.2 L Hct 31.8 L 31.4 L MCV 86 88 MCH 28.9 28.6 MCHC 33.6 32.5 RDW Std Deviation 54.0 H 55.5 H Plt Count 260 250 Neut % (Auto) 58 52 Lymph % (Auto) 29 30 [place] % (Auto) 9 11 Eos % (Auto) 3 5 Baso % (Auto) 1 1 Neut # (Auto) 2.2 2.1 Lymph # (Auto) 1.1 1.2 [place] # (Auto) 0.3 0.5 Eos # (Auto) 0.1 0.2 Baso # (Auto) 0.0 0.0 Immature Gran # (Auto) 0.01 H 0.01 H Absolute Nucleated RBC 0.00 0.00 Immature Gran % 0 0 Nucleated RBC % 0 0 Sodium 139 141 Potassium 4.2 D 4.1 Chloride 105 106 Carbon Dioxide 26.7 25.9 Anion Gap 7 9 BUN 6 L 5 L Creatinine 0.8 0.9 Estim Creat Clear Calc 111.6 104.7 eGFR > 60 > 60 BUN/Creatinine Ratio 8 L 6 L Glucose 107 H 91 Calculated Osmolality 275 278 Calcium 9.4 9.1 Corrected Calcium 9.4 9.1 Phosphorus 2.5 Magnesium 1.6 Total Bilirubin 0.3 0.3 AST 72 H 73 H ALT 73 H 71 H Alkaline Phosphatase 155 H 165 H Total Protein 7.0 7.0 Albumin 4.7 4.9 Globulin 2.3 2.1 L Albumin/Globulin Ratio 2.0 2.3 H Quality Measures Quality Measures none Assessment & Plan Assessment Current Active Medications: Generic Name Dose Route Start Last Admin Trade Name Freq PRN Reason Stop Dose Admin Acetaminophen 650 mg 12/13/24 16:39 12/15/24 09:38 Acetaminophen 325 Mg Tablet PO 12/06/25 16:38 650 mg Q6H PRN Administration Fever >100.3 Acetaminophen 650 mg 12/13/24 16:39 12/17/24 21:31 Acetaminophen 325 Mg Tablet PO 01/12/25 16:38 650 mg Q6H PRN Administration PAIN SCALE 1-3 (mild Buspirone HCl 7.5 mg 12/14/24 09:00 12/18/24 08:22 Buspirone Hcl 5 Mg Tablet PO 01/13/25 08:59 7.5 mg DAILY APOORVA Administration Chlordiazepoxide HCl 25 mg 12/18/24 21:00 Chlordiazepoxide Hcl 25 Mg Capsule PO 12/23/24 20:59 BID APOORVA Cyclobenzaprine HCl 5 mg 12/16/24 12:35 12/18/24 08:27 Cyclobenzaprine 5 Mg Tablet PO 01/15/25 12:34 5 mg TID PRN Administration MUSCLE SPASMS Folic Acid 1 mg 12/13/24 21:00 12/18/24 08:22 Folic Acid 1 Mg Tablet PO 12/18/24 20:59 1 mg BID APOORVA Administration Heparin Sodium (Porcine) 5,000 unit 12/13/24 22:00 12/18/24 06:12 Heparin Sod Inj 5000 Unit/Ml Vial SC 12/27/24 21:59 5,000 unit Q8HR APOORVA Administration Lorazepam 0.5 mg 12/13/24 17:32 12/18/24 10:25 Lorazepam 0.5 Mg Tablet PO 12/21/24 18:47 0.5 mg Q4H PRN Administration CIWA 2-6 Midazolam HCl 4 mg 12/13/24 17:32 12/18/24 09:22 Midazolam Inj 1 Mg/Ml Vial 2 Ml IVP 12/21/24 18:47 4 mg Q2H PRN Administration CIWA 12-20 Midazolam HCl 2 mg 12/13/24 17:32 12/16/24 06:31 Midazolam Inj 1 Mg/Ml Vial 2 Ml IVP 12/21/24 18:47 2 mg Q2H PRN Administration CIWA 7-11 Ondansetron HCl 4 mg 12/13/24 16:39 Ondansetron Inj 2 Mg/Ml Inj 2 Ml IVP 01/12/25 16:38 Q6H PRN NAUSEA OR VOMITING Protocol Pantoprazole Sodium 40 mg 12/15/24 09:00 12/18/24 08:22 Pantoprazole 40 Mg Tablet PO 01/14/25 08:59 40 mg QDAY APOORVA Administration Protocol Sennosides 1 tab 12/13/24 17:27 Senna/Docusate Sod 1 Tab Tablet PO 01/12/25 17:26 QDAY PRN CONSTIPATION Protocol Thiamine HCl 100 mg 12/13/24 21:00 12/18/24 08:22 Thiamine 100 Mg Tablet PO 12/18/24 20:59 100 mg BID APOORVA Administration Plan Mr. Ybarra is a 29 y/o male with PMH cirrhosis and esophageal varices 2/2 EtOH use disorder who presented to the ED 12/13 with generalized myalgia, sore throat, tremor, paresthesias, chest pain, neck pain and shortness of breath. Last drink 3 days ago, drank 40 oz beer. Admitted for alcohol withdrawal. #Acute Alcohol withdrawal #EtOH use disorder #Cirrhosis #Transaminitis - improved #Hx esophageal varices Initial presentation: tremors, N/V, paresthesias, neck pain, shortness of breath, headache AST 69, ALT 64, alk phos 177. No evidence of synthetic liver dysfunction. EtOH <3 CXR: unremarkable Received thiamine 500 mg IV x1 on admission Continuing to require PRN midazolam IV Given occasional globus sensation in throat/mouth, speech eval was completed. Good laryngeal function. Recommended f/u outpatient GI or ENT. No further ST services required at this time. AST ALT elevated and stable Plan: - CIWA: - Aitvan 0.5 mg PO q4h CIWA 2-6 - Midazolam 2 mg IV q2h CIWA7-11 - Midazolam 4 mg IV q2h CIWA 12-20 - Librium 25 mg PO BID - Ativan 1 mg PO q4h PRN anxiety - Thiamine 100 mg PO BID - Folic acid 1 mg PO BID - f/u outpatient GI or ENT if globus sensation continues - Will need alcohol rehab upon discharge #Chest pain - atypical Most likely tactile disturbance 2/2 alcohol withdrawal. ACS unlikely Troponin unremarkable, flu negative, COVID negative EKG NSR HR 83, QTc 426, possible sinus arrhythmia Repeat EKG showed sinus bradycardia HR 53, QTc 428 Plan: - See withdrawal plan as above #Elevated lactic acid - resolved LA 2.8 --> 1.1 --> 0.8 Adebrile, no leukocytosis Given 1L LR, Vanc/Zosyn in ED Plan: - CTM fever curve #Electrolyte disturbances #Hyponatremia - resolved #Hypochloremia - resolved Plan: - CTM with daily CMP #Hx soft tissue abscess anterior to C7 vertebral body - resolved Afebrile, no leukocytosis, procal unremarkable C spine MRI 12/13: negative for abscess, fracture, mass, disc herniation, cord impingement, cord signal abnormality or high grade neural foraminal stenosis Plan: - F/U outpatient with ENT if symptoms return #Depression Plan: - Buspar 7.5 mg daily (home med) Checklist Dispo: Continuing CIWA protocol. Anticipate d/c in next 24-48 hours Lines: PIV Diet: regular Bowel Reg: doc/senna PRN VTE ppx: heparin subQ GI ppx: pantoprazole 40 mg IV daily Pain mgmt: Tylenol PO PRN Code status: full Plan discussed with Dr. Anoop Prasad and Dr. Libia Galvan MD PGY1 Attending Provider Attestation/Addendum I reviewed labs, imaging, EKG, home medications and prior available records. Face to face evaluation was performed by me. I have personally examined the patient and discussed assessment and plan with the IM team. I reviewed the resident note and agree with the plan with exceptions as below. Alcohol abuse Alcohol withdrawal Insomnia Low back pain Continue CIWA protocol Counseled the patient regarding importance of alcohol cessation He is interesting in joining a rehab program Lidocaine patch for back pain IV Benadryl for insomnia
[2024-12-18 12:00] VITALS: BP 108/64; PULSE 75; PULSE 76; RESP 17; TEMP 36.5; O2SAT 100
[2024-12-18] MEDS: LIDOCAINE 5% 1 PATCH TOP (13:30)
[2024-12-18 16:00] VITALS: BP 114/70; PULSE 72; PULSE 75; RESP 17; TEMP 36.7; O2SAT 97
[2024-12-18] MEDS: MIDAZOLAM INJ 1 MG/ML VIAL 2 ML 2 MG IVP ×2 (16:52→22:11)
[2024-12-18 20:00] VITALS: BP 116/76; PULSE 84; PULSE 92; RESP 16; TEMP 37.1; O2SAT 98
[2024-12-19] VITALS (7 sets, daily range): BP systolic 101–112; BP diastolic 60–75; PULSE 69–100; RESP 15–24; TEMP 36.6–37.1; O2SAT 96–99; BMI 26.5
[2024-12-19 05:38] LABS: Basophils # (Auto) 0.0 Thou/mm3 (0.0-0.2); Basophils % (Auto) 1 % (0-2.5); Eosinophils # (Auto) 0.2 Thou/mm3 (0.0-0.5); Eosinophils % (Auto) 4 % (0-10); Hematocrit 30.9 % (41.0-53.0); Hemoglobin 10.2 g/dL (13.5-16.0); Immature Granulocytes Auto 0.01 Thou/mm3 (0.00-0.00); Lymphocytes # (Auto) 1.5 Thou/mm3 (1.0-4.8); Lymphocytes % (Auto) 35 % (10-50); Mean Corpuscular HGB Conc 33.0 g/dl (31.0-37.0); Mean Corpuscular Hemoglobin 29.3 pg (25.0-35.0); Mean Corpuscular Volume 89 fL (80-100); Monocytes # (Auto) 0.6 Thou/mm3 (0.0-0.8); Monocytes % (Auto) 14 % (0-12); Neutrophils # (Auto) 2.1 Thou/mm3 (1.8-7.7); Neutrophils % (Auto) 47 % (37-80); Nucleated Red Blood Cell # 0.00 Thou/mm3 (0.00-0.00); Nucleated Red Blood Cell % 0 /100 WBC (0); Platelet Count 202 Thou/mm3 (140-440); RDW Standard Deviation 56.9 fL (35.1-43.9); Red Blood Count 3.48 Miln/mm3 (4.50-5.90); White Blood Count 4.4 Thou/mm3 (3.8-10.6)
[2024-12-19 06:02] LABS: Alanine Aminotransferase 69 U/L (10-49); Albumin, Serum 4.7 gm/dL (3.5-5.0); Albumin/Globulin Ratio 2.4 (1.2-2.2); Alkaline Phosphatase 146 U/L (46-116); Anion Gap 11 (7-16); Aspartate Amino Transferase 67 U/L (0-34); BUN/Creatinine Ratio 7 Ratio (12-20); Bilirubin,Total 0.3 mg/dL (0.3-1.2); Blood Urea Nitrogen 6 mg/dL (9-23); Calcium 9.3 mg/dL (8.3-10.6); Calcium (Corrected) 9.3 mg/dL (8.5-10.1); Carbon Dioxide 25.5 mMol/L (20.0-31.0); Chloride 104 mMol/L (98-107); Creatinine (Component) 0.9 mg/dL (0.6-1.3); Estimated Creatinine Clearance 104.5 mL/min (>60); Globulin 2.0 gm/dL (2.3-3.5); Glucose 114 mg/dL (74-106); Magnesium 1.6 mg/dL (1.6-2.6); Osmolality,Calculated 278 (275-295); Phosphorous 3.8 mg/dL (2.4-5.1); Potassium 3.6 mMol/L (3.4-5.1); Sodium 140 mMol/L (136-145); Total Protein 6.7 gm/dL (5.7-8.2); eGFR > 60 See Note
[2024-12-19] MEDS: HEPARIN SOD INJ 5000 UNIT/ML VIAL SC ×3 (06:24→21:23)
--- NOTE | 2024-12-19 07:42 | PD.RESPRO ---
Documentation for date of: 12/19/24 Subjective Subjective Interval history: NAEO. CIWA: 2--> 16 --> 6 -> 16 --> 10 --> 6 --> 9 (scoring on anxiety and visual/auditory/tactile disturbances). Still receiving Midazolam IV. Added Lorazepam 1 mg PO q4h PRN anxiety 12/18. Patient reports that his headache is improved, tremors improved, voice and neck pain improved. Continues to have back pain, managed with Cyclobenzaprine and lidocaine patch. Stated that IV benadryl helped with insomnia last night. Avoiding IV pain meds. Exam Vital Signs Temp Pulse Resp BP Pulse Ox O2 Del Method 97.9 F 80 23 H 109/63 97 Room Air 12/19/24 04:00 12/19/24 04:00 12/19/24 04:00 12/19/24 04:00 12/19/24 04:00 12/19/24 04:00 Narrative Exam General: Acute distress, lying in bed Eye: PERRL, EOMI, normal conjunctiva, no scleral icterus HENT: Normocephalic, atraumatic, normal hearing, moist oral mucosa. Neck: Supple, non-tender, no JVD, no lymphadenopathy Lungs: Clear to auscultation bilaterally, non-labored respirations, symmetric chest rise, no use of accessory muscles Heart: Normal S1 and S2, no S3 or S4 appreciated. Normal rate and regular rhythm, no murmurs, rubs gallops, or edema. Peripheral pulses intact bilaterally, capillary refill brisk distally Abdomen: Soft, non-tender, non-distended, normal bowel sounds. No guarding or rebound tenderness. Musculoskeletal: Normal range of motion and strength, no tenderness or swelling Skin: Skin is warm, dry, no rashes or lesions. Neurologic: Alert, awake and oriented x3. CN II-XII grossly intact. No focal neuro deficits. No signs of meningeal irritation noted. Psychiatric: Cooperative, appropriate mood and affect CIWA: Nausea/vomitin Tremor: 1 Paroxysmal sweats: 0 Anxiety: 2 Agitation: 0 Tactile disturbance: 0 Auditory disturbance: 0 Visual disturbance: 0 Headache/fullness in head: 1 Orientation/clouding of sensorium: 0 Total: 4 Objective Labs 12/19/24 05:03 12/19/24 05:03 Labs: Laboratory Results - last 24 hr 12/18/24 12/19/24 09:18 05:03 WBC 4.0 4.4 RBC 3.57 L 3.48 L Hgb 10.2 L 10.2 L Hct 31.4 L 30.9 L MCV 88 89 MCH 28.6 29.3 MCHC 32.5 33.0 RDW Std Deviation 55.5 H 56.9 H Plt Count 250 202 D Neut % (Auto) 52 47 Lymph % (Auto) 30 35 Atkinson % (Auto) 11 14 H Eos % (Auto) 5 4 Baso % (Auto) 1 1 Neut # (Auto) 2.1 2.1 Lymph # (Auto) 1.2 1.5 Atkinson # (Auto) 0.5 0.6 Eos # (Auto) 0.2 0.2 Baso # (Auto) 0.0 0.0 Immature Gran # (Auto) 0.01 H 0.01 H Absolute Nucleated RBC 0.00 0.00 Immature Gran % 0 0 Nucleated RBC % 0 0 Sodium 141 140 Potassium 4.1 3.6 D Chloride 106 104 Carbon Dioxide 25.9 25.5 Anion Gap 9 11 BUN 5 L 6 L Creatinine 0.9 0.9 Estim Creat Clear Calc 104.7 104.5 eGFR > 60 > 60 BUN/Creatinine Ratio 6 L 7 L Glucose 91 114 H Calculated Osmolality 278 278 Calcium 9.1 9.3 Corrected Calcium 9.1 9.3 Phosphorus 2.5 3.8 Magnesium 1.6 1.6 Total Bilirubin 0.3 0.3 AST 73 H 67 H ALT 71 H 69 H Alkaline Phosphatase 165 H 146 H Total Protein 7.0 6.7 Albumin 4.9 4.7 Globulin 2.1 L 2.0 L Albumin/Globulin Ratio 2.3 H 2.4 H Quality Measures Quality Measures none Assessment & Plan Assessment Current Active Medications: Generic Name Dose Route Start Last Admin Trade Name Freq PRN Reason Stop Dose Admin Acetaminophen 650 mg 12/13/24 16:39 12/15/24 09:38 Acetaminophen 325 Mg Tablet PO 01/12/25 16:38 650 mg Q6H PRN Administration Fever >100.3 Acetaminophen 650 mg 12/13/24 16:39 12/17/24 21:31 Acetaminophen 325 Mg Tablet PO 01/12/25 16:38 650 mg Q6H PRN Administration PAIN SCALE 1-3 (mild Buspirone HCl 7.5 mg 11/07/25 09:00 12/18/24 08:22 Buspirone Hcl 5 Mg Tablet PO 01/13/25 08:59 7.5 mg DAILY APOORVA Administration Chlordiazepoxide HCl 25 mg 12/18/24 21:00 12/18/24 20:04 Chlordiazepoxide Hcl 25 Mg Capsule PO 12/23/24 20:59 25 mg BID APOORVA Administration Cyclobenzaprine HCl 5 mg 12/16/24 12:35 12/18/24 16:52 Cyclobenzaprine 5 Mg Tablet PO 01/15/25 12:34 5 mg TID PRN Administration MUSCLE SPASMS Diphenhydramine HCl 25 mg 12/18/24 13:46 12/18/24 20:07 Diphenhydramine Inj 50 Mg/Ml Vial IVP 01/17/25 20:59 25 mg HS PRN Administration insomnia Heparin Sodium (Porcine) 5,000 unit 12/13/24 22:00 12/19/24 06:24 Heparin Sod Inj 5000 Unit/Ml Vial SC 12/27/24 21:59 5,000 unit Q8HR APOORVA Administration Lorazepam 0.5 mg 12/13/24 17:32 12/18/24 10:25 Lorazepam 0.5 Mg Tablet PO 12/21/24 18:47 0.5 mg Q4H PRN Administration [facility] 2-6 Lorazepam 1 mg 12/18/24 10:35 12/18/24 18:01 Lorazepam 0.5 Mg Tablet PO 12/23/24 10:34 1 mg Q4H PRN Administration ANXIETY Midazolam HCl 4 mg 12/13/24 17:32 12/18/24 12:21 Midazolam Inj 1 Mg/Ml Vial 2 Ml IVP 12/21/24 18:47 4 mg Q2H PRN Administration CIWA 12- Midazolam HCl 2 mg 12/13/24 17:32 12/18/24 22:11 Midazolam Inj 1 Mg/Ml Vial 2 Ml IVP 12/21/24 18:47 2 mg Q2H PRN Administration [facility] 7-11 Ondansetron HCl 4 mg 12/13/24 16:39 Ondansetron Inj 2 Mg/Ml Inj 2 Ml IVP 01/12/25 16:38 Q6H PRN NAUSEA OR VOMITING Protocol Pantoprazole Sodium 40 mg 12/15/24 09:00 12/18/24 08:22 Pantoprazole 40 Mg Tablet PO 01/14/25 08:59 40 mg QDAY APOORVA Administration Protocol Sennosides 1 tab 12/13/24 17:27 Senna/Docusate Sod 1 Tab Tablet PO 01/12/25 17:26 QDAY PRN CONSTIPATION Protocol Plan Mr. Ybarra is a 29 y/o male with PMH cirrhosis and esophageal varices 2/2 EtOH use disorder who presented to the ED 12/13 with generalized myalgia, sore throat, tremor, paresthesias, chest pain, neck pain and shortness of breath. Last drink 3 days ago, drank 40 oz beer. Admitted for alcohol withdrawal. #Acute Alcohol withdrawal #EtOH use disorder #Cirrhosis #Transaminitis - improved #Hx esophageal varices Initial presentation: tremors, N/V, paresthesias, neck pain, shortness of breath, headache AST 69, ALT 64, alk phos 177. No evidence of synthetic liver dysfunction. EtOH <3 CXR: unremarkable Received thiamine 500 mg IV x1 on admission Given occasional globus sensation in throat/mouth, speech eval was completed. Good laryngeal function. Recommended f/u outpatient GI or ENT. No further ST services required at this time. AST ALT elevated and stable CIWA scores have improved from admission, patient looks clinically improved, now outside window with withdrawal period, anticipate d/c in next 24 hours Plan: - CIWA: - Aitvan 0.5 mg PO q4h CIWA 2-6 - Aitvan 1 mg PO q2h CIWA 7-12 - Ativan 2 mg PO q2h CIWA 13-20 - Librium 25 mg PO BID - Ativan 1 mg PO q4h PRN anxiety - Thiamine 100 mg PO BID - Folic acid 1 mg PO BID - f/u outpatient GI or ENT if globus sensation continues - Will need alcohol rehab upon discharge - Avoid IV pain meds #Chest pain, atypical - resolved Most likely tactile disturbance 2/2 alcohol withdrawal. ACS unlikely Troponin unremarkable, flu negative, COVID negative EKG NSR HR 83, QTc 426, possible sinus arrhythmia Repeat EKG showed sinus bradycardia HR 53, QTc 428 Plan: - See withdrawal plan as above #Elevated lactic acid - resolved LA 2.8 --> 1.1 --> 0.8 Adebrile, no leukocytosis Given 1L LR, Vanc/Zosyn in ED Plan: - CTM fever curve #Electrolyte disturbances #Hyponatremia - resolved #Hypochloremia - resolved Plan: - CTM with daily CMP #Hx soft tissue abscess anterior to C7 vertebral body - resolved Afebrile, no leukocytosis, procal unremarkable C spine MRI 12/13: negative for abscess, fracture, mass, disc herniation, cord impingement, cord signal abnormality or high grade neural foraminal stenosis Plan: - F/U outpatient with ENT if symptoms return #Low back pain Plan: - Lidocaine patch and Cyclobenzaprine PRN - Avoid IV pain meds #Depression Plan: - Buspar 7.5 mg BID (home med) Checklist Dispo: Continuing PO CIWA protocol. Anticipate d/c in next 24-48 hours Lines: PIV Diet: regular Bowel Reg: doc/senna PRN VTE ppx: heparin subQ GI ppx: pantoprazole 40 mg IV daily Pain mgmt: Tylenol PO PRN Code status: full Plan discussed with Dr. Anoop Prasad and Dr. Libia Galvan MD PGY1 Attending Provider Attestation/Addendum I reviewed labs, imaging, EKG, home medications and prior available records. Face to face evaluation was performed by me. I have personally examined the patient and discussed assessment and plan with the IM team. I reviewed the resident note and agree with the plan with exceptions as below. Alcohol abuse Alcohol withdrawal Insomnia Low back pain Anxiety Continue CIWA protocol Counseled the patient regarding importance of alcohol cessation He is interesting in joining a rehab program Increased buspirone to 7.5 mg twice daily Lidocaine patch for back pain IV Benadryl for insomnia Minimize IV opiates use Outpatient follow-up with psychiatry
[2024-12-19] MEDS: PANTOPRAZOLE 40 MG TABLET PO (07:56)
--- NOTE | 2024-12-19 10:38 | PC.SS ---
rounding note: Physician team states patient's CIWA score is about a 9 today. Patient was experiencing anxiety and hallucinations. SS had a family discussion with parents and patient regarding in patient rehab. Patient verbalized to team that he already called and is on a waiting list. SS will follow up with [facility]. Parents will take patient home upon discharge and encourage in patient rehab through [facility] - [place], [place].
[2024-12-19] MEDS: ACETAMINOPHEN 325 MG TABLET 650 MG PO (10:46)
[2024-12-19] MEDS: KETOROLAC INJ 30 MG/ML VIAL IVP (14:48)
[2024-12-20] VITALS: BP 114/67; PULSE 71; PULSE 81; RESP 17; TEMP 36.6; O2SAT 98
[2024-12-20 04:00] VITALS: BP 92/64; PULSE 63; PULSE 67; RESP 16; TEMP 36.4; O2SAT 98
[2024-12-20 06:00] VITALS: BMI 26.3
[2024-12-20] MEDS: HEPARIN SOD INJ 5000 UNIT/ML VIAL SC ×2 (06:24→13:35)
[2024-12-20 06:33] LABS: Basophils # (Auto) 0.0 Thou/mm3 (0.0-0.2); Basophils % (Auto) 1 % (0-2.5); Eosinophils # (Auto) 0.2 Thou/mm3 (0.0-0.5); Eosinophils % (Auto) 5 % (0-10); Hematocrit 31.5 % (41.0-53.0); Hemoglobin 10.3 g/dL (13.5-16.0); Immature Granulocytes Auto 0.01 Thou/mm3 (0.00-0.00); Lymphocytes # (Auto) 1.5 Thou/mm3 (1.0-4.8); Lymphocytes % (Auto) 37 % (10-50); Mean Corpuscular HGB Conc 32.7 g/dl (31.0-37.0); Mean Corpuscular Hemoglobin 29.0 pg (25.0-35.0); Mean Corpuscular Volume 89 fL (80-100); Monocytes # (Auto) 0.7 Thou/mm3 (0.0-0.8); Monocytes % (Auto) 18 % (0-12); Neutrophils # (Auto) 1.7 Thou/mm3 (1.8-7.7); Neutrophils % (Auto) 40 % (37-80); Nucleated Red Blood Cell # 0.00 Thou/mm3 (0.00-0.00); Nucleated Red Blood Cell % 0 /100 WBC (0); Platelet Count 213 Thou/mm3 (140-440); RDW Standard Deviation 58.4 fL (35.1-43.9); Red Blood Count 3.55 Miln/mm3 (4.50-5.90); White Blood Count 4.1 Thou/mm3 (3.8-10.6)
[2024-12-20 06:45] LABS: Alanine Aminotransferase 66 U/L (10-49); Albumin, Serum 4.7 gm/dL (3.5-5.0); Albumin/Globulin Ratio 2.2 (1.2-2.2); Alkaline Phosphatase 133 U/L (46-116); Anion Gap 10 (7-16); Aspartate Amino Transferase 60 U/L (0-34); BUN/Creatinine Ratio 7 Ratio (12-20); Bilirubin,Total 0.4 mg/dL (0.3-1.2); Blood Urea Nitrogen 6 mg/dL (9-23); Calcium 9.3 mg/dL (8.3-10.6); Calcium (Corrected) 9.3 mg/dL (8.5-10.1); Carbon Dioxide 27.8 mMol/L (20.0-31.0); Chloride 104 mMol/L (98-107); Creatinine (Component) 0.9 mg/dL (0.6-1.3); Estimated Creatinine Clearance 104.1 mL/min (>60); Globulin 2.1 gm/dL (2.3-3.5); Glucose 94 mg/dL (74-106); Magnesium 1.8 mg/dL (1.6-2.6); Osmolality,Calculated 280 (275-295); Phosphorous 4.8 mg/dL (2.4-5.1); Potassium 3.7 mMol/L (3.4-5.1); Sodium 142 mMol/L (136-145); Total Protein 6.8 gm/dL (5.7-8.2); eGFR > 60 See Note
[2024-12-20 08:00] VITALS: BP 117/74; PULSE 73; PULSE 78; RESP 16; TEMP 36; O2SAT 99
--- NOTE | 2024-12-20 09:44 | PD.RESDS ---
Planned Discharge Date 12/20/24 DS: Providers Provider Date of admission: 12/13/24 16:34 Primary care physician: Physician No Primary/Family Admitting Provider: Julianna Galaviz DO Attending Provider on Admission: Tc Reza MD Consults: 12/14/24 16:00 Referral Speech Therapy Routine Comment: 12/15/24 14:09 Referral Physical Therapy Routine Comment: Physician Instructions: Attending Provider on DC: Shannan Galvan MD Discharging Provider: Dr. Reza DS: Diagnosis Problem List Completed Was Problem List Reviewed/Reconciled?: Yes Hospital Course Hospital Course Hospital course: Hospital Course Mr. Ybarra is a 29 y/o male with PMH cirrhosis and esophageal varices 2/2 EtOH use disorder who presented to the ED 12/13 with alcohol withdrawals. Last drink 3 days prior to admission, drank 40 oz beer. Patient repeatedly hospitalized for alcohol withdrawal, last hospitalization requiring ICU level of care with Precedex gtt. Transaminases were mildly elevated on admission, but no evidence of synthetic liver dysfunction. EtOH <3. Patient placed on CIWA scoring with PO Ativan and midazolam IV PRN per protocol for 6 days. In addition, patient was managed with Librium that was titrated down over the course of hospitalization. Thiamine and folate supplementation were provided BID. Given hx of soft tissue abscess anterior to C7, C spine MRI 12/13 was completed, negative for abscess, fracture, mass, disc herniation, cord impingement, cord signal abnormality or high grade neural foraminal stenosis. He initially had an elevated lactic acid in ED but resolved with IV fluids. Patient remained afebrile and without leukocytosis throughout hospitalization. Patient has severe anxiety, started Buspar 7.5 mg PO BID. PRN Ativan IV was added to medical management for anxiety. Patient also has insomnia, managed with Benadryl IV PRN. Patient expressed understanding that alcohol use cessation is medically recommended to prevent further damage to liver. Social workers have diligently been working to find alcohol rehab facilities options for patient to attend after discharge, however no beds are available at this time. Patient expressed interest in attending alcohol rehab. Patient hemodynamically stable. Labs reviewed and stable. Able to tolerate PO intake. Patient stable and medically cleared for discharge. Diagnoses #Acute Alcohol withdrawal #EtOH use disorder #Cirrhosis #Transaminitis - improved #Hx esophageal varices #Chest pain - atypical - resolved #Elevated lactic acid - resolved #Electrolyte disturbances #Hx soft tissue abscess anterior to C7 vertebral body - resolved #Depression #Anxiety Discharge Instructions - Please follow up with alcohol rehabilitation for alcohol use disorder - Stop drinking alcohol - Take Buspar 7.5 mg once daily, in 1 week increase your dose to twice daily - Take Cyclobenzaprine 5 mg daily as needed for pain - Take Benadryl 25 mg or melatonin 5 mg as needed for sleep at night before bed - Follow up with PCP within 1 week of discharge, if you do not have a primary care physician you can come see us at the [facility] by calling [phone] - Continue rest of medications as previously prescribed - Return to the ED or call EMS if symptoms return and/or worsen Shannan Galvan MD PGY1 Time Spent with Patient Time attestation: Total time spent providing and/or coordinating discharge services: Time spent: Greater than 30 minutes Exam Vital Signs Temp Pulse Resp BP Pulse Ox O2 Del Method 96.8 F 73 16 117/74 99 Room Air 12/20/24 08:00 12/20/24 08:00 12/20/24 08:00 12/20/24 08:00 12/20/24 08:00 12/20/24 08:00 Narrative Exam General: Acute distress, lying in bed Eye: PERRL, EOMI, normal conjunctiva, no scleral icterus HENT: Normocephalic, atraumatic, normal hearing, moist oral mucosa. Neck: Supple, non-tender, no JVD, no lymphadenopathy Lungs: Clear to auscultation bilaterally, non-labored respirations, symmetric chest rise, no use of accessory muscles Heart: Normal S1 and S2, no S3 or S4 appreciated. Normal rate and regular rhythm, no murmurs, rubs gallops, or edema. Peripheral pulses intact bilaterally, capillary refill brisk distally Abdomen: Soft, non-tender, non-distended, normal bowel sounds. No guarding or rebound tenderness. Musculoskeletal: Normal range of motion and strength, no tenderness or swelling Skin: Skin is warm, dry, no rashes or lesions. Neurologic: Alert, awake and oriented x3. CN II-XII grossly intact. No focal neuro deficits. No signs of meningeal irritation noted. Psychiatric: Cooperative, appropriate mood and affect Discharge Plan Plan Patient Disposition: HOME (Self Care) Patient condition on transfer: Stable Care Plan Goals: - Please follow up with alcohol rehabilitation for alcohol use disorder - Stop drinking alcohol - Take Buspar 7.5 mg once daily, in 1 week increase your dose to twice daily - Take Cyclobenzaprine 5 mg daily as needed for pain - Take Benadryl 25 mg or melatonin 5 mg as needed for sleep at night before bed - Follow up with PCP within 1 week of discharge, if you do not have a primary care physician you can come see us at the [facility] by calling [phone] - Continue rest of medications as previously prescribed - Return to the ED or call EMS if symptoms return and/or worsen Prescriptions/Referrals Prescriptions/Med Rec: New diphenhydramine HCl [Benadryl] 25 mg capsule 25 mg PO HS 30 Days Qty: 30 0RF melatonin 5 mg capsule 5 mg PO HS PRN (Reason: sleep) 30 Days Qty: 30 0RF Continued pantoprazole [Protonix] 40 mg tablet,delayed release (DR/EC) 40 mg PO DAILY 30 Days Qty: 30 3RF Rx Instructions: Take one tablet by mouth twice a day buspirone 7.5 mg tablet 7.5 mg PO BID Qty: 20 0RF thiamine mononitrate (vit B1) 100 mg Tablet 100 mg PO QDAY 30 Days Qty: 30 0RF folic acid 1 mg Tablet 1 mg PO QDAY 30 Days Qty: 30 0RF Changed cyclobenzaprine 5 mg tablet 5 mg PO QHS PRN (Reason: Muscle pain) 30 Days Qty: 30 1RF Rx Instructions: Take one tablet by mouth every night Discontinued naltrexone 50 mg tablet 50 mg PO QDAY 30 Days Qty: 30 1RF Rx Instructions: Take one tablet by mouth every day lidocaine 5 % adhesive patch,medicated 1 patch topical QDAY 30 Days Qty: 30 1RF Rx Instructions: leave on most painful area for up to 12 hrs (DME) Aqinject Safety Syringe 3 mL 25 gauge x 1 syringe See Rx Instructions .Route Qty: 100 0RF Rx Instructions: As directed naltrexone microspheres 380 mg suspension,extended rel recon 380 mg IM QMONTH 30 Days Qty: 1 2RF Rx Instructions: Inject intramuscularly once a month as directed naltrexone 50 mg tablet 50 mg PO QDAY 30 Days Qty: 30 0RF Referrals: No Primary/Family,Physician [Primary Care Provider] Patient/Caregiver Discharge Instructions Discharge Activity: activity as tolerated Education Materials: Social Drinking vs Problem Drinking, Understanding the Disease of Addiction, Alcoholism: Getting Help, Alcohol Addiction Print Language: Vietnamese Stand Alone Forms: Claire Award Info., Patient Portal Info Letter Discharge Order Discharge Orders: Discharge (Routine); Ordered 12/20/24 Ordered By: Raeann Gramajo Quality Discharge Quality Measures VTE prophylaxis MD Attestestation MD Attestation I reviewed labs, imaging, EKG, home medications and prior available records. Face to face evaluation was performed by me. I have personally examined the patient and discussed assessment and plan with the IM team. I reviewed the resident note and agree with the plan with exceptions as below. Alcohol abuse Alcohol withdrawal Insomnia Low back pain Anxiety Counseled the patient regarding importance of alcohol cessation He is interesting in joining a rehab program Increased buspirone to 7.5 mg twice daily Midodrine and melatonin for insomnia Continue thiamine and folic acid upon discharge Outpatient follow-up with psychiatry Time spent is 42 minutes. More than 50% of the time was spent on patient education and coordination of care.
[2024-12-20] MEDS: PANTOPRAZOLE 40 MG TABLET PO (10:04)
[2024-12-20 12:00] VITALS: BP 107/58; PULSE 69; PULSE 78; RESP 16; TEMP 37.1; O2SAT 97
[2024-12-20 15:25] VITALS: BP 117/48; PULSE 77; RESP 22; TEMP 37.1; O2SAT 97
[2024-12-20 16:00] VITALS: PULSE 76
== END 2024-12-20 17:00 | disposition home or self-care (01) | DRG 775 ==
LOC: SERX 15:50 → SERHOLD 17:07 → S2NX 20:36 → S3SX 12-19 23:39
PROVIDERS: Nurse Practitioner Family; Admitting Provider Internal Medicine; Emergency Provider Family Medicine; Visit Provider Student in an Organized Health Care Education/Training Program
DX: F10.232 Alcohol dependence with withdrawal with perceptual disturbance (principal); E87.1 Hypo-osmolality and hyponatremia; E87.8 Other disorders of electrolyte and fluid balance, not elsewhere classified; M54.2 Cervicalgia; F41.9 Anxiety disorder, unspecified; F32.A Depression, unspecified; G47.00 Insomnia, unspecified; R00.1 Bradycardia, unspecified; R07.89 Other chest pain; K70.30 Alcoholic cirrhosis of liver without ascites; R09.A2 Foreign body sensation, throat; Y90.0 Blood alcohol level of less than 20 mg/100 ml; I95.9 Hypotension, unspecified; M62.830 Muscle spasm of back; Z86.69 Personal history of other diseases of the nervous system and sense organs; Z79.899 Other long term (current) drug therapy
CPT/HCPCS: 36415; 71045; 72156; 80053; 80307; 80320; 83605; 83735; 84100; 84145; 84484; 85025; 85652; 85730; 86140; 86480; 87040; 87081; 87502; 87635; 92610; 93005; 93225; 96361; 96365; 96366; 96375; 96376; 97161; 99284; A4216; A9577; J1200; J1644; J1885; J2060; J2250; J2470; J2543; J2560; J3373; J3411; J3475; J3490; J7050; J7120; A9270; G0480

== ENCOUNTER 2025-01-07 13:52 | Emergency (ER) | payer MEDICAID, SELFPAY ==
[2025-01-07 13:53] VITALS: PULSE 108; RESP 16; O2SAT 95; BMI 23.6
[2025-01-07 14:05] VITALS: BP 148/84; PULSE 105; RESP 18; TEMP 36.8; O2SAT 99; BMI 22.3
--- NOTE | 2025-01-07 14:35 | PD.EDRME ---
Rapid Medical Screening Exam RME Arrival date/time: 01/07/25 13:52 29-year-old male well-known to the ER history of alcohol abuse reports with complaints of withdrawal symptoms x 1 day Chief Complaint: Alcohol Time Seen by Provider: 01/07/25 14:28 Vital signs: Vital Signs Temperature 98.2 F 01/07/25 14:05 Pulse Rate 105 H 01/07/25 14:05 Respiratory Rate 18 01/07/25 14:05 Blood Pressure 148/84 H 01/07/25 14:05 Pulse Oximetry (%) 99 01/07/25 14:05 Oxygen Delivery Method Room Air 01/07/25 14:05 Exam: 0 Clinical Impression: 0
[2025-01-07 15:11] LABS: Basophils # (Auto) 0.1 Thou/mm3 (0.0-0.2); Basophils % (Auto) 1 % (0-2.5); Eosinophils # (Auto) 0.0 Thou/mm3 (0.0-0.5); Eosinophils % (Auto) 1 % (0-10); Hematocrit 36.8 % (41.0-53.0); Hemoglobin 12.2 g/dL (13.5-16.0); Immature Granulocytes Auto 0.01 Thou/mm3 (0.00-0.00); Lymphocytes # (Auto) 1.9 Thou/mm3 (1.0-4.8); Lymphocytes % (Auto) 40 % (10-50); Mean Corpuscular HGB Conc 33.2 g/dl (31.0-37.0); Mean Corpuscular Hemoglobin 28.4 pg (25.0-35.0); Mean Corpuscular Volume 86 fL (80-100); Monocytes # (Auto) 0.6 Thou/mm3 (0.0-0.8); Monocytes % (Auto) 13 % (0-12); Neutrophils # (Auto) 2.2 Thou/mm3 (1.8-7.7); Neutrophils % (Auto) 45 % (37-80); Nucleated Red Blood Cell # 0.00 Thou/mm3 (0.00-0.00); Nucleated Red Blood Cell % 0 /100 WBC (0); Platelet Count 350 Thou/mm3 (140-440); RDW Standard Deviation 61.1 fL (35.1-43.9); Red Blood Count 4.30 Miln/mm3 (4.50-5.90); White Blood Count 4.9 Thou/mm3 (3.8-10.6)
[2025-01-07 15:50] LABS: Alanine Aminotransferase 23 U/L (10-49); Albumin, Serum 5.5 gm/dL (3.5-5.0); Albumin/Globulin Ratio 1.8 (1.2-2.2); Alkaline Phosphatase 147 U/L (46-116); Anion Gap 14 (7-16); Aspartate Amino Transferase 39 U/L (0-34); BUN/Creatinine Ratio 8 Ratio (12-20); Bilirubin,Total 0.6 mg/dL (0.3-1.2); Blood Urea Nitrogen 7 mg/dL (9-23); Calcium 8.9 mg/dL (8.3-10.6); Calcium (Corrected) 8.9 mg/dL (8.5-10.1); Carbon Dioxide 24.9 mMol/L (20.0-31.0); Chloride 103 mMol/L (98-107); Creatinine (Component) 0.9 mg/dL (0.6-1.3); Estimated Creatinine Clearance 102.8 mL/min (>60); Globulin 3.0 gm/dL (2.3-3.5); Glucose 96 mg/dL (74-106); Lipase 33 U/L (12-53); Magnesium 2.4 mg/dL (1.6-2.6); Osmolality,Calculated 281 (275-295); Potassium 3.9 mMol/L (3.4-5.1); Sodium 142 mMol/L (136-145); Total Protein 8.5 gm/dL (5.7-8.2); eGFR > 60 See Note
[2025-01-07 15:52] LABS: Alcohol, Blood Medical 489.5 mg/dL (0-10.0)
[2025-01-07 17:43] VITALS: BP 138/86; PULSE 88; RESP 18; TEMP 36.7; O2SAT 97
--- NOTE | 2025-01-07 17:45 | PD.EDALCOH ---
ED Alcohol RME/HPI General Chief Complaint: Alcohol Stated Complaint: intoxicated Time Seen by Provider: 01/07/25 14:28 Arrival date/time: 01/07/25 13:52 RME / HPI RME / HPI narrative: 01/07/25 13:52 29-year-old male well-known to the ER history of alcohol abuse reports with complaints of withdrawal symptoms x [address] MONROY MAIN ED EVALUATION 29 year old male with history of alcoholism, liver cirrhosis and esophageal varices, prior GI bleed, alcohol withdrawal seizures, presents to the ED for evaluation of vomiting blood today. Reports two episodes of coffee ground gummy emesis occurring twice today. Accompanied by left paresthesia. Patient reports missing his family and feeling sad. No other complaints reported. Denies fevers, chills, chest pain, cough, shortness of breath, abdominal pain, diarrhea, constipation, blood in stool, or urinary symptoms. Patient additionally complains of neck pain which he states he due to a C7 injury which he is supposed to have surgery for. Exam: 0 Impression: 0 Related Data Previous Rx's ?Medication ?Instructions ?Recorded pantoprazole 40 mg tablet,delayed 40 mg PO DAILY 1 month #30 tabs 11/06/24 release (Protonix) buspirone 7.5 mg tablet 7.5 mg PO BID #20 tabs 11/17/24 cyclobenzaprine 5 mg tablet 5 mg PO QHS PRN Muscle pain 1 12/20/24 month #30 tabs diphenhydramine HCl 25 mg capsule 25 mg PO HS sleep 30 days #30 caps 12/20/24 (Benadryl) melatonin 5 mg capsule 5 mg PO HS PRN sleep 30 days #30 12/20/24 caps Allergies Allergy/AdvReac Type Severity Reaction Status Date / Time No Known Allergies Allergy Verified 01/07/25 13:58 Review of Systems Review of Systems Systems Reviewed: All systems reviewed, normal except as documented Past Medical History Past Medical History NEUROLOGIC: Positive Neurological Disorders RESPIRATORY: Positive Asthma (breathing difficulties) GASTROINTESTINAL: Positive Gastrointestinal Disorders and Cirrhosis PSYCHO/SOCIAL: Positive Depression and Anxiety Family History FAMILY HISTORY: Positive Family Psychiatric Problems Social History SMOKING STATUS: Current some day smoker SECOND HAND EXPOSURE: No ED Exam Narrative Physical exam: GENERAL APPEARANCE: alert and oriented x 4, well-developed, well-nourished, tearful, appears intoxicated HEENT: Normocephalic, atraumatic; pupils equal, round, reactive to light; EOMI; mucous membranes pink, moist; oropharynx clear NECK: Supple LUNGS: CTABL; no wheezes, no rales, no rhonchi HEART: Regular rate, regular rhythm; normal S1, S2; no murmurs ABDOMEN: non distended; normal BS; soft, no tenderness, no guarding, no rebound; no masses, no organomegaly, no hernia BACK: no CVA tenderness EXTREMITIES: atraumatic; no edema NEUROLOGIC: awake; alert and oriented x4; cranial nerves II-XII grossly intact; no focal sensory or motor deficits PSYCHIATRIC: Tearful, appears intoxicated SKIN: warm, dry, normal color; no rashes Course Quality Measures none Orders Category Date Time Status Alcohol, Blood Medical Stat Lab 01/07/25 14:48 Completed CBC Stat Lab 01/07/25 14:48 Completed CMP [Comprehensive Metabolic Panel] Stat Lab 01/07/25 14:48 Completed Drug Screen,Urine Stat Lab 01/07/25 18:28 Completed Lipase Stat Lab 01/07/25 14:48 Completed Mag [Magnesium] Stat Lab 01/07/25 14:48 Completed PT [Prothrombin Time with INR] Stat Lab 01/07/25 14:48 Completed PTT [Partial Thromboplastin Time] Stat Lab 01/07/25 14:48 Completed Folic Acid Inj Med 01/07/25 14:29 Discontinued 1 mg IM X1 ONE LORazepam [Ativan Inj] Med 01/07/25 14:29 Discontinued 2 mg IVP X1 ONE LORazepam [Ativan] Med 01/07/25 18:15 Discontinued 2 mg PO X1 ONE Multivitamin. Med 01/07/25 14:29 Discontinued 15 ml PO X1 ONE Sodium Chloride 0.9% 1000 ml [Ns] 1,000 ml Med 01/07/25 14:29 Discontinued IV 999 mls/hr Thiamine Inj [Vitamin B-1 Inj] Med 01/07/25 14:34 Discontinued 100 mg IM X1 ONE Vital Signs Vital signs: Vital Signs Temperature 98.2 F 01/07/25 14:05 Pulse Rate 105 H 01/07/25 14:05 Respiratory Rate 18 01/07/25 14:05 Blood Pressure 148/84 H 01/07/25 14:05 Pulse Oximetry (%) 99 01/07/25 14:05 Oxygen Delivery Method Room Air 01/07/25 14:05 Discharge Plan Plan Patient Disposition: HOME (Self Care) Patient condition on transfer: Stable Prescriptions/Referrals Prescriptions/Med Rec: No Action pantoprazole [Protonix] 40 mg tablet,delayed release (DR/EC) 40 mg PO DAILY 30 Days Qty: 30 3RF Rx Instructions: Take one tablet by mouth twice a day buspirone 7.5 mg tablet 7.5 mg PO BID Qty: 20 0RF cyclobenzaprine 5 mg tablet 5 mg PO QHS PRN (Reason: Muscle pain) 30 Days Qty: 30 1RF Rx Instructions: Take one tablet by mouth every night diphenhydramine HCl [Benadryl] 25 mg capsule 25 mg PO HS 30 Days Qty: 30 0RF melatonin 5 mg capsule 5 mg PO HS PRN (Reason: sleep) 30 Days Qty: 30 0RF Referrals: No Primary/Family,Physician [Primary Care Provider] - In 1 week Problem List Clinical Impression: Alcohol abuse Patient/Caregiver Discharge Instructions Education Materials: Addiction: Getting Help Additional Instructions: Return to the emergency department for worsening symptoms, or any other concerns. Print Language: Persian Stand Alone Forms: [employer] Award Info., Patient Portal Info Letter Alcohol MDM Narrative MDM Narrative: Hazel Bowen am scribing for and in the presence of Dr. Monroy. Patient data External records reviewed:: [facility] previous records and EMS form Clinical information provided by:: patient Social determinants that could affect healthcare access:: alcohol use Patient has the following chronic illnesses:: alcoholism, liver cirrhosis and esophageal varices, prior GI bleed, alcohol withdrawal seizures, How is presenting disease/condition affected by chronic disease/condition?: exacerbated by Evaluation data The following diagnostics were reviewed and interpreted by me:: lab results Lab and/or radiology exams considered but not ordered:: None Interpretation Summary: HGb today is 12.2 compared to Hgb on 12/20/24 that was 10.3, platelet count is within normal limits, PT/PTT within normal limits Medications / Prescriptions Medications or Prescriptions considered but not ordered:: None Medication administrations:: Medication Administration History Discontinued Medications Folic Acid (Folic Acid Inj 1 Mg/0.2 Ml) 1 mg IM X1 ONE Stop: 01/07/25 14:30 Last Admin: 01/07/25 18:14 Dose: Not Given Documented By: EF Non-Admin Reason: Cancelled by Provider Sodium Chloride (Ns) 1,000 mls @ 999 mls/hr IV .Q1H1M ONE Stop: 01/07/25 15:29 Last Admin: 01/07/25 18:14 Dose: Not Given Documented By: EF Non-Admin Reason: Cancelled by Provider Lorazepam (Lorazepam 2 Mg/Ml Vial) 2 mg IVP X1 ONE Stop: 01/07/25 14:30 Last Admin: 01/07/25 18:15 Dose: Not Given Documented By: EF Non-Admin Reason: Cancelled by Provider Lorazepam (Lorazepam 0.5 Mg Tablet) 2 mg PO X1 ONE Stop: 01/07/25 18:16 Last Admin: 01/07/25 18:22 Dose: 2 mg Documented By: EF Multivitamins/Minerals (Multivitamin 15 Ml Udc) 15 ml PO X1 ONE Stop: 01/07/25 14:30 Last Admin: 01/07/25 18:22 Dose: 15 ml Documented By: EF Thiamine HCl (Thiamine Inj 100 Mg/Ml Vial 2 Ml) 100 mg IM X1 ONE Stop: 01/07/25 14:35 Last Admin: 01/07/25 18:14 Dose: Not Given Documented By: EF Non-Admin Reason: Cancelled by Provider See above Consultations Consultation(s) initiated? (list below): No Diagnosis Most likely diagnosis given after review of the tests above:: Alcohol intoxication Admission Indicated Admission indicated?: not indicated Explain why admission is indicated or not indicated:: Care signed out to Dr. Walker pending [facility] Admission Request Was there a request for admission?: No Disposition Plan Disposition Plan: other (specify) (Signed out to Dr. Walker pending [facility] )
[2025-01-07 17:57] LABS: INR 1.0 (0.9-1.3); Partial Thromboplastin Time 31.9 Seconds (22.0-36.0); Prothrombin Time 11.0 Seconds (9.0-12.2)
[2025-01-07] MEDS: MULTIVITAMIN 15 ML UDC PO (18:22)
--- NOTE | 2025-01-07 18:43 | PD.EDADDENDU ---
Emergency Room Addendum Addendum Narrative: 1830: Care assumed from Dr. Reyes, the previous shift emergency physician. Past medical, surgical, social and family history reviewed. Vitals and home medications reviewed. Results and treatment plan discussed. I will assume the care of the patient at this time and will follow the patient, pending MTF. Please refer to the emergency department record for history and examination from initial visit. Patient is alert, awake, and oriented x3. He is communicating normally and is able to stand. Patient is stable to be discharged when he has a ride.
[2025-01-07 18:47] LABS: Amphetamine/Methamp Scrn,U Negative (Negative); Barbiturate Screen,Urine Negative (Negative); Benzodiazepines Screen,Urine Negative (Negative); Benzoylecgonine Screen, Ur Negative (Negative); Fentanyl Screen,Urine Negative (Negative); Opiate Screen,Urine Negative (Negative); THC Screen,Urine Negative (Negative)
[2025-01-07 20:45] VITALS: BP 124/81; PULSE 84; RESP 18; TEMP 36.8; O2SAT 98
[2025-01-08 01:17] VITALS: BP 112/61; PULSE 100; RESP 16; TEMP 36.8; O2SAT 97
[2025-01-08 04:15] VITALS: BP 120/74; PULSE 96; RESP 18; TEMP 36.8; O2SAT 99
[2025-01-08 06:04] VITALS: BP 115/69; PULSE 98; RESP 18; TEMP 36.9; O2SAT 98
[2025-01-08 08:00] VITALS: BP 133/81; PULSE 104; RESP 20; TEMP 36.9; O2SAT 97
--- NOTE | 2025-01-08 08:56 | EKG_ITS ---
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
--- NOTE | 2025-01-08 08:57 | XR_ITS ---
EXAMINATION: AP chest single view TECHNIQUE: AP portable semiupright chest single view Date and time: January 08, 2025, 0938 hours, comparison December 13, 2024 INDICATIONS: Chest pain today. FINDINGS: Normal heart size Lungs are clear. Osseous structures are intact IMPRESSION: No active disease
--- NOTE | 2025-01-08 08:58 | PC.NURSE ---
Patient assessed in room. Pt c/o pain to left side of chest and generalized, undescribale pain /. Dr. Hull made aware of pain that pt stated has been on and off all night.
--- NOTE | 2025-01-08 09:00 | PD.EDADDENDU ---
Emergency Room Addendum Addendum Narrative: 0855a: The patient was queued for discharge by previous physician. However, made aware by RN the patient is complaining of left-sided chest pain beginning intermittently throughout the night. Plan for EKG, CXR, and troponin prior to DC home. EKG @ 09:13 am, interpreted by me, normal sinus rhythm, rate 91, no STEMI. Troponin today was < 0.002. Chest xray negative for acute process. We reviewed all the results, analysis, and treatment plans. Patient is amenable to discharge. Strict return precautions were outlined.
[2025-01-08] MEDS: ACETAMINOPHEN 500 MG TABLET 1000 MG PO (09:02)
[2025-01-08 09:45] LABS: Troponin I < 0.002 ng/mL (0.0-0.045)
--- NOTE | 2025-01-08 10:53 | PC.NURSE ---
Patient continues to c/o pain to his chest, blood test and ekg were taken, tylenol 1gm po given. Per Dr nguyen pt may take ativan po for his withdrawals and be sent home.
[2025-01-08 11:17] VITALS: BP 121/74; PULSE 105; RESP 16; TEMP 36.7; O2SAT 96
== END 2025-01-08 11:21 | disposition home or self-care (01) ==
PROVIDERS: Emergency Medicine; Physician Assistant; Emergency Provider Emergency Medicine
DX: F10.20 Alcohol dependence, uncomplicated (principal); R07.89 Other chest pain; Y90.8 Blood alcohol level of 240 mg/100 ml or more; I49.3 Ventricular premature depolarization
CPT/HCPCS: 36415; 71045; 80053; 80307; 80320; 83690; 83735; 84484; 85025; 85610; 85730; 93005; 99283; A9270; G0480

== ENCOUNTER 2025-01-12 03:38 | Inpatient (IN) | payer MEDICAID, SELFPAY ==
[2025-01-12] VITALS (9 sets, daily range): BP systolic 107–130; BP diastolic 64–85; PULSE 62–97; RESP 16–20; TEMP 36.3–37.3; O2SAT 96–99; BMI 25.8
--- NOTE | 2025-01-12 04:49 | PD.RESPROC ---
PROCEDURES: Procedure Date / Time 01/12/25 0449 Intubation Indication(s): inability to protect airway Informed consent obtained: implied Time out done, and the following verified: correct patient, side and site, procedure, patient position and implants and/or equipment Sedative: etomidate Mg given: 20 Paralytic: rocuronium Mg given: 50 Laryngoscope: fiber optic video scope Assist device used: fiber optic device ET tube size: 7.5 ET tube uncuffed: Yes Tube secured depth (cm): 24 Tube secured location: teeth Tube placement confirmation: visualized tube passing through cords, equal breath sounds bilaterally, no breath sounds over epigastrium and confirmation by capnometry Patient tolerated procedure: well EBL(ml): 0 Intubation complications: none Additional comments: A time out was performed. My hands were washed immediately prior to the procedure. I wore a mask with protective eyewear, gown and gloves throughout the procedure. The patient was placed on a youth nutritional monitor including continuous pulse oximetry. Rapid Sequence Intubation was conducted. Using a fiberoptic laryngoscope and a size 7.5 endotracheal tube with stylet, the patient was intubated on the first attempt. The stylet was removed and cuff balloon was inflated. Appropriate endotracheal tube position was confirmed by direct visualization of vocal cord passage, fogging of the tube, CO2 colormetric indicator and symmetric breath sounds. The tube was secured at 24 cm at the lips. Post intubation chest x-ray is pending at this time.
--- NOTE | 2025-01-12 04:50 | EKG_ITS ---
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
--- NOTE | 2025-01-12 04:56 | EDNOTE_ITS ---
ED General RME/HPI General Chief complaint: Seizure Stated complaint: SEIZURES X2 TODAY Time Seen by Provider: 01/12/25 04:19 Arrival date/time: 01/12/25 03:38 Related Data Previous Rx's ?Medication ?Instructions ?Recorded pantoprazole 40 mg tablet,delayed 40 mg PO DAILY 1 tue #30 tabs 11/06/24 release (Protonix) buspirone 7.5 mg tablet 7.5 mg PO BID #20 tabs 11/17 cyclobenzaprine 5 mg tablet 5 mg PO QHS PRN Muscle shana n 1 12/20/24 month #30 tabs diphenhydramine HCl 25 mg capsule 25 mg PO HS sleep 30 days #30 caps 12/20/24 (Benadryl) melatonin 5 mg capsule 5 mg PO HS PRN sleep 30 days #30 12/20/24 caps Allergies Allergy/AdvReac Type Severity Reaction Status Date / Time No Known Allergies Allergy Verified 01/12/25 03:39 ED Exam Narrative Physical exam: Physical Exam: GENERAL: Awake, answering questions appropriately but appears to be reacting to hallucinations as well, frail appearing HEENT: NC/AT. Moist mucosa. PERRLA/EOMI. CARDIO: Heart RRR, no obvious murmurs, no JVD. PULM: No coughing or visible SOB. Lungs CTA B/L. GI: Abdomen soft, NT/ND, +BS. SKIN/MSK/EXT: No wounds/discoloration/rashes/edema/amputations noted, no noted pain on palpation. +Pedal pulses present B/L. Moves extremities x4. NEURO: Oriented x3, no focal neurologic deficits noted Course Quality Measures none Orders Category Date Time Status Admit to Inpatient Status Routine Admission 01/12/25 08:04 Active Patient Condition Routine Admission 01/12/25 08:04 Ordered COVID-19 Screening Questionnaire NOW Care 01/12/25 08:16 Active Decision to Admit X1 Care 01/12/25 08:16 Completed EKG (ED ONLY) *Do not use* NOW Care 01/12/25 04:50 Completed Notify provider NEEDED Care 01/12/25 08:04 Active Nurse Swallow Screen X1 Care 01/12/25 08:09 Active Saline [Insert IV] NOW Care 01/12/25 06:[address] cervical spine wo con Stat Exams 01/12/25 05:[address] chest abdomen pelvis wo Stat Exams 01/12/25 05:[address] head/brain wo con Stat Exams 01/12/25 05:24 Completed EKG (ED Only) Stat Exams 01/12/25 04:50 Draft Alcohol, Blood Medical Stat Lab 01/12/25 05:02 Completed Alcohol, Urine Stat Lab 01/12/25 06:47 Completed Amylase Stat Lab 01/12/25 05:00 Completed CBC Stat Lab 01/12/25 05:00 Completed CMP [Comprehensive Metabolic Panel] Stat Lab 01/12/25 05:00 Completed Drug Screen,Urine Stat Lab 01/12/25 06:47 Completed Free T3 Stat Lab 01/12/25 05:00 Completed Free T4 (Free Thyroxine) Stat Lab 01/12/25 05:00 Completed Lipase Stat Lab 01/12/25 05:00 Completed Magnesium Stat Lab 01/12/25 05:00 Completed PT [Prothrombin Time with INR] Stat Lab 01/12/25 05:00 Completed PTT [Partial Thromboplastin Time] Stat Lab 01/12/25 05:00 Completed Thyroid Stimulating Hormone Stat Lab 01/12/25 05:00 Completed UA, C/S IF [Urinalysis, C/S if Indicated] Stat Lab 01/12/25 06:44 Completed Diazepam Inj [Valium Inj] Med 01/12/25 08:05 Discontinued 2.5 mg IVP Q2HR PRN LORazepam [Ativan Inj] Med 01/12/25 05:19 Discontinued 2 mg IVP X1 ONE LORazepam [Ativan] Med 01/12/25 08:05 Active 0.5 mg PO Q4HR PRN LORazepam [Ativan] Med 01/12/25 08:05 Active 1 mg PO Q4HR PRN Ondansetron Inj [Zofran Inj] Med 01/12/25 06:24 Discontinued 4 mg IVP X1 ONE Ringers Lactated 1000 ml [Lactated Ringers] 1,000 ml Med 01/12/25 06:24 Discontinued IV 1,000 mls/hr Thiamine Inj [Vitamin B-1 Inj] Med 01/12/25 06:24 Discontinued 100 mg IVP X1 ONE chlordiazePOXIDE HCl [Librium] Med 01/12/25 09:00 Discontinued 50 mg PO Q12HR Code Status Routine Oth 01/12/25 08:04 Ordered Vital Signs Vital signs: Vital Signs Temperature 97.5 F 01/12/25 03:46 Pulse Rate 97 01/12/25 03:46 Respiratory Rate 18 01/12/25 03:46 Blood Pressure 126/76 01/12/25 03:46 Pulse Oximetry (%) 96 01/12/25 03:46 Oxygen Delivery Method Room Air 01/12/25 03:46 Discharge Plan Plan Patient Disposition: Admit Acute Care w/in Hospital Patient condition on transfer: Stable Problem List Clinical Impression: Alcohol withdrawal, Hypothyroidism MDM Narrative MDM hospital course (for use when minimal MDM required): HPI: 29-year-old male with past medical history of alcohol use disorder, 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 Patient does not remember exactly what happened but was found outside the hospital by security staff. Patient was apparently apprehensive about coming to the hospital because he feels as shamed that he is drinking again. Patient has multiple admissions to the hospital for alcohol withdrawal symptoms. He states that he would like to be admitted because he does not feel safe at this time. On examination, please reference physical exam above, patient presented normotensive, mildly tachycardic with heart rate 97, respiratory rate 18, afebrile satting 96 on room air. #Alcohol use disorder #Alcohol withdrawal symptoms As noted above, patient is has extensive history of being admitted for alcohol withdrawal symptoms On examination, he he does have withdrawal-like symptoms and this reacting to audiovisual hallucinations IV lorazepam 2 mg given x 1 Plan: Since the patient states that he hit his head, CT head without contrast ordered to rule out any concerning brain bleed although neurologic exam is largely unremarkable patient is reporting some left eye vision changes; however, pupils are equal and reactive to light bilaterally, cranial nerve II- intact grossly. Will await CT findings and signout patient to incoming ED physician Patient seen and assessed with attending Dr. Ana Maria Beasley, DO PGY-2 Internal Medicine - GME Medication Administration(s) Medication Administration History Acetaminophen (Acetaminophen 325 Mg Tablet) 325 mg PO Q4HR PRN PRN Reason: PainScale 1-07/17 or fever >100 Stop: 02/11/25 09:40 Last Admin: 01/12/25 12:22 Dose: 325 mg Documented By: DO Hydrocodone Bitart/Acetaminophen (Hydrocodone/Apap 5/325 Tablet) 1 tab PO Q4HR PRN PRN Reason: severe pain Stop: 01/17/25 09:40 Chlordiazepoxide HCl (Chlordiazepoxide Hcl 25 Mg Capsule) 50 mg PO TID [facility] Stop: 01/13/25 13:59 Folic Acid (Folic Acid Inj 1 Mg/0.2 Ml) 1 mg IVP QDAY [facility] Stop: 01/15/25 09:59 Last Admin: 01/12/25 11:59 Dose: 1 mg Documented By: DO Lorazepam (Lorazepam 0.5 Mg Tablet) 0.5 mg PO Q4HR PRN PRN Reason: CIWA Score 2-6 Stop: 01/17/25 08:04 Lorazepam (Lorazepam 0.5 Mg Tablet) 1 mg PO Q4HR PRN PRN Reason: CIWA SCORE 7-11 Stop: 01/17/25 08:04 Last Admin: 01/12/25 12:23 Dose: 1 mg Documented By: DO Lorazepam (Lorazepam 2 Mg/Ml Vial) 1 mg IVP Q4H PRN PRN Reason: ciwa 12 Stop: 01/17/25 12:55 Lorazepam (Lorazepam 2 Mg/Ml Vial) 2 mg IVP Q4H PRN PRN Reason: CIWA Stop: 01/17/25 12:55 Thiamine HCl (Thiamine 100 Mg Tablet) 100 mg PO BID [facility] Stop: 02/11/25 09:59 Last Admin: 01/12/25 10:18 Dose: Not Given Documented By: DO Non-Admin Reason: PT RECEIVED IV DOSE AT 0633 THIS AM Discontinued Medications Chlordiazepoxide HCl (Chlordiazepoxide Hcl 25 Mg Capsule) 50 mg PO Q12HR [facility] Stop: 01/13/25 08:59 Last Admin: 01/12/25 09:34 Dose: 50 mg Documented By: DO Diazepam (Diazepam Inj 5 Mg/Ml Vial 2 Ml) 2.5 mg IVP Q2HR PRN PRN Reason: CIWA SCORE 11-18 Stop: 01/17/25 08:04 Lactated Ringer's (Lactated Ringers) 1,000 mls @ 1,000 mls/hr IV .Q1H ONE Stop: 01/12/25 07:23 Last Admin: 01/12/25 06:33 Dose: 1,000 mls/hr Documented By: SR Magnesium Sulfate (Magnesium Sulfate Ivpb) 2 gm in 50 mls @ 25 mls/hr IV X1 ONE Stop: 01/12/25 11:44 Last Admin: 01/12/25 12:01 Dose: 25 mls/hr Documented By: DO Lorazepam (Lorazepam 2 Mg/Ml Vial) 2 mg IVP X1 ONE Stop: 01/12/25 05:20 Last Admin: 01/12/25 05:33 Dose: 2 mg Documented By: SR Ondansetron HCl (Ondansetron Inj 2 Mg/Ml Inj 2 Ml) 4 mg IVP X1 ONE; Protocol Stop: 01/12/25 06:25 Last Admin: 01/12/25 06:33 Dose: 4 mg Documented By: SR Thiamine HCl (Thiamine Inj 100 Mg/Ml Vial 2 Ml) 100 mg IVP X1 ONE Stop: 01/12/25 06:25 Last Admin: 01/12/25 06:33 Dose: 100 mg Documented By: SR
--- NOTE | 2025-01-12 05:24 | XR_ITS ---
Examination: CT brain head without contrast. 2-D sagittal coronal reconstructions Date and time of exam: January 12, 2025, 0609 hours, comparison November 16, 2024 MEDICATIONS: 2 seizures today CTDI: vol (mGy): 48.7 DLP: (mGycm): 966 Technique: Multiple CT axial sections of the brain have been obtained, 5 mm slice thickness. Contrast has not been administered. 2-D sagittal, coronal reconstructions have been obtained Low dose protocols were performed. One or more of the following dose reduction techniques were used; automated exposure control, adjustment of the mA and/or KV according to patient size, use of iterative reconstruction technique. Findings: No significant ventricular enlargement. Intra-axial or extra-axial hemorrhage density is not seen. No mass effect or midline shift Basal cisterns are not remarkable. Fourth ventricle is midline. Cranial vault intact. Impression: Negative for acute hemorrhage, mass effect or midline shift Advise clinical correlation and follow-up accordingly
[2025-01-12] MEDS: LORazepam 2 MG/ML VIAL IVP (05:33)
--- NOTE | 2025-01-12 05:57 | XR_ITS ---
Examination: CT cervical spine without contrast 2-D sagittal reconstructions 2-D coronal reconstructions 3-D reconstructions. Exam date and time: January 12, 2025, 0611 hours on INDICATIONS: Seizures today, patient fell with injury to the neck, neck pain CTDI:vol (mGy) 13.3 DLP: (mGycm) 273 Technique: Multiple 2 mm axial sections of the cervical spine have been obtained. The coronal and sagittal reconstructions have been obtained. 3-D reconstructions have been obtained. Low dose protocols were performed. One or more of the following dose reduction techniques were used; automated exposure control, adjustment of the mA and/or KV according to patient size, use of iterative reconstruction technique. Findings: Axial sections demonstrate intact base of the skull. C1 exhibit satisfactory relationship to the odontoid. No acute cervical vertebral body fracture seen. Alignment posterior spinous processes satisfactory. Impression: Patient motion degrades scan image quality No acute fracture depicted
--- NOTE | 2025-01-12 05:58 | XR_ITS ---
Examination: CT chest, without intravenous contrast. CT abdomen, without intravenous contrast. CT pelvis, without intravenous contrast. 2-D sagittal and coronal reconstructions. 3-D reconstructions. Date and time of exam: January 12, 2025, 0612 hours INDICATIONS: Seizure today, patient fell with injury to the chest and abdomen, chest pain abdomen pain CTDI vol (mgy) 10.1 DLP (MGycm) 741 Technique: Multiple CT images, 3.0 mm slice thickness, obtained chest, abdomen, pelvis, with the high-resolution 64 slice scanner.. Sagittal and coronal 2-D reconstructions are obtained. 3-D reconstructions Low dose protocols were performed. One or more of the following dose reduction techniques were used; automated exposure control, adjustment of the mA and/or KV according to patient size, use of iterative reconstruction technique. Findings: Thoracic aorta pulmonary arteries intact No hemopericardium No pneumothorax pulmonary contusion or hemothorax The sternal segment intact No thoracic lumbar or sacral fracture No acute rib fractures No liver splenic or renal laceration Abdominal aorta intact No free blood in the abdomen Negative for pneumoperitoneum Normal appendix Distended urinary bladder which is intact Normal seminal vesicles Normal prostate Hips bones of the pelvis intact IMPRESSION: Thoracic aorta pulmonary arteries intact No hemopericardium, pneumothorax, pulmonary contusion or hemothorax No abdominal parenchymal laceration Abdominal aorta intact No free blood in the abdomen or pelvis Osseous structures are intact
[2025-01-12 06:10] LABS: Basophils # (Auto) 0.0 Thou/mm3 (0.0-0.2); Basophils % (Auto) 0 % (0-2.5); Eosinophils # (Auto) 0.0 Thou/mm3 (0.0-0.5); Eosinophils % (Auto) 0 % (0-10); Hematocrit 35.3 % (41.0-53.0); Hemoglobin 11.6 g/dL (13.5-16.0); Immature Granulocytes Auto 0.02 Thou/mm3 (0.00-0.00); Lymphocytes # (Auto) 1.7 Thou/mm3 (1.0-4.8); Lymphocytes % (Auto) 28 % (10-50); Mean Corpuscular HGB Conc 32.9 g/dl (31.0-37.0); Mean Corpuscular Hemoglobin 28.2 pg (25.0-35.0); Mean Corpuscular Volume 86 fL (80-100); Monocytes # (Auto) 0.6 Thou/mm3 (0.0-0.8); Monocytes % (Auto) 11 % (0-12); Neutrophils # (Auto) 3.7 Thou/mm3 (1.8-7.7); Neutrophils % (Auto) 61 % (37-80); Nucleated Red Blood Cell # 0.00 Thou/mm3 (0.00-0.00); Nucleated Red Blood Cell % 0 /100 WBC (0); Platelet Count 348 Thou/mm3 (140-440); RDW Standard Deviation 59.7 fL (35.1-43.9); Red Blood Count 4.12 Miln/mm3 (4.50-5.90); White Blood Count 6.1 Thou/mm3 (3.8-10.6)
--- NOTE | 2025-01-12 06:20 | PD.EDADDENDU ---
Emergency Room Addendum Addendum Narrative: I took over the care from previous shift physician at _0600_ on _01/12/25_. See previous notes for complete H & P and ED course. I reviewed all diagnostic test results. My interpretation of the EKG is: Sinus rhythm (72 bpm) with nonspecific ST-T changes. My review of the head CT report is NAD. My review of the cervical spine CT report is no fracture. My review of the chest/abdominal CT report is no acute findings. Diagnoses include: Alcohol withdrawal Treatment here included: IVF Zofran 4 mg IV Ativan 2 mg IV Thiamine 100 mg IV Patient remained stable. I discussed the case with our hospitalist. About the presentation and exam and diagnostics and treatments here. And need of further care in the hospital. Will accept the patient. Jonathan Blackmon MD
[2025-01-12 06:31] LABS: Alanine Aminotransferase 30 U/L (10-49); Albumin, Serum 5.4 gm/dL (3.5-5.0); Albumin/Globulin Ratio 1.7 (1.2-2.2); Alkaline Phosphatase 166 U/L (46-116); Anion Gap 15 (7-16); Aspartate Amino Transferase 52 U/L (0-34); BUN/Creatinine Ratio 8 Ratio (12-20); Bilirubin,Total 0.3 mg/dL (0.3-1.2); Blood Urea Nitrogen 7 mg/dL (9-23); Calcium 8.7 mg/dL (8.3-10.6); Calcium (Corrected) 8.7 mg/dL (8.5-10.1); Carbon Dioxide 21.7 mMol/L (20.0-31.0); Chloride 109 mMol/L (98-107); Creatinine (Component) 0.9 mg/dL (0.6-1.3); Estimated Creatinine Clearance 99.2 mL/min (>60); Globulin 3.1 gm/dL (2.3-3.5); Glucose 107 mg/dL (74-106); Osmolality,Calculated 288 (275-295); Potassium 4.1 mMol/L (3.4-5.1); Sodium 146 mMol/L (136-145); Total Protein 8.5 gm/dL (5.7-8.2); eGFR > 60 See Note
[2025-01-12] MEDS: ONDANSETRON INJ 2 MG/ML INJ 2 ML 4 MG IVP (06:33)
[2025-01-12] MEDS: RINGERS LACTATED 1000 ML 1,000 ML IV (06:33)
[2025-01-12] MEDS: THIAMINE INJ 100 MG/ML VIAL 2 ML IVP (06:33)
[2025-01-12 06:43] LABS: INR 1.0 (0.9-1.3); Partial Thromboplastin Time 30.1 Seconds (22.0-36.0); Prothrombin Time 10.6 Seconds (9.0-12.2)
[2025-01-12 06:49] LABS: Collection Type, Urine Clean Catch; WBC,Urine 0 /hpf (0-5)
[2025-01-12 06:53] LABS: Amylase 86 U/L (30-118); Lipase 38 U/L (12-53); Magnesium 2.2 mg/dL (1.6-2.6); Thyroid Stimulating Hormone 0.32 uIU/mL (0.55-4.78)
[2025-01-12 07:07] LABS: Bilirubin,Urine Negative (Negative); Blood,Urine Negative (Negative); Clarity,Urine Clear (Clear/Hazy); Color,Urine Colorless (Lt Yel-Yel); Culture Indicated,Urine Not Indicated; Glucose, Urine Negative (Negative); Ketones,Urine Negative (Negative); Leukocyte Esterase,Urine Negative (Negative); Nitrite,Urine Negative (Negative); PH,Urine 6.0 (5.0-7.0); Protein,Urine Negative (Neg - Trace); RBC,Urine < 1 /hpf (0-3); Specific Gravity,Urine 1.006 (1.001-1.035); Squamous Epithelial Cell,Urine < 1 /hpf (0-5); Urobilinogen,Urine Negative mg/dL (0.0-1.0)
--- NOTE | 2025-01-12 07:45 | PC.NURSE ---
PT RESTING IN BED IN NO APPARENT DISTRESS. ALCOHOL ASSESSMENT DONE. PT REPORTS HEADACHE AND TREMORS FELT BUT NOT VISIBLE AT THIS TIME. PT STATES THAT HE HEARS RINGING. PT STATES THAT HE USUALLY DRINKS 3-4 32 OZ BEERS DAILY. PT ALERT AND ORIENTED. MOVING ALL EXTREMITIES EQUALLY.
[2025-01-12 08:09] LABS: Free T3 1.9 pg/mL (2.3-4.2); Free T4 (Free Thyroxine) 1.74 ng/dL (0.89-1.76)
[2025-01-12 08:24] LABS: Amphetamine/Methamp Scrn,U Negative (Negative); Barbiturate Screen,Urine Negative (Negative); Benzodiazepines Screen,Urine Positive (Negative); Benzoylecgonine Screen, Ur Negative (Negative); Fentanyl Screen,Urine Negative (Negative); Opiate Screen,Urine Negative (Negative); THC Screen,Urine Negative (Negative)
[2025-01-12 08:53] LABS: Alcohol, Blood Medical 396.4 mg/dL (0-10.0)
[2025-01-12 10:20] LABS: Alcohol, Urine Positive (Negative)
[2025-01-12] MEDS: FOLIC ACID INJ 1 MG/0.2 ML IVP (11:59)
[2025-01-12] MEDS: Magnesium Sulfate 2 GM Ivpb 2 GM/50 ML BAG IV (12:01)
[2025-01-12] MEDS: ACETAMINOPHEN 325 MG TABLET PO (12:22)
--- NOTE | 2025-01-12 13:29 | PD.RESHP ---
Documentation for date of: 01/12/25 [facility] History of Present Illness History of present illness: Mr. Ybarra is a 29 y/o male with PMH cirrhosis and esophageal varices 2/2 EtOH use disorder who presented to the ED on 01/11/2025 with episode of alcohol use and apparently falling near a bridge and hitting his head. Patient was very lethargic for hours on, unable to provide full responses to questions to him about his health. Patient does not remember exactly what happened but was found outside the hospital by security staff. Patient states that after a brief 6-day episode of sobriety from alcohol, he divulged back into drinking apparently 2-3beer/d. Patient had been drinking heavily in his early twenties. Patient states that he had a fall near a bridge and hit his head about 10 days ago. Patient was apparently apprehensive about coming to the hospital because he feels as shamed that he is drinking again. Patient has multiple admissions to the hospital for alcohol withdrawal symptoms. He states that he would like to be admitted because he does not feel safe at this time. As noted above, patient is has extensive history of being admitted for alcohol withdrawal symptoms On examination, he he does have withdrawal-like symptoms and this reacting to audiovisual hallucinations On examination, please reference physical exam above, patient presented ED course: Presented normotensive, mildly tachycardic with heart rate 97, respiratory rate 18, afebrile satting 96 on room air. WBC 6.1, Hgb 11.6, T.?bili?0.3, AST 52, ALT 30, ALP 166, TSH 0.32, free T3 1.9 IV lorazepam 2 mg given x 1 Since the patient states that he hit his head, CT head without contrast ordered to rule out any concerning brain bleed although neurologic exam was largely unremarkable patient is reporting some left eye vision changes. EKG showed sinus rhythm. CT head negative for acute hemorrhage, mass effect, or midline shift CT chest/abdomen/pelvis no abdominal parenchymal laceration, no free blood, osseous structures intact, thoracic and abdominal aorta intact Allergies: NKDA Home meds: buspirone 7.5 mg daily naltrexone 50 mg daily thiamine mononitrate (vit B1) 100 mg daily folic acid 1 mg daily pantoprazole 40 mg daily SgHx: none SHx: Previously drank hard liquor 1 year ago, now drinks ~40 oz beer daily. Previous UDS + THC, benzos, barbiturates, methamphetamines, opiates FHx: none reported Exam Vital Signs Temp Pulse Resp BP Pulse Ox O2 Del Method 98.0 F 67 18 117/76 99 Room Air 01/12/25 12:15 01/12/25 12:15 01/12/25 12:15 01/12/25 12:15 01/12/25 12:15 01/12/25 12:15 Narrative Exam General: Patient lethargic, opens his eyes to loud calls of his name, but falls back to sleep. Skin: Intact, Warm, no rashes. HEENT: Normocephalic, Atraumatic. Normal neck range of motion, Supple. Trachea midline. Respiratory: Lungs are clear to auscultation. Breath sounds are equal bilaterally with good, symmetric chest expansion. Cardiovascular: RRR, normal S1, S2, No murmurs. Distal pulses 2+ Abdomen: Abdomen non-distended, without erythema, or lesions. Normotensive bowel sounds x4. Percussion tympanic. Palpation soft, nontender in all four quadrants. No organomagely. Absent rigidity, guarding, or rebound. Musculoskeletal/Extremities: No erythema, swelling, tenderness of any joints. No edema of BLE. DP pulses +2/3 b/l. Full active ROM of all four extremities. Neurologic: NEURO: Oriented x3, cranial nerves II to XII grossly intact. Cerebellar exam ([id number]-xl-[id number], zzjp-[id number]) intact. Muscle strength 5/5 on UE and LE b/l, Moves extremities x4. Sensation intact to gross touch along C6-T1 and L2-S1 dermatomes. No focal neurologic deficits noted Psych: Thoughts linear and responses appropriate. Results: Labs 01/12/25 05:00 01/12/25 05:00 Labs: Short CBC 01/12/25 Range/Units 05:00 WBC 6.1 (3.8-10.6) Thou/mm3 Hgb 11.6 L (13.5-16.0) g/dL Hct 35.3 L (41.0-53.0) % Plt Count 348 (140-440) Thou/mm3 BMP 01/12/25 05:00 Sodium 146 H Potassium 4.1 Chloride 109 H Carbon Dioxide 21.7 BUN 7 L Creatinine 0.9 Glucose 107 H Calcium 8.7 Liver Function 01/12/25 Range/Units 05:00 Total Bilirubin 0.3 (0.3-1.2) mg/dL AST 52 H (0-34) U/L ALT 30 (10-49) U/L Alkaline Phosphatase 166 H (46-116) U/L Albumin 5.4 H (3.5-5.0) gm/dL Urine 01/12/25 Range/Units 06:44 Urine Color Colorless A (Lt Yel-Yel) Urine Clarity Clear (Clear/Hazy) Urine pH 6.0 (5.0-7.0) Ur Specific [place] 1.006 (1.001-1.035) Urine Protein Negative (Neg - Trace) Urine Glucose (UA) Negative (Negative) Quality Measures Quality Measures none Medications Home Medications and Allergies Home Medications ?Medication ?Instructions ?Recorded ?Confirmed ?Type chlordiazepoxide HCl 25 mg capsule 25 mg PO Q6H 01/12/25 01/12/25 History Allergies Allergy/AdvReac Type Severity Reaction Status Date / Time No Known Allergies Allergy Verified 01/12/25 03:39 Visit Medications Acetaminophen (Acetaminophen 325 Mg Tablet) 325 mg PO Q4HR PRN PRN Reason: PainScale 1-07/17 or fever >100 Stop: 02/11/25 09:40 Last Admin: 01/12/25 12:22 Dose: 325 mg Hydrocodone Bitart/Acetaminophen (Hydrocodone/Apap 5/325 Tablet) 1 tab PO Q4HR PRN PRN Reason: severe pain -11/16 Stop: 01/17/25 09:40 Chlordiazepoxide HCl (Chlordiazepoxide Hcl 25 Mg Capsule) 50 mg PO TID [facility] Stop: 01/13/25 13:59 Folic Acid (Folic Acid Inj 1 Mg/0.2 Ml) 1 mg IVP QDAY [facility] Stop: 01/15/25 09:59 Last Admin: 01/12/25 11:59 Dose: 1 mg Lorazepam (Lorazepam 0.5 Mg Tablet) 0.5 mg PO Q4HR PRN PRN Reason: CIWA Score 2-6 Stop: 01/17/25 08:04 Lorazepam (Lorazepam 0.5 Mg Tablet) 1 mg PO Q4HR PRN PRN Reason: CIWA SCORE 7-11 Stop: 01/17/25 08:04 Last Admin: 12/06/25 12:23 Dose: 1 mg Lorazepam (Lorazepam 2 Mg/Ml Vial) 1 mg IVP Q4H PRN PRN Reason: ciwa 1218 Stop: 01/17/25 12:55 Lorazepam (Lorazepam 2 Mg/Ml Vial) 2 mg IVP Q4H PRN PRN Reason: CIWA -25 Stop: 01/17/25 12:55 Thiamine HCl (Thiamine 100 Mg Tablet) 100 mg PO BID [facility] Stop: 02/11/25 09:59 Last Admin: 01/12/25 10:18 Dose: Not Given Discontinued Medications Chlordiazepoxide HCl (Chlordiazepoxide Hcl 25 Mg Capsule) 50 mg PO Q12HR [facility] Stop: 01/13/25 08:59 Last Admin: 01/12/25 09:34 Dose: 50 mg Diazepam (Diazepam Inj 5 Mg/Ml Vial 2 Ml) 2.5 mg IVP Q2HR PRN PRN Reason: CIWA SCORE 11-18 Stop: 01/17/25 08:04 Lactated Ringer's (Lactated Ringers) 1,000 mls @ 1,000 mls/hr IV .Q1H ONE Stop: 01/12/25 07:23 Last Admin: 01/12/25 06:33 Dose: 1,000 mls/hr Magnesium Sulfate (Magnesium Sulfate Ivpb) 2 gm in 50 mls @ 25 mls/hr IV X1 ONE Stop: 01/12/25 11:44 Last Admin: 01/12/25 12:01 Dose: 25 mls/hr Lorazepam (Lorazepam 2 Mg/Ml Vial) 2 mg IVP X1 ONE Stop: 01/12/25 05:20 Last Admin: 01/12/25 05:33 Dose: 2 mg Ondansetron HCl (Ondansetron Inj 2 Mg/Ml Inj 2 Ml) 4 mg IVP X1 ONE; Protocol Stop: 01/12/25 06:25 Last Admin: 01/12/25 06:33 Dose: 4 mg Thiamine HCl (Thiamine Inj 100 Mg/Ml Vial 2 Ml) 100 mg IVP X1 ONE Stop: 01/12/25 06:25 Last Admin: 01/12/25 06:33 Dose: 100 mg Assessment & Plan Plan Mr. Ybarra is a 29 y/o male with PMH cirrhosis and esophageal varices 2/2 EtOH use disorder who presented to the ED on 01/11/2025 with episode of alcohol use and apparently falling near a bridge and hitting his head. #Alcohol use disorder #Alcohol withdrawal symptoms #Acute encephalopathy Patient was brought in by neighbor who found him to be lying on the floor, deeply lethargic. Patient somnolent upon presentation. Complaining of auditory and visual hallucinations, present tremors, diaphoresis, but no signs concerning for seizure. EKG showed NSR. CT head negative. U ethyl alcohol 396.4, blood ethanol 492, although patient states he has not had more than 3 beers yesterday. Plan: - Ativan PO 1mg Q4h CIWA 7-11, IV 1mg for CIWA 12-18, and IV 2mg Q4h PRN CIWA 19-25 - Librium p.o. 50 mg TID -Thiamine p.o. 100 mg twice daily - Folic acid IV 1mg Qday - Zofran IV 4 mg PRN - oral rehydration Q1h #hx of hepatic insufficiency #hx of esophageal varices Pt reports RUQ pain and tenderness on exam. AST 52, ALT 30, ALP 166 (H) MELD-Na score 6 corresponding to 1.9% of mortality within the next 6 mo. Maddrey's score 0.3 (<32): Indicating good prognosis Abdominal ultrasound was negative for ascites GB ultrasound showed Liver 16.2 cm smooth contour. 7 mm gallstone Gallbladder wall 0.4 cm with possible edema Common bile duct 0.3 cm -ordered blood ammonia level #Hx soft tissue abscess anterior to C7 vertebral body - resolved Afebrile, no leukocytosis, procal unremarkable C spine MRI 12/13: negative for abscess, fracture, mass, disc herniation, cord impingement, cord signal abnormality or high grade neural foraminal stenosis Plan: - F/U outpatient with ENT if symptoms return #Depression Plan: - Resume Buspar 7.5 mg BID (home med) #Hypothyroidism TSH 0.32, free T31.9 Health Maintenance: Disposition: Telemetry Diet: Low-sodium PPx DVT: heparin SC 5000u bid Code Status: Routine This case was discussed with my attending physician, Dr. Aguilar, and senior resident, Dr Moore. Even though this this note was carefully revised there may still be minor errors in informatics physician liaison due to voice recognition software. Zak Abebe DO PGY I Senior Resident Attestation: Daysi is a 29-year-old male with significant past medical history of cirrhosis and esophageal varices secondary to alcohol abuse disorder, and reported that he has been drinking about age 15 to 16 years, and continues to drink heavily, and last drink was 2 days ago. He is blood alcohol level was 492. He reported visual, tactile and vocal hallucinations, along with generalized shakiness and tiredness. He also admitted right upper quadrant abdominal pain. He also reported falling and hitting his head over breeze, and underwent CT head and cervical spine, both were negative. The patient's MELD score was 6, and Madrey score was 0.3, with 7 mm gallstone and common bile duct of 0.3 cm. He was started on Librium 50 mg 3 times daily, thiamine 100 mg twice daily, folic acid 1 mg daily, and on CIWA protocol. He was admitted to telemetry unit. I discussed with and supervised the international student advisor physician involved in the care of this patient. I personally saw and examined the patient and discussed the assessment and plan with the entire medicine team, including my attending. I agree with the assessment and plan as documented above. Rosendo Moore MD PGY3 Internal Medicine Attending Provider Attestation/Addendum I or my resident physicians have discussed care with the ED physician and I have made the decision to admit. I have discussed and was present for the essential components of the history, physical examination, diagnosis, and treatment plan with the resident. I agree with the patient's care as documented by the resident and amended herein by me. Deni Aguilar DO. Although this document has been carefully reviewed, there may still be some phonetic and other typographical errors. These errors are purely grammatical due to imperfections in the software program and should not be construed in any way to compromise the substance of the patient's medical care during this visit.
--- NOTE | 2025-01-12 14:02 | XR_ITS ---
Examination: Abdomen sonogram, Limited Date and time of exam: January 12, 2025, 1435 hours INDICATIONS: Alcohol withdrawal, upper abdominal pain today Technique: Real-time hearn scale transabdominal sonographic images of the upper abdomen obtained. Findings: 7 mm gallstone Gallbladder wall 0.4 cm with possible edema Common bile duct 0.3 cm Pancreatic head 2.0 cm Liver 16.2 cm smooth contour Normal hepatopetal portal venous flow Patent IVC IMPRESSION: Recommend follow-up HIDA scan or MRCP to confirm acute calculus cholecystitis
--- NOTE | 2025-01-12 14:02 | XR_ITS ---
Examination: Abdomen sonogram, Limited Date and time of exam: January 12, 2025, 1456 hours INDICATIONS: Alcohol withdrawal with abdominal distention today Technique: Real-time hearn scale transabdominal sonographic images of the abdomen obtained. Findings: Negative for ascites IMPRESSION: Negative for ascites
[2025-01-12] MEDS: HYDROcodone/APAP 5/325 TABLET 1 TAB PO (16:05)
--- NOTE | 2025-01-12 16:38 | PC.NURSE ---
REPORT GIVEN TO RYAN ON TELE FLOOR. PT TO GO TO ROOM 273
[2025-01-12 19:09] LABS: Ammonia 13 uMol/L (11-32)
[2025-01-12] MEDS: HEPARIN SOD INJ 5000 UNIT/ML VIAL SC (20:24)
[2025-01-12] MEDS: THIAMINE 100 MG TABLET PO (20:25)
[2025-01-12] MEDS: MELATONIN 3 MG TABLET 6 MG PO (20:25)
[2025-01-13] VITALS (8 sets, daily range): BP systolic 107–121; BP diastolic 55–74; PULSE 50–85; RESP 13–17; TEMP 35.9–36.5; O2SAT 96–98
[2025-01-13 06:00] LABS: Basophils # (Auto) 0.0 Thou/mm3 (0.0-0.2); Basophils % (Auto) 1 % (0-2.5); Eosinophils # (Auto) 0.1 Thou/mm3 (0.0-0.5); Eosinophils % (Auto) 1 % (0-10); Hematocrit 30.5 % (41.0-53.0); Hemoglobin 9.8 g/dL (13.5-16.0); Immature Granulocytes Auto 0.01 Thou/mm3 (0.00-0.00); Lymphocytes # (Auto) 2.1 Thou/mm3 (1.0-4.8); Lymphocytes % (Auto) 45 % (10-50); Mean Corpuscular HGB Conc 32.1 g/dl (31.0-37.0); Mean Corpuscular Hemoglobin 28.2 pg (25.0-35.0); Mean Corpuscular Volume 88 fL (80-100); Monocytes # (Auto) 0.6 Thou/mm3 (0.0-0.8); Monocytes % (Auto) 12 % (0-12); Neutrophils # (Auto) 1.9 Thou/mm3 (1.8-7.7); Neutrophils % (Auto) 41 % (37-80); Nucleated Red Blood Cell # 0.00 Thou/mm3 (0.00-0.00); Nucleated Red Blood Cell % 0 /100 WBC (0); Platelet Count 237 Thou/mm3 (140-440); RDW Standard Deviation 63.2 fL (35.1-43.9); Red Blood Count 3.48 Miln/mm3 (4.50-5.90); White Blood Count 4.6 Thou/mm3 (3.8-10.6)
[2025-01-13 06:36] LABS: Alanine Aminotransferase 21 U/L (10-49); Albumin, Serum 4.1 gm/dL (3.5-5.0); Albumin/Globulin Ratio 1.5 (1.2-2.2); Alkaline Phosphatase 114 U/L (46-116); Anion Gap 11 (7-16); Aspartate Amino Transferase 29 U/L (0-34); BUN/Creatinine Ratio 10 Ratio (12-20); Bilirubin,Total 0.7 mg/dL (0.3-1.2); Blood Urea Nitrogen 8 mg/dL (9-23); Calcium 8.4 mg/dL (8.3-10.6); Calcium (Corrected) 8.4 mg/dL (8.5-10.1); Carbon Dioxide 25.7 mMol/L (20.0-31.0); Chloride 104 mMol/L (98-107); Creatinine (Component) 0.8 mg/dL (0.6-1.3); Estimated Creatinine Clearance 120.9 mL/min (>60); Globulin 2.7 gm/dL (2.3-3.5); Glucose 75 mg/dL (74-106); Magnesium 2.0 mg/dL (1.6-2.6); Osmolality,Calculated 278 (275-295); Phosphorous 4.5 mg/dL (2.4-5.1); Potassium 3.8 mMol/L (3.4-5.1); Sodium 141 mMol/L (136-145); Total Protein 6.8 gm/dL (5.7-8.2); eGFR > 60 See Note
[2025-01-13] MEDS: THIAMINE 100 MG TABLET PO ×2 (08:47→21:23)
[2025-01-13] MEDS: FOLIC ACID INJ 1 MG/0.2 ML IVP (08:47)
[2025-01-13] MEDS: HEPARIN SOD INJ 5000 UNIT/ML VIAL SC ×2 (08:47→21:24)
[2025-01-13] MEDS: CALCIUM CARBONATE 600 MG TABLET PO (08:47)
[2025-01-13] MEDS: HYDROcodone/APAP 5/325 TABLET 1 TAB PO ×3 (08:54→17:20)
--- NOTE | 2025-01-13 10:34 | PC.SS ---
This is 29-year-old, , single male who presented to the ED for alcohol withdrawals. Patient appeared alert and oriented to self, place and situation. Patient was pleasant, his mood was anxious and behavior was restless. Patient reported that prior to admission, patient was residing with his parents. Patient reported that he is independent with all ADLs, no DME use. Patient assigned his father, Abad (phone: [phone]) as his emergency contact. Patient reported that he stopped using alcohol on 01/06/2025. However, he had a verbal argument with his parents. Patient reported that he had 3 beers (40 oz. per beer). Patient reported that he collapsed outside his neighbor's yard and suffered from seizure like activity. Patient reported that prior to 01/06/2025, he had been drinking 8 to 9 beers (40 oz. per beer). Patient reported that he has several admission for alcohol withdrawal. Patient reported that he was waiting for after the holidays to join an inpatient AOD rehabilitation. Patient reported that on his last admission, he was provided with information for outpatient mental health services and AOD counseling. However, he missed his appointments due to transportation. 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 SW explained that AOD inpatient programs can be easily accessible from acute hospital due to ensuring that patient is sober and medically stable. SW explained to patient that if he returns home, more than likely he will engage in alcohol use due to his body learning to cope with alcohol; in addition, he has no coping skills for triggers or a support system. SW inquired about mental health history. Patient reported that his alcohol increased due to feeling depressed when the mother of his children left him. Patient reported that since then he has been experiencing anhedonia, insomnia, and lack of concentration in activities. Patient denied any HI, SI, or past suicide attempts. Even though, his behavior when under the influence of alcohol is impulsive and reckless. SW asked patient to think about this options while admitted. For now, patient will return home.
--- NOTE | 2025-01-13 12:18 | ESPR_ITS ---
<Statement entered by Andrea Conley MD - 01/13/25 15:04> I saw and examined patient personally and supervised PGY 1 resident, Dr. Abebe with formulating a management plan. I agree with the documentation with the exceptions as listed below. Patient was admitted for alcohol withdrawal. This morning patient CIWA score was 5 and his tremors are improved on exam. Patient still complains of epigastric and right upper quadrant pain, also tender to palpation weaned his Librium to 25 mg p.o. 3 times daily from 50 mg p.o. 3 times daily. Will continue to monitor for improvement. Also ordered MRCP to assess for possible cholecystitis. Counseled on alcohol cessation, foster care social worker will provide resources. Anticipate discharge within next 24 to 48 hours. Plan of care discussed with Attending Dr. Jeff Conley MD PGY 2 Disclaimer: This note was dictated by speech recognition. Minor errors in financial coach may be present due to voice recognition software. Documentation for date of: 01/13/25 Subjective Subjective Interval history: Patient was seen and examined at bedside. No acute events took place overnight. Patient needs to anxiety, agitation, visual hallucination (seeing figures), diaphoresis, headache, itching/poking in different areas of the body. Denies nausea, vomiting, auditory hallucinations. CIWA 8-9 overnight, and 5 in a.m. Patient has been getting Ativan 1 mg every 4 hours. Patient admits to right upper quadrant pain, and in the light of supportive imaging for cholecystitis, we will try and obtain MRCP. Exam Vital Signs Temp Pulse Resp BP Pulse Ox O2 Del Method 97.0 F 51 L 17 111/65 98 Room Air 01/13/25 07:45 01/13/25 07:45 01/13/25 07:45 01/13/25 07:45 01/13/25 07:45 01/13/25 07:45 Narrative Exam General: Patient lethargic, opens his eyes to loud calls of his name, but falls back to sleep. Skin: Intact, Warm, no rashes. HEENT: Normocephalic, Atraumatic. Normal neck range of motion, Supple. Trachea midline. Respiratory: Lungs are clear to auscultation. Breath sounds are equal bilaterally with good, symmetric chest expansion. Cardiovascular: RRR, normal S1, S2, No murmurs. Distal pulses 2+ Abdomen: Abdomen non-distended, without erythema, or lesions. Diminished bowel sounds. Percussion tympanic. Palpation soft, tender in RUQ. No organomagely. Absent rigidity, guarding, or rebound. Musculoskeletal/Extremities: No erythema, swelling, tenderness of any joints. No edema of BLE. DP pulses +2/3 b/l. Full active ROM of all four extremities. Neurologic: NEURO: Oriented x3, cranial nerves II to XII grossly intact. Muscle strength 5/5 on UE and LE b/l, Moves extremities x4. Sensation intact to gross touch along C6-T1 and L2-S1 dermatomes. No focal neurologic deficits noted Psych: Thoughts linear and responses appropriate. Objective Labs 01/13/25 04:25 01/13/25 04:25 Labs: Laboratory Results - last 24 hr 01/12/25 01/13/25 18:43 04:25 WBC 4.6 RBC 3.48 L Hgb 9.8 L Hct 30.5 L MCV 88 MCH 28.2 MCHC 32.1 RDW Std Deviation 63.2 H Plt Count 237 D Neut % (Auto) 41 Lymph % (Auto) 45 Avery % (Auto) 12 Eos % (Auto) 1 Baso % (Auto) 1 Neut # (Auto) 1.9 Lymph # (Auto) 2.1 Avery # (Auto) 0.6 Eos # (Auto) 0.1 Baso # (Auto) 0.0 Immature Gran # (Auto) 0.01 H Absolute Nucleated RBC 0.00 Immature Gran % 0 Nucleated RBC % 0 Sodium 141 Potassium 3.8 Chloride 104 Carbon Dioxide 25.7 Anion Gap 11 BUN 8 L Creatinine 0.8 Estim Creat Clear Calc 120.9 eGFR > 60 BUN/Creatinine Ratio 10 L Glucose 75 Calculated Osmolality 278 Calcium 8.4 Corrected Calcium 8.4 L Phosphorus 4.5 Magnesium 2.0 Total Bilirubin 0.7 AST 29 ALT 21 Alkaline Phosphatase 114 D Ammonia 13 Total Protein 6.8 Albumin 4.1 D Globulin 2.7 Albumin/Globulin Ratio 1.5 Quality Measures Quality Measures none Assessment & Plan Assessment Current Active Medications: Generic Name Dose Route Start Last Admin Trade Name Freq PRN Reason Stop Dose Admin Acetaminophen 325 mg 01/12/25 09:41 01/12/25 12:22 Acetaminophen 325 Mg Tablet PO 02/11/25 09:40 325 mg Q4HR PRN Administration PainScale 1-6/10 or fever >100 Hydrocodone Bitart/Acetaminophen 1 tab 01/12/25 09:41 01/13/25 08:54 Hydrocodone/Apap 5/325 Tablet PO 01/17/25 09:40 1 tab Q4HR PRN Administration severe pain 7-1010 Chlordiazepoxide HCl 25 mg 01/13/25 14:00 Chlordiazepoxide Hcl 25 Mg Capsule PO 01/14/25 13:59 TID APOORVA Folic Acid 1 mg 01/12/25 10:00 01/13/25 08:47 Folic Acid Inj 1 Mg/0.2 Ml IVP 01/15/25 09:59 1 mg QDAY APOORVA Administration Heparin Sodium (Porcine) 5,000 unit 01/12/25 21:00 01/13/25 08:47 Heparin Sod Inj 5000 Unit/Ml Vial SC 01/26/25 20:59 5,000 unit BID APOORVA Administration Lorazepam 0.5 mg 01/12/25 08:05 01/12/25 20:25 Lorazepam 0.5 Mg Tablet PO 01/17/25 08:04 0.5 mg Q4HR PRN Administration CIWA Score 2-6 Lorazepam 1 mg 01/12/25 08:05 01/13/25 05:02 Lorazepam 0.5 Mg Tablet PO 01/17/25 08:04 1 mg Q4HR PRN Administration CIWA SCORE 7-11 Lorazepam 1 mg 01/12/25 12:56 Lorazepam 2 Mg/Ml Vial IVP 01/17/25 12:55 Q4H PRN ciwa 12-18 Lorazepam 2 mg 01/12/25 12:56 Lorazepam 2 Mg/Ml Vial IVP 01/17/25 12:55 Q4H PRN CIWA 19-25 Melatonin 6 mg 01/12/25 21:00 01/12/25 20:25 Melatonin 3 Mg Tablet PO 02/11/25 20:59 6 mg HS APOORVA Administration Thiamine HCl 100 mg 01/12/25 10:00 01/13/25 08:47 Thiamine 100 Mg Tablet PO 02/11/25 09:59 100 mg BID APOORVA Administration Plan Mr. Ybarra is a 29 y/o male with PMH cirrhosis and esophageal varices 2/2 EtOH use disorder who presented to the ED on 01/11/2025 with episode of alcohol use and apparently falling near a bridge and hitting his head. #Alcohol use disorder #Alcohol withdrawal symptoms #Acute encephalopathy Patient was brought in by neighbor who found him to be lying on the floor, deeply lethargic. Patient somnolent upon presentation. Complaining of auditory and visual hallucinations, present tremors, diaphoresis, but no signs concerning for seizure. EKG showed NSR. CT head negative. U ethyl alcohol 396.4, blood ethanol 492, although patient states he has not had more than 3 beers yesterday. Plan: - Ativan PO 1mg Q4h CIWA 7-11, IV 1mg for CIWA 12-18, and IV 2mg Q4h PRN CIWA 19-25 - Librium p.o. 25 mg TID down from 50mg TID as pt has been showing improvement -Thiamine p.o. 100 mg twice daily - Folic acid IV 1mg Qday - Zofran IV 4 mg PRN - oral rehydration Q1h for 3h (complete) - counselled on alcohol cessation; foster care social worker to provide resources. #hx of hepatic insufficiency #hx of esophageal varices #Cholelithiasis Pt reports RUQ pain and tenderness on exam. AST 52, ALT 30, ALP 166 (H) MELD-Na score 6 corresponding to 1.9% of mortality within the next 6 mo. Maddrey's score 0.3 (<32): Indicating good prognosis Previous US GB had shown steatohepatitis. CTAP (12/17) had shown liver irregular in contour Abdominal ultrasound was negative for ascites GB ultrasound showed Liver 16.2 cm smooth contour. 7 mm gallstone Gallbladder wall 0.4 cm with possible edema Common bile duct 0.3 cm ammonia 13. Patient has RUQ tenderness on PE -will order MRCP to rule out gallstone related pathologies. #Hx soft tissue abscess anterior to C7 vertebral body - resolved Afebrile, no leukocytosis, procal unremarkable C spine MRI 12/13: negative for abscess, fracture, mass, disc herniation, cord impingement, cord signal abnormality or high grade neural foraminal stenosis Plan: - F/U outpatient with ENT if symptoms return #Depression Plan: - Will resume Buspar 7.5 mg BID (home med) once off of withdrawal benzodiazepines #Hypothyroidism TSH 0.32, free T31.9 Health Maintenance: Disposition: Telemetry Diet: Low-sodium PPx DVT: heparin SC 5000u bid Code Status: Routine This case was discussed with my attending physician, Dr. Aguilar, and senior resident, Dr Conley. Even though this this note was carefully revised there may still be minor errors in financial coach due to voice recognition software. Zak Abebe DO PGY I Attending Provider Attestation/Addendum I have discussed and was present for the essential components of the history, physical examination, diagnosis, and treatment plan with the resident. I agree with the patient's care as documented by the resident and amended herein by me. Deni Aguilar DO. Although this document has been carefully reviewed, there may still be some phonetic and other typographical errors. These errors are purely grammatical due to imperfections in the software program and should not be construed in any way to compromise the substance of the patient's medical care during this visit.
[2025-01-13] MEDS: MELATONIN 3 MG TABLET 6 MG PO (21:23)
[2025-01-14] VITALS: BP 144/66; PULSE 71; PULSE 72; RESP 14; TEMP 36.2; O2SAT 97
--- NOTE | 2025-01-14 | XR_ITS ---
MRI abdomen, without contrast. MRCP Date and time of exam: January 14, 2025, 1129 hours INDICATIONS: Alcohol: Withdrawal, abdominal pain this week, 7 mm gallstone, gallbladder wall thickened on abdomen sonogram January 12, 2025 Technique: Multiple axial and coronal images of the abdomen have been obtained with the Siemens 1.5T MRI scanner. Images obtained included T1 weighted transverse images, T2-weighted transverse images, T2-weighted transverse images fat-suppressed, T2 weighted haste fat suppressed transverse images, T1 weighted images, in and out of phase images, T2-weighted coronal images, breath hold, T2 weighted haze coronal images as well as T2 weighted coronal thick slab images, MRCP. Findings: No focal liver lesion Gallstones are not depicted on this study There is no gallbladder wall thickening Common bile duct Common hepatic duct 2 to 3 mm no stones Spleen not enlarged No pancreatic edema No hydronephrosis No ascites IMPRESSION: No gallstones are depicted on this study Normal gallbladder wall Normal common hepatic duct common bile duct
[2025-01-14] MEDS: HYDROcodone/APAP 5/325 TABLET 1 TAB PO ×5 (00:06→21:23)
[2025-01-14] MEDS: ACETAMINOPHEN 325 MG TABLET PO (02:25)
[2025-01-14 04:00] VITALS: BP 123/74; PULSE 65; PULSE 67; RESP 17; TEMP 36.3; O2SAT 97
[2025-01-14 05:58] VITALS: BMI 26.8
[2025-01-14 06:39] LABS: Basophils # (Auto) 0.0 Thou/mm3 (0.0-0.2); Basophils % (Auto) 1 % (0-2.5); Eosinophils # (Auto) 0.1 Thou/mm3 (0.0-0.5); Eosinophils % (Auto) 2 % (0-10); Hematocrit 32.7 % (41.0-53.0); Hemoglobin 10.6 g/dL (13.5-16.0); Immature Granulocytes Auto 0.00 Thou/mm3 (0.00-0.00); Lymphocytes # (Auto) 1.7 Thou/mm3 (1.0-4.8); Lymphocytes % (Auto) 54 % (10-50); Mean Corpuscular HGB Conc 32.4 g/dl (31.0-37.0); Mean Corpuscular Hemoglobin 27.9 pg (25.0-35.0); Mean Corpuscular Volume 86 fL (80-100); Monocytes # (Auto) 0.4 Thou/mm3 (0.0-0.8); Monocytes % (Auto) 14 % (0-12); Neutrophils # (Auto) 1.0 Thou/mm3 (1.8-7.7); Neutrophils % (Auto) 30 % (37-80); Nucleated Red Blood Cell # 0.00 Thou/mm3 (0.00-0.00); Nucleated Red Blood Cell % 0 /100 WBC (0); Platelet Count 225 Thou/mm3 (140-440); RDW Standard Deviation 61.4 fL (35.1-43.9); Red Blood Count 3.80 Miln/mm3 (4.50-5.90); White Blood Count 3.2 Thou/mm3 (3.8-10.6)
[2025-01-14 07:20] LABS: Alanine Aminotransferase 18 U/L (10-49); Albumin, Serum 3.9 gm/dL (3.5-5.0); Albumin/Globulin Ratio 1.5 (1.2-2.2); Alkaline Phosphatase 117 U/L (46-116); Anion Gap 9 (7-16); Aspartate Amino Transferase 29 U/L (0-34); BUN/Creatinine Ratio 8 Ratio (12-20); Bilirubin,Total 0.5 mg/dL (0.3-1.2); Blood Urea Nitrogen 6 mg/dL (9-23); Calcium 8.8 mg/dL (8.3-10.6); Calcium (Corrected) 8.9 mg/dL (8.5-10.1); Carbon Dioxide 27.7 mMol/L (20.0-31.0); Chloride 103 mMol/L (98-107); Creatinine (Component) 0.8 mg/dL (0.6-1.3); Estimated Creatinine Clearance 120.9 mL/min (>60); Globulin 2.6 gm/dL (2.3-3.5); Glucose 109 mg/dL (74-106); Magnesium 1.6 mg/dL (1.6-2.6); Osmolality,Calculated 278 (275-295); Phosphorous 5.0 mg/dL (2.4-5.1); Potassium 3.7 mMol/L (3.4-5.1); Sodium 140 mMol/L (136-145); Total Protein 6.5 gm/dL (5.7-8.2); eGFR > 60 See Note
[2025-01-14 08:00] VITALS: BP 106/58; PULSE 67; PULSE 96; RESP 12; TEMP 36.3; O2SAT 95
--- NOTE | 2025-01-14 09:01 | PC.PT ---
Patient was approached at 0900. Patient states he was able to ambulate. He agreed no need for PT evaluation at this time. Will cancel PT evaluation.
[2025-01-14] MEDS: THIAMINE 100 MG TABLET PO ×2 (09:06→20:28)
[2025-01-14] MEDS: HEPARIN SOD INJ 5000 UNIT/ML VIAL SC ×2 (09:06→20:28)
[2025-01-14] MEDS: FOLIC ACID INJ 1 MG/0.2 ML IVP (09:22)
--- NOTE | 2025-01-14 09:51 | ESPR_ITS ---
<Statement entered by Andrea Conley MD - 01/14/25 18:04> I saw and examined patient personally and supervised PGY 1 resident, Dr. Abebe with formulating a management plan. I agree with the documentation with the exceptions as listed below. Patient underwent MRCP today which was negative for any gallstones or bile duct obstruction. Continues to be on CIWA protocol for alcohol withdrawal, Librium 25 mg p.o. 3 times daily scheduled. Patient is now amenable to inpatient rehab upon discharge. Plan of care discussed with Attending Dr. Jeff Conley MD PGY 2 Disclaimer: This note was dictated by speech recognition. Minor errors in manager placement may be present due to voice recognition software. Documentation for date of: 01/14/25 Subjective Subjective Interval history: Patient was seen and examined at bedside. No acute events took place overnight. Patient admits to anxiety, agitation, visual hallucination (seeing figures), diaphoresis, headache, itching/poking in different areas of the body. Denies nausea, vomiting, auditory hallucinations. CIWA 5-8 overnight and 7 at 6 AM. Patient has been getting Ativan 1 mg every 4 hours. Patient was feeling dizzy while sitting in bathroom yesterday, ordered bedrest and PT evaluation. Patient admits to right upper quadrant pain, and in the light of supportive imaging for cholecystitis, we will try and obtain MRCP. Exam Vital Signs Temp Pulse Resp BP Pulse Ox O2 Del Method 97.3 F 67 12 106/58 L 95 Room Air 01/14/25 08:00 01/14/25 08:00 01/14/25 08:00 01/14/25 08:00 01/14/25 08:00 01/14/25 08:00 Narrative Exam General: Patient lethargic, opens his eyes to loud calls of his name, but falls back to sleep. Skin: Intact, Warm, no rashes. HEENT: Normocephalic, Atraumatic. Normal neck range of motion, Supple. Trachea midline. Respiratory: Lungs are clear to auscultation. Breath sounds are equal bilaterally with good, symmetric chest expansion. Cardiovascular: RRR, normal S1, S2, No murmurs. Distal pulses 2+ Abdomen: Abdomen non-distended, without erythema, or lesions. Diminished bowel sounds. Percussion tympanic. Palpation soft, tender in RUQ. No organomagely. Absent rigidity, guarding, or rebound. Musculoskeletal/Extremities: No erythema, swelling, tenderness of any joints. No edema of BLE. DP pulses +2/3 b/l. Full active ROM of all four extremities. Neurologic: NEURO: Oriented x3, cranial nerves II to XII grossly intact. Muscle strength 5/5 on UE and LE b/l, Moves extremities x4. Sensation intact to gross touch along C6-T1 and L2-S1 dermatomes. No focal neurologic deficits noted Psych: Thoughts linear and responses appropriate. Objective Labs 01/14/25 06:18 01/14/25 06:18 Labs: Laboratory Results - last 24 hr 01/14/25 06:18 WBC 3.2 L RBC 3.80 L Hgb 10.6 L Hct 32.7 L MCV 86 MCH 27.9 MCHC 32.4 RDW Std Deviation 61.4 H Plt Count 225 Neut % (Auto) 30 L Lymph % (Auto) 54 H Harris % (Auto) 14 H Eos % (Auto) 2 Baso % (Auto) 1 Neut # (Auto) 1.0 L Lymph # (Auto) 1.7 Harris # (Auto) 0.4 Eos # (Auto) 0.1 Baso # (Auto) 0.0 Immature Gran # (Auto) 0.00 Absolute Nucleated RBC 0.00 Immature Gran % 0 Nucleated RBC % 0 Sodium 140 Potassium 3.7 Chloride 103 Carbon Dioxide 27.7 Anion Gap 9 BUN 6 L Creatinine 0.8 Estim Creat Clear Calc 120.9 eGFR > 60 BUN/Creatinine Ratio 8 L Glucose 109 H Calculated Osmolality 278 Calcium 8.8 Corrected Calcium 8.9 Phosphorus 5.0 Magnesium 1.6 Total Bilirubin 0.5 AST 29 ALT 18 Alkaline Phosphatase 117 H Total Protein 6.5 Albumin 3.9 Globulin 2.6 Albumin/Globulin Ratio 1.5 Quality Measures Quality Measures none Assessment & Plan Assessment Current Active Medications: Generic Name Dose Route Start Last Admin Trade Name Freq PRN Reason Stop Dose Admin Acetaminophen 325 mg 01/12/25 09:41 01/14/25 02:25 Acetaminophen 325 Mg Tablet PO 02/11/25 09:40 325 mg Q4HR PRN Administration PainScale 1-6/10 or fever >100 Hydrocodone Bitart/Acetaminophen 1 tab 01/12/25 09:41 01/14/25 06:08 Hydrocodone/Apap 5/325 Tablet PO 01/17/25 09:40 1 tab Q4HR PRN Administration severe pain 7-11/16 Chlordiazepoxide HCl 25 mg 01/13/25 14:00 01/14/25 05:22 Chlordiazepoxide Hcl 25 Mg Capsule PO 01/14/25 13:59 25 mg TID APOORVA Administration Folic Acid 1 mg 01/12/25 10:00 01/14/25 09:22 Folic Acid Inj 1 Mg/0.2 Ml IVP 01/15/25 09:59 1 mg QDAY APOORVA Administration Heparin Sodium (Porcine) 5,000 unit 01/12/25 21:00 01/14/25 09:06 Heparin Sod Inj 5000 Unit/Ml Vial SC 01/26/25 20:59 5,000 unit BID APOORVA Administration Lorazepam 0.5 mg 01/12/25 08:05 01/14/25 09:21 Lorazepam 0.5 Mg Tablet PO 01/17/25 08:04 0.5 mg Q4HR PRN Administration CIWA Score 2-6 Lorazepam 1 mg 01/12/25 08:05 01/14/25 06:29 Lorazepam 0.5 Mg Tablet PO 01/17/25 08:04 1 mg Q4HR PRN Administration CIWA SCORE 7-11 Lorazepam 1 mg 01/12/25 12:56 Lorazepam 2 Mg/Ml Vial IVP 01/17/25 12:55 Q4H PRN ciwa 12-18 Lorazepam 2 mg 01/12/25 12:56 Lorazepam 2 Mg/Ml Vial IVP 01/17/25 12:55 Q4H PRN CIWA 19-25 Melatonin 6 mg 01/12/25 21:00 01/13/25 21:23 Melatonin 3 Mg Tablet PO 02/11/25 20:59 6 mg HS APOORVA Administration Thiamine HCl 100 mg 01/12/25 10:00 01/14/25 09:06 Thiamine 100 Mg Tablet PO 02/11/25 09:59 100 mg BID APOORVA Administration Plan Mr. Ybarra is a 29 y/o male with PMH cirrhosis and esophageal varices 2/2 EtOH use disorder who presented to the ED on 01/11/2025 with episode of alcohol use and apparently falling near a bridge and hitting his head. #Alcohol use disorder #Alcohol withdrawal symptoms #Acute encephalopathy Patient was brought in by neighbor who found him to be lying on the floor, deeply lethargic. Patient somnolent upon presentation. Complaining of auditory and visual hallucinations, present tremors, diaphoresis, but no signs concerning for seizure. EKG showed NSR. CT head negative. U ethyl alcohol 396.4, blood ethanol 492, although patient states he has not had more than 3 beers yesterday. Plan: - Ativan PO 1mg Q4h CIWA 7-11, IV 1mg for CIWA 12-18, and IV 2mg Q4h PRN CIWA 19-25 - Librium p.o. 25 mg TID down from 50mg TID as pt has been showing improvement -Thiamine p.o. 100 mg twice daily - Folic acid IV 1mg Qday - Zofran IV 4 mg PRN - oral rehydration Q1h for 3h (complete) - counselled on alcohol cessation; social worker delinquency prevention to provide resources. #hx of hepatic insufficiency #hx of esophageal varices #Cholelithiasis Pt reports RUQ pain and tenderness on exam. AST 52, ALT 30, ALP 166 (H) MELD-Na score 6 corresponding to 1.9% of mortality within the next 6 mo. Maddrey's score 0.3 (<32): Indicating good prognosis Previous US GB had shown steatohepatitis. CTAP (12/17) had shown liver irregular in contour Abdominal ultrasound was negative for ascites GB ultrasound showed Liver 16.2 cm smooth contour. 7 mm gallstone Gallbladder wall 0.4 cm with possible edema Common bile duct 0.3 cm ammonia 13. Patient has RUQ tenderness on PE MRCP showed no gallstones. Normal gallbladder wall. Normal common hepatic duct and CBD. #Hx soft tissue abscess anterior to C7 vertebral body - resolved Afebrile, no leukocytosis, procal unremarkable C spine MRI 12/13: negative for abscess, fracture, mass, disc herniation, cord impingement, cord signal abnormality or high grade neural foraminal stenosis Plan: - F/U outpatient with ENT if symptoms return #Depression Plan: - Will resume Buspar 7.5 mg BID (home med) once off of withdrawal benzodiazepines #Hypothyroidism TSH 0.32, free T31.9 Health Maintenance: Disposition: Telemetry Diet: Low-sodium PPx DVT: heparin SC 5000u bid Code Status: Routine This case was discussed with my attending physician, Dr. Aguilar, and senior resident, Dr Conley. Even though this this note was carefully revised there may still be minor errors in manager placement due to voice recognition software. Zak Abebe DO PGY I Attending Provider Attestation/Addendum I have discussed and was present for the essential components of the history, physical examination, diagnosis, and treatment plan with the resident. I agree with the patient's care as documented by the resident and amended herein by me. Deni Aguilar DO. Although this document has been carefully reviewed, there may still be some phonetic and other typographical errors. These errors are purely grammatical due to imperfections in the software program and should not be construed in any way to compromise the substance of the patient's medical care during this visit.
--- NOTE | 2025-01-14 10:07 | PC.SS ---
Follow up note: Pt is on CWAL Protocol.
[2025-01-14 12:00] VITALS: BP 114/71; PULSE 75; RESP 13; TEMP 36.6; O2SAT 94
[2025-01-14] MEDS: LORazepam 2 MG/ML VIAL IVP ×2 (12:39→18:24)
[2025-01-14] MEDS: DIAZEPAM INJ 5 MG/ML VIAL 2 ML IVP (15:09)
--- NOTE | 2025-01-14 15:22 | PC.SS ---
SS met with pt and bedside nurse, Mireya was present and provided him with phone#s to [facility]. Pt states he has already made contact them and has been placed on waiting list (4th person list) and is waiting for bed to be available. SS provided pt with [facility] with their phone# to follow up.
[2025-01-14 16:00] VITALS: BP 114/67; PULSE 72; PULSE 81; RESP 12; TEMP 36.4; O2SAT 96
[2025-01-14 20:00] VITALS: BP 110/79; PULSE 90; RESP 17; TEMP 36.4; O2SAT 96
[2025-01-14] MEDS: MELATONIN 3 MG TABLET 6 MG PO (20:28)
[2025-01-14] MEDS: LORazepam 2 MG/ML VIAL 1 MG IVP (22:44)
[2025-01-15] VITALS: BP 109/70; PULSE 87; RESP 16; TEMP 36.1; O2SAT 94
[2025-01-15 04:00] VITALS: BP 109/66; PULSE 68; RESP 18; TEMP 36.1; O2SAT 96
[2025-01-15 05:13] LABS: Basophils # (Auto) 0.0 Thou/mm3 (0.0-0.2); Basophils % (Auto) 1 % (0-2.5); Eosinophils # (Auto) 0.1 Thou/mm3 (0.0-0.5); Eosinophils % (Auto) 3 % (0-10); Hematocrit 33.6 % (41.0-53.0); Hemoglobin 10.5 g/dL (13.5-16.0); Immature Granulocytes Auto 0.01 Thou/mm3 (0.00-0.00); Lymphocytes # (Auto) 1.6 Thou/mm3 (1.0-4.8); Lymphocytes % (Auto) 53 % (10-50); Mean Corpuscular HGB Conc 31.3 g/dl (31.0-37.0); Mean Corpuscular Hemoglobin 27.3 pg (25.0-35.0); Mean Corpuscular Volume 87 fL (80-100); Monocytes # (Auto) 0.5 Thou/mm3 (0.0-0.8); Monocytes % (Auto) 18 % (0-12); Neutrophils # (Auto) 0.8 Thou/mm3 (1.8-7.7); Neutrophils % (Auto) 26 % (37-80); Nucleated Red Blood Cell # 0.00 Thou/mm3 (0.00-0.00); Nucleated Red Blood Cell % 0 /100 WBC (0); Platelet Count 196 Thou/mm3 (140-440); RDW Standard Deviation 62.4 fL (35.1-43.9); Red Blood Count 3.85 Miln/mm3 (4.50-5.90); White Blood Count 3.0 Thou/mm3 (3.8-10.6)
[2025-01-15 05:44] VITALS: BMI 26.2
[2025-01-15 05:58] LABS: Alanine Aminotransferase 22 U/L (10-49); Albumin, Serum 4.2 gm/dL (3.5-5.0); Albumin/Globulin Ratio 1.6 (1.2-2.2); Alkaline Phosphatase 116 U/L (46-116); Anion Gap 10 (7-16); Aspartate Amino Transferase 34 U/L (0-34); BUN/Creatinine Ratio 6 Ratio (12-20); Bilirubin,Total 0.4 mg/dL (0.3-1.2); Blood Urea Nitrogen 5 mg/dL (9-23); Calcium 9.0 mg/dL (8.3-10.6); Calcium (Corrected) 9.0 mg/dL (8.5-10.1); Carbon Dioxide 28.2 mMol/L (20.0-31.0); Chloride 103 mMol/L (98-107); Creatinine (Component) 0.9 mg/dL (0.6-1.3); Estimated Creatinine Clearance 99.2 mL/min (>60); Globulin 2.7 gm/dL (2.3-3.5); Glucose 113 mg/dL (74-106); Magnesium 1.7 mg/dL (1.6-2.6); Osmolality,Calculated 279 (275-295); Phosphorous 4.8 mg/dL (2.4-5.1); Potassium 3.8 mMol/L (3.4-5.1); Sodium 141 mMol/L (136-145); Total Protein 6.9 gm/dL (5.7-8.2); eGFR > 60 See Note
[2025-01-15 08:00] VITALS: BP 120/69; PULSE 65; PULSE 70; RESP 19; TEMP 36.6; O2SAT 97
[2025-01-15] MEDS: FOLIC ACID INJ 1 MG/0.2 ML IVP (08:24)
[2025-01-15] MEDS: HEPARIN SOD INJ 5000 UNIT/ML VIAL SC ×2 (08:24→20:28)
[2025-01-15] MEDS: THIAMINE 100 MG TABLET PO ×2 (08:25→20:27)
[2025-01-15 10:20] VITALS: BMI 26.2
[2025-01-15] MEDS: IBUPROFEN TAB 400 MG TABLET PO (11:11)
[2025-01-15 12:00] VITALS: BP 114/70; PULSE 75; PULSE 78; RESP 14; TEMP 36.3; O2SAT 97
--- NOTE | 2025-01-15 13:57 | PC.NURSE ---
patient still complaining of itching and severe headache, called dr. miller and made aware.
[2025-01-15] MEDS: LORazepam 2 MG/ML VIAL 1 MG IVP (14:05)
--- NOTE | 2025-01-15 14:43 | ESPR_ITS ---
<Statement entered by Andrea Conley MD - 01/15/25 15:43> I saw and examined patient personally and supervised PGY 1 resident, Dr. Abebe with formulating a management plan. I agree with the documentation with the exceptions as listed below. Patient CIWA scores much improved today at 8 from 24. We decreased his Librium to 25 twice daily from 3 times daily and placed Ativan 0.5 mg p.o. at bedtime for insomnia. Patient is agreeable to checking himself into rehab upon discharge from the hospital. Once his CIWA continues to improve anticipate discharge within next 24 to 48 hours. Plan of care discussed with Attending Dr. Tiffany Conley MD PGY 2 Disclaimer: This note was dictated by speech recognition. Minor errors in gutter mouth cutter may be present due to voice recognition software. Documentation for date of: 01/15/25 Subjective Subjective Interval history: Patient was seen and examined at bedside. No acute events took place overnight. Patient admits to anxiety, agitation, visual hallucination (seeing figures), diaphoresis, headache, itching/poking in different areas of the body, and dizziness, and insomnia. Denies nausea, vomiting, auditory hallucinations. CIWA 5-13 overnight. CIWA 10 this AM. Patient has was given Ativan 1 mg. Continues to have right upper quadrant abdominal pain and tenderness, and in the light of previous history of BPH, and negative MRCP, more likely related to steatohepatitis. Exam Vital Signs Temp Pulse Resp BP Pulse Ox O2 Del Method 97.3 F 78 14 114/70 97 Room Air 01/15/25 12:00 01/15/25 12:00 01/15/25 12:00 01/15/25 12:00 01/15/25 12:00 01/15/25 12:00 Narrative Exam General: Patient lethargic, opens his eyes to loud calls of his name, but falls back to sleep. Skin: Intact, Warm, no rashes. HEENT: Normocephalic, Atraumatic. Normal neck range of motion, Supple. Trachea midline. Respiratory: Lungs are clear to auscultation. Breath sounds are equal bilaterally with good, symmetric chest expansion. Cardiovascular: RRR, normal S1, S2, No murmurs. Distal pulses 2+ Abdomen: Abdomen non-distended, without erythema, or lesions. Diminished bowel sounds. Percussion tympanic. Palpation soft, tender in RUQ. No organomagely. Absent rigidity, guarding, or rebound. Musculoskeletal/Extremities: No erythema, swelling, tenderness of any joints. No edema of BLE. DP pulses +2/3 b/l. Full active ROM of all four extremities. Neurologic: NEURO: Oriented x3, cranial nerves II to XII grossly intact. Muscle strength 5/5 on UE and LE b/l, Moves extremities x4. Sensation intact to gross touch along C6-T1 and L2-S1 dermatomes. No focal neurologic deficits noted Psych: Thoughts linear and responses appropriate. Objective Labs 01/15/25 04:27 01/15/25 04:27 Labs: Laboratory Results - last 24 hr 01/15/25 04:27 WBC 3.0 L RBC 3.85 L Hgb 10.5 L Hct 33.6 L MCV 87 MCH 27.3 MCHC 31.3 RDW Std Deviation 62.4 H Plt Count 196 Neut % (Auto) 26 L Lymph % (Auto) 53 H [place] % (Auto) 18 H Eos % (Auto) 3 Baso % (Auto) 1 Neut # (Auto) 0.8 L Lymph # (Auto) 1.6 [place] # (Auto) 0.5 Eos # (Auto) 0.1 Baso # (Auto) 0.0 Immature Gran # (Auto) 0.01 H Absolute Nucleated RBC 0.00 Immature Gran % 0 Nucleated RBC % 0 Sodium 141 Potassium 3.8 Chloride 103 Carbon Dioxide 28.2 Anion Gap 10 BUN 5 L Creatinine 0.9 Estim Creat Clear Calc 99.2 eGFR > 60 BUN/Creatinine Ratio 6 L Glucose 113 H Calculated Osmolality 279 Calcium 9.0 Corrected Calcium 9.0 Phosphorus 4.8 Magnesium 1.7 Total Bilirubin 0.4 AST 34 ALT 22 Alkaline Phosphatase 116 Total Protein 6.9 Albumin 4.2 Globulin 2.7 Albumin/Globulin Ratio 1.6 Quality Measures Quality Measures none Assessment & Plan Assessment Current Active Medications: Generic Name Dose Route Start Last Admin Trade Name Freq PRN Reason Stop Dose Admin Acetaminophen 325 mg 01/12/25 09:41 01/14/25 02:25 Acetaminophen 325 Mg Tablet PO 02/11/25 09:40 325 mg Q4HR PRN Administration PainScale 1-6/10 or fever >100 Chlordiazepoxide HCl 25 mg 01/15/25 21:00 Chlordiazepoxide Hcl 25 Mg Capsule PO 01/20/25 20:59 BID APOORVA Heparin Sodium (Porcine) 5,000 unit 01/12/25 21:00 01/15/25 08:24 Heparin Sod Inj 5000 Unit/Ml Vial SC 01/26/25 20:59 5,000 unit BID APOORVA Administration Lorazepam 0.5 mg 01/12/25 08:05 01/14/25 09:21 Lorazepam 0.5 Mg Tablet PO 01/17/25 08:04 0.5 mg Q4HR PRN Administration CIWA Score 2-6 Lorazepam 1 mg 01/12/25 08:05 01/15/25 11:21 Lorazepam 0.5 Mg Tablet PO 01/17/25 08:04 1 mg Q4HR PRN Administration CIWA SCORE 7-11 Lorazepam 2 mg 01/12/25 12:56 01/14/25 18:24 Lorazepam 2 Mg/Ml Vial IVP 01/17/25 12:55 2 mg Q4H PRN Administration CIWA 19-25 Lorazepam 0.5 mg 01/15/25 21:00 Lorazepam 0.5 Mg Tablet PO 01/20/25 20:59 HS APOORVA Melatonin 6 mg 01/12/25 21:00 01/14/25 20:28 Melatonin 3 Mg Tablet PO 02/11/25 20:59 6 mg HS APOORVA Administration Thiamine HCl 100 mg 01/12/25 10:00 01/15/25 08:25 Thiamine 100 Mg Tablet PO 02/11/25 09:59 100 mg BID APOORVA Administration Plan Mr. Ybarra is a 29 y/o male with PMH cirrhosis and esophageal varices 2/2 EtOH use disorder who presented to the ED on 01/11/2025 with episode of alcohol use and apparently falling near a bridge and hitting his head. #Alcohol use disorder #Alcohol withdrawal symptoms #Acute encephalopathy Patient was brought in by neighbor who found him to be lying on the floor, deeply lethargic. Patient somnolent upon presentation. Complaining of auditory and visual hallucinations, present tremors, diaphoresis, but no signs concerning for seizure. EKG showed NSR. CT head negative. U ethyl alcohol 396.4, blood ethanol 492, although patient states he has not had more than 3 beers yesterday. Plan: - Ativan PO 1mg Q4h CIWA 7-11, IV 1mg for CIWA 12-18, and IV 2mg Q4h PRN CIWA 19-25 - Librium p.o. 25 mg BID down from TID as pt has been showing improvement - Thiamine p.o. 100 mg twice daily - Folic acid IV 1mg Qday - Zofran IV 4 mg PRN - oral rehydration Q1h for 3h (complete) - counselled on alcohol cessation; psychosocial rehabilitation counselor to provide resources. #hx of hepatic insufficiency #hx of esophageal varices #Cholelithiasis Pt reports RUQ pain and tenderness on exam. AST 52, ALT 30, ALP 166 (H) MELD-Na score 6 corresponding to 1.9% of mortality within the next 6 mo. Maddrey's score 0.3 (<32): Indicating good prognosis Previous US GB had shown steatohepatitis. CTAP (12/17) had shown liver irregular in contour Abdominal ultrasound was negative for ascites GB ultrasound showed Liver 16.2 cm smooth contour. 7 mm gallstone Gallbladder wall 0.4 cm with possible edema Common bile duct 0.3 cm ammonia 13. Patient has RUQ tenderness on PE MRCP showed no gallstones. Normal gallbladder wall. Normal common hepatic duct and CBD. T bili 0.4 WNL -supportive care with pain meds as liver function appears to be stable at this time #Hx soft tissue abscess anterior to C7 vertebral body - resolved Afebrile, no leukocytosis, procal unremarkable C spine MRI 12/13: negative for abscess, fracture, mass, disc herniation, cord impingement, cord signal abnormality or high grade neural foraminal stenosis Plan: - F/U outpatient with ENT if symptoms return #Depression Plan: - Will resume Buspar 7.5 mg BID (home med) once off of withdrawal benzodiazepines #Hypothyroidism TSH 0.32, free T31.9 Health Maintenance: Disposition: Telemetry Diet: Low-sodium PPx DVT: heparin SC 5000u bid Code Status: Routine This case was discussed with my attending physician, Dr. Allen, and senior resident, Dr Conley. Even though this this note was carefully revised there may still be minor errors in gutter mouth cutter due to voice recognition software. Zak Abebe, PGY I Attending Provider Attestation/Addendum Patient admitted for alcohol withdrawal. She has liver cirrhosis. He asked for additional dose of Ativan around noon time. Hemoglobin is stable. I discussed with and supervised the resident physician who took care of this patient. I agree with the assessment and plan as above.
[2025-01-15 16:00] VITALS: BP 114/70; PULSE 67; PULSE 78; RESP 14; TEMP 36.2; O2SAT 96
[2025-01-15] MEDS: KETOROLAC INJ 30 MG/ML VIAL IVP (16:59)
[2025-01-15] MEDS: ACETAMINOPHEN 325 MG TABLET PO (18:40)
[2025-01-15 20:00] VITALS: BP 121/71; PULSE 71; RESP 19; TEMP 36.3; O2SAT 97
[2025-01-15] MEDS: MELATONIN 3 MG TABLET 6 MG PO (20:27)
[2025-01-15] MEDS: ACETAMINOPHEN 325 MG TABLET 650 MG PO (20:28)
[2025-01-16] VITALS: PULSE 62
[2025-01-16] MEDS: ACETAMINOPHEN 325 MG TABLET PO (00:24)
[2025-01-16 04:00] VITALS: BP 93/67; PULSE 51; PULSE 57; RESP 16; TEMP 36.5; O2SAT 98
[2025-01-16 06:02] LABS: Basophils # (Auto) 0.0 Thou/mm3 (0.0-0.2); Basophils % (Auto) 1 % (0-2.5); Eosinophils # (Auto) 0.1 Thou/mm3 (0.0-0.5); Eosinophils % (Auto) 3 % (0-10); Hematocrit 34.5 % (41.0-53.0); Hemoglobin 11.1 g/dL (13.5-16.0); Immature Granulocytes Auto 0.01 Thou/mm3 (0.00-0.00); Lymphocytes # (Auto) 1.4 Thou/mm3 (1.0-4.8); Lymphocytes % (Auto) 39 % (10-50); Mean Corpuscular HGB Conc 32.2 g/dl (31.0-37.0); Mean Corpuscular Hemoglobin 27.6 pg (25.0-35.0); Mean Corpuscular Volume 86 fL (80-100); Monocytes # (Auto) 0.4 Thou/mm3 (0.0-0.8); Monocytes % (Auto) 12 % (0-12); Neutrophils # (Auto) 1.6 Thou/mm3 (1.8-7.7); Neutrophils % (Auto) 45 % (37-80); Nucleated Red Blood Cell # 0.00 Thou/mm3 (0.00-0.00); Nucleated Red Blood Cell % 0 /100 WBC (0); Platelet Count 238 Thou/mm3 (140-440); RDW Standard Deviation 60.1 fL (35.1-43.9); Red Blood Count 4.02 Miln/mm3 (4.50-5.90); White Blood Count 3.6 Thou/mm3 (3.8-10.6)
[2025-01-16 06:33] LABS: Alanine Aminotransferase 31 U/L (10-49); Albumin, Serum 4.5 gm/dL (3.5-5.0); Albumin/Globulin Ratio 1.7 (1.2-2.2); Alkaline Phosphatase 123 U/L (46-116); Anion Gap 13 (7-16); Aspartate Amino Transferase 47 U/L (0-34); BUN/Creatinine Ratio 10 Ratio (12-20); Bilirubin,Total 0.4 mg/dL (0.3-1.2); Blood Urea Nitrogen 8 mg/dL (9-23); Calcium 9.2 mg/dL (8.3-10.6); Calcium (Corrected) 9.2 mg/dL (8.5-10.1); Carbon Dioxide 23.3 mMol/L (20.0-31.0); Chloride 105 mMol/L (98-107); Creatinine (Component) 0.8 mg/dL (0.6-1.3); Estimated Creatinine Clearance 116.9 mL/min (>60); Globulin 2.6 gm/dL (2.3-3.5); Glucose 105 mg/dL (74-106); Magnesium 1.8 mg/dL (1.6-2.6); Osmolality,Calculated 279 (275-295); Phosphorous 4.9 mg/dL (2.4-5.1); Potassium 3.9 mMol/L (3.4-5.1); Sodium 141 mMol/L (136-145); Total Protein 7.1 gm/dL (5.7-8.2); eGFR > 60 See Note
[2025-01-16 07:07] VITALS: BP 107/63; PULSE 63; RESP 14; TEMP 36.7; O2SAT 95
[2025-01-16 08:00] VITALS: PULSE 79
[2025-01-16] MEDS: LORazepam 2 MG/ML VIAL IVP (08:00)
[2025-01-16] MEDS: THIAMINE 100 MG TABLET PO (09:07)
[2025-01-16] MEDS: HEPARIN SOD INJ 5000 UNIT/ML VIAL SC (09:08)
--- NOTE | 2025-01-16 10:06 | PC.SS ---
Follow up note: Pt will d/c today.
[2025-01-16 11:25] VITALS: BP 119/77; PULSE 83; RESP 16; TEMP 36.9; O2SAT 96
[2025-01-16 12:00] VITALS: PULSE 95
--- NOTE | 2025-01-16 12:10 | ESDS_ITS ---
<Statement entered by Andrea Conley MD - 01/16/25 20:33> I saw and examined patient personally and supervised PGY 1 resident, Dr. Abebe with formulating a discharge plan. I agree with the documentation as listed below. Plan of care discussed with Attending Dr. Libia Conley MD PGY 2 Disclaimer: This note was dictated by speech recognition. Minor errors in prepared foods service team member may be present due to voice recognition software. Planned Discharge Date 01/16/25 DS: Providers Provider Date of admission: 01/12/25 08:51 Primary care physician: Physician No Primary/Family Admitting Provider: Sander Aguilar DO Attending Provider on Admission: Sander Aguilar DO Attending Provider on DC: Tc Reza MD Discharging Provider: Zak Abebe DO DS: Diagnosis Problem List Completed Was Problem List Reviewed/Reconciled?: Yes Hospital Course Status at Discharge Cognitive/behavioral status at discharge: Mr. Ybarra is a 29 y/o male with PMH cirrhosis and esophageal varices 2/2 EtOH use disorder who presented to the ED on 01/11/2025 with episode of alcohol use and apparently falling near a bridge and hitting his head. Initially patient was deeply lethargic, unable to answer questions addressed to him. Later he is stated that after a brief 6-day sobriety from alcohol, he developed back into drinking, admitting to 2-[address] head was negative for acute hemorrhage, mass effect, or midline shift. CT chest/abdomen/pelvis no abdominal parenchymal laceration, no free blood, osseous structures intact, thoracic and abdominal aorta intact. Patient was placed on CIWA protocol with variable dosing of IV lorazepam according to the calculated score and also started on scheduled Librium 50 mg 3 times daily. As patient admitted to abdominal tenderness especially right upper quadrant, liver ultrasound was ordered showing steatohepatitis and 7 mm gallstone. Gallbladder wall 0.4 cm with possible edema. To rule out possibility of cholecystitis, patient underwe nt MRCP which showed no gallstones. Normal gallbladder wall. And normal common hepatic duct and CBD. T. bili 0.4 WNL. As patient showed clinical improvement reflected in lowering CIWA scores, Librium was tapered down to 25 mg 3 times daily and later to 2 times daily. Initial tremors resolved. Patient hallucination about figures following him and incomprehensible voices in his ears improved markedly. Headache, dizziness, diaphoresis resolved. Patient's vital signs stayed within normal limits, and so did his CBC and CMP. Admission diagnoses: #Alcohol use disorder #Alcohol withdrawal symptoms #Acute encephalopathy #History of hepatic insufficiency #History of esophageal varices #Cholelithiasis #History of soft tissue abscess anterior to C7 vertebral body #Depression #Hypothyroidism Discharge instructions: - Take librium once a day for 2 more days for your alcohol withdrawal - Continue the medications listed below - Stop drinking alcohol. If you drink alcohol with Librium you can . - Check into Rehab - Follow up with your primary care physician within 1 week of discharge. If you do not have a primary care physician, please follow up with the [facility] Residents clinic ([phone]) ? If you experience any new, worsening or persistent symptoms either call your primary doctor, or dial 911 or present to the emergency department. This case was discussed with my attending physician, Dr. Reza, and senior resident, Dr Conley. Even though this this note was carefully revised there may still be minor errors in prepared foods service team member due to voice recognition software. Zak Abebe, PGY I Time Spent with Patient Time attestation: Total time spent providing and/or coordinating discharge services: More than 50% of the patient's total hospital stay Time spent: Greater than 30 minutes Exam Vital Signs Temp Pulse Resp BP Pulse Ox O2 Del Method 98.5 F 95 16 119/77 96 Room Air 01/16/25 11:01/16/25 12:00 01/16/25 11:01/16/25 11:01/16/25 11:01/16/25 07:07 Narrative Exam General: Patient lethargic, opens his eyes to loud calls of his name, but falls back to sleep. Skin: Intact, Warm, no rashes. HEENT: Normocephalic, Atraumatic. Normal neck range of motion, Supple. Trachea midline. Respiratory: Lungs are clear to auscultation. Breath sounds are equal bilaterally with good, symmetric chest expansion. Cardiovascular: RRR, normal S1, S2, No murmurs. Distal pulses 2+ Abdomen: Abdomen non-distended, without erythema, or lesions. Diminished bowel sounds. Percussion tympanic. Palpation soft, tender in RUQ. No organomagely. Absent rigidity, guarding, or rebound. Musculoskeletal/Extremities: No erythema, swelling, tenderness of any joints. No edema of BLE. DP pulses +2/3 b/l. Full active ROM of all four extremities. Neurologic: NEURO: Oriented x3, cranial nerves II to XII grossly intact. Muscle strength 5/5 on UE and LE b/l, Moves extremities x4. Sensation intact to gross touch along C6-T1 and L2-S1 dermatomes. No focal neurologic deficits noted Psych: Thoughts linear and responses appropriate. Discharge Plan Plan Patient Disposition: HOME (Self Care) Patient condition on transfer: Stable Care Plan Goals: - Take librium once a day for 2 more days for your alcohol withdrawal - Continue the medications listed below - Stop drinking alcohol. If you drink alcohol with Librium you can . - Check into Rehab - Follow up with your primary care physician within 1 week of discharge. If you do not have a primary care physician, please follow up with the [facility] Residents clinic ([phone]) ? If you experience any new, worsening or persistent symptoms either call your primary doctor, or dial 911 or present to the emergency department. Prescriptions/Referrals Prescriptions/Med Rec: New melatonin 3 mg Tablet 6 mg PO HS 30 Days Qty: 60 0RF thiamine mononitrate (vit B1) 100 mg Tablet 100 mg PO BID 14 Days Qty: 28 0RF chlordiazepoxide HCl 25 mg capsule 25 mg PO QDAY Qty: 2 0RF Continued pantoprazole [Protonix] 40 mg tablet,delayed release (DR/EC) 40 mg PO DAILY 30 Days Qty: 30 3RF Rx Instructions: Take one tablet by mouth twice a day Discontinued chlordiazepoxide HCl 25 mg capsule 25 mg PO Q6H Patient Comments: 25 mg orally every 6 hours As Needed for alcohol withdrawal, Max Daily Dose: 4 buspirone 7.5 mg tablet 7.5 mg PO BID Qty: 20 0RF cyclobenzaprine 5 mg tablet 5 mg PO QHS PRN (Reason: Muscle pain) 30 Days Qty: 30 1RF Rx Instructions: Take one tablet by mouth every night diphenhydramine HCl [Benadryl] 25 mg capsule 25 mg PO HS 30 Days Qty: 30 0RF melatonin 5 mg capsule 5 mg PO HS PRN (Reason: sleep) 30 Days Qty: 30 0RF Referrals: No Primary/Family,Physician [Primary Care Provider] Patient/Caregiver Discharge Instructions Education Materials: Alcoholism: Getting Help, Alcohol Addiction, Alcohol Withdrawal: What to Expect, Addiction Ask These Questions, Addiction: Getting Help, Addiction Recovery Counseling Print Language: Pashto Stand Alone Forms: Claire Award Info., Patient Portal Info Letter Discharge Order Discharge Orders: Discharge (Routine); Ordered 01/16/25 Ordered By: Andrea Conley Quality Discharge Quality Measures VTE prophylaxis Attestestation MD Attestation I reviewed labs, imaging, EKG, home medications and prior available records. Face to face evaluation was performed by me. I have personally examined the patient and discussed assessment and plan with the IM team. I reviewed the resident note and agree with the plan with exceptions as below. Alcohol abuse Alcohol withdrawal CIWA scores improving No signs of alcohol withdrawal today Continue Librium taper upon discharge Patient is interested in joining a rehab Time spent is 42 minutes. More than 50% of the time was spent on patient education and coordination of care.
--- NOTE | 2025-01-16 12:45 | PC.SS ---
SS met with pt this morning who explained he is able to find his own transportation home. SS was informed by bedside nurse pt is now requesting an [employer]. SS attempted to setup [employer] transportation but was unsuccessful due to not having any avaiable drivers in the area. SS met with pt to inform him [employer] is not guaranteed transport. SS has called [employer] and setup transport for 12:45pm (5-10 minutes). SS provided bedside nurse with taxi voucher for [employer]. Pt is aware.
== END 2025-01-16 12:42 | disposition home or self-care (01) | DRG 775 ==
LOC: SERX 08:50 → SERHOLD 08:55 → S2NX 17:10 → S3NX 01-15 23:53
PROVIDERS: Admitting Provider Student in an Organized Health Care Education/Training Program; Emergency Provider Emergency Medicine; Visit Provider Student in an Organized Health Care Education/Training Program
DX: F10.139 Alcohol abuse with withdrawal, unspecified (principal); G93.40 Encephalopathy, unspecified; K80.10 Calculus of gallbladder with chronic cholecystitis without obstruction; K75.81 Nonalcoholic steatohepatitis (NASH); F32.A Depression, unspecified; E03.9 Hypothyroidism, unspecified; K70.30 Alcoholic cirrhosis of liver without ascites; Z79.899 Other long term (current) drug therapy
CPT/HCPCS: 36415; 70450; 71250; 72125; 74176; 74181; 76705; 80053; 80307; 80320; 81001; 82140; 82150; 83690; 83735; 84100; 84439; 84443; 84481; 85025; 85610; 85730; 93005; 93225; 96361; 96374; 96375; 99284; J1644; J1885; J2060; J2405; J3360; J3411; J3475; J3490; J7120; A9270; G0480